=== PATIENT | male | born 1935 | race Caucasian/White ===

== ENCOUNTER 2016-05-21 16:19 | Emergency (ER) | payer OTHER ==
[~2016-05-21] VITALS: Ht 177.8 cm; Wt 95.1 kg
[~2016-05-21 16:19] MED LIST: ASCA500 PO; ASPEC81 PO; CRD200 PO; EZET10TA41 PO; LEVO-217 PO; LISI5TAB3 PO; OMEG10007 PO
[2016-05-21 16:21] VITALS: TEMP 36.7; Ht 177.8 cm; Wt 95.1 kg
[2016-05-21] MEDS ORDERED: SODIUM CHLORIDE 0.9% 1000ML 1,000 ML IV STA (16:39)
[2016-05-21] MEDS ORDERED: ONDANSETRON INJ 2 MG/ML 2 ML VIAL IV STA (16:39)
[2016-05-21] MEDS ORDERED: MoRPHine SULFATE 10 MG/ML CARP/VIAL IV PRN (16:45)
[2016-05-21 16:52] LABS: BASO % 0.3 %; BASO ABS # 0.02 K/uL (0-0.2); COMPLETE YES; EOS % 1.1 %; HEMATOCRIT 40.4 % (42-52); IG% 0.1 %; LYMPH % 13.8 %; LYMPH ABS # 0.99 K/uL (1.2-3.4); MEAN CELL VOLUME 94.4 fL (80-100); MEAN CORPUSCULAR HEMOGLOBIN 31.8 pg (25-34); MEAN CORPUSCULAR HGB CONC 33.7 g/dl (32-36); MEAN PLATELET VOLUME 11.5 fL (7.4-10.4); MONO % 6.3 %; NEUT % 78.4 %; PLATELET COUNT 188 K/uL (130-400); RED BLOOD COUNT 4.28 M/uL (4.7-6.1)
[2016-05-21] MEDS ORDERED: MULT-506 PO (16:54)
[2016-05-21] MEDS ORDERED: LEVO100T PO (16:54)
[2016-05-21] MEDS ORDERED: CHOL1000 PO (16:54)
[2016-05-21] MEDS ORDERED: ATOR-26 PO (17:02)
[2016-05-21 17:12] LABS: BUN/CREATININE RATIO 16.9 (10-20); CALCIUM 9.9 mg/dl (8.5-10.1); CREATININE 1.6 mg/dl (0.60-1.40); POTASSIUM 3.9 mmol/L (3.5-5.1)
--- NOTE | 2016-05-21 17:19 | DIAGNOSTIC IMAGING REPORT ---
ABDOMEN AND PELVIS CT WITHOUT CONTRAST CT DOSE: 1404.88 mGy.cm HISTORY: Flank pain EVALUATE FLANK PAIN/HEMATURIA TECHNIQUE: Multiaxial CT images of the abdomen and pelvis were performed without the use of intravenous and oral contrast according to the standard department stone protocol. COMPARISON STUDY: None. FINDINGS: Minimal bibasilar atelectasis. Liver is unremarkable. Gallbladder is negative for distention. Fatty infiltration of the pancreas. Spleen is uniform. Left kidney demonstrate several parapelvic cysts with a 2 mm nonobstructing renal cortical calcification. Right kidney demonstrates several renal peripelvic cysts with mild superimposed hydronephrosis and hydroureter. There is a 4 mm obstructing calculus mid right ureter. Mild periureteral infiltrative change. Bladder is midline. There are no bladder calcifications. Findings of chronic colonic diverticulosis. 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 Bladder is midline. Maximum dimension IMPRESSION: 1. 4 mm obstructing calculus mid right ureter. 2. Mild right hydroureteronephrosis with mild perinephric and periureteral fat stranding. 3. 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 4. Nonobstructive bowel pattern. 6. Chronic colonic diverticulosis. Electronically signed by: Pepe Haque M.D. 05/21/2016 5:17 PM Dictated Date/Time: 05/21/2016 5:14 PM
--- NOTE | 2016-05-21 17:28 | EMERGENCY ROOM VISIT NOTE ---
ED Visit Note First contact with patient: 16:24 Patient was seen by our PA/ENGRAVING OPERATOR. I was involved in the patient's care and did evaluate the patient myself. I was involved in the care throughout the ER stay. The patient presents with right flank pain. He has an obstructing right ureteral calculus by CT. He is stable for discharge with outpatient follow-up.
[2016-05-21] MEDS ORDERED: TAMS0.4C38 PO (17:35)
[2016-05-21] MEDS ORDERED: HYDR-5688 PO (17:37)
[2016-05-21 18:11] VITALS: BP 150/81; PULSE 59; O2SAT 98
--- NOTE | 2016-05-21 23:02 | EMERGENCY ROOM VISIT NOTE ---
ED Visit Note First contact with patient: 16:24 Chief Complaint: Abdominal pain. History of Present Illness: Mr. Pickett is a 80 year-old white male who is brought into the ED via ambulance complaining of right mid quadrant abdominal pain. Historically patient reports he has a history of kidney stones Patient reports a acute mid right onset of quadrant abdominal pain that started approximately 2 hours ago while he was driving home from [place]. At that time he reports his pain was sharp. He rated his discomfort 4/10. He does report her lab the pain started he noticed that the discomfort was radiating towards the right flank area. He reports he was having difficulty driving due to pain and stopped at a local fire station. EMS was activated and he was brought into the ED. While waiting for the ambulance arrived he reports he became nauseated and had one episode of vomiting. He had no additional symptoms. Additionally he does report that he has been feeling well over the last few days and his previous passage of kidney stone was over 20 years ago and he remember the pain being more severe. Since vomiting he reports he is pain-free. Patient denies fevers, chills, sweats, skin eruptions, skin color changes, upper respiratory tract symptoms, shortness of breath, chest pain, diarrhea, constipation, rectal bleeding, black/tarry stools, urinary symptoms, hematuria. Review of Systems: As noted above in history of present illness. All body systems were reviewed and found to be negative as noted above. Past Medical History: As previously noted myocardial infarction, hypertension, hypothyroidism, atrial fibrillation, dyslipidemia, S/P right upper lobectomy. Current Medications: Medications Dose Route/Sig Max Daily Dose Days Date Category Dose Instructions Lipitor (Atorvastatin Calcium) 80 Mg Tab 80 Mg PO HS 05/21/16 Reported Multivitamin (Multivitamins) Tab 1 Tab PO DAILY 05/21/16 Reported Vitamin D3 (Cholecalciferol) 1,000 Unit Tab 1 Tab PO DAILY 05/21/16 Reported Synthroid (Levothyroxine Sodium) 100 Mcg Tab 100 Mcg PO DAILY 05/21/16 Reported [place]-3 (Fish Oil) 1 Ea Cap 3 Cap PO DAILY 03/31/08 Reported Ecotrin Or Generic * (Aspirin) 81 Mg Ectab 81 Mg PO DAILY 03/31/08 Reported Zestril (Lisinopril) 5 Mg Tab 5 Mg PO DAILY 03/31/08 Reported Cordarone * (Amiodarone HCl) 200 Mg Tab 200 Mg PO DAILY 03/31/08 Reported Allergies to Medications: Patient denies. Social History: Patient is currently retired; he feels safe in his home environment; he denies tobacco use. Physical Examination: Vital Signs: Date Time Temp Pulse Resp B/P Pulse Ox O2 Delivery O2 Flow Rate FiO2 05/21/16 17:12 59 05/21/16 16:21 36.7 59 18 161/79 99 Room Air GENERAL: 80-year-old male in no acute distress, nontoxic-appearing, afebrile and hemodynamically stable. NEUROLOGICAL: Awake, alert and oriented to person, place and time. Answering questions appropriately and following commands. Normal gait. Good hand eye coordination. SKIN: Warm, dry and pink. No soft tissue eruptions or trauma noted. HEENT: Atraumatic and normocephalic. PERRL. Sclera white and conjunctiva pink. Oral cavity moist and pink. Pharynx is nonerythematous or edematous. Speech normal. No lymphadenopathy. Trachea midline. No jugular venous distention. BACK: No tenderness over the bony spine. No CVA tenderness. THORAX: Lungs sounds are clear to auscultation and equal bilaterally with symmetrical chest wall. No wheezing, rales or rhonchi. No crepitus, tenderness , subcutaneous air or deformities noted. HEART: Regular rate and rhythm. No gallops, rubs or murmurs are appreciated. ABDOMEN: Flat, soft and nontender. Positive bowel sounds in all quadrants. No guarding, rigidity or organomegaly. EXTREMITIES: Moves all extremities well on command and with purpose. All distal neurovascular statuses are intact and equal bilaterally. ED Course: Patient is assessed as noted above. Laboratory Testing: Test 05/21/16 16:35 Range/Units White Blood Count 7.20 4.8-10.8 K/uL Red Blood Count 4.28 4.7-6.1 M/uL Hemoglobin 13.6 14.0-18.0 g/dL Hematocrit 40.4 42-52 % Mean Corpuscular Volume 94.4 80-100 fL Mean Corpuscular Hemoglobin 31.8 25-34 pg Mean Corpuscular Hemoglobin Concent 33.7 32-36 g/dl Platelet Count 188 130-400 K/uL Mean Platelet Volume 11.5 7.4-10.4 fL Neutrophils (%) (Auto) 78.4 % Lymphocytes (%) (Auto) 13.8 % Monocytes (%) (Auto) 6.3 % Eosinophils (%) (Auto) 1.1 % Basophils (%) (Auto) 0.3 % Neutrophils # (Auto) 5.65 1.4-6.5 K/uL Lymphocytes # (Auto) 0.99 1.2-3.4 K/uL Monocytes # (Auto) 0.45 0.11-0.59 K/uL Eosinophils # (Auto) 0.08 0-0.5 K/uL Basophils # (Auto) 0.02 0-0.2 K/uL RDW Standard Deviation 52.3 36.4-46.3 fL RDW Coefficient of Variation 15.2 11.5-14.5 % Immature Granulocyte % (Auto) 0.1 % Immature Granulocyte # (Auto) 0.01 0.00-0.02 K/uL Sodium Level 146 136-145 mmol/L Potassium Level 3.9 3.5-5.1 mmol/L Chloride Level 111 98-107 mmol/L Carbon Dioxide Level 33 21-32 mmol/L Anion Gap 2.0 3-11 mmol/L Blood Urea Nitrogen 27 7-18 mg/dl Creatinine 1.60 0.60-1.40 mg/dl Est Creatinine Clear Calc Drug Dose 43.3 ml/min Estimated GFR () 46.8 Estimated GFR (Non- 40.4 BUN/Creatinine Ratio 16.9 10-20 Random Glucose 178 70-99 mg/dl Calcium Level 9.9 8.5-10.1 mg/dl Total Bilirubin 0.4 0.2-1 mg/dl Direct Bilirubin 0.2 0-0.2 mg/dl Aspartate Amino Transf (AST/SGOT) 38 15-37 U/L Alanine Aminotransferase (ALT/SGPT) 36 12-78 U/L Alkaline Phosphatase 75 45-117 U/L Total Protein 7.0 6.4-8.2 gm/dl Albumin 3.5 3.4-5.0 gm/dl Lipase 110 73-393 U/L Noncontrast Abdominal/Pelvic CT: Was reviewed by myself and read by the radiologist and shows 4 mm obstructing calculus in the right mid ureter, mild right hydroureterophrosis with mild perinephric and per ureteric fat stranding, calcified aneurysms in the mid abdominal aorta as well as the right iliac artery , nonobstructive bowel gas pattern, chronic colonic diverticulosis without signs of diverticulitis. Patient was hydrated with normal saline and received 4 mg of Zofran IV. Patient was reassessed multiple times during his stay in the emergency department. Patient's case was reviewed with Dr. Cardenas; he apparently assessed the patient we agreed on diagnostic approach, treatment, disposition and plan. Patient was educated about tonight's findings and instructed on his treatment plan; he verbalizes understanding and agreement with this plan. Clinical Impression: Right ureter calculus. Decision-Making: Initially my differential diagnosis I considered kidney stone, pyelonephritis, pancreatitis, hepatitis, bowel obstruction, constipation, musculoskeletal disorder, appendicitis and other causes. Disposition: Patient discharged home in stable condition; prior to departure he was reassessed and remained pain-free and reported resolution of nausea. Plan: Patient was prescribed 0.4 mg of Flomax once a day for 5 days. Patient was placed on a sliding pain scale of ibuprofen, acetaminophen and [place] as needed; he was instructed on the proper precautions of narcotics. Patient was encouraged to stay well-hydrated increase clear fluids. Patient was encouraged to strain all urine for stones. Patient was encouraged to follow-up with personal physician for recheck and referral to urology. Patient was encouraged return the ED for worsening symptoms, fevers, or any new/ concerning symptoms.
== END 2016-05-21 18:13 | disposition home or self-care (01) ==
LOC: EDBD 16:19 → C.EDC 16:20
DX: N20.1 Calculus of ureter (principal); I25.2 Old myocardial infarction; I10 Essential (primary) hypertension; E03.9 Hypothyroidism, unspecified; I48.91 Unspecified atrial fibrillation; E78.5 Hyperlipidemia, unspecified; Z79.82 Long term (current) use of aspirin

== ENCOUNTER 2016-05-30 16:34 | Emergency (ER) | payer OTHER ==
[~2016-05-30 16:34] MED LIST changes: -ASCA500 PO; +ATOR-26 PO; +CHOL1000 PO; -EZET10TA41 PO; +HYDR-5688 PO; -LEVO-217 PO; +LEVO100T PO; +MULT-506 PO
[2016-05-30 16:46] VITALS: TEMP 36.3
[2016-05-30] MEDS ORDERED: SODIUM CHLORIDE 0.9% 500ML 500 ML IV STA (17:14)
[2016-05-30] MEDS ORDERED: KETOROLAC TROMETHAMINE 30 MG/ML VIAL IV STA (17:14)
[2016-05-30] MEDS ORDERED: PROMETHAZINE HCL INJ 12.5 MG in SODIUM CHLORIDE 0.9% 50ML 50 ML IV STA (17:56)
[2016-05-30 18:00] LABS: BASO % 0.2 %; BASO ABS # 0.02 K/uL (0-0.2); COMPLETE YES; EOS % 1.2 %; HEMATOCRIT 41.2 % (42-52); IG% 0.3 %; LYMPH % 12.2 %; LYMPH ABS # 1.27 K/uL (1.2-3.4); MEAN CELL VOLUME 93.4 fL (80-100); MEAN CORPUSCULAR HEMOGLOBIN 31.5 pg (25-34); MEAN CORPUSCULAR HGB CONC 33.7 g/dl (32-36); MEAN PLATELET VOLUME 11.6 fL (7.4-10.4); MONO % 7.9 %; NEUT % 78.2 %; PLATELET COUNT 205 K/uL (130-400); RED BLOOD COUNT 4.41 M/uL (4.7-6.1); WHITE BLOOD COUNT 10.42 K/uL (4.8-10.8)
[2016-05-30] MEDS ORDERED: CRD200 PO (18:11)
[2016-05-30] MEDS ORDERED: ASPI81CH2 PO (18:11)
[2016-05-30] MEDS ORDERED: LSN5 PO (18:11)
[2016-05-30 18:16] LABS: BLOOD UREA NITROGEN 27 mg/dl (7-18); BUN/CREATININE RATIO 16.7 (10-20); CALCIUM 9.8 mg/dl (8.5-10.1); CARBON DIOXIDE 30 mmol/L (21-32); CHLORIDE 108 mmol/L (98-107); GLUCOSE 164 mg/dl (70-99); SODIUM 142 mmol/L (136-145)
--- NOTE | 2016-05-30 19:14 | DIAGNOSTIC IMAGING REPORT ---
KUB CLINICAL HISTORY: Nephrolithiasis. Flank pain. Known obstructing right ureteral calculus. FINDINGS: 2 AP supine abdominal radiographs are correlated with abdominal CT dated 05/21/2016. There is a nonobstructed abdominal bowel gas pattern. A 5 mm calcification projects over the right vesicoureteral junction. This likely represents distal passage of the patient's known obstructing right ureteral stone. No additional calcifications are seen projecting over either kidney. Additional vascular calcifications and phleboliths are identified in the pelvis. There is advanced atherosclerotic calcification of the abdominal aorta. The skeletal structures are osteopenic. There is moderate lumbosacral spondylosis. The bony pelvis appears intact. IMPRESSION: A 5 mm calcification projects over the right vesicoureteral junction. This likely represents distal passage of the patient's known right ureteral stone. Electronically signed by: Jacobo Parham M.D. 05/30/2016 7:12 PM Dictated Date/Time: 05/30/2016 7:09 PM
[2016-05-30 19:54] VITALS: BP 159/84; PULSE 56; O2SAT 97
--- NOTE | 2016-05-30 20:02 | EMERGENCY ROOM VISIT NOTE ---
History Report prepared by Latia: Lopez Butler Under the Supervision of: Dr. Noel Grover M.D. First contact with patient: 17:08 Chief Complaint: KIDNEY STONE Stated Complaint: KIDNEY STONE History of Present Illness The patient is a 80 year old male who presents to the Emergency Room with complaints of worsening right flank pain that started around 1300 this afternoon. The patient says the pain radiates into the right groin and the pain is sharp. He says the pain is currently terrible. He was here May 21 and was diagnosed with a right kidney stone. The patient's kidney stone pain started flaring up again today. He got his prescription of pain medication, but he has not taken it yet because he says he has not had much pain over the past week. The patient denies vomiting or urinary symptoms. He is on Flomax. Source of History: patient Onset: Around 1300 today Position: other (right flank) Symptom Intensity: severe Quality: other (kidney stone pain) Timing: worsening Associated Symptoms: + back pain, No urinary symptoms, No vomiting Review of Systems See HPI for pertinent positives & negatives. A total of 10 systems reviewed and were otherwise negative. Past Medical & Surgical Medical Problems: (1) Atrial fibrillation (2) Heart disease (3) No chronic diseases present Family History Cancer Kidney disease Social History Smoking Status: Former Smoker Smokeless Tobacco Use: No Alcohol Use: none Marital Status: Occupation Status: retired Current/Historical Medications Scheduled Amiodarone HCl (Amiodarone HCl), 200 MG PO DAILY Aspirin (Aspirin), 1 TAB PO DAILY Atorvastatin (Lipitor), 80 MG PO HS Cholecalciferol (Vitamin D3), 1 TAB PO DAILY Fish Oil ([place]-3), 3 CAP PO DAILY Levothyroxine Sodium (Synthroid), 100 MCG PO DAILY Lisinopril (Lisinopril), 5 MG PO DAILY Multivitamin (Multivitamin), 1 TAB PO DAILY Allergies Coded Allergies: No Known Allergies (Verified , 05/30/16) Uncoded Allergies: TAPE - USE PAPER TAPE (Allergy, Unknown, 03/31/02) Physical Exam Vital Signs Date Time Temp Pulse Resp B/P Pulse Ox O2 Delivery O2 Flow Rate FiO2 05/30/16 19:54 56 18 159/84 97 Room Air 05/30/16 16:46 36.3 48 20 147/69 98 Room Air Physical Exam Constitutional: Vital signs reviewed. Eyes: Pupils are equal round reactive to light. Conjunctiva are noninjected. ENT: Pharynx is clear without erythema or exudate. Mucous membranes are moist. Neck supple without meningeal signs. Respiratory: Clear to auscultation bilaterally. Breath sounds are equal bilaterally. Cardiovascular: Regular rate and rhythm. No rubs or gallops. GI: Soft, nondistended and nontender. Bowel sounds are present. Musculoskeletal: No peripheral edema. No lower extremity tenderness. Integumentary: No cyanosis. Neurological: The patient is awake and alert. No focal deficits. Psychiatric: Normal affect. Medical Decision & Procedures ER Provider Diagnostic Interpretation: X-ray results as stated below per interpretation by me and the radiologist: KUB CLINICAL HISTORY: Nephrolithiasis. Flank pain. Known obstructing right ureteral calculus. FINDINGS: 2 AP supine abdominal radiographs are correlated with abdominal CT dated 05/21/2016. There is a nonobstructed abdominal bowel gas pattern. A 5 mm calcification projects over the right vesicoureteral junction. This likely represents distal passage of the patient's known obstructing right ureteral stone. No additional calcifications are seen projecting over either kidney. Additional vascular calcifications and phleboliths are identified in the pelvis. There is advanced atherosclerotic calcification of the abdominal aorta. The skeletal structures are osteopenic. There is moderate lumbosacral spondylosis. The bony pelvis appears intact. IMPRESSION: A 5 mm calcification projects over the right vesicoureteral junction. This likely represents distal passage of the patient's known right ureteral stone. Electronically signed by: Jacobo Parham M.D. 05/30/2016 7:12 PM Dictated Date/Time: 05/30/2016 7:09 PM Laboratory Results 05/30/16 17:50 Red Blood Count 4.41, Mean Corpuscular Volume 93.4, Mean Corpuscular Hemoglobin 31.5, Mean Corpuscular Hemoglobin Concent 33.7, Mean Platelet Volume 11.6, Neutrophils (%) (Auto) 78.2, Lymphocytes (%) (Auto) 12.2, Monocytes (%) (Auto) 7.9, Eosinophils (%) (Auto) 1.2, Basophils (%) (Auto) 0.2, Neutrophils # (Auto) 8.16, Lymphocytes # (Auto) 1.27, Monocytes # (Auto) 0.82, Eosinophils # (Auto) 0.12, Basophils # (Auto) 0.02 05/30/16 17:50 Test 05/30/16 17:50 White Blood Count 10.42 K/uL (4.8-10.8) Red Blood Count 4.41 M/uL (4.7-6.1) Hemoglobin 13.9 g/dL (14.0-18.0) Hematocrit 41.2 % (42-52) Mean Corpuscular Volume 93.4 fL (80-100) Mean Corpuscular Hemoglobin 31.5 pg (25-34) Mean Corpuscular Hemoglobin Concent 33.7 g/dl (32-36) Platelet Count 205 K/uL (130-400) Mean Platelet Volume 11.6 fL (7.4-10.4) Neutrophils (%) (Auto) 78.2 % Lymphocytes (%) (Auto) 12.2 % Monocytes (%) (Auto) 7.9 % Eosinophils (%) (Auto) 1.2 % Basophils (%) (Auto) 0.2 % Neutrophils # (Auto) 8.16 K/uL (1.4-6.5) Lymphocytes # (Auto) 1.27 K/uL (1.2-3.4) Monocytes # (Auto) 0.82 K/uL (0.11-0.59) Eosinophils # (Auto) 0.12 K/uL (0-0.5) Basophils # (Auto) 0.02 K/uL (0-0.2) RDW Standard Deviation 50.7 fL (36.4-46.3) RDW Coefficient of Variation 14.9 % (11.5-14.5) Immature Granulocyte % (Auto) 0.3 % Immature Granulocyte # (Auto) 0.03 K/uL (0.00-0.02) Anion Gap 4.0 mmol/L (3-11) Estimated GFR () 46.8 Estimated GFR (Non- 40.4 BUN/Creatinine Ratio 16.7 (10-20) Calcium Level 9.8 mg/dl (8.5-10.1) Laboratory results as reviewed by me. Medications Administered Medications (Trade) Dose Ordered Sig/Taylor Route Start Time Stop Time Status Last Admin Dose Admin Sodium Chloride (Nss 500ml) 500 ml @ 999 mls/hr Q31M STAT IV 05/30/16 17:14 05/30/16 17:44 DC 05/30/16 18:03 999 MLS/HR Ketorolac Tromethamine 10 mg 10 mg NOW STAT IV 05/30/16 17:14 05/30/16 17:16 DC 05/30/16 18:04 10 MG Promethazine HCl/ Sodium Chloride (Phenergan Inj/ Nss 50ml) 50.5 ml @ 204 mls/hr NOW STAT IV 05/30/16 17:56 05/30/16 18:10 DC 05/30/16 18:13 204 MLS/HR ED Course 1710: The patient was evaluated in room B7. A complete history and physical exam was performed. 1713: Ordered Toradol Inj 10 mg IV, NSS 500 ml @ 999 mls/hr IV. 1755: Ordered Promethazine HCl 12.5mg/Sodium Chloride 50.5 ml @ 204 mls/hr IV. 1756: I reevaluated the patient and he says that he does not feel any different , but he has not received any medications yet. 1841: I reevaluated the patient and he feels much better. 1928: I reevaluated the patient and he feels fine with no pain. He has Flomax and Sutton at home. The nurse will dip his urine. The patient verbally expressed understanding and agreement of the treatment plan. The patient will be discharged. 1948: The urine dip showed blood and protein. Medical Decision This is a 80-year-old male who presents with renal colic.I did perform a limited focused review of portions of the patient's old chart on the electronic medical record. The patient was here May [address] scan which showed a 4 mm mid-right ureteral stone with mild hydronephrosis, a 3.5 cm aneurysm of the aorta as well as a small aneurysm of the right iliac. I did evaluate the patient as noted above. IV access was established. Urine dip did not show any evidence of infection. I did order and review the patient' s blood work as noted in the electronic medical record. Creatinine is 1.6 which is unchanged. I did treat patient with Toradol 10 mg IV, Phenergan IV and normal saline IV. I did order a KUB x-ray. I did review the images myself as well as the radiology report as described above. His stone appears to be down in the UVJ on the right side. I did reassess the patient. He is feeling much better at this time and has no significant pain. He was informed of his test results. He will continue taking Flomax until he passes the stone. He will use Sutton for pain control as prescribed by the previous condition. He was discharged in good condition. Impression Primary Impression: Renal colic Scribe Attestation The scribe's documentation has been prepared under my direct and personally reviewed by me in its entirety. I confirm that the note above accurately reflects all work, treatment, procedures, and medical decision making performed by me. Departure Information Dispostion Home / Self-Care Referrals Grace Silverman M.D. (PCP) Forms HOME CARE DOCUMENTATION FORM, IMPORTANT VISIT INFORMATION Patient Instructions Kidney Stones Expectant Therapy, My [facility] Additional Instructions You have been examined and treated today on an emergency basis only. This is not a substitute for, or an effort to provide, complete comprehensive medical care. It is impossible to recognize and treat all injuries or illnesses in a single emergency department visit. It is therefore important that you follow up closely with your physician. Call as soon as possible for an appointment. Return for worsening symptoms or if you develop fever, vomiting, or any other concerning symptoms.
[2016-05-30 20:20] LABS: URINE APPEARANCE CLEAR (CLEAR); URINE BILIRUBIN NEG (NEG); URINE COLOR DK YELLOW; URINE EPITHELIAL CELL AUTO 0-5 /lpf (0-5); URINE NITRITE NEG (NEG); URINE PH 5.5 (4.5-7.5); UROBILINOGEN NEG (NEG)
[2016-05-30 20:21] LABS: MANUAL MICROSCOPIC REQUIRED? NO; REVIEW REQ? YES
== END 2016-05-30 19:58 | disposition home or self-care (01) ==
LOC: C.EDB 16:35
DX: N20.1 Calculus of ureter (principal); I71.9 Aortic aneurysm of unspecified site, without rupture; I48.91 Unspecified atrial fibrillation; I51.9 Heart disease, unspecified; Z87.891 Personal history of nicotine dependence; Z79.82 Long term (current) use of aspirin; Z79.899 Other long term (current) drug therapy; Z80.9 Family history of malignant neoplasm, unspecified; Z84.1 Family history of disorders of kidney and ureter

== ENCOUNTER 2024-04-03 21:47 | Inpatient (IN) ==
--- OUTSIDE RECORDS SUMMARY | 2024-04-03 21:54 | External Medical Summary | Summary of Care ---
Author Name Unknown Organization [facility] Address [address] [place] [address] Phone [phone] Care Team Providers Care Well Logging Captain Mud Analysis Name Role Phone Edgardo Sánchez Primary Care Provider Reason for Visit * Reason Comments Medication Refill Encounter Details Date Type Department Care Team (Late st Contact Info) Description 03/07/2024 Refill isinger at Home, [facility] [address] [place] [address] Delgado Velázquez MD [address] [place] [address] COPD, group A, by GOLD 2017 classification (HCC) Allergies Active Allergy Reactions Criticality Noted Date Comments Jason Inhibitors Edema face/lips/tongue High 4 angioedema Latex 07/21/2016 Pt states he breaks out from this documented as of this encounter (statuses as of 03/07/2024) Medications ASPIRIN 81 MG PO TABSIndications:Cor onary atherosclerosis 1 daily 0 0 05/17/19 08 Active VITAMIN D 1000 UNIT PO CAPS 1 capsule daily 0 0 12/09/19 09 Active Multi-Vitamins Oral Tablet Take 1 Tablet by mouth in the morning. Active Diclofenac Sodium 1 % External Gel (Voltaren)Indicatio ns:Osteoarthritis of left knee, unspecified osteoarthritis type Apply 4 g topically to affected area 3 times a day as needed for Pain, Moderate. Apply to the affected knee as needed. 1100 g 5 3 5:05 PM EST 01/10/20 23 Active Additional Information Patient not taking.Reported on 03/02/2024 Levothyroxine Sodium 100 MCG Oral Tablet (Levoxyl)Indication s:Hypothyroidism due to acquired atrophy of thyroid TAKE ONE TABLET BY MOUTH DAILY AT LEAST 30 MINUTES PRIOR TO FIRST MEAL OF THE DAY OR OTHER MEDS 100 Tablet 3 4 7:55 AM EST 03/12/19 24 025 Active Atorvastatin Calcium 80 MG Oral Tablet (Lipitor)Indication s:Dyslipidemia, goal LDL below 100 TAKE ONE TABLET BY MOUTH EVERY MORNING 100 Tablet 3 4 9:23 AM EST 03/16/19 24 Active Amiodarone HCl 200 MG Oral Tablet (Cordarone)Indicati ons:Paroxysmal atrial fibrillation (HCC) TAKE ONE TABLET BY MOUTH EVERY MORNING 100 Tablet 3 4 7:19 AM EST 07/21/19 24 025 Active Albuterol Sulfate HFA 108 (90 Base) MCG/ACT Inhalation Aerosol SolutionIndications :COPD, group A, by GOLD 2017 classification ([facility]),COPD exacerbation (HCC) Inhale 2 Puffs by mouth every 6 hours as needed for Shortness of Breath. 6.7 g 3 4 10:57 AM EST 12/29/19 24 Active Fluticasone-Salmete rol 250-50 MCG/ACT Inhalation Aerosol Powder Breath Activated (Advair Diskus)Indications: COPD, group A, by GOLD 2017 classification ([facility]),COPD exacerbation (HCC) Inhale 1 Puff by mouth in the morning and 1 Puff before bedtime. 60 Each 12 4 4:19 PM EST 01/13/20 24 Active Additional Information Patient taking differently: (No dose reported), Inhalation BID (.AM/PM),Pt taking 500/50 currently and plans to switch to 250/50 when he runs out of 500/50, Reported on 03/02/2024 Furosemide 20 MG Oral Tablet (Lasix) Take 1 Tablet by mouth as needed for Shortness of Breath, swelling 30 Tablet 11 5 6:30 PM EST 03/02/19 25 Active Incruse Ellipta 62.5 MCG/ACT Inhalation Aerosol Powder Breath Activated (umeclidinium [place])Indications :COPD, group A, by GOLD 2017 classification ([facility]) Inhale 1 Puff by mouth in the morning. 90 Each 03/07/19 25 Active Incruse Ellipta 62.5 MCG/ACT Inhalation Aerosol Powder Breath Activated (umeclidinium [place])Indications :COPD, group A, by GOLD 2017 classification ([facility]) Inhale 1 Puff by mouth in the morning. 90 Each 4 11:05 AM EST 01/08/20 24 025 Discontin ued(Refil l) documented as of this encounter (statuses as of 03/07/2024) Active Problems Problem Noted Date Diagnosed Date HFrEF (heart failure with reduced ejection fract ion) 02/21/2024 Assessment & Plan (02/21/2024 10:02 PM EST): Euvolemic today Not on diuretic No longer on jason/arb due to angioedema Disorder of parathyroid gland 02/21/2024 Assessment & Plan (02/21/2024 10:02 PM EST): S/p parathyroidectomy Hypothyroidism 02/21/2024 Assessment & Plan (02/21/2024 10:02 PM EST): Continue synthroid H/O endovascular stent graft for abdominal aorti c aneurysm 12/09/2023 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 05/25/2023 Overview: Per CKD protocol Assessment & Plan (02/21/2024 10:02 PM EST): BP slightly elevated today, will continue to monitor for now Assessment & Plan (12/16/2023 11:49 AM EDT): Current CKD Stage: Stage III "RED FLAG" symptoms: NO IDENTIFIED SYMPTOMS CKD Complications: CAD HTN Additional Comments Recently d/c lisinopril due to angioedema BP stable today Chronic kidney disease, stage 3b 05/25/2023 Overview: Per CKD protocol Type 2 diabetes mellitus wit h stage 3b chronic kidney disease 05/25/2023 Overview: Per CKD protocol Assessment & Plan (02/21/2024 10:02 PM EST): A1c improved past 2 years Infrarenal abdominal aortic aneurysm (AAA) witho ut rupture 12/18/2021 Overview (12/16/2023): 11/27/23- S/P repair of asymptomatic 6.0 cm AAA with EVAR, RCIA extension graft, coil embolization of RIIA and viabahn stent into REIA by Dr. Crenshaw Iliac artery aneurysm, bilateral 12/18/2021 Type 2 diabetes mellitus wit h hemoglobin A1c goal of less than 8.0% 05/22/2021 Asymptomatic bilateral carotid artery stenosis 0 05/09/2020 Age-related osteoporosis wit hout current pathological fracture 05/09/2020 Assessment & Plan (02/21/2024 10:02 PM EST): Vitamin D Coronary artery disease invo lving shinnecock coronary artery of shinnecock heart without angina pectoris 05/09/2020 Overview (12/16/2023): Nuclear stress 09/04/2023: Interpretation Summary The LV ejection fraction is calculated at 59%. This pharmacologic nuclear stress trest reveals an infarct of the inferior and inferior lateral myocardium and no active ischemia. These findings are most consistent with the Right Coronary or Left Circumflex arteries. No prior studies for comparison. Assessment & Plan (02/21/2024 10:02 PM EST): Follows with cardiology S/p inferior wall NH Assessment & Plan (12/16/2023 11:48 AM EDT): Continue statin COPD, group A, by GOLD 2017 classification 11/27 Overview: Per COPD GOLD Classification Assessment & Plan (02/21/2024 10:02 PM EST): "RED FLAG" COPD symptoms: Increased dyspnea on exertion Cough Wheezing Medication Regimen All Classes - JASBIR Class B, C, D - LAMA Class D, Asthma/COPD Overlap - Inhaled Glucocorticoid-LABA Combination Inhaler Remote Patient Monitoring Vendor: No Connected RPM Device(s): No current devices Self-Management plan Other/Additional Comments: albuterol q4hrs prn Exacerbation plan Solumedrol 40mg IM/IV Chest Xray Additional Comments: Breathing at baseline today Encouraged use of albuterol if needed for sob/wheezing(reports he did not know what this was for) History of NH (myocardial infarction) 07/11/2016 Abdominal aortic aneurysm (AAA) without rupture 05/09/2016 Paroxysmal atrial fibrillation 05/09/2016 Assessment & Plan (02/21/2024 10:02 PM EST): Rate controlled, continue amiodarone Not on anticoag Beta-blockers contraindicated 11/13/2011 HTN, goal below 140/90 09/15/2011 Dyslipidemia, goal LDL below 100 01/25/2009 Overview (01/25/2009): Per Lipid Taxonomy. Assessment & Plan (02/21/2024 10:02 PM EST): Continue statin CHR ISCHEMIC HRT DIS NOS 03/31/2002 Overview (03/17/2012): Vivek documented as of this encounter (statuses as of 03/07/2024) Resolved Problems Problem Noted Date Diagnosed Date Resolved Date Type 2 diabetes mellitus wit h stage 3b chronic kidney disease, without long-term current use of insulin 02/21/2024 03/03/2024 Disorder of parathyroid gland 01/06/2023 11/11/2023 Type 2 diabetes mellitus wit h stage 3a chronic kidney disease, without long-term current use of insulin 11/11/2021 05/28/2023 Overview: Per CKD protocol Stage 3a chronic kidney disease 06/26/2020 05/28/2023 Overview: Per CKD protocol Hypertensive kidney disease with stage 3a chronic kidney disease 12/26/2019 05/28/2023 Overview: Per CKD protocol Prediabetes 10/25/2019 05/22/2021 Overview: Per Prediabetes protocol History of kidney stones 12/31/2018 Overview (07/05/2019): Historical. H/O adenomatous polyp of colon 06/21/2018 07/05/2019 Overview (07/05/2019): Historical. Hypertensive kidney disease with chronic kidney disease stage III 06/21/2018 12/29/2019 Overview: Per CKD protocol Hyperparathyroidism, primary 05/12/2016 11/25/2016 COPD, moderate 03/28/2014 12/01/2019 Overview: Per COPD GOLD Classification Kidney disease, chronic, sta ge III (GFR 30-59 ml/min) 04/11/2013 06/30/2018 Overview: Per CKD protocol #[address] Patel 03/31/2011 Hypothyroidism due to medication 05/29/2010 02/21/2024 Carotid stenosis, non-symptomatic 08/03/2008 11/11/2021 Overview (08/03/2008): Modified per Carotid Stenosis protocol #10 Benign neoplasm of colon 04/19/200707/2018 Overview (04/22/2007): adenomatous repeat colonoscopy in 3 yrs Carotid Stenosis, non-symptomatic 04/29/2005 08/03/2008 Overview (08/03/2008): Modified per Carotid Stenosis protocol #10 ADVANCE DIRECTIVE INFORMATION 07/29/2004 12/21/2023 Overview (02/22/2009): Yes, Patient instructed to provide copy of advance directive for provider to review and to be scanned into Electronic Medical Record 08/10/2008 Patient needs to bring an updated copy of Living will since has . Silva Sanabria RN 02/22/2009 Patient has updated it and now needs to bring it in. Silva Sanabria RN hx of pneumonectomy 03/14/2000 07/05/19 20 Overview (07/05/2019): Historical. Calculus of kidney 9 ACUTE MYOCARDIAL INFARCTION; OTHER ANTERIOR WALL,EPISODE CARE UNSPECIFIED 07/11/2016 Dermatophytosis of nail 11/17 Mixed dyslipidemia 9 Overview (01/25/2009): Per Lipid Taxonomy. documented as of this encounter (statuses as of 03/07/2024) Immunizations Name Administration Dates Next Due H1N1 2009 Influenza, IM 01/16/2009 Pneumococcal Conjugate Vacc, 13 Valent (Prevnar) 03/28/2014 Season Influenza, Quad, PF, Adjuvanted, 65+ Yrs, IM (FLUAD) 12/18/2023 Seasonal Influenza Vac., MDV , IM, 0.5 mL (Fluzone) 11/13/2014,11/16/2012,11/17/2011,2010,11/07/2009,11/02/2008,11/26/2007,1 ,12/02/2005 Seasonal Influenza Virus Vac cine, Unspecified Formulation 11/21/2019,12/17/2016 Seasonal Influenza, High Dos e, Trivalent, PF, IM (Fluzone HD) 11/09/2021 Seasonal Influenza, PF, 6 M & above, IM , (FluLaval or Fluzone) 11/16/2022 Seasonal Influenza, Quadriva lent, No Preserve, IM 11/19/2020,11/22/2018,12/17/2017,2016,01/07/2016 TDAP (age 10 and older)(Boostrix) 06/09/2022, Varicella Zoster Vaccine (Adult) 10/10/2014 documented as of this encounter Social History Tobacco Use Types Packs/Day Years Used Date Smoking Tobacco: Former Cigarettes 1 28 0 02/16/1957 - 02/16/1985 Smokeless Tobacco: Never Alcohol Use Standard Drinks/Week Comments Yes 0 (1 standard drink = 0.6 oz pur e alcohol) rare PHQ-2 Answer Date Recorded PHQ Adult Total Score 0 12/01/2023 Hunger Vital Sign Answer Date Recorded Within the past 12 months, y ou worried that your food would run out before you got the money to buy more. Never true 12/01/19 24 Within the past 12 months, t he food you bought just didn't last and you didn't have money to get more. Never true 12/01/2023 Childcare Answer Date Recorded Do you feel overwhelmed with taking care of a child, family member or friend? No 12/01/2023 Does your family need help f inding childcare? (Household - for ages 0-17 years) Not on file 12/01/2023 Clothing Answer Date Recorded Have you been unable to get clothing when it was really needed? No 12/01/2023 Is your family able to get c lothes or diapers when needed? (Household - for ages 0-17 years) Not on file 12/01/2023 Personal Safety Answer Date Recorded Do you feel unsafe or have concerns for your saf ety? No 12/01/2023 Do you have concerns for you r family's safety? (Household - for ages 0-17 years) Not on file 12/01/2023 Utilities Answer Date Recorded Do you have trouble paying y our heating, water, or electric bill? No 12/01/2023 Is your family able to pay t he heat, water, or electric bill? (Household - for ages 0-17 years) Not on file 12/01/2023 Does your family have access to good internet? (Household - for ages 0-17 years) Not on file 12/01/2023 Employment Status Answer Date Recorded Are you unemployed or without regular income? No 12/01/2023 Does the household have a re gular source of income? (Household - for ages 0-17 years) Not on file 12/01/2023 Social Connections Answer Date Recorded How often do you feel lonely or isolated from th ose around you? Never 12/01/2023 Financial Resource Strain Answer Date R ecorded Do you have any trouble payi ng for your medications, or do you think you might in the future? No 12/01/2023 Does your family have troubl e paying for medicine? (Household - for ages 0-17 years) Not on file 12/01/2023 Transportation Needs Answer Date Record ed Do you have trouble getting a ride to medical visits or work? (Adult - for ages 18 years and over) Not on file 12/01/2023 Does your family have a hard time getting a ride to doctors visits? (Household - for ages 0-17 years) Not on file 12/01/2023 Has lack of transportation k ept you from medical appointments, meetings, work, or from getting things needed for daily living? Check all that apply. No 12/01/2023 Do you (or your family) have trouble finding or paying for a ride (transportation)? (Household - for ages 0-17 years) Not on file 12/01/2023 Housing Stability Answer Date Recorded Do you currently live in a s helter or have no steady place to sleep at night? No 12/01/2023 Do you think you are at risk of becoming homeless? (Adult - for ages 18 years and over) Not on file 12/01/2023 Does your family worry about paying for your home or becoming homeless? (Household - for ages 0-17 years) Not on file 1 Are you homeless or worried that you might be in the future? No 12/01/2023 Are you (or your family) john eless or worried that you might be in the future? (Household - for ages 0-17 years) Not on file Food Insecurity Answer Date Recorded Do you need food for this week? No 12/01/2023 Are you able to get enough f ood for your family? (Household - for ages 0-17 years) Not on file 12/01/2023 Does your family need food t his week? (Household - for ages 0-17 years) Not on file 12/01/2023 Do you always have enough fo od for your family? (Household - for ages 0-17 years) Not on file 12/01/2023 Sex and Gender Information Value Date Recorded Sex Assigned at Male 10/12/2019 8:18 AM EDT Legal Sex Male 5:58 AM EST Gender Identity Male 10/12/2019 8:18 AM EDT Sexual Orientation Straight 10/12/2019 8: 18 AM EDT documented as of this encounter Miscellaneous Notes * Telephone Encounter - Shana Nava PA-C - 03/07/2024 2:49 PM ESTSigned Prescriptions: Disp Refills Incruse Ellipta 62.5 MCG/ACT Inhalation Ae*90 Each0 Sig: Inhale 1 Puff by mouth in the morning. Authorizing Provider: SHANA NAVA * Telephone Encounter - Alexus Escamilla LPN - 03/07/2024 1:22 PM ESTPending Prescriptions: Disp Refills Incruse Ellipta 62.5 MCG/ACT Inhalation Ae*90 Each0 Sig: Inhale 1 Puff by mouth in the morning. * Telephone Encounter - Alexus Escamilla LPN - 03/07/2024 1:21 PM EST Did you pend patient's preferred pharmacy and medication before forwarding?no Pharmacy: [facility] Pending Prescriptions: Disp Refills Incruse Ellipta 62.5 MCG/ACT Inhalation A*90 Each0 Sig: Inhale 1 Puff by mouth in the morning. Last Visit: Visit date not found (in office), Visit date not found (telemedicine) Next Visit: 04/13/2024 If no future appointments scheduled, and last appointment is greater than a year ago, please schedule patient for a follow-up appointment Last date the medication was ordered: 01/08/24 Is this request for a controlled substance?No Urine Drug Screen:No results found. However, due to the size of the patient record, not all encounters were searched. Please check Results Review for a complete set of results. Patient Phone Numbers Labs: Lab Results Component Value Date/Time CREAT 1.9 (H) 11/28/2023 05:57 AM CREAT 1.4 (H) 10/12/2019 09:08 AM POTASSIUM 4.7 11/28/2023 05:57 AM POTASSIUM 5.0 10/12/2019 09:08 AM POTASSIUM 4.8 02/11/1996 07:33 PM TSH 0.78 11/11/2023 11:20 AM TSH 2.09 10/12/2019 09:08 AM LDL 52 11/11/2023 11:20 AM LDL 50 10/12/2019 09:08 AM LDL NOT APPLICABLE 10/12/2019 09:08 AM ALT 27 11/11/2023 11:20 AM ALT 26 12/15/2018 09:47 AM HGBA1C 5.8 (H) 11/11/2023 11:20 AM HGBA1C 6.2 (H) 10/12/2019 09:08 AM Alexus Escamilla LPN [facility] 03/07/2024,1:21 PM * Telephone Encounter - Lopez Jernigan [facility] - 03/07/2024 11:07 AM EST Pending Prescriptions: Disp Refills Incruse Ellipta 62.5 MCG/ACT Inhalation Ae*90 Each0 Sig: Inhale1 Puff by mouth in the morning. documented in this encounter Plan of Treatment Upcoming Encounters Date Type Department Care Team (Late st Contact Info) Description 04/12/2024 10:30 AM EST Office Visit Cardiology, [facility] [address] [address] Shaquille Le, [address] [place] [address] 04/13/2024 10:00 AM EST [facility] [address] [place] [phone] Christ Early, RN [address] [place] [address] 06/22/2024 10:00 AM EDT Imaging Radiology [address], [place] [address] [place] [phone] 06/22/2024 11:00 AM EDT Imaging Radiology [address], [place] [address] [place] [phone] 06/29/2024 10:30 AM EDT Office Visit Vascular Surgery, [facility] [address] [place] [phone] Saul Crenshaw MD [address] [place] [address] 08/11/2024 10:20 AM EDT Office Visit Family Practice [facility] [address] [place] [address] Gabi Vinson CRNP [address] [place] [phone] 11/15/2024 10:20 AM EDT Office Visit Family Practice [facility] [address] [place] [address] Edgardo Sánchez DO [address] [place] [address] Health Maintenance Due Date Last Done Comments Adult Wellness Visit 2002 *BISPHONATE OR OTHER ACCEPTABLE MEDICATION NEEDED FOR OSTEOPOROSIS (REFER TO SMARTSET #1146) 05/11/2020 Diabetic Foot Exam 06/04/2023 06/03/2022 COVID-19 Vaccine (1 - 2024-25 season) 2023 CKD PHOS USE SMARTSET 41490 01/15/202412/18, 06/03/2021, 04/24/2021, Additional history exists HbA1c 05/10/2024 11/11/2023, 12/18, 01/20/2022, Additional history exists TSH 11/10/2024 11/11/2023, /02/2023, 01/14/2023, Additional history exists Albumin/Creatinine Ratio 11/15/2024 024, 01/16/2023, 06/03/2021, Additional history exists O2 ASSESSMENT COMPLETED IN PAST YEAR FOR COPD 11/26/2024 11/27/2023 CKD HGB USE SMARTSET 44313 11/27/202411/27, 11/27/2023, 11/16/2023, Additional history exists Depression Screening 11/30/2024 12/01/2023, 11/11/19 Diabetic Eye Exam 12/28/2024 12/29/2023, , 01/29/2000 DTap/Tdap Vaccines (3 - Td or Tdap) 06/09/2032 06/09/2022, 09/15/2011, 01/16/1994 VITAMIN D LEVEL ONCE IN A LIFETIME-USE SMARTSET# 29441 Completed 03/29/2012, 10/24/2008 Pneumococcal Vaccine: 50+ Years Completed 03/28/2014, 02/03/2005, 01/25/1997, Additional history exists Zoster Vaccines Discontinued 10/10/2014 DXA Scan Discontinued 05/28/2016 Alpha-1 Antitrypsin Completed 11/09/2019 Influenza Vaccine (FLU shot) Completed 12/18/2023, 11/16/2022, 11/09/2021, Additional history exists HPV (Gardasil) Vaccine Aged Out No lo nger eligible based on patient's age to complete this topic Hepatitis B Vaccine Aged Out No longe r eligible based on patient's age to complete this topic MENINGOCOCCAL (MENACTRA/MENVEO) Aged Out No longer eligible based on patient's age to complete this topic documented as of this encounter Medical Devices Implanted Type Area Thermodynamics Engineer Device Identifier Shelf Expiration Date Model / Serial / Lot Lens Intraoc 19.0 - [id number] - [id number] Implanted:Qty: 1 on 06/18/2021 by Gilmer Davalos MD at OR [facility] Right: Eye [employer] 02/15/2026 [id number] / [id number] Plug Vasc Ampl 12mm 9-Plug-012 - [id number] Implanted:Qty: 1 on 11/27/2023 by Saul Crenshaw MD at OR [facility] Right: Iliac [employer] [id number] 2027 9-PLUG-01 [id number] 11mm X 10cm X 120cm Viabahn Endoprosthesis Stent Graft, With Heparin Bioactive Surface Implanted:Qty: 1 on 11/27/2023 by Saul Crenshaw MD at OR [facility] Right: Iliac [employer] [id number] 07/19/2026 [id number] / [id number] / [id number] Graft Abdominal 32x14.5kkr96ot Stent Control Trunk Ipsilateral System Leg Aortic Aneurysm Conformable Endoprosthesis With Active Excluder Aaa - [id number] Implanted:Qty: 1 on 11/27/2023 by Saul Crenshaw MD at OR [facility] N/A: Aorta [employer] [id number] 07/14/2026 [id number] / [id number] Grft Excldr 79iyo16.5cm - [id number] Implanted:Qty: 1 on 11/27/2023 by Saul Crenshaw MD at OR [facility] Left: Iliac [employer] 12/03/2025 [id number] / [id number] / [id number] Graft Excludr [id number] - [id number] Implanted:Qty: 1 on 11/27/2023 by Saul Crenshaw MD at OR [facility] Right: Iliac [employer] [id number] 07/29/2026 [id number] / [id number] / [id number] documented as of this encounter Visit Diagnoses Diagnosis Infrarenal abdominal aortic aneurysm (AAA) without rupture ([facility])- Primary H/O endovascular stent graft for abdominal aortic aneurysm Blood vessel replaced by other means Coronary artery disease involving shinnecock coronary artery of shinnecock heart without angina pectoris 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 ([facility]) Advanced care planning/counseling discussion Other specified counseling COPD, group A, by GOLD 2017 classification ([facility])- Primary Paroxysmal atrial fibrillation ([facility]) Atrial fibrillation Type 2 diabetes mellitus with stage 3b chronic kidney disease, without long-term current use of insulin ([facility]) 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 ([facility]) Coronary artery disease involving shinnecock coronary artery of shinnecock heart without angina pectoris Age-related osteoporosis without current pathological fracture Senile osteoporosis Dyslipidemia, goal LDL below 100 Other and unspecified hyperlipidemia HFrEF (heart failure with reduced ejection fraction) ([facility]) Disorder of parathyroid gland ([facility]) Unspecified disorder of parathyroid gland Hypothyroidism, unspecified type COPD, group A, by GOLD 2017 classification ([facility]) documented in this encounter Advance Directives * Full Code (Latest Code Status on File) Date Activated Date Inactivated Comments 11/27/2023 11:28 AM 11/28/2023 7:06 PM This orde r reflects the patients wishes and were consensually agreed upon. Question Answer Comments Discussion of Advance Direct matt occurred with: Not Discussed due to patient's condition Care Teams Well Logging Captain Mud Analysis Relationship Specialty Start Date End Date Edgardo Sánchez DO [address] [place] [id number] PCP - General Family Medicine 03/09/19 documented as of this encounter
--- OUTSIDE RECORDS SUMMARY | 2024-04-03 21:54 | External Medical Summary | Summary of Care ---
Author Name Unknown Organization [facility] Address [address] [place] [address] Phone [phone] Care Team Providers Care Cardiovascular Radiologic Technologist Name Role Phone Edgardo Sánchezmariel Primary Care Provider Reason for Referral * Evaluate & Treat - Unlimited Visits (Within 10 days (routine)) - Authorized Specialty Diagnoses / Procedures Referred By Albert moura Referred To Contact HOME CARE / Home Care Diagnoses Age-related osteoporosis without current pathological fracture Yon Bell PA-C [address] [place] [address] Phone: tel: fax: Referral ID Status Reason Start Date Expiration Date Visits Requested Visits Authorized [id number] Authorized Specialty Services Required 03/02/2024 [id number] Question Answer Referral Priority Within 10 days (routine) Where should this appointment be scheduled? [facility] Comments Documentation of [id number]-[id number] Encounter Addendum Patient Name: Nitin Pickett I certify that this patient is under my care and that I, or a nurse practitioner or physician's bacteriology research assistant working with me, had a ofuj-sv-gjch encounter that meets the physician tida-pg-[id number] encounter requirements with this patient on: The encounter with the patient was in whole, or in part, for the following medical condition, which is the primary reason for home health care (List medical condition): Gait dysfunction, ADL dysfunction I certify that, based on my findings, the following services are medically necessary home health services: Physical Therapy and Occupational Therapy To provide the following care/treatments: (All hospitalists not following the patient after discharge should complete this section): Primary Care Physician to follow home care plan of care after discharge: My clinical findings support the need for the above services because: Further, I certify that my clinical findings support that this patient is homebound (i.e. Absences from home require considerable and taxing effort and are for medical reasons or [facility] or infrequently or of short duration when for other reason) because: Physician Signature: Date of Signature: Physician Printed Name: Yon Bell PA-C Encounter Details Date Type Department Care Team (Late st Contact Info) Description 03/02/2024 12:30 PM EST [facility] [address] [address] Christ Early, DIANNA [address] [address] Age-related osteoporosis without current pathological fracture* Allergies Active Allergy Reactions Criticality Noted Date Comments Jason Inhibitors Edema face/lips/tongue High 4 angioedema Latex 07/21/2016 Pt states he breaks out from this documented as of this encounter (statuses as of 03/02/2024) Medications ASPIRIN 81 MG PO TABSIndications:Cor onary [...] :COPD, group A, by GOLD 2017 classification ([facility]),COPD exacerbation (HCC) Inhale 2 Puffs by mouth every 6 hours as needed for Shortness of Breath. 6.7 g 3 4 10:57 AM EST 12/29/19 24 Active Incruse Ellipta 62.5 MCG/ACT Inhalation Aerosol Powder Breath Activated (umeclidinium [place])Indications :COPD, group A, by GOLD 2017 classification ([facility]) Inhale 1 Puff by mouth in the morning. 90 Each 4 11:05 AM EST 01/08/20 24 Active Fluticasone-Salmete rol 250-50 MCG/ACT Inhalation Aerosol Powder Breath Activated (Advair Diskus)Indications: COPD, group A, by GOLD 2017 classification ([facility]),COPD exacerbation (HCC) Inhale 1 Puff by mouth in the morning and 1 Puff before bedtime. 60 Each 12 4 4:19 PM EST 01/13/20 24 Active Additional Information Patient taking differently: (No dose reported), Inhalation BID (.AM/PM),Pt taking 500/50 currently and plans to switch to 250/50 when he runs out of 500/50, Reported on 03/02/2024 documented as of this encounter (statuses as of 03/02/2024) Active Problems Problem Noted Date Diagnosed Date Type 2 diabetes mellitus wit h stage 3b chronic kidney disease, without long-term current use of insulin 02/21/2024 HFrEF (heart failure with reduced ejection fract [...] Vitamin D Coronary artery disease invo lving [facility] coronary artery of [facility] [place] heart without angina pectoris 05/09/2020 Overview (12/16/2023): [...] EST): Follows with cardiology S/p inferior wall AL Assessment & Plan (12/16/2023 11:48 AM EDT): [...] know what this was for) History of AL (myocardial infarction) 07/11/2016 Abdominal aortic aneurysm (AAA) [...] as of this encounter (statuses as of 03/02/2024) Resolved Problems Problem Noted Date Diagnosed Date Resolved Date Disorder of parathyroid gland 01/06/2023 11/11/2023 Type [...] as of this encounter (statuses as of 03/02/2024) Immunizations Name Administration Dates Next Due H1N1 [...] No 12/01/2023 Does the household have a [facility] source of income? (Household - for ages [...] AM EDT documented as of this encounter Last Filed Vital Signs Vital Sign Reading Time Taken Comments Blood Pressure 144/74 03/02/2024 12:31 PM EST Pulse 66 03/02/2024 12:31 PM EST Temperature 37 C (98.6 F) 03/02/2024 12:31 PM EST Respiratory Rate 18 03/02/2024 12:31 PM EST Oxygen Saturation 97% 03/02/2024 12:31 PM EST Inhaled Oxygen Concentration - - Weight - - Height - - Body Mass Index - - documented in this encounter Progress Notes * Christ Early RN - 03/02/2024 12:17 PM EST Current Concerns: Situation: Pt seen today by [facility] for routine follow-up visit. Background: PMH includes: COPD, CKD3, HTN, HLD, DM2, osteoporosis, CAD, AAA s/p repair Assessment: Pt states last evening went out for dinner and upon returning home, could not get up two small outdoor steps due to no railing, so pt crawled on outdoor cement walkway into home Pt does have very minimal scattered bruising to knees at time of visit Pt also reports on 02/28 he got down on knees to clean out pellet stove and was unable to get up Per pt, crawled all over house on hands and knees for 6-7 hours until he was able to find somethingto pull himself up from Since this incident pt reports 3/10 pain to BLE, specifically in thigh and hamstring region Pt states "It just feels like there is no strength in them" Pt has not taken anything for the pain Encouraged pt to take APAP PRN Pt daughter, Iman, reports another instance where pt had gotten down on knees and fell onto R side when trying to get up from knees Pt daughter reports that pt had significant bruising along ribs Per daughter, pt had some pain but resolved within a few days did not feel he needed imaging Discussed HH PT, OT with pt and Iman- both are agreeable Ordered pended to At time of visit pt reports 'It's been all right" in regards to breathing Pt denies SOB, VELEZ above baseline Pt currently using Advair 500/50 and Incruse daily Per pt when he completes the Advair 500/50 he will then start Advair 250/50 +3 pitting to bilateral ankles R>L at time of visit Pt typically wears boots, laced up tightly over ankles which pt feels help to reduce swelling Today pt wearing knee length tube socks and slippers Pt did have an order for Lasix 20 mg PRN, however pt did not take as he did not have swelling, SOB and script 06/2023 Sent to Yon Bell PA-C for one time refill as 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 Pulmonary: Effort: Pulmonary effort is normal. Breath sounds: Normal breath sounds. Abdominal: General: Bowel sounds are normal. Palpations: Abdomen is soft. Skin: General: Skin is warm and dry. Capillary Refill: Capillary refill takes 2 to 3 seconds. Neurological: General: No focal deficit present. Mental Status: He is alert. Mental status is at baseline. Psychiatric: Mood and Affect: Mood normal. Behavior: Behavior normal. Review of Systems: Review of Systems Constitutional: Negative. HENT: Negative. Respiratory: Negative. Cardiovascular: Positive for leg swelling (+3 pitting to BLE). Gastrointestinal: Negative. Genitourinary: Negative. Musculoskeletal: Positive for back pain and gait problem. Skin: Negative. Neurological: Negative for dizziness, speech difficulty, weakness, light- headedness and headaches. Psychiatric/Behavioral: Negative. Care Plan Goal Progress: GS - Patient/caregiver will verbalize an understanding of diagnosis, treatment and self management of chronic obstructive pulmonary disease (COPD) (Progressing) Start: 01/05/24 GS - Patient/caregiver will verbalize signs/symptoms of a COPD exacerbation. (Progressing) Start: 01/05/24 GS - Patient/caregiver will verbalize importance of chronic obstructive pulmonary disease (COPD) action plan. (Progressing) Start: 01/05/24 GS - Patient/caregiver will verbalize strategies to cope with COPD and its symptoms. (Progressing) Start: 01/05/24 GS - Patient/caregiver will verbalize benefit of exercise in the treatment of COPD. (Progressing) Start: 01/05/24 GS - Patient/caregiver will verbalize importance of nutrition in COPD. (Progressing) Start: 01/05/24 GS - Patient/caregiver will verbalize importance of influenza vaccination in COPD patients. (Progressing) Start: 01/05/24 GS - Patient/caregiver will verbalize importance of pneumonia vaccination in COPD patients. (Progressing) Start: 01/05/24 GS - Patient/caregiver will verbalize the impact of tobacco use/exposure on COPD. (Progressing) Start: 01/05/24 GS - Patient/caregiver will verbalize strategies for traveling with COPD. (Progressing) Start: 01/05/24 GS - Patient/caregiver will verbalize strategies to prevent COPD exacerbation. (Progressing) Start: 01/05/24 GS - Patient/caregiver will have chronic obstructive pulmonary disease exacerbation plan in place (Progressing) Start: 01/05/24 GS - Patient/caregiver will verbalize chronic obstructive pulmonary disease (COPD) action plan and activation triggers. (Progressing) Start: 01/05/24 GS - Patient/caregiver will verbalize how support groups can help patient and family cope with COPD. (Progressing) Start: 01/05/24 GS - Patient/caregiver will verbalize understanding of benefits of pulmonary rehabilitation in patients with COPD.. (Progressing) Start: 01/05/24 GS - Patient will have all recommended diagnostic testing for chronic obstructive pulmonary disease. (Progressing) Start: 01/05/24 Orders Placed: No orders of the defined types were placed in this encounter. Care Gaps: Care Gaps Care gaps closed this contact: Education;Plan of Care (POC);Medications (03/02/24 [facility]) Type of education: Clinical/disease (03/02/24 [facility]) Type of medication care gap: Medication adherence (03/02/24 [facility]) Type of plan of care (POC) care gap: Education and review of exacerbation plan (03/02/24 [facility]) documented in this encounter Plan of Treatment Upcoming Encounters Date Type Department Care Team (Late st Contact Info) Description 04/12/2024 10:30 AM EST Office Visit Cardiology, [facility] [address] [address] Shaquille Le DO [address] [address] 04/13/2024 10:00 AM EST Home Visit [facility] [address] [address] Christ Early, RN [address] [address] 06/22/2024 10:00 AM EDT Imaging Radiology [address] [id number] 06/22/2024 11:00 AM EDT Imaging Radiology [facility] [place] [facility] [address] [phone] 06/29/2024 10:30 AM EDT Office Visit Vascular Surgery, [facility] [address] [facility] [address] [address] Saul Crenshaw MD [address] [place] [address] 08/11/2024 10:20 AM EDT Office Visit [facility] [address] [facility] [address] [address] Gabi Vinson CRNP [address] [address] 11/15/2024 10:20 AM EDT Office Visit [facility] [address] [facility] [address] [address] Edgardo Sánchez DO [address] [facility] [address] [address] Scheduled Referrals Name Type Priority Associated Diagnoses Orde r Schedule HOME HEALTH REFERRAL OP Referral Within 10 days (routine) Age-related osteoporosis without current pathological fracture Ordered: 03/02/2024 Health Maintenance Due Date Last Done Comments Adult Wellness Visit 2002 *BISPHONATE OR OTHER ACCEPTABLE MEDICATION NEEDED FOR OSTEOPOROSIS (REFER TO SMARTSET #1146) 05/11/2020 Diabetic Foot Exam 06/04/2023 06/03/2022 COVID-19 Vaccine ( season) 2023 CKD PHOS USE SMARTSET 27152 01/15/202412/18, 06/03/2021, 04/24/2021, Additional history exists HbA1c 05/10/2024 11/11/2023, 12/18, 01/20/2022, Additional history exists TSH 11/10/2024 11/11/2023, 08/18, 01/14/2023, Additional history exists Albumin/Creatinine Ratio 11/15/2024 024, 01/16/2023, 06/03/2021, Additional history exists O2 ASSESSMENT COMPLETED IN PAST YEAR FOR COPD 11/26/2024 11/27/2023 CKD HGB USE SMARTSET 52912 11/27/202411/27, 11/27/2023, 11/16/2023, Additional history exists Depression Screening 11/30/2024 12/01/2023, 11/11/19 24 Diabetic Eye Exam 12/28/2024 12/29/2023, , 01/29/2000 DTap/Tdap Vaccines (3 - Td or Tdap) 06/09/2032 06/09/2022, 09/15/2011, 01/16/1994 VITAMIN D LEVEL ONCE IN A LIFETIME-USE SMARTSET# 52522 Completed 03/29/2012, 10/24/2008 Pneumococcal Vaccine: 50+ Years [...] this encounter Medical Devices Implanted Type Area Scarf And Anneal Operator Device Identifier Shelf Expiration Date Model / Serial / Lot Lens Intraoc 19.0 - [id number] - [id number] Implanted:Qty: 1 on 06/18/2021 by Gilmer Davalos MD at OR [facility] Right: Eye [employer] 02/15/2026 [id number] / [id number] Plug Vasc Ampl 12mm 9-Plug-012 - [id number] Implanted:Qty: 1 on 11/27/2023 by Saul Crenshaw MD at [place] [facility] Right: Iliac [employer] [id number] 2027 9-PLUG-01 [id number] 11mm X 10cm X 120cm Viabahn Endoprosthesis Stent Graft, With Heparin Bioactive Surface Implanted:Qty: 1 on 11/27/2023 by Saul Crenshaw MD at [place] [facility] Right: Iliac [employer] [id number] 07/19/2026 [id number] / [id number] / [id number] Graft Abdominal 32x14.3cib56hd Stent Control Trunk Ipsilateral System Leg Aortic Aneurysm Conformable Endoprosthesis With Active Excluder Aaa - [id number] Implanted:Qty: 1 on 11/27/2023 by Saul Crenshaw MD at [place] [facility] N/A: Aorta [employer] [id number] 07/14/2026 [id number] / / [id number] Grft Excldr 50iam92.5cm - [id number] Implanted:Qty: 1 on 11/27/2023 by Saul Crenshaw MD at [place] [facility] Left: Iliac [employer] 12/03/2025 [id number] / [id number] / [id number] Graft Excludr [id number] - [id number] Implanted:Qty: 1 on 11/27/2023 by Saul Crenshaw MD at [place] [facility] Right: Iliac [employer] [id number] 07/29/2026 [id number] / [id number] / [id number] documented as of this encounter Visit Diagnoses Diagnosis Infrarenal abdominal aortic aneurysm (AAA) without rupture (HCC)- Primary H/O endovascular stent graft for abdominal aortic aneurysm Blood vessel replaced by other means Coronary artery disease involving [facility] [place] coronary artery of [facility] heart without angina pectoris 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) Advanced care planning/counseling discussion Other specified counseling COPD, group A, by GOLD 2017 classification (HCC)- Primary Paroxysmal atrial fibrillation (HCC) Atrial fibrillation Type 2 diabetes mellitus with stage 3b chronic kidney disease, without long-term current use of insulin (HCC) 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) Coronary artery disease involving [facility] coronary artery of [facility] [place] heart without angina pectoris Age-related osteoporosis without current pathological fracture Senile osteoporosis Dyslipidemia, goal LDL below 100 Other and unspecified hyperlipidemia HFrEF (heart failure with reduced ejection fraction) (HCC) Disorder of parathyroid gland (HCC) Unspecified disorder of parathyroid gland Hypothyroidism, unspecified type Age-related osteoporosis without current pathological fracture- Primary Senile osteoporosis documented in this encounter Advance Directives * Full Code (Latest Code Status on File) Date Activated Date Inactivated Comments 11/27/2023 11:28 AM 11/28/2023 7:06 PM This orde r reflects the patients wishes and were consensually agreed upon. Question Answer Comments Discussion of Advance Direct matt occurred with: Not Discussed due to patient's condition Care Teams Cardiovascular Radiologic Technologist Relationship Specialty Start Date End Date Edgardo Sánchez DO [address] [place] [address] PCP - General Family Medicine 03/09/19 documented as of this encounter
--- OUTSIDE RECORDS SUMMARY | 2024-04-03 21:54 | External Medical Summary | Summary of Care ---
Author Name Unknown Organization [facility] Address [address] [facility] [place] [address] Phone [phone] Care Team Providers Care Animal Husbandry Teacher Name Role Phone Gonzalo Edgardo Ayana Primary Care Provider Encounter Details Date Type Department Care Team (Late st Contact Info) Description 03/02/2024 Refill [facility] [address] [place] [address] Christ Early, RN [address] [place] [address] Allergies Active Allergy Reactions Criticality Noted Date [...] :COPD, group A, by GOLD 2017 classification ([facility]),COPD exacerbation (HCC) Inhale 2 Puffs by mouth every 6 hours as needed for Shortness of Breath. 6.7 g 3 4 10:57 AM EST 12/29/19 24 Active Incruse Ellipta 62.5 MCG/ACT Inhalation Aerosol Powder Breath Activated (umeclidinium [place])Indications :COPD, group A, by GOLD 2017 classification ([facility]) Inhale 1 Puff by mouth in the morning. 90 Each 4 11:05 AM EST 01/08/20 24 Active Fluticasone-Salmete rol 250-50 MCG/ACT Inhalation Aerosol Powder Breath Activated (Advair Diskus)Indications: COPD, group A, by GOLD 2017 classification ([facility]),COPD exacerbation (HCC) Inhale 1 Puff by [...] by mouth as needed for Shortness of Breath (Take one tab as needed for SOB, swelling). 30 Tablet 11 03/02/19 25 Active documented as of this encounter (statuses as [...] Vitamin D Coronary artery disease invo lving [place] coronary artery of sw[place] heart without angina pectoris 05/09/2020 Overview (12/16/2023): [...] EST): Follows with cardiology S/p inferior wall [place] Assessment & Plan (12/16/2023 11:48 AM EDT): [...] know what this was for) History of HI (myocardial infarction) 07/11/2016 Abdominal aortic aneurysm (AAA) [...] No 12/01/2023 Does the household have a [employer] cent[employer] source of income? 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 Pt sees Cards 04/12 to establish with new provider- daughter is going to accompany to appt and discuss putting pt on a daily med instead as pt will not prompt himself to take the PRN lasix For time being daughter (who is RN) is going to monitor pt swelling and instruct when to take documented in this encounter Plan of Treatment Upcoming Encounters Date Type Department Care Team (Late st Contact Info) Description 04/12/2024 10:30 AM EST Office Visit Cardiology, [facility] [address] [place] [address] Shaquille Le DO [address] [place] [address] 04/13/2024 10:00 AM EST Home Visit [facility] [address] [place] [address] Christ Early RN [address] [place] [address] 06/22/2024 10:00 AM EDT Imaging Radiology [address] [place] [address] 06/22/2024 11:00 AM EDT Imaging Radiology [address] [place] [address] 06/29/2024 10:30 AM EDT Office Visit Vascular Surgery, [facility] [address] [place] [address] Saul Crenshaw MD [address] [place] [address] 08/11/2024 10:20 AM EDT Office Visit [facility] [address] [place] [address] Gabi Vinson CRNP [address] [place] [address] 11/15/2024 10:20 AM EDT Office Visit [facility] [address] [place] [address] Edgardo Sánchez DO [address] [place] [address] Health Maintenance Due Date Last Done Comments Adult Wellness Visit 2002 *BISPHONATE OR OTHER ACCEPTABLE MEDICATION NEEDED FOR OSTEOPOROSIS (REFER TO SMARTSET #1146) 05/11/2020 Diabetic Foot Exam 06/04/2023 06/03/2022 COVID-19 Vaccine ( season) 2023 CKD PHOS USE SMARTSET 06851 01/15/202412/18, 06/03/2021, 04/24/2021, Additional history exists HbA1c 05/10/2024 11/11/2023, 12/18, 01/20/2022, Additional history exists TSH 11/10/2024 11/11/2023, 07/3 02/2023, 01/14/2023, Additional history exists Albumin/Creatinine Ratio 11/15/2024 024, 01/16/2023, 06/03/2021, Additional history exists O2 ASSESSMENT COMPLETED IN PAST YEAR FOR COPD 11/26/2024 11/27/2023 CKD HGB USE SMARTSET 81848 11/27/202411/27, 11/27/2023, 11/16/2023, Additional history exists Depression Screening 11/30/2024 12/01/2023, 11/11/19 Diabetic Eye Exam 12/28/2024 12/29/2023, , 01/29/2000 DTap/Tdap Vaccines (3 - Td or Tdap) 06/09/2032 06/09/2022, 09/15/2011, 01/16/1994 VITAMIN D LEVEL ONCE IN A LIFETIME-USE SMARTSET# 98261 Completed 03/29/2012, 10/24/2008 Pneumococcal Vaccine: 50+ Years [...] this encounter Medical Devices Implanted Type Area Reheat Furnace Operator Device Identifier Shelf Expiration Date Model / Serial / Lot Lens Intraoc 19.0 - [id number] - [id number] Implanted:Qty: 1 on 06/18/2021 by Gilmer Davalos MD at OR [facility] Right: Eye [employer] 02/15/2026 [id number] / [id number] Plug Vasc Ampl 12mm 9-Plug-012 - [id number] Implanted:Qty: 1 on 11/27/2023 by Saul Crenshaw MD at OR [facility] Right: Iliac [employer] [id number] 2027 9-PLUG-01 [id number] 11mm X 10cm X 120cm Viabahn Endoprosthesis Stent Graft, With Heparin Bioactive Surface Implanted:Qty: 1 on 11/27/2023 by Saul Crenshaw MD at OR [facility] Right: Iliac [employer] [id number] 07/19/2026 [id number] / [id number] / [id number] Graft Abdominal 32x14.0olk57lh Stent Control Trunk Ipsilateral System Leg Aortic Aneurysm Conformable Endoprosthesis With Active Excluder Aaa - [id number] Implanted:Qty: 1 on 11/27/2023 by Saul Crenshaw MD at OR [facility] N/A: Aorta [employer] [id number] 07/14/2026 [id number] / / [id number] Grft Excldr 29exv74.5cm - [id number] Implanted:Qty: 1 on 11/27/2023 by Saul Crenshaw MD at OR [facility] Left: Iliac [employer] 12/03/2025 [id number] / [id number] / [id number] Graft Excludr 89mbu23n89ro - [id number] Implanted:Qty: 1 on 11/27/2023 by Saul Crenshaw MD at OR [facility] Right: Iliac [employer] [id number] 07/29/2026 [id number] / [id number] / [id number] documented as of this encounter Advance Directives * Full Code (Latest Code Status on File) Date Activated Date Inactivated Comments 11/27/2023 11:28 AM 11/28/2023 7:06 PM This orde r reflects the patients wishes and were consensually agreed upon. Question Answer Comments Discussion of Advance Direct matt occurred with: Not Discussed due to patient's condition Care Teams Animal Husbandry Teacher Relationship Specialty Start Date End Date Edgardo Sánchez DO [address] [place] [address] PCP - General Family Medicine 03/09/19 documented as of this encounter
--- OUTSIDE RECORDS SUMMARY | 2024-04-03 21:54 | External Medical Summary | Summary of Care ---
Author Name Unknown Organization [facility] Address [address] [place] [address] Phone [phone] Care Team Providers Care Blower Insulator Name Role Phone Edgardo Sánchez Primary Care Provider Encounter Details Date Type Department Care Team (Late st Contact Info) Description 03/07/2024 Population Health External Data Unspecified Department Allergies Active Allergy Reactions Criticality Noted Date [...] DAY OR OTHER MEDS 100 Tablet 3 12/30/202 4 7:55 AM EST 03/12/19 24 025 [...] :COPD, group A, by GOLD 2017 classification ([facility]),COPD exacerbation ([facility]) Inhale 2 Puffs by mouth every 6 hours as needed for Shortness of Breath. 6.7 g 3 4 10:57 AM EST 12/29/19 24 Active Incruse Ellipta 62.5 MCG/ACT Inhalation Aerosol Powder Breath Activated (umeclidinium [place])Indications :COPD, group A, by GOLD 2017 classification ([facility]) Inhale 1 Puff by mouth in the morning. 90 Each 4 11:05 AM EST 01/08/20 24 Active Fluticasone-Salmete rol 250-50 MCG/ACT Inhalation Aerosol Powder Breath Activated (Advair Diskus)Indications: COPD, group A, by GOLD 2017 classification ([facility]),COPD exacerbation ([facility]) Inhale 1 Puff by mouth in the [...] 5 6:30 PM EST 03/02/19 25 Active documented as of this [...] carotid artery stenosis 0 05/09/2020 Age-related osteoporosis rosa whyte current pathological fracture 05/09/2020 Assessment & Plan (02/21/2024 10:02 PM EST): Vitamin D Coronary artery disease invo lving [place] coronary artery of [place] heart without angina pectoris 05/09/2020 Overview (12/16/2023): [...] EST): Follows with cardiology S/p inferior wall CT Assessment & Plan (12/16/2023 11:48 AM EDT): [...] know what this was for) History of CT (myocardial infarction) 07/11/2016 Abdominal aortic aneurysm (AAA) [...] Immunizations Name Administration Dates Next Due H1N1 2008 Influenza, IM 01/16/2009 Pneumococcal Conjugate Vacc, 13 [...] 12/01/2023 Does the household have a re lar source of income? (Household - for ages [...] AM EDT documented as of this encounter Plan of Treatment Upcoming Encounters Date Type Department Care Team (Late st Contact Info) Description 04/12/2024 10:30 AM EST Office Visit Cardiology, [facility] [address] [place] [address] Shaquille Le, [address] [place] [address] 04/13/2024 10:00 AM EST [facility] [address] [place] [address] Christ Early, RN [address] [place] [address] 06/22/2024 10:00 AM EDT Imaging Radiology [address] [place] [address] 06/22/2024 11:00 AM EDT Imaging Radiology [facility] [place] [address] [place] [phone] 06/29/2024 10:30 AM EDT Office Visit Vascular Surgery, [facility] [address] [place] [address] Saul Crenshaw MD [address] [place] [address] 08/11/2024 10:20 AM EDT Office Visit Family Practice [facility] [address] [place] [address] Gabi Vinson CRNP [address] [place] [address] 11/15/2024 10:20 AM EDT Office Visit Family Practice [facility] [address] [place] [address] Edgardo Sánchez DO [address] [place] [address] Health Maintenance Due Date Last Done Comments Adult Wellness Visit 2002 *BISPHONATE OR OTHER ACCEPTABLE MEDICATION NEEDED FOR OSTEOPOROSIS (REFER TO SMARTSET #1146) 05/11/2020 Diabetic Foot Exam 06/04/2023 06/03/2022 COVID-19 Vaccine ( season) 2023 CKD PHOS USE SMARTSET 92376 01/15/202412/18, 06/03/2021, 04/24/2021, Additional history exists HbA1c 05/10/2024 11/11/2023, 12/18, 01/20/2022, Additional history exists TSH 11/10/2024 11/11/2023, 08/18, 01/14/2023, Additional history exists Albumin/Creatinine Ratio 11/15/2024 024, 01/16/2023, 06/03/2021, Additional history exists O2 ASSESSMENT COMPLETED IN PAST YEAR FOR COPD 11/26/2024 11/27/2023 CKD HGB USE SMARTSET 47727 11/27/202411/27, 11/27/2023, 11/16/2023, Additional history exists Depression Screening 11/30/2024 12/01/2023, 11/11/19 24 Diabetic Eye Exam 12/28/2024 12/29/2023, , 01/29/2000 DTap/Tdap Vaccines (3 - Td or Tdap) 06/09/2032 06/09/2022, 09/15/2011, 01/16/1994 VITAMIN D LEVEL ONCE IN A LIFETIME-USE SMARTSET# 95267 Completed 03/29/2012, 10/24/2008 Pneumococcal Vaccine: 50+ Years [...] this encounter Medical Devices Implanted Type Area Private Sector Executive Device Identifier Shelf Expiration Date Model / Serial / Lot Lens Intraoc 19.0 - [id number] - [id number] Implanted:Qty: 1 on 06/18/2021 by Gilmer Davalos MD at OR [facility] Right: Eye [employer] 02/15/2026 [id number] / [id number] Plug Vasc Ampl 12mm 9-Plug-012 - [id number] Implanted:Qty: 1 on 11/27/2023 by Saul Crenshaw [place] [facility] [place] Right: Iliac [employer] [id number] 2027 9-PLUG-01 / [id number] 11mm X 10cm X 120cm Viabahn Endoprosthesis Stent Graft, With Heparin Bioactive Surface Implanted:Qty: 1 on 11/27/2023 by Saul Crenshaw MD [place] [facility] Right: Iliac [employer] [id number] 07/19/2026 [id number] / [id number] / [id number] Graft Abdominal 32x14.7wzg62pr Stent Control Trunk Ipsilateral System Leg Aortic Aneurysm Conformable Endoprosthesis With Active Excluder Aaa - [id number] Implanted:Qty: 1 on 11/27/2023 by Saul Crenshaw MD [place] [facility] [place]/A: Aorta [employer] [id number] 07/14/2026 [id number] / / [id number] Grft Excldr 06rum40.5cm - [id number] Implanted:Qty: 1 on 11/27/2023 by Saul Crenshaw MD [place] [facility] Left: Iliac [employer] 12/03/2025 [id number] / [id number] / [id number] Graft Excludr 30dtg68s05hp - [id number] Implanted:Qty: 1 on 11/27/2023 by Saul Crenshaw MD [place] [facility] [place] Right: Iliac [employer] [id number] 07/29/2026 [id number] / [id number] / [id number] documented as of this encounter Advance Directives * Full Code (Latest Code Status on File) Date Activated Date Inactivated Comments 11/27/2023 11:28 AM 11/28/2023 7:06 PM This orde r reflects the patients wishes and were consensually agreed upon. Question Answer Comments Discussion of Advance Direct matt occurred with: Not Discussed due to patient's condition Care Teams Blower Insulator Relationship Specialty Start Date End Date Edgardo Sánchez DO [address] [place] [address] [place] [address] PCP - General Family Medicine 03/09/19 documented as of this encounter
--- OUTSIDE RECORDS SUMMARY | 2024-04-03 21:54 | External Medical Summary | Summary of Care ---
Author Name Unknown Organization [facility] Address [address] [place] [address] Phone [phone] Care Team Providers Care Fullerette Name Role Phone Edgardo Sánchez Primary Care Provider Encounter Details Date Type Department Care Team (Late st Contact Info) Description 03/29/2024 Population Health External Data Unspecified Department Allergies Active Allergy Reactions Criticality Noted Date Comments Jason Inhibitors Edema face/lips/tongue High 4 angioedema Latex 07/21/2016 Pt states he breaks out from this documented as of this encounter (statuses as of 03/30/2024) Medications ASPIRIN 81 MG PO TABSIndications:Cor onary [...] A, by GOLD 2017 classification ([facility]),COPD exacerbation (HCC) Inhale 2 Puffs by mouth every 6 hours as needed for Shortness of Breath. 6.7 g 3 4 10:57 AM EST 12/29/19 24 Active Fluticasone-Salmete rol 250-50 MCG/ACT Inhalation Aerosol Powder Breath Activated (Advair Diskus)Indications: COPD, group A, by GOLD 2017 classification ([facility]),COPD exacerbation (HCC) Inhale 1 Puff by [...] MCG/ACT Inhalation Aerosol Powder Breath Activated (umeclidinium [place])Indications :COPD, group A, by GOLD 2017 classification ([facility]) Inhale 1 Puff by mouth in the morning. 90 Each 5 8:03 AM EST 03/07/19 25 Active documented as of this encounter (statuses as of 03/30/2024) Active Problems Problem Noted Date Diagnosed Date [...] Vitamin D Coronary artery disease invo lving [place] coronary artery of [place] heart without angina pectoris 05/09/2020 Overview (12/16/2023): [...] EST): Follows with cardiology S/p inferior wall [place] Assessment & Plan (12/16/2023 11:48 AM EDT): [...] know what this was for) History of NV (myocardial infarction) 07/11/2016 Abdominal aortic aneurysm (AAA) [...] as of this encounter (statuses as of 03/30/2024) Resolved Problems Problem Noted Date Diagnosed Date [...] as of this encounter (statuses as of 03/30/2024) Immunizations Name Administration Dates Next Due H1N1 [...] ages 0-17 years) Not on file 12/01/2023 Food Insecurity Answer Date Recorded Within the past 12 months, y ou worried that your food would run out before you got the money to buy more. Never true 12/01/19 24 Within the past 12 months, t he food you bought just didn't last and you didn't have money to get more. Never true 12/01/2023 Do you need food for this week? No 12/01/2023 Sex and Gender Information Value Date [...] 04/12/2024 10:30 AM EST Office Visit Cardiology, [facility] [address] [address] Shaquille Le, DO [address] [place] [address] 04/13/2024 10:00 AM EST [facility] Visit [facility] [address] [place] [address] Christ Early, RN [address] [place] [address] 06/22/2024 10:00 AM EDT Imaging Radiology [address] [place] [phone] 06/22/2024 11:00 AM EDT Imaging Radiology [address], [place] [address] [place] [phone] 06/29/2024 10:30 AM EDT Office Visit Vascular Surgery, [facility] [address] [place] [address] Saul Crenshaw MD [address] [place] [address] 08/11/2024 10:20 AM EDT Office Visit Family Practice [facility] [address] [facility] [facility] [place] [address] Gabi Vinson CRNP [address] [place] [address] 11/15/2024 10:20 AM EDT Office Visit [facility] [address] [place] [address] Edgardo Sánchez DO [address] [place] [address] Health Maintenance Due Date Last Done Comments Adult Wellness Visit 2002 *BISPHONATE OR OTHER ACCEPTABLE MEDICATION NEEDED FOR OSTEOPOROSIS (REFER TO SMARTSET #1146) 05/11/2020 Diabetic Foot Exam 06/04/2023 06/03/2022 COVID-19 Vaccine ( season) 2023 CKD PHOS USE SMARTSET 42201 01/15/202412/18, 06/03/2021, 04/24/2021, Additional history exists HbA1c 05/10/2024 11/11/2023, 12/18, 01/20/2022, Additional history exists TSH 11/10/2024 11/11/2023, /02/2023, 01/14/2023, Additional history exists Albumin/Creatinine Ratio 11/15/2024 024, 01/16/2023, 06/03/2021, Additional history exists O2 ASSESSMENT COMPLETED IN PAST YEAR FOR COPD 11/26/2024 11/27/2023 CKD HGB USE SMARTSET 13133 11/27/202411/27, 11/27/2023, 11/16/2023, Additional history exists Depression Screening 11/30/2024 12/01/2023, 11/11/19 Diabetic Eye Exam 12/28/2024 12/29/2023, , 01/29/2000 DTap/Tdap Vaccines (3 - Td or Tdap) 06/09/2032 06/09/2022, 09/15/2011, 01/16/1994 VITAMIN D LEVEL ONCE IN A LIFETIME-USE SMARTSET# 47367 Completed 03/29/2012, 10/24/2008 Pneumococcal Vaccine: 50+ Years [...] this encounter Medical Devices Implanted Type Area Feed Mill Operator Device Identifier Shelf Expiration Date Model / Serial / Lot Lens Intraoc 19.0 - [id number] - [id number] Implanted:Qty: 1 on 06/18/2021 by Gilmer Davalos MD at OR [facility] Right: Eye [employer] 02/15/2026 [id number] / [id number] / [id number] Plug Vasc Ampl 12mm 9-Plug-012 - [id number] Implanted:Qty: 1 on 11/27/2023 by Saul Crenshaw MD at OR [facility] Right: Iliac [employer] [id number] 2027 9-PLUG-01 [id number] 11mm X 10cm X 120cm Viabahn Endoprosthesis Stent Graft, With Heparin Bioactive Surface Implanted:Qty: 1 on 11/27/2023 by Saul Crenshaw MD at OR [facility] Right: Iliac [employer] [id number] 07/19/2026 [id number] / [id number] / [id number] Graft Abdominal 32x14.7sqg78eq Stent Control Trunk Ipsilateral System Leg Aortic Aneurysm Conformable Endoprosthesis With Active Excluder Aaa - [id number] Implanted:Qty: 1 on 11/27/2023 by Saul Crenshaw MD at OR [facility] N/A: Aorta [employer] [id number] 07/14/2026 [id number] / / [id number] Grft Excldr 32yyw83.5cm - [id number] Implanted:Qty: 1 on 11/27/2023 by Saul Crenshaw MD at OR [facility] Left: Iliac [employer] 12/03/2025 [id number] / [id number] / [id number] Graft Excludr 06tzt21y18vz - [id number] Implanted:Qty: 1 on 11/27/2023 by Saul Crenshaw MD at OR [facility] Right: Iliac [employer] [id number] 07/29/2026 [id number] / [id number] / [id number] documented as of this encounter Advance Directives * Full Code (Latest Code Status on File) Date Activated Date Inactivated Comments 11/27/2023 11:28 AM 11/28/2023 7:06 PM This orde r reflects the patients wishes and were consensually agreed upon. Question Answer Comments Discussion of Advance Direct matt occurred with: Not Discussed due to patient's condition Care Teams Fullerette Relationship Specialty Start Date End Date Edgardo Sánchez DO [address] [place] [address] PCP - General Family Medicine 03/09/19 documented as of this encounter
--- OUTSIDE RECORDS SUMMARY | 2024-04-03 21:55 | External Medical Summary | Summary of Care ---
Author Name Unknown Organization [facility] Address [address] [place] [address] Phone [phone] Care Team Providers Care Chaser Helper Name Role Phone Edgardo Sánchez Primary Care Provider Encounter Details Date Type Department Care Team (Late st Contact Info) Description 02/18/2024 Population Health External Data Unspecified Department Allergies Active Allergy Reactions Criticality Noted Date Comments Jason Inhibitors Edema face/lips/tongue High 4 angioedema Latex 07/21/2016 Pt states he breaks out from this documented as of this encounter (statuses as of 02/23/2024) Medications ASPIRIN 81 MG PO TABSIndications:Cor onary [...] g 5 3 5:05 PM EST 01/10/20 Active Additional Information Patient not taking.Reported on 01/05/2024 Levothyroxine Sodium 100 MCG Oral Tablet (Levoxyl)Indication [...] A, by GOLD 2017 classification ([facility]),COPD exacerbation (HCC) Inhale 2 Puffs by mouth every 6 hours as needed for Shortness of Breath. 6.7 g 3 4 10:57 AM EST 12/29/19 24 Active Incruse Ellipta 62.5 MCG/ACT Inhalation Aerosol Powder Breath Activated (umeclidinium [place])Indications :COPD, group A, by GOLD 2017 classification ([facility]) Inhale 1 Puff by mouth in the morning. 90 Each 4 11:05 AM EST 01/08/20 24 Active Fluticasone-[place] rol 250-50 MCG/ACT Inhalation Aerosol Powder Breath Activated (Advair Diskus)Indications: COPD, group A, by GOLD 2017 classification ([facility]),COPD exacerbation ([facility]) Inhale 1 Puff by mouth in the morning and 1 Puff before bedtime. 60 Each 12 4 4:19 PM EST 01/13/20 24 Active documented as of this encounter (statuses as of 02/23/2024) Active Problems Problem Noted Date Diagnosed Date [...] Vitamin D Coronary artery disease invo lving [place] coronary artery of [place] heart without angina pectoris 05/09/2020 Overview (12/16/2023): [...] EST): Follows with cardiology S/p inferior wall [place] Assessment & Plan (12/16/2023 11:48 AM EDT): [...] know what this was for) History of [place] (myocardial infarction) 07/11/2016 Abdominal aortic aneurysm (AAA) [...] as of this encounter (statuses as of 02/23/2024) Resolved Problems Problem Noted Date Diagnosed Date [...] as of this encounter (statuses as of 02/23/2024) Immunizations Name Administration Dates Next Due H1N1 [...] Description 03/02/2024 12:30 PM EST Home Visit [facility] [address] [address] Christ Early, RN [address] [address] 04/12/2024 10:30 AM EST Office Visit Cardiology, [facility] [address] [address] Shaquille Le, [address] [address] 06/22/2024 10:00 AM EDT Imaging Radiology [facility] [address] [address] 06/22/2024 11:00 AM EDT Imaging Radiology [address], [place] [address] [address] 06/29/2024 10:30 AM EDT Office Visit Vascular Surgery, [facility] [address] [address] Saul Crenshaw MD [address] [place], [place] [address] 08/11/2024 10:20 AM EDT Office Visit [facility] [address] [place] [address] Gabi Vinson CRNP [address] [place] [address] 11/15/2024 10:20 AM EDT Office Visit [facility] [address] [place] [address] Edgardo Sánchez DO [address] [place] [address] Health Maintenance Due Date Last Done Comments Adult Wellness Visit 2002 *BISPHONATE OR OTHER ACCEPTABLE MEDICATION NEEDED FOR OSTEOPOROSIS (REFER TO SMARTSET #1146) 05/11/2020 Diabetic Foot Exam 06/04/2023 06/03/2022 COVID-19 Vaccine ( season) 2023 CKD PHOS USE SMARTSET 72110 01/15/202412/18, 06/03/2021, 04/24/2021, Additional history exists HbA1c 05/10/2024 11/11/2023, 12/18, 01/20/2022, Additional history exists TSH 11/10/2024 11/11/2023, 08/18, 01/14/2023, Additional history exists Albumin/Creatinine Ratio 11/15/2024 024, 01/16/2023, 06/03/2021, Additional history exists O2 ASSESSMENT COMPLETED IN PAST YEAR FOR COPD 11/26/2024 11/27/2023 CKD HGB USE SMARTSET 52260 11/27/202411/27, 11/27/2023, 11/16/2023, Additional history exists Depression Screening 11/30/2024 12/01/2023, 11/11/19 Diabetic Eye Exam 12/28/2024 12/29/2023, , 01/29/2000 DTap/Tdap Vaccines (3 - Td or Tdap) 06/09/2032 06/09/2022, 09/15/2011, 01/16/1994 VITAMIN D LEVEL ONCE IN A LIFETIME-USE SMARTSET# 48776 Completed 03/29/2012, 10/24/2008 Pneumococcal Vaccine: 50+ Years [...] this encounter Medical Devices Implanted Type Area State Tested Nursing Assistant Device Identifier Shelf Expiration Date Model / Serial / Lot Lens Intraoc 19.0 - [id number] - [id number] Implanted:Qty: 1 on 06/18/2021 by Gilmer Davalos MD at OR [facility] Right: Eye [employer] 02/15/2026 [id number] / [id number] Plug Vasc Ampl 12mm 9-Plug-012 - [id number] Implanted:Qty: 1 on 11/27/2023 by Saul Crenshaw MD [place] [facility] Right: Iliac [employer] [id number] 2027 9-PLUG-01 [id number] 11mm X 10cm X 120cm Viabahn Endoprosthesis Stent Graft, With Heparin Bioactive Surface Implanted:Qty: 1 on 11/27/2023 by Saul Crenshaw MD at [place] [facility] Right: Iliac [employer] [id number] 07/19/2026 [id number] / [id number] / [id number] Graft Abdominal 32x14.5udy64ae Stent Control Trunk Ipsilateral System Leg Aortic Aneurysm Conformable Endoprosthesis With Active Excluder Aaa - [id number] Implanted:Qty: 1 on 11/27/2023 by Saul Crenshaw MD at OR [facility] N/A: Aorta [employer] [id number] 07/14/2026 [id number] / / [id number] Grft Excldr 83arp77.5cm - [id number] Implanted:Qty: 1 on 11/27/2023 by Saul Crenshaw MD at [place] [facility] Left: Iliac [employer] 12/03/2025 [id number] / [id number] / [id number] Graft Excludr [id number] - [id number] Implanted:Qty: 1 on 11/27/2023 by Saul Crenshaw MD at [place] [facility] Right: Iliac [employer] [id number] 07/29/2026 [id number] / [id number] / [id number] documented as of this encounter Advance Directives * Full Code (Latest Code Status on File) Date Activated Date Inactivated Comments 11/27/2023 11:28 AM 11/28/2023 7:06 PM This orde r reflects the patients wishes and were consensually agreed upon. Question Answer Comments Discussion of Advance Direct matt occurred with: Not Discussed due to patient's condition Care Teams Chaser Helper Relationship Specialty Start Date End Date Edgardo Sánchez DO [address] [facility] [place] [address] PCP - General Family Medicine 03/09/19 documented as of this encounter
--- OUTSIDE RECORDS SUMMARY | 2024-04-03 21:55 | External Medical Summary | Summary of Care ---
Author Name Unknown Organization [facility] Address [address] [place] [address] Phone [phone] Care Team Providers Care Graphic Coordinator Name Role Phone Edgardo Sánchez Primary Care Provider Reason for Visit * Reason Onset Date Comments Appointment 01/01/2024 Encounter Details Date Type Department Care Team (Late st Contact Info) Description 01/01/2024 Telephone [facility] [place] [address] [place] [id number] Valdes, William, JEANNETTE [address], [place] [id number] Appointment Allergies Active Allergy Reactions Criticality Noted Date Comments Jason Inhibitors Edema face/lips/tongue High 4 angioedema Latex 07/21/2016 Pt states he breaks out from this documented as of this encounter (statuses as of 01/01/2024) Medications ASPIRIN 81 MG PO TABSIndications:Cor onary [...] Active Additional Information Patient not taking.Reported on 12/30/2023 Levothyroxine Sodium 100 MCG Oral Tablet (Levoxyl)Indication s:Hypothyroidism due to acquired atrophy of thyroid TAKE ONE TABLET BY MOUTH DAILY AT LEAST 30 MINUTES PRIOR TO FIRST MEAL OF THE DAY OR OTHER MEDS 100 Tablet 3 4 10:56 AM EDT 03/12/19 24 025 Active Atorvastatin Calcium 80 MG Oral Tablet (Lipitor)Indication s:Dyslipidemia, goal LDL below 100 TAKE ONE TABLET BY MOUTH EVERY MORNING 100 Tablet 3 4 1:07 PM EDT 03/16/19 24 Active Amiodarone HCl 200 MG Oral Tablet (Cordarone)Indicati ons:Paroxysmal atrial fibrillation (HCC) TAKE ONE TABLET BY MOUTH EVERY MORNING 100 Tablet 3 4 3:01 PM EDT 07/21/19 24 025 Active oxyCODONE HCl 5 MG Oral Tablet (Oxy IR) Take 1 Tablet by mouth every 4 hours as needed for severe pain for up to 10 doses. 10 Tablet 4 2:18 PM EDT 11/28/19 24 Active Additional Information Patient not taking.Reported on 12/30/2023 Clopidogrel Bisulfate 75 MG Oral Tablet (pLAVix) Take 1 Tablet by mouth in the morning. 90 Tablet 1 4 2:18 PM EDT 11/29/19 24 Active Tamsulosin HCl 0.4 MG Oral Capsule (Flomax) Take 1 Capsule by mouth in the morning. 30 Capsule 4 2:18 PM EDT 11/29/19 24 Active Albuterol Sulfate HFA 108 (90 Base) MCG/ACT Inhalation Aerosol SolutionIndications :COPD, group A, by GOLD 2017 classification ([facility]),COPD exacerbation (HCC) Inhale 2 Puffs by mouth every 6 hours as needed for Shortness of Breath. 6.7 g 3 4 10:57 AM EST 12/29/19 24 Active Fluticasone-Umeclid in-Vilant 100-62.5-25 MCG/ACT Aerosol Powder Breath Activated (Trelegy Ellipta)Indications :COPD, group A, by GOLD 2017 classification ([facility]),COPD exacerbation (HCC) Inhale 1 Puff by mouth in the morning. 180 Blister Dosing Unit 3 12/29/19 Active documented as of this encounter (statuses as of 01/01/2024) Active Problems Problem Noted Date Diagnosed Date H/O endovascular stent graft for abdominal aorti c aneurysm 12/09/2023 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 05/25/2023 Overview: Per CKD protocol Assessment & Plan (12/16/2023 11:49 AM EDT): Current CKD Stage: Stage III "RED FLAG" symptoms: NO IDENTIFIED SYMPTOMS CKD Complications: CAD HTN Additional Comments Recently d/c lisinopril due to angioedema BP stable today Chronic kidney disease, stage 3b 05/25/2023 Overview: Per CKD protocol Type 2 diabetes mellitus wit h stage 3b chronic kidney disease 05/25/2023 Overview: Per CKD protocol Infrarenal abdominal aortic aneurysm (AAA) witho ut [...] osteoporosis wit hout current pathological fracture 05/09/2020 Coronary artery disease invo lving [place] coronary artery of [place] heart without angina pectoris 05/09/2020 Overview (12/16/2023): Nuclear stress 09/04/2023: Interpretation Summary The LV ejection fraction is calculated at 59%. This pharmacologic nuclear stress trest reveals an infarct of the inferior and inferior lateral myocardium and no active ischemia. These findings are most consistent with the Right Coronary or Left Circumflex arteries. No prior studies for comparison. Assessment & Plan (12/16/2023 11:48 AM EDT): Continue statin COPD, group A, by GOLD 2017 classification 11/27 Overview: Per COPD GOLD Classification History of [place] (myocardial infarction) 07/11/2016 Abdominal aortic aneurysm (AAA) without rupture 05/09/2016 Paroxysmal atrial fibrillation 05/09/2016 Beta-blockers contraindicated 11/13/2011 HTN, goal below 140/90 09/15/2011 Hypothyroidism due to medication 05/29/2010 DYSLIPIDEMIA, GOAL LDL BELOW 100 01/25/2009 Overview (01/25/2009): Per Lipid Taxonomy. CHR ISCHEMIC HRT DIS NOS 03/31/2002 Overview (03/17/2012): Vivek documented as of this encounter (statuses as of 01/01/2024) Resolved Problems Problem Noted Date Diagnosed Date [...] #[address] Patel 03/31/2011 Carotid stenosis, non-symptomatic 08/03/2008 11/11/2021 Overview (08/03/2008): [...] as of this encounter (statuses as of 01/01/2024) Immunizations Name Administration Dates Next Due H1N1 [...] encounter Miscellaneous Notes * Telephone Encounter - William Valdes OSA - 01/01/2024 1:42 PM EST TT received from management () regarding a template change. [facility] was directed to move appt's on [facility] schedule from Thursday to Thursday. Pt agreeable. documented in this encounter Plan of Treatment Upcoming Encounters Date Type Department Care Team (Late st Contact Info) Description 01/05/2024 2:30 PM EST [facility] [address] [address] Christ Early, DIANNA [address] [address] [address] 02/04/2024 9:00 AM EST [facility] Visit [facility], [facility] [address] [place] [address] Yon Bell PA-C [address] [place] [address] 04/12/2024 10:30 AM EST Office Visit Cardiology, [facility] [address] [place] [address] Shaquille Le, DO [address] [place] [address] 06/22/2024 10:00 AM EDT Imaging Radiology [address] 132 [facility] [place] [address] 06/22/2024 11:00 AM EDT Imaging Radiology [address] [facility] [place] [address] 06/29/2024 10:30 AM EDT Office Visit Vascular Surgery, [facility] 132 [facility] [place] [address] Saul Crenshaw MD [address] [place] [address] 08/11/2024 10:20 AM EDT [facility] Visit [facility] [place] [address] Gabi Vinson CRNP [address] [place] [address] 11/15/2024 10:20 AM EDT Office Visit [facility] [address] [place] [address] Edgardo Sánchez, [address] [place] [address] Health Maintenance Due Date Last Done Comments Adult Wellness Visit 2002 *BISPHONATE OR OTHER ACCEPTABLE MEDICATION NEEDED FOR OSTEOPOROSIS (REFER TO SMARTSET #1146) 05/11/2020 Diabetic Foot Exam 06/04/2023 06/03/2022 COVID-19 Vaccine ( season) 2023 CKD PHOS USE SMARTSET 48445 01/15/202412/18, 06/03/2021, 04/24/2021, Additional history exists HbA1c 05/10/2024 11/11/2023, 12/18, 01/20/2022, Additional history exists TSH 11/10/2024 11/11/2023, 08/18, 01/14/2023, Additional history exists Albumin/Creatinine Ratio 11/15/2024 024, 01/16/2023, 06/03/2021, Additional history exists O2 ASSESSMENT COMPLETED IN PAST YEAR FOR COPD 11/26/2024 11/27/2023 CKD HGB USE SMARTSET 03280 11/27/202411/27, 11/27/2023, 11/16/2023, Additional history exists Depression Screening 11/30/2024 12/01/2023, 11/11/19 24 Diabetic Eye Exam 12/28/2024 12/29/2023, , 01/29/2000 DTap/Tdap Vaccines (3 - Td or Tdap) 06/09/2032 06/09/2022, 09/15/2011, 01/16/1994 VITAMIN D LEVEL ONCE IN A LIFETIME-USE SMARTSET# 37031 Completed 03/29/2012, 10/24/2008 Pneumococcal Vaccine: 65+ Years Completed 03/28/2014, 02/03/2005, 01/25/1997, Additional history [...] this encounter Medical Devices Implanted Type Area Manager Of It Device Identifier Shelf Expiration Date Model / Serial / Lot Lens Intraoc 19.0 - [id number] - [id number] Implanted:Qty: 1 on 06/18/2021 by Gilmer Davalos MD at OR [facility] Right: Eye [employer] 02/15/2026 [id number] / [id number] Plug Vasc Ampl 12mm 9-Plug-012 - [id number] Implanted:Qty: 1 on 11/27/2023 by Saul Crenshaw MD at OR [facility] Right: Iliac [employer] [id number] 2027 9-PLUG-01 [id number] 11mm X 10cm X 120cm Viabahn Endoprosthesis Stent Graft, With Heparin Bioactive Surface Implanted:Qty: 1 on 11/27/2023 by Saul Crenshaw MD at OR [facility] Right: Iliac [employer] [id number] 07/19/2026 [id number] / [id number] / [id number] Graft Abdominal 32x14.3pcm26mm Stent Control Trunk Ipsilateral System Leg Aortic Aneurysm Conformable Endoprosthesis With Active Excluder Aaa - [id number] Implanted:Qty: 1 on 11/27/2023 by Saul Crenshaw MD at OR [facility] N/A: Aorta [employer] [id number] 07/14/2026 [id number] / / [id number] Grft Excldr 97kvw18.5cm - [id number] Implanted:Qty: 1 on 11/27/2023 by Saul Crenshaw MD at OR [facility] Left: Iliac [employer] 12/03/2025 [id number] / [id number] / [id number] Graft Excludr [id number] - [id number] Implanted:Qty: 1 on 11/27/2023 by Saul Crenshaw MD at OR [facility] Right: Iliac [employer] [id number] 07/29/2026 [id number] / [id number] / [id number] documented as of this encounter Advance Directives * Full Code (Latest Code Status on File) Date Activated Date Inactivated Comments 11/27/2023 11:28 AM 11/28/2023 7:06 PM This orde r reflects the patients wishes and were consensually agreed upon. Question Answer Comments Discussion of Advance Direct amtt occurred with: Not Discussed due to patient's condition Care Teams Graphic Coordinator Relationship Specialty Start Date End Date Edgardo Sánchez DO [address] [place] [address] PCP - General Family Medicine 03/09/19 documented as of this encounter
--- OUTSIDE RECORDS SUMMARY | 2024-04-03 21:55 | External Medical Summary | Summary of Care ---
Author Name Unknown Organization [facility] Address [address] [place] [address] Phone [phone] Care Team Providers Care Touch Up Carver Name Role Phone Edgardo Sánchez DO Primary Care Provider Reason for Visit * Reason Comments Medication Refill Encounter Details Date Type Department Care Team (Late st Contact Info) Description 01/08/2024 [facility] [address] [place] [address] Edgardo Sánchez DO [address] [place] [address] COPD, group A, by GOLD 2017 classification (HCC) Allergies Active Allergy Reactions Criticality Noted Date Comments Jason Inhibitors Edema face/lips/tongue High 4 angioedema Latex 07/21/2016 Pt states he breaks out from this documented as of this encounter (statuses as of 01/08/2024) Medications ASPIRIN 81 MG PO TABSIndications:Cor onary [...] Additional Information Patient not taking.Reported on 01/05/2024 Clopidogrel Bisulfate 75 MG Oral Tablet (pLAVix) Take 1 Tablet by mouth in the morning. 90 Tablet 1 4 2:18 PM EDT 11/29/19 24 Active Additional Information Patient not taking.Reported on 01/05/2024 Tamsulosin HCl 0.4 MG Oral Capsule (Flomax) Take 1 Capsule by mouth in the morning. 30 Capsule 4 2:18 PM EDT 11/29/19 24 Active Additional Information Patient not taking.Reported on 01/05/2024 Albuterol Sulfate HFA 108 (90 Base) MCG/ACT Inhalation Aerosol SolutionIndications :COPD, group A, by GOLD 2017 classification ([facility]),COPD exacerbation ([facility]) Inhale 2 Puffs by mouth every 6 hours as needed for Shortness of Breath. 6.7 g 3 4 10:57 AM EST 12/29/19 24 Active Fluticasone-Umeclid in-Vilant 100-62.5-25 MCG/ACT Aerosol Powder Breath Activated (Trelegy Ellipta)Indications :COPD, group A, by GOLD 2017 classification ([facility]),COPD exacerbation ([facility]) Inhale 1 Puff by mouth in the morning. 180 Blister Dosing Unit 3 12/29/19 24 Active Incruse Ellipta 62.5 MCG/ACT Inhalation Aerosol Powder Breath Activated (umeclidinium Holiday)Indications :COPD, group A, by GOLD 2017 classification ([facility]) Inhale 1 Puff by mouth in the morning. 90 Each 01/08/20 24 Active documented as of this encounter (statuses as of 01/08/2024) Active Problems Problem Noted Date Diagnosed Date [...] fracture 05/09/2020 Coronary artery disease invo lving ekuk coronary artery of ekuk heart without angina pectoris 05/09/2020 Overview (12/16/2023): [...] Overview: Per COPD GOLD Classification History of KS (myocardial infarction) 07/11/2016 Abdominal aortic aneurysm (AAA) without rupture 05/09/2016 Paroxysmal atrial fibrillation 05/09/2016 Beta-blockers contraindicated 11/13/2011 HTN, goal below 140/90 09/15/2011 Hypothyroidism due to medication 05/29/2010 DYSLIPIDEMIA, GOAL LDL BELOW 100 01/25/2009 Overview (01/25/2009): Per Lipid Taxonomy. CHR ISCHEMIC HRT DIS NOS 03/31/2002 Overview (03/17/2012): Vivek documented as of this encounter (statuses as of 01/08/2024) Resolved Problems Problem Noted Date Diagnosed Date [...] as of this encounter (statuses as of 01/08/2024) Immunizations Name Administration Dates Next Due H1N1 [...] No 12/01/2023 Does the household have a rustlar source of income? (Household - for ages [...] encounter Miscellaneous Notes * Telephone Encounter - Lizzy Barboza MD - 01/08/2024 3:28 PM ESTSigned Prescriptions: Disp Refills Incruse Ellipta 62.5 MCG/ACT Inhalation Ae*90 Each0 Sig: Inhale 1 Puff by mouth in the morning.Authorizing Provider: LIZZY BARBOZA documented in this encounter Plan of Treatment Upcoming Encounters Date Type Department Care Team (Late st Contact Info) Description 02/03/2024 2:30 PM EST [facility] [address] [place] [address] Christ Early, DIANNA [address] [place] [address] 02/18/2024 11:00 AM EST [facility] Visit [facility] [place] [address] [place] [address] Yon Bell PA-C [address] [place] [address] 04/12/2024 10:30 AM EST Office Visit Cardiology, [facility] [address] [place] [address] Shaquille Le, [address] [place] [address] 06/22/2024 10:00 AM EDT Imaging Radiology [address] [place] [address] 06/22/2024 11:00 AM EDT Imaging Radiology [address] [place] [address] 06/29/2024 10:30 AM EDT Office Visit Vascular Surgery, [facility] [address] [place] [address] Saul Crenshaw MD [address] [place] [address] 08/11/2024 10:20 AM EDT Office Visit [facility] [address] [place] [address] Gabi Vinson CRNP [address] [place] [address] 11/15/2024 10:20 AM EDT Office Visit [facility] [address] [place] [address] Edgardo Sánchez DO [address] [place] [address] Health Maintenance Due Date Last Done Comments Adult Wellness Visit 2002 *BISPHONATE OR OTHER ACCEPTABLE MEDICATION NEEDED FOR OSTEOPOROSIS (REFER TO SMARTSET #1146) 05/11/2020 Diabetic Foot Exam 06/04/2023 06/03/2022 COVID-19 Vaccine ( season) 2023 CKD PHOS USE SMARTSET 34421 01/15/202412/18, 06/03/2021, 04/24/2021, Additional history exists HbA1c 05/10/2024 11/11/2023, 12/18, 01/20/2022, Additional history exists TSH 11/10/2024 11/11/2023, 07/02/2023, 01/14/2023, Additional history exists Albumin/Creatinine Ratio 11/15/2024 024, 01/16/2023, 06/03/2021, Additional history exists O2 ASSESSMENT COMPLETED IN PAST YEAR FOR COPD 11/26/2024 11/27/2023 CKD HGB USE SMARTSET 71343 11/27/202411/27, 11/27/2023, 11/16/2023, Additional history exists Depression Screening 11/30/2024 12/01/2023, 11/11/19 24 Diabetic Eye Exam 12/28/2024 12/29/2023, , 01/29/2000 DTap/Tdap Vaccines (3 - Td or Tdap) 06/09/2032 06/09/2022, 09/15/2011, 01/16/1994 VITAMIN D LEVEL ONCE IN A LIFETIME-USE SMARTSET# 49805 Completed 03/29/2012, 10/24/2008 Pneumococcal Vaccine: 65+ Years [...] this encounter Medical Devices Implanted Type Area Farm Machine Tender Device Identifier Shelf Expiration Date Model / Serial / Lot Lens Intraoc 19.0 - [id number] - [id number] Implanted:Qty: 1 on 06/18/2021 by Gilmer Davalos MD at OR [facility] Right: Eye [employer] 02/15/2026 [id number] / [id number] Plug Vasc Ampl 12mm 9-Plug-012 - [id number] Implanted:Qty: 1 on 11/27/2023 by Saul Crenshaw MD [place] [facility] Right: Iliac [employer] [id number] 2027 9-PLUG-01 [id number] 11mm X 10cm X 120cm Viabahn Endoprosthesis Stent Graft, With Heparin Bioactive Surface Implanted:Qty: 1 on 11/27/2023 by Saul Crenshaw MD at [place] [facility] Right: Iliac [employer] [id number] 07/19/2026 [id number] / [id number] / [id number] Graft Abdominal 32x14.9juu66ic Stent Control Trunk Ipsilateral System Leg Aortic Aneurysm Conformable Endoprosthesis With Active Excluder Aaa - [id number] Implanted:Qty: 1 on 11/27/2023 by Saul Crenshaw MD at [place] [facility] N/A: Aorta [employer] [id number] 07/14/2026 [id number] / [id number] Grft Excldr 74ifb70.5cm - [id number] Implanted:Qty: 1 on 11/27/2023 by Saul Crenshaw MD at [place] [facility] Left: Iliac [employer] 12/03/2025 [id number] / [id number] / [id number] Graft Excludr [id number] - [id number] Implanted:Qty: 1 on 11/27/2023 by Saul Crenshaw MD at [place] [facility] Right: Iliac [employer] [id number] 07/29/2026 [id number] / [id number] / [id number] documented as of this encounter Visit Diagnoses Diagnosis Infrarenal abdominal aortic aneurysm (AAA) without rupture (HCC)- Primary H/O endovascular stent graft for abdominal aortic aneurysm Blood vessel replaced by other means Coronary artery disease involving ekuk coronary artery of ekuk heart without angina pectoris 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) Advanced care planning/counseling discussion Other specified counseling COPD, group A, by GOLD 2017 classification ([facility]) documented in this encounter Advance Directives * Full Code (Latest Code Status on File) Date Activated Date Inactivated Comments 11/27/2023 11:28 AM 11/28/2023 7:06 PM This orde r reflects the patients wishes and were consensually agreed upon. Question Answer Comments Discussion of Advance Direct matt occurred with: Not Discussed due to patient's condition Care Teams Touch Up Carver Relationship Specialty Start Date End Date Edgardo Sánchez DO [address] [place] [address] PCP - General Family Medicine 03/09/19 documented as of this encounter
--- OUTSIDE RECORDS SUMMARY | 2024-04-03 21:55 | External Medical Summary | Summary of Care ---
Author Name Unknown Organization [facility] Address [address] [place] [address] Phone [phone] Care Team Providers Care Wine Cellar Worker Name Role Phone Edgardo Sánchez DO Primary Care Provider Reason for Referral * Evaluate & Treat - Unlimited Visits (Within 30 days (routine)) - Authorized Specialty Diagnoses / Procedures Referred By Albert moura Referred To Contact Ophthalmology Diagnoses Screening for diabetic retinopathy Edgardo Sánchez DO [address] [place] [address] Phone: tel: fax: Referral ID Status Reason Start Date Expiration Date Visits Requested Visits Authorized [id number] Authorized Specialty Services Required 01/25/[phone] Question Answer Referral Priority Within 30 days (routine) Where should this appointment be scheduled? External Referring for: Ophthalmology Conditions Ophthalmology Conditions Other Ophthalmology (comment) Reason for Visit * Reason Onset Date Comments Information 01/25/2024 DM eye Encounter Details Date Type Department Care Team (Late st Contact Info) Description 01/25/2024 Telephone Family Practice [facility] [address] [place] [address] Edgardo Sánchez DO [address] [place] [address] Information (DM eye) Allergies Active Allergy Reactions Criticality Noted Date Comments Jason Inhibitors Edema face/lips/tongue High 4 angioedema Latex 07/21/2016 Pt states he breaks out from this documented as of this encounter (statuses as of 01/25/2024) Medications ASPIRIN 81 MG PO TABSIndications:Cor onary [...] 10 Tablet 4 2:18 PM EDT 11/28/19 Active Additional Information Patient not taking.Reported on 01/05/2024 Clopidogrel Bisulfate 75 MG Oral Tablet (pLAVix) Take 1 Tablet by mouth in the morning. 90 Tablet 1 4 2:18 PM EDT 11/29/19 Active Additional Information Patient not taking.Reported on 01/05/2024 Tamsulosin HCl 0.4 MG Oral Capsule (Flomax) Take 1 Capsule by mouth in the morning. 30 Capsule 4 2:18 PM EDT 11/29/19 Active Additional Information Patient not taking.Reported on 01/05/2024 Albuterol Sulfate HFA 108 (90 Base) MCG/ACT Inhalation Aerosol SolutionIndications :COPD, group A, by GOLD 2017 classification ([facility]),COPD exacerbation ([facility]) Inhale 2 Puffs by mouth every 6 hours as needed for Shortness of Breath. 6.7 g 3 4 10:57 AM EST 12/29/19 24 Active Incruse Ellipta 62.5 MCG/ACT Inhalation Aerosol Powder Breath Activated (umeclidinium [place])Indications :COPD, group A, by GOLD 2017 classification ([facility]) Inhale 1 Puff by mouth in the morning. 90 Each 4 3:23 PM EST 01/08/20 24 Active Fluticasone-Salmete rol 250-50 MCG/ACT Inhalation Aerosol Powder Breath Activated (Advair Diskus)Indications: COPD, group A, by GOLD 2017 classification ([facility]),COPD exacerbation ([facility]) Inhale 1 Puff by mouth in the morning and 1 Puff before bedtime. 60 Each 12 4 4:19 PM EST 01/13/20 24 Active documented as of this encounter (statuses as of 01/25/2024) Active Problems Problem Noted Date Diagnosed Date [...] fracture 05/09/2020 Coronary artery disease invo lving tribal coronary artery of tribal heart without angina pectoris 05/09/2020 Overview (12/16/2023): [...] Overview: Per COPD GOLD Classification History of [place] (myocardial infarction) 07/11/2016 Abdominal aortic aneurysm (AAA) without rupture 05/09/2016 Paroxysmal atrial fibrillation 05/09/2016 Beta-blockers contraindicated 11/13/2011 HTN, goal below 140/90 09/15/2011 Hypothyroidism due to medication 05/29/2010 DYSLIPIDEMIA, GOAL LDL BELOW 100 01/25/2009 Overview (01/25/2009): Per Lipid Taxonomy. CHR ISCHEMIC HRT DIS NOS 03/31/2002 Overview (03/17/2012): [place] documented as of this encounter (statuses as of 01/25/2024) Resolved Problems Problem Noted Date Diagnosed Date [...] now needs to bring it in. Silva Sanabrai RN hx of pneumonectomy 03/14/2000 07/05/19 20 Overview (07/05/2019): Historical. Calculus of kidney 9 ACUTE MYOCARDIAL INFARCTION; OTHER ANTERIOR WALL,EPISODE CARE UNSPECIFIED 07/11/2016 Dermatophytosis of nail 11/17 Mixed dyslipidemia 9 Overview (01/25/2009): Per Lipid Taxonomy. documented as of this encounter (statuses as of 01/25/2024) Immunizations Name Administration Dates Next Due H1N1 [...] money to buy more. Never true 12/01/19 Within the past 12 months, t he [...] encounter Miscellaneous Notes * Telephone Encounter - Betsy Gonzalez LPN - 01/25/2024 8:28 AM EST Patient with a positive Diabetic Retinopathy scan OR uninterpretable Diabetic Retinopathy exam. Theimages are not able to be interpreted. Outreach action taken: Patient will Schedule with Outside Provider (See TE 12/28)] Referral generated. Betsy Gonzalez LPN Care Gaps Department documented in this encounter Plan of Treatment Upcoming Encounters Date Type Department Care Team (Late st Contact Info) Description 02/03/2024 2:30 PM EST [facility] [address] [place] [address] Christ Early, RN [address] [place] [address] 02/18/2024 11:00 AM EST [facility] [address] [place] [address] Yon Bell PA-C [address] [place] [address] 04/12/2024 10:30 AM EST Office Visit Cardiology, [facility] [address] [place] [address] Shaquille Le DO [address] [place] [address] 06/22/2024 10:00 AM EDT Imaging Radiology [address] [place] [address] 06/22/2024 11:00 AM EDT Imaging Radiology [address] [facility] [place] [address] 06/29/2024 10:30 AM EDT Office Visit Vascular Surgery, [facility] [address] [facility] [place] [address] Saul Crenshaw MD [address] [place] [address] 08/11/2024 10:20 AM EDT [facility] [place] [address] Gabi Vinson CRNP [address] [facility] [place] [address] 11/15/2024 10:20 AM EDT Office Visit [facility] [address] [facility] [place] [address] Edgardo Sánchez DO [address] [facility] [place] [address] Scheduled Referrals Name Type Priority Associated Diagnoses Orde r Schedule ADULT/PEDS OPHTHALMOLOGY/OPTOM ETRY REFERRAL OP Referral Within 30 days (routine) Screening for diabetic retinopathy Ordered: 01/25/2024 Health Maintenance Due Date Last Done Comments Adult Wellness Visit 2002 *BISPHONATE OR OTHER ACCEPTABLE MEDICATION NEEDED FOR OSTEOPOROSIS (REFER TO SMARTSET #1146) 05/11/2020 Diabetic Foot Exam 06/04/2023 06/03/2022 COVID-19 Vaccine ( season) 2023 CKD PHOS USE SMARTSET 46838 01/15/202412/18, 06/03/2021, 04/24/2021, Additional history exists HbA1c 05/10/2024 11/11/2023, 12/18, 01/20/2022, Additional history exists TSH 11/10/2024 11/11/2023, 08/18, 01/14/2023, Additional history exists Albumin/Creatinine Ratio 11/15/2024 024, 01/16/2023, 06/03/2021, Additional history exists O2 ASSESSMENT COMPLETED IN PAST YEAR FOR COPD 11/26/2024 11/27/2023 CKD HGB USE SMARTSET 96195 11/27/202411/27, 11/27/2023, 11/16/2023, Additional history exists Depression Screening 11/30/2024 12/01/2023, 11/11/19 Diabetic Eye Exam 12/28/2024 12/29/2023, , 01/29/2000 DTap/Tdap Vaccines (3 - Td or Tdap) 06/09/2032 06/09/2022, 09/15/2011, 01/16/1994 VITAMIN D LEVEL ONCE IN A LIFETIME-USE SMARTSET# 39072 Completed 03/29/2012, 10/24/2008 Pneumococcal Vaccine: 65+ Years [...] this encounter Medical Devices Implanted Type Area Lumber Cutter Device Identifier Shelf Expiration Date Model / Serial / Lot Lens Intraoc 19.0 - [id number] - [id number] Implanted:Qty: 1 on 06/18/2021 by Gilmer Davalos MD at OR [facility] Right: Eye [employer] 02/15/2026 [id number] / [id number] Plug Vasc Ampl 12mm 9-Plug-012 - [id number] Implanted:Qty: 1 on 11/27/2023 by Saul Crenshaw MD [place] [facility] Right: Iliac [employer] [id number] 2027 9-PLUG-01 [id number] 11mm X 10cm X 120cm Viabahn Endoprosthesis Stent Graft, With Heparin Bioactive Surface Implanted:Qty: 1 on 11/27/2023 by Saul Crenshaw MD [place] [facility] [place] Right: Iliac [employer] [id number] 07/19/2026 [id number] / [id number] / [id number] Graft Abdominal 32x14.6xrp91pc Stent Control Trunk Ipsilateral System Leg Aortic Aneurysm Conformable Endoprosthesis With Active Excluder Aaa - [id number] Implanted:Qty: 1 on 11/27/2023 by Saul Crenshaw MD at [place] [facility] [place] N/A: Aorta [employer] [id number] 07/14/2026 [id number] / [id number] Grft Excldr 77qmb90.5cm - [id number] Implanted:Qty: 1 on 11/27/2023 by Saul Crenshaw MD at [place] [facility] Left: Iliac [employer] 12/03/2025 [id number] / [id number] / [id number] Graft Excludr [id number] - [id number] Implanted:Qty: 1 on 11/27/2023 by Saul Crenshaw MD at [place] [facility] Right: Iliac [employer] [id number] 07/29/2026 [id number] / [id number] / [id number] documented as of this encounter Visit Diagnoses Diagnosis Infrarenal abdominal aortic aneurysm (AAA) without rupture (HCC)- Primary H/O endovascular stent graft for abdominal aortic aneurysm Blood vessel replaced by other means Coronary artery disease involving tribal coronary artery of tribal heart without angina pectoris 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) Advanced care planning/counseling discussion Other specified counseling Screening for diabetic retinopathy- Primary Screening for other eye conditions documented in this encounter Advance Directives * Full Code (Latest Code Status on File) Date Activated Date Inactivated Comments 11/27/2023 11:28 AM 11/28/2023 7:06 PM This orde r reflects the patients wishes and were consensually agreed upon. Question Answer Comments Discussion of Advance Direct matt occurred with: Not Discussed due to patient's condition Care Teams Wine Cellar Worker Relationship Specialty Start Date End Date Edgardo Sánchez DO [address] [place] [address] PCP - General Family Medicine 03/09/19 documented as of this encounter
--- OUTSIDE RECORDS SUMMARY | 2024-04-03 21:55 | External Medical Summary | Summary of Care ---
Author Name Unknown Organization [facility] [address] [facility] [address] Phone [phone] Care Team Providers Care Spray Dyer Name Role Phone Edgardo Sánchezmariel Primary Care Provider Encounter Details Date Type Department Care Team (Late st Contact Info) Description 01/05/2024 2:30 PM EST [facility] Visit [facility] [address] [place] [address] Christ Early, RN [address] [place] [address] Allergies Active Allergy Reactions Criticality Noted Date Comments Jason Inhibitors Edema face/lips/tongue High 4 angioedema Latex 07/21/2016 Pt states he breaks out from this documented as of this encounter (statuses as of 01/05/2024) Medications ASPIRIN 81 MG PO TABSIndications:Cor onary [...] A, by GOLD 2017 classification ([facility]),COPD exacerbation ([facility]) Inhale 2 Puffs by mouth every 6 hours as needed for Shortness of Breath. 6.7 g 3 4 10:57 AM EST 12/29/19 Active Fluticasone-Umeclid in-Vilant 100-62.5-25 MCG/ACT Aerosol Powder Breath Activated (Trelegy Ellipta)Indications :COPD, group A, by GOLD 2017 classification (HCC),COPD exacerbation (HCC) Inhale 1 Puff by mouth in the morning. 180 Blister Dosing Unit 3 12/29/19 Active documented as of this encounter (statuses as of 01/05/2024) Active Problems Problem Noted Date Diagnosed Date [...] fracture 05/09/2020 Coronary artery disease invo lving [place] coronary artery of [place] heart without angina pectoris 05/09/2020 Overview (12/16/2023): [...] Overview: Per COPD GOLD Classification History of [place] (myocardial infarction) 07/11/2016 Abdominal aortic aneurysm (AAA) without rupture 05/09/2016 Paroxysmal atrial fibrillation 05/09/2016 Beta-blockers contraindicated 11/13/2011 HTN, goal below 140/90 09/15/2011 Hypothyroidism due to medication 05/29/2010 DYSLIPIDEMIA, GOAL LDL BELOW 100 01/25/2009 Overview (01/25/2009): Per Lipid Taxonomy. CHR ISCHEMIC HRT DIS NOS 03/31/2002 Overview (03/17/2012): Vivek documented as of this encounter (statuses as of 01/05/2024) Resolved Problems Problem Noted Date Diagnosed Date [...] as of this encounter (statuses as of 01/05/2024) Immunizations Name Administration Dates Next Due H1N1 [...] Sign Reading Time Taken Comments Blood Pressure 136/78 01/05/2024 2:47 PM EST Pulse 60 01/05/2024 2:47 PM EST Temperature 36.3 C (97.3 F) 01/05/2024 2:47 PM ES T Respiratory Rate 18 01/05/2024 2:47 PM EST Oxygen Saturation 98% 01/05/2024 2:47 PM EST Inhaled Oxygen Concentration - - Weight - - Height - - Body Mass Index - - documented in this encounter Progress Notes * Christ Early, DIANNA - 01/05/2024 2:32 PM EST Current Concerns: Situation: Pt seen today by [facility] planner chief for routine follow-up visit. Background: PMH includes: COPD, CKD3, HTN, HLD, DM2, osteoporosis, CAD, AAA s/p repair Assessment: Pt reports that he is feeling good today Denies issues, concerns at time of visit Pt had episode of Angioedema end of November after taking Lisinopril Pt grandson is controller mechanic and had pt stop Lisinopril until pt was seen by PCP Lisinopril d/nhung BP today 136/78 Pt reports was outside raking leaves and working on tractor prior to this RN arrival Pt follows with Cards, next appt 04/12 Pt s/p repair of AAA Wound vac removed Pt reports wound is healed, closed Following with Vascular Surgery Last appt 12/29- stable per note Next appt 06/29 COPD appears stable at time of visit Pt taking Trelegy daily Using Albuterol inhaler PRN, pt reports typically uses once per day Lungs CTA Pt denies SOB, VELEZ above baseline Pt reports "If I get to doing too much, then I'm huffing and puffing but otherwise I'm okay' VS WNL Heart R&R regular Lungs clear bilaterally Free of edema Per pt report: Voiding without difficulty Continues to have nocturia- getting up approx 2 times per night- no longer taking Flomax Bowels WNL Appetite good Taking fluids well Pt does report occasional lower back pain States typically occurs when walking/doing activity and belt falls down, hits on lower back region causing pain Pt does take APAP PRN pain Pt reports daughter did not call [employer] regarding hearing aides and potential assistance This RN did provide with phone number at last visit Pt reports is not urgent and hearing remains "Ok" so does not need immediate action Physical Exam: Physical Exam Constitutional: Appearance: Normal appearance. HENT: Nose: No congestion. Mouth/Throat: Pharynx: No oropharyngeal exudate. Cardiovascular: Rate and Rhythm: Normal rate and regular rhythm. Pulmonary: Effort: Pulmonary effort is normal. Breath sounds: Normal breath sounds. Abdominal: General: Bowel sounds are normal. Palpations: Abdomen is soft. Musculoskeletal: General: Normal range of motion. Skin: General: Skin is warm and dry. Capillary Refill: Capillary refill takes 2 to 3 seconds. Neurological: General: No focal deficit present. Mental Status: He is alert and oriented to person, place, and time. Psychiatric: Mood and Affect: Mood normal. Behavior: Behavior normal. Review of Systems: Review of Systems Constitutional: Negative for activity change, chills, fatigue and fever. HENT: Negative. Negative for congestion, facial swelling and sore throat. Respiratory: Negative. Negative for cough and shortness of breath. Cardiovascular: Negative. Negative for leg swelling. Gastrointestinal: Negative. Genitourinary: Negative. Musculoskeletal: Positive for back pain. Neurological: Negative. Negative for syncope, weakness, light-headedness and headaches. Psychiatric/Behavioral: Negative. Care Plan Goal [...] closed this contact: Education;Plan of Care (POC);Medications (01/05/24 1501) Type of education: Clinical/disease (01/05/24 1501) Type of medication care gap: Medication adherence (01/05/24 1501) Type of plan of care (POC) care gap: Adjustment of plan of care (POC) and/or Integrated Care Plan (ICP) (01/05/24 1501) documented in this encounter Plan of Treatment Upcoming Encounters Date Type Department Care Team (Late st Contact Info) Description 02/03/2024 2:30 PM EST [facility] Visit [facility] [place], [facility] [address] [address] Christ Early, RN [address] [place] [address] 02/18/2024 11:00 AM EST Home Visit [facility] [place], [facility] [address] [address] Yon Bell PA-C [address] [place] [address] 04/12/2024 10:30 AM EST Office Visit Cardiology, [facility] [address] [address] Shaquille Le DO [address] [place] [address] 06/22/2024 10:00 AM EDT Imaging Radiology [address] [place] [address] 06/22/2024 11:00 AM EDT Imaging Radiology [facility] [place] [address] [place] [address] 06/29/2024 10:30 AM EDT Office Visit Vascular Surgery, [facility] [address] [place] [address] Saul Crenshaw MD [address] [place] [address] 08/11/2024 10:20 AM EDT Office Visit Family Practice [facility] [address] [place] [address] Gabi Vinson CRNP [address] [place] [address] 11/15/2024 10:20 AM EDT Office Visit Family Practice [facility] [address] [place] [address] Edgardo Sánchez DO [address] [place] [address] Health Maintenance Due Date Last Done Comments Adult Wellness Visit 2002 *BISPHONATE OR OTHER ACCEPTABLE MEDICATION NEEDED FOR OSTEOPOROSIS (REFER TO SMARTSET #1146) 05/11/2020 Diabetic Foot Exam 06/04/2023 06/03/2022 COVID-19 Vaccine ( season) 2023 CKD PHOS USE SMARTSET 60330 01/15/202412/18, 06/03/2021, 04/24/2021, Additional history exists HbA1c 05/10/2024 11/11/2023, 12/18, 01/20/2022, Additional history exists TSH 11/10/2024 11/11/2023, 08/18, 01/14/2023, Additional history exists Albumin/Creatinine Ratio 11/15/2024 024, 01/16/2023, 06/03/2021, Additional history exists O2 ASSESSMENT COMPLETED IN PAST YEAR FOR COPD 11/26/2024 11/27/2023 CKD HGB USE SMARTSET 85175 11/27/202411/27, 11/27/2023, 11/16/2023, Additional history exists Depression Screening 11/30/2024 12/01/2023, 11/11/19 Diabetic Eye Exam 12/28/2024 12/29/2023, , 01/29/2000 DTap/Tdap Vaccines (3 - Td or Tdap) 06/09/2032 06/09/2022, 09/15/2011, 01/16/1994 VITAMIN D LEVEL ONCE IN A LIFETIME-USE SMARTSET# 52920 Completed 03/29/2012, 10/24/2008 Pneumococcal Vaccine: 65+ Years [...] this encounter Medical Devices Implanted Type Area Attending Urologist Device Identifier Shelf Expiration Date Model / Serial / Lot Lens Intraoc 19.0 - [id number] - [id number] Implanted:Qty: 1 on 06/18/2021 by Gilmer Davalos MD at OR [facility] Right: Eye [employer] 02/15/2026 [id number] / [id number] Plug Vasc Ampl 12mm 9-Plug-012 - [id number] Implanted:Qty: 1 on 11/27/2023 by Saul Crenshaw MD at OR [facility] Right: Iliac [employer] [id number] 2027 / [id number] 11mm X 10cm X 120cm Viabahn Endoprosthesis Stent Graft, With Heparin Bioactive Surface Implanted:Qty: 1 on 11/27/2023 by Saul Crenshaw MD at OR [facility] Right: Iliac [employer] [id number] 07/19/2026 [id number] / [id number] / [id number] Graft Abdominal 32x14.3jnm47jb Stent Control Trunk Ipsilateral System Leg Aortic Aneurysm Conformable Endoprosthesis With Active Excluder Aaa - [id number] Implanted:Qty: 1 on 11/27/2023 by Saul Crenshaw MD at OR [facility] N/A: Aorta [employer] [id number] 07/14/2026 [id number] / / [id number] Grft Excldr 31ybc43.5cm - [id number] Implanted:Qty: 1 on 11/27/2023 by Saul Crenshaw MD at OR [facility] Left: Iliac [employer] 12/03/2025 [id number] / [id number] / [id number] Graft Excludr [id number] - [id number] Implanted:Qty: 1 on 11/27/2023 by Saul Crenshaw MD at OR [facility] Right: Iliac [employer] [id number] 07/29/2026 [id number] / [id number] / [id number] documented as of this encounter Advance Directives * Full Code (Latest Code Status on File) Date Activated Date Inactivated Comments 11/27/2023 11:28 AM 11/28/2023 7:06 PM This orde r reflects the patients wishes and were consensually agreed upon. Question Answer Comments Discussion of Advance Direct matt occurred with: Not Discussed due to patient's condition Care Teams Spray Dyer Relationship Specialty Start Date End Date Edgardo Sánchez DO [address] [place] [address] PCP - General Family Medicine 03/09/19 documented as of this encounter
--- OUTSIDE RECORDS SUMMARY | 2024-04-03 21:55 | External Medical Summary | Summary of Care ---
Author Name Unknown Organization [facility] Address [address] [place] [address] Phone [phone] Care Team Providers Care Exerciser Horse Name Role Phone Edgardo Sánchez Primary Care Provider Encounter Details Date Type Department Care Team (Late st Contact Info) Description 03/01/2024 Population Health External Data Unspecified Department Allergies [...] :COPD, group A, by GOLD 2017 classification ([facility]),COPD exacerbation (HCC) Inhale 2 Puffs by mouth every 6 hours as needed for Shortness of Breath. 6.7 g 3 4 10:57 AM EST 12/29/19 24 Active Incruse Ellipta 62.5 MCG/ACT Inhalation Aerosol Powder Breath Activated (umeclidinium Severance)Indications :COPD, group A, by GOLD 2017 classification ([facility]) Inhale 1 Puff by mouth in the morning. 90 Each 4 11:05 AM EST 01/08/20 24 Active Fluticasone-Salmete rol 250-50 MCG/ACT Inhalation Aerosol Powder Breath Activated (Advair Diskus)Indications: COPD, group A, by GOLD 2017 classification ([facility]),COPD exacerbation ([facility]) Inhale 1 Puff by mouth [...] EST): Follows with cardiology S/p inferior wall MA Assessment & Plan (12/16/2023 11:48 AM EDT): [...] know what this was for) History of [place] (myocardial infarction) 07/11/2016 Abdominal aortic aneurysm (AAA) [...] Description 03/02/2024 12:30 PM EST Home Visit [facility] [address] [address] Christ Early, RN [address] [place] [address] 04/12/2024 10:30 AM EST Office Visit Cardiology, [facility] [address] [address] Shaquille Le, [address] [place] [address] 06/22/2024 10:00 AM EDT Imaging Radiology [facility]st [facility] [place] [address] [phone] 06/22/2024 11:00 AM EDT Imaging Radiology [address], [place] [address] [place] [phone] 06/29/2024 10:30 AM EDT Office Visit Vascular Surgery, [facility] [address] [place] [address] Saul Crenshaw MD [address] [facility] [place], [place] [address] 08/11/2024 10:20 AM EDT Office Visit [facility] [address] [place] [address] Gabi Vinson CRNP [address] [place] [address] 11/15/2024 10:20 AM EDT Office Visit [facility] [address] [place] [address] Edgardo Sánchez DO [address] [place] [address] Health Maintenance Due Date Last Done Comments Adult Wellness Visit 2002 *BISPHONATE OR OTHER ACCEPTABLE MEDICATION NEEDED FOR OSTEOPOROSIS (REFER TO SMARTSET #1146) 05/11/2020 Diabetic Foot Exam 06/04/2023 06/03/2022 COVID-19 Vaccine ( season) 2023 CKD PHOS USE SMARTSET 69264 01/15/202412/18, 06/03/2021, 04/24/2021, Additional history exists HbA1c 05/10/2024 11/11/2023, 12/18, 01/20/2022, Additional history exists TSH 11/10/2024 11/11/2023, 08/18, 01/14/2023, Additional history exists Albumin/Creatinine Ratio 11/15/2024 024, 01/16/2023, 06/03/2021, Additional history exists O2 ASSESSMENT COMPLETED IN PAST YEAR FOR COPD 11/26/2024 11/27/2023 CKD HGB USE SMARTSET 47102 11/27/202411/27, 11/27/2023, 11/16/2023, Additional history exists Depression Screening 11/30/2024 12/01/2023, 11/11/19 Diabetic Eye Exam 12/28/2024 12/29/2023, , 01/29/2000 DTap/Tdap Vaccines (3 - Td or Tdap) 06/09/2032 06/09/2022, 09/15/2011, 01/16/1994 VITAMIN D LEVEL ONCE IN A LIFETIME-USE SMARTSET# 24397 Completed 03/29/2012, 10/24/2008 Pneumococcal Vaccine: 50+ Years [...] this encounter Medical Devices Implanted Type Area Frame Assembler Device Identifier Shelf Expiration Date Model / Serial / Lot Lens Intraoc 19.0 - [id number] - [id number] Implanted:Qty: 1 on 06/18/2021 by Gilmer Davalos MD at OR [facility] Right: Eye [employer] 02/15/2026 [id number] / [id number] Plug Vasc Ampl 12mm 9-Plug-012 - [id number] Implanted:Qty: 1 on 11/27/2023 by Saul Crenshaw MD at OR [facility] Right: Iliac [employer] [id number] 2027 9-PLUG-[id number] 11mm X 10cm X 120cm Viabahn Endoprosthesis Stent Graft, With Heparin Bioactive Surface Implanted:Qty: 1 on 11/27/2023 by Saul Crenshaw MD at OR [facility] Right: Iliac [employer] [id number] 07/19/2026 [id number] / [id number] / [id number] Graft Abdominal 32x14.2qyl92ek Stent Control Trunk Ipsilateral System Leg Aortic Aneurysm Conformable Endoprosthesis With Active Excluder Aaa - [id number] Implanted:Qty: 1 on 11/27/2023 by Saul Crenshaw MD at OR [facility] N/A: Aorta [employer] [id number] 07/14/2026 [id number] / / [id number] Grft Excldr 59ffg05.5cm - [id number] Implanted:Qty: 1 on 11/27/2023 by Saul Crenshaw MD at OR [facility] Left: Iliac [employer] 12/03/2025 [id number] / [id number] / [id number] Graft Excludr [id number] - [id number] Implanted:Qty: 1 on 11/27/2023 by Saul Crenshaw MD at OR [facility] Right: Iliac [employer] [id number] 07/29/2026 [id number] / [id number] / [id number] documented as of this encounter Advance Directives * Full Code (Latest Code Status on File) Date Activated Date Inactivated Comments 11/27/2023 11:28 AM 11/28/2023 7:06 PM This orde r reflects the patients wishes and were consensually agreed upon. Question Answer Comments Discussion of Advance Direct matt occurred with: Not Discussed due to patient's condition Care Teams Exerciser Horse Relationship Specialty Start Date End Date Edgardo Sánchez DO [address] [address] PCP - General Family Medicine 03/09/19 documented as of this encounter
--- OUTSIDE RECORDS SUMMARY | 2024-04-03 21:55 | External Medical Summary | Summary of Care ---
Author Name Unknown Organization [facility] Address [address] [place] [address] Phone [phone] Care Team Providers Care Medical Assistant Ob Gyn Name Role Phone Edgardo Sánchezmariel Primary Care Provider Encounter Details Date Type Department Care Team (Late st Contact Info) Description 02/18/2024 11:00 AM EST [facility] [address] [place] [address] Yon Bell PA-C [address] [place] [address] COPD, group A, by GOLD 2017 classification ([facility])*; Paroxysmal atrial fibrillation ([facility]); Type 2 diabetes mellitus with stage 3b chronic kidney disease, without long-term current use of insulin ([facility]); 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 ([facility]); Coronary artery disease involving crow coronary artery of crow heart without angina pectoris; Age-related osteoporosis without current pathological fracture; Dyslipidemia, goal LDL below 100; HFrEF (heart failure with reduced ejection fraction) ([facility]); Disorder of parathyroid gland ([facility]); Hypothyroidism, unspecified type Allergies Active Allergy Reactions Criticality Noted Date Comments Jason Inhibitors Edema face/lips/tongue High 4 angioedema Latex 07/21/2016 Pt states he breaks out from this documented as of this encounter (statuses as of 02/21/2024) Medications ASPIRIN 81 MG PO TABSIndications:Co ronary atherosclerosis 1 daily 0 0 008 Active VITAMIN D 1000 UNIT PO CAPS 1 capsule daily 0 0 009 Active Multi-Vitamins Oral Tablet Take 1 Tablet by mouth in the morning. Active Diclofenac Sodium 1 % External Gel (Voltaren)Indicati ons:Osteoarthritis of left knee, unspecified osteoarthritis type Apply 4 g topically to affected area 3 times a day as needed for Pain, Moderate. Apply to the affected knee as needed. 1100 g 5 01/21/20 23 5:05 PM EST 023 Active Additional Information Patient not taking.Reported on 01/05/2024 Levothyroxine Sodium 100 MCG Oral Tablet (Levoxyl)Indicatio ns:Hypothyroidism due to acquired atrophy of thyroid TAKE ONE TABLET BY MOUTH DAILY AT LEAST 30 MINUTES PRIOR TO FIRST MEAL OF THE DAY OR OTHER MEDS 100 Tablet 3 02/15/20 24 7:55 AM EST 024 2024 Active Atorvastatin Calcium 80 MG Oral Tablet (Lipitor)Indicatio ns:Dyslipidemia, goal LDL below 100 TAKE ONE TABLET BY MOUTH EVERY MORNING 100 Tablet 3 01/06/20 24 9:23 AM EST 024 Active Amiodarone HCl 200 MG Oral Tablet (Cordarone)Indicat ions:Paroxysmal atrial fibrillation (HCC) TAKE ONE TABLET BY MOUTH EVERY MORNING 100 Tablet 3 02/04/20 24 7:19 AM EST 024 2024 Active Albuterol Sulfate HFA 108 (90 Base) MCG/ACT Inhalation Aerosol SolutionIndication s:COPD, group A, by GOLD 2017 classification ([facility]),COPD exacerbation (HCC) Inhale 2 Puffs by mouth every 6 hours as needed for Shortness of Breath. 6.7 g 3 12/30/19 24 10:57 AM EST 024 Active Incruse Ellipta 62.5 MCG/ACT Inhalation Aerosol Powder Breath Activated (umeclidinium Harrison)Indication s:COPD, group A, by GOLD 2017 classification ([facility]) Inhale 1 Puff by mouth in the morning. 90 Each 02/05/20 24 11:05 AM EST 024 Active Fluticasone-Salmet lourdes 250-50 MCG/ACT Inhalation Aerosol Powder Breath Activated (Advair Diskus)Indications :COPD, group A, by GOLD 2017 classification (HCC),COPD exacerbation (HCC) Inhale 1 Puff by mouth in the morning and 1 Puff before bedtime. 60 Each 12 01/13/20 24 4:19 PM EST Active oxyCODONE HCl 5 MG Oral Tablet (Oxy IR) Take 1 Tablet by mouth every 4 hours as needed for severe pain for up to 10 doses. 10 Tablet 11/28/19 24 2:18 PM EDT 2024 Discontinued Clopidogrel Bisulfate 75 MG Oral Tablet (pLAVix) Take 1 Tablet by mouth in the morning. 90 Tablet 1 11/28/19 24 2:18 PM EDT 2024 Discontinued Tamsulosin HCl 0.4 MG Oral Capsule (Flomax) Take 1 Capsule by mouth in the morning. 30 Capsule 11/28/19 2:18 PM EDT 2024 Discontinued documented as of this encounter (statuses as of 02/21/2024) Active Problems Problem Noted Date Diagnosed Date [...] Vitamin D Coronary artery disease invo lving crow coronary artery of crow heart without angina pectoris 05/09/2020 Overview (12/16/2023): [...] EST): Follows with cardiology S/p inferior wall DE Assessment & Plan (12/16/2023 11:48 AM EDT): [...] know what this was for) History of DE (myocardial infarction) 07/11/2016 Abdominal aortic aneurysm (AAA) [...] as of this encounter (statuses as of 02/21/2024) Resolved Problems Problem Noted Date Diagnosed Date [...] as of this encounter (statuses as of 02/21/2024) Immunizations Name Administration Dates Next Due H1N1 [...] Sign Reading Time Taken Comments Blood Pressure 162/86 02/18/2024 11:21 AM EST Pulse 60 02/18/2024 11:21 AM EST Temperature - - Respiratory Rate - - Oxygen Saturation 97% 02/18/2024 11:21 AM EST Inhaled Oxygen Concentration - - Weight - - Height - - Body Mass Index - - documented in this encounter Progress Notes * Yon Bell PA-C - 02/18/2024 10:35 AM EST Images from the original note were not included. [facility] Provider Visit Assessment and Plan Assessment & Plan COPD, group A, by GOLD 2017 classification ([facility]) "RED FLAG" COPD symptoms: Increased dyspnea on [...] did not know what this was for) Paroxysmal atrial fibrillation ([facility]) Rate controlled, continue amiodarone Not on anticoag Type 2 diabetes mellitus with stage 3b chronic kidney disease, without long-term current use of insulin ([facility]) A1c improved past 2 years 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 ([facility]) BP slightly elevated today, will continue to monitor for now Coronary artery disease involving crow coronary artery of crow heart without angina pectoris Follows with cardiology S/p inferior wall DE Age-related osteoporosis without current pathological fracture Vitamin D Dyslipidemia, goal LDL below 100 Continue statin HFrEF (heart failure with reduced ejection fraction) ([facility]) Euvolemic today Not on diuretic No longer on jason/arb due to angioedema Disorder of parathyroid gland ([facility]) S/p parathyroidectomy Hypothyroidism, unspecified type Continue synthroid Additional Medical Decision Making: Patient lives alone, 2 story home Stair lift to upstairs Reports independent with all ADLs/IADLs Manages own medications Continues to drive Family is supportive Continues to follow with PCP, vascular surg, cardiology Gait slow and slightly unsteady, offered PT due to recent fall, but patient declines BP slightly elevated today, but did not take meds yet. Will monitor for now Scheduled appointments in the next 60 days: Future Appointments-next 60 days Date/Time Provider Specialty Dept Phone 02/18/2024 11:00 AM Yon Bell PA-C [facility] [phone] 03/02/2024 12:30 PM Christ Early RN [facility] [phone] 04/12/2024 10:30 AM (Arrive by 10:15 AM) Shaquille Le DO Cardiology [phone] 06/22/2024 10:00 AM [facility] CT 3D [facility] RECON Radiology [phone] 06/22/2024 11:[address] [facility] Radiology [phone] 06/29/2024 10:30 AM Saul Crenshaw MD Vascular Surgery [phone] 08/11/2024 10:20 AM (Arrive by 10:05 AM) Gabi Vinson CRNP Family Medicine [phone] 11/15/2024 10:20 AM (Arrive by 10:05 AM) Edgardo Sánchez DO Family Medicine [phone] A total of 45 minutes was spent face to face (via video-based telemedicine if designated as a telemedicine visit) Subjective Subjective Is this a Telemedicine Visit? No, this is an Home Visit. Reason For [facility] Visit: Follow-Up Current Concerns: Nitin Pickett is a 88 year old male seen today for a [facility] provider visit. PMH includes COPD, CKD3, HTN, HLD, DM2, osteoporosis, CAD, AAA s/p repair 11/25-11/28/23 [place] [facility] [place] AAA [place] Today's concerns are: Legs weak, difficulty walking Fell 02/08, bruising and skin tear to left elbow Slightly tender, but improving Good ROM Does not use assistive device Denies any SOB Denies VELEZ, but appears to have some today, states that's his baseline Denies cough Appetite ok Weight stable Bowels regular Additional Current Outpatient Medications Medication Sig Dispense Refill ASPIRIN 81 MG PO TABS 1 daily 0 0 VITAMIN D 1000 UNIT PO CAPS 1 capsule daily 0 0 Multi-Vitamins Oral Tablet Take 1 Tablet by mouth in the morning. Diclofenac Sodium 1 % External Gel (Voltaren) Apply 4 g topically to affected area 3 times a day asneeded for Pain, Moderate. Apply to the affected knee as needed. (Patient not taking: Reported on 01/05/2024) 1100 g 5 Levothyroxine Sodium 100 MCG Oral Tablet (Levoxyl) TAKE ONE TABLET BY MOUTH DAILY AT LEAST 30 MINUTES PRIOR TO FIRST MEAL OF THE DAY OR OTHER MEDS 100 Tablet 3 Atorvastatin Calcium 80 MG Oral Tablet (Lipitor) TAKE ONE TABLET BY MOUTH EVERY MORNING 100 Tablet 3 Amiodarone HCl 200 MG Oral Tablet (Cordarone) TAKE ONE TABLET BY MOUTH EVERY MORNING 100 Tablet 3 oxyCODONE HCl 5 MG Oral Tablet (Oxy IR) Take 1 Tablet by mouth every 4 hours as needed for severe pain for up to 10 doses. (Patient not taking: Reported on 01/05/2024) 10 Tablet 0 Clopidogrel Bisulfate 75 MG Oral Tablet (pLAVix) Take 1 Tablet by mouth in the morning. (Patient not taking: Reported on 01/05/2024) 90 Tablet 1 Tamsulosin HCl 0.4 MG Oral Capsule (Flomax) Take 1 Capsule by mouth in the morning. (Patient not taking: Reported on 01/05/2024) 30 Capsule 0 Albuterol Sulfate HFA 108 (90 Base) MCG/ACT Inhalation Aerosol Solution Inhale 2 Puffs by mouth every 6 hours as needed for Shortness of Breath. 6.7 g 3 Incruse Ellipta 62.5 MCG/ACT Inhalation Aerosol Powder Breath Activated (umeclidinium Harrison) Inhale 1 Puff by mouth in the morning. 90 Each 0 Fluticasone-Salmeterol 250-50 MCG/ACT Inhalation Aerosol Powder Breath Activated (Advair Diskus) Inhale 1 Puff by mouth in the morning and 1 Puff before bedtime. 60 Each 12 No current facility-administered medications for this visit. I have reviewed the following results: CBC and BMP Lab Results Component Value Date/Time LEFT VENTRICULAR EJECTION FRACTION 50 09/09/2023 01:43 PM Objective Objective There were no vitals filed for this visit. Last Weights: Wt Readings from Last 3 Encounters: 12/30/23 84.2 kg (185 lb 9.6 oz) 12/29/23 83.2 kg (183 lb 7 oz) 12/09/23 83.7 kg (184 lb 9.6 oz) Last BPs: BP Readings from Last 4 Encounters: 01/05/24 136/78 12/30/23 152/82 12/29/23 136/72 12/16/23 118/60 General: alert and no distress Neuro: alert & oriented x 3 with fluent speech Heart: regular rate & rhythm and no murmur Lungs: lungs clear to auscultation Abdomen: abdomen soft, non-tender, and normal bowel sounds Ext: left elbow ecchymosis and old scab noted documented in this encounter Miscellaneous Notes * Assessment & Plan Note - Yon Bell PA-C - 02/21/2024 10:02 PM EST Associated Problem(s): COPD, group A, by GOLD 2017 classification (HCC) "RED FLAG" COPD symptoms: Increased dyspnea on [...] did not know what this was for) * Assessment & Plan Note - Yon Bell PA-C - 02/21/2024 10:02 PM EST Associated Problem(s): Paroxysmal atrial fibrillation (HCC) Rate controlled, continue amiodarone Not on anticoag * Assessment & Plan Note - Yon Bell PA-C - 02/21/2024 10:02 PM EST Associated Problem(s): 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) A1c improved past 2 years * Assessment & Plan Note - Yon Bell PA-C - 02/21/2024 10:02 PM EST Associated Problem(s): 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 ([facility]) BP slightly elevated today, will continue to monitor for now * Assessment & Plan Note - Yon Bell PA-C - 02/21/2024 10:02 PM EST Associated Problem(s): Coronary artery disease involving crow coronary artery of crow heart without angina pectoris Follows with cardiology S/p inferior wall DE * Assessment & Plan Note - Yon Bell PA-C - 02/21/2024 10:02 PM EST Associated Problem(s): Age-related osteoporosis without current pathological fracture Vitamin D * Assessment & Plan Note - Yon Bell PA-C - 02/21/2024 10:02 PM EST Associated Problem(s): Dyslipidemia, goal LDL below 100 Continue statin * Assessment & Plan Note - Yon Bell PA-C - 02/21/2024 10:02 PM EST Associated Problem(s): HFrEF (heart failure with reduced ejection fraction) ([facility]) Euvolemic today Not on diuretic No longer on jason/arb due to angioedema * Assessment & Plan Note - Yon Bell PA-C - 02/21/2024 10:02 PM EST Associated Problem(s): Disorder of parathyroid gland (HCC) S/p parathyroidectomy * Assessment & Plan Note - Yon Bell PA-C - 02/21/2024 10:02 PM EST Associated Problem(s): Hypothyroidism Continue synthroid documented in this encounter Plan of Treatment Upcoming Encounters Date Type Department Care Team (Late st Contact Info) Description 03/02/2024 12:30 PM EST Home Visit [facility] [address] [place] [address] Christ Early, DIANNA [address] [facility] [place] [address] 04/12/2024 10:30 AM EST Office Visit Cardiology, [facility] [address] [place] [address] Shaquille Le DO [address] [place] [phone] 06/22/2024 10:00 AM EDT Imaging Radiology [address] [place] [address] 06/22/2024 11:00 AM EDT Imaging Radiology [address] [place] [address] 06/29/2024 10:30 AM EDT Office Visit Vascular Surgery, [facility] [address] [place] [address] Saul Crenshaw MD [address] [facility] [place] [address] 08/11/2024 10:20 AM EDT Office Visit [facility] [address] [place] [address] Gabi Vinson CRNP [address] [place] [address] 11/15/2024 10:20 AM EDT Office Visit [facility] [address] [place] [address] Edgardo Sánchez DO [address] [place] [address] Health Maintenance Due Date Last Done Comments Adult Wellness Visit 2002 *BISPHONATE OR OTHER ACCEPTABLE MEDICATION NEEDED FOR OSTEOPOROSIS (REFER TO SMARTSET #1146) 05/11/2020 Diabetic Foot Exam 06/04/2023 06/03/2022 COVID-19 Vaccine ( season) 2023 CKD PHOS USE SMARTSET 37580 01/15/202412/18, 06/03/2021, 04/24/2021, Additional history exists HbA1c 05/10/2024 11/11/2023, 12/18, 01/20/2022, Additional history exists TSH 11/10/2024 11/11/2023, 08/18, 01/14/2023, Additional history exists Albumin/Creatinine Ratio 11/15/2024 024, 01/16/2023, 06/03/2021, Additional history exists O2 ASSESSMENT COMPLETED IN PAST YEAR FOR COPD 11/26/2024 11/27/2023 CKD HGB USE SMARTSET 75540 11/27/202411/27, 11/27/2023, 11/16/2023, Additional history exists Depression Screening 11/30/2024 12/01/2023, 11/11/19 24 Diabetic Eye Exam 12/28/2024 12/29/2023, , 01/29/2000 DTap/Tdap Vaccines (3 - Td or Tdap) 06/09/2032 06/09/2022, 09/15/2011, 01/16/1994 VITAMIN D LEVEL ONCE IN A LIFETIME-USE SMARTSET# 09056 Completed 03/29/2012, 10/24/2008 Pneumococcal Vaccine: 50+ Years [...] this encounter Medical Devices Implanted Type Area Irrigation Flume Layer Device Identifier Shelf Expiration Date Model / Serial / Lot Lens Intraoc 19.0 - [id number] - [id number] Implanted:Qty: 1 on 06/18/2021 by Gilmer Davalos MD at OR [facility] Right: Eye [employer] 02/15/2026 [id number] / [id number] Plug Vasc Ampl 12mm 9-Plug-012 - [id number] Implanted:Qty: 1 on 11/27/2023 by Saul Crenshaw MD at [place] [facility] Right: Iliac [employer] [id number] 2027 9-PLUG-01 [id number] 11mm X 10cm X 120cm Viabahn Endoprosthesis Stent Graft, With Heparin Bioactive Surface Implanted:Qty: 1 on 11/27/2023 by Saul Crenshaw MD at [facility] Right: Iliac [employer] [id number] 07/19/2026 [id number] / [id number] / [id number] Graft Abdominal 32x14.4tuf92qu Stent Control Trunk Ipsilateral System Leg Aortic Aneurysm Conformable Endoprosthesis With Active Excluder Aaa - [id number] Implanted:Qty: 1 on 11/27/2023 by Saul Crenshaw MD at OR [facility] N/A: Aorta [employer] [id number] 07/14/2026 [id number] / [id number] Grft Excldr 98jxe07.5cm - [id number] Implanted:Qty: 1 on 11/27/2023 by Saul Crenshaw MD at OR [facility] Left: Iliac [employer] 12/03/2025 [id number] / [id number] / [id number] Graft Excludr [id number] - [id number] Implanted:Qty: 1 on 11/27/2023 by Saul Crenshaw MD at OR [facility] Right: Iliac [employer] [id number] 07/29/2026 [id number] / [id number] / [id number] documented as of this encounter Visit Diagnoses Diagnosis Infrarenal abdominal aortic aneurysm (AAA) without rupture ([facility])- Primary H/O endovascular stent graft for abdominal aortic aneurysm Blood vessel replaced by other means Coronary artery disease involving crow coronary artery of crow heart without angina pectoris 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 ([facility]) Advanced care planning/counseling discussion Other specified counseling COPD, group A, by GOLD 2017 classification ([facility])- Primary Paroxysmal atrial fibrillation (HCC) Atrial fibrillation Type 2 diabetes mellitus with stage 3b chronic kidney disease, without long-term current use of insulin ([facility]) 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) Coronary artery disease involving crow coronary artery of crow heart without angina pectoris Age-related osteoporosis without current pathological fracture Senile osteoporosis Dyslipidemia, goal LDL below 100 Other and unspecified hyperlipidemia HFrEF (heart failure with reduced ejection fraction) ([facility]) Disorder of parathyroid gland (HCC) Unspecified disorder of parathyroid gland Hypothyroidism, unspecified type documented in this encounter Advance Directives * Full Code (Latest Code Status on File) Date Activated Date Inactivated Comments 11/27/2023 11:28 AM 11/28/2023 7:06 PM This orde r reflects the patients wishes and were consensually agreed upon. Question Answer Comments Discussion of Advance Direct matt occurred with: Not Discussed due to patient's condition Care Teams Medical Assistant Ob Gyn Relationship Specialty Start Date End Date Edgardo Sánchez DO [address] [place] [address] PCP - General Family Medicine 03/09/19 documented as of this encounter
--- OUTSIDE RECORDS SUMMARY | 2024-04-03 21:55 | External Medical Summary | Summary of Care ---
Author Name Unknown Organization [facility] Address [address] [place] [address] Phone [phone] Care Team Providers Care Plate Glass Polisher Name Role Phone Edgardo Sánchez Primary Care Provider Reason for Visit * Reason Onset Date Comments Appointment 01/05/2024 Encounter Details Date Type Department Care Team (Late st Contact Info) Description 01/05/2024 Telephone [facility], [place] [address] [place] [id number] Mendoza Berry, JEANNETTE [address], [place] [id number] Appointment Allergies Active Allergy Reactions Criticality Noted [...] group A, by GOLD 2017 classification (FORMERLY [facility]),COPD exacerbation (HCC) Inhale 2 Puffs by mouth every 6 hours as needed for Shortness of Breath. 6.7 g 3 4 10:57 AM EST 12/29/19 24 Active Fluticasone-Umeclid in-Vilant 100-62.5-25 MCG/ACT Aerosol Powder Breath Activated (Trelegy Ellipta)Indications :COPD, group A, by GOLD 2017 classification ([facility]),COPD exacerbation (HCC) Inhale 1 Puff by mouth [...] fracture 05/09/2020 Coronary artery disease invo lving [place] coronary artery of [place] heart without angina pectoris 05/09/2020 Overview (12/16/2023): [...] Overview: Per COPD GOLD Classification History of [place] (myocardial infarction) 07/11/2016 Abdominal aortic aneurysm (AAA) [...] encounter Miscellaneous Notes * Telephone Encounter - Mendoza Berry OSA - 01/05/2024 10:04 AM EST Request from Call Offs - rescheduled February 03 home visit with Yon Bell to February 17 at 11 am. Spoke with patient and confirmed. documented in this encounter Plan of Treatment Upcoming Encounters Date Type Department Care Team (Late st Contact Info) Description 01/05/2024 2:30 PM EST Home Visit [facility] at [facility] [address] [address] Christ Early, RN [address] [address] 02/18/2024 11:00 AM EST Home Visit [facility], [facility] [address] [place] [address] Yon Bell PA-C [address] [place] [address] 04/12/2024 10:30 AM EST Office Visit Cardiology, [facility] [address] [place] [address] Shaquille Le, DO [address] [place] [address] 06/22/2024 10:00 AM EDT Imaging Radiology [address] [place] [address] 06/22/2024 11:00 AM EDT Imaging Radiology [address], [place] [address] [place] [address] 06/29/2024 10:30 AM EDT Office Visit Vascular Surgery, [facility] [address] [place] [address] Saul Crenshaw MD [address] [place] [address] 08/11/2024 10:20 AM EDT Office Visit Family Practice [facility] [address] [place] [address] Gabi Vinson CRNP [address] [place] [address] 11/15/2024 10:20 AM EDT Office Visit Family Practice [facility] [address] [place] [address] Edgardo Sánchez, [address] [place] [address] Health Maintenance Due Date Last Done Comments Adult Wellness Visit 2002 *BISPHONATE OR OTHER ACCEPTABLE MEDICATION NEEDED FOR OSTEOPOROSIS (REFER TO SMARTSET #1146) 05/11/2020 Diabetic Foot Exam 06/04/2023 06/03/2022 COVID-19 Vaccine ( season) 2023 CKD PHOS USE SMARTSET 70127 01/15/202412/18, 06/03/2021, 04/24/2021, Additional history exists HbA1c 05/10/2024 11/11/2023, 12/18, 01/20/2022, Additional history exists TSH 11/10/2024 11/11/2023, 08/18, 01/14/2023, Additional history exists Albumin/Creatinine Ratio 11/15/2024 024, 01/16/2023, 06/03/2021, Additional history exists O2 ASSESSMENT COMPLETED IN PAST YEAR FOR COPD 11/26/2024 11/27/2023 CKD HGB USE SMARTSET 61730 11/27/202411/27, 11/27/2023, 11/16/2023, Additional history exists Depression Screening 11/30/2024 12/01/2023, 11/11/19 Diabetic Eye Exam 12/28/2024 12/29/2023, , 01/29/2000 DTap/Tdap Vaccines (3 - Td or Tdap) 06/09/2032 06/09/2022, 09/15/2011, 01/16/1994 VITAMIN D LEVEL ONCE IN A LIFETIME-USE SMARTSET# 96512 Completed 03/29/2012, 10/24/2008 Pneumococcal Vaccine: 65+ Years [...] this encounter Medical Devices Implanted Type Area Delivery Helper Device Identifier Shelf Expiration Date Model / Serial / Lot Lens Intraoc 19.0 - [id number] - [id number] Implanted:Qty: 1 on 06/18/2021 by Gilmer Davalos MD at OR [facility] [address] Right: Eye [employer] 02/15/2026 [id number] / [id number] Plug Vasc Ampl 12mm 9-Plug-012 - [id number] Implanted:Qty: 1 on 11/27/2023 by Saul Crenshaw MD at OR [facility] Right: Iliac [employer] [id number] 2027 9-PLUG-01 [id number] 11mm X 10cm X 120cm Viabahn Endoprosthesis Stent Graft, With Heparin Bioactive Surface Implanted:Qty: 1 on 11/27/2023 by Saul Crenshaw MD at OR [facility] Right: Iliac [employer] [id number] 07/19/2026 [id number] / [id number] / [id number] Graft Abdominal 32x14.3bcp84mx Stent Control Trunk Ipsilateral System Leg Aortic Aneurysm Conformable Endoprosthesis With Active Excluder Aaa - [id number] Implanted:Qty: 1 on 11/27/2023 by Saul Crenshaw MD at OR [facility] N/A: Aorta [employer] [id number] 07/14/2026 [id number] / / [id number] Grft Excldr 01xlk85.5cm - [id number] Implanted:Qty: 1 on 11/27/2023 by Saul Crenshaw MD at OR [facility] Left: Iliac [employer] 12/03/2025 [id number] / [id number] / [id number] Graft Excludr [id number] - [id number] Implanted:Qty: 1 on 11/27/2023 by Saul Crenshaw MD at OR [facility] Right: [facility] [employer] [facility] [id number] 07/29/2026 [id number] / [id number] / [id number] documented as of this encounter Advance Directives * Full Code (Latest Code Status on File) Date Activated Date Inactivated Comments 11/27/2023 11:28 AM 11/28/2023 7:06 PM This orde r reflects the patients wishes and were consensually agreed upon. Question Answer Comments Discussion of Advance Direct matt occurred with: Not Discussed due to patient's condition Care Teams Plate Glass Polisher Relationship Specialty Start Date End Date Edgardo Sánchez DO [address] [id number] PCP - General Family Medicine 03/09/19 documented as of this encounter
--- OUTSIDE RECORDS SUMMARY | 2024-04-03 21:55 | External Medical Summary | Summary of Care ---
Author Name Unknown Organization [facility] Address [address] [place] [address] Phone [phone] Care Team Providers Care Cutter Machine Tender Name Role Phone Edgardo Sánchez DO Primary Care Provider Reason for Visit * Reason Comments Medication Refill Encounter Details Date Type Department Care Team (Late st Contact Info) Description 01/08/2024 Refill Family Practice [facility] [address] [place] [address] Edgardo Sánchez DO [address] [place] [address] COPD, group A, by GOLD 2017 classification [...] ([facility]),COPD exacerbation ([facility]) Inhale 2 Puffs by mouth every 6 hours as needed for Shortness of Breath. 6.7 g 3 4 10:57 AM EST 12/29/19 24 Active Fluticasone-Umeclid in-Vilant 100-62.5-25 MCG/ACT Aerosol Powder Breath Activated (Trelegy Ellipta)Indications :COPD, group A, by GOLD 2017 classification ([facility]),COPD exacerbation ([facility]) Inhale 1 Puff by mouth in the morning. [address] 3 12/29/19 24 Active Incruse Ellipta 62.5 MCG/ACT Inhalation Aerosol Powder Breath Activated (umeclidinium Delevan)Indications :COPD, group A, by GOLD 2017 classification [...] fracture 05/09/2020 Coronary artery disease invo lving [place] coronary artery of [place] heart without angina pectoris 05/09/2020 Overview (12/16/2023): [...] Overview: Per COPD GOLD Classification History of [place] (myocardial infarction) 07/11/2016 Abdominal aortic aneurysm (AAA) [...] No 12/01/2023 Does the household have a [facility] source of income? (Household - for ages [...] encounter Miscellaneous Notes * Telephone Encounter - Silvia Mcclain CPhT - 01/08/2024 3:32 PM ESTNo prescriptions requested or ordered in this encounter documented in this encounter Plan of Treatment Upcoming Encounters Date Type Department Care Team (Late st Contact Info) Description 02/03/2024 2:30 PM EST Home Visit [facility] [place] [address] [place] [address] Christ Early, DIANNA [address] [place] [address] 02/18/2024 11:00 AM EST [facility] Visit [facility], [facility] [address] [address] Yon Bell PA-C [address] [place] [address] 04/12/2024 10:30 AM EST Office Visit Cardiology, [facility] [address] [place] [address] Shaquille Le DO [address] [place] [address] 06/22/2024 10:00 AM EDT Imaging Radiology [address] [place] [address] 06/22/2024 11:00 AM EDT Imaging Radiology [address] [facility] [place] [address] 06/29/2024 10:30 AM EDT Office Visit Vascular Surgery, [facility] [address] [place] [address] Saul Crenshaw MD [address] [facility] [place] [address] 08/11/2024 10:20 AM EDT Office Visit Family Practice [facility] [address] [place] [address] Gabi Vinson CRNP [address] [place] [address] 11/15/2024 10:20 AM EDT Office Visit Family Practice [facility] [address] [place] [address] Edgardo Sánchez DO [address] [place] [address] Health Maintenance Due Date Last Done Comments Adult Wellness Visit 2002 *BISPHONATE OR OTHER ACCEPTABLE MEDICATION NEEDED FOR OSTEOPOROSIS (REFER TO SMARTSET #1146) 05/11/2020 Diabetic Foot Exam 06/04/2023 06/03/2022 COVID-19 Vaccine ( season) 2023 CKD PHOS USE SMARTSET 73376 01/15/202412/18, 06/03/2021, 04/24/2021, Additional history exists HbA1c 05/10/2024 11/11/2023, 12/18, 01/20/2022, Additional history exists TSH 11/10/2024 11/11/2023, 08/18, 01/14/2023, Additional history exists Albumin/Creatinine Ratio 11/15/2024 024, 01/16/2023, 06/03/2021, Additional history exists O2 ASSESSMENT COMPLETED IN PAST YEAR FOR COPD 11/26/2024 11/27/2023 CKD HGB USE SMARTSET 89665 11/27/202411/27, 11/27/2023, 11/16/2023, Additional history exists Depression Screening 11/30/2024 12/01/2023, 11/11/19 24 Diabetic Eye Exam 12/28/2024 12/29/2023, , 01/29/2000 DTap/Tdap Vaccines (3 - Td or Tdap) 06/09/2032 06/09/2022, 09/15/2011, 01/16/1994 VITAMIN D LEVEL ONCE IN A LIFETIME-USE SMARTSET# 07498 Completed 03/29/2012, 10/24/2008 Pneumococcal Vaccine: 65+ Years [...] this encounter Medical Devices Implanted Type Area Under Ground Miner Device Identifier Shelf Expiration Date Model / Serial / Lot Lens Intraoc 19.0 - [id number] - [id number] Implanted:Qty: 1 on 06/18/2021 by Gilmer Davalos MD at OR [facility] Right: Eye [employer] 02/15/2026 [id number] / [id number] Plug Vasc Ampl 12mm 9-Plug-012 - [id number] Implanted:Qty: 1 on 11/27/2023 by Saul Crenshaw MD [place] [facility] Right: Iliac [employer] [id number] 2027 9-PLUG-01 [id number] 11mm X 10cm X 120cm Viabahn Endoprosthesis Stent Graft, With Heparin Bioactive Surface Implanted:Qty: 1 on 11/27/2023 by Saul Crenshaw MD [place] [facility] Right: Iliac [employer] [id number] 07/19/2026 [id number] / [id number] / [id number] Graft Abdominal 32x14.3iqh85si Stent Control Trunk Ipsilateral System Leg Aortic Aneurysm Conformable Endoprosthesis With Active Excluder Aaa - [id number] Implanted:Qty: 1 on 11/27/2023 by Saul Crenshaw MD [place] [facility] N/A: Aorta [employer] [id number] 07/14/2026 [id number] / / [id number] Grft Excldr 66upr68.5cm - [id number] Implanted:Qty: 1 on 11/27/2023 by Saul Crenshaw MD at [place] [facility] Left: Iliac [employer] 12/03/2025 [id number] / [id number] / [id number] Graft Excludr [id number] - [id number] Implanted:Qty: 1 on 11/27/2023 by Saul Crenshaw MD at [place] [facility] Right: Iliac [employer] [id number] 07/29/2026 [id number] / [id number] / [id number] documented as of this encounter Visit Diagnoses Diagnosis Infrarenal abdominal aortic aneurysm (AAA) without rupture (HCC)- Primary H/O endovascular stent graft for abdominal aortic aneurysm Blood vessel replaced by other means Coronary artery disease involving [place] coronary artery of [place] heart without angina pectoris 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) Advanced care planning/counseling discussion Other specified counseling COPD, group A, by GOLD 2017 classification ([facility]) documented in this encounter Advance Directives * Full Code (Latest Code Status on File) Date Activated Date Inactivated Comments 11/27/2023 11:28 AM 11/28/2023 7:06 PM This orde r reflects the patients wishes and were consensually agreed upon. Question Answer Comments Discussion of Advance Direct matt occurred with: Not Discussed due to patient's condition Care Teams Cutter Machine Tender Relationship Specialty Start Date End Date Edgardo Sánchez DO [address] [place] [address] PCP - General Family Medicine 03/09/19 documented as of this encounter
--- OUTSIDE RECORDS SUMMARY | 2024-04-03 21:55 | External Medical Summary | Summary of Care ---
Author Name Unknown Organization [facility] Address [address] [place] [address] Phone [phone] Care Team Providers Care Country Manager Name Role Phone Edgardo Sánchez Primary Care Provider Reason for Visit * Reason Onset Date Comments STAIR AAA 12/31/2023 Encounter Details Date Type Department Care Team (Late st Contact Info) Description 12/31/2023 Telephone STAIR AAA [address] [place] [address] Program, Stair [address] [place] [address] STAIR AAA Allergies Active Allergy Reactions Criticality Noted Date Comments Jason Inhibitors Edema face/lips/tongue High 4 angioedema Latex 07/21/2016 Pt states he breaks out from this documented as of this encounter (statuses as of 12/31/2023) Medications ASPIRIN 81 MG PO TABSIndications:Cor onary [...] A, by GOLD 2017 classification ([facility]),COPD exacerbation (HCC) Inhale 2 Puffs by mouth every 6 hours as needed for Shortness of Breath. 6.7 g 3 4 10:57 AM EST 12/29/19 24 Active Fluticasone-Umeclid in-Vilant 100-62.5-25 MCG/ACT Aerosol Powder Breath Activated (Trelegy Ellipta)Indications :COPD, group A, by GOLD 2017 classification ([facility]),COPD exacerbation (HCC) Inhale 1 Puff by mouth in the morning. 180 Blister Dosing Unit 3 12/29/19 24 Active documented as of this encounter (statuses as of 12/31/2023) Active Problems Problem Noted Date Diagnosed Date [...] fracture 05/09/2020 Coronary artery disease invo lving [place] coronary artery of [place] heart without angina pectoris 05/09/2020 Overview (12/16/2023): [...] Overview: Per COPD GOLD Classification History of HI (myocardial infarction) 07/11/2016 Abdominal aortic aneurysm (AAA) without rupture 05/09/2016 Paroxysmal atrial fibrillation 05/09/2016 Beta-blockers contraindicated 11/13/2011 HTN, goal below 140/90 09/15/2011 Hypothyroidism due to medication 05/29/2010 DYSLIPIDEMIA, GOAL LDL BELOW 100 01/25/2009 Overview (01/25/2009): Per Lipid Taxonomy. CHR ISCHEMIC HRT DIS NOS 03/31/2002 Overview (03/17/2012): Vivek documented as of this encounter (statuses as of 12/31/2023) Resolved Problems Problem Noted Date Diagnosed Date [...] as of this encounter (statuses as of 12/31/2023) Immunizations Name Administration Dates Next Due H1N1 [...] No 12/01/2023 Does the household have a [facility] income? (Household - for ages [...] encounter Miscellaneous Notes * Telephone Encounter - Trudi Medina LPN - 12/31/2023 10:17 AM EST AAA - Clinical Summary Name: Nitin Pickett Age: [age] year old AAA Review: Follow-up Follow-up Encounter Provider: Saul Crenshaw MD Patient Identified by: Problem List Report Imaging Interpretation: CTA Type of Result: SP EVAR AAA Care Plan Imaging Recommendation: CTA - details below Details: Abdomen/Pelvis in 6 months AAA Care Plan Visit Recommendation: Return visit in Vascular Surgery Details: in 6 months Next steps: No action needed at this time. Patient was seen by vascular surgery yesterday. Next clinic visit with testing prior is already scheduled. Will continue to track. Time spent: 10 minutes Trudi Medina LPN Coordinator STAIR (System to Track Abnormalities of Importance Reliably) CTA ABD/PELVIS 12/23/2023 Narrative EXAM EXAM: CTA ABD/PELVIS DATE and TIME: 12/23/2023 9:49 am HISTORY CLINICAL INFORMATION: S/P repair AAA TECHNIQUE High resolution helical ct of the abdomen, and pelvis was performed after the intravenous administration of 80 mL Isovue 370. Images were obtained in the arterial and delayed phases. Advanced 3d reconstructions of the aorta and its branch vessels were performed for optimal vascularevaluation on a separate work station. COMPARISON CT chest abdomen pelvis 09/24/2023 FINDINGS ANGIOGRAPHIC FINDINGS: ABDOMINAL AORTA: Interval EVAR repair of a infrarenal abdominal aortic aneurysm, with graft limbs extending into the distal right external iliac artery and distal left common iliac artery. The aneurysm sac measures 5.0 x 5.6 cm in greatest dimension (series 4, image 182) At the 6 o'clock position of the left iliac limb within the distal abdominal aorta (series 4, ) there is a streak of arterial contrast extending into the posterior aspect of the aneurysm sacwith a subtle graft discontinuity noted on series 6, image 385. Additional area extra-stent arterial contrast layering posterior to the left common iliac limb (series 4, image 250), in close proximity to the distal end of the stent. RENAL ARTERIES: Duplicated right renal artery. The superior right renal artery is patent. There isfocal occlusion of the proximal portion of the inferior right renal artery whose origin is at the level of the EVAR. Single patent left renal artery. CELIAC ARTERY: Patent SUPERIOR MESENTERIC ARTERY: Patent INFERIOR MESENTERIC ARTERY: Proximally occluded RIGHT COMMON ILIAC ARTERY: Patent, stented. RIGHT EXTERNAL ILIAC ARTERY: Patent, stented. RIGHT INTERNAL ILIAC ARTERY: Proximally occluded with a plug. RIGHT COMMON FEMORAL ARTERY: Patent LEFT COMMON ILIAC ARTERY: Patent, stented LEFT EXTERNAL ILIAC ARTERY: Patent LEFT INTERNAL ILIAC ARTERY: Short segment proximal occlusion. LEFT COMMON FEMORAL ARTERY: Patent NON ANGIOGRAPHIC FINDINGS: LOWER CHEST: ABDOMEN/PELVIS: LIVER: Unremarkable BILE DUCTS: Unremarkable GALLBLADDER: Cholelithiasis PANCREAS: Diffuse pancreatic atrophy of the head and body SPLEEN: Unremarkable ADRENALS: Unremarkable KIDNEYS/URETERS: Bilateral renal atrophy with parapelvic cysts. BLADDER: Unremarkable BOWEL: Unremarkable LYMPH NODES: Unremarkable VESSELS: Unremarkable REPRODUCTIVE ORGANS: Unremarkable PERITONEUM/RETROPERITONEUM: Left larger than right fat containing inguinal hernias. ABDOMINAL WALL/SOFT TISSUES: Unremarkable BONES: Unremarkable Impression IMPRESSION 1. Interval EVAR repair of a infrarenal abdominal aortic aneurysm. 2. Small area of extra-stent arterial contrast layering posterior to the left common iliac limb, inclose proximity to the distal end of the stent. 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 3. 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 4. 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 Impression was communicated with Noel Vargas MD via [employer] on 12/25/2023 at 7:44 PM. documented in this encounter Plan of Treatment Upcoming Encounters Date Type Department Care Team (Late st Contact Info) Description 01/04/2024 2:30 PM EST [facility] Visit [facility] [address] [address] Christ Early, DIANNA [address] [place] [address] 02/04/2024 9:00 AM EST Home Visit [facility] [address] [address] Yon Bell PA-C [address] [place] [address] 04/12/2024 10:30 AM EST Office Visit Cardiology, [facility] [address] [address] Shaquille Le DO [address] [place] [address] 06/22/2024 10:00 AM EDT Imaging Radiology [address] [place] [address] 06/22/2024 11:00 AM EDT Imaging Radiology [facility] [place] [address] [facility] [place] [address] 06/29/2024 10:30 AM EDT Office Visit Vascular Surgery, [facility] [address] [place] [address] Saul Crenshaw MD [address] [place] [address] 08/11/2024 10:20 AM EDT Office Visit [facility] [address] [place] [address] Gabi Vinson CRNP [address] [place] [address] 11/15/2024 10:20 AM EDT Office Visit [facility] [address] [place] [address] Edgardo Sánchez DO [address] [facility] [place] [address] Health Maintenance Due Date Last Done Comments Adult Wellness Visit 2002 *BISPHONATE OR OTHER ACCEPTABLE MEDICATION NEEDED FOR OSTEOPOROSIS (REFER TO SMARTSET #1146) 05/11/2020 Diabetic Foot Exam 06/04/2023 06/03/2022 COVID-19 Vaccine ( season) 2023 CKD PHOS USE SMARTSET 20437 01/15/202412/18, 06/03/2021, 04/24/2021, Additional history exists HbA1c 05/10/2024 11/11/2023, 12/18, 01/20/2022, Additional history exists TSH 11/10/2024 11/11/2023, 08/18, 01/14/2023, Additional history exists Albumin/Creatinine Ratio 11/15/2024 024, 01/16/2023, 06/03/2021, Additional history exists O2 ASSESSMENT COMPLETED IN PAST YEAR FOR COPD 11/26/2024 11/27/2023 CKD HGB USE SMARTSET 60554 11/27/202411/27, 11/27/2023, 11/16/2023, Additional history exists Depression Screening 11/30/2024 12/01/2023, 11/11/19 Diabetic Eye Exam 12/28/2024 12/29/2023, , 01/29/2000 DTap/Tdap Vaccines (3 - Td or Tdap) 06/09/2032 06/09/2022, 09/15/2011, 01/16/1994 VITAMIN D LEVEL ONCE IN A LIFETIME-USE SMARTSET# 73499 Completed 03/29/2012, 10/24/2008 Pneumococcal Vaccine: 65+ Years [...] this encounter Medical Devices Implanted Type Area Electric Cell Tender Device Identifier Shelf Expiration Date Model / Serial / Lot Lens Intraoc 19.0 - [id number] - [id number] Implanted:Qty: 1 on 06/18/2021 by Gilmer Davalos MD at OR [facility] Right: Eye [employer] 02/15/2026 [id number] / [id number] Plug Vasc Ampl 12mm 9-Plug-012 - [id number] Implanted:Qty: 1 on 11/27/2023 by Saul Crenshaw MD at OR [facility] Right: Iliac [employer] [id number] 2027 9-PLUG-01 [id number] 11mm X 10cm X 120cm Viabahn Endoprosthesis Stent Graft, With Heparin Bioactive Surface Implanted:Qty: 1 on 11/27/2023 by Saul Crenshaw MD at OR [facility] Right: Iliac [employer] [id number] 07/19/2026 [id number] / [id number] / [id number] Graft Abdominal 32x14.6wdd56mn Stent Control Trunk Ipsilateral System Leg Aortic Aneurysm Conformable Endoprosthesis With Active Excluder Aaa - [id number] Implanted:Qty: 1 on 11/27/2023 by Saul Crenshaw MD at OR [facility] N/A: Aorta [employer] [id number] 07/14/2026 [id number] / / [id number] Grft Excldr 42qaw91.5cm - [id number] Implanted:Qty: 1 on 11/27/2023 by Saul Crenshaw MD at OR [facility] Left: Iliac [employer] 12/03/2025 [id number] / [id number] / [id number] Graft Excludr [id number] - [id number] Implanted:Qty: 1 on 11/27/2023 by Saul Crenshaw MD at OR [facility] Right: Iliac [employer] [id number] 07/29/2026 [id number] / [id number] / [id number] documented as of this encounter Advance Directives * Full Code (Latest Code Status on File) Date Activated Date Inactivated Comments 11/27/2023 11:28 AM 11/28/2023 7:06 PM This orde r reflects the patients wishes and were consensually agreed upon. Question Answer Comments Discussion of Advance Direct matt occurred with: Not Discussed due to patient's condition Care Teams Country Manager Relationship Specialty Start Date End Date Edgardo Sánchez DO [address] [place] [address] PCP - General Family Medicine 03/09/19 documented as of this encounter
--- OUTSIDE RECORDS SUMMARY | 2024-04-03 21:56 | External Medical Summary | Summary of Care ---
Author Name Unknown Organization [facility] Address [address] [place] [address] Phone [phone] Care Team Providers Care Eyelet Punch Operator Name Role Phone Sánchez Edgardo Marshallmariel Primary Care Provider Encounter Details Date Type Department Care Team (Late st Contact Info) Description 12/16/2023 9:40 AM EDT Home Visit [facility], [facility] [address] [facility] [place] [address] Shana Nava PA-C [address] [facility] [place] [address] Lashanda Putnam, Community Health Biology Lecturer [address] [place], [place] [id number] Infrarenal abdominal aortic aneurysm (AAA) without rupture (HCC)*; H/O endovascular stent graft for abdominal aortic aneurysm; Coronary artery disease involving [place] coronary artery of [place] heart without angina pectoris; 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); Advanced care planning/counseling discussion Allergies Active Allergy Reactions Criticality Noted Date Comments Jason Inhibitors Edema face/lips/tongue High 4 angioedema Latex 07/21/2016 Pt states he breaks out from this documented as of this encounter (statuses as of 12/16/2023) Medications Medication Sig Dispensed Refills Start Date End Date Status ASPIRIN 81 MG PO TABSIndications:Coron syed atherosclerosis 1 daily 0 0 05/17/2007 Active VITAMIN D 1000 UNIT PO CAPS 1 capsule daily 0 0 12/08/2008 Active Multi-Vitamins Oral Tablet Take 1 Tablet by mouth in the morning. Active Albuterol Sulfate HFA 108 (90 Base) MCG/ACT Inhalation Aerosol SolutionIndications:C OPD exacerbation ([facility]) Inhale 2 Puffs by mouth every 6 hours as needed for Shortness of Breath. 18 g 3 11/21/2020 Active Additional Information Patient not taking.Reported on 12/01/2023 Diclofenac Sodium 1 % External Gel (Voltaren)Indications :Osteoarthritis of left knee, unspecified osteoarthritis type Apply 4 g topically to affected area 3 times a day as needed for Pain, Moderate. Apply to the affected knee as needed. 1100 g 5 01/09/2023 Active Additional Information Patient not taking.Reported on 11/27/2023 Levothyroxine Sodium 100 MCG Oral Tablet (Levoxyl)Indications: Hypothyroidism due to acquired atrophy of thyroid TAKE ONE TABLET BY MOUTH DAILY AT LEAST 30 MINUTES PRIOR TO FIRST MEAL OF THE DAY OR OTHER MEDS 100 Tablet 3 03/12/2023 5 Active Atorvastatin Calcium 80 MG Oral Tablet (Lipitor)Indications: Dyslipidemia, goal LDL below 100 TAKE ONE TABLET BY MOUTH EVERY MORNING 100 Tablet 3 03/16/2023 Active Amiodarone HCl 200 MG Oral Tablet (Cordarone)Indication s:Paroxysmal atrial fibrillation (HCC) TAKE ONE TABLET BY MOUTH EVERY MORNING 100 Tablet 3 07/21/2023 5 Active Fluticasone-Salmetero l 500-50 MCG/ACT Inhalation Aerosol Powder Breath Activated (Advair Diskus)Indications:CO PD, group A, by GOLD 2017 classification ([facility]) INHALE ONE PUFF BY MOUTH TWICE A DAY IN THE MORNING AND BEFORE BEDTIME 180 Each 11/16/2023 Active oxyCODONE HCl 5 MG Oral Tablet (Oxy IR) Take 1 Tablet by mouth every 4 hours as needed for severe pain for up to 10 doses. 10 Tablet 11/28/2023 Active Additional Information Patient not taking.Reported on 12/01/2023 Clopidogrel Bisulfate 75 MG Oral Tablet (pLAVix) Take 1 Tablet by mouth in the morning. 90 Tablet 1 11/29/2023 Active Tamsulosin HCl 0.4 MG Oral Capsule (Flomax) Take 1 Capsule by mouth in the morning. 30 Capsule 11/29/2023 Active Incruse Ellipta 62.5 MCG/ACT Inhalation Aerosol Powder Breath Activated (umeclidinium [place])Indications:C OPD, group A, by GOLD 2017 classification (HCC) Inhale 1 Puff by mouth in the morning. 90 Each 12/02/2023 Active documented as of this encounter (statuses as of 12/16/2023) Active Problems Problem Noted Date Diagnosed Date H/O endovascular stent graft for abdominal aorti c aneurysm 12/09/2023 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 05/25/2023 Overview: Per CKD protocol Last Assessment & Plan: Current CKD Stage: Stage III "RED FLAG" symptoms: NO IDENTIFIED SYMPTOMS CKD Complications: CAD HTN Additional Comments Recently d/c lisinopril due to angioedema BP stable today Chronic kidney disease, stage 3b 05/25/2023 Overview: Per CKD protocol Type 2 diabetes mellitus wit h stage 3b chronic kidney disease 05/25/2023 Overview: Per CKD protocol Infrarenal abdominal aortic aneurysm (AAA) witho ut rupture 12/18/2021 Overview: 11/27/23- S/P repair of asymptomatic 6.0 cm [...] fracture 05/09/2020 Coronary artery disease invo lving [place] coronary artery of [place] heart without angina pectoris 05/09/2020 Overview: Nuclear stress 09/04/2023: Interpretation Summary The LV ejection fraction is calculated at 59%. This pharmacologic nuclear stress trest reveals an infarct of the inferior and inferior lateral myocardium and no active ischemia. These findings are most consistent with the Right Coronary or Left Circumflex arteries. No prior studies for comparison. Last Assessment & Plan: Continue statin COPD, group A, by GOLD 2017 classification 11/27 Overview: Per COPD GOLD Classification History of UT (myocardial infarction) 07/11/2016 Abdominal aortic aneurysm (AAA) without rupture 05/09/2016 Paroxysmal atrial fibrillation 05/09/2016 Beta-blockers contraindicated 11/13/2011 HTN, goal below 140/90 09/15/2011 Hypothyroidism due to medication 05/29/2010 DYSLIPIDEMIA, GOAL LDL BELOW 100 01/25/2009 Overview: Per Lipid Taxonomy. ADVANCE DIRECTIVE INFORMATION 07/29/2004 Overview: Yes, Patient instructed to provide copy of advance directive for provider to review and to be scanned into Electronic Medical Record 08/10/2008 Patient needs to bring an updated copy of Living will since has . Silva Sanabria RN 02/22/2009 Patient has updated it and now needs to bring it in. Silva Sanabria RN CHR ISCHEMIC HRT DIS NOS 03/31/2002 Overview: Vivek documented as of this encounter (statuses as of 12/16/2023) Resolved Problems Problem Noted Date Diagnosed Date [...] Prediabetes protocol History of kidney stones 12/31/2018 Overview: Historical. H/O adenomatous polyp of colon 06/21/2018 07/05/2019 Overview: Historical. Hypertensive kidney disease with chronic kidney disease stage III 06/21/2018 12/29/2019 Overview: Per CKD protocol Hyperparathyroidism, primary 05/12/2016 11/25/2016 COPD, moderate 03/28/2014 12/01/2019 Overview: Per COPD GOLD Classification Kidney disease, chronic, sta ge III (GFR 30-59 ml/min) 04/11/2013 06/30/2018 Overview: Per CKD protocol #[address] Patel 03/31/2011 Carotid stenosis, non-symptomatic 08/03/2008 11/11/2021 Overview: Modified per Carotid Stenosis protocol #10 Benign neoplasm of colon 04/19/200707/2018 Overview: adenomatous repeat colonoscopy in 3 yrs Carotid Stenosis, non-symptomatic 04/29/2005 08/03/2008 Overview: Modified per Carotid Stenosis protocol #10 hx of pneumonectomy 03/14/2000 07/05/19 20 Overview: Historical. Calculus of kidney 9 ACUTE MYOCARDIAL INFARCTION; OTHER ANTERIOR WALL,EPISODE CARE UNSPECIFIED 07/11/2016 Dermatophytosis of nail 11/17 Mixed dyslipidemia 9 Overview: Per Lipid Taxonomy. documented as of this encounter (statuses as of 12/16/2023) Immunizations Name Administration Dates Next Due Diptheria/Tetanus (Adult) 01/16/1994 H1N1 2009 Influenza, IM 01/16/2009 Pneumococcal Conjugate Vacc, 13 Valent (Prevnar) 03/28/2014 Pneumococcal Polysaccharide PPV23 (Pneumovax) 02/03/2005,01/25/1997,02/17/1989 Seasonal Influenza Vac., MDV , IM, 0.5 mL (Fluzone) 11/13/2014,11/16/2012,11/17/2011,11/07,11/07/2009,11/02/2008,11/26/2007 ,11/23/2006,12/02/2005,11/20/2004,11/16,12/07/2002,12/01/2001, 1,12/30/1999,12/07/1998 Seasonal Influenza Virus Vac cine, Unspecified Formulation 11/21/2019,12/17/2016,12/08/1996 Seasonal Influenza, High Dos e, Trivalent, PF, IM (Fluzone HD) 11/09/2021 Seasonal Influenza, PF, 6 M & above, IM , (FluLaval or Fluzone) 11/16/2022 Seasonal Influenza, Quadriva lent, No Preserve, IM 11/19/2020,11/22/2018,12/17/2017,12/18,01/07/2016 TDAP (age 10 and older)(Boostrix) 06/09/2022, Varicella [...] Assigned at Male 10/12/2019 8:18 AM EDT Gender Identity Male 10/12/2019 8:18 AM EDT Sexual Orientation Straight 10/12/2019 8: 18 AM EDT Job Start Date Occupation Industry Not on file Not on file Not on file documented as of this encounter Last Filed Vital Signs Vital Sign Reading Time Taken Comments Blood Pressure 118/60 12/16/2023 9:54 AM EDT Pulse 67 12/16/2023 9:54 AM EDT Temperature 36.6 C (97.8 F) 12/16/2023 9:54 AM ED T Respiratory Rate - - Oxygen Saturation 97% 12/16/2023 9:54 AM EDT Inhaled Oxygen Concentration - - Weight - - Height - - Body Mass Index - - documented in this encounter Progress Notes * Shana Nava PA-C - 12/16/2023 10:05 AM EDT Images from the original note were not included. [facility] Problem Oriented Charting Provider Visit Date: 12/16/2023 Time: 10:05 AM Assessment and Plan #1 Infrarenal abdominal aortic aneurysm (AAA) without rupture (HCC) (Primary) Overview: 11/27/23- S/P repair of asymptomatic 6.0 cm AAA with EVAR, RCIA extension graft, coil embolization of RIIA and viabahn stent into REIA by Dr. Crenshaw #2 H/O endovascular stent graft for abdominal aortic aneurysm #3 Coronary artery disease involving [place] coronary artery of [place] heart without angina pectoris Overview: Nuclear stress 09/04/2023: Interpretation Summary The LV ejection fraction is calculated at 59%. This pharmacologic nuclear stress trest reveals an infarct of the inferior and inferior lateral myocardium and no active ischemia. These findings are most consistent with the Right Coronary or Left Circumflex arteries. No prior studies for comparison. Assessment & Plan: Continue statin #4 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) Overview: Per CKD protocol Assessment & Plan: Current CKD Stage: Stage III "RED FLAG" symptoms: NO IDENTIFIED SYMPTOMS CKD Complications: CAD HTN Additional Comments Recently d/c lisinopril due to angioedema BP stable today #5 Advanced care planning/counseling discussion Additional Medical Decision Making: Patient lives alone, 2 story home Reports independent with all ADLs/IADLs Manages own medications Continues to drive Family is supportive, reports daughter is RN Continues to follow with PCP, vascular surg, cardiology LW/POA reviewed, health care agent is Alexus (step daughter) Scheduled appointments in the next 60 days: Future Appointments-next 60 days Date/Time Provider Specialty Dept Phone 12/23/2023 10:00 AM CT1 [facility] Radiology [phone] 12/24/2023 10:00 AM Christ Early, [place] [facility] [phone] 12/30/2023 10:10 AM Saul Crenshaw MD Vascular Surgery [phone] 04/12/2024 10:30 AM (Arrive by 10:15 AM) Shaquille Le DO Cardiology [phone] 08/11/2024 10:20 AM (Arrive by 10:05 AM) Gabi Vinson CRNP Family Medicine [phone] 11/15/2024 10:20 AM (Arrive by 10:05 AM) Edgardo Sánchez DO Family Medicine [phone] A total of 25 minutes was spent face to face (via video-based telemedicine if designated as a telemedicine visit) Subjective Subjective Is this a Telemedicine Visit? Yes, Patient location: HOME. I was not in a hospital or clinic location. After connecting through [facility], patient was verified with two unique identifiers. Patient (or authorized legal quality assurance representative) was then informed that this was a Telemedicine visit and being conducted confidentially over secure lines. Methods to assure confidentiality were taken. Patient acknowledged consent and understanding of privacy and security of the Telemedicine visit. The patient agreed to participate. Reason For [facility] Visit: Enrollment Current Concerns: Nitin Pickett is a 88 year old male seen today for a [facility] provider visit. PMH includes COPD, CKD3, HTN, HLD, DM2, osteoporosis, CAD, AAA s/p repair 11/25-11/28/23 - [facility] - AAA repair Today's concerns are: Denies concerns today and reports feeling well overall Had scheduled AAA repair as above Wound vac temporarily to groin incision and was removed last week Continues to follow with vascular surg, stable per recent appt Denies any SOB, does have ongoing VELEZ Denies chest pain, palpitations Denies fever/chills Reports wound is healed, no redness, swelling, or drainage Denies pain at incision site Does have some chronic back pain, only using apap prn Additional I have reviewed the following results: CBC and BMP Current Outpatient Medications Medication Sig Dispense Refill Albuterol Sulfate HFA 108 (90 Base) MCG/ACT Inhalation Aerosol Solution Inhale 2 Puffs by mouth every 6 hours as needed for Shortness of Breath. (Patient not taking: Reported on 12/01/2023) 18 g 3 Amiodarone HCl 200 MG Oral Tablet (Cordarone) TAKE ONE TABLET BY MOUTH EVERY MORNING 100 Tablet 3 ASPIRIN 81 MG PO TABS 1 daily 0 0 Atorvastatin Calcium 80 MG Oral Tablet (Lipitor) TAKE ONE TABLET BY MOUTH EVERY MORNING 100 Tablet 3 Clopidogrel Bisulfate 75 MG Oral Tablet (pLAVix) Take 1 Tablet by mouth in the morning. 90 Tablet 1 Diclofenac Sodium 1 % External Gel (Voltaren) Apply 4 g topically to affected area 3 times a day asneeded for Pain, Moderate. Apply to the affected knee as needed. (Patient not taking: Reported on 11/27/2023) 1100 g 5 Fluticasone-Salmeterol 500-50 MCG/ACT Inhalation Aerosol Powder Breath Activated (Advair Diskus) INHALE ONE PUFF BY MOUTH TWICE A DAY IN THE MORNING AND BEFORE BEDTIME 180 Each 0 Incruse Ellipta 62.5 MCG/ACT Inhalation Aerosol Powder Breath Activated (umeclidinium [place]) Inhale 1 Puff by mouth in the morning. 90 Each 0 Levothyroxine Sodium 100 MCG Oral Tablet (Levoxyl) TAKE ONE TABLET BY MOUTH DAILY AT LEAST 30 MINUTES PRIOR TO FIRST MEAL OF THE DAY OR OTHER MEDS 100 Tablet 3 Multi-Vitamins Oral Tablet Take 1 Tablet by mouth in the morning. oxyCODONE HCl 5 MG Oral Tablet (Oxy IR) Take 1 Tablet by mouth every 4 hours as needed for severe pain for up to 10 doses. (Patient not taking: Reported on 12/01/2023) 10 Tablet 0 Tamsulosin HCl 0.4 MG Oral Capsule (Flomax) Take 1 Capsule by mouth in the morning. 30 Capsule 0 VITAMIN D 1000 UNIT PO CAPS 1 capsule daily 0 0 No current facility-administered medications for this visit. Objective Objective Vitals: 12/16/23 0954 Temp: 36.6 C (97.8 F) Pulse: 67 SpO2: 97% BP: 118/60 Last Weights: Wt Readings from Last 3 Encounters: 12/09/23 83.7 kg (184 lb 9.6 oz) 11/27/23 84.4 kg (186 lb) 11/11/23 86.2 kg (190 lb) Last BPs: BP Readings from Last 4 Encounters: 12/16/23 118/60 12/09/23 122/64 12/01/23 142/82 11/28/23 115/64 General: alert and no distress Neuro: alert & oriented x 3 with fluent speech Heart: regular rate & rhythm and no murmur Lungs: lungs clear to auscultation, no wheeze, no rales, no rhonchi Ext: Normal extremities without edema Shana Nava PA-C 10:05 AM * Lashanda Putnam, Community Health Biology Lecturer - 12/16/2023 10:03 AM EDT Telemedicine visit: Yes Patient location: HOME. I was not in a hospital or clinic location. After connecting through televideo, patient was verified with two unique identifiers. Patient (or authorized legal quality assurance representative) was then informed that this was a Telemedicine visit and being conducted confidentially over secure lines. Methods to assure confidentiality were taken. Patient acknowledged consent and understanding of privacy and security of the Telemedicine visit. The patient agreed to participate. Community Health Biology Lecturer (STEFANO) documentation: CHW facilitated telehealth visit with provider Shana Putnam- Community Health Worker 1 Support Services/[facility] Plan [email or web address] documented in this encounter Miscellaneous Notes * Addendum Note - Shana Nava PA-C - 12/16/2023 12:11 PM EDTAddended by: SHANA NAVA on: 12/16/2023 12:11 PM Modules accepted: Level of Service * ACP (Advance Care Planning) - Shana Nava PA-C - 12/16/2023 12:04 PM EDT Images from the original note were not included. Patient-centered Communication 12/16/2023 The patient/surrogate voluntarily agreed to participate in advance care planning discussion. They were advised that this is a separate service which may incur out of pocket cost in the form of copayment and/or deductibles. Location: Home Individual(s) present for conversation: Patient Decisions Synopsis [employer] Most Recent Value Past ~10 years 12/16/2023 12:03 Decisions CPR decision: Patient chooses CPR 12/16/2023 Patient chooses CPR Intubation/Mechanical Ventilation decision: Patient chooses Intubation/mechanical ventilation 12/16/2023 Patient chooses Intubation/mechanical ventilation Non-invasive ventilation or BIPAP decision: Patient chooses non-invasive ventilation. Select interventions below 12/01/2023 Non-Invasive Ventilation Interventions: Oxygen only;CPAP;BIPAP;NIV 12/01/2023 Antibiotic therapy decision: Patient chooses Antibiotic therapy 12/01/2023 Artificial nutrition decision: Undecided about Artificial nutrition 12/01/2023 IV hydration decision: Patient chooses IV hydration 12/01/2023 Chemotherapy decision: Declines Chemotherapy 12/01/2023 Radiation therapy decision: Declines Radiation therapy 12/01/2023 Surgical procedure(s) decision: Patient chooses Surgical procedure 12/01/2023 Blood transfusion decision: Patient chooses Blood transfusion 12/01/2023 Lab draw decision: Patient chooses Lab draws 12/01/2023 Hospice decision: Undecided about Hospice 12/01/2023 Additional Comments Synopsis [employer] Most Recent Value Past ~10 years 12/16/2023 12:03 Additional Comments Additional Comments: health care agent - Alexus (step daughter) 12/16/2023 health care agent - Alexus (step daughter) Discerning What Matters Most to the Patient: Synopsis [employer] Most Recent Value Past ~10 years 12/16/2023 12:01 Discerning What Matters Most to the Patient In their own words, patient's UNDERSTANDING of their illness is: " i had an aneurysm and it had to be stented" 12/16/2023 " i had an aneurysm and it had to be stented" They say their illness has CHANGED THEIR LIFE by: -- None of the above 12/01/2023 The patient thinks COMPLICATIONS in the future may be: ;More hospitalizations;More fatigue;More pain 12/01/2023 The patient's HOPES are: Maintain current functional abilities;Avoid further hospitalization 12/01/2023 The patient defines LIVING WELL as: "I'd get up in the morning and eat breakfast and do whatever has to be done." 12/01/2023 The patient's FEARS/WORRIES about illness are: Going to a care home 12/01/2023 The patient considers these as 'UNACCEPTABLE OUTCOMES': "Being a vegetable" (define below);Unable to talk/interact with loved ones;Unable to feed themselves;Prolonged mechanical ventilation (define below) 12/01/2023 "Being a vegetable", patient defines as: "May as well shoot me, I don't want that to not be able totalk or anything' 12/01/2023 The patient's cultural or spiritual BELIEFS that may affect health care decisions: N/A 12/01/2023 Source: Content from [facility] Aligning Care With What Matters Most: [employer] Most Recent Value Past ~10 years 12/16/2023 12:03 Aligning Care With What Matters Most In their own words, the patient's understanding of their prognosis: "Not too bad overall" 12/01/2023 Interventions/Choices: CPR;Intubation/mechanical ventilation 12/16/2023 CPR;Intubation/mechanical ventilation Source: Content from [employer] [employer] [facility] 5 minutes spent in direct [id number] discussion today, Shana Nava PA-C * Assessment & Plan Note - Shana Nava PA-C - 12/16/2023 11:49 AM EDT Associated Problem(s): 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) Current CKD Stage: Stage III "RED FLAG" symptoms: NO IDENTIFIED SYMPTOMS CKD Complications: CAD HTN Additional Comments Recently d/c lisinopril due to angioedema BP stable today * Assessment & Plan Note - Shana Nava PA-C - 12/16/2023 11:48 AM EDT Associated Problem(s): Coronary artery disease involving [place] coronary artery of [place] heart without angina pectoris Continue statin documented in this encounter Plan of Treatment Upcoming Encounters Date Type Department Care Team (Late st Contact Info) Description 12/23/2023 10:00 AM EST Imaging Radiology [address] [place] [address] 12/24/2023 10:00 AM EST Home Visit [facility] [place], [facility] [address] [place] [address] Christ Early, [place] [address] [place] [address] 12/30/2023 10:10 AM EST Office Visit Vascular Surgery, [facility] [address] [place] [id number] Saul Crenshaw MD [address] [place] [address] 02/04/2024 9:00 AM EST Home Visit [facility], [facility] [address] [place] [address] Shana Nava PA-C [address] [place] [address] 04/12/2024 10:30 AM EST Office Visit Cardiology, [facility] [place] [address] Shaquille Le DO [address] [place] [address] 08/11/2024 10:20 AM EDT Office Visit Family [facility] [address] [place] [address] Gabi Vinson CRNP [address] [place] [address] 11/15/2024 10:20 AM EDT Office Visit [facility] [place] [address] Edgardo Sánchez DO [address] [place] [address] Health Maintenance Due Date Last Done Comments Adult Wellness Visit 2002 *BISPHONATE OR OTHER ACCEPTABLE MEDICATION NEEDED FOR OSTEOPOROSIS (REFER TO SMARTSET #1146) 05/11/2020 Diabetic Eye Exam 01/20/2023 01/20/2022, 01/29/2000 Diabetic Foot Exam 06/04/2023 06/03/2022 COVID-19 Vaccine ( season) 2023 Influenza Vaccine (FLU shot) (#1) 2023 11/16/2022, 11/09/2021, 11/19/2020, Additional history exists CKD PHOS USE SMARTSET 14544 01/15/202412/18, 06/03/2021, 04/24/2021, Additional history exists HbA1c 05/10/2024 11/11/2023, 12/18, 01/20/2022, Additional history exists TSH 11/10/2024 11/11/2023, 08/18, 01/14/2023, Additional history exists Albumin/Creatinine Ratio 11/15/2024 024, 01/16/2023, 06/03/2021, Additional history exists O2 ASSESSMENT COMPLETED IN PAST YEAR FOR COPD 11/26/2024 11/27/2023 CKD HGB USE SMARTSET 57347 11/27/202411/27, 11/27/2023, 11/16/2023, Additional history exists Depression Screening 11/30/2024 12/01/2023, 11/11/19 24 DTap/Tdap Vaccines (3 - Td or Tdap) 06/09/2032 06/09/2022, 09/15/2011, 01/16/1994 VITAMIN D LEVEL ONCE IN A LIFETIME-USE SMARTSET# [id number] Completed 03/29/2012, 10/24/2008 Pneumococcal Vaccine: 65+ Years Completed 03/28/2014, 02/03/2005, 01/25/1997, Additional history exists Zoster Vaccines Discontinued 10/10/2014 DXA Scan Discontinued 05/28/2016 Alpha-1 Antitrypsin Completed 11/09/2019 HPV (Gardasil) Vaccine Aged Out No lo nger eligible based on patient's age to complete this topic Hepatitis B Vaccine Aged Out No longe r eligible based on patient's age to complete this topic MENINGOCOCCAL (MENACTRA/MENVEO) Aged Out No longer eligible based on patient's age to complete this topic documented as of this encounter Medical Devices Implanted Type Area Display Carver Device Identifier Shelf Expiration Date Model / Serial / Lot Lens Intraoc 19.0 - [id number] - [id number] Implanted:Qty: 1 on 06/18/2021 by Gilmer Davalos MD at OR [facility] Right: Eye [employer] 02/15/2026 [id number] / [id number] / [id number] Plug Vasc Ampl 12mm 9-Plug-012 - [id number] Implanted:Qty: 1 on 11/27/2023 by Saul Crenshaw MD at OR [facility] Right: Iliac [employer] [id number] 2027 9-PLUG-01 / [id number] 11mm X 10cm X 120cm Viabahn Endoprosthesis Stent Graft, With Heparin Bioactive Surface Implanted:Qty: 1 on 11/27/2023 by Saul Crenshaw MD at OR [facility] Right: Iliac [employer] [id number] 07/19/2026 [id number] / [id number] / [id number] Graft Abdominal [id number] Stent Control Trunk Ipsilateral System Leg Aortic Aneurysm Conformable Endoprosthesis With Active Excluder Aaa - [id number] Implanted:Qty: 1 on 11/27/2023 by Saul Crenshaw MD at OR [facility] N/A: Aorta [employer] [id number] 07/14/2026 [id number] / / [id number] Grft Excldr 39rjm52.5cm - [id number] Implanted:Qty: 1 on 11/27/2023 by Saul Crenshaw MD at OR [facility] Left: Iliac [employer] 12/03/2025 [id number] / [id number] / [id number] Graft Excludr [id number] - [id number] Implanted:Qty: 1 on 11/27/2023 by Saul Crenshaw MD at OR [facility] Right: Iliac [employer] [id number] 07/29/2026 [id number] / [id number] / [id number] documented as of this encounter Visit Diagnoses Diagnosis Infrarenal abdominal aortic aneurysm (AAA) without rupture (HCC)- Primary H/O endovascular stent graft for abdominal aortic aneurysm Blood vessel replaced by other means Coronary artery disease involving [place] coronary artery of [place] heart without angina pectoris 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) Advanced care planning/counseling discussion Other specified counseling documented in this encounter Advance Directives * Full Code (Latest Code Status on File) Date Activated Date Inactivated Comments 11/27/2023 11:28 AM 11/28/2023 7:06 PM This orde r reflects the patients wishes and were consensually agreed upon. Question Answer Comments Discussion of Advance Direct matt occurred with: Not Discussed due to patient's condition Care Teams Eyelet Punch Operator Relationship Specialty Start Date End Date Edgardo Sánchez DO [address] [place] [address] PCP - General Family Medicine 03/09/19 documented as of this encounter
--- OUTSIDE RECORDS SUMMARY | 2024-04-03 21:56 | External Medical Summary | Summary of Care ---
Author Name Unknown Organization [facility] Address [address] [place] [address] Phone [phone] Care Team Providers Care Senior Energy Analyst Name Role Phone Efra Sánchezvor Ayana DO Primary Care Provider Encounter Details Date Type Department Care Team (Late st Contact Info) Description 12/31/2023 Orders Only PATIENT PORTAL DO NOT DELETE THIS DEPT USED BY [place] Y[place] [id number] Allergies Active Allergy Reactions Criticality Noted Date [...] 2017 classification ([facility]),COPD exacerbation ([facility]) Inhale 2 Puffs by mouth every [...] fracture 05/09/2020 Coronary artery disease invo lving [place] coronary artery of [place] heart without angina pectoris 05/09/2020 Overview (12/16/2023): [...] Overview: Per COPD GOLD Classification History of RI (myocardial infarction) 07/11/2016 Abdominal aortic aneurysm (AAA) without rupture 05/09/2016 Paroxysmal atrial fibrillation 05/09/2016 Beta-blockers contraindicated 11/13/2011 HTN, goal below 140/90 09/15/2011 Hypothyroidism due to medication 05/29/2010 DYSLIPIDEMIA, GOAL LDL BELOW 100 01/25/2009 Overview (01/25/2009): Per Lipid Taxonomy. CHR ISCHEMIC HRT DIS NOS 03/31/2002 Overview (03/17/2012): [place] documented as of this encounter (statuses as [...] Description 01/04/2024 2:30 PM EST Home Visit [facility] [address] [place] [address] Christ Early, RN [address] [place] [address] 02/04/2024 9:00 AM EST Home Visit [facility] [address] [place] [address] Yon Bell PA-C [address] [place] [address] 04/12/2024 10:30 AM EST Office Visit Cardiology, [facility] [address] [place] [address] Shaquille Le, [address] [place] [address] 06/22/2024 10:00 AM EDT Imaging Radiology [address], [place] [address] [facility] [place] [address] 06/22/2024 11:00 AM EDT Imaging Radiology [address], [place] [address] [facility] [place] [address] 06/29/2024 10:30 AM EDT Office Visit Vascular Surgery, [facility] [address] [place] [address] Saul Crenshaw MD [address] [place] [address] 08/11/2024 10:20 AM EDT Office Visit [facility] [place] [address] Gabi Vinson CRNP [address] [place] [address] 11/15/2024 10:20 AM EDT Office Visit [facility] [address] [facility] [place] [address] Edgardo Sánchez DO [address] [facility] [place] [address] Health Maintenance Due Date Last Done Comments Adult Wellness Visit 2002 *BISPHONATE OR OTHER ACCEPTABLE MEDICATION NEEDED FOR OSTEOPOROSIS (REFER TO SMARTSET #1146) 05/11/2020 Diabetic Foot Exam 06/04/2023 06/03/2022 COVID-19 Vaccine ( season) 2023 CKD PHOS USE SMARTSET 32226 01/15/202412/18, 06/03/2021, 04/24/2021, Additional history exists HbA1c 05/10/2024 11/11/2023, 12/18, 01/20/2022, Additional history exists TSH 11/10/2024 11/11/2023, 07/3 02/2023, 01/14/2023, Additional history exists Albumin/Creatinine Ratio 11/15/2024 024, 01/16/2023, 06/03/2021, Additional history exists O2 ASSESSMENT COMPLETED IN PAST YEAR FOR COPD 11/26/2024 11/27/2023 CKD HGB USE SMARTSET 84203 11/27/202411/27, 11/27/2023, 11/16/2023, Additional history exists Depression Screening 11/30/2024 12/01/2023, 11/11/19 24 Diabetic Eye Exam 12/28/2024 12/29/2023, , 01/29/2000 DTap/Tdap Vaccines (3 - Td or Tdap) 06/09/2032 06/09/2022, 09/15/2011, 01/16/1994 VITAMIN D LEVEL ONCE IN A LIFETIME-USE SMARTSET# 23042 Completed 03/29/2012, 10/24/2008 Pneumococcal Vaccine: 65+ Years [...] this encounter Medical Devices Implanted Type Area Museum Guide Device Identifier Shelf Expiration Date Model / Serial / Lot Lens Intraoc 19.0 - [id number] - [id number] Implanted:Qty: 1 on 06/18/2021 by Gilmer Davalos MD at OR [facility] Right: Eye [employer] 02/15/2026 [id number] / [id number] Plug Vasc Ampl 12mm 9-Plug-012 - [id number] Implanted:Qty: 1 on 11/27/2023 by Saul Crenshaw MD at [place] [facility] Right: Iliac [employer] [id number] 2027 9-PLUG-01 [id number] 11mm X 10cm X 120cm Viabahn Endoprosthesis Stent Graft, With Heparin Bioactive Surface Implanted:Qty: 1 on 11/27/2023 by Saul Crenshaw MD at [place] [facility] Right: Iliac [employer] [id number] 07/19/2026 [id number] / [id number] / [id number] Graft Abdominal 32x14.8uom91zn Stent Control Trunk Ipsilateral System Leg Aortic Aneurysm Conformable Endoprosthesis With Active Excluder Aaa - [id number] Implanted:Qty: 1 on 11/27/2023 by Saul Crenshaw MD at [place] [facility] N/A: Aorta [employer] [id number] 07/14/2026 [id number] / / [id number] Grft Excldr 06tfc39.5cm - [id number] Implanted:Qty: 1 on 11/27/2023 by Saul Crenshaw MD at [place] [facility] Left: Iliac [employer] 12/03/2025 [id number] / [id number] / [id number] Graft Excludr [id number] - [id number] Implanted:Qty: 1 on 11/27/2023 by Saul Crenshaw MD at [place] [facility] Right: Iliac [employer] [id number] 07/29/2026 [id number] / [id number] / [id number] documented as of this encounter Advance Directives * Full Code (Latest Code Status on File) Date Activated Date Inactivated Comments 11/27/2023 11:28 AM 11/28/2023 7:06 PM This orde r reflects the patients wishes and were consensually agreed upon. Question Answer Comments Discussion of Advance Direct matt occurred with: Not Discussed due to patient's condition Care Teams Senior Energy Analyst Relationship Specialty Start Date End Date Edgardo Sánchez DO [address] [place] [address] PCP - General Family Medicine 03/09/19 documented as of this encounter
--- OUTSIDE RECORDS SUMMARY | 2024-04-03 21:56 | External Medical Summary | Summary of Care ---
Author Name Unknown Organization [facility] Address [address] [place] [address] Phone [phone] Care Team Providers Care Medication Tech Name Role Phone Edgardo Sánchez Primary Care Provider Reason for Visit * Reason Onset Date Comments Scan To Read 12/29/2023 Encounter Details Date Type Department Care Team (Late st Contact Info) Description 12/29/2023 Telephone Family Practice [facility] [address] [place] [address] Felecia Antoine LPN Scan To Read Allergies Active Allergy Reactions Criticality Noted Date [...] group A, by GOLD 2017 classification ([facility]),COPD exacerbation (HCC) Inhale 2 Puffs by mouth every 6 hours as needed for Shortness of Breath. 6.7 g 3 4 10:57 AM EST 12/29/19 24 Active Fluticasone-Umeclid in-Vilant 100-62.5-25 MCG/ACT Aerosol Powder Breath Activated (Trelegy Ellipta)Indications :COPD, group A, by GOLD 2017 classification ([facility]),COPD exacerbation (HCC) Inhale 1 Puff by mouth in the morning. [address] Bl[address] Dosing Unit 3 11/12/20 24 Active documented as of this encounter [...] fracture 05/09/2020 Coronary artery disease invo lving [place] coronary artery of [place] heart without angina pectoris 05/09/2020 Overview (12/16/2023): [...] 12/31/2023) Immunizations Name Administration Dates Next Due Diptheria/Tetanus (Adult) 01/16/1994 H1N1 2009 Influenza, IM 01/16/2009 Pneumococcal Conjugate Vacc, 13 Valent (Prevnar) 03/28/2014 Pneumococcal Polysaccharide PPV23 (Pneumovax) 02/03/2005,01/25/1997,02/17/1989 Season Influenza, Quad, PF, Adjuvanted, 65+ Yrs, [...] encounter Miscellaneous Notes * Telephone Encounter - Tonya Rincon OSA - 12/31/2023 9:09 AM EST Pt states he will find an eye dr closer to home to get a DM eye exam * Telephone Encounter - Deshawn Roe MD - 12/30/2023 7:18 AM EST Retinal Scan Imaging Nitin Pickett [id number] Retinal Scan Interpretation: The images are not able to be interpreted. Diabetes Retinal Imaging Care Plan: The retinal scan results are uninterpretable - I will forward this encounter to the Ophthalmology DM Letter Pool [[id number]], they will send an unreadable retinal scan letter to the patient. I will forward this encounter to the ordering provider. Patient prefers to be seen at [facility] for follow-up evaluation. This encounter will be sent to Ophthalmology scheduling services, please schedule the patient within 3 months. Deshawn Roe MD 12/30/2023 7:18 AM * Telephone Encounter - Felecia Antoine LPN - 12/29/2023 4:26 PM EST A Diabetic Telemed Eye image was taken and requires your interpretation for Dr Sánchez. Please check your inbasket for image. Patient prefers to be seen at [facility] if a follow-up appointment is needed. documented in this encounter Plan of Treatment Upcoming Encounters Date Type Department Care Team (Late st Contact Info) Description 01/04/2024 2:30 PM EST [facility] Visit [facility] [address] [place] [address] Christ Early, RN [address] [place] [address] 02/04/2024 9:00 AM EST [facility] Visit [facility] [address] [place] [address] Yon Bell PA-C [address] [place] [address] 04/12/2024 10:30 AM EST Office Visit Cardiology, [facility] [address] [place] [address] Shaquille Le DO [address] [place] [address] 06/22/2024 10:00 AM EDT Imaging Radiology [address] [place] [address] 06/22/2024 11:00 AM EDT Imaging Radiology [address], [place] [address] [place] [address] 06/29/2024 10:30 AM EDT Office Visit Vascular Surgery, [facility] [address] [facility] [place] [address] Saul Crenshaw MD [address] [place] [address] 08/11/2024 10:20 AM EDT Office Visit [facility] [address] [place] [address] Gabi Vinson CRNP [address] [place] [address] 11/15/2024 10:20 AM EDT Office Visit [facility] [address] [place] [address] Edgardo Sánchez DO [address] [place] [address] Health Maintenance Due Date Last Done Comments Adult Wellness Visit 2002 *BISPHONATE OR OTHER ACCEPTABLE MEDICATION NEEDED FOR OSTEOPOROSIS (REFER TO SMARTSET #1146) 05/11/2020 Diabetic Foot Exam 06/04/2023 06/03/2022 COVID-19 Vaccine ( season) 2023 CKD PHOS USE SMARTSET 08085 01/15/202412/18, 06/03/2021, 04/24/2021, Additional history exists HbA1c 05/10/2024 11/11/2023, 12/18, 01/20/2022, Additional history exists TSH 11/10/2024 11/11/2023, 07/3 02/2023, 01/14/2023, Additional history exists Albumin/Creatinine Ratio 11/15/2024 024, 01/16/2023, 06/03/2021, Additional history exists O2 ASSESSMENT COMPLETED IN PAST YEAR FOR COPD 11/26/2024 11/27/2023 CKD HGB USE SMARTSET 89051 11/27/202411/27, 11/27/2023, 11/16/2023, Additional history exists Depression Screening 11/30/2024 12/01/2023, 11/11/19 Diabetic Eye Exam 12/28/2024 12/29/2023, , 01/29/2000 DTap/Tdap Vaccines (3 - Td or Tdap) 06/09/2032 06/09/2022, 09/15/2011, 01/16/1994 VITAMIN D LEVEL ONCE IN A LIFETIME-USE SMARTSET# 34591 Completed 03/29/2012, 10/24/2008 Pneumococcal Vaccine: 65+ Years [...] this encounter Medical Devices Implanted Type Area Health Professional Device Identifier Shelf Expiration Date Model / Serial / Lot Lens Intraoc 19.0 - [id number] - [id number] Implanted:Qty: 1 on 06/18/2021 by Gilmer Davalos MD at OR [facility] Right: Eye [employer] 02/15/2026 [id number] / [id number] Plug Vasc Ampl 12mm 9-Plug-012 - [id number] Implanted:Qty: 1 on 11/27/2023 by Saul Crenshaw MD [place] [facility] Right: Iliac [employer] [id number] 2027 9-PLUG-01 / [id number] 11mm X 10cm X 120cm Vi[employer]ahn Endoprosthesis Stent Graft, With Heparin Bioactive Surface Implanted:Qty: 1 on 11/27/2023 by Saul Crenshaw MD at [place] [facility] Right: Iliac [employer] [id number] 07/19/2026 [id number] / [id number] / [id number] Graft Abdominal 32x14.5ynr31rw Stent Control Trunk Ipsilateral System Leg Aortic Aneurysm Conformable Endoprosthesis With Active Excluder Aaa - [id number] Implanted:Qty: 1 on 11/27/2023 by Saul Crenshaw MD at [place] [facility] N/A: Aorta [employer] [id number] 07/14/2026 [id number] / [id number] Grft Excldr 21dua70.5cm - [id number] Implanted:Qty: 1 on 11/27/2023 by Saul Crenshaw MD at [place] [facility] Left: Iliac [employer] 12/03/2025 [id number] / [id number] / [id number] Graft Excludr [id number] - [id number] Implanted:Qty: 1 on 11/27/2023 by Saul Crenshaw MD at [place] [facility] Right: Iliac [employer] [id number] 07/29/2026 [id number] / [id number] / [id number] documented as of this encounter Advance Directives * Full Code (Latest Code Status on File) Date Activated Date Inactivated Comments 11/27/2023 11:28 AM 11/28/2023 7:06 PM This orde r reflects the patients wishes and were consensually agreed upon. Question Answer Comments Discussion of Advance Direct matt occurred with: Not Discussed due to patient's condition Care Teams Medication Tech Relationship Specialty Start Date End Date Edgardo Sánchez DO [address] [place] [address] PCP - General Family Medicine 03/09/19 documented as of this encounter
--- OUTSIDE RECORDS SUMMARY | 2024-04-03 21:56 | External Medical Summary | Summary of Care ---
Author Name Unknown Organization [facility] Address [address] [place] [address] Phone [phone] Care Team Providers Care Whale Trainer Name Role Phone Sánchez Edgardo Marshallmariel Primary Care Provider Encounter Details Date Type Department Care Team (Late st Contact Info) Description 12/16/2023 9:40 AM EDT Home Visit [facility] at [facility], [facility] [address] [facility] [place] [address] Shana Nava PA-C [address] [facility] [place] [address] Lashanda Putnam, Community Health Chef German [address], [place] [id number] Infrarenal abdominal aortic aneurysm (AAA) without rupture (HCC)*; H/O endovascular stent graft for abdominal aortic aneurysm; Coronary artery disease involving [place] coronary artery of [place] heart without angina pectoris; Hypertensive kidney disease [...] Base) MCG/ACT Inhalation Aerosol SolutionIndications:C OPD exacerbation ([facility]) Inhale 2 Puffs by mouth every 6 [...] PD, group A, by GOLD 2017 classification ([facility]) INHALE ONE PUFF BY MOUTH TWICE A [...] MCG/ACT Inhalation Aerosol Powder Breath Activated (umeclidinium [place])Indications:C OPD, group A, by GOLD 2017 classification [...] fracture 05/09/2020 Coronary artery disease invo lving [place] coronary artery of [place] heart without angina pectoris 05/09/2020 Overview: Nuclear [...] Overview: Per COPD GOLD Classification History of [place] (myocardial infarction) 07/11/2016 Abdominal aortic aneurysm (AAA) [...] aortic aneurysm #3 Coronary artery disease involving [place] coronary artery of [place] heart without angina pectoris Overview: Nuclear stress [...] Specialty Dept Phone 12/23/2023 10:00 AM CT1 [facility] Radiology [phone] 12/24/2023 10:00 AM Christ Early, DIANNA [facility] [phone] 12/30/2023 10:10 AM Saul Crenshaw MD Vascular Surgery [phone] 04/12/2024 10:30 AM (Arrive by 10:15 AM) Shaquille Le DO Cardiology [phone] 08/11/2024 10:20 AM (Arrive by 10:05 AM) Gabi Vinson CRNP Family Medicine [phone] 11/15/2024 10:20 AM (Arrive by 10:05 AM) Edgardo Sánchez DO Family Medicine [phone] A total of 25 minutes was spent face to face (via video-based telemedicine if designated as a telemedicine visit) Subjective Subjective Is this a Telemedicine Visit? Yes, Patient location: HOME. I was not in a hospital or clinic location. After connecting through [employer], patient was verified with two unique identifiers. Patient (or authorized legal applications sales representative) was then informed that this was a Telemedicine visit and being conducted confidentially over secure lines. Methods to assure confidentiality were taken. Patient acknowledged consent and understanding of privacy and security of the Telemedicine visit. The patient agreed to participate. Reason For [facility] Visit: Enrollment Current Concerns: Nitin Pickett is a 88 year old male seen today for a [facility] provider visit. PMH includes COPD, CKD3, HTN, HLD, DM2, osteoporosis, CAD, AAA s/p repair 11/25-11/28/23 - [facility] - AAA repair Today's concerns are: Denies [...] MCG/ACT Inhalation Aerosol Powder Breath Activated (umeclidinium [place]) Inhale 1 Puff by mouth in the [...] 10:05 AM * Lashanda Putnam, Community Health Chef German - 12/16/2023 10:03 AM EDT Telemedicine visit: Yes Patient location: HOME. I was not in a hospital or clinic location. After connecting through televideo, patient was verified with two unique identifiers. Patient (or authorized legal applications sales representative) was then informed that this was a Telemedicine visit and being conducted confidentially over secure lines. Methods to assure confidentiality were taken. Patient acknowledged consent and understanding of privacy and security of the Telemedicine visit. The patient agreed to participate. Community Health Chef German (STEFANO) documentation: CHW facilitated telehealth visit with provider Shana Putnam- Community Health Worker 1 Support Services/[facility] [employer] Plan [email or web address] documented in this encounter Miscellaneous Notes * [...] Undecided about Hospice 12/01/2023 Additional Comments Synopsis [facility] Most Recent Value Past ~10 years 12/16/2023 12:03 Additional Comments Additional Comments: health care agent - Alexus (step daughter) 12/16/2023 health care agent - Alexus (step daughter) Discerning What Matters Most to the Patient: Synopsis [employer] Most Recent Value Past ~10 years 12/16/2023 [...] FEARS/WORRIES about illness are: Going to a long term 12/01/2023 The patient considers these as 'UNACCEPTABLE [...] care decisions: N/A 12/01/2023 Source: Content from [employer] Program Aligning Care With What Matters Most: [employer] Most Recent Value Past ~10 years 12/16/2023 12:03 Aligning Care With What Matters Most In their own words, the patient's understanding of their prognosis: "Not too bad overall" 12/01/2023 Interventions/Choices: CPR;Intubation/mechanical ventilation 12/16/2023 CPR;Intubation/mechanical ventilation Source: Content from [employer] Program 5 minutes spent in direct okpz-ey-xsyz discussion today, Shana Nava PA-C * Assessment [...] EDT Associated Problem(s): Coronary artery disease involving [place] coronary artery of [place] heart without angina pectoris Continue statin documented in this encounter Plan of Treatment Upcoming Encounters Date Type Department Care Team (Late st Contact Info) Description 12/23/2023 10:00 AM EST Imaging Radiology [address] [place] [address] 12/24/2023 10:00 AM EST Home Visit [facility], [facility] [address] [place] [address] Christ Eraly, DIANNA [address] [place] [address] 12/30/2023 10:10 AM EST Office Visit Vascular Surgery, [facility] [address] [place] [address] Saul Crenshaw MD [address] [facility] [address] 02/04/2024 9:00 AM EST Home Visit [facility] at Home, [facility] [address] [place] [address] Shana Nava PA-C [address] [place] [address] 04/12/2024 10:30 AM EST Office Visit Cardiology, [facility] [address] [facility] [place] [address] Shaquille Le DO [address] [place] [address] 08/11/2024 10:20 AM EDT Office Visit Family [facility] [address] [place] [address] Gabi Vinson CRNP [address] [place] [address] 11/15/2024 10:20 AM EDT Office Visit [facility] [address] [facility] [place] [address] Edgardo Sánchez DO [address] [place] [address] Health Maintenance Due Date Last Done Comments Adult Wellness Visit 2002 *BISPHONATE OR OTHER ACCEPTABLE MEDICATION NEEDED FOR OSTEOPOROSIS (REFER TO SMARTSET #1146) 05/11/2020 Diabetic Eye Exam 01/20/2023 01/20/2022, 01/29/2000 Diabetic Foot Exam 06/04/2023 06/03/2022 COVID-19 Vaccine ( season) 2023 Influenza Vaccine (FLU shot) (#1) 2023 11/16/2022, 11/09/2021, 11/19/2020, Additional history exists CKD PHOS USE SMARTSET 00293 01/15/202412/18, 06/03/2021, 04/24/2021, Additional history exists HbA1c 05/10/2024 11/11/2023, 12/18, 01/20/2022, Additional history exists TSH 11/10/2024 11/11/2023, 08/18, 01/14/2023, Additional history exists Albumin/Creatinine Ratio 11/15/2024 024, 01/16/2023, 06/03/2021, Additional history exists O2 ASSESSMENT COMPLETED IN PAST YEAR FOR COPD 11/26/2024 11/27/2023 CKD HGB USE SMARTSET 73101 11/27/202411/27, 11/27/2023, 11/16/2023, Additional history exists Depression Screening 11/30/2024 12/01/2023, 11/11/19 24 DTap/Tdap Vaccines (3 - Td or Tdap) 06/09/2032 06/09/2022, 09/15/2011, 01/16/1994 VITAMIN D LEVEL ONCE IN A LIFETIME-USE SMARTSET# 21540 Completed 03/29/2012, 10/24/2008 Pneumococcal Vaccine: 65+ Years [...] this encounter Medical Devices Implanted Type Area County Engineer Device Identifier Shelf Expiration Date Model / Serial / Lot Lens Intraoc 19.0 - [id number] - [id number] Implanted:Qty: 1 on 06/18/2021 by Gilmer Davalos MD at OR [facility] Right: Eye [employer] 02/15/2026 [id number] / [id number] / [id number] Plug Vasc Ampl 12mm 9-Plug-012 - [id number] Implanted:Qty: 1 on 11/27/2023 by Saul Crenshaw MD at OR [facility] Right: Iliac [employer] [id number] 2027 9-PLUG-01 / [id number] 11mm X 10cm X 120cm Viabahn Endoprosthesis Stent Graft, With Heparin Bioactive Surface Implanted:Qty: 1 on 11/27/2023 by Saul Crenshaw MD at OR [facility] Right: Iliac [employer] [id number] 07/19/2026 [id number] / [id number] / [id number] Graft Abdominal 32x14.2asf62dx Stent Control Trunk Ipsilateral System Leg Aortic Aneurysm Conformable Endoprosthesis With Active Excluder Aaa - [id number] Implanted:Qty: 1 on 11/27/2023 by Saul Crenshaw MD at OR [facility] N/A: Aorta [employer] [id number] 07/14/2026 [id number] / [id number] Grft Excldr 16yce54.5cm - [id number] Implanted:Qty: 1 on 11/27/2023 by Saul Crenshaw MD at OR [facility] Left: Iliac [employer] 12/03/2025 [id number] / [id number] / [id number] Graft Excludr [id number] - [id number] Implanted:Qty: 1 on 11/27/2023 by Saul Crenshaw MD at OR [facility] Right: Iliac [employer] [id number] 07/29/2026 [id number] / [id number] / [id number] documented as of this encounter Visit Diagnoses Diagnosis Infrarenal abdominal aortic aneurysm (AAA) without rupture (HCC)- Primary H/O endovascular stent graft for abdominal aortic aneurysm Blood vessel replaced by other means Coronary artery disease involving [place] coronary artery of [place] heart without angina pectoris Hypertensive kidney disease [...] Discussed due to patient's condition Care Teams Whale Trainer Relationship Specialty Start Date End Date Edgardo Sánchez DO [address] [place] [address] PCP - General Family Medicine 03/09/19 documented as of this encounter
--- OUTSIDE RECORDS SUMMARY | 2024-04-03 21:56 | External Medical Summary | Summary of Care ---
Author Name Unknown Organization [facility] Address [address] [place] [address] Phone [phone] Care Team Providers Care Judicial Law Clerk Name Role Phone Edgardo Sánchez DO Primary Care Provider Encounter Details Date Type Department Care Team (Late st Contact Info) Description 12/24/2023 Population Health External Data Unspecified Department Allergies Active Allergy Reactions Criticality Noted Date Comments Jason Inhibitors Edema face/lips/tongue High 4 angioedema Latex 07/21/2016 Pt states he breaks out from this documented as of this encounter (statuses as of 12/25/2023) Medications ASPIRIN 81 MG PO TABSIndications:Cor onary atherosclerosis 1 daily 0 0 05/17/19 08 Active VITAMIN D 1000 UNIT PO CAPS 1 capsule daily 0 0 12/09/19 09 Active Multi-Vitamins Oral Tablet Take 1 Tablet by mouth in the morning. Active Albuterol Sulfate HFA 108 (90 Base) MCG/ACT Inhalation Aerosol SolutionIndications :COPD exacerbation (HCC) Inhale 2 Puffs by mouth every 6 hours as needed for Shortness of Breath. 18 g 3 11/22/19 21 Active Additional Information Patient not taking.Reported on 12/01/2023 Diclofenac Sodium 1 % External Gel (Voltaren)Indicatio ns:Osteoarthritis of left knee, unspecified osteoarthritis type Apply 4 g topically to affected area 3 times a day as needed for Pain, Moderate. Apply to the affected knee as needed. 1100 g 5 3 5:05 PM EST 01/10/20 Active Additional Information Patient not taking.Reported on 11/27/2023 Levothyroxine Sodium 100 MCG Oral Tablet (Levoxyl)Indication [...] 3:01 PM EDT 07/21/19 24 025 Active Fluticasone-[place]mete rol 500-50 MCG/ACT Inhalation Aerosol Powder Breath Activated (Advair Diskus)Indications: COPD, group A, by GOLD 2017 classification ([facility]) INHALE ONE PUFF BY MOUTH TWICE A DAY IN THE MORNING AND BEFORE BEDTIME 180 Each 4 3:50 PM EDT 11/16/19 Active oxyCODONE HCl 5 MG Oral Tablet [...] 4 2:18 PM EDT 11/29/19 24 Active Incruse Ellipta 62.5 MCG/ACT Inhalation Aerosol Powder Breath Activated (umeclidinium [place])Indications :COPD, group A, by GOLD 2017 classification ([facility]) Inhale 1 Puff by mouth in the morning. 90 Each 4 12:18 PM EDT 10/16/20 24 Active documented as of this encounter (statuses as of 12/25/2023) Active Problems Problem Noted Date Diagnosed Date [...] fracture 05/09/2020 Coronary artery disease invo lving [place] coronary artery of [place] heart without angina pectoris 05/09/2020 Overview (12/16/2023): [...] Overview: Per COPD GOLD Classification History of [place] (myocardial infarction) 07/11/2016 Abdominal aortic aneurysm (AAA) without rupture 05/09/2016 Paroxysmal atrial fibrillation 05/09/2016 Beta-blockers contraindicated 11/13/2011 HTN, goal below 140/90 09/15/2011 Hypothyroidism due to medication 05/29/2010 DYSLIPIDEMIA, GOAL LDL BELOW 100 01/25/2009 Overview (01/25/2009): Per Lipid Taxonomy. CHR ISCHEMIC HRT DIS NOS 03/31/2002 Overview (03/17/2012): Vivek documented as of this encounter (statuses as of 12/25/2023) Resolved Problems Problem Noted Date Diagnosed Date [...] as of this encounter (statuses as of 12/25/2023) Immunizations Name Administration Dates Next Due H1N1 2009 Influenza, IM 01/16/2009 Pneumococcal Conjugate Vacc, 13 Valent (Prevnar) 03/28/2014 Seasonal Influenza Vac., MDV , IM, 0.5 [...] Team (Late st Contact Info) Description 12/29/2023 1:40 PM EST Office Visit Family Practice [facility] [address] [place] [address] Edgardo Sánchez DO [address] [place] [address] 12/30/2023 10:10 AM EST Office Visit Vascular Surgery, [facility] [address] [place] [address] Saul [facility]renshaw MD [address] [facility] [place] [address] 01/04/2024 2:30 PM EST Home Visit [facility]ing at [facility] [address] [place] [address] Christ Early, DIANNA [address] [place] [address] 02/04/2024 9:00 AM EST [facility] Visit [facility], [facility] [address] [place] [address] Yon Bell PA-C [address] [place] [address] 04/12/2024 10:30 AM EST Office Visit Cardiology, [facility] [address] [place] [address] Shaquille Le, DO [address] [place] [address] 08/11/2024 10:20 AM EDT Office Visit Family [facility] [address] [place] [address] Gabi Vinson CRNP [address] [place] [address] 11/15/2024 10:20 AM EDT Office Visit [facility] [address] [place] [address] Edgardo Sánchez DO [address] [place] [address] Health Maintenance Due Date Last Done Comments Adult Wellness Visit 2002 *BISPHONATE OR OTHER ACCEPTABLE MEDICATION NEEDED FOR OSTEOPOROSIS (REFER TO SMARTSET #1146) 05/11/2020 Diabetic Eye Exam 01/20/2023 01/20/2022, 01/29/2000 Diabetic Foot Exam 06/04/2023 06/03/2022 COVID-19 Vaccine ( season) 2023 Influenza Vaccine (FLU shot) (#1) 2023 11/16/2022, 11/09/2021, 11/19/2020, Additional history exists CKD PHOS USE SMARTSET 68186 01/15/202412/18, 06/03/2021, 04/24/2021, Additional history exists HbA1c 05/10/2024 11/11/2023, 12/18, 01/20/2022, Additional history exists TSH 11/10/2024 11/11/2023, 08/18, 01/14/2023, Additional history exists Albumin/Creatinine Ratio 11/15/2024 024, 01/16/2023, 06/03/2021, Additional history exists O2 ASSESSMENT COMPLETED IN PAST YEAR FOR COPD 11/26/2024 11/27/2023 CKD HGB USE SMARTSET 96022 11/27/202411/27, 11/27/2023, 11/16/2023, Additional history exists Depression Screening 11/30/2024 12/01/2023, 11/11/19 DTap/Tdap Vaccines (3 - Td or Tdap) 06/09/2032 06/09/2022, 09/15/2011, 01/16/1994 VITAMIN D LEVEL ONCE IN A LIFETIME-USE SMARTSET# 20229 Completed 03/29/2012, 10/24/2008 Pneumococcal Vaccine: 65+ Years [...] this encounter Medical Devices Implanted Type Area Tuberculosis Specialist Device Identifier Shelf Expiration Date Model / Serial / Lot Lens Intraoc 19.0 - [id number] - [id number] Implanted:Qty: 1 on 06/18/2021 by Gilmer Davalos MD at OR [facility] Right: Eye [employer] 02/15/2026 [id number] / [id number] Plug Vasc Ampl 12mm 9-Plug-012 - [id number] Implanted:Qty: 1 on 11/27/2023 by Saul Crenshaw MD at OR [facility] Right: Iliac [employer] [id number] 2027 9-PLUG-01 2 / [id number] 11mm X 10cm X 120cm Viabahn Endoprosthesis Stent Graft, With Heparin Bioactive Surface Implanted:Qty: 1 on 11/27/2023 by Saul Crenshaw MD at OR [facility] Right: Iliac [employer] [id number] 07/19/2026 [id number] / [id number] / [id number] Graft Abdominal 32x14.0bcq62ow Stent Control Trunk Ipsilateral System Leg Aortic Aneurysm Conformable Endoprosthesis With Active Excluder Aaa - [id number] Implanted:Qty: 1 on 11/27/2023 by Saul Crenshaw MD at OR [facility] N/A: Aorta [employer] [id number] 07/14/2026 [id number] / / [id number] Grft Excldr 76nfi18.5cm - [id number] Implanted:Qty: 1 on 11/27/2023 by Saul Crenshaw MD at OR [facility] Left: Iliac [employer] 12/03/2025 [id number] / [id number] / [id number] Graft Excludr [id number] - [id number] Implanted:Qty: 1 on 11/27/2023 by Saul Crenshaw MD at OR [facility] Right: Iliac [employer] [id number] 07/29/2026 [id number] / [id number] / [id number] documented as of this encounter Advance Directives * Full Code (Latest Code Status on File) Date Activated Date Inactivated Comments 11/27/2023 11:28 AM 11/28/2023 7:06 PM This orde r reflects the patients wishes and were consensually agreed upon. Question Answer Comments Discussion of Advance Direct matt occurred with: Not Discussed due to patient's condition Care Teams Judicial Law Clerk Relationship Specialty Start Date End Date Sánchez, Edgardo Sherrick, DO [address] [place] [address] PCP - General Family Medicine 03/09/19 documented as of this encounter
--- OUTSIDE RECORDS SUMMARY | 2024-04-03 21:56 | External Medical Summary | Summary of Care ---
Author Name Unknown Organization [facility] Address [address] [place] [address] Phone [phone] Care Team Providers Care Folder And Notcher Name Role Phone Edgardo Sánchez DO Primary Care Provider Reason for Visit * Reason Comments Return Visit Pt here for 2 wk f/u . No voiced concerns noted per pt. Encounter Details Date Type Department Care Team (Latest Contact Info) Description 12/29/2023 1:40 PM EST Office Visit Family Practice [facility] [address] [place] [address] Edgardo Sánchez DO [address] [facility] [place] [address] Type 2 diabetes mellitus with stage 3b chronic kidney disease, without long-term current use of insulin ([facility])*; Type 2 diabetes mellitus with hemoglobin A1c goal of less than 8.0% ([facility]); Chronic kidney disease, stage 3b ([facility]); 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 ([facility]); Iliac artery aneurysm, bilateral ([facility]); H/O endovascular stent graft for abdominal aortic aneurysm; Coronary artery disease involving northwestern shoshone coronary artery of northwestern shoshone heart without angina pectoris; COPD, group A, by GOLD 2017 classification ([facility]); COPD exacerbation ([facility]) Allergies Active Allergy Reactions Criticality Noted Date Comments Jason Inhibitors Edema face/lips/tongue High 4 angioedema Latex 07/21/2016 Pt states he breaks out from this documented as of this encounter (statuses as of 12/29/2023) Medications ASPIRIN 81 MG PO TABSIndications:Co ronary [...] Active Additional Information Patient not taking.Reported on 12/29/2023 Levothyroxine Sodium 100 MCG Oral Tablet (Levoxyl)Indicatio ns:Hypothyroidism due to acquired atrophy of thyroid TAKE ONE TABLET BY MOUTH DAILY AT LEAST 30 MINUTES PRIOR TO FIRST MEAL OF THE DAY OR OTHER MEDS 100 Tablet 3 11/10/19 24 10:56 AM EDT 024 2024 Active Atorvastatin Calcium 80 MG Oral Tablet (Lipitor)Indicatio ns:Dyslipidemia, goal LDL below 100 TAKE ONE TABLET BY MOUTH EVERY MORNING 100 Tablet 3 09/28/19 24 1:07 PM EDT 024 Active Amiodarone HCl 200 MG Oral Tablet (Cordarone)Indicat ions:Paroxysmal atrial fibrillation (HCC) TAKE ONE TABLET BY MOUTH EVERY MORNING 100 Tablet 3 10/27/19 24 3:01 PM EDT 024 2024 Active oxyCODONE HCl 5 MG Oral Tablet (Oxy IR) Take 1 Tablet by mouth every 4 hours as needed for severe pain for up to 10 doses. 10 Tablet 11/28/19 2:18 PM EDT 024 Active Additional Information Patient not taking.Reported on 12/29/2023 Clopidogrel Bisulfate 75 MG Oral Tablet (pLAVix) Take 1 Tablet by mouth in the morning. 90 Tablet 1 11/28/19 2:18 PM EDT 024 Active Tamsulosin HCl 0.4 MG Oral Capsule (Flomax) Take 1 Capsule by mouth in the morning. 30 Capsule 11/28/19 2:18 PM EDT 024 Active Albuterol Sulfate HFA 108 (90 Base) MCG/ACT Inhalation Aerosol SolutionIndication s:COPD, group A, by GOLD 2017 classification ([facility]),COPD exacerbation ([facility]) Inhale 2 Puffs by mouth every 6 hours as needed for Shortness of Breath. 6.7 g 3 024 Active Fluticasone-Umecli din-Vilant 100-62.5-25 MCG/ACT Aerosol Powder Breath Activated (Trelegy Ellipta)Indication s:COPD, group A, by GOLD 2017 classification ([facility]),COPD exacerbation ([facility]) Inhale 1 Puff by mouth in the morning. 180 Blister Dosing Unit 3 Active Albuterol Sulfate HFA 108 (90 Base) MCG/ACT Inhalation Aerosol SolutionIndication s:COPD exacerbation ([facility]) Inhale 2 Puffs by mouth every 6 hours as needed for Shortness of Breath. 18 g 3 021 2023 Discontinued(R efill) Fluticasone-Salmet lourdes 500-50 MCG/ACT Inhalation Aerosol Powder Breath Activated (Advair Diskus)Indications :COPD, group A, by GOLD 2017 classification ([facility]) INHALE ONE PUFF BY MOUTH TWICE A DAY IN THE MORNING AND BEFORE BEDTIME 180 Each 11/19/19 24 3:50 PM EDT 024 2023 Discontinued Incruse Ellipta 62.5 MCG/ACT Inhalation Aerosol Powder Breath Activated (umeclidinium Maupin)Indication s:COPD, group A, by GOLD 2017 classification ([facility]) Inhale 1 Puff by mouth in the morning. 90 Each 12/09/19 24 12:18 PM EDT 024 2023 Discontinued Fluticasone-Umecli din-Vilant 100-62.5-25 MCG/ACT Aerosol Powder Breath Activated (Trelegy Ellipta)Indication s:COPD, group A, by GOLD 2017 classification ([facility]),COPD exacerbation ([facility]) Inhale 1 Puff by mouth in the morning. 60 Blister Dosing Unit 11 024 2023 Discontinued(R efill) documented as of this encounter (statuses as of 12/29/2023) Active Problems Problem Noted Date Diagnosed Date [...] fracture 05/09/2020 Coronary artery disease invo lving northwestern shoshone coronary artery of northwestern shoshone heart without angina pectoris 05/09/2020 Overview (12/16/2023): [...] Overview: Per COPD GOLD Classification History of AR (myocardial infarction) 07/11/2016 Abdominal aortic aneurysm (AAA) without rupture 05/09/2016 Paroxysmal atrial fibrillation 05/09/2016 Beta-blockers contraindicated 11/13/2011 HTN, goal below 140/90 09/15/2011 Hypothyroidism due to medication 05/29/2010 DYSLIPIDEMIA, GOAL LDL BELOW 100 01/25/2009 Overview (01/25/2009): Per Lipid Taxonomy. CHR ISCHEMIC HRT DIS NOS 03/31/2002 Overview (03/17/2012): Vivek documented as of this encounter (statuses as of 12/29/2023) Resolved Problems Problem Noted Date Diagnosed Date [...] as of this encounter (statuses as of 12/29/2023) Immunizations Name Administration Dates Next Due H1N1 [...] 0 02/16/1956 - 02/16/1985 Smokeless Tobacco: Never Tobacco Cessation:Counseling Given: Not Answered Alcohol Use Standard Drinks/Week Comments Yes 0 [...] Sign Reading Time Taken Comments Blood Pressure 136/72 12/29/2023 1:23 PM EST Pulse 67 12/29/2023 1:23 PM EST Temperature 36.2 C (97.2 F) 12/29/2023 1:23 PM ES T Respiratory Rate 16 12/29/2023 1:23 PM EST Oxygen Saturation 98% 12/29/2023 1:23 PM EST Inhaled Oxygen Concentration - - Weight 83.2 kg (183 lb 7 oz) 12/29/2023 1:23 PM EST Height - - Body Mass Index 28.73 11/27/2023 6:20 AM EDT documented in this encounter Progress Notes * Edgardo Sánchez, - 12/29/2023 1:31 PM EST Images from the original note were not included. Assessment and Plan Assessment & Plan Angioedema secondary to Lisinopril No recurrence of lip swelling since discontinuation of Lisinopril. Blood pressure remains controlled. -Continue off Lisinopril. COPD Reports of shortness of breath and leg numbness. Discussed the benefits of newer combined ingredient inhalers (Trelegy) over current regimen (Advair and Incruse Ellipta). -Discontinue Advair and Incruse Ellipta. -Start Trelegy. -Continue Albuterol as rescue inhaler. Coronary Artery Disease Post-stent, no current chest pain. -Continue current management. Chronic Kidney Disease (Stage 3B) Stable. -Continue current management. Diabetes Mellitus Well controlled with last A1c at 5.8 in October. -Continue current management. Follow-up To assess response to new COPD medication and overall health status. History of Present Illness Nitin Pickett is a 88 year old male that presents for Return Visit (Pt here for 2 wk f/u. No voiced concerns noted per pt.) History of Present Illness The patient, with a history of coronary artery disease, COPD, and chronic kidney disease, presents for a follow-up visit. He reports that the lip swelling, previously attributed to lisinopril, has resolved since discontinuing the medication. The patient's blood pressure remains stable off lisinopril, and he has not experienced any chest pain since his stent placement, indicating well- controlled coronary artery disease. The patient also reports numbness in the legs and shortness of breath, particularly when exerting himself. He is currently on Advair for COPD, but expresses interest in trying a new combined ingredient inhaler, either Trelegy or another similar medication, to potentially improve his respiratory symptoms. The patient's blood sugar levels have been stable, with a recent A1c of 5.8, indicating well-controlled diabetes. His chronic kidney disease, stage 3B, has also remained stable. Physical Exam Vitals: 12/29/23 1323 Temp: 36.2 C (97.2 F) Pulse: 67 Resp: 16 SpO2: 98% BP: 136/72 Physical Exam Constitutional: Appearance: Normal appearance. HENT: Head: Normocephalic and atraumatic. Eyes: Extraocular Movements: Extraocular movements intact. Pupils: Pupils are equal, round, and reactive to light. Cardiovascular: Rate and Rhythm: Normal rate and regular rhythm. Pulmonary: Effort: Pulmonary effort is normal. Breath sounds: Wheezing present. No rhonchi or rales. Musculoskeletal: Cervical back: Normal range of motion. Neurological: General: No focal deficit present. Mental Status: He is alert and oriented to person, place, and time. Psychiatric: Mood and Affect: Mood normal. Behavior: Behavior normal. Wrap-Up Time: Total time today was 41 minutes excluding any time spent in the performance of separately billed services. Text in this note was generated using an ambient documentation service. I discussed the use of a device to record and summarize our discussion today. All persons present during the encounter consented to its use. * Felecia Antoine LPN - 12/29/2023 1:28 PM EST Images from the original note were not included. The importance of having a yearly diabetic eye exam has been discussed with patient. Order and/or Referral placed along with patient instructions. Provider made aware. Felecia Antoine LPN Diabetic Retinopathy: Evaluating Your Eyes Diabetic retinopathy is a condition that happens when diabetes damages blood vessels in the rear ofthe eye. It can lead to vision loss. To help catch it early, have a complete dilated eye exam at least once a year. During the exam, the eye healthcare provider will review your medical history, examine your eyes, and check your vision. Women who are and have pre-existing type 1 or type 2 diabetes have an increased risk of retinopathy. Women with diabetes should have an eye exam before or in the first trimester. They should continue to be monitored every trimester and for 1 year after delivery, depending on the severity of the retinopathy. The retina is the light-sensitive part of the eye that allows you to see. High blood sugar can damage blood vessels of the retina and cause them to leak or bleed. This damage can lead to abnormal blood vessel growth. This condition is called diabetic retinopathy. You may not have symptoms early in the disease. Later, there may be floaters, blurred vision, or poor night vision. There may also be partial or complete vision loss. Early cases of diabetic retinopathy can be treated by carefully controlling blood sugar, blood pressure, and cholesterol. Surgery or laser treatments may help restore lost vision. Laser surgery can shrink abnormal blood vessels or close ones that are leaking. Medicines injected in the eye can help decrease swelling of the retina. Home care Take all medicines, including insulin or oral diabetic medicine, exactly as prescribed. Follow the diet advised by your healthcare provider. If you have high cholesterol, follow a low-fat, low-cholesterol diet. Monitor blood sugars as advised. Try to achieve your ideal weight. If you smoke, quit smoking. Tobacco use worsens the effect of diabetes on your blood vessels. If you have high blood pressure, consider buying an automatic blood pressure machine. These are available at most pharmacies. Use this to monitor your blood pressure. Report your blood pressure readings to your healthcare provider. Exercise regularly. Follow-up care Follow up with your healthcare provider, or as advised. You must have a complete eye exam at least once a year, more often if needed. Untreated diabetic retinopathy can lead to complete loss of vision. Occupational therapists can help you adapt to any vision loss you have, including learning techniques to safely administer insulin. When to seek medical advice Call your healthcare provider right away if any of these occur. Increasing blurriness or any sudden changes in your vision Sudden flashes of light inside your eye New floaters (small dots or strings that seem to be moving across your field of vision) Eye pain, redness, or discharge from your eyelid New dark spots appearing in your field of vision Halos around lights Dimness of vision Partial or complete loss of vision Women with diabetes should have a complete eye exam before becoming , or as soon as possible when they find out they are . Retinopathy sometimes worsens during . Your eye exam Your eye healthcare provider uses an eye chart and other tools to check your vision. Then he or sheexamines your eyes for signs of disease. You are given eye drops to widen (dilate) your pupils. Youmay have one or more of the following tests: Tonometry to measure fluid pressure inside the eye. Slit lamp exam to allow the healthcare provider to view the structures of your eye. Ultrasound to create an image of the eye using sound waves. Ultrasound may be used if blood is found in the clear gel that fills the eye (vitreous). Ocular coherence tomography (OCT) to create an image of the retina using light waves. This shows ifthere is fluid leaking into certain parts of the eye. It can also measure the thickness of the retina. Fluorescein angiography This test may be done to check the health of the inside lining of the eye (retina). It also checks the tiny blood vessels (capillaries) that carry blood to the retina. During the test: Photographs are taken of the retina. A dye is then injected into the bloodstream through the arm or hand. The dye travels to the capillaries in the eye. More photographs are taken of the retina. The dye causes the capillaries to stand out on the photographs. You may feel brief nausea during the procedure. For a few hours after the test, your skin, eyes, and urine may appear yellow. Talk with your healthcare provider for more information about this test. Date Last Reviewed: 07/18/201519990519-0725 [employer]. [address] [place] [address], [place] [address]. All rights reserved. This information is not intended as a substitute for professional medical care. Always follow your healthcare professional's instructions. documented in this encounter Plan of Treatment Upcoming Encounters Date Type Department Care Team (Late st Contact Info) Description 12/30/2023 10:10 AM EST Office Visit Vascular Surgery, [facility] [address] [place] [address] Saul Crenshaw MD [address] [place] [address] 01/04/2024 2:30 PM EST Home Visit [facility] [address] [place] [address] Christ Early, DIANNA [address] [place] [address] 02/04/2024 9:00 AM EST Home Visit [facility] [address] [place] [address] Yon Bell PA-C [address] [place] [address] 04/12/2024 10:30 AM EST Office Visit Cardiology, [facility] [address] [place] [address] Shaquille Le DO [address] [place] [address] 08/11/2024 10:20 AM EDT Office Visit [facility] [address] [place], [place] [address] Gabi Vinson CRNP [address] [place] [address] 11/15/2024 10:20 AM EDT Office Visit [facility] [address] [place] [id number] Edgardo Sánchez DO [address] [place] [id number] Scheduled Orders Name Type Priority Associated Diagnoses Orde r Schedule PHOSPHORUS Lab Routine Chronic kidney disease, stage 3b (HCC) Ordered: 12/29/2023 COMPREHENSIVE METABOLIC PANEL Lab Routine Chronic kidney disease, stage 3b (HCC) Expected: 12/29/2023 (Approximate), Expires: 12/28/2024 HEMOGLOBIN A1C Lab Routine Type 2 diabetes mellitus with stage 3b chronic kidney disease, without long-term current use of insulin (HCC) Type 2 diabetes mellitus with hemoglobin A1c goal of less than 8.0% (HCC) Expected: 12/29/2023 (Approximate), Expires: 12/28/2024 ALBUMIN / CREATININE RATIO, URINE Lab Routine Type 2 diabetes mellitus with stage 3b chronic kidney disease, without long-term current use of insulin (HCC) Expected: 12/29/2023 (Approximate), Expires: 12/28/2024 LIPID PANEL WITH DIRECT LDL IF TG IS HIGH Lab Routine Iliac artery aneurysm, bilateral (HCC) Expected: 12/29/2023, Expires: 12/28/2024 Health Maintenance Due Date Last Done Comments Adult Wellness Visit 2002 *BISPHONATE OR OTHER ACCEPTABLE MEDICATION NEEDED FOR OSTEOPOROSIS (REFER TO SMARTSET #1146) 05/11/2020 Diabetic Eye Exam 01/20/2023 01/20/2022, 01/29/2000 Diabetic Foot Exam 06/04/2023 06/03/2022 COVID-19 Vaccine () 10/18/2023 CKD PHOS USE SMARTSET 65499 01/15/202412/18, 06/03/2021, 04/24/2021, Additional history exists HbA1c 05/10/2024 11/11/2023, 12/18, 01/20/2022, Additional history exists TSH 11/10/2024 11/11/2023, 08/18, 01/14/2023, Additional history exists Albumin/Creatinine Ratio 11/15/2024 024, 01/16/2023, 06/03/2021, Additional history exists O2 ASSESSMENT COMPLETED IN PAST YEAR FOR COPD 11/26/2024 11/27/2023 CKD HGB USE SMARTSET [id number] 11/27/202411/27, 11/27/2023, 11/16/2023, Additional history exists Depression Screening 11/30/2024 12/01/2023, 11/11/19 DTap/Tdap Vaccines (3 - Td or Tdap) 06/09/2032 06/09/2022, 09/15/2011, 01/16/1994 VITAMIN D LEVEL ONCE IN A LIFETIME-USE SMARTSET# [id number] Completed 03/29/2012, 10/24/2008 Pneumococcal Vaccine: 65+ Years [...] this encounter Medical Devices Implanted Type Area Weight Reducing Technician Device Identifier Shelf Expiration Date Model / Serial / Lot Lens Intraoc 19.0 - [id number] - [id number] Implanted:Qty: 1 on 06/18/2021 by Gilmer Davalos MD at OR [facility] Right: Eye [employer] 02/15/2026 [id number] / [id number] / [id number] Plug Vasc Ampl 12mm 9-Plug-012 - [id number] Implanted:Qty: 1 on 11/27/2023 [place] Crenshaw [place] [facility] [place] Right: Iliac [employer] [id number] 2027 9-PLUG-01 [id number] 11mm X 10cm X 120cm Viabahn Endoprosthesis Stent Graft, With Heparin Bioactive Surface Implanted:Qty: 1 on 11/27/2023 by Saul Crenshaw [place] [facility] [place]: Iliac [employer] [id number] 07/19/2026 [id number] / [id number] / [id number] Graft Abdominal 32x14.3ple58df Stent Control Trunk Ipsilateral System Leg Aortic Aneurysm Conformable Endoprosthesis With Active Excluder Aaa - [id number] Implanted:Qty: 1 on 11/27/2023 [place] Saul Crenshaw [place] [facility] [place]/A: Aorta [employer] [id number] 07/14/2026 [id number] / [id number] Grft Excldr 82ora34.5cm - [id number] Implanted:Qty: 1 on 11/27/2023 by Saul Crenshaw [place] [facility] [place]: Iliac [employer] 12/03/2025 [id number] / [id number] / [id number] Graft Excludr [id number] - [id number] Implanted:Qty: 1 on 11/27/2023 by Saul Crenshaw [place] [facility] [place]: Iliac [employer] [id number] 07/29/2026 [id number] / [id number] / [id number] documented as of this encounter Visit Diagnoses Diagnosis Infrarenal abdominal aortic aneurysm (AAA) without rupture (HCC)- Primary H/O endovascular stent graft for abdominal aortic aneurysm Blood vessel replaced by other means Coronary artery disease involving northwestern shoshone coronary artery of northwestern shoshone heart without angina pectoris 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) Advanced care planning/counseling discussion Other specified counseling Type 2 diabetes mellitus with stage 3b chronic kidney disease, without long-term current use of insulin ([facility])- Primary Type 2 diabetes mellitus with hemoglobin A1c goal of less than 8.0% (HCC) Chronic kidney disease, stage 3b (HCC) 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) Iliac artery aneurysm, bilateral (HCC) Aneurysm of iliac artery H/O endovascular stent graft for abdominal aortic aneurysm Blood vessel replaced by other means Coronary artery disease involving northwestern shoshone coronary artery of northwestern shoshone heart without angina pectoris COPD, group A, by GOLD 2017 classification ([facility]) COPD exacerbation ([facility]) Obstructive chronic bronchitis with exacerbation documented in this encounter Advance Directives * Full Code (Latest Code Status on File) Date Activated Date Inactivated Comments 11/27/2023 11:28 AM 11/28/2023 7:06 PM This orde r reflects the patients wishes and were consensually agreed upon. Question Answer Comments Discussion of Advance Direct matt occurred with: Not Discussed due to patient's condition Care Teams Folder And Notcher Relationship Specialty Start Date End Date Edgardo Sánchez DO [address] [place] [id number] PCP - General Family Medicine 03/09/19 documented as of this encounter
--- OUTSIDE RECORDS SUMMARY | 2024-04-03 21:56 | External Medical Summary | Summary of Care ---
Author Name Unknown Organization [facility] Address [address] [place] [address] Phone [phone] Care Team Providers Care Deboning Team Leader Name Role Phone Edgardo Sánchez DO Primary Care Provider Reason for Visit * Reason Onset Date Comments [facility]: Engagement 12/23/2023 Encounter Details Date Type Department Care Team (Late st Contact Info) Description 12/23/2023 Telephone [facility], [facility] [address] [place] [address] Shannan Ray OSA [address] [place] [address] [facility]: Engagement Allergies Active Allergy Reactions Criticality Noted Date Comments Jason Inhibitors Edema face/lips/tongue High 4 angioedema Latex 07/21/2016 Pt states he breaks out from this documented as of this encounter (statuses as of 12/23/2023) Medications Medication Sig Dispensed Refills Start Date End Date Status ASPIRIN 81 MG PO TABSIndications:Coron syed atherosclerosis 1 daily 0 0 05/17/2007 Active VITAMIN D 1000 UNIT PO CAPS 1 capsule daily 0 0 12/08/2008 Active Multi-Vitamins Oral Tablet Take 1 Tablet by mouth in the morning. Active Albuterol Sulfate HFA 108 (90 Base) MCG/ACT Inhalation Aerosol SolutionIndications:C OPD exacerbation (HCC) Inhale 2 Puffs by mouth [...] 2017 classification ([facility]) INHALE ONE PUFF BY MOUTH TWICE [...] MCG/ACT Inhalation Aerosol Powder Breath Activated (umeclidinium [place])Indications:C OPD, group A, by GOLD 2017 classification ([facility]) Inhale 1 Puff by mouth in the morning. 90 Each 12/02/2023 Active Hospital, Clinic, or Other Facility Administered Medication Ordered Dose Route Frequency Start Date End Date Status sodium chloride 0.9 % flush/inj 10 mL 10 mL IV PUSH ONCE 12/23/2023 12/23/2023 Active documented as of this encounter (statuses as of 12/23/2023) Active Problems Problem Noted Date Diagnosed Date [...] fracture 05/09/2020 Coronary artery disease invo lving [place] coronary artery of [place] heart without angina pectoris 05/09/2020 Overview: Nuclear [...] Overview: Per COPD GOLD Classification History of CT (myocardial infarction) 07/11/2016 Abdominal aortic aneurysm (AAA) without rupture 05/09/2016 Paroxysmal atrial fibrillation 05/09/2016 Beta-blockers contraindicated 11/13/2011 HTN, goal below 140/90 09/15/2011 Hypothyroidism due to medication 05/29/2010 DYSLIPIDEMIA, GOAL LDL BELOW 100 01/25/2009 Overview: Per Lipid Taxonomy. CHR ISCHEMIC HRT DIS NOS 03/31/2002 Overview: [place] documented as of this encounter (statuses as of 12/23/2023) Resolved Problems Problem Noted Date Diagnosed Date [...] Overview: Modified per Carotid Stenosis protocol #10 ADVANCE DIRECTIVE INFORMATION 07/29/2004 12/21/2023 Overview: Yes, Patient instructed to provide copy of advance directive for provider to review and to be scanned into Electronic Medical Record 08/10/2008 Patient needs to bring an updated copy of Living will since has . Silva Sanabria RN 02/22/2009 Patient has updated it and now needs to bring it in. Silva Sanabria RN hx of pneumonectomy 03/14/2000 07/05/19 20 Overview: Historical. Calculus of kidney 9 ACUTE MYOCARDIAL INFARCTION; OTHER ANTERIOR WALL,EPISODE CARE UNSPECIFIED 07/11/2016 Dermatophytosis of nail 11/17 Mixed dyslipidemia 9 Overview: Per Lipid Taxonomy. documented as of this encounter (statuses as of 12/23/2023) Immunizations Name Administration Dates Next Due H1N1 [...] on file documented as of this encounter Miscellaneous Notes * Telephone Encounter - Shannan Ray OSA - 12/23/2023 1:15 PM EST Per Request reschedule appt.. Called s/w pt he advised 01/03 at 2:30pm is a good date and time. documented in this encounter Plan of Treatment Upcoming Encounters Date Type Department Care Team (Late st Contact Info) Description 12/29/2023 1:40 PM EST Office Visit Family Practice [facility] [address] [id number] Edgardo Sánchez DO [address] [address] 12/30/2023 10:10 AM EST Office Visit Vascular Surgery, [facility] [address] [address] [facility] [address] [facility] [address] 01/04/2024 2:30 PM EST [facility] Visit [facility] [place], [facility] [address] [address] Christ Early RN [address] [place] [id number] 02/04/2024 9:00 AM EST [facility] Visit [facility] [address] [place] [address] Yon Bell PA-C [address] [place] [address] 04/12/2024 10:30 AM EST Office Visit Cardiology, [facility] [address] [place] [address] Shaquille Le, DO [address] [place] [address] 08/11/2024 10:20 AM EDT Office Visit Family [facility] [address] [place] [address] Gabi Vinson CRNP [address] [place] [address] 11/15/2024 10:20 AM EDT Office Visit [facility] [address] [place] [address] Edgardo Sánchez DO [address] [place] [address] Health Maintenance Due Date Last Done Comments Adult Wellness Visit 2002 *BISPHONATE OR OTHER ACCEPTABLE MEDICATION NEEDED FOR OSTEOPOROSIS (REFER TO SMARTSET #1146) 05/11/2020 Diabetic Eye Exam 01/20/2023 01/20/2022, 01/29/2000 Diabetic Foot Exam 06/04/2023 06/03/2022 COVID-19 Vaccine ( season) 2023 Influenza Vaccine (FLU shot) (#1) 2023 11/16/2022, 11/09/2021, 11/19/2020, Additional history exists CKD PHOS USE SMARTSET 09042 01/15/202412/18, 06/03/2021, 04/24/2021, Additional history exists HbA1c 05/10/2024 11/11/2023, 12/18, 01/20/2022, Additional history exists TSH 11/10/2024 11/11/2023, 08/18, 01/14/2023, Additional history exists Albumin/Creatinine Ratio 11/15/2024 024, 01/16/2023, 06/03/2021, Additional history exists O2 ASSESSMENT COMPLETED IN PAST YEAR FOR COPD 11/26/2024 11/27/2023 CKD HGB USE SMARTSET 71531 11/27/202411/27, 11/27/2023, 11/16/2023, Additional history exists Depression Screening 11/30/2024 12/01/2023, 11/11/19 DTap/Tdap Vaccines (3 - Td or Tdap) 06/09/2032 06/09/2022, 09/15/2011, 01/16/1994 VITAMIN D LEVEL ONCE IN A LIFETIME-USE SMARTSET# 25463 Completed 03/29/2012, 10/24/2008 Pneumococcal Vaccine: 65+ Years [...] this encounter Medical Devices Implanted Type Area Justowriter Operator Device Identifier Shelf Expiration Date Model / Serial / Lot Lens Intraoc 19.0 - [id number] - [id number] Implanted:Qty: 1 on 06/18/2021 by Gilmer Davalos MD at OR [facility] Right: Eye [employer] 02/15/2026 [id number] / [id number] Plug Vasc Ampl 12mm 9-Plug-012 - [id number] Implanted:Qty: 1 on 11/27/2023 by Saul Crenshaw MD at OR [facility] Right: Iliac [employer] [id number] 2027 9-PLUG-01 [id number] 11mm X 10cm X 120cm Viabahn Endoprosthesis Stent Graft, With Heparin Bioactive Surface Implanted:Qty: 1 on 11/27/2023 by Saul Crenshaw MD at OR [facility] Right: Iliac [employer] [id number] 07/19/2026 [id number] / [id number] / [id number] Graft Abdominal 32x14.3oti96xp Stent Control Trunk Ipsilateral System Leg Aortic Aneurysm Conformable Endoprosthesis With Active Excluder Aaa - [id number] Implanted:Qty: 1 on 11/27/2023 by Saul Crenshaw MD at OR [facility] N/A: Aorta [employer] [id number] 07/14/2026 [id number] / [id number] Grft Excldr 51gcw22.5cm - [id number] Implanted:Qty: 1 on 11/27/2023 by Saul Crenshaw MD at OR [facility] Left: Iliac [employer] 12/03/2025 [id number] / [id number] / [id number] Graft Excludr 90qhu20x18vw - [id number] Implanted:Qty: 1 on 11/27/2023 by Saul Crenshaw MD at OR [facility] Right: Iliac [employer] [id number] 07/29/2026 [id number] / [id number] / [id number] documented as of this encounter Advance Directives * Full Code (Latest Code Status on File) Date Activated Date Inactivated Comments 11/27/2023 11:28 AM 11/28/2023 7:06 PM This orde r reflects the patients wishes and were consensually agreed upon. Question Answer Comments Discussion of Advance Direct matt occurred with: Not Discussed due to patient's condition Care Teams Deboning Team Leader Relationship Specialty Start Date End Date Edgardo Sánchez DO [address] [address] PCP - General Family Medicine 03/09/19 documented as of this encounter
--- OUTSIDE RECORDS SUMMARY | 2024-04-03 21:56 | External Medical Summary | Summary of Care ---
Author Name Unknown Organization [facility] Address [address] [place] [address] Phone [phone] Care Team Providers Care Facility Manager Histology Name Role Phone Efra Sánchezvor Ayana Primary Care Provider Reason for Referral * Precert (Within 10 days (routine)) - Authorized Specialty Diagnoses / Procedures Referred By Contac t Referred To Contact Radiology Diagnoses 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, bilateral (HCC) H/O endovascular stent graft for abdominal aortic aneurysm Procedures CT RECON ENDOVASC ANEURYSM REPAIR SURGERY PLAN Thiago Briscoe PA-C [address] [place] [address] Phone: tel: fax: Referral ID Status Reason Start Date Expiration Date V isits Requested Visits Authorized [id number] Authorized 12/30/2023 999 999 * Precert (Within 10 days (routine)) - Authorized Specialty Diagnoses / Procedures Referred By Contac t Referred To Contact Radiology Diagnoses 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, bilateral (HCC) H/O endovascular stent graft for abdominal aortic aneurysm Procedures CTA ABD/PELVIS Thiago Briscoe PA-C [address] [place] [address] Phone: tel: fax: Referral ID Status Reason Start Date Expiration Date V isits Requested Visits Authorized [id number] Authorized 12/30/2023 999 999 Reason for Visit * Reason Comments Follow Up Encounter Details Date Type Department Care Team (Late st Contact Info) Description 12/30/2023 10:10 AM EST Office Visit Vascular Surgery, [facility] [address] [place] [address] Saul Crenshaw MD [address] [facility] [place] [address] Infrarenal abdominal aortic aneurysm (AAA) without rupture (HCC)*; Iliac artery aneurysm, bilateral (HCC); H/O endovascular stent graft for abdominal aortic aneurysm Allergies Active Allergy Reactions Criticality Noted Date Comments Jason Inhibitors Edema face/lips/tongue High 4 angioedema Latex 07/21/2016 Pt states he breaks out from this documented as of this encounter (statuses as of 12/30/2023) Medications ASPIRIN 81 MG PO TABSIndications:Cor onary [...] BY MOUTH EVERY MORNING 100 Tablet 3 08/12/202 4 1:07 PM EDT 03/16/19 24 Active [...] A, by GOLD 2017 classification ([facility]),COPD exacerbation (HCC) Inhale 2 Puffs by mouth every 6 hours as needed for Shortness of Breath. 6.7 g 3 4 10:57 AM EST 12/29/19 Active Fluticasone-Umeclid in-Vilant 100-62.5-25 MCG/ACT Aerosol Powder Breath Activated (Trelegy Ellipta)Indications :COPD, group A, by GOLD 2017 classification ([facility]),COPD exacerbation (HCC) Inhale 1 Puff by mouth in the morning. 180 Blister Dosing Unit 3 12/29/19 24 Active documented as of this encounter (statuses as of 12/30/2023) Active Problems Problem Noted Date Diagnosed Date [...] fracture 05/09/2020 Coronary artery disease invo lving [place] coronary artery of [place] heart without angina pectoris 05/09/2020 Overview (12/16/2023): [...] Overview: Per COPD GOLD Classification History of AK (myocardial infarction) 07/11/2016 Abdominal aortic aneurysm (AAA) without rupture 05/09/2016 Paroxysmal atrial fibrillation 05/09/2016 Beta-blockers contraindicated 11/13/2011 HTN, goal below 140/90 09/15/2011 Hypothyroidism due to medication 05/29/2010 DYSLIPIDEMIA, GOAL LDL BELOW 100 01/25/2009 Overview (01/25/2009): Per Lipid Taxonomy. CHR ISCHEMIC HRT DIS NOS 03/31/2002 Overview (03/17/2012): [employer] documented as of this encounter (statuses as of 12/30/2023) Resolved Problems Problem Noted Date Diagnosed Date [...] as of this encounter (statuses as of 12/30/2023) Immunizations Name Administration Dates Next Due H1N1 [...] 02/16/1985 Smokeless Tobacco: Never Tobacco Cessation:Counseling Given: No Alcohol Use Standard Drinks/Week Comments Yes 0 [...] Sign Reading Time Taken Comments Blood Pressure 152/82 12/30/2023 10:07 AM EST Pulse 68 12/30/2023 10:07 AM EST Temperature 35.9 C (96.7 F) 12/30/2023 10:[address] Respiratory Rate - - Oxygen Saturation - - Inhaled Oxygen Concentration - - Weight 84.2 kg (185 lb 9.6 oz) 12/30/2023 10:07 AM EST Height - - Body Mass Index 29.07 11/27/2023 6:20 AM EDT documented in this encounter Progress Notes * Thiago Briscoe PA-C - 12/30/2023 10:10 AM EST Images from the original note were not included. Date of Service: 12/30/2023 10:11 AM Nitin Pickett is a 88 year old male. Patient being seen in consultation at the request of Edgardo Sánchez DO Chief Complaint: Post op visit S/P repair of asymptomatic 6.0 cm AAA with EVAR, RCIA extension graft, coil embolization of RIIA and viabahn stent into REIA on 11/27/[address] Crenshaw Since surgery patient is feeling "great" Eating 3 times per day No urinary or BM issues Still having nocturia, as pre op. 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 HPI: Patient is a reformed smoker with PMH of COPD. DM, hypothyroidism, afib, CAD, and CKD ABDOMINAL AORTIC ANEURYSM: Patient denies any symptoms related to AAA. Patient denies new abdominal pain, flank pain and back pain. Size of aneurysm is 5.6 cm on sagittal view and 4.9 on axial/coronal view as detected by CT scan. FAMILY HISTORY: Family history is noncontributory. Patient reports chronic R hip pain Current Outpatient Medications Medication Sig Dispense Refill ASPIRIN 81 MG PO TABS 1 daily 0 0 VITAMIN D 1000 UNIT PO CAPS 1 capsule daily 0 0 Multi-Vitamins Oral Tablet Take 1 Tablet by mouth in the morning. Levothyroxine Sodium 100 MCG Oral Tablet (Levoxyl) [...] mouth in the morning. 90 Tablet 1 Tamsulosin HCl 0.4 MG Oral Capsule (Flomax) Take 1 Capsule by mouth in the morning. 30 Capsule 0 Albuterol Sulfate HFA 108 (90 Base) MCG/ACT Inhalation Aerosol Solution Inhale 2 Puffs by mouth every 6 hours as needed for Shortness of Breath. 6.7 g 3 Wpxdafqtdlt-Murcfrgnq-Apopgy 100-62.5-25 MCG/ACT Aerosol Powder Breath Activated (Trelegy Ellipta) Inhale 1 Puff by mouth in the morning. 180 Blister Dosing Unit 3 Diclofenac Sodium 1 % External Gel (Voltaren) Apply 4 g topically to affected area 3 times a day asneeded for Pain, Moderate. Apply to the affected knee as needed. (Patient not taking: Reported on 11/27/2023) 1100 g 5 oxyCODONE HCl 5 MG Oral Tablet (Oxy IR) Take 1 Tablet by mouth every 4 hours as needed for severe pain for up to 10 doses. (Patient not taking: Reported on 12/01/2023) 10 Tablet 0 No current facility-administered medications for this visit. Review of patient's allergies indicates: Allergen Reactions Jason Inhibitors Edema face/lips/tongue angioedema Latex Pt states he breaks out from this Patient Active Problem List Diagnosis CHR ISCHEMIC HRT DIS NOS DYSLIPIDEMIA, GOAL LDL BELOW 100 Hypothyroidism due to medication HTN, goal below 140/90 Beta-blockers contraindicated Abdominal aortic aneurysm (AAA) without rupture (HCC) Paroxysmal atrial fibrillation (HCC) History of AK (myocardial infarction) COPD, group A, by GOLD 2017 classification (HCC) Asymptomatic bilateral carotid artery stenosis Age-related osteoporosis without current pathological fracture Coronary artery disease involving [place] coronary artery of [place] heart without angina pectoris Type 2 diabetes mellitus with hemoglobin A1c goal of less than 8.0% (HCC) 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, bilateral (HCC) 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) Chronic kidney disease, stage 3b (HCC) 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) H/O endovascular stent graft for abdominal aortic aneurysm Past Medical History: Diagnosis Date Acute AK (HCC) Myocardial Infarction Atrial fibrillation (HCC) on amndr jane moser Benign neoplasm of colon colonoscopy, [place] Benign neoplasm of colon 04/19/07 adenomatous repeat colonoscopy in 3 yrs Calculus of kidney Cardiac catheterization as the cause of abnormal reaction of patient, or of later complication, without mention of misadventure at time of procedure at [place] Chest pain [facility] admission, AK rled out, on [place] service Coronary atherosclerosis [facility] History of AK (myocardial infarction) 07/11/2016 Past Surgical History: Procedure Laterality Date COLONOSCOPY W/ LESION REMOVAL, SNARE 04/23 repeat 3 yrs adenomatous COLONOSCOPY, GI REFERRAL OP may 2002 dr villarreal, miguel except for hemorrhoids. next in may 2007 COLORECTAL CANCER SCREEN; COLON 07/23/2010 diverticulosis ENDOVASCULAR REPAIR DEPLOYMENT [id number] ENDOGRAFT N/A 11/27/2023 ENDOVASCULAR INFRARENAL AORTA AND OR [id number] PROSTHESIS, INC. RADIOLOGY SUPERVISION & INTERPRETATION ONE ENDOPROSTHESIS performed by Saul Crenshaw MD at OR [facility] EXPLORE PARATHYROID GLANDS N/A 08/25/2016 PARATHYROIDECTOMY performed by Jose Alvarado DO at OR [facility] OPEN FEMORAL ARTERY EXPOSURE FOR ENDOVASCULAR PROSTHESIS, UNILAT Bilateral 11/27/2023 OPEN FEMORAL ARTERY EXPOSURE FOR ENDOVASCULAR PROSTHESIS performed by Saul Crenshaw MD at [facility] PERCUTANEOUS ACCESS AND CLOSURE OF FEMORAL ARTERY Bilateral 11/27/2023 PERCUTANEOUS ACCESS/CLOSURE FEMORAL ARTERY FOR ENDOGRAFT, INC ULTRASOUND GUIDANCE, UNILATERAL performed by Saul Crenshaw MD at [facility] REMOVE CATARACT, INSERT LENS PROSTH right REMOVE CATARACT, INSERT LENS PROSTH Right 06/18/2021 Right EXTRACAPSULAR CATARACT REMOVAL WITH INTRAOCULAR LENS performed by Gilmer Davalos MD at [facility] SINGLE LOBECTOMY, LUNG 1985 right- resected HAMARTOMA THROMBOENDARECTOMY W/PATCH,NECK INCISION 04/04/08 Right carotid endarterectomy with bovine patch angioplasty 04/04/[address] Arshad VASECTOMY 1970 Family History Problem Relation Name Age of Onset Cancer Father age 50-cancer liver Other (AAA) Other No known family hx of AAA Social History Socioeconomic History Marital status: Spouse name: Not on file Number of children: Not on file Years of education: Not on file Highest education level: Not on file Occupational History Not on file Tobacco Use Smoking status: Former Current packs/day: 0.00 Average packs/day: 1 pack/day for 28.0 years (28.0 ttl pk-yrs) Types: Cigarettes Start date: 02/16/1957 Quit date: 02/16/1985 Years since quittin.8 Smokeless tobacco: Never Vaping Use Vaping status: Never Used Substance and Sexual Activity Alcohol use: Yes Comment: rare Drug use: No Sexual activity: Not Currently Partners: Female Comment: problems with impotence Other Topics Concern Not on file Social History Narrative Not on file Social Needs Financial Resource Strain: Low Risk (12/01/2023) Financial Resource Strain Do you have any trouble paying for your medications, or do you think you might in the future? (Adult - for ages 18 years and over): No Does your family have trouble paying for medicine? (Household - for ages 0-17 years): Not on file Food Insecurity: No Food Insecurity (12/01/2023) Food Insecurity Do you need food for this week? (Adult - for ages 18 years and over): No Are you able to get enough food for your family? (Household - for ages 0-17 years): Not on file Does your family need food this week? (Household - for ages 0-17 years): Not on file Do you always have enough food for your family? (Household - for ages 0-17 years): Not on file Transportation Needs: No Transportation Needs (12/01/2023) Transportation Needs Do you have trouble getting a ride to medical visits or work? (Adult - for ages 18 years and over):Not on file Does your family have a hard time getting a ride to doctors visits? (Household - for ages 0-17 years): Not on file Has lack of transportation kept you from medical appointments, meetings, work, or from getting things needed for daily living? Check all that apply. (Adult - for ages 18 years and over): No Do you (or your family) have trouble finding or paying for a ride (transportation)? (Household - for ages 0-17 years): Not on file Social Connections: Socially Integrated (12/01/2023) Social Connections How often do you feel lonely or isolated from those around you? (Adult - for ages 18 years and over): Never Housing Stability: Low Risk (12/01/2023) Housing Stability Do you currently live in a correction or have no steady place to sleep at night? (Adult - for ages 18 years and over): No Do you think you are at risk of becoming homeless? (Adult - for ages 18 years and over): Not on file Does your family worry about paying for your home or becoming homeless? (Household - for ages 0-17 years): Not on file Are you homeless or worried that you might be in the future? (Adult - for ages 18 years and over): No Are you (or your family) homeless or worried that you might be in the future? (Household - for ages0-17 years): Not on file COMPLETE REVIEW OF SYSTEMS: Constitutional: No change in weight and No fevers, sweats, or chills Eyes: No amaurosis fugax and No recent significant change in vision Neck: No lumps or masses and No significant pain in neck Pulmonary: No cough, sputum, or hemoptysis, reports COPD with some SOB Cardiac: No chest pain, No syncope, No palpitations and No edema. Reports remote history of AK GI/Abd: No abdominal pain, No change in bowel habits, No significant change in appetite and No blood in stools or black tarry stools Skin: no rash Neurologic: No TIA symptoms, No CVA symptoms and No syncope Psychiatric: No depression, No anxiety and No psychosis VITAL SIGNS: BP 152/82 (BP Site: Left Arm, BP Position: Sitting, BP Cuff Size: Regular) | Pulse 68 | Temp 35.9 C (96.7 F) (Tympanic) | Wt 84.2 kg (185 lb 9.6 oz) | BMI 29.07 kg/m | BSA 2 m GENERAL MULTI-SYSTEM PHYSICAL EXAM: GENERAL: Normal grooming habits, no acute distress and appears stated age. NECK: No masses. RESPIRATORY: CTA, good effort CARDIOVASCULAR: RRR, no heart murmurs, no edema and no varicosities. GASTROINTESTINAL: no masses present, no tenderness and abdominal aorta not palpable. SKIN: no ulcers, no rash and no induration, apparent fungal infection of bilateral feet, discoloration of toes PSYCHIATRIC: orientation to time, place and person normal and recent and remote memory normal. EYES: conjunctivae normal, eye lids normal and pupils normal. NEUROLOGIC: Cranial nerves intact, Motor function intact and Sensory exam intact LEFT GROIN: healed incision PULSE SCALE: Carotid Right:----Bruit: No Left:----Bruit: No Radial Right: 2 Left: 2 Femoral Right: 2 Left: 2 Popliteal Right: 2 Left: 2 Dorsalis Pedis Right: 3 Left: 3 Posterior Tibial Right: 1 Left: 1 PULSE SCALE: 4=Aneurysmal; 3=Normal; 2=Diminished; 1=Barely Palpable; 0=Absent DIAGNOSTIC STUDIES: 12/23/23 CTA Abd/Pelvis: 5.1 x 5.6 cm AAA sac, 2.6 cm RCIA, 1.8 cm LCIA, Type II endoleak inferiorly, from lumbars. We do not suspect Type III endoleak (as relayed in Radiology report) The above diagnostic images were directly visualized and independently interpreted by me on 12/30/2023 with results as above 09/24/23 CTA C/A/P: Tri-lobed 6.0 cm AAA, RCIA 2.8 cm, LCIA 2.2 cm. Small accessory inferior right renal artery. Nice neck length BTW main renal arteries and start of AAA 05/21/23 CTA Abd/Pelvis: AAA 5.3 x 5.5 cm, RCIA 2.9, LCIA 2.2 cm. 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 Dr. Crenshaw measured @ 5.36 cm, 5.4 cm by radiology report 05/30/22 CTA Abd/Pelvis: 5.1 cm AAA, RCIA 2.6 cm, LCIA 2.5 cm 12/10/21 CTA Abd/Pelvis 4.9 x 5.2 cm AAA on axial view, 5 cm on coronal view, 5.2 cm on sagittal view, RCIA 2.6 cm, LCIA 2.5 cm 06/04/21: CTA: 5.6 cm AAA sagittal view. 4.9 cm on axial and coronal view, RCIA 2.6 cm, LCIA 2.2 cm CARDIAC STUDIES 07/29/21 LABS: Lab Results Component Value Date/Time CREATININE - [facility] 1.9 (H) 11/28/2023 05:57 AM CREATININE - [facility] 1.7 (H) 11/27/2023 11:48 AM CREATININE - [facility] 1.5 (H) 11/16/2023 09:44 AM CREATININE - [facility] 1.4 (H) 10/12/2019 09:08 AM CREATININE - [facility] 1.3 (H) 01/14/2019 08:42 AM CREATININE - [facility] 1.5 (H) 08/23/2018 01:51 PM CREATININE, 24 HOUR URINE - [facility] 1.107 06/30/2016 07:00 AM CREATININE, RANDOM URINE - [facility] 97 11/16/2023 03:26 PM CREATININE, RANDOM URINE - [facility] 133 01/16/2023 11:35 AM CREATININE, RANDOM URINE - [facility] 139 06/03/2021 08:23 AM CREATININE, RANDOM URINE - [facility] 146 09/13/2015 09:00 AM CREATININE, RANDOM URINE - [facility] 133 09/22/2014 09:14 AM Lab Results Component Value Date/Time LDL CHOLESTEROL (CALCULATED) - [facility] 52 11/11/2023 11:20 AM LDL CHOLESTEROL (CALCULATED) - [facility] 50 10/12/2019 09:08 AM LDL CHOLESTEROL (DIRECT MEASURE) - [facility] NOT APPLICABLE 10/12/2019 09:08 AM LDL CHOLESTEROL (DIRECT MEASURE) - [facility] 54 03/28/2014 09:12 AM The above clinical labs were reviewed by me on 12/30/23 IMPRESSIONS: S/P repair of asymptomatic 6.0 cm AAA with EVAR, RCIA extension graft, coil embolization of RIIA and viabahn stent into REIA on 11/27/[address] Crenshaw Left groin incision has healed Post op CTA revealed reduction in sac size, Type II endoleak inferior aspect of sac, from lumbar arteries Mildly impaired LV function, LVEF of 49%, no ischemia on DSE. Follows with [facility], most recent studies & F/U impressions: Chart reviewed. Lexiscan revealed evidence of an old AK (known) without active ischemia. Patient is high risk for a necessary procedure. Resting echocardiography may be helpful to evaluate systolic function and valvular status prior to surgery though not absolutely necessary. Besides the echo as mentioned above, further cardiac evaluation does not appear to be needed. Recommend continuation of aspirin and amiodarone without perioperative interruption. Hold lisinopril AM of procedure. TSH and LFT's ordered as routine monitoring of chronic amiodarone therapy. Happy to see and discuss with patient if needed/requested. 09/09/23 ECHO shows evidence of the old heart attack. Heart function is normal. EF 50 to 54%. Only mild valve issues noted along with a mildly enlarged aortic root. Overall, echo is ok. Pepe Adam PA-C Department of Cardiology COPD DM Hypothyroidism A fib CAD CKD III, baseline creat 1.5, GFRs in mid 40's S/P R CEA Scoliosis of lumber spine PLAN: Patient was counseled on the pathophysiology and natural history of AAA and KALIE aneurysms Continue ASA 81 mg daily for antiplatelet benefits Continue Lipitor 80 mg daily for Pleiotropic effects of statins RTC 6 months @ [facility] with CTA abd and pelvis 1 wk prior. The patient was seen and examined with Zach Crenshaw MD. BRITTNI Cook PA-C Section of Vascular and [place] [address] I performed a history and physical examination of the patient and discussed the management with thePhysician Cognos Tm1 Developer, Thiago Briscoe PA-C. I reviewed the Physician Cognos Tm1 Developer's note and agree with the documented findings and plan of care. Mr. Pickett returns for s/p EVAR for 5.6 cm AAA on 11/27/23. He underwent coil embolized the R IIAand covered this with extension limb given the saccular appearance of the distal R KALIE. A small right accessory renal artery was also sacrificed in order to gain adequate seal zone for the EVAR. His renal function has remained within range of preoperative GFR. 30-40 range. The CTA today shows a type 2 endoleak. In the mid aortic sac that correlates with a pair of lumbar arteries noted on the preoperative CTA. There is some contrast behind the left aortic stent graft iliac limb. I don't think this communicates with the AAA. I measure the AAA sac to measure 5.5 cm in widest diameter. He can stop plavix and continue baby aspirin. He will stop flomax as well. CTA abd and pelvis 1 wk prior. Our visit in 6 months. Saul Crenshaw MD Vascular Surgeon Department of Vascular Surgery [facility] Saul Crenshaw MD Vascular Surgeon Department of Vascular Surgery [facility] documented in this encounter Nursing Notes * Kelly Henley CMA - 12/30/2023 10:09 AM EST Patient stated no change in medications. Kelly Henley CMA documented in this encounter Plan of Treatment Upcoming Encounters Date Type Department Care Team (Late st Contact Info) Description 01/04/2024 2:30 PM EST Home Visit [facility] [place] [address] [place] [address] Christ Early, DIANNA [address] [place] [address] 02/04/2024 9:00 AM EST Home Visit [facility] [place] [address] [place] [address] Yon Bell PA-C [address] [place] [address] 04/12/2024 10:30 AM EST Office Visit Cardiology, [facility] [address] [place] [address] Shaquille Le DO [address] [place] [address] 06/22/2024 10:00 AM EDT Imaging Radiology [address] [place] [address] 06/22/2024 11:00 AM EDT Imaging Radiology [address] [place] [address] 06/29/2024 10:30 AM EDT Office Visit Vascular Surgery, [facility] [address] [facility] [place] [address] Saul Crenshaw MD [address] [facility] [place] [address] 08/11/2024 10:20 AM EDT Office Visit [facility] [address] [place] [address] Gabi Vinson CRNP [address] [place] [address] 11/15/2024 10:20 AM EDT Office Visit [facility] [address] [place] [address] Edgardo Sánchez DO [address] [facility] [place] [address] Scheduled Orders Name Type Priority Associated Diagnoses Orde r Schedule CTA ABD/PELVIS Medical Imaging Routine 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, bilateral (HCC) H/O endovascular stent graft for abdominal aortic aneurysm Ordered: 12/30/2023 CT RECON ENDOVASC ANEURYSM REPAIR SURGERY PLAN Medical Imaging Routine 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, bilateral (HCC) H/O endovascular stent graft for abdominal aortic aneurysm Ordered: 12/30/2023 Health Maintenance Due Date Last Done Comments Adult Wellness Visit 2002 *BISPHONATE OR OTHER ACCEPTABLE MEDICATION NEEDED FOR OSTEOPOROSIS (REFER TO SMARTSET #1146) 05/11/2020 Diabetic Foot Exam 06/04/2023 06/03/2022 COVID-19 Vaccine ( season) 2023 CKD PHOS USE SMARTSET 62098 01/15/202412/18, 06/03/2021, 04/24/2021, Additional history exists HbA1c 05/10/2024 11/11/2023, 12/18, 01/20/2022, Additional history exists TSH 11/10/2024 11/11/2023, 07/3 02/2023, 01/14/2023, Additional history exists Albumin/Creatinine Ratio 11/15/2024 024, 01/16/2023, 06/03/2021, Additional history exists O2 ASSESSMENT COMPLETED IN PAST YEAR FOR COPD 11/26/2024 11/27/2023 CKD HGB USE SMARTSET 93814 11/27/202411/27, 11/27/2023, 11/16/2023, Additional history exists Depression Screening 11/30/2024 12/01/2023, 11/11/19 Diabetic Eye Exam 12/28/2024 12/29/2023, , 01/29/2000 DTap/Tdap Vaccines (3 - Td or Tdap) 06/09/2032 06/09/2022, 09/15/2011, 01/16/1994 VITAMIN D LEVEL ONCE IN A LIFETIME-USE SMARTSET# [id number] Completed 03/29/2012, 10/24/2008 Pneumococcal Vaccine: 65+ Years [...] this encounter Medical Devices Implanted Type Area Tassel Making Machine Operator Device Identifier Shelf Expiration Date Model / Serial / Lot Lens Intraoc 19.0 - [id number] - [id number] Implanted:Qty: 1 on 06/18/2021 by Gilmer Davalos MD at OR [facility] Right: Eye [employer] 02/15/2026 [id number] / [id number] Plug Vasc Ampl 12mm 9-Plug-012 - [id number] Implanted:Qty: 1 on 11/27/2023 by Saul Crenshaw MD at OR [facility] Right: Iliac [employer] [id number] 2027 9-PLUG-[id number] 11mm X 10cm X 120cm Viabahn Endoprosthesis Stent Graft, With Heparin Bioactive Surface Implanted:Qty: 1 on 11/27/2023 by Saul Crenshaw MD at OR [facility] Right: Iliac [employer] [id number] 07/19/2026 [id number] / [id number] / [id number] Graft Abdominal 32x14.6zvf91oh Stent Control Trunk Ipsilateral System Leg Aortic Aneurysm Conformable Endoprosthesis With Active Excluder Aaa - [id number] Implanted:Qty: 1 on 11/27/2023 by Saul Crenshaw MD at [place] [facility] [place] N/A: Aorta [employer] [id number] 07/14/2026 [id number] / / [id number] Grft Excldr 89vst34.5cm - [id number] Implanted:Qty: 1 on 11/27/2023 by Saul Crenshaw MD at [place] [facility] [place] Left: Iliac [employer] 12/03/2025 [id number] / [id number] / [id number] Graft Excludr [id number] - [id number] Implanted:Qty: 1 on 11/27/2023 by Saul Crenshaw MD at [place] [facility] Right: Iliac [employer] [id number] 07/29/2026 [id number] / [id number] / [id number] documented as of this encounter Visit Diagnoses Diagnosis Infrarenal abdominal aortic aneurysm (AAA) without rupture (HCC)- Primary H/O endovascular stent graft for abdominal aortic aneurysm Blood vessel replaced by other means Coronary artery disease involving [place] coronary artery of [place] heart without angina pectoris 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) Advanced care planning/counseling discussion Other specified counseling Infrarenal abdominal aortic aneurysm (AAA) without rupture (HCC)- Primary Iliac artery aneurysm, bilateral (HCC) Aneurysm of iliac artery H/O endovascular stent graft for abdominal aortic aneurysm Blood vessel replaced by other means documented in this encounter Advance Directives * Full Code (Latest Code Status on File) Date Activated Date Inactivated Comments 11/27/2023 11:28 AM 11/28/2023 7:06 PM This orde r reflects the patients wishes and were consensually agreed upon. Question Answer Comments Discussion of Advance Direct matt occurred with: Not Discussed due to patient's condition Care Teams Facility Manager Histology Relationship Specialty Start Date End Date Edgardo Sánchez DO [address] [facility] [place] [address] PCP - General Family Medicine 03/09/19 documented as of this encounter
--- OUTSIDE RECORDS SUMMARY | 2024-04-03 21:56 | External Medical Summary | Summary of Care ---
Author Name Unknown Organization [facility] Address [address] [place] [address] Phone [phone] Care Team Providers Care Shoe Turner Name Role Phone Edgardo Sánchez Primary Care Provider Reason for Visit * Reason Onset Date Comments Scan To Read 12/29/2023 Encounter Details Date Type Department Care Team (Late st Contact Info) Description 12/29/2023 Telephone Family Practice [facility] [address] [place] [address] Felecia Antoine LPN Scan To [...] 12/29/2023 Levothyroxine Sodium 100 MCG Oral Tablet (Levoxyl)Indication [...] A, by GOLD 2017 classification ([facility]),COPD exacerbation (HCC) Inhale 2 Puffs by mouth every 6 hours as needed for Shortness of Breath. 6.7 g 3 12/29/19 24 Active Fluticasone-Umeclid in-Vilant 100-62.5-25 MCG/ACT Aerosol Powder Breath Activated (Trelegy Ellipta)Indications :COPD, group A, by GOLD 2017 classification ([facility]),COPD exacerbation (HCC) Inhale 1 Puff by mouth [...] fracture 05/09/2020 Coronary artery disease invo lving [place] coronary artery of [place] heart without angina pectoris 05/09/2020 Overview (12/16/2023): [...] Overview: Per COPD GOLD Classification History of MD (myocardial infarction) 07/11/2016 Abdominal aortic aneurysm (AAA) [...] 12/30/2023) Immunizations Name Administration Dates Next Due Diptheria/Tetanus [...] No 12/01/2023 Does the household have a [facility] source of income? (Household - for [...] encounter Miscellaneous Notes * Telephone Encounter - Deshawn Roe MD - 12/30/2023 7:18 AM EST Retinal Scan Imaging Nitin López Piyush [id number] Retinal Scan Interpretation: The images are not able to be interpreted. Diabetes Retinal Imaging Care Plan: The retinal scan results are uninterpretable - I will forward this encounter to the Ophthalmology DM Letter Pool [[id number]], they will send an unreadable retinal scan letter to the patient. I will forward this encounter to the ordering provider. Patient prefers to be seen at [facility] for follow-up evaluation. This encounter will be sent to Ophthalmology scheduling services, please schedule the patient within 3 months. Deshawn Roe MD 12/30/2023 7:18 AM * Telephone Encounter - Felecia Antoine LPN - 12/29/2023 4:26 PM EST A Diabetic Telemed Eye image was taken and requires your interpretation for Dr Sánchez. Please check your inbasket for image. Patient prefers to be seen at [facility] if a follow-up appointment is needed. documented in this encounter Plan of Treatment Upcoming Encounters Date Type Department Care Team (Late st Contact Info) Description 12/30/2023 10:10 AM EST Office Visit Vascular Surgery, [facility] [address] [place] [address] [facility] [address] [facility] [address] 01/04/2024 2:30 PM EST [facility] Visit [facility] [address] [place] [address] Christ Early, DIANNA [address] [place] [address] 02/04/2024 9:00 AM EST [facility] Visit [facility] [address] [place] [address] Yon Bell PA-C [address] [place] [address] 04/12/2024 10:30 AM EST Office Visit Cardiology, [facility] [address] [address] Shaquille Le, [address] [place] [address] 08/11/2024 10:20 AM EDT Office Visit [facility] [address] [place] [address] Gabi Vinson CRNP [address] [place] [address] 11/15/2024 10:20 AM EDT Office Visit [facility] [address] [place] [address] Edgardo Sánchez DO [address] [place] [address] Health Maintenance Due Date Last Done Comments Adult Wellness Visit 2002 *BISPHONATE OR OTHER ACCEPTABLE MEDICATION NEEDED FOR OSTEOPOROSIS (REFER TO SMARTSET #1146) 05/11/2020 Diabetic Foot Exam 06/04/2023 06/03/2022 COVID-19 Vaccine ( season) 2023 CKD PHOS USE SMARTSET 41101 01/15/202412/18, 06/03/2021, 04/24/2021, Additional history exists HbA1c 05/10/2024 11/11/2023, 12/18, 01/20/2022, Additional history exists TSH 11/10/2024 11/11/2023, 0702/2023, 01/14/2023, Additional history exists Albumin/Creatinine Ratio 11/15/2024 024, 01/16/2023, 06/03/2021, Additional history exists O2 ASSESSMENT COMPLETED IN PAST YEAR FOR COPD 11/26/2024 11/27/2023 CKD HGB USE SMARTSET 59869 11/27/202411/27, 11/27/2023, 11/16/2023, Additional history exists Depression Screening 11/30/2024 12/01/2023, 11/11/19 24 Diabetic Eye Exam 12/28/2024 12/29/2023, , 01/29/2000 DTap/Tdap Vaccines (3 - Td or Tdap) 06/09/2032 06/09/2022, 09/15/2011, 01/16/1994 VITAMIN D LEVEL ONCE IN A LIFETIME-USE SMARTSET# 23036 Completed 03/29/2012, 10/24/2008 Pneumococcal Vaccine: 65+ Years [...] this encounter Medical Devices Implanted Type Area Sales Project Coordinator Device Identifier Shelf Expiration Date Model / Serial / Lot Lens Intraoc 19.0 - [id number] - [id number] Implanted:Qty: 1 on 06/18/2021 by Gilmer Davalos MD at OR [facility] Right: Eye [employer] 02/15/2026 [id number] / [id number] Plug Vasc Ampl 12mm 9-Plug-012 - [id number] Implanted:Qty: 1 on 11/27/2023 by Saul Crenshaw MD [place] [facility] [place] Right: Iliac [employer] [id number] 2027 9-PLUG-01 [id number] 11mm X 10cm X 120cm Viabahn Endoprosthesis Stent Graft, With Heparin Bioactive Surface Implanted:Qty: 1 on 11/27/2023 by Saul Crenshaw MD [place] [facility] [place] Right: Iliac [employer] [id number] 07/19/2026 [id number] / [id number] / [id number] Graft Abdominal 32x14.4ipg59wj Stent Control Trunk Ipsilateral System Leg Aortic Aneurysm Conformable Endoprosthesis With Active Excluder Aaa - [id number] Implanted:Qty: 1 on 11/27/2023 by Saul Crenshaw MD at [place] [facility] [place] N/A: Aorta [employer] [id number] 07/14/2026 [id number] / / [id number] Grft Excldr 58vws17.5cm - [id number] Implanted:Qty: 1 on 11/27/2023 by Saul Crenshaw MD at [place] [facility] [place] Left: Iliac [employer] 12/03/2025 [id number] / [id number] / [id number] Graft Excludr 74qod28h51ab - [id number] Implanted:Qty: 1 on 11/27/2023 by Saul Crenshaw MD at [place] [facility] [place] Right: Iliac [employer] [id number] 07/29/2026 [id number] / [id number] / [id number] documented as of this encounter Advance Directives * Full Code (Latest Code Status on File) Date Activated Date Inactivated Comments 11/27/2023 11:28 AM 11/28/2023 7:06 PM This orde r reflects the patients wishes and were consensually agreed upon. Question Answer Comments Discussion of Advance Direct matt occurred with: Not Discussed due to patient's condition Care Teams Shoe Turner Relationship Specialty Start Date End Date Edgardo Sánchez DO [address] [place], [place] [address] [place] [address] PCP - General Family Medicine 03/09/19 documented as of this encounter
--- OUTSIDE RECORDS SUMMARY | 2024-04-03 21:56 | External Medical Summary | Summary of Care ---
Author Name Unknown Organization [facility] Address [address] [place] [address] Phone [phone] Care Team Providers Care Call Center Analyst Name Role Phone Edgardo Sánchez Primary Care Provider Reason for Visit * Reason Onset Date Comments Scan To Read 12/29/2023 Encounter Details Date Type Department Care Team (Late st Contact Info) Description 12/29/2023 Telephone Family Practice [facility] [address] [place] [address] Felecia Antoine LPN Scan To Read Allergies Active Allergy Reactions Criticality Noted Date Comments Jason Inhibitors Edema face/lips/tongue High 4 angioedema Latex 07/21/2016 Pt states he breaks out from this documented as of this encounter (statuses as of 12/29/2023) Medications ASPIRIN 81 MG PO TABSIndications:Cor onary [...] fracture 05/09/2020 Coronary artery disease invo lving [place] coronary artery of [place] heart without angina pectoris 05/09/2020 Overview (12/16/2023): [...] encounter Miscellaneous Notes * Telephone Encounter - Felecia Antoine LPN - 12/29/2023 4:26 PM EST A Diabetic Telemed Eye image was taken and requires your interpretation for Dr Sánchez. Please check your inbasket for image. Patient prefers to be seen at [facility] if a follow-up appointment is needed. documented in this encounter Plan of Treatment Upcoming Encounters Date Type Department Care Team (Late st Contact Info) Description 12/30/2023 10:10 AM EST Office Visit Vascular Surgery, [facility] [address] [facility] [place] [address] Saul Crenshaw MD [address] [facility] [place] [address] 01/04/2024 2:30 PM EST [facility] [address] [place] [address] Christ Early, RN [address] [place] [address] 02/04/2024 9:00 AM EST [facility] Visit [facility] [address] [place] [address] Yon Bell PA-C [address] [place] [address] 04/12/2024 10:30 AM EST Office Visit Cardiology, [facility] [address] [place] [address] Shaquille Le, DO [address] [place] [address] 08/11/2024 10:20 AM EDT Office Visit Family Practice [facility] [address] [place] [address] Gabi Vinson CRNP [address] [place] [address] 11/15/2024 10:20 AM EDT Office Visit Family [facility] [address] [place] [address] Edgardo Sánchez, DO [address] [place] [address] Health Maintenance Due Date Last Done Comments Adult Wellness Visit 2002 *BISPHONATE OR OTHER ACCEPTABLE MEDICATION NEEDED FOR OSTEOPOROSIS (REFER TO SMARTSET #1146) 05/11/2020 Diabetic Eye Exam 01/20/2023 12/29/2023, , 01/29/2000 Diabetic Foot Exam 06/04/2023 06/03/2022 COVID-19 Vaccine ( season) 2023 CKD PHOS USE SMARTSET 54474 01/15/202412/18, 06/03/2021, 04/24/2021, Additional history exists HbA1c 05/10/2024 11/11/2023, 12/18, 01/20/2022, Additional history exists TSH 11/10/2024 11/11/2023, 08/18, 01/14/2023, Additional history exists Albumin/Creatinine Ratio 11/15/2024 024, 01/16/2023, 06/03/2021, Additional history exists O2 ASSESSMENT COMPLETED IN PAST YEAR FOR COPD 11/26/2024 11/27/2023 CKD HGB USE SMARTSET 90506 11/27/202411/27, 11/27/2023, 11/16/2023, Additional history exists Depression Screening 11/30/2024 12/01/2023, 11/11/19 DTap/Tdap Vaccines (3 - Td or Tdap) 06/09/2032 06/09/2022, 09/15/2011, 01/16/1994 VITAMIN D LEVEL ONCE IN A LIFETIME-USE SMARTSET# 39267 Completed 03/29/2012, 10/24/2008 Pneumococcal Vaccine: 65+ Years [...] this encounter Medical Devices Implanted Type Area Farmworker Fryer Farm Device Identifier Shelf Expiration Date Model / Serial / Lot Lens Intraoc 19.0 - [id number] - [id number] Implanted:Qty: 1 on 06/18/2021 by Gilmer Davalos MD at [facility] Right: Eye [employer] 02/15/2026 [id number] / [id number] / [id number] Plug Vasc Ampl 12mm 9-Plug-012 - [id number] Implanted:Qty: 1 on 11/27/2023 by Saul Crenshaw MD at [place] [facility] Right: Iliac [employer] [id number] 2027 9-PLUG-01 [id number] 11mm X 10cm X 120cm Viabahn Endoprosthesis Stent Graft, With Heparin Bioactive Surface Implanted:Qty: 1 on 11/27/2023 by Saul Crenshaw MD at OR [facility] Right: Iliac [employer] [id number] 07/19/2026 [id number] / [id number] / [id number] Graft Abdominal 32x14.1hty39xm Stent Control Trunk Ipsilateral System Leg Aortic Aneurysm Conformable Endoprosthesis With Active Excluder Aaa - [id number] Implanted:Qty: 1 on 11/27/2023 by Saul Crenshaw MD at OR [facility] N/A: Aorta [employer] [id number] 07/14/2026 [id number] / / [id number] Grft Excldr 88kje28.5cm - [id number] Implanted:Qty: 1 on 11/27/2023 by Saul Crenshaw MD at OR [facility] Left: Iliac [employer] 12/03/2025 [id number] / [id number] / [id number] Graft Excludr [id number] - [id number] Implanted:Qty: 1 on 11/27/2023 by Saul Crenshaw MD at OR [facility] Right: Iliac [employer] [id number] 07/29/2026 [id number] / [id number] / [id number] documented as of this encounter Advance Directives * Full Code (Latest Code Status on File) Date Activated Date Inactivated Comments 11/27/2023 11:28 AM 11/28/2023 7:06 PM This orde r reflects the patients wishes and were consensually agreed upon. Question Answer Comments Discussion of Advance Direct matt occurred with: Not Discussed due to patient's condition Care Teams Call Center Analyst Relationship Specialty Start Date End Date Edgardo Sánchez DO [address] [place] [address] PCP - General Family Medicine 03/09/19 documented as of this encounter
--- OUTSIDE RECORDS SUMMARY | 2024-04-03 21:57 | External Medical Summary ---
Author Name Unknown Address Unknown Organization : Laboratory Report Ordering Provider Test Date Status RENETTA ESCALANTE 11/27/2023 11:41:25 Final Observation Date Value Abnormality Reference (Units ) Status Glucose Point of Care 11/27/2023 11:41:25 138 Above high normal 70-120 (mg/dL) Final Performing Location
--- OUTSIDE RECORDS SUMMARY | 2024-04-03 21:57 | External Medical Summary | Summary of Care ---
Author Name Unknown Organization [facility] Address [address] [place] [address] Phone [phone] Care Team Providers Care Bias Cutter Name Role Phone Edgardo Sánchez DO Primary Care Provider Reason for Visit * Reason Onset Date Comments [facility]: Screening 11/30/2023 Encounter Details Date Type Department Care Team (Late st Contact Info) Description 11/30/2023 Telephone [facility], [place] [address] [place] [phone] Marlene Macdonald, STRIPPING MACHINE OPERATOR [address] [place] [address] [facility]: Screening Allergies Active Allergy Reactions Criticality Noted Date Comments Latex 07/21/2016 Pt states he breaks out from this documented as of this encounter (statuses as of 11/30/2023) Medications Medication Sig Dispensed Refills Start Date [...] of Breath. 18 g 3 11/21/2020 Active Diclofenac Sodium 1 % External Gel (Voltaren)Indications [...] OR OTHER MEDS 100 Tablet 3 03/12/2023 Active Atorvastatin Calcium 80 MG Oral Tablet (Lipitor)Indications: Dyslipidemia, goal LDL below 100 TAKE ONE TABLET BY MOUTH EVERY MORNING 100 Tablet 3 03/16/2023 Active Lisinopril 10 MG Oral Tablet (Prinivil) TAKE ONE TABLET BY MOUTH IN THE MORNING 90 Tablet 2 04/20/2023 Active Amiodarone HCl 200 MG Oral Tablet (Cordarone)Indication s:Paroxysmal atrial fibrillation (HCC) TAKE ONE TABLET BY MOUTH EVERY MORNING 100 Tablet 3 07/21/2023 Active Incruse Ellipta 62.5 MCG/ACT Inhalation Aerosol Powder Breath Activated (umeclidinium [place])Indications:C OPD, group A, by GOLD 2017 classification ([facility]) Inhale 1 Puff by mouth in the morning. 90 Each 11/16/2023 Active Fluticasone-Salmetero l 500-50 MCG/ACT Inhalation Aerosol Powder Breath Activated (Advair Diskus)Indications:CO PD, group A, by GOLD 2017 classification ([facility]) INHALE ONE PUFF BY MOUTH TWICE A DAY IN THE MORNING AND BEFORE BEDTIME 180 Each 11/16/2023 Active oxyCODONE HCl 5 MG Oral Tablet (Oxy IR) Take 1 Tablet by mouth every 4 hours as needed for severe pain for up to 10 doses. 10 Tablet 11/28/2023 Active Clopidogrel Bisulfate 75 MG Oral Tablet (pLAVix) Take 1 Tablet by mouth in the morning. 90 Tablet 1 11/29/2023 Active Tamsulosin HCl 0.4 MG Oral Capsule (Flomax) Take 1 Capsule by mouth in the morning. 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 rupture 12/18/2021 Iliac artery aneurysm, bilateral 12/18/2021 Type 2 diabetes mellitus wit h hemoglobin A1c goal of less than 8.0% 05/22/2021 Asymptomatic bilateral carotid artery stenosis 0 05/09/2020 Age-related osteoporosis wit hout current pathological fracture 05/09/2020 Coronary artery disease invo lving [place] coronary artery of [place] heart without angina pectoris 05/09/2020 COPD, group A, by GOLD 2017 classification 11/27 Overview: Per COPD GOLD Classification History of NE (myocardial infarction) 07/11/2016 Abdominal aortic aneurysm (AAA) [...] as of this encounter (statuses as of 11/30/2023) Resolved Problems Problem Noted Date Diagnosed Date [...] as of this encounter (statuses as of 11/30/2023) Immunizations Name Administration Dates Next Due H1N1 [...] Date Recorded PHQ Adult Total Score 0 11/11/2023 Hunger Vital Sign Answer Date Recorded Worried About Running Out of Food in the Last Ye ar Never true 10/12/2019 Ran Out of Food in the Last Year Never true 10/12/2019 Personal Safety Answer Date Recorded Do you feel unsafe or have concerns for your saf ety? No 11/27/2023 Do you have concerns for you r family's safety? (Household - for ages 0-17 years) Not on file 11/27/2023 Utilities Answer Date Recorded Do you have trouble paying y our heating, water, or electric bill? No 11/27/2023 Is your family able to pay t he heat, water, or electric bill? (Household - for ages 0-17 years) Not on file 11/27/2023 Does your family have access to good internet? (Household - for ages 0-17 years) Not on file 11/27/2023 Social Connections Answer Date Recorded How often do you feel lonely or isolated from those around you? (Adult - for ages 18 years and over) Not on file 08/04/2023 Transportation Needs Answer Date Record ed Do you have trouble getting a ride to medical visits or work? (Adult - for ages 18 years and over) Not on file 11/27/2023 Does your family have a hard time getting a ride to doctors visits? (Household - for ages 0-17 years) Not on file 11/27/2023 Has lack of transportation k ept you from medical appointments, meetings, work, or from getting things needed for daily living? Check all that apply. No 11/27/2023 Do you (or your family) have trouble finding or paying for a ride (transportation)? (Household - for ages 0-17 years) Not on file 11/27/2023 Housing Stability Answer Date Recorded Do you currently live in a s helter or have no steady place to sleep at night? (Adult - for ages 18 years and over) Not on file 11/27/2023 Do you think you are at risk of becoming homeless? (Adult - for ages 18 years and over) Not on file 11/27/2023 Does your family worry about paying for your home or becoming homeless? (Household - for ages 0-17 years) Not on file 1 Are you homeless or worried that you might be in the future? No 11/27/2023 Are you (or your family) john eless or worried that you might be in the future? (Household - for ages 0-17 years) Not on file Food Insecurity Answer Date Recorded Do you need food for this week? No 11/27/2023 Are you able to get enough f ood for your family? (Household - for ages 0-17 years) Not on file 11/27/2023 Does your family need food t his week? (Household - for ages 0-17 years) Not on file 11/27/2023 Do you always have enough fo od for your family? (Household - for ages 0-17 years) Not on file 11/27/2023 Sex and Gender Information Value Date Recorded Sex Assigned at Male 10/12/2019 8:18 AM EDT Gender Identity Male 10/12/2019 8:18 AM EDT Sexual Orientation Straight 10/12/2019 8: 18 AM EDT Job Start Date Occupation Industry Not on file Not on file Not on file documented as of this encounter Miscellaneous Notes * Telephone Encounter - Marlene Macdonald LPN - 11/30/2023 11:08 AM EDT Nitin Pickett was referred as a potential candidate for enrollment for [facility]. A review of this chart was completed and: Nitin meets criteria for [facility]. Jump to Initiation Referring care team was notified via : Epic communication documented in this encounter Plan of Treatment Upcoming Encounters Date Type Department Care Team (Late st Contact Info) Description 12/01/2023 12:30 PM EDT Home Visit [facility], [facility] [address] [id number] Christ Early, RN [address] [id number] 12/16/2023 9:40 AM EDT Home Visit [facility], [facility] [address] [address] Yon Bell PA-C [address] [address] Lashanda Putnam, Community Health Attending Anesthesiologist [address] [place] [address] 12/23/2023 10:00 AM EST Imaging Radiology [facility] 1st Floor, [place] [address] [place] [address] 12/30/2023 10:10 AM EST Office Visit Vascular Surgery, [facility] [address] [facility] [address], [address] [address] Saul Crenshaw MD [address] [place] [address] 04/12/2024 10:30 AM EST Office Visit Cardiology, [facility] [address] [facility] [place] [address] Shaquille Le, DO [address] [place] [address] 08/11/2024 10:20 AM EDT Office Visit Family Practice [facility] [address] [facility] [address] [address] Gabi Vinson CRNP [address] [place] [address] 11/15/2024 10:20 AM EDT Office Visit Family Practice [facility] [address] [facility] [address] [address] Edgardo Sánchez DO [address] [facility] [place] [address] Health Maintenance Due Date Last Done Comments Adult Wellness Visit 2002 *BISPHONATE OR OTHER ACCEPTABLE MEDICATION NEEDED FOR OSTEOPOROSIS (REFER TO SMARTSET #1146) 05/11/2020 Diabetic Eye Exam 01/20/2023 01/20/2022, 01/29/2000 Diabetic Foot Exam 06/04/2023 06/03/2022 COVID-19 Vaccine ( season) 2023 Influenza Vaccine (FLU shot) (#1) 2023 11/16/2022, 11/09/2021, 11/19/2020, Additional history exists CKD PHOS USE SMARTSET 11030 01/15/202412/18, 06/03/2021, 04/24/2021, Additional history exists HbA1c 05/10/2024 11/11/2023, 12/18, 01/20/2022, Additional history exists Depression Screening 11/10/2024 11/11/2023 TSH 11/10/2024 11/11/2023, 08/18, 01/14/2023, Additional history exists Albumin/Creatinine Ratio 11/15/2024 024, 01/16/2023, 06/03/2021, Additional history exists O2 ASSESSMENT COMPLETED IN PAST YEAR FOR COPD 11/26/2024 11/27/2023 CKD HGB USE SMARTSET 97265 11/27/202411/27, 11/27/2023, 11/16/2023, Additional history exists DTap/Tdap Vaccines (3 - Td or Tdap) 06/09/2032 06/09/2022, 09/15/2011, 01/16/1994 VITAMIN D LEVEL ONCE IN A LIFETIME-USE SMARTSET# 32804 Completed 03/29/2012, 10/24/2008 Pneumococcal Vaccine: 65+ Years [...] this encounter Medical Devices Implanted Type Area Audio/Visual Operator Device Identifier Shelf Expiration Date Model / Serial / Lot Lens Intraoc 19.0 - [id number] - [id number] Implanted:Qty: 1 on 06/18/2021 by Gilmer Davalos MD at OR [facility] Right: Eye [employer] 02/15/2026 [id number] / [id number] Plug Vasc Ampl 12mm 9-Plug-012 - [id number] Implanted:Qty: 1 on 11/27/2023 by Saul Crenshaw MD [place] [facility] [place]: Iliac [employer] [id number] 2027 9-PLUG-01 / [id number] 11mm X 10cm X 120cm Viabahn Endoprosthesis Stent Graft, With Heparin Bioactive Surface Implanted:Qty: 1 on 11/27/2023 by Saul Crenshaw MD [place] [facility] [place]: Iliac [employer] [id number] 07/19/2026 [id number] / [id number] / [id number] Graft Abdominal 32x14.8afv55tv Stent Control Trunk Ipsilateral System Leg Aortic Aneurysm Conformable Endoprosthesis With Active Excluder Aaa - [id number] Implanted:Qty: 1 on 11/27/2023 by Saul Crenshaw MD [place] [facility] N/A: Aorta [employer] [id number] 07/14/2026 [id number] / / [id number] Grft Excldr 86bca26.5cm - [id number] Implanted:Qty: 1 on 11/27/2023 by Saul Crenshaw MD [place] [facility] Left: Iliac [employer] 12/03/2025 [id number] / [id number] / [id number] Graft Excludr [id number] - [id number] Implanted:Qty: 1 on 11/27/2023 by Saul Crenshaw MD [place] [facility] [place]: Iliac [employer] [id number] 07/29/2026 [id number] / [id number] / [id number] documented as of this encounter Advance Directives * Full Code (Latest Code Status on File) Date Activated Date Inactivated Comments 11/27/2023 11:28 AM 11/28/2023 7:06 PM This orde r reflects the patients wishes and were consensually agreed upon. Question Answer Comments Discussion of Advance Direct matt occurred with: Not Discussed due to patient's condition Care Teams Bias Cutter Relationship Specialty Start Date End Date Edgardo Sánchez DO [address] [id number] PCP - General Family Medicine 03/09/19 documented as of this encounter
--- OUTSIDE RECORDS SUMMARY | 2024-04-03 21:57 | External Medical Summary | Summary of Care ---
Author Name Unknown Organization [facility] Address [address] [place] [address] Phone [phone] Care Team Providers Care Technical Publications Manager Name Role Phone Edgardo Sánchez Primary Care Provider Reason for Visit * Reason Comments Post-Op Encounter Details Date Type Department Care Team (Late st Contact Info) Description 12/09/2023 9:50 AM EDT Office Visit Vascular Surgery, [facility] [address] [place] [address] Saul Crenshaw MD [address] [place] [address] Infrarenal abdominal aortic aneurysm (AAA) without rupture (HCC)*; Iliac artery aneurysm, bilateral (HCC); H/O endovascular stent graft for abdominal aortic aneurysm Allergies Active Allergy Reactions Criticality Noted Date Comments Latex 07/21/2016 Pt states he breaks out from this documented as of this encounter (statuses as of 12/09/2023) Medications Medication Sig Dispensed Refills Start Date [...] EVERY MORNING 100 Tablet 3 07/21/2023 Active Fluticasone-Salmetero l 500-50 MCG/ACT Inhalation Aerosol Powder Breath Activated (Advair Diskus)Indications:CO PD, group A, by GOLD 2017 classification ([facility]) INHALE ONE PUFF BY MOUTH TWICE [...] MCG/ACT Inhalation Aerosol Powder Breath Activated (umeclidinium Brandon)Indications:C OPD, group A, by GOLD 2017 classification (HCC) Inhale 1 Puff by mouth in the morning. 90 Each 12/02/2023 Active documented as of this encounter (statuses as of 12/09/2023) Active Problems Problem Noted Date Diagnosed Date [...] fracture 05/09/2020 Coronary artery disease invo lving ekwok coronary artery of ekwok heart without angina pectoris 05/09/2020 COPD, group A, by GOLD 2017 classification 11/27 Overview: Per COPD GOLD Classification History of [place] (myocardial infarction) 07/11/2016 Abdominal aortic aneurysm (AAA) [...] as of this encounter (statuses as of 12/09/2023) Resolved Problems Problem Noted Date Diagnosed Date [...] as of this encounter (statuses as of 12/09/2023) Immunizations Name Administration Dates Next Due H1N1 [...] Sign Reading Time Taken Comments Blood Pressure 122/64 12/09/2023 9:46 AM EDT Pulse 77 12/09/2023 9:46 AM EDT Temperature 35.7 C (96.3 F) 12/09/2023 9:46 AM ED T Respiratory Rate - - Oxygen Saturation - - Inhaled Oxygen Concentration - - Weight 83.7 kg (184 lb 9.6 oz) 12/09/2023 9:46 A M EDT Height - - Body Mass Index 28.91 11/27/2023 6:20 AM EDT documented in this encounter Progress Notes * Thiago Briscoe PA-C - 12/09/2023 9:50 AM EDT Images from the original note were not included. Date of Service: 12/09/2023 9:58 AM Nitin Pickett is a 88 year old male. Patient being seen in consultation at the request of Edgardo Sánchez DO Chief Complaint: Post op visit S/P repair of asymptomatic 6.0 cm AAA with EVAR, RCIA extension graft, coil embolization of RIIA and viabahn stent into REIA on 11/27/[address] Crenshaw Since surgery doing well. No issues. Walking well. 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 HPI: Patient is a reformed smoker with [...] BY MOUTH EVERY MORNING 100 Tablet 3 Lisinopril 10 MG Oral Tablet (Prinivil) TAKE ONE TABLET BY MOUTH IN THE MORNING 90 Tablet 2 Amiodarone HCl 200 MG Oral Tablet (Cordarone) TAKE ONE TABLET BY MOUTH EVERY MORNING 100 Tablet 3 Fluticasone-Salmeterol 500-50 MCG/ACT Inhalation Aerosol Powder Breath Activated (Advair Diskus) INHALE ONE PUFF BY MOUTH TWICE A DAY IN THE MORNING AND BEFORE BEDTIME 180 Each 0 Clopidogrel Bisulfate 75 MG Oral Tablet (pLAVix) Take 1 Tablet by mouth in the morning. 90 Tablet 1 Tamsulosin HCl 0.4 MG Oral Capsule (Flomax) Take 1 Capsule by mouth in the morning. 30 Capsule 0 Incruse Ellipta 62.5 MCG/ACT Inhalation Aerosol Powder Breath Activated (umeclidinium Brandon) Inhale 1 Puff by mouth in the morning. 90 Each 0 Albuterol Sulfate HFA 108 (90 Base) MCG/ACT Inhalation Aerosol Solution Inhale 2 Puffs by mouth every 6 hours as needed for Shortness of Breath. 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 DYSLIPIDEMIA, GOAL LDL BELOW 100 Hypothyroidism due to medication HTN, goal below 140/90 Beta-blockers contraindicated Abdominal aortic aneurysm (AAA) without rupture (HCC) Paroxysmal atrial fibrillation (HCC) History of [place] (myocardial infarction) COPD, group A, by GOLD 2017 classification ([facility]) Asymptomatic bilateral carotid artery stenosis Age-related osteoporosis without current pathological fracture Coronary artery disease involving ekwok coronary artery of ekwok heart without angina pectoris Type 2 diabetes mellitus with hemoglobin A1c goal of less than 8.0% ([facility]) 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, bilateral (HCC) 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) Chronic kidney disease, stage 3b (HCC) 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 History of [place] (myocardial infarction) 07/11/2016 Past Surgical History: Procedure Laterality Date COLONOSCOPY W/ LESION REMOVAL, SNARE 04/23 repeat 3 yrs adenomatous COLONOSCOPY, GI REFERRAL OP may 2002 dr villarreal, miguel except for hemorrhoids. next in may 2007 COLORECTAL CANCER SCREEN; COLON 07/23/2010 diverticulosis ENDOVASCULAR REPAIR DEPLOYMENT [id number] ENDOGRAFT N/A 11/27/2023 ENDOVASCULAR INFRARENAL AORTA AND OR [id number] PROSTHESIS, INC. RADIOLOGY SUPERVISION & INTERPRETATION ONE ENDOPROSTHESIS performed by Saul Crenshaw MD [place] [facility] [place] PARATHYROID GLANDS N/A 08/25/2016 PARATHYROIDECTOMY performed by Jose Alvarado DO at [facility] OPEN FEMORAL ARTERY EXPOSURE FOR ENDOVASCULAR PROSTHESIS, UNILAT Bilateral 11/27/2023 OPEN FEMORAL ARTERY EXPOSURE FOR ENDOVASCULAR PROSTHESIS performed by Saul rCenshaw MD at [facility] PERCUTANEOUS ACCESS AND CLOSURE OF FEMORAL ARTERY Bilateral 11/27/2023 PERCUTANEOUS ACCESS/CLOSURE FEMORAL ARTERY FOR ENDOGRAFT, INC ULTRASOUND GUIDANCE, UNILATERAL performed by Saul Crenshaw MD at [facility] REMOVE CATARACT, INSERT LENS PROSTH right REMOVE CATARACT, INSERT LENS PROSTH Right 06/18/2021 Right EXTRACAPSULAR CATARACT REMOVAL WITH INTRAOCULAR LENS performed by Gilmer Davalos MD at OR [facility] SINGLE LOBECTOMY, LUNG 1985 right- resected HAMARTOMA [...] Social History Narrative Not on file Social Determinants of Health Financial Resource Strain: Low Risk (12/01/2023) Financial [...] Stability Do you currently live in a jail or have no steady place to sleep [...] and No edema. Reports remote history of NJ GI/Abd: No abdominal pain, No change in bowel habits, No significant change in appetite and No blood in stools or black tarry stools Skin: no rash Neurologic: No TIA symptoms, No CVA symptoms and No syncope Psychiatric: No depression, No anxiety and No psychosis VITAL SIGNS: BP 122/64 (BP Site: Left Arm, BP Position: Sitting, BP Cuff Size: Regular) | Pulse 77 | Temp 35.7 C (96.3 F) (Tympanic) | Wt 83.7 kg (184 lb 9.6 oz) | BMI 28.91 kg/m | BSA 1.99 m GENERAL MULTI-SYSTEM PHYSICAL EXAM: GENERAL: Normal [...] intact and Sensory exam intact LEFT GROIN: healing incision, see PHOTO PULSE SCALE: Carotid Right:----Bruit: No Left:----Bruit: No Radial Right: 2 Left: 2 Femoral Right: 2 Left: 2 Popliteal Right: 2 Left: 2 Dorsalis Pedis Right: 3 Left: 3 Posterior Tibial Right: 1 Left: 1 PULSE SCALE: 4=Aneurysmal; 3=Normal; 2=Diminished; 1=Barely Palpable; 0=Absent DIAGNOSTIC STUDIES: 09/24/23 CTA C/A/P: Tri-lobed 6.0 cm AAA, [...] cm, LCIA 2.7 cm, 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 Dr. Crenshaw measured @ 5.36 cm, 5.4 cm by radiology report 05/30/2022 CTA Abd/Pelvis: 5.1 cm AAA, RCIA 2.6 cm, LCIA 2.5 cm 12/10/2021 CTA Abd/Pelvis 4.9 x 5.2 cm AAA on axial view, 5 cm on coronal view, 5.2 cm on sagittal view, RCIA 2.6 cm, LCIA 2.5 cm 06/04/21: CTA: 5.6 cm AAA sagittal view. 4.9 cm on axial and coronal view, RCIA 2.6 cm, LCIA 2.2 cm CARDIAC STUDIES 07/29/2021 LABS: Lab Results Component Value Date/Time CREATININE [...] clinical labs were reviewed by me on 12/09/2023 IMPRESSIONS: S/P repair of asymptomatic 6.0 cm AAA with EVAR, RCIA extension graft, coil embolization of RIIA and viabahn stent into REIA on 11/27/[address] Crenshaw Left groin incision healing well Mildly impaired LV function, LVEF of 49%, no ischemia on DSE. Follows with [facility], most recent studies & F/U impressions: Chart reviewed. 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 Patient is high [...] mg daily for Pleiotropic effects of statins Follow-up 12/30/23 at [facility] with CTA abd and pelvis 1 wk prior. Scheduled for 12/22 The patient was seen and examined with Zach Crenshaw MD. BRITTNI Cook, JALENC Section of Vascular and Endovascular Surgery [address] [address] I performed a history and physical examination of the patient and discussed the management with thePhysician Head Of Sales And Marketing, Thiago Briscoe PA-C. I reviewed the Physician Head Of Sales And Marketing's note and agree with the documented findings and plan of care. Mr. Pickett returns for s/p EVAR for 5.6 cm AAA on 11/27/23. I coil embolized the R IIA and covered this with extension limb given the saccular appearance of the distal R KALIE. A small right accessory renal artery was also sacrificed in order to gain adequate seal zone for the EVAR. Overall doing well. The left groin incision has healed nicely. I plan to see him in Follow-up 12/30/23 at [facility] with CTA abd and pelvis 1 wk prior. Scheduled for 12/22 Saul Crenshaw MD Vascular Surgeon Department of Vascular Surgery [facility] Saul Crenshaw MD Vascular Surgeon Department of Vascular Surgery [facility] documented in this encounter Nursing Notes * Kelly Henley CMA - 12/09/2023 9:48 AM EDT Reviewed the option of transferring scripts to [facility] pharmacy with patient and / or family. Patient stated no changes in medications. Kelly Henley CMA documented in this encounter Plan of Treatment Upcoming Encounters Date Type Department Care Team (Late st Contact Info) Description 12/16/2023 9:40 AM EDT Home Visit [facility] [address] [place] [address] Yon Bell PA-C [address] [place] [address] Lashanda Putnam, [facility] Head Of Sales And Marketing [address] [facility] [address] 12/23/2023 10:00 AM EST Imaging Radiology [address] [facility] [place] [address] 12/24/2023 10:00 AM EST Home Visit [facility] [address] [place] [address] Christ Early, RN [address] [place] [address] 12/30/2023 10:10 AM EST Office Visit Vascular Surgery, [facility] [address] [place] [address] Saul Crenshaw MD [address] [place] [address] 04/12/2024 10:30 AM EST Office Visit Cardiology, [facility] [address] [place] [address] Shaquille Le, DO [address] [place] [address] 08/11/2024 10:20 AM EDT Office Visit Family Practice [facility] [address] [place] [address] Gabi Vinson CRNP [address] [place] [address] 11/15/2024 10:20 AM EDT Office Visit Family Practice [facility] [address] [place] [address] Edgardo Sánchez, [address] [place] [address] Health Maintenance Due Date Last Done Comments Adult Wellness Visit 2002 *BISPHONATE OR OTHER ACCEPTABLE MEDICATION NEEDED FOR OSTEOPOROSIS (REFER TO SMARTSET #1146) 05/11/2020 Diabetic Eye Exam 01/20/2023 01/20/2022, 01/29/2000 Diabetic Foot Exam 06/04/2023 06/03/2022 COVID-19 Vaccine ( season) 2023 Influenza Vaccine (FLU shot) (#1) 2023 11/16/2022, 11/09/2021, 11/19/2020, Additional history exists CKD PHOS USE SMARTSET 32534 01/15/202412/18, 06/03/2021, 04/24/2021, Additional history exists HbA1c 05/10/2024 11/11/2023, 12/18, 01/20/2022, Additional history exists TSH 11/10/2024 11/11/2023, 08/18, 01/14/2023, Additional history exists Albumin/Creatinine Ratio 11/15/2024 024, 01/16/2023, 06/03/2021, Additional history exists O2 ASSESSMENT COMPLETED IN PAST YEAR FOR COPD 11/26/2024 11/27/2023 CKD HGB USE SMARTSET 08165 11/27/202411/27, 11/27/2023, 11/16/2023, Additional history exists Depression Screening 11/30/2024 12/01/2023, 11/11/19 24 DTap/Tdap Vaccines (3 - Td or Tdap) 06/09/2032 06/09/2022, 09/15/2011, 01/16/1994 VITAMIN D LEVEL ONCE IN A LIFETIME-USE SMARTSET# 26429 Completed 03/29/2012, 10/24/2008 Pneumococcal Vaccine: 65+ Years [...] this encounter Medical Devices Implanted Type Area Batter Mixer Helper Device Identifier Shelf Expiration Date Model / Serial / Lot Lens Intraoc 19.0 - [id number] - [id number] Implanted:Qty: 1 on 06/18/2021 by Gilmer Davalos MD at OR [facility] Right: Eye [employer] 02/15/2026 [id number] / [id number] / [id number] Plug Vasc Ampl 12mm 9-Plug-012 - [id number] Implanted:Qty: 1 on 11/27/2023 by Saul Crenshaw [place] [facility] Right: Iliac [employer] [id number] 2027 9-PLUG-01 [id number] 11mm X 10cm X 120cm Viabahn Endoprosthesis Stent Graft, With Heparin Bioactive Surface Implanted:Qty: 1 on 11/27/2023 by Saul Crenshaw MD [place] [facility] Right: Iliac [employer] [id number] 07/19/2026 [id number] / [id number] / [id number] Graft Abdominal 32x14.0uil59uv Stent Control Trunk Ipsilateral System Leg Aortic Aneurysm Conformable Endoprosthesis With Active Excluder Aaa - [id number] Implanted:Qty: 1 on 11/27/2023 by Saul Crenshaw MD [place] [facility] N/A: Aorta [employer] [id number] 07/14/2026 [id number] / [id number] Grft Excldr 22nqk50.5cm - [id number] Implanted:Qty: 1 on 11/27/2023 by Saul Crenshaw MD [place] [facility] Left: Iliac [employer] 12/03/2025 [id number] / [id number] / [id number] Graft Excludr [id number] - [id number] Implanted:Qty: 1 on 11/27/2023 by Saul Crenshaw MD [place] [facility] Right: Iliac [employer] [id number] 07/29/2026 [id number] / [id number] / [id number] documented as of this encounter Visit Diagnoses [...] Discussed due to patient's condition Care Teams Technical Publications Manager Relationship Specialty Start Date End Date Edgardo Sánchez DO [address] [place] [address] PCP - General Family Medicine 03/09/19 documented as of this encounter"
--- OUTSIDE RECORDS SUMMARY | 2024-04-03 21:57 | External Medical Summary ---
Author Name Unknown Address Unknown Organization K01:[facility] - [address] [facility] [id number] Laboratory Report Ordering Provider Test Date Status AMARA CRAMER 11/27/2023 11:48:43 Final Labs in PACU Observation Date Value Abnormality Reference (Units ) Status WBC, Total 11/27/2023 11:48:43 8.74 4.00-10.80 (K/uL) Final RBC 11/27/2023 11:48:43 3.41 4.50-5.25 (M/uL) Final Hemoglobin 11/27/2023 11:48:43 10.5 Below low normal 14.0-16.8 (g/dL) Final HCT 11/27/2023 11:48:43 32.4 Below low normal 40.0-48.4 (%) Final MCV 11/27/2023 11:48:43 95.0 82.0-99.5 (fL) Final MCH 11/27/2023 11:48:43 30.8 27.0-34.0 (pg) Final MCHC 11/27/2023 11:48:43 32.4 32.0-36.0 (g/dL) Final RDW 11/27/2023 11:48:43 15.6 11.5-15.5 (%) Final Platelets 11/27/2023 11:48:43 181 140-400 (K/uL) Final MPV 11/27/2023 11:48:43 10.9 6.6-11.1 (fL) Final Nucleated erythrocytes/100 leukocytes [Ratio] in Blood by Automated count 11/27/2023 11:48:43 0 <=0 (/100 WBCs) Final Performing Location [facility] - [address] [place] [address]
--- OUTSIDE RECORDS SUMMARY | 2024-04-03 21:57 | External Medical Summary | Summary of Care ---
Author Name Unknown Organization [facility] Address [address] [place] [address] Phone [phone] Care Team Providers Care Biomechanical Engineer Name Role Phone SánchezEdgardomariel Primary Care Provider Encounter Details Date Type Department Care Team (Late st Contact Info) Description 12/01/2023 12:30 PM EDT [facility] [address] [place] [address] Christ Early, RN [address] [place] [address] Allergies Active Allergy Reactions Criticality Noted Date Comments Latex 07/21/2016 Pt states he breaks out from this documented as of this encounter (statuses as of 12/01/2023) Medications Medication Sig Dispensed Refills Start Date [...] MCG/ACT Inhalation Aerosol Powder Breath Activated (umeclidinium Chesaning)Indications:C OPD, group A, by GOLD 2017 classification (FORMERLY [facility]) Inhale 1 Puff by mouth in the morning. 90 Each 11/16/2023 Active Fluticasone-Salmetero l 500-50 MCG/ACT Inhalation Aerosol Powder Breath Activated (Advair Diskus)Indications:CO PD, group A, by GOLD 2017 classification (FORMER[facility]) INHALE ONE PUFF BY MOUTH TWICE A [...] as of this encounter (statuses as of 12/01/2023) Active Problems Problem Noted Date Diagnosed Date [...] fracture 05/09/2020 Coronary artery disease invo lving nenana coronary artery of nenana heart without angina pectoris 05/09/2020 COPD, group A, by GOLD 2017 classification 11/27 Overview: Per COPD GOLD Classification History of [place] (myocardial infarction) 07/11/2016 Abdominal aortic aneurysm (AAA) [...] as of this encounter (statuses as of 12/01/2023) Resolved Problems Problem Noted Date Diagnosed Date [...] 07/05/19 20 Overview: Historical. Calculus of kidney 11/15/201 9 ACUTE MYOCARDIAL INFARCTION; OTHER ANTERIOR WALL,EPISODE CARE UNSPECIFIED 07/11/2016 Dermatophytosis of nail 11/17 Mixed dyslipidemia 9 Overview: Per Lipid Taxonomy. documented as of this encounter (statuses as of 12/01/2023) Immunizations Name Administration Dates Next Due H1N1 [...] Sign Reading Time Taken Comments Blood Pressure 142/82 12/01/2023 1:51 PM EDT Pulse 72 12/01/2023 1:51 PM EDT Temperature 36.9 C (98.4 F) 12/01/2023 1:51 PM ED T Respiratory Rate 18 12/01/2023 1:51 PM EDT Oxygen Saturation 97% 12/01/2023 1:51 PM EDT Inhaled Oxygen Concentration - - Weight - - Height - - Body Mass Index - - documented in this encounter Progress Notes * Christ Early RN - 12/01/2023 12:40 PM EDT Current Concerns: Situation: Pt seen today by [facility] baton twirler for initial visit. Background: Pertinent PMH: HTN, COPD, T2DM, CKD stage 3b, osteoporosis, a fib, AAA s/p repair Assessment: Pt and daughter Iman, who is a nurse, present for visit Pt lives alone in a two story home Is independent with all ADLS/IADLS Pt gets medicine through mail order pharmacy, has own system of taking medications Pt does drive and perform all grocery shopping and transportation independently Pt had scheduled AAA repair procedure performed at [facility] on 11/26 Admitted from 11/25-11/27 Pt denies pain or issues since procedure Pt has not taken PRN Oxy- will not take narcotics Pt reports minimal to no pain, has not needed tylenol Pt has surgical incsion to R groin that is well approximated, closed with monocryl No irritation, redness, warmth, drainage at side L groin region with wound vac intact No redness, irriation visible, site free of warmth Pt has appt 12/08 for incision check, possible wound vac removal Pt states other than AAA repair has not had any ED visits, hospitalizations in last 6 months Per pt and daughter last ED visit was in November 2022 due to a fall resulting in fx ribs Pt is a Does not have VA benefits at this time Pt would like to get hearing aides but has been avoiding due to cost Provided daughter with VA benefits phone number Pt does not have any issues or concerns at this time [phone] with any red flags, changes in condition, or concerns Physical Exam: Physical Exam Constitutional: Appearance: Normal appearance. HENT: Right Ear: Decreased hearing noted. Left Ear: Decreased hearing noted. Cardiovascular: Rate and Rhythm: Normal rate and regular rhythm. Pulmonary: Effort: Pulmonary effort is normal. Breath sounds: Normal breath sounds. Abdominal: General: Bowel sounds are normal. Palpations: Abdomen is soft. Musculoskeletal: General: Normal range of motion. Skin: General: Skin is warm and dry. Capillary Refill: Capillary refill takes 2 to 3 seconds. Neurological: Mental Status: He is alert and oriented to person, place, and time. Psychiatric: Mood and Affect: Mood normal. Behavior: Behavior normal. Review of Systems: Review of Systems Constitutional: Negative. Negative for chills and fever. HENT: Positive for hearing loss. Respiratory: Negative. Negative for shortness of breath. Cardiovascular: Positive for leg swelling (Trace to BLE). Gastrointestinal: Negative for abdominal distention. Genitourinary: Negative. Musculoskeletal: Negative. Negative for gait problem. Skin: Positive for wound (Surgical incisions to bilateral groins). Neurological: Negative. Psychiatric/Behavioral: Negative. Care Plan Goal Progress: Aseptic care of all invasive lines & tubes will be maintained. (Progressing) Start: 12/01/23 Expected End: 01/15/24 Patient will remain free from infection. (Progressing) Start: 12/01/23 Expected End: 01/15/24 Orders Placed: No orders of the defined types were placed in this encounter. Care Gaps: Care Gaps Care gaps closed this contact:: Education;Plan of Care (POC) (12/01/231807) Type of education: Clinical/disease (12/01/231807) Type of plan of care (POC) care gap: Creation of plan of care (POC) and/or Integrated Care Plan (ICP) (12/01/231807) documented in this encounter Miscellaneous Notes * ACP (Advance Care Planning) - Christ Early RN - 12/01/2023 1:29 PM EDT Images from the original note were not included. Advance Care Planning Patient-centered Communication 12/01/2023 The patient/surrogate voluntarily agreed to participate in advance care planning discussion. They were advised that this is a separate service which may incur out of pocket cost in the form of copayment and/or deductibles. Location: Home Individual(s) present for conversation: Patient and Daughter(s) Decisions Synopsis SmartLink Most Recent Value Past ~10 years 12/01/2023 13:24 Decisions CPR decision: Patient chooses CPR 12/01/2023 Patient chooses CPR Intubation/Mechanical Ventilation decision: Patient chooses Intubation/mechanical ventilation 12/01/2023 Patient chooses Intubation/mechanical ventilation Non-invasive ventilation or BIPAP decision: Patient chooses non-invasive ventilation. Select interventions below 12/01/2023 Patient chooses non-invasive ventilation. Select interventions below Non-Invasive Ventilation Interventions: Oxygen only;CPAP;BIPAP;NIV 12/01/2023 Oxygen only;CPAP;BIPAP;NIV Antibiotic therapy decision: Patient chooses Antibiotic therapy 12/01/2023 Patient chooses Antibiotic therapy Artificial nutrition decision: Undecided about Artificial nutrition 12/01/2023 Undecided about Artificial nutrition IV hydration decision: Patient chooses IV hydration 12/01/2023 Patient chooses IV hydration Chemotherapy decision: Declines Chemotherapy 12/01/2023 Declines Chemotherapy Radiation therapy decision: Declines Radiation therapy 12/01/2023 Declines Radiation therapy Surgical procedure(s) decision: Patient chooses Surgical procedure 12/01/2023 Patient chooses Surgical procedure Blood transfusion decision: Patient chooses Blood transfusion 12/01/2023 Patient chooses Blood transfusion Lab draw decision: Patient chooses Lab draws 12/01/2023 Patient chooses Lab draws Hospice decision: Undecided about Hospice 12/01/2023 Undecided about Hospice Additional Comments Synopsis SmartLink Most Recent Value Past ~10 years 12/01/2023 13:24 Additional Comments Additional Comments: Pt does not have any strong desire to at home vs in hospital 12/01/2023 Pt does not have any strong desire to at home vs in hospital Discerning What Matters Most to the Patient: Synopsis SmartLink Most Recent Value Past ~10 years 12/01/2023 13:19 Discerning What Matters Most to the Patient In their own words, patient's UNDERSTANDING of their illness is: "Right this minute I could be better, until I get this thing out of my side" 12/01/2023 "Right this minute I could be better, until I get this thing out of my side" They say their illness has CHANGED THEIR LIFE by: -- None of the above 12/01/2023 -- None of the above The patient thinks COMPLICATIONS in the future may be: ;More hospitalizations;More fatigue;More pain 12/01/2023 ;More hospitalizations;More fatigue;More pain The patient's HOPES are: Maintain current functional abilities;Avoid further hospitalization 12/01/2023 Maintain current functional abilities;Avoid further hospitalization The patient defines LIVING WELL as: "I'd get up in the morning and eat breakfast and do whatever has to be done." 12/01/2023 "I'd get up in the morning and eat breakfast and do whatever has to be done." The patient's FEARS/WORRIES about illness are: Going to a detention 12/01/2023 Going to a detention The patient considers these as 'UNACCEPTABLE OUTCOMES': "Being a vegetable" (define below);Unable to talk/interact with loved ones;Unable to feed themselves;Prolonged mechanical ventilation (define below) 12/01/2023 "Being a vegetable" (define below);Unable to talk/interact with loved ones;Unable to feed themselves;Prolonged mechanical ventilation (define below) "Being a vegetable", patient defines as: "May as well shoot me, I don't want that to not be able totalk or anything' 12/01/2023 "May as well shoot me, I don't want that to not be able to talk or anything' The patient's cultural or spiritual BELIEFS that may affect health care decisions: N/A 12/01/2023 N/A Source: Content from Respecting Choices Program Aligning Care With What Matters Most: Synopsis SmartLink Most Recent Value Past ~10 years 12/01/2023 13:24 Aligning Care With What Matters Most In their own words, the patient's understanding of their prognosis: "Not too bad overall" 12/01/2023 "Not too bad overall" Interventions/Choices: CPR;Intubation/mechanical ventilation;Non-invasive ventilation or BIPAP;Antibiotic therapy;Artificial nutrition;IV hydration;Chemotherapy;Radiation therapy;Surgical procedure;Blood transfusion;Lab draws;Hospice 12/01/2023 CPR;Intubation/mechanical ventilation;Non-invasive ventilation or BIPAP;Antibiotic therapy;Artificial nutrition;IV hydration;Chemotherapy;Radiation therapy;Surgical procedure;Blood transfus ion;Lab draws;Hospice 20 minutes spent in direct [id number]-[id number] discussion today, Christ Early RN documented in this encounter Plan of Treatment Upcoming Encounters Date Type Department Care Team (Late st Contact Info) Description 12/09/2023 9:50 AM EDT Office Visit Vascular Surgery, [facility] [address] [place] [address] Saul Crenshaw MD [address] [place] [address] 12/16/2023 9:40 AM EDT [facility] [address] [place] [address] Yon Bell PA-C [address] [place] [address] Lashanda Putnam, Community Health Computer Support Analyst [address] [place] [address] 12/23/2023 10:00 AM EST Imaging Radiology [facility] 1st Floor, [place] [address] [place] [address] 12/24/2023 10:00 AM EST [facility] [address] [place] [address] Christ Early, RN [address] [place] [address] 12/30/2023 10:10 AM EST Office Visit Vascular Surgery, [facility] [address] [facility] [place] [address] Saul Crenshaw MD [address] [place] [address] 04/12/2024 10:30 AM EST Office Visit Cardiology, [facility] [address] [place] [address] Shaquille Le DO [address] [place] [address] 08/11/2024 10:20 AM EDT Office Visit Family Practice [facility] [address] [place] [address] Gabi Vinson CRNP [address] [place] [address] 11/15/2024 10:20 AM EDT Office Visit Family Practice [facility] [address] [place] [address] Edgardo Sánchez, [address] [place] [address] Health Maintenance Due Date Last Done Comments Adult Wellness Visit 2002 *BISPHONATE OR OTHER ACCEPTABLE MEDICATION NEEDED FOR OSTEOPOROSIS (REFER TO SMARTSET #1146) 05/11/2020 Diabetic Eye Exam 01/20/2023 01/20/2022, 01/29/2000 Diabetic Foot Exam 06/04/2023 06/03/2022 COVID-19 Vaccine ( season) 2023 Influenza Vaccine (FLU shot) (#1) 2023 11/16/2022, 11/09/2021, 11/19/2020, Additional history exists CKD PHOS USE SMARTSET 20883 01/15/202412/18, 06/03/2021, 04/24/2021, Additional history exists HbA1c 05/10/2024 11/11/2023, 12/18, 01/20/2022, Additional history exists TSH 11/10/2024 11/11/2023, 07/3 02/2023, 01/14/2023, Additional history exists Albumin/Creatinine Ratio 11/15/2024 024, 01/16/2023, 06/03/2021, Additional history exists O2 ASSESSMENT COMPLETED IN PAST YEAR FOR COPD 11/26/2024 11/27/2023 CKD HGB USE SMARTSET 37829 11/27/202411/27, 11/27/2023, 11/16/2023, Additional history exists Depression Screening 11/30/2024 12/01/2023, 09/25/20 24 DTap/Tdap Vaccines (3 - Td or Tdap) 06/09/2032 06/09/2022, 09/15/2011, 01/16/1994 VITAMIN D LEVEL ONCE IN A LIFETIME-USE SMARTSET# 08685 Completed 03/29/2012, 10/24/2008 Pneumococcal Vaccine: 65+ Years [...] this encounter Medical Devices Implanted Type Area Softwood Faller Device Identifier Shelf Expiration Date Model / Serial / Lot Lens Intraoc 19.0 - [id number] - [id number] Implanted:Qty: 1 on 06/18/2021 by Gilmer Davalos MD at OR [facility] Right: Eye [employer] 02/15/2026 [id number] / [id number] Plug Vasc Ampl 12mm 9-Plug-012 - [id number] Implanted:Qty: 1 on 11/27/2023 by Saul Crenshaw MD at OR [facility] Right: Iliac [employer] [id number] 2027 9-PLUG-01 [id number] 11mm X 10cm X 120cm Viabahn Endoprosthesis Stent Graft, With Heparin Bioactive Surface Implanted:Qty: 1 on 11/27/2023 by Saul Crenshaw MD at OR [facility] Right: Iliac [employer] [id number] 07/19/2026 [id number] / [id number] / [id number] Graft Abdominal 32x14.4asr38zs Stent Control Trunk Ipsilateral System Leg Aortic Aneurysm Conformable Endoprosthesis With Active Excluder Aaa - [id number] Implanted:Qty: 1 on 11/27/2023 by Saul Crenshaw MD at OR [facility] N/A: Aorta [employer] [id number] 07/14/2026 [id number] / [id number] Grft Excldr 55upi78.5cm - [id number] Implanted:Qty: 1 on 11/27/2023 by Saul Crenshaw MD at OR [facility] Left: Iliac [employer] 12/03/2025 [id number] / [id number] / [id number] Graft Excludr [id number] - [id number] Implanted:Qty: 1 on 11/27/2023 by Saul Crenshaw MD at OR [facility] Right: Iliac [employer] [id number] 07/29/2026 [id number] / [id number] / [id number] documented as of this encounter Advance Directives * Full Code (Latest Code Status on File) Date Activated Date Inactivated Comments 11/27/2023 11:28 AM 11/28/2023 7:06 PM This orde r reflects the patients wishes and were consensually agreed upon. Question Answer Comments Discussion of Advance Direct matt occurred with: Not Discussed due to patient's condition Care Teams Biomechanical Engineer Relationship Specialty Start Date End Date Edgardo Sánchez DO [address] [place] [id number] PCP - General Family Medicine 03/09/19 documented as of this encounter
--- OUTSIDE RECORDS SUMMARY | 2024-04-03 21:57 | External Medical Summary ---
Author Name Unknown Address Unknown Organization : Laboratory Report Ordering Provider Test Date Status RENETTA ESCALANTE 11/27/2023 09:25:56 Final Observation Date Value Abnormality Reference (Units ) Status Glucose Point of Care 11/27/2023 09:25:56 114 70-120 (mg/dL) Final Performing Location
--- OUTSIDE RECORDS SUMMARY | 2024-04-03 21:57 | External Medical Summary ---
Author Name Unknown Address Unknown Organization K01:[facility] [place] [address] [place] [address] Laboratory Report Ordering Provider Test Date Status AMARA CRAMER 11/27/2023 11:48:43 Final Labs in PACU Observation Date Value Abnormality Reference (Units ) Status BUN 11/27/2023 11:48:43 32 Above high normal 6-20 (mg/dL) Final Creatinine 11/27/2023 11:48:43 1.7 Above high normal 0.6-1.2 (mg/dL) Final Glomerular filtration rate/1.73 sq M.predicted [Volume Rate/Area] in Serum, Plasma or Blood by Creatinine-based formula (CKD-EPI) 11/27/2023 11:48:43 38 Below low normal >=60 (mL/min) Final eGFR is calculated based on the CKD-EPI 2020 equation. Sodium 11/27/2023 11:48:43 137 135-146 (m mol/L) Final Potassium 11/27/2023 11:48:43 4.9 3.5-5.1 (m mol/L) Final Cl 11/27/2023 11:48:43 105 98-107 (mm ol/L) Final CO2 11/27/2023 11:48:43 22 22-32 (mmo l/L) Final Anion gap 11/27/2023 11:48:43 10 7-15 (mmol /L) Final Glucose 11/27/2023 11:48:43 160 Above high normal 70 -120 (mg/dL) Final Calcium 11/27/2023 11:48:43 8.2 Below low normal 8.4 -10.2 (mg/dL) Final Performing Location [facility] [place] [address] [place] [address]
--- OUTSIDE RECORDS SUMMARY | 2024-04-03 21:57 | External Medical Summary | Summary of Care ---
Author Name Unknown Organization [facility] Address [address] [place] [address] Phone [phone] Care Team Providers Care Rest Room Maid Name Role Phone Edgardo Sánchez Primary Care Provider Reason for Visit * Reason Onset Date Comments Hospital Follow-Up 11/30/2023 Encounter Details Date Type Department Care Team (Late st Contact Info) Description 11/30/2023 Telephone Vascular Surg [facility] [address] [place], [place] [phone] Saul Crenshaw MD [address] [place], [place] [phone] Hospital Follow-Up Allergies Active Allergy Reactions Criticality Noted Date [...] MCG/ACT Inhalation Aerosol Powder Breath Activated (umeclidinium [place])Indications:C OPD, group A, by GOLD 2017 classification ([facility]) Inhale 1 Puff by mouth in the morning. 90 Each 11/16/2023 Active Fluticasone-Salmetero l 500-50 MCG/ACT Inhalation Aerosol Powder Breath Activated (Advair Diskus)Indications:CO PD, group A, by GOLD 2017 classification ([facility]) INHALE ONE PUFF BY MOUTH TWICE A [...] fracture 05/09/2020 Coronary artery disease invo lving [place] coronary artery of [place] heart without angina pectoris 05/09/2020 COPD, group A, by GOLD 2017 classification 11/27 Overview: Per COPD GOLD Classification History of [place] (myocardial infarction) 07/11/2016 Abdominal [...] encounter Miscellaneous Notes * Telephone Encounter - Jc Kilgore OSA - 11/30/2023 11:47 AM EDT Called patient and relayed appointment details He is able to come at that time. * Telephone Encounter - Jc Kilgore OSA - 11/30/2023 11:47 AM EDT ----- Message from Tati Pringle sent at 11/30/2023 11:43 AM EDT ----- Regarding: RE: Follow up Pt is scheduled on 12/17/23, please make sure patient is aware of apptUli Duffy ----- Message ----- From: Jc Kilgore OSA Sent: 11/30/2023 10:34 AM EDT To: Tati Vergara LPN Subject: FW: Follow up ----- Message ----- From: Thiago Briscoe PA-C Sent: 11/30/2023 10:28 AM EDT To: HEATHER Pizano; # Subject: RE: Follow up Yes, please overbook, for Prevena Removal and incision check ----- Message ----- From: Jc Kilgore OSA Sent: 11/30/2023 10:01 AM EDT To: Thiago Briscoe PA-C; # Subject: FW: Follow up This is a [facility] patient, Dr. Crenshaw will be in [place] on 12/08 but there are no openings. Possible to overbook? ----- Message ----- From: Andrew Aguilar MD Sent: 11/28/2023 10:58 AM EDT To: Vascular Surgery [facility] Secretarial Pool/Class Subject: Follow up Hi can Mr. Pickett get a [address] follow up with Dr Crenshaw for Prevena Removal? Andrew Chavez documented in this encounter Plan of Treatment Upcoming Encounters Date Type Department Care Team (Late st Contact Info) Description 12/01/2023 12:30 PM EDT [facility] [address] [place] [address] Christ Early RN [address] [place] [address] 12/09/2023 9:50 AM EDT Office Visit Vascular Surgery, [facility] [address] [facility] [place] [address] Saul Crenshaw MD [address] [place] [address] 12/16/2023 9:40 AM EDT Home Visit [facility] at [facility] [place] [address] Yon Bell PA-C [address] [place] [address] Lashanda Putnam, Community Health Biological Science Technician [place] [address] [place] [address] 12/23/2023 10:00 AM EST Imaging Radiology [facility] [address] [facility] [place] [address] 12/30/2023 10:10 AM EST Office Visit Vascular Surgery, [facility] [address] [facility] [place] [address] Saul Crenshaw MD [address] [place] [address] 04/12/2024 10:30 AM EST Office Visit Cardiology, [facility] [address] [address] Shaquille Le, DO [address] [place] [address] 08/11/2024 10:20 AM EDT Office Visit Family [facility] [place] [address] Gabi Vinson CRNP [address] [place] [address] 11/15/2024 10:20 AM EDT Office Visit Family Practice [facility] [address] [facility] [place] [address] Edgardo Sánchez, [address] [place] [address] Health Maintenance Due Date Last Done Comments Adult Wellness Visit 2002 *BISPHONATE OR OTHER ACCEPTABLE MEDICATION NEEDED FOR OSTEOPOROSIS (REFER TO SMARTSET #1146) 05/11/2020 Diabetic Eye Exam 01/20/2023 01/20/2022, 01/29/2000 Diabetic Foot Exam 06/04/2023 06/03/2022 COVID-19 Vaccine ( season) 2023 Influenza Vaccine (FLU shot) (#1) 2023 11/16/2022, 11/09/2021, 11/19/2020, Additional history exists CKD PHOS USE SMARTSET 06131 01/15/202412/18, 06/03/2021, 04/24/2021, Additional history exists HbA1c 05/10/2024 11/11/2023, 12/18, 01/20/2022, Additional history exists Depression Screening 11/10/2024 11/11/2023 TSH 11/10/2024 11/11/2023, 08/18, 01/14/2023, Additional history exists Albumin/Creatinine Ratio 11/15/2024 024, 01/16/2023, 06/03/2021, Additional history exists O2 ASSESSMENT COMPLETED IN PAST YEAR FOR COPD 11/26/2024 11/27/2023 CKD HGB USE SMARTSET 99002 11/27/202411/27, 11/27/2023, 11/16/2023, Additional history exists DTap/Tdap Vaccines (3 - Td or Tdap) 06/09/2032 06/09/2022, 09/15/2011, 01/16/1994 VITAMIN D LEVEL ONCE IN A LIFETIME-USE SMARTSET# 88374 Completed 03/29/2012, 10/24/2008 Pneumococcal Vaccine: 65+ Years [...] this encounter Medical Devices Implanted Type Area Vehicle Cost Engineer Device Identifier Shelf Expiration Date Model / Serial / Lot Lens Intraoc 19.0 - [id number] - [id number] Implanted:Qty: 1 on 06/18/2021 by Gilmer Davalos MD at OR [facility] Right: Eye [employer] 02/15/2026 [id number] / [id number] Plug Vasc Ampl 12mm 9-Plug-012 - [id number] Implanted:Qty: 1 on 11/27/2023 by Saul Crenshaw MD at OR [facility] Right: Iliac [employer] [id number] 2027 9-PLUG-01 [id number] 11mm X 10cm X 120cm Viabahn Endoprosthesis Stent Graft, With Heparin Bioactive Surface Implanted:Qty: 1 on 11/27/2023 by Saul Crenshaw MD at OR [facility] Right: Iliac [employer] [id number] 07/19/2026 [id number] / [id number] / [id number] Graft Abdominal 32x14.1dgs50zn Stent Control Trunk Ipsilateral System Leg Aortic Aneurysm Conformable Endoprosthesis With Active Excluder Aaa - [id number] Implanted:Qty: 1 on 11/27/2023 by Saul Crenshaw MD at OR [facility] N/A: Aorta [employer] [id number] 07/14/2026 [id number] / / [id number] Grft Excldr 19xiu38.5cm - [id number] Implanted:Qty: 1 on 11/27/2023 by Saul Crenshaw MD at OR [facility] Left: Iliac [employer] 12/03/2025 [id number] / [id number] / [id number] Graft Excludr 92eql02h77xk - [id number] Implanted:Qty: 1 on 11/27/2023 by Saul Crenshaw MD at OR [facility] Right: Iliac [employer] [id number] 07/29/2026 [id number] / [id number] / [id number] documented as of this encounter Advance Directives * Full Code (Latest Code Status on File) Date Activated Date Inactivated Comments 11/27/2023 11:28 AM 11/28/2023 7:06 PM This orde r reflects the patients wishes and were consensually agreed upon. Question Answer Comments Discussion of Advance Direct matt occurred with: Not Discussed due to patient's condition Care Teams Rest Room Maid Relationship Specialty Start Date End Date Edgardo Sánchez DO [address] [address] PCP - General Family Medicine 03/09/19 documented as of this encounter
--- OUTSIDE RECORDS SUMMARY | 2024-04-03 21:57 | External Medical Summary ---
Author Name Unknown Address Unknown Organization K01:[facility] [address] Laboratory Report Ordering Provider Test Date Status AMARA CRAMER 11/28/2023 05:57:00 Final Observation Date Value Abnormality Reference (Units ) Status WBC, Total 11/28/2023 05:57:00 11.52 Above high normal 4.00-10.80 (K/uL) Final RBC 11/28/2023 05:57:00 3.34 4.50-5.25 (M/uL) Final Hemoglobin 11/28/2023 05:57:00 10.3 Below low normal 14.0-16.8 (g/dL) Final HCT 11/28/2023 05:57:00 32.6 Below low normal 40.0-48.4 (%) Final MCV 11/28/2023 05:57:00 97.6 82.0-99.5 (fL) Final MCH 11/28/2023 05:57:00 30.8 27.0-34.0 (pg) Final MCHC 11/28/2023 05:57:00 31.6 32.0-36.0 (g/dL) Final RDW 11/28/2023 05:57:00 15.9 11.5-15.5 (%) Final Platelets 11/28/2023 05:57:00 187 140-400 (K/uL) Final MPV 11/28/2023 05:57:00 11.1 6.6-11.1 (fL) Final Nucleated erythrocytes/100 leukocytes [Ratio] in Blood by Automated count 11/28/2023 05:57:00 0 <=0 (/100 WBCs) Final Performing Location [facility] [place] [address] [place] [address]
--- OUTSIDE RECORDS SUMMARY | 2024-04-03 21:57 | External Medical Summary | Summary of Care ---
Author Name Unknown Organization [facility] Address [address] [place] [address] Phone [phone] Care Team Providers Care Hot Sealing Machine Operator Name Role Phone Edgardo Sánchez Primary Care Provider Encounter Details Date Type Department Care Team (Late st Contact Info) Description 11/30/2023 Population Health External Data Unspecified Department Allergies [...] MORNING 100 Tablet 3 07/21/2023 5 Active Incruse Ellipta 62.5 MCG/ACT Inhalation Aerosol Powder Breath Activated (umeclidinium [place])Indications:C OPD, group A, by GOLD 2017 classification ([facility]) Inhale 1 Puff by mouth in the morning. 90 Each 11/16/2023 Active Fluticasone-Salmetero l 500-50 MCG/ACT Inhalation Aerosol Powder Breath Activated (Advair Diskus)Indications:CO PD, group A, by GOLD 2017 classification ([facility]) INHALE ONE PUFF BY MOUTH [...] fracture 05/09/2020 Coronary artery disease invo lving [place] coronary artery of [place] heart without angina pectoris 05/09/2020 COPD, group A, by GOLD 2017 classification 11/27 Overview: Per COPD GOLD Classification History of [place] (myocardial infarction) 07/11/2016 Abdominal aortic aneurysm (AAA) [...] on file documented as of this encounter Plan of Treatment Upcoming Encounters Date Type Department Care Team (Late st Contact Info) Description 12/23/2023 10:00 AM EST Imaging Radiology [facility] [address] [facility] [place] [address] 12/30/2023 10:10 AM EST Office Visit Vascular Surgery, [facility] [address] [facility] [place] [address] Saul Crenshaw MD [address] [place] [address] 04/12/2024 10:30 AM EST Office Visit Cardiology, [facility] [address] [facility] [place] [address] Shaquille Le, DO [address] [place] [address] 08/11/2024 10:20 AM EDT Office Visit Family Practice [facility] [address] [place] [address] Gabi Vinson CRNP [address] [place] [address] 11/15/2024 10:20 AM EDT Office Visit Family Practice [facility] [address] [place] [address] Edgardo Sánchez, [address] [place] [address] Health Maintenance Due Date Last Done Comments Adult Wellness Visit 2002 *BISPHONATE OR OTHER ACCEPTABLE MEDICATION NEEDED FOR OSTEOPOROSIS (REFER TO SMARTSET #1146) 05/11/2020 Diabetic Eye Exam 01/20/2023 01/20/2022, 01/29/2000 Diabetic Foot Exam 06/04/2023 06/03/2022 COVID-19 Vaccine ( season) 2023 Influenza Vaccine (FLU shot) (#1) 2023 11/16/2022, 11/09/2021, 11/19/2020, Additional history exists CKD PHOS USE SMARTSET 14462 01/15/202412/18, 06/03/2021, 04/24/2021, Additional history exists HbA1c 05/10/2024 11/11/2023, 12/18, 01/20/2022, Additional history exists Depression Screening 11/10/2024 11/11/2023 TSH 11/10/2024 11/11/2023, 08/18, 01/14/2023, Additional history exists Albumin/Creatinine Ratio 11/15/2024 024, 01/16/2023, 06/03/2021, Additional history exists O2 ASSESSMENT COMPLETED IN PAST YEAR FOR COPD 11/26/2024 11/27/2023 CKD HGB USE SMARTSET 82811 11/27/202411/27, 11/27/2023, 11/16/2023, Additional history exists DTap/Tdap Vaccines (3 - Td or Tdap) 06/09/2032 06/09/2022, 09/15/2011, 01/16/1994 VITAMIN D LEVEL ONCE IN A LIFETIME-USE SMARTSET# 88513 Completed 03/29/2012, 10/24/2008 Pneumococcal Vaccine: 65+ Years [...] this encounter Medical Devices Implanted Type Area Web Services Manager Device Identifier Shelf Expiration Date Model / Serial / Lot Lens Intraoc 19.0 - [id number] - [id number] Implanted:Qty: 1 on 06/18/2021 by Gilmer Davalos MD at OR [facility] Right: Eye [employer] 02/15/2026 [id number] / [id number] Plug Vasc Ampl 12mm 9-Plug-012 - [id number] Implanted:Qty: 1 on 11/27/2023 by Saul Crenshaw MD at OR [facility] Right: Iliac [employer] [id number] 2027 9-PLUG-01 [id number] 11mm X 10cm X 120cm Viabahn Endoprosthesis Stent Graft, With Heparin Bioactive Surface Implanted:Qty: 1 on 11/27/2023 by Saul Crenshaw MD at OR [facility] Right: Iliac [employer] [id number] 07/19/2026 [id number] / [id number] / [id number] Graft Abdominal 32x14.0zmn07ed Stent Control Trunk Ipsilateral System Leg Aortic Aneurysm Conformable Endoprosthesis With Active Excluder Aaa - [id number] Implanted:Qty: 1 on 11/27/2023 by Saul Crenshaw MD at OR [facility] N/A: Aorta [employer] [id number] 07/14/2026 [id number] / / [id number] Grft Excldr 58pnw32.5cm - [id number] Implanted:Qty: 1 on 11/27/2023 by Saul Crenshaw MD at OR [facility] Left: Iliac [employer] 12/03/2025 [id number] / [id number] / [id number] Graft Excludr 19tbe70z32ce - [id number] Implanted:Qty: 1 on 11/27/2023 by Saul Crenshaw MD at OR [facility] Right: Iliac [employer] [id number] 07/29/2026 [id number] / [id number] / [id number] documented as of this encounter Advance Directives * Full Code (Latest Code Status on File) Date Activated Date Inactivated Comments 11/27/2023 11:28 AM 11/28/2023 7:06 PM This orde r reflects the patients wishes and were consensually agreed upon. Question Answer Comments Discussion of Advance Direct matt occurred with: Not Discussed due to patient's condition Care Teams Hot Sealing Machine Operator Relationship Specialty Start Date End Date Edgardo Sánchez DO [address] [place] [address] PCP - General Family Medicine 03/09/19 documented as of this encounter
--- OUTSIDE RECORDS SUMMARY | 2024-04-03 21:57 | External Medical Summary | Summary of Care ---
Author Name Unknown Organization [facility] Address [address] [place] [address] Phone [phone] Care Team Providers Care Offset Lithographic Press Operator Name Role Phone Edgardo Sánchez DO Primary Care Provider Reason for Visit * Reason Onset Date Comments [facility]: Engagement 11/30/2023 Encounter Details Date Type Department Care Team (Late st Contact Info) Description 11/30/2023 Telephone [facility], [place] [address] [place] [phone] [facility], JEANNETTE [address] [place] [address] [facility]: Engagement Allergies [...] MCG/ACT Inhalation Aerosol Powder Breath Activated (umeclidinium [place])Indications:C OPD, group A, by GOLD 2017 classification ([facility]) Inhale 1 Puff by mouth in the morning. 90 Each 11/16/2023 Active Fluticasone-Salmetero l 500-50 MCG/ACT Inhalation Aerosol Powder Breath Activated (Advair Diskus)Indications:CO PD, group A, by GOLD 2017 classification ([facility]) INHALE ONE PUFF BY MOUTH TWICE [...] fracture 05/09/2020 Coronary artery disease invo lving [place] coronary artery of [place] heart without angina pectoris 05/09/2020 COPD, group A, by GOLD 2017 classification 11/27 Overview: Per COPD GOLD Classification History of [place] (myocardial infarction) 07/11/2016 Abdominal aortic aneurysm (AAA) [...] encounter Miscellaneous Notes * Telephone Encounter - Mercy Lubin OSA - 11/30/2023 11:18 AM EDT Outreach to patient for [facility] scheduling. Patient Accepted Date Scheduled: 11/30 Time: 1230 In Person RNCM Special Instructions: na documented in this encounter Plan of Treatment Upcoming Encounters Date Type Department Care Team (Late st Contact Info) Description 12/01/2023 12:30 PM EDT Home Visit Josiah at [place], [facility] [address] [place] [address] Christ Early, DIAN[place] [address] [place] [address] 12/16/2023 9:40 AM EDT Home Visit Josiah at [facility] [address] [place] [address] Yon Bell PA-C [address] [place] [address] Lashanda Putnam, Community Health Chainsaw Mechanic [address] [facility] [place] [address] 12/23/2023 10:00 AM EST Imaging Radiology [address] [place] [address] 12/30/2023 10:10 AM EST Office Visit Vascular Surgery, [facility] [address] [place] [address] Saul Crenshaw MD [address] [facility] [address] 04/12/2024 10:30 AM EST Office Visit Cardiology, [facility] [address] [place] [address] Shaquille Le, DO [address] [place] [address] 08/11/2024 10:20 AM EDT Office Visit Family Practice [facility] [address] [place] [address] Gabi Vinson CRNP [address] [place] [address] 11/15/2024 10:20 AM EDT Office Visit Family Practice [facility] [address] [place] [address] Edgardo Sánchez, DO [address] [place] [address] Health Maintenance Due Date Last Done Comments Adult Wellness Visit 2002 *BISPHONATE OR OTHER ACCEPTABLE MEDICATION NEEDED FOR OSTEOPOROSIS (REFER TO SMARTSET #1146) 05/11/2020 Diabetic Eye Exam 01/20/2023 01/20/2022, 01/29/2000 Diabetic Foot Exam 06/04/2023 06/03/2022 COVID-19 Vaccine ( season) 2023 Influenza Vaccine (FLU shot) (#1) 2023 11/16/2022, 11/09/2021, 11/19/2020, Additional history exists CKD PHOS USE SMARTSET 71991 01/15/2024 11/2 10/2022, 06/03/2021, 04/24/2021, Additional history exists HbA1c 05/10/2024 11/11/2023, 12/18, 01/20/2022, Additional history exists Depression Screening 11/10/2024 11/11/2023 TSH 11/10/2024 11/11/2023, 08/18, 01/14/2023, Additional history exists Albumin/Creatinine Ratio 11/15/2024 024, 01/16/2023, 06/03/2021, Additional history exists O2 ASSESSMENT COMPLETED IN PAST YEAR FOR COPD 11/26/2024 11/27/2023 CKD HGB USE SMARTSET 97741 11/27/202411/27, 11/27/2023, 11/16/2023, Additional history exists DTap/Tdap Vaccines (3 - Td or Tdap) 06/09/2032 06/09/2022, 09/15/2011, 01/16/1994 VITAMIN D LEVEL ONCE IN A LIFETIME-USE SMARTSET# 05514 Completed 03/29/2012, 10/24/2008 Pneumococcal Vaccine: 65+ Years [...] this encounter Medical Devices Implanted Type Area Supervisor Cereal Device Identifier Shelf Expiration Date Model / Serial / Lot Lens Intraoc 19.0 - [id number] - [id number] Implanted:Qty: 1 on 06/18/2021 by Gilmer Davalos MD at OR [facility] Right: Eye [employer] 02/15/2026 [id number] / [id number] Plug Vasc Ampl 12mm 9-Plug-012 - [id number] Implanted:Qty: 1 on 11/27/2023 by Saul Crenshaw MD at [place] [facility] Right: Iliac [employer] [id number] 2027 9-PLUG- [id number] 11mm X 10cm X 120cm Viabahn Endoprosthesis Stent Graft, With Heparin Bioactive Surface Implanted:Qty: 1 on 11/27/2023 by Saul Crenshaw MD at [place] [facility] Right: Iliac [employer] [id number] 07/19/2026 [id number] / [id number] / [id number] Graft Abdominal 32x14.8hjx32bc Stent Control Trunk Ipsilateral System Leg Aortic Aneurysm Conformable Endoprosthesis With Active Excluder Aaa - [id number] Implanted:Qty: 1 on 11/27/2023 by Saul Crenshaw MD at [place] [facility] N/A: Aorta [employer] [id number] 07/14/2026 [id number] / / [id number] Grft Excldr 58tuz93.5cm - [id number] Implanted:Qty: 1 on 11/27/2023 by Saul Crenshaw MD at [place] [facility] Left: Iliac [employer] 12/03/2025 [id number] / [id number] / [id number] Graft Excludr [id number] - [id number] Implanted:Qty: 1 on 11/27/2023 by Saul Crenshaw MD at [place] [facility] Right: Iliac [employer] [id number] 07/29/2026 [id number] / [id number] / [id number] documented as of this encounter Advance Directives * Full Code (Latest Code Status on File) Date Activated Date Inactivated Comments 11/27/2023 11:28 AM 11/28/2023 7:06 PM This orde r reflects the patients wishes and were consensually agreed upon. Question Answer Comments Discussion of Advance Direct matt occurred with: Not Discussed due to patient's condition Care Teams Offset Lithographic Press Operator Relationship Specialty Start Date End Date Edgardo Sánchez DO [address] [place] [address] PCP - General Family Medicine 03/09/19 documented as of this encounter
--- OUTSIDE RECORDS SUMMARY | 2024-04-03 21:57 | External Medical Summary ---
Author Name Unknown Address Unknown Organization K01:[facility] [place] [address] [place] [address] Laboratory Report Ordering Provider Test Date Status AMARA CRAMER 11/28/2023 05:57:00 Final Observation Date Value Abnormality Reference (Units ) Status BUN 11/28/2023 05:57:00 35 Above high normal 6-20 (mg/dL) Final Creatinine 11/28/2023 05:57:00 1.9 Above high normal 0.6-1.2 (mg/dL) Final Glomerular filtration rate/1.73 sq M.predicted [Volume Rate/Area] in Serum, Plasma or Blood by Creatinine-based formula (CKD-EPI) 11/28/2023 05:57:00 33 Below low normal >=60 (mL/min) Final eGFR is calculated based on the CKD-EPI 2020 equation. Sodium 11/28/2023 05:57:00 138 135-146 (m mol/L) Final Potassium 11/28/2023 05:57:00 4.7 3.5-5.1 (m mol/L) Final Cl 11/28/2023 05:57:00 104 98-107 (mm ol/L) Final CO2 11/28/2023 05:57:00 24 22-32 (mmo l/L) Final Anion gap 11/28/2023 05:57:00 10 7-15 (mmol /L) Final Glucose 11/28/2023 05:57:00 124 Above high normal 70 -120 (mg/dL) Final Calcium 11/28/2023 05:57:00 8.2 Below low normal 8.4 -10.2 (mg/dL) Final Performing Location [facility]ORY [facility] - [address] [place] [address]
--- OUTSIDE RECORDS SUMMARY | 2024-04-03 21:57 | External Medical Summary | Summary of Care ---
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 RADIOLOGY SUPERVISION & INTERPRETATION ONE ENDOPROSTHESIS OPEN FEMORAL ARTERY EXPOSURE FOR ENDOVASCULAR PROSTHESIS PERCUTANEOUS ACCESS/CLOSURE FEMORAL ARTERY FOR ENDOGRAFT, INC ULTRASOUND GUIDANCE, UNILATERAL Saul Crenshaw MD [address] [place] [address] Or [facility] [address] [place] [address] Referral ID Status Reason Start Date Expiration Date Visits Re quested Visits Authorized [id number] Encounter Details Date Type Department Care Team (Latest Contact Info) Description 11/27/2023 5:56 AM EDT - 11/28/2023 3:06 PM EDT Hospital Encounter [facility] 8, [employer] [facility] 8th Floor [address] [place] [address] Saul Crenshaw MD [address] [place] [address] Various: KRAVS,EKG Discharge Disposition: Home - Self Care Allergies Active Allergy Reactions Criticality Noted Date Comments Latex 07/21/2016 Pt states he breaks out from this documented as of this encounter (statuses as of 11/29/2023) Medications Medication Sig Dispensed Refills Start Date End Date Status ASPIRIN 81 MG PO TABSIndications:Coron syed atherosclerosis 1 daily 0 0 05/17/2007 Active VITAMIN D 1000 UNIT PO CAPS 1 capsule daily 0 0 12/08/2008 Active Multi-Vitamins Oral Tablet Take 1 Tablet by mouth in the morning. Active Albuterol Sulfate HFA 108 (90 Base) MCG/ACT Inhalation Aerosol SolutionIndications:C OPD exacerbation ([facility]) Inhale 2 Puffs by mouth [...] MCG/ACT Inhalation Aerosol Powder Breath Activated (umeclidinium Suffern)Indications:C OPD, group A, by GOLD 2017 classification ([facility]) Inhale 1 Puff by mouth in the morning. 90 Each 11/16/2023 Active Fluticasone-Salmetero l 500-50 MCG/ACT Inhalation Aerosol Powder Breath Activated (Advair Diskus)Indications:CO PD, group A, by GOLD 2017 classification ([facility]) INHALE ONE PUFF BY MOUTH [...] as of this encounter (statuses as of 11/29/2023) Active Problems Problem Noted Date Diagnosed Date [...] fracture 05/09/2020 Coronary artery disease invo lving [place] coronary artery of [place] heart without angina pectoris 05/09/2020 COPD, group [...] CHR ISCHEMIC HRT DIS NOS 03/31/2002 Overview: [place] documented as of this encounter (statuses as of 11/29/2023) Resolved Problems Problem Noted Date Diagnosed Date [...] as of this encounter (statuses as of 11/29/2023) Immunizations Name Administration Dates Next Due H1N1 [...] Sign Reading Time Taken Comments Blood Pressure 115/64 11/28/2023 11:04 AM EDT Pulse 51 11/28/2023 11:04 AM EDT Temperature 36.4 C (97.5 F) 11/28/2023 11:04 AM E DT Respiratory Rate 16 11/28/2023 11:04 AM EDT Oxygen Saturation 99% 11/28/2023 11:04 AM EDT Inhaled Oxygen Concentration - - Weight 84.4 kg (186 lb) 11/27/2023 6:20 AM EDT Height 170.2 cm (5' 7") 11/27/2023 6:20 AM EDT Body Mass Index 29.13 11/27/2023 6:20 AM EDT documented in this encounter Discharge Instructions * Discharge Instr - AVS* Andrew Aguilar MD - 11/28/2023 10:48 AM EDT You had an endograft (stent graft) repair of your abdominal aortic aneurysm. Should you experience any increased pain, drainage/redness, incision separation, fever greater than 101 degrees, or increased swelling of your groin incisions, please call your vascular surgery office to discuss with an advanced practitioner or physician dairy nutrition consultant. If you leave with any bandages, remove those 48 hours following your surgery. You may take a shower and wash over the incision with soap and water. Do not soak the incision (i.e. take a bath) until the incision is completely healed. It is common to experience constipation following aneurysm surgery. We recommend taking MiraLAX (Polyethylene Glycol 3350) or a generic equivalent as needed to keep stools soft and regular to avoid straining and pressure on incision (especially while taking Percocet or other narcotic analgesics). Do not drive a car until you are walking normally and pain free (usually 7 to 14 days) and have stopped taking narcotic pain medicine. Any invasive procedure, such as dental work, endoscopy, colonoscopy, cystoscopy, etc. should be avoided in the first 3 months following surgery. Routine dental work should be avoided in the first 3 months after your aneurysm surgery. For the rest of your life, any invasive dental work (more than just a routine cleaning), such as root canal procedures, dental extractions or periodontal scaling will require oral antibiotic prophylaxis (taking an antibiotic pill prior to your dental procedure), which can be ordered by your primary care provider or dentist. documented in this encounter Progress Notes * Andrew Aguilar MD - 11/28/2023 7:24 AM EDT PROGRESS NOTE - Vascular Surgery [facility] [address] Name: Nitin Pickett Location: [facility] H857/[id number] Date: 11/28/2023 Time: 7:24 AM DIAGNOSIS: 6 cm Abdominal Aortic Aneurysm PROCEDURE: Endovascular Abdominal Aortic Aneurysm Repair DATE OF SURGERY: 11/27/2023 POST OP DAY: 1 SUBJECTIVE: Patient seen and examined at bedside. Recovering well. No complaints. Tolerating diet without issue. Feeling well. No acute events overnight. No fevers, chills, chest pain, shortness of breath. OBJECTIVE: Most Recent Vital Signs: BP: 106 mmHg/59 mmHg (11/28/23241) Pulse: 60 (11/28/23241) Resp: 18 (11/28/23241) Temp: 36.5 C (11/28/23241) Temp Summary: Temp Min: 35.7 C (96.3 F) Max: 36.5 C (97.7 F) SpO2: 95 % (11/28/23241) O2 flow rate: 2 L/MIN (11/27/23 151) Supplemental O2 Delivery: Room Air, None (11/28/23241) Vital Signs Last 24 Hours: Systolic BP: Most Recent Systolic BP Av.9 mmHg Min: 105 mmHg Max: 157 mmHg Temperature: Most Recent Temperature Av.1 C Min: 35.72 C Max: 36.5 C Pulse: Pulse Av.3 Min: 57 Max: 79 Respirations: Resp Av.3 Min: 11 Max: 19 SpO2: SpO2 Av.3 % Min: 94 % Max: 100 % In / Out Past 24 Hrs: Intake/Output Summary (Last 24 hours) at 11/28/2023 0724 Last data filed at 11/28/2023 0627 Gross per 24 hour Intake 1168 ml Output 850 ml Net 318 ml Physical Exam: Consitutional: No acute distress Cards: warm and well perfused Pulm: no increased work of breathing Surgical site: Right groin without bruising, no tenderness; Left groin with prevena in place with adequate suction Genitourinary: ellington in place Neuro: alert, conversant, motor and sensation grossly intact LABS: Labs reviewed as indicated below: Blood Gas: No results in the last 7 days - inpatent use only Chemistry Panel: Lab results within last 7 days (see chart for full results) Units 11/28/23 0557 11/27/23 1148 SODIUM mmol/L 138 137 POTASSIUM mmol/L 4.7 4.9 CHLORIDE mmol/L 104 105 CO2 mmol/L 24 22 EGFR mL/min 33* 38* BUN mg/dL 35* 32* CREATININE mg/dL 1.9* 1.7* GLUCOSE mg/dL 124* 160* CALCIUM mg/dL 8.2* 8.2* ANION GAP mmol/L 10 10 Complete Blood Count: Lab results within last 7 days (see chart for full results) Units 11/28/23 0557 11/27/23 1148 WBC K/uL 11.52* 8.74 HGB g/dL 10.3* 10.5* HCT % 32.6* 32.4* PLT K/uL 187 181 MCV fL 97.6 95.0 IMAGING: N/A IMPRESSION and PLAN: Principal Problem: Abdominal aortic aneurysm (AAA) without rupture (HCC) Resolved Problems: * No resolved hospital problems. * Mr. Pickett is an 88-year-old male POD 1 s/p EVAR. Recovering appropriately. No complaints. -Remove ellington catheter -Maintain Prevena on left groin -Encourage ambulation -Multimodal pain control as needed -Pending void check and ambulation, patient stable for discharge Silvia Wilson MS-IV I agree with all components of the medical student note. Andrew Aguilar MD Vascular Surgery PGY1 [facility] Associated attestation - Delgado Pat MD - 11/28/2023 9:16 AM EDT I saw and evaluated the patient today. I have reviewed the resident/fellow physician note and agree. documented in this encounter H&P Notes * Andrew Aguilar MD - 11/27/2023 5:48 AM EDT Images from the original note were not included. HISTORY AND PHYSICAL EXAMINATION - Vascular Surgery [facility] [address] Name: Nitin Pickett Location: [place] [facility]/OR Date: 11/27/2023 Time: 6:45 AM PRESENTING PROBLEM: Abdominal aortic aneurysm HISTORY OF PRESENT ILLNESS: Nitin Pickett is a 88 year old, male that presents to pre-op today for EVAR with Dr. Crenshaw. Since the last clinic visit, No ED visits or hospitalizations. He does not report any new issues or complaints since the last clinic visit. Also denies fevers, chills, night sweats, nausea, vomiting, diarrhea, chest pain, and shortness of breath. Does the patient take Coumadin (warfarin)? no Does the patient take any other anticoagulants? no Last Clinic Visit (09/30/23) Date of Service: 09/30/2023 9:30 AM Nitin Pickett is a 88 year old male. Patient being seen in consultation at the request of Edgardo Sánchez DO Chief Complaint: Surveillance of AAA and bilateral KALIE aneurysms Remains asymptomatic from his AAA No changes in health since last visit, in May Remains a reformed smoker Lives in own home, no issues with ADLs, taking care of himself, etc. 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 HPI: Patient is a reformed smoker [...] Patient reports chronic R hip pain Current Medications Current Outpatient Medications Medication Sig Dispense Refill ASPIRIN 81 MG PO TABS 1 daily 0 0 VITAMIN D 1000 UNIT PO CAPS 1 capsule daily 0 0 Multi-Vitamins Oral Tablet Take 1 Tablet by mouth in the morning. Albuterol Sulfate HFA 108 (90 Base) MCG/ACT Inhalation Aerosol Solution Inhale 2 Puffs by mouth every 6 hours as needed for Shortness of Breath. (Patient not taking: Reported on 05/27/2023) 18 g 3 Boostrix 5-2.5-18.5 LF-MCG/0.5 Suspension Prefilled Syringe (Kljoylv-Vzwvgu-Eutha Pertussis) administer 0.5 ml intramuscularly as directed (Patient not taking: Reported on 09/17/2023) 0.5 mL 0 Diclofenac Sodium 1 % External Gel (Voltaren) Apply 4 g topically to affected area 3 times a day asneeded for Pain, Moderate. Apply to the affected knee as needed. 1100 g 5 Levothyroxine Sodium 100 MCG [...] MOUTH IN THE MORNING 90 Tablet 2 Fluticasone-Salmeterol 500-50 MCG/ACT Inhalation Aerosol Powder Breath Activated (Advair Diskus) INHALE ONE PUFF BY MOUTH TWICE A DAY IN THE MORNING AND BEFORE BEDTIME 180 Each 2 Amiodarone HCl 200 MG Oral Tablet (Cordarone) TAKE ONE TABLET BY MOUTH EVERY MORNING 100 Tablet 3 Tiotropium Suffern Monohydrate 18 MCG Inhalation Capsule (Spiriva HandiHaler) INHALE ONE CAPSULE BYMOUTH IN THE MORNING FOR INHALER ONLY DO NOT SWALLOW 90 Capsule 3 No current facility-administered medications for this visit. Allergies Review of patient's allergies indicates: Allergen Reactions Latex Pt states he breaks out from this Problem List Patient Active Problem List Diagnosis CHR ISCHEMIC HRT DIS NOS ADVANCE DIRECTIVE INFORMATION DYSLIPIDEMIA, GOAL LDL BELOW 100 Hypothyroidism due to medication HTN, goal below 140/90 Beta-blockers contraindicated Abdominal aortic aneurysm (AAA) without rupture (HCC) Paroxysmal atrial fibrillation (HCC) History of CT (myocardial infarction) COPD, group A, by GOLD 2017 classification (HCC) Asymptomatic bilateral carotid artery stenosis Age-related osteoporosis without current pathological fracture Coronary artery disease involving [place] coronary artery of [place] heart without angina pectoris Type 2 diabetes mellitus with hemoglobin A1c goal of less than 8.0% (HCC) 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, bilateral (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) Chronic kidney disease, stage 3b (HCC) 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) Past Medical History Past Medical History: Diagnosis Date Acute CT (HCC) Myocardial Infarction Atrial fibrillation (HCC) on amniodaronedr lara Benign neoplasm of colon colonoscopy, [place] Benign neoplasm of colon 04/19/07 adenomatous repeat colonoscopy in 3 yrs Calculus of kidney Cardiac catheterization as the cause of abnormal reaction of patient, or of later complication, without mention of misadventure at time of procedure at [place] Chest pain [facility] admission, CT rled out, on [facility] service Coronary atherosclerosis [facility] [address] History of CT (myocardial infarction) 07/11/2016 Past Surgical History Past Surgical History: Procedure Laterality Date COLONOSCOPY W/ LESION REMOVAL, SNARE 04/23 repeat 3 yrs adenomatous COLONOSCOPY, GI REFERRAL OP may 2002 dr villarreal, [place] except for hemorrhoids. next in may 2007 COLORECTAL CANCER SCREEN; COLON 07/23/2010 diverticulosis EXPLORE PARATHYROID GLANDS N/A 08/25/2016 PARATHYROIDECTOMY performed by Jose Alvarado DO at OR [facility] REMOVE CATARACT, INSERT LENS PROSTH right REMOVE CATARACT, INSERT LENS PROSTH Right 06/18/2021 Right EXTRACAPSULAR CATARACT REMOVAL WITH INTRAOCULAR LENS performed by Gilmer Davalos MD at OR [facility] SINGLE LOBECTOMY, LUNG 1985 right- resected HAMARTOMA THROMBOENDARECTOMY W/PATCH,NECK INCISION 04/04/08 Right carotid endarterectomy with bovine patch angioplasty 04/04/[address] Arshad VASECTOMY 1970 Family History Family History Problem Relation Name Age of [...] date: 02/16/1956 Quit date: 02/16/1985 Years since quittin.6 Smokeless tobacco: Never Vaping Use Vaping status: Never Used Substance and Sexual Activity Alcohol use: Yes Comment: 1 beer per week Drug use: No Sexual activity: Not Currently Partners: Female Comment: problems with impotence Other Topics Concern Not on file Social History Narrative Not on file Social Determinants of Health Financial Resource Strain: Not on file Food Insecurity: No Food Insecurity (10/12/2019) Hunger Vital Sign Worried About Running Out of Food in the Last Year: Never true Ran Out of Food in the Last Year: Never true Transportation Needs: Not on file Social Connections: Unknown (08/04/2023) Social Connections How often do you feel lonely or isolated from those around you? (Adult - for ages 18 years and over): Not on file Housing Stability: Not on file COMPLETE REVIEW OF SYSTEMS: [...] and No edema. Reports remote history of CT GI/Abd: No abdominal pain, No change in bowel habits, No significant change in appetite and No blood in stools or black tarry stools Skin: no rash Neurologic: No TIA symptoms, No CVA symptoms and No syncope Psychiatric: No depression, No anxiety and No psychosis VITAL SIGNS: BP 128/72 (BP Site: Left Arm, BP Position: Sitting, BP Cuff Size: Regular) | Pulse 65 | Temp 36.1 C (96.9 F) (Tympanic) | Wt 86.3 kg (190 lb 4.8 oz) | BMI 27.31 kg/m | BSA 2.06 m GENERAL MULTI-SYSTEM PHYSICAL EXAM: GENERAL: Normal grooming habits, no acute distress and appears stated age. NECK: No masses. RESPIRATORY: respiratory effort normal and breath sounds normal. CARDIOVASCULAR: RRR, no heart murmurs, no edema [...] Motor function intact and Sensory exam intact PULSE SCALE: Carotid Right:----Bruit: No Left:----Bruit: No Radial Right: 2 Left: 2 Femoral Right: 2 Left: 2 Popliteal Right: 2 Left: 2 Dorsalis Pedis Right: 2 Left: 2 Posterior Tibial Right: 1 Left: 1 PULSE SCALE: 4=Aneurysmal; 3=Normal; 2=Diminished; 1=Barely Palpable; 0=Absent DIAGNOSTIC STUDIES: 09/24/23 CTA C/A/P: Tri-lobed 6.0 cm AAA, RCIA 2.8 cm, LCIA 2.2 cm. Small accessory inferior right renal artery. Nice neck length BTW main renal arteries and start of AAA The above diagnostic images were directly visualized and independently interpreted by me on 09/30/2023 with results as above 05/21/23 CTA Abd/Pelvis: AAA 5.3 x 5.5 cm, RCIA 2.9, LCIA 2.2 cm. Significant lumbar scoliosis 12/03/22 CTA Abd/Pelvis: 5.1 x 5.0 cm infrarenal AAA, RCIA 2.8 cm, LCIA 2.7 cm, nonobstructive plaque in [employer]. Dr. Crenshaw measured @ 5.36 cm, 5.4 [...] Results Component Value Date/Time CREATININE - [facility] 1.7 (H) 09/16/2023 08:59 AM CREATININE - [facility] 1.7 (H) 05/27/2023 11:35 AM CREATININE - [facility] 1.8 (H) 05/20/2023 07:53 AM CREATININE - [facility] 1.4 (H) 10/12/2019 09:08 AM CREATININE - [facility] 1.3 (H) 01/14/2019 08:42 AM CREATININE - [facility] 1.5 (H) 08/23/2018 01:51 PM CREATININE, 24 HOUR URINE - [facility] 1.107 06/30/2016 07:00 AM CREATININE, RANDOM URINE - [facility] 133 01/16/2023 11:35 AM CREATININE, RANDOM URINE - [facility] 139 06/03/2021 08:23 AM CREATININE, RANDOM URINE - [facility] 146 09/13/2015 09:00 AM CREATININE, RANDOM URINE - [facility] 133 09/22/2014 09:14 AM CREATININE-OUTSIDE LAB 1.60 (A) 05/30/2016 12:00 AM Lab Results Component Value Date/Time LDL CHOLESTEROL (CALCULATED) - [facility] 44 01/14/2023 09:23 AM LDL CHOLESTEROL (CALCULATED) - [facility] 50 10/12/2019 09:08 AM LDL CHOLESTEROL (DIRECT MEASURE) - [facility] NOT APPLICABLE 10/12/2019 09:08 AM LDL CHOLESTEROL (DIRECT MEASURE) - [facility] 54 03/28/2014 09:12 AM The above clinical labs were reviewed by me on 09/30/23 IMPRESSIONS: Asymptomatic, 5.5 cm juxtarenal AAA, RCIA 2.8 cm, LCIA 2.2 cm AAA anatomy not suitable for EVAR Mildly impaired LV function, LVEF of 49%, no ischemia on DSE. Follows with [facility], most recent studies & F/U impressions: Chart reviewed. Lexiscan revealed evidence of an old CT (known) without active ischemia. Patient is high [...] natural history of AAA and KALIE aneurysms AAA size beyond threshold for surgery; 5.5 cm for males Continue ASA 81 mg daily for antiplatelet benefits Continue Lipitor 80 mg daily for Pleiotropic effects of statins Re-book for standard EVAR, MARTINEZ, on 11/27/23 Follow-up ~ 1 month, 12/30/23, post op at [facility] with CTA abd and pelvis 1 wk prior The patient was seen and examined with Zach Crenshaw MD. BRITTNI Cook PA-C Section of Vascular and Endovascular Surgery [address] [address] I performed a history and physical examination of the patient and discussed the management with thePhysician Hadoop Admin, Thiago Briscoe PA-C. I reviewed the Physician Hadoop Admin's note and agree with the documented findings and plan of care. Mr. Pickett returns for close follow up of his AAA. On my evaluation, the AAA has measurs 5.6 cm. I reviewed the imaging with the complex aortic aneurysm team with [facility] and we came to the conclusion that standard endograft repair will be appropriate given that we sacrifice the small accessory right renal artery and use a 36 mm endograft. I discussed the plan of repair with Mr. Pickett and his daughter. We discussed the signs and symptoms of symptomatic aneurysm and to return to the emergency room if he experiences any of these. Plan for EVAR on 11/27/23 The patient was counseled at length regarding the nature of aortic disease and the risks, benefits and alternatives of this surgery. I have discussed with the patient that they are at very high risk for the following anticipated complications due to the patient's co-morbidities including , heart attack, respiratory complications, pneumonia, bleeding, infection or urinary tract infection, stroke and the development of buttock claudication or necrosis, intestinal infarction requiring colostomy, kidney failure requiring dialysis, transfusion reaction, graft failure, wound complications such as infection or hematoma requiring surgery, paralysis, and embolus to the legs which would require additional surgery or even amputation. Less common complications discussed were deep vein thrombosis or pulmonary embolism requiring anticoagulation, nerve injury causing such things as weakness, discomfort or burning pain, dye allergy, endoleak, graft migration. The patient understands that there may be a need for immediate or late open conversion to standard aneurysm surgery. The patient understands the graft will have to be monitored life-long with periodic imaging tests such as CT scans with IV contrast. The patient understands that there may be a need for additional interventions such as angiograms, stents, and other interventional radiological or surgical procedures in the future. The patient understands the seriousness of the situation and would like to proceed with surgery. All questions were answered, and informed consent was obtained. [facility] Abdominal Aortic Aneurysm Stent Graft Booklet was given to the patient. Saul Crenshaw MD Vascular Surgeon Department of Vascular Surgery [facility] Saul Crenshaw MD Vascular Surgeon Department of Vascular Surgery [facility] HOSPITAL PROBLEM LIST: Patient Active Problem List Diagnosis CHR ISCHEMIC HRT DIS NOS ADVANCE DIRECTIVE INFORMATION DYSLIPIDEMIA, GOAL LDL BELOW 100 Hypothyroidism due to medication HTN, goal below 140/90 Beta-blockers contraindicated Abdominal aortic aneurysm (AAA) without rupture ([facility]) Paroxysmal atrial fibrillation ([facility]) History of CT (myocardial infarction) COPD, group A, by GOLD 2017 classification ([facility]) Asymptomatic bilateral carotid artery stenosis Age-related osteoporosis without current pathological fracture Coronary artery disease involving [place] coronary artery of [place] heart without angina pectoris Type 2 diabetes mellitus with hemoglobin A1c goal of less than 8.0% (HCC) 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, bilateral (HCC) 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) Chronic kidney disease, stage 3b (HCC) 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) PAST MEDICAL HISTORY: Past Medical History: Diagnosis Date Acute CT (HCC) Myocardial Infarction Atrial fibrillation (HCC) on amndr jane moser Benign neoplasm of colon colonoscopy, [place] Benign neoplasm of colon 04/19/07 adenomatous repeat colonoscopy in 3 yrs Calculus of kidney Cardiac catheterization as the cause of abnormal reaction of patient, or of later complication, without mention of misadventure at time of procedure at [place] Chest pain [facility] admission, CT rled out, on [facility] service [facility] (myocardial infarction) 07/11/2016 PAST SURGICAL HISTORY: Past Surgical History: Procedure Laterality Date COLONOSCOPY W/ LESION REMOVAL, SNARE 04/23 repeat 3 yrs adenomatous COLONOSCOPY, GI REFERRAL OP may 2002 dr villarreal, [place] except for hemorrhoids. next in may 2007 COLORECTAL CANCER SCREEN; COLON 07/23/2010 diverticulosis EXPLORE PARATHYROID GLANDS N/A 08/25/2016 PARATHYROIDECTOMY performed by Jose Alvarado DO at OR [facility] REMOVE CATARACT, INSERT LENS PROSTH right REMOVE CATARACT, INSERT LENS PROSTH Right 06/18/2021 Right EXTRACAPSULAR CATARACT REMOVAL WITH INTRAOCULAR LENS performed by Gilmer Davalos MD at OR [facility] SINGLE LOBECTOMY, LUNG 1985 right- resected HAMARTOMA THROMBOENDARECTOMY W/PATCH,NECK INCISION 04/04/08 Right carotid endarterectomy with bovine patch angioplasty 04/04/[address] Arshad VASECTOMY 1970 FAMILY HISTORY: Family History Problem Relation Name Age of Onset Cancer Father age 50-cancer liver Other (AAA) Other No known family hx of AAA SOCIAL HISTORY: Social History Tobacco Use Smoking status: Former Current packs/day: 0.00 Average packs/day: 1 pack/day for 28.0 years (28.0 ttl pk-yrs) Types: Cigarettes Start date: 02/16/1957 Quit date: 02/16/1985 Years since quittin.8 Smokeless tobacco: Never Vaping Use Vaping status: Never Used Substance Use Topics Alcohol use: Yes Comment: rare Drug use: No CURRENT HOSPITAL MEDICATIONS: Note that completed medications (per the MAR) continue to display for 24 hours. Ordered medicationsto be given in the future also display. Current Facility-Administered Medications Medication Dose Route Frequency Provider ceFAZolin in dextrose (Ancef) ivpb 2 g 2 g IV Piggyback Pre-Op Thiago Briscoe PA-C isolyte-S pH 7.4 infusion Intravenous Continuous Thiago Briscoe PA-C ALLERGIES: Latex ROS: All other systems negative except for those in the history of present illness (HPI). PHYSICAL EXAMINATION: BP: 122 mmHg/68 mmHg (11/27/23633) Pulse: 68 (11/27/23633) Resp: 18 (11/27/23633) Temp: 36.11 C (11/27/23633) Temp Summary: Temp Min: 36.1 C (97 F) Max: 36.1 C (97 F) SpO2: 99 % (11/27/23633) O2 flow rate: Supplemental O2 Delivery: Room Air, None (11/27/23633) Gen: A&Ox3 HENT: Supple, No LAD Pulm: Comfortable on RA Cardio: RRR on monitor Abd: soft, nontender MSK: Spont moves extremities Neuro: No obvious deficits LABS: Labs reviewed as indicated below: No results found for this or any previous visit (from the past 12 hour(s)). IMAGING: No imaging results in the last 72 hours IMPRESSION and PLAN: - Plan for EVAR with Dr. Crenshaw This patient was seen and examined at bedside and will be discussed with Dr Crenshaw. Andrew Aguilar MD Vascular Surgery PGY1 [facility] 11/27/2023 6:45 AM documented in this encounter Procedure Notes * Luiz Mendoza MD - 11/27/2023 10:41 AM EDTAssociated Order(s): EKG REASON FOR STUDY: In PACU;Chest pain CONCLUSIONS: Sinus bradycardia with 1st degree AV block Nonspecific intraventricular conduction block Possible Inferior infarct , age undetermined Abnormal ECG When compared with ECG of 17-Sep-2023 10:35, Minimal criteria for Anterior infarct are no longer Present Borderline criteria for Inferior infarct are now Present Nonspecific T wave abnormality has replaced inverted T waves in Inferior leads Ventricular Rate: 58 Atrial Rate: 58 MT Interval: 236 QRS Duration: 126 QT/QTc: 514/504 ms P-R-T [place]: 81 : 45 : 22 degrees documented in this encounter Consult Notes * Garland Sanders, [facility] - 11/28/2023 3:02 PM EDT PHARMACY MEDICATION TEACHING CONSULT ANTIPLATELET THERAPY [address] [address] Name: Nitin Pickett Location: [facility] H857/[id number] Date: 11/28/2023 Time: 3:00 PM Requesting Service: Vascular Surgery Patient Active Problem List Diagnosis CHR ISCHEMIC HRT DIS NOS ADVANCE DIRECTIVE INFORMATION DYSLIPIDEMIA, GOAL LDL BELOW 100 Hypothyroidism due to medication HTN, goal below 140/90 Beta-blockers contraindicated Abdominal aortic aneurysm (AAA) without rupture (HCC) Paroxysmal atrial fibrillation (HCC) History of CT (myocardial infarction) COPD, group A, by GOLD 2017 classification ([facility]) Asymptomatic bilateral carotid artery stenosis Age-related osteoporosis without current pathological fracture Coronary artery disease involving [place] coronary artery of [place] heart without angina pectoris Type 2 diabetes mellitus with hemoglobin A1c goal of less than 8.0% (HCC) 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, bilateral (HCC) 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) Chronic kidney disease, stage 3b (HCC) 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) Medication covered during teaching session: Clopidogrel Indication for Antiplatelet Therapy: EVAR Duration of Antiplatelet Therapy: per Vascular Surgery Teaching points covered with patient and/or family: Route, Dosage Form and Schedule, Medication Intended Use/Action, Precautions to be Observed while using this Medication, Commonly Encountered Adverse Effects, Methods for Self- monitoring, Laboratory Monitoring, Potential Food and Drug Interactions, Therapeutic Contraindications, Prescription Refill Information, Action for a Missed Dose, and Patient Specific Information Written documentation regarding all of the teaching points was provided to the patient and/or family members present. accepted patient education handout.in AVS Outpatient antiplatelet medication supply: Patient requires a prescription for this antiplatelet medication: Patient is agreeable to using [facility] to obtain the supply. The [facility] program and the primary team has been notified. Family member(s) present: Daughter(s) Patient agreed to allow visitors to attend teaching, if present. Assessment of teaching effectiveness: Good. Pt is starting clopidogrel for new EVAR. I emphasized the importance of taking clopidogrel every day for prevention of in-stent thrombosis. We discussed signs of internal bleeding (black/red blood in stool/emesis, red urine) and to seek medical attention immediately if they occur. Patient aware to avoid NSAIDs and use only APAP as the OTC medication of choice. Family reports no herbal medication usage by patient Family reports no alcohol usage by patient. Patient with no further medication related questions. Has the patient expressed potential cost concerns? No Length of teaching: Brief (less than 15 minutes) Teaching completed according to pharmacy teaching standard 508. Garland Sanders, PharmD, BCCP, CACP, AACC * Loreto Hurt RN - 11/28/2023 2:36 PM EDTAssociated Order(s): CARE MANAGEMENT CONSULT IP See note in Ancillary section. CM to follow during hospital course. Thanks documented in this encounter Nursing Notes * Albino Hylton RN - 11/27/2023 1:56 PM EDT Dual Licensed Skin Assessment completed by Albino Gibson RN and Aurora Gibson RN. The patient is/has a N/A Skin Breakdown (includes non blanchable erythema): Yes - Surgical/Procedural changes only. * Tati Solano NA - 11/27/2023 1:35 PM EDT Post Anesthesia Care Unit Transport Note [address] [address] Dept. Nitin Pickett Transported from PeriOp to : 857 Time: 1325 Care of patient transferred to: [facility] Transported via: Bed Belongings with Patient: YES Pulse : 58 Temp : 36.3 BP : 140 81 Respirations : 14 Pulse Ox : 99 O2 : 2L NC SCDS: On but not activated/no machine * Naty Church RN - 11/27/2023 12:45 PM EDT PERIOP TO IP HANDOFF COMMUNICATION NOTE [address] [address] Name: Nitin Pickett AGE: [age] year old Location: [place] [facility]/OR Date: 11/27/2023 Attention to: Albino Hylton Report from: Naty Church RN Patient arriving via: Bed Time of call: 12:46 PM Phone Ext: tiger text Reason for SBAR (Situation, Background, Assessment, Recommendation) handoff: Admission Sending to: [facility] Emotional/Personal Events & Special Needs: Prescriptions in chart: No Code Status: Full Code Safety Concerns: no safety concerns identified Allergies: Latex PMH: Past Medical History: Diagnosis Date Acute CT (HCC) Myocardial Infarction Atrial fibrillation (HCC) on amndr jane moser Benign neoplasm of colon colonoscopy, iLttle Benign neoplasm of colon 04/19/07 adenomatous repeat colonoscopy in 3 yrs Calculus of kidney Cardiac catheterization as the cause of abnormal reaction of patient, or of later complication, without mention of misadventure at time of procedure at [place] Chest pain [facility] admission, CT rled out, on [place]pp[place] service Coronary atherosclerosis [place] History of CT (myocardial infarction) 07/11/2016 PSH: Past Surgical History: Procedure Laterality Date COLONOSCOPY W/ LESION REMOVAL, SNARE 04/23 repeat 3 yrs adenomatous COLONOSCOPY, GI REFERRAL OP may 2002 dr villarreal, miguel except for hemorrhoids. next in may 2007 COLORECTAL CANCER SCREEN; COLON 07/23/2010 diverticulosis EXPLORE PARATHYROID GLANDS N/A 08/25/2016 PARATHYROIDECTOMY performed by Jose Alvarado DO at OR [facility] REMOVE CATARACT, INSERT LENS PROSTH right REMOVE CATARACT, INSERT LENS PROSTH Right 06/18/2021 Right EXTRACAPSULAR CATARACT REMOVAL WITH INTRAOCULAR LENS performed by Gilmer Davalos MD at OR [facility] SINGLE LOBECTOMY, LUNG 1985 right- resected HAMARTOMA THROMBOENDARECTOMY W/PATCH,NECK INCISION 04/04/08 Right carotid endarterectomy with bovine patch angioplasty 04/04/[address] Arshad VASECTOMY 1970 Isolation: Isolation: N/A Procedure: ENDOVASCULAR INFRARENAL AORTA AND OR [id number] PROSTHESIS, INC. RADIOLOGY SUPERVISION & INTERPRETATION ONE ENDOPROSTHESIS OPEN FEMORAL ARTERY EXPOSURE FOR ENDOVASCULAR PROSTHESIS (Bilateral) PERCUTANEOUS ACCESS/CLOSURE FEMORAL ARTERY FOR ENDOGRAFT, INC ULTRASOUND GUIDANCE, UNILATERAL (Bilateral) Type of Anesthesia: General endotracheal anesthesia Block: N/A IV intake: 1100 mL EBL: OR: 50 mL PACU: mL Urine output: OR 300 mL PACU 150 mL IUBC (Ellington): in place Incision location: bilateral groin Dressing location: bandaid R groin, prevena L groin Time of last skin assessment: 1200 Pressure injuries or areas of concern: Lines: Urethral Catheter Coude (Active) Site Assessment Clean;Skin intact 11/27/23 1200 Securement Method Securing device (Describe) 11/27/23 1200 Catheter secured to leg? Yes 11/27/23 1200 Catheter bag below bladder? Yes 11/27/23 1200 IUBC Tubing Disconnected This Shift? No 11/27/23 1200 Collection Container Standard drainage 11/27/23 1200 Number of days: 0 Peripheral Line Lower;Right Wrist 18 Gauge (Active) Status Flushes easily 11/27/23 07 Tubing Changed N/A 11/27/23 0700 Phlebitis Scale 0 11/27/23 07 Infiltration Scale 0 11/27/23 07 Site Description (Other) Without redness, swelling or drainage 11/27/23 07 Site Intervention Flushed 11/27/23 07 Dressing Assessment Dressing clean, dry, and intact;Transparent dressing 11/27/23699 Dressing Intervention Applied 11/27/23699 Number of days: 0 Peripheral Line Left;Posterior Foot 18 Gauge (Active) Number of days: 0 Arterial Line Right Radial (Active) Number of days: 0 Vital Signs: BP: 139/66 (11/27/231214) Temp: 36.3 C (97.3 F) (11/27/231199) Pulse: 59 (11/27/231214) Resp: 15 (11/27/231214) SpO2: 94 % (11/27/231214) etCO2: 24 mmHg (11/27/231199) O2 flow rate: 0 L/MIN (11/27/231214) Glucose (Bedside): 105 (11/27/23699) Time of last pain medication: 1013 Med: dilaudid Time of last antibiotic: 0737 Med: ancef Time of last antiemetic: 1014 Med: zofran PRODUCTION ROUSTABOUT: no Drips: no Neurological: Speech: Clear (11/27/231199) Level of Consciousness: Responds to voice (11/27/231199) RUE Motor Strength: 4-Active movement with some resistance (11/27/231199) RLE Motor Strength: 3-Active movement against gravity (11/27/231199) LUE Motor Strength: 4-Active movement with some resistance (11/27/231199) LLE Motor Strength: 3-Active movement against gravity (11/27/231199) Right Pupil Size (mm): 2 (11/27/231199) Right Pupil Reaction: Reactive (11/27/231199) Left Pupil Size (mm): 2 (11/27/231199) Left Pupil Reaction: Reactive (11/27/231199) Coma Score: 14 (11/27/231199) Respiratory: Respiratory WNL: WNL- within normal limits (11/27/231199) Oxygen therapy/ Mechanical vent Supplemental O2 Delivery: Room Air, None (11/27/231214) O2 flow rate: 0 L/MIN (11/27/231214) Cardiac: Cardiovascular WNL: WNL - within normal limits (11/27/231199) Rhythm: NSR (11/27/23699) Extremities: +Sensation;Warm (11/27/231199) GI: GI WNL: WNL - within normal limits (11/27/231199) : WNL: X - Exceptions to WNL as documented below (11/27/231199) Urine Description: Yellow (11/27/231199) Urethral Catheter Coude (Active) Site Assessment Clean;Skin intact 11/27/231199 Securement Method Securing device (Describe) 11/27/231199 Catheter secured to leg? Yes 11/27/231199 Catheter bag below bladder? Yes 11/27/231199 IUBC Tubing Disconnected This Shift? No 11/27/231199 Collection Container Standard drainage 11/27/231199 Number of days: 0 Due to Void: N/A, ellington in place Integumentary:Integumentary WNL: X - Exceptions to WNL as documented below (11/27/231199) Skin Description: Dry;Warm (11/27/231199) Skin Color: Ecchymosis (scattered) (11/27/231199) Family updated on transfer: no Additional Assessment Information: flat 4 hrs post op until 1500, bedrest today per vascular * Naty Church RN - 11/27/2023 11:05 AM EDT Dual Licensed Skin Assessment completed by Naty Montoya RN and Ginette Neumann RN. The patient is/has a N/A Skin Breakdown (includes non blanchable erythema): No, scattered ecchymosis * Keyona Noguera RN - 11/27/2023 9:07 AM EDT Dual Licensed Skin Assessment completed by Keyona Lopez RN and Kaity BUSTAMANTE. The patient is/has a N/A Skin Breakdown (includes non blanchable erythema): No, scattered ecchymosis * Mariana Amezcua RN - 11/26/2023 7:03 AM EDT Presurgery instructions sent to patient via Fetch MD message. Case is tomorrow, did not call. Pre-operative chart review completed. NO ANESTHESIA EVAL REQUESTED PER CASE DOCUMENTATION. PREOP PATIENT INFORMATION AND EDUCATION: MEDICATION INSTRUCTIONS: The day of surgery/procedure, you may TAKE the following medications with a sip of water up to 2 hours prior to your arrival time: Please follow the pre-operative instructions provided by your vascular surgeon. If you have any questions regarding these instructions please contact your surgeon's office at [phone]. Nothing to eat or drink by mouth after midnight the night before surgery including no food, no gum/hard candy, coffee, tea, other drink, or tobacco product. Continue all of your normal morning medications with a few sips of water on day of surgery unless otherwise instructed. DO NOT TAKE THESE MEDICATIONS ON THE AM OF SURGERY: Lisinopril CONTINUE your ASPIRIN, including morning of surgery. STOP taking the following medications the noted number of days prior to surgery/procedure unless otherwise specified by your surgeon: Please follow surgeon's instructions regarding use of Aspirin, Coumadin, Plavix, Eliquis, and any other blood thinner including NSAIDs (non-steroidal anti- inflammatory drugs, eg, Advil, Ibuprofen, Motrin, Aleve, Naproxen); if you have any questions regarding your anticoagulation therapy please contact your surgeon's clinic. Please verify any proposed stoppage of your anticoagulation therapy with the agent's prescribing provider. 10 days prior to surgery/procedure Stop all Herbal supplements, Green Tea, Turmeric, Melatonin, CBD, THC, etc. Stop all Vitamins (including Vitamin E) 24 hours prior to surgery/procedure DO NOT consume any alcohol. DO NOT use medical marijuana. DO NOT smoke or use tobacco products of any kind after midnight prior to surgery. *Using any of these products may increase your risks of procedural complications. IF IT IS LESS THAN RECOMMENDED STOPPAGE TIME PLEASE STOP AT TIME OF NOTIFICATION. THE DAY BEFORE YOUR SURGERY: -Drink plenty of fluid the day before your surgery. Contact your surgeon's office if you develop any of the following within 2 weeks of surgery: A cold Infection Fever Shingles Chicken pox or exposure to chicken pox Open areas such as scrapes, cuts, damon or other skin conditions Rashes GENERAL INSTRUCTIONS FOR PREPARING FOR SURGERY: BATHING INSTRUCTIONS: Bathe the evening prior to and the morning of surgery/procedure. Cleanse your body using ONLY anti-bacterial soap (eg, Dial, Safeguard) or any specific soap/cleansers and instructions provided by your surgeon (eg, Chlorhexidine). -You should brush your teeth the morning of surgery. Do NOT apply any lotions, powders, sprays, creams, oils, make-up, or deodorants after bathing. No hairspray, or nail liberian on fingers or toes. Day of surgery/procedure do not use tampons. If you wear contacts wear your eyeglasses if available otherwise bring your contact supplies with you to remove them prior to your surgery/procedure. If you wear glasses or dentures, please bring cases in which you can store them during your surgery. Please remove all piercings and jewelry and leave them at home. Wear comfortable and loose clothing. -Please leave all valuables at home. -If you use a CPAP and are staying overnight, please bring your mask and tubing with you to the hospital. -If you use an assistive mobility device (walker, cane, etc), please label it with your name and bring to hospital. -An escort distribution driver is required if you are being discharged the same day of the surgery. You should have a responsible adult over the age of 18 [address] you home. This person should be present with youin the hospital at the time of discharge and for the first 24 hours after the surgery to support your needs. If you are taking a taxi home, you must have your responsible republican accompany you in the taxi ride home at the time of discharge. OR times subject to change. Please check voicemail messages the day/evening before your surgery forany updates. PRE-OP: You will be taken to the pre-op area where your vital signs (blood pressure, pulse and temperature)will be taken. Any preparations that need to be done will be done there. When it is time for your surgery, you will be taken to the operating room. PARENTS OF PEDIATRIC PATIENTS WILL BE ALLOWED TO STAY WITH THEIR CHILDREN UNTIL THEY ARE ESCORTED TO THE OPERATING ROOM OUTPATIENT SURGERY PATIENTS: After your surgery you will be taken to the Same Day Surgery Unit when you are awake and will go home from there. You will get instructions about your home care before you leave. Arrange to have someone drive you home from the hospital. You may not drive for 24 hours after anesthesia. You must havean adult stay with you at home for 24 hours after your operation. This is very important. If you are not able to comply with these guidelines, your Short Stay surgery cannot be done. ADMISSION PATIENTS: After your stay in the recovery area, you will be taken to your room. Your family may visit you in your room based on current visitation policy. If a next day discharge is expected, it is important to make arrangements for a distribution driver to take you home. Please be aware our visitation policies are subject to change Professionals, attendants, caregivers or family members are allowable visitors for patients with intellectual, developmental or cognitive disabilities, communication barriers or behavioral concerns. Because patients' and families' needs vary, they will be taken into account when applying visitation restrictions. [facility]: Contact # [phone] Directions to Surgical Suite in from the Taya Entrance The Surgical Waiting Room can be found in the Lobby of [facility]. Enter through Main Lobby Entrance and the Waiting Room is directly in front of you. Proceed to check in and give them your name. Directions to Surgical Suite from the East Entrance Enter the East entrance and follow the hallway to the J elevator. Take the J elevator up to Level 1. Continue down the long hallway to the main [facility] Lobby. The Surgical Waiting Room will be on your Right. Proceed to check in and give them your Name. Directions to Surgical Suite from the Parking Garage Enter the [facility] lobby and proceed down the galvan to the left. At the end of the galvan, turn right. Continue down the long hallway to the main [facility]. The Surgical Waiting Room will be on your Right. Proceed to check in and give them your Name. Mariana Amezcua, MSN, RN [facility] 11/26/2023 documented in this encounter OR Notes * OR Surgeon - Saul Crenshaw MD - 11/27/2023 10:07 AM EDT [facility] [address] [facility] [id number] OPERATIVE REPORT Name: Nitin Pickett Date: 11/27/2023 Time: 10:07 AM Location: [facility] Service: Vascular Surgery Date of Operation: 11/27/2023 Pre-op Diagnosis: 6 cm abdominal aortic aneurysm. Post-op Diagnosis: Same. Surgeon: Zach Crenshaw MD Assistants: Noel Vargas MD Anesthesia: General endotracheal anesthesia Operation: Repair of abdominal aortic aneurysm with Unity Excluder stent graft. Bilateral aortic catheters. Right common iliac extension cuff Coil embolization of the right internal iliac artery with placement of viabahn stent into the rightexternal iliac artery Ultrasound guided access of the right common femoral artery with percutaneous closure for a 12 Fr or greater device. Findings: Abdominal aortic aneurysm. Slight endoleak at the proximal portion of the graft which could represent 1A or Type 2 endoleak given there are accessory renal arteries in the region. Specimen and Disposition: None Estimated Blood Loss: less than 50 ml Fluids: 900 ml crystalloid Urine output: 300 mL. Drains/Implants: Aortic Stent Graft Complications: None Postoperative Condition: Satisfactory Indications and History: Nitin Pickett presents with an abdominal aortic aneurysm for stent graft repair. Description of Operation: The patient was seen in the Holding Room and the site of surgery properly noted. The patient was identified as Nitin Pickett, and the procedure verified. In the operating room a Time Out was held and the above information confirmed. The patient had a Ellington catheter placed. The abdomen and bothlegs were prepped and draped in the usual sterile fashion. The right common femoral artery was cannulated via the Seldinger technique. Guidewires were inserted into the abdominal aorta using fluoroscopy. On the right side using the Melendez Perclose ProGlide closure device we pre-deployed two devicesplacing sutures into the artery. Specifically, a 18 Algerian sheath was utilized on the right and a 12 Algerian sheath on the left. The patient was fully anticoagulated with heparin. On the left side, a vertical incision was made, the artery was dissected free and controlled with vessel loops. Bilateral aortic catheters were passed. We chose to embolize the right internal iliac artery. The artery was cannulated with a jose catheterwas used to access the right internal iliac artery, this was confirmed with angiography, and a 6 Frhigh flex sheath was placed over a lewis wire. A 12 mm amplatzer plug was deployed and was in perfect position. Next an 11 mm x 10 cm viabahn stent was deployed into the external iliac artery was was post dilated with a 9 mm mustang balloon. Then a 18 Algerian sheath was inserted into the right common femoral artery and advanced into the aorta under fluoroscopic guidance. The main body endoprosthesis, measuring 32mm in aortic diameter x 14.5 mm in limb diameter x 14 cm in length was inserted into the sheath and positioned in the abdominal aorta over a stiff wire. A catheter was positioned in the suprarenal position from the contralateral femoral approach. An aortogram was obtained which revealed position of the renal arteries. The graft was deployed just distal to the renal arteries. The aortic catheter was then retracted and used to access the contralateral limb docking port. Oncethis was achieved, a stiff wire was passed through the docking port. A 12 Algerian sheath was inserted into the contralateral femoral artery and the contralateral limb measuring 16 mm in limb diameter x 16 cm in length was positioned into the docking port. The graft markers were aligned and then the limb was deployed to land above the internal iliac artery. An ipsilateral extension limb (16 mm diameter by 12 cm length) was deployed to land above the internal iliac artery. All junction points and attachment site were fixated with the Coda balloon. A completion arteriogram was obtained which revealed successful exclusion of the aneurysm without evidence of an endoleak. Renal and hypogastric arteries were patent bilaterally. There was good position of the stent graft. Next, the sheath was removed from the right groin and then the pre-deployed sutures of the Perclose device were tied. This showed excellent hemostasis. The wire was removed. A 4-0 Monocryl was used to close the puncture sites. At the conclusion of the procedure there was gooddoppler flow to each foot. The left side sheath was then removed. The left femoral artery were closed after appropriate flushing. There was good flow in the femoral artery. The wound was irrigated with antibiotic solution. Thegroin was closed in three layers of interrupted 3-0 Vicryl and the skin closed with 4-0 Monocryl. Sterile dressings applied. The patient tolerated the procedure well. Attestation: I was present and scrubbed for the entire procedure Vascular quality Initiative - Procedure Documentation MAXIMUM AAA DIAMETER: See pre-op diagnosis above for measurement AORTIC NECK LENGTH: (From lowest renal to where diameter expands greater than 10%): 10 mm AORTIC NECK DIAMETER (largest portion of the seal zone): 23.5 mm AORTA-NECK ANGLE (Between axis of suprarenal aorta and aneurysm neck): Less than 45 degrees NECK-AAA ANGLE (Between axis of aneurysm neck and proximal portion of the aneurysm sac): Less than 45 degrees documented in this encounter Miscellaneous Notes * Ancillary Progress Note - Loreto Hurt RN - 11/28/2023 3:03 PM EDT CARE MANAGEMENT - ADULT INITIAL SCREENING [address] [id number] Name: Nitin Pickett Location: [facility] H857/[id number] Date: 11/28/2023 Time: 3:03 PM Discussed patient with the interdisciplinary care team. This Destination Coordinator performed a chart reviewto complete admission screen and assessed needs for transition planning. The care analyst role and services were explained and emotional support was provided. Chief Complaint: No chief complaint on file. Prior Living Arrangements What was your living situation prior to admission/observation?: Independently (11/28/23 1502) History of falling: Yes (11/28/23 0730) Prior Level of Functioning Describe the patient's ability prior to admission/observation to perform ADLs: Performs independently (11/27/23 1334) Describe the patient's mobility status prior to admission: Patient ambulates independently (11/27/23 1334) Patient uses assistive device: No (11/27/23 133) Caregiver Information Patient Contacts Name Relation Home Work Mobile IMAN JOHNSON Adult Child [phone] ALEXUS HUSSEIN Adult Child [phone] Risk Stratification/Psychosocial/Care Gaps Readmission Risk Score: 14.26 (11/28/23 1201) AM-PAC Score With Stairs : 18 (11/28/23 0800) Prior to Admission Services Outpatient Destination Coordinator: No care 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 * Pt Handout (on AVS) - Grace Schroeder L, RN - 11/28/2023 2:14 PM EDT [id number] Oxycodone Brand Name(s): Oxaydo, Oxycontin, Roxicodone, Roxybond, Xtampza ER, Combunox (as a combination product containing Ibuprofen, Oxycodone), Narvox (as a combination product containing Acetaminophen, Oxycodone), Oxycet (as a combination product containing Acetaminophen, Oxycodone), Percocet (as a combination product containing Acetaminophen, Oxycodone), Percodan (as a combination product containing Aspirin, Oxycodone), Roxicet (as a combination product containing Acetaminophen, Oxycodone), Roxilox (as a combination product containing Acetaminophen, Oxycodone), Roxiprin (as a combination product containing Aspirin, Oxycodone), Targiniq ER (as a combination product containing naloxone, oxycodone), Troxyca ER (as a combination product containing Naltrexone, Oxycodone), Tylox (as a combination product containing Acetaminophen, Oxycodone), Xartemis XR (as a combination product containing Acetaminophen, Oxycodone); also available generically IMPORTANT WARNING: Oxycodone may be habit-forming. Take oxycodone exactly as directed. Do not take more of it, take itmore often, or take it in a different way than directed by your doctor. While taking oxycodone, discuss with your healthcare provider your pain treatment goals, length of treatment, and other ways tomanage your pain. Tell your doctor if you or anyone in your family drinks or has ever drunk large amounts of alcohol, uses or has ever used street drugs, or has overused prescription medications, or has had an overdose, or if you have or have ever had depression or another mental illness. There is a greater risk that you will overuse oxycodone if you have or have ever had any of these conditions.Talk to your healthcare provider immediately and ask for guidance if you think that you have an opioid addiction or call the U.[place]. Substance Abuse and Mental Health Services Administration (SAMHSA) National Helpline at 3-432-410-EAGX. Oxycodone may cause serious or life-threatening breathing problems, especially during the first 24 to 72 hours of your treatment and any time your dose is increased. Your doctor will monitor you carefully during your treatment. Tell your doctor if you have or have ever had slowed breathing or asthma. Your doctor will probably tell you not to take oxycodone. Also tell your doctor if you have or have ever had lung disease such as chronic obstructive pulmonary disease (COPD; a group of diseases that affect the lungs and airways), a head injury a brain tumor, or any condition that increases the amount of pressure in your brain. The risk that you will develop breathing problems may be higher if you are an older adult or are weak or malnourished due to disease. If you experience any of the following symptoms, call your doctor immediately or get emergency medical treatment: slowed breathing, long pauses between breaths, or shortness of breath. Do not allow anyone else to take your medication. Oxycodone may harm or cause to other peoplewho take your medication, especially children. Keep oxycodone in a safe place so that no one else can take it accidentally or on purpose. Be especially careful to keep oxycodone out of the reach of children. Keep track of how many capsules, tablets, or oral solution is left so you will know if any medication is missing. Taking certain other medications with oxycodone may increase the risk of serious or life-threatening breathing problems, sedation, or coma. Tell your doctor and pharmacist what other prescription andnonprescription medications, vitamins, nutritional supplements, and herbal products you are taking or plan to take. Your doctor may need to change the doses of your medication and will monitor you carefully. If you take oxycodone with other medications and you develop any of the following symptoms,call your doctor immediately or seek emergency medical care: unusual dizziness, lightheadedness, extreme sleepiness, slowed or difficult breathing, or unresponsiveness. Be sure that your caregiver orfamily members know which symptoms may be serious so they can call the doctor or emergency medical care if you are unable to seek treatment on your own. Drinking alcohol, taking prescription or nonprescription medications that contain alcohol, or usingstreet drugs during your treatment with oxycodone increases the risk that you will experience serious, life-threatening side effects. Do not drink alcohol, take prescription or nonprescription medications that contain alcohol, or use street drugs during your treatment. If you are taking the oxycodone extended-release tablets, swallow them whole; do not chew, break, divide, crush, or dissolve them. Do not presoak, lick or otherwise wet the tablet prior to placing inthe mouth. Swallow each tablet right after you put it in your mouth. If you swallow broken, chewed,crushed, or dissolved extended-release tablets, you may receive too much oxycodone at once instead of slowly over 12 hours. This may cause serious problems, including overdose and . Oxycodone comes as a regular solution (liquid) and as a concentrated solution that contains more oxycodone in each milliliter of solution. Be sure that you know whether your doctor has prescribed theregular or concentrated solution and the dose in milliliters that your doctor has prescribed. Use the dosing cup, oral syringe, or dropper provided with your medication to carefully measure the number of milliliters of solution that your doctor prescribed. Read the directions that come with your medication carefully and ask your doctor or pharmacist if you have any questions about how to measure your dose or how much medication you should take. You may experience serious or life threatening side effects if you take an oxycodone solution with a different concentration or if you take a different amount of medication than prescribed by your doctor. Store oxycodone in a safe place so that no one else can take it accidentally or on purpose. Be especially careful to keep oxycodone out of the reach of children. Keep track of how many tablets or capsules, or how much liquid is left so you will know if any medication is missing. Dispose of unwantedcapsules, tablets, extended-release tablets, extended-release capsules, and liquid properly according to instructions. (See STORAGE and DISPOSAL). Tell your doctor if you are or plan to become . If you take oxycodone regularly during your , your baby may experience life- threatening withdrawal symptoms after . Tellyour baby's doctor right away if your baby experiences any of the following symptoms: irritability, hyperactivity, abnormal sleep, high-pitched cry, uncontrollable shaking of a part of the body, vomiting, diarrhea, or failure to gain weight. Talk to your doctor about the risks of taking oxycodone. Your doctor or pharmacist will give you the [employer]'s patient information sheet (Medication Guide) when you begin your treatment with oxycodone and each time you fill your prescription. Read theinformation carefully and ask your doctor or pharmacist if you have any questions. You can also visit the Food and Drug Administration (FDA) website (https://www.fda.gov/Drugs/DrugSafety/saq717056.htm) or the [employer]'s website to obtain the Medication Guide. WHY is this medicine prescribed? Oxycodone immediate-release tablets, capsules, and oral solution are used to relieve severe, acute pain (pain that begins suddenly, has a specific cause, and is expected to go away when the cause of the pain is healed) in people who are expected to need an opioid pain medication and who cannot be treated with other pain medications. Oxycodone extended-release tablets and extended-release capsulesare used to relieve severe pain in people who are expected to need pain medication around the clockfor a long time and who cannot be treated with other medications. Oxycodone extended-release tablets and extended-release capsules should not be used to treat pain that can be controlled by medication that is taken as needed. Oxycodone concentrated solution should only be used to treat people who are tolerant (used to the effects of the medication) to opioid medications because they have taken this type of medication for at least one week. Oxycodone is in a class of medications called opiate (narcotic) analgesics. It works by changing the way the brain and nervous system respond to pain. Oxycodone is also available in combination with acetaminophen (Oxycet, Percocet, others) and aspirin (Percodan). This monograph only includes information about the use of oxycodone alone. If you are taking an oxycodone combination product, be sure to read information about all the ingredients in the product you are taking and ask your doctor or pharmacist for more information. HOW should this medicine be used? Oxycodone comes as a solution (liquid), a concentrated solution, a tablet, a capsule, an extended-release (long-acting) tablet (Oxycontin), and an extended- release capsule (Xtampza ER) to take by mouth. The solution, concentrated solution, tablet, and capsule are taken usually with or without food every 4 to 6 hours, either as needed for pain or as regularly scheduled medications. The extended-release tablets (Oxycontin) are taken every 12 hours with or without food. The extended-release capsules (Xtampza ER) are taken every 12 hours with food; eat the same amount of food with each dose. Follow the directions on your prescription label carefully, and ask your doctor or pharmacist to explainany part you do not understand. Take oxycodone exactly as directed. If you are taking the extended-release tablets (Oxycontin), swallow the tablets one at a time with plenty of water. Swallow the tablet or right after putting it in your mouth. Do not presoak, wet, orlick the tablets before you put them in your mouth. Do not chew or crush extended-release tablets. If you have trouble swallowing extended-release capsules (Xtampza ER), you can carefully open the capsule and sprinkle the contents on soft foods such as applesauce, pudding, yogurt, ice cream, or jam, then consume the mixture immediately. Dispose of the empty capsule shells right away by flushing them down a toilet. Do not store the mixture for future use. If you have a feeding tube, the extended-release capsule contents can be poured into the tube. Ask your doctor how you should take the medication and follow these directions carefully. Your doctor may adjust your dose of oxycodone during your treatment, depending on how well your pain is controlled and on the side effects that you experience. Talk to your doctor about how you are feeling during your treatment with oxycodone. Tell your doctor if you feel that your pain is not controlled or if your pain increases, becomes worse, or if you have new pain or an increased sensitivityto pain during your treatment with oxycodone. Do not take more of it or take it more often than prescribed by your doctor. Do not stop taking oxycodone without talking to your doctor. If you stop taking oxycodone suddenly,you may experience withdrawal symptoms such as restlessness, watery eyes, runny nose, sneezing, yawning, sweating, chills, muscle or joint aches or pains, weakness, irritability, anxiety, depression,difficulty falling asleep or staying asleep, cramps, nausea, vomiting, diarrhea, loss of appetite, fast heartbeat, and fast breathing. Your doctor will probably decrease your dose gradually. Are there OTHER USES for this medicine? This medication may be prescribed for other uses; ask your doctor or pharmacist for more information. What SPECIAL PRECAUTIONS should I follow? Before taking oxycodone, tell your doctor and pharmacist if you are allergic to oxycodone, any other medications, or any of the ingredients in the oxycodone product you plan to take. Ask your pharmacist or check the Medication Guide for a list of the ingredients. tell your doctor or pharmacist if you are taking the following medications or have stopped taking them within the past two weeks: isocarboxazid (Marplan), linezolid (Zyvox), methylene blue, phenelzine (Nardil), selegiline (Emsam, Zelapar), or tranylcypromine (Parnate). The following nonprescription or herbal products may interact with oxycodone: Nanci's wort and tryptophan. Be sure to let your doctor and pharmacist know that you are taking these medications before you start taking oxycodone. Do not start these medications while taking oxycodone without discussing it with your healthcare provider. tell your doctor if you have or have ever had any of the conditions mentioned in the IMPORTANT WARNING section, a blockage or narrowing of your stomach or intestines, or paralytic ileus (conditionin which digested food does not move through the intestines). Your doctor may tell you not to take oxycodone. Also tell your doctor if you have or have ever had low blood pressure; seizures; adrenal insufficiency (condition in which the adrenal glands do not produce enough of certain hormones needed for important body functions); seizures; urethral stricture (blockage of the tube that allows urine to leave the body), problems urinating; or heart, kidney, liver, pancreas, thyroid, or gall bladder disease. If you will be taking the extended-release tablets or extended-release capsules, also tell your doctor if you have or have ever had difficulty swallowing, diverticulitis (condition in which small pouches form in the intestines and become swollen and infected), colon cancer (cancer that begins inthe large intestine), or esophageal cancer (cancer that begins in the tube that connects the mouth and stomach). tell your doctor if you are . You should not breastfeed while you are taking oxycodone. Oxycodone can cause shallow breathing, difficulty or noisy breathing, confusion, more than usual sleepiness, trouble , or limpness in breastfed infants. you should know that this medication may decrease fertility in men and women. Talk to your doctor about the risks of taking oxycodone. if you are having surgery, including dental surgery, tell the doctor or dentist that you are taking oxycodone. you should know that this medication may make you drowsy. Do not drive a car, operate heavy machinery, or participate in any other possibly dangerous activities until you know how this medication affects you. you should know that oxycodone may cause dizziness, lightheadedness, and fainting when you get up too quickly from a lying position. To help avoid this problem, get out of bed slowly, resting yourfeet on the floor for a few minutes before standing up. you should know that oxycodone may cause constipation. Talk to your doctor about changing your diet or using other medications to prevent or treat constipation while you are taking oxycodone. What SPECIAL DIETARY instructions should I follow? Unless your doctor tells you otherwise, continue your normal diet. What should I do IF I FORGET to take a dose? If you are taking oxycodone on a regular schedule, take the missed dose as soon as you remember it.However, if it is almost time for the next dose, skip the missed dose and continue your regular dosing schedule. Do not take a double dose to make up for a missed one. Do not take more than one dose of the extended- release tablets or capsules in 12 hours. What SIDE EFFECTS can this medicine cause? Oxycodone may cause side effects. Tell your doctor if any of these symptoms, are severe or do not go away: dry mouth stomach pain drowsiness flushing headache mood changes Some side effects can be serious. If you experience any of these symptoms or those mentioned in the IMPORTANT WARNING section, call your doctor immediately or get emergency medical help: changes in heartbeat agitation, hallucinations (seeing things or hearing voices that do not exist), fever, sweating, confusion, fast heartbeat, shivering, severe muscle stiffness or twitching, loss of coordination, ordiarrhea nausea, vomiting, loss of appetite, weakness, or dizziness inability to get or keep an erection irregular menstruation decreased sexual desire chest pain rash; itching; hives; hoarseness; difficulty breathing or swallowing; or swelling of the face, mouth, tongue, lips, or throat swelling of the hands, feet, ankles, or lower legs seizures extreme drowsiness If you experience a serious side effect, you or your doctor may send a report to the Food and Drug Administration's (FDA) MedWatch Adverse Event Reporting program online (https://www.fda.gov/Safety/MedWatch) or by phone ( ). Oxycodone may cause other side effects. Call your doctor if you have any unusual problems while youare taking this medication. What should I know about STORAGE and DISPOSAL of this medication? Keep this medication in the container it came in, tightly closed, and out of reach of children, andin a location that is not easily accessible by others, including visitors to the home. Store it at room temperature and away from light and excess heat and moisture (not in the bathroom). You must immediately dispose of any medication that is outdated or no longer needed through a medicine take-back program. If you do not have a take-back program nearby or one that you can access promptly, flush any medication that is outdated or no longer needed down the toilet so that others will not take it.Talk to your pharmacist about the proper disposal of your medication. It is important to keep all medication out of sight and reach of children as many containers (such as weekly pill minders and those for eye drops, creams, patches, and inhalers) are not child-resistant and young children can open them easily. To protect young children from poisoning, always lock safety caps and immediately place the medication in a safe location - one that is up and away and out of their sight and reach. https://www.upandaway.org What should I do in case of OVERDOSE? In case of overdose, call the poison control helpline at . Information is also available online at https://www.poisonhelp.org/help. If the victim has collapsed, had a seizure, has trouble breathing, or can't be awakened, immediately call emergency services at 039. While taking oxycodone, you should talk to your doctor about having a rescue medication called naloxone readily available (e.g., home, office). Naloxone is used to reverse the life-threatening effects of an overdose. It works by blocking the effects of opiates to relieve dangerous symptoms caused by high levels of opiates in the blood. Your doctor may also prescribe you naloxone if you are livingin a household where there are small children or someone who has abused street or prescription drugs. You should make sure that you and your family members, caregivers, or the people who spend time with you know how to recognize an overdose, how to use naloxone, and what to do until emergency medical help arrives. Your doctor or pharmacist will show you and your family members how to use the medication. Ask your pharmacist for the instructions or visit the [employer]'s website to get the instructions. If symptoms of an overdose occur, a caregiver or family member should give the first dose of naloxone, call 911 immediately, and stay with you and watch you closely until emergency medical help arrives.Your symptoms may return within a few minutes after you receive naloxone. If your symptoms return, the person should give you another dose of naloxone. Additional doses may be given every 2 to 3 minutes, if symptoms return before medical help arrives. Symptoms of overdose may include the following: difficulty breathing slowed or shallow breathing excessive sleepiness limp or weak muscles narrowing or widening of the pupils (dark [place] in the eye) cold, clammy skin unable to respond or wake up slowed heartbeat unusual snoring What OTHER INFORMATION should I know? Keep all appointments with your doctor. Your doctor may order certain lab tests to check your body's response to oxycodone. Before having any laboratory test (especially those that involve methylene blue), tell your doctor and the laboratory personnel that you are taking oxycodone. This prescription is not refillable. If you continue to have pain after you finish the oxycodone, call your doctor. It is important for you to keep a written list of all of the prescription and nonprescription ([id number]-tioxzft) medicines you are taking, as well as any products such as vitamins, minerals, or otherdietary supplements. You should bring this list with you each time you visit a doctor or if you areadmitted to a hospital. It is also important information to carry with you in case of emergencies. This report on medications is for your information only, and is not considered individual patient advice. Because of the changing nature of drug information, please consult your physician or pharmacist about specific clinical use. The [employer] represents that the information provided hereunder was formulated with a reasonable standard of care, and in conformity with professional standards in the field. [employer] makes no representations or warranties, express or implied, including, but not limited to, any implied warranty of merchantability and/or fitness for a particular purpose, with respect to such information and specifically disclaims all such warranties. Users are advised that decisions regarding drug therapy are complex medical decisions requiring the independent, informed decision of an appropriate health director career services, and the information is provided for informational purposes only. The entire monograph for a drug should be reviewed for a thorough understanding of the drug's actions, uses and side effects. The [employer] does not endorse or recommend the use of any drug.The information is not a substitute for medical care. [facility] Patient Medication Information?. Copyright, 2023. [employer], [address] [place] [address], [facility] [address], [place], [place]. All Rights Reserved. Duplication for commercial use must be authorized by [facility]. Selected Revisions: May 01, 2023. [facility] Patient Medication Information?. Copyright, 2023 * Pt Handout (on AVS) - Grace Schroeder RN - 11/28/2023 2:14 PM EDT [id number] Tamsulosin Brand Name(s): Flomax, Phyllis (as a combination product containing Dutasteride, Tamsulosin); also available generically WHY is this medicine prescribed? Tamsulosin is used in men to treat the symptoms of an enlarged prostate (benign prostatic hyperplasia or BPH) which include difficulty urinating (hesitation, dribbling, weak stream, and incomplete bladder emptying), painful urination, and urinary frequency and urgency. Tamsulosin is in a class of medications called alpha blockers. It works by relaxing the muscles in the prostate and bladder so that urine can flow easily. HOW should this medicine be used? Tamsulosin comes as a capsule to take by mouth. It is usually taken once a day. Take tamsulosin 30 minutes after the same meal each day. Follow the directions on your prescription label carefully, and ask your doctor or pharmacist to explain any part you do not understand. Take tamsulosin exactly as directed. Do not take more or less of it or take it more often than prescribed by your doctor. Swallow tamsulosin capsules whole; do not split, chew, crush, or open them. Your doctor will probably start you on a low dose of tamsulosin and may increase your dose after 2 to 4 weeks. Tamsulosin may help control your condition, but it will not cure it. Continue to take tamsulosin even if you feel well. Do not stop taking tamsulosin without talking to your doctor. Are there OTHER USES for this medicine? This medication may be prescribed for other uses; ask your doctor or pharmacist for more information. What SPECIAL PRECAUTIONS should I follow? Before taking tamsulosin, tell your doctor and pharmacist if you are allergic to tamsulosin, sulfa medications, or any other medications. tell your doctor and pharmacist what prescription and nonprescription medications, vitamins, nutritional supplements and herbal products you are taking or plan to take. Be sure to mention any of the following: other alpha alexsandra medications such as alfuzosin (Uroxatral), doxazosin (Cardura), prazosin (Minipress), and terazosin (Hytrin); anticoagulants ('blood thinners') such as warfarin (Coumadin); cimetidine (Tagamet); and medications for erectile dysfunction (ED) such as sildenafil (Viagra), tadalafil (Cialis), or vardenafil (Levitra); Your doctor may need to change the doses of your medications or monitor you more carefully for side effects. tell your doctor if you have or have ever had prostate cancer or liver or kidney disease. you should know that tamsulosin is only for use in men. Women should not take tamsulosin, especially if they are or could become or are breast-feeding. If a woman takestamsulosin, she should call her doctor. if you are having surgery, including dental surgery, tell the doctor or dentist that you are taking tamsulosin. If you need to have eye surgery at any time during or after your treatment, be sure to tell your doctor that you are taking or have taken tamsulosin. you should know that this medication may make you drowsy or dizzy. Do not drive a car, operate machinery, or perform dangerous tasks until you know how this medication affects you. you should know that tamsulosin may cause dizziness, lightheadedness, a spinning sensation, and fainting, especially when you get up too quickly from a lying position. This is more common when youfirst start taking tamsulosin or after your dose is increased. To help avoid this problem, get out of bed slowly, resting your feet on the floor for a few minutes before standing up. Call your doctorif these symptoms are severe or do not go away. What should I do IF I FORGET to take a dose? Take the missed dose as soon as you remember it. However, if it is almost time for the next dose, skip the missed dose and continue your regular dosing schedule. Do not take a double dose to make up for a missed one. If you interrupt your treatment for several days or longer, call your doctor before restarting the medication, especially if you take more than one capsule of tamsulosin a day. What SIDE EFFECTS can this medicine cause? Tamsulosin may cause side effects. Tell your doctor if any of these symptoms or those in the SPECIAL PRECAUTIONS section are severe or do not go away: sleepiness difficulty falling asleep or staying asleep weakness back pain diarrhea runny or stuffy nose pain or pressure in the face sore throat, cough, fever, chills, or other signs of infection blurred vision difficulty ejaculating Some side effects can be serious. If you experience any of the following symptoms, call your doctorimmediately: painful erection of the penis that lasts for hours rash itching hives swelling of the eyes, face, tongue, lips, throat, arms, hands, feet, ankles, or lower legs What should I know about STORAGE and DISPOSAL of this medication? Keep this medication in the container it came in, tightly closed, and out of reach of children. Store it at room temperature and away from excess heat and moisture (not in the bathroom). It is important to keep all medication out of sight and reach of children as many containers (such as weekly pill minders and those for eye drops, creams, patches, and inhalers) are not child-resistant and young children can open them easily. To protect young children from poisoning, always lock safety caps and immediately place the medication in a safe location - one that is up and away and out of their sight and reach. https://www.[employer]org Unneeded medications should be disposed of in special ways to ensure that pets, children, and otherpeople cannot consume them. However, you should not flush this medication down the toilet. Instead,the best way to dispose of your medication is through a medicine take-back program. Talk to your pharmacist or contact your local garbage/recycling department to learn about take-back programs in your community. See the FDA's Safe Disposal of Medicines website (https://goo.gl/c4Rm4p) for more information if you do not have access to a take-back program. What should I do in case of OVERDOSE? In case of overdose, call the poison control helpline at . Information is also available online at https://www.poisonhelp.org/help. If the victim has collapsed, had a seizure, has trouble breathing, or can't be awakened, immediately call emergency services at 911. Symptoms of overdose may include: dizziness fainting blurred vision upset stomach headache What OTHER INFORMATION should I know? Keep all appointments with your doctor. Do not let anyone else take your medication. Ask your pharmacist any questions you have about refilling your prescription. It is important for you to keep a written list of all of the prescription and nonprescription (fjmn-ars-idehyaj) medicines you are taking, as well as any products such as vitamins, minerals, or otherdietary supplements. You should bring this list with you each time you visit a doctor or if you areadmitted to a hospital. It is also important information to carry with you in case of emergencies. This report on medications is for your information only, and is not considered individual patient advice. Because of the changing nature of drug information, please consult your physician or pharmacist about specific clinical use. The [employer] represents that the information provided hereunder was formulated with a reasonable standard of care, and in conformity with professional standards in the field. The [employer] makes no representations or warranties, express or implied, including, but not limited to, any implied warranty of merchantability and/or fitness for a particular purpose, with respect to such information and specifically disclaims all such warranties. Users are advised that decisions regarding drug therapy are complex medical decisions requiring the independent, informed decision of an appropriate health director career services, and the information is provided for informational purposes only. The entire monograph for a drug should be reviewed for a thorough understanding of the drug's actions, uses and side effects. The [employer] does not endorse or recommend the use of any drug.The information is not a substitute for medical care. [facility] Patient Medication Information?. Copyright, 2023. [employer], [address], [address], [place], [place]. All Rights Reserved. Duplication for commercial use must be authorized by [facility]. Selected Revisions: March 02, 2017. [facility] Patient Medication Information?. Copyright, 2023 * Pt Handout (on AVS) - Marilyn Garlandzohra Hyman, [facility] - 11/28/2023 11:01 AM EDT [id number] Clopidogrel Brand Name(s): Plavix; also available generically IMPORTANT WARNING: Clopidogrel must be changed to an active form in your body so that it can treat your condition. Some people do not change clopidogrel to its active form in the body as well as other people. Because the medication does not work as well in these people, they may be at a higher risk of having a heart attack or stroke. There are tests available to identify people who have trouble changing clopidogrelto an active form. Talk to your doctor about whether you should be tested. If you are found to havedifficulty converting clopidogrel to its active form, your doctor may change your dose of clopidogrel or tell you not to take clopidogrel. Your doctor or pharmacist will give you the [employer]'s patient information sheet (Medication Guide) when you begin treatment with clopidogrel and each time you refill your prescription. Read the information carefully and ask your doctor or pharmacist if you have any questions. You can also visit the Food and Drug Administration (FDA) website (https://www.fda.gov/Drugs/DrugSafety/taf263236.htm) or the [employer]'s website to obtain the Medication Guide. Talk to your doctor about the risks of taking clopidogrel. WHY is this medicine prescribed? Clopidogrel is used alone or with aspirin to prevent serious or life-threatening problems with the heart and blood vessels in people who have had a stroke, heart attack, or severe chest pain. This includes people who have percutaneous coronary intervention (PCI; angioplasty; a type of heart surgery) that may involve inserting coronary stents (metal tubes surgically placed in clogged blood vesselsto improve blood flow) or who have coronary artery bypass grafting (CABG; a type of heart surgery).Clopidogrel is also used to prevent serious or life-threatening problems with the heart and blood vessels in people who have peripheral arterial disease (poor circulation in the blood vessels that supply blood to the legs). Clopidogrel is in a class of medications called antiplatelet medications. It works by preventing platelets (a type of blood cell) from collecting and forming clots that may cause a heart attack or stroke. HOW should this medicine be used? Clopidogrel comes as a tablet to take by mouth. It is usually taken once a day with or without food. Take clopidogrel at around the same time every day. Follow the directions on your prescription label carefully, and ask your doctor or pharmacist to explain any part you do not understand. Take clopidogrel exactly as directed. Do not take more or less of it or take it more often than prescribed byyour doctor. Clopidogrel will help prevent serious problems with your heart and blood vessels only as long as you take the medication. Continue to take clopidogrel even if you feel well. Do not stop taking clopidogrel without talking to your doctor. If you stop taking clopidogrel, there is a higher risk that you may have a heart attack or stroke. If you have a stent, there is also a higher risk that you coulddevelop a blood clot in the stent if you stop taking clopidogrel too soon. Are there OTHER USES for this medicine? Clopidogrel is also sometimes used to prevent blood clots in people with atrial fibrillation (a condition in which the heart beats irregularly). Talk to your doctor about the possible risks of using this medication for your condition. This medication may be prescribed for other uses; ask your doctor or pharmacist for more information. What SPECIAL PRECAUTIONS should I follow? Before taking clopidogrel, tell your doctor and pharmacist if you are allergic to clopidogrel, prasugrel (Effient), ticlopidine, any other medications, or any ingredient in clopidogrel tablets. Ask your pharmacist or checkthe Medication Guide for a list of the ingredients. tell your doctor and pharmacist what other prescription and nonprescription medications, vitamins, nutritional supplements, and herbal products you are taking or plan to take while taking clopidogrel. Your doctor may need to change the doses of your medications or monitor you carefully for side effects. . The following nonprescription products may interact with clopidogrel: omeprazole (Prilosec, Prilosec OTC, Zegerid); esomeprazole (Nexium); aspirin and other nonsteroidal anti-inflammatory drugs (NSAIDs) such as ibuprofen (Advil, Motrin) and naproxen (Aleve, Naprosyn). Be sure to let your doctor and pharmacist know that you are taking these medications before you start taking clopidogrel. Do not start any of these medications while taking clopidogrel without discussing with your healthcare provider. tell your doctor if you have bleeding ulcers (sores in the lining of the stomach or small intestine that are bleeding), bleeding in the brain, or any other condition that causes severe bleeding. Your doctor may tell you that you should not take clopidogrel. tell your doctor if you have recently been injured and if you have or have ever had liver or kidney disease or any condition that may cause bleeding, including stomach problems such as ulcers. tell your doctor if you are , plan to become , or are breast- feeding. If you become while taking clopidogrel, call your doctor. if you are having surgery, including dental surgery, tell the doctor or dentist that you are taking clopidogrel. Your doctor may tell you to stop taking clopidogrel at least 5 days prior to your surgery to avoid excessive bleeding during surgery. Your doctor will tell you when to start taking clopidogrel again after your surgery. you should know that you may bleed more easily or for a longer time than usual while you are taking clopidogrel. Be careful not to cut or hurt yourself while you are taking clopidogrel. What SPECIAL DIETARY instructions should I follow? Unless your doctor tells you otherwise, continue your normal diet. What should I do IF I FORGET to take a dose? Take the missed dose as soon as you remember it. However, if it is almost time for the next dose, skip the missed dose and continue your regular dosing schedule. Do not take a double dose to make up for a missed one. What SIDE EFFECTS can this medicine cause? Clopidogrel may cause side effects. Tell your doctor if any of these symptoms are severe or do not go away: excessive tiredness headache dizziness nausea vomiting stomach pain diarrhea nosebleed Some side effects can be serious. If you experience any of the following symptoms, call your doctor immediately: hives rash itching difficulty breathing or swallowing swelling of the face, throat, tongue, lips, eyes, hands, feet, ankles, or lower legs hoarseness black and tarry stools red blood in stools bloody vomit vomit that looks like coffee grounds unusual bleeding or bruising pink or brown urine slow or difficult speech weakness or numbness of an arm or a leg changes in vision fever shortness of breath fast heartbeat pale skin purple patches or bleeding under the skin confusion yellowing of the skin or eyes seizures Clopidogrel may cause other side effects. Call your doctor if you have any unusual problems while taking this medication. If you experience a serious side effect, you or your doctor may send a report to the Food and Drug Administration's (FDA) MedWatch Adverse Event Reporting program online (https://www.fda.gov/Safety/MedWatch) or by phone ( ). What should I know about STORAGE and DISPOSAL of this medication? Keep this medication in the container it came in, tightly closed, and out of reach of children. Store it at room temperature and away from excess heat and moisture (not in the bathroom). Unneeded medications should be disposed of in special ways to ensure that pets, children, and otherpeople cannot consume them. However, you should not flush this medication down the toilet. Instead,the best way to dispose of your medication is through a medicine take-back program. Talk to your pharmacist or contact your local garbage/recycling department to learn about take-back programs in your community. See the FDA's Safe Disposal of Medicines website (https://goo.gl/c4Rm4p) for more information if you do not have access to a take-back program. It is important to keep all medication out of sight and reach of children as many containers (such as weekly pill minders and those for eye drops, creams, patches, and inhalers) are not child-resistant and young children can open them easily. To protect young children from poisoning, always lock safety caps and immediately place the medication in a safe location - one that is up and away and out of their sight and reach. https://www.upandaway.org What should I do in case of OVERDOSE? In case of overdose, call the poison control helpline at . Information is also available online at https://www.poisonhelp.org/help. If the victim has collapsed, had a seizure, has trouble breathing, or can't be awakened, immediately call emergency services at 911. Symptoms of overdose may include the following: unusual bruising or bleeding What OTHER INFORMATION should I know? Keep all appointments with your doctor. Do not let anyone else take your medication. Ask your pharmacist any questions you have about refilling your prescription. It is important for you to keep a written list of all of the prescription and nonprescription (jdtb-aoj-oleeldh) medicines you are taking, as well as any products such as vitamins, minerals, or otherdietary supplements. You should bring this list with you each time you visit a doctor or if you areadmitted to a hospital. It is also important information to carry with you in case of emergencies. This report on medications is for your information only, and is not considered individual patient advice. Because of the changing nature of drug information, please consult your physician or pharmacist about specific clinical use. The [employer] represents that the information provided hereunder was formulated with a reasonable standard of care, and in conformity with professional standards in the field. [employer] makes no representations or warranties, express or implied, including, but not limited to, any implied warranty of merchantability and/or fitness for a particular purpose, with respect to such information and specifically disclaims all such warranties. Users are advised that decisions regarding drug therapy are complex medical decisions requiring the independent, informed decision of an appropriate health director career services, and the information is provided for informational purposes only. The entire monograph for a drug should be reviewed for a thorough understanding of the drug's actions, uses and side effects. [employer] does not endorse or recommend the use of any drug.The information is not a substitute for medical care. [facility] Patient Medication Information?. Copyright, 2023. [employer], [address], [address], [place], [place]. All Rights Reserved. Duplication for commercial use must be authorized by [facility]. Selected Revisions: August 06, 2023. [facility] Patient Medication Information?. Copyright, 2023 * Pt Handout (on AVS) - Ramos Best RN - 11/28/2023 2:39 AM EDT Images from the original note were not included. [id number] Understanding Abdominal Aortic Aneurysm You may have been told that you have an aneurysm. This is when a weakened part of a blood vessel expands like a balloon. An aneurysm in the main blood vessel in your stomach area is called an abdominal aortic aneurysm (AAA). What is AAA? An aneurysm happens when a weakened part of the aorta wall stretches and expands. The aorta is the large artery that carries oxygenated blood from the heart to the rest of the body.With AAA, part of the aorta weakens and stretches. If an aneurysm gets large enough, it may burst. This is very serious, and usually fatal. How is an aneurysm found? AAA usually develops slowly over time and causes no symptoms. It's often found when tests (such as an X-ray, MRI, or CT scan) are done for an unrelated problem. To confirm the presence of an AAA tests such as abdominal ultrasound, abdominal and pelvic CT scan or angiography are done. Who develops AAA? These things increase your chances of having AAA: AAA runs in your family Your age. AAA is more likely as you get older. Men are more likely than women to have AAA Smoking High blood pressure High cholesterol level. This is a buildup of fat and other materials in the blood. Injury, such as a car accident Men ages 65 to 75 who have ever smoked should have a 1-time ultrasound screening for AAA. If you are a male age 65 to 75 and have never smoked, your healthcare provider may advise screening based on other risk factors such as your health history or family history. What can be done? Surgery can be done to remove an aneurysm. Or you may have a less invasive procedure called endovascular stent grafting. This uses a catheter to place a metal mesh tube called a stent into the weakened part of the aorta. The stent acts as scaffolding to reinforce the artery stewart. Your healthcare provider will weigh the chances that the aneurysm will burst against the risks of treatment. A small and slow growing aneurysm is monitored with ultrasound and CT scans every 6 to 12 months. If it reaches a certain size, begins leaking or grows quickly, you may need surgery to replace that section of your aorta. Last Reviewed Date: 2023 00:00:00 [id number] [employer]. All rights reserved. This information is not intended as a substitute for professional medical care. Always follow your healthcare professional's instructions. * Care Plan - Poornima Anglin RN - 11/28/2023 1:14 AM EDT Clinical Goal(s): Pt will remain free from falls (11/27/23 2300) Possible barriers to meeting goal(s)/advancing plan of care: clinical condition. Stability of the patient: Moderately stable - low risk of patient condition declining or worsening Summary regarding today's goal(s): Met: Pt has remained free from falls this shift. Recommendations: Hourly rounding, nonskid socks, call daily within reach, bed at lowest level, floorfree from clutter. * Respiratory Progress Note - Abby Balderas CRT - 11/27/2023 5:01 PM EDT PATIENT DRIVEN PROTOCOL - [facility] [address] [id number] Name: Nitin Pickett Location: [facility] H857/[id number] Date: 11/27/2023 Time: 5:01 PM Patient Driven Protocol Summary: Initial evaluation performed. This Treatment Plan and medications will be reviewed by the Primary Care Team for any contraindications. Respiratory Care Treatment Plan Aerosol Therapy Treatment:: Inhaler(s) PRN with Albuterol Sulfate: 2 puffs. to reduce work of breathing and improve pulmonary gas exchange. Additional Aerosolized Treatments: Inhaler(s) QDAY with Trelegy Ellipta (fluticasone furoate 100 mcg, umeclidinium 62.5 mcg and Vilanterol 25 mcg inhalation powder) / 1 inhalation. to suppress bronchial inflammation and edema by the use of systemic steroid sparing therapy. Additional Aerosolized Treatments: Inhaler(s) QDAY with Incruse Ellipta (Umeclidinium 62.5 mcg inhalation powder) / 1 inhalation. to suppress bronchial inflammation and edema by the use of systemic steroid sparing therapy. . Pulmonary Volume Expansion Therapy: Incentive Spirometry PRN to prevent or treat alveolar consolidation and atelectasis. . The patient will be re-evaluated: No re-evaluation needed. Indications for treatment met. The Triage Level is: (Assessment Score = 0 - 5) Level 5. Triage Level Definitions: Level 1 Severe Respiratory/Airway Compromise Level 2 Moderate Respiratory/Airway Compromise or high risk for pulmonary complications Level 3 Mild Respiratory/Airway Compromise or moderate risk for pulmonary complications Level 4 Episodic Respiratory/Airway Compromise or low risk for pulmonary complications Level 5 No Respiratory/Airway Compromise Triage 1 Triage 2 Triage 3 Triage 4 Triage 5 greater than 20 16 - 20 11 - 15 6 - 10 0 - 5 Medical Record Assessment Clinical Findings Pulmonary Status: 0 - No Smoking or quit greater than 10 years ago Surgical Status: 1 - General Surgery Chest X-Ray: 0 - Not Performed or performed greater than 3 days ago Assessment Score: 1 Patient Assessment Clinical Findings Respiratory Pattern: 0 - RR 12 - 20; Patient only gets breathless with strenuous exercise. Breath Sounds: 2 - Diminished bilaterally Cough Effectiveness: 0 - Strong non-productive Sputum Production: 0 - No sputum production Level of Activity: 1 - Ambulatory with assist O2 needed to keep SpO2 greater than or equal to 92%: 1 - Oxygen 1-3 LPM or FiO2 less than 35% Assessment Score: 4 Total Assessment Score: 5 Breath Sounds: Inspiratory and expiratory clear and diminished bilaterally.. Cough and Sputum: No cough was present.. CXR: None. Vital Signs: Resp: 16 (11/27/231517) Pulse: 57 (11/27/231517) Temp: 35.7 C (96.3 F) (11/27/231517) BP: 145/71 (11/27/23 1526) SpO2: 100 % (11/27/231517) PFT: Minimal Predicted IC: 1.0 L. Inspiratory capacity: 3.5L. Primary Service: Vascular Surgery. 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 Prescriptions/Home Medications/Durable Medical Equipment: QD Advair, QD Incruse, Alb PRN. * Progress Notes - Non-Billable - Andrew Aguilar MD - 11/27/2023 11:44 AM EDT PROGRESS NOTE - Vascular Surgery [facility] [id number] Name: Nitin Pickett Location: [place] [facility]/OR Date: 11/27/2023 Time: 11:44 AM DIAGNOSIS: : 6 cm abdominal aortic aneurysm PROCEDURE: EVAR DATE OF SURGERY: 11/27/23 POST OP DAY: 0 - POC SUBJECTIVE: Nitin Pickett is doing well post-op. Patient sleeping comfortably in PACU OBJECTIVE: Physical Exam: BP: 147 mmHg/66 mmHg (11/27/23 1130) Pulse: 58 (11/27/23 1130) Resp: 15 (11/27/23 1130) Temp: 35.89 C (11/27/23 1052) Temp Summary: Temp Min: 35.9 C (96.6 F) Max: 36.1 C (97 F) SpO2: 99 % (11/27/23 1130) O2 flow rate: 3 L/MIN (11/27/23 1130) Supplemental O2 Delivery: Nasal Cannula (11/27/23 1130) Constitutional: no acute distress, appropriate mood HEENT: normocephalic, atraumatic, sclera and conjunctiva normal trachea midline CV: warm and well perfused Chest: symmetric and normal respiratory effort Abdomen: soft, non distended, no guarding or rebound. Surgical site: Right groin bandage in place with no strikethroug. Right groin soft with no hematoma. Left groin prevena in place. Extremities: no edema, no cyanosis Skin: warm, dry Neuro: alert, conversant, motor function is grossly intact LABS: Labs pending IMAGING: No imaging results in the last 24 hours IMPRESSION: Principal Problem: Abdominal aortic aneurysm (AAA) without rupture (HCC) Resolved Problems: * No resolved hospital problems. * Nitin Pickett is a 88 year old male with AAA s/p EVAR by Dr. Crenshaw on 11/27/2023. Doing well post-op. PLAN: Diet: Advance as tolerated Analgesia: tylenol, oxy IVF: 75 @ 100mL/hr Nausea: Zofran PRN Respiratory: Encourage IS. RPDP Activity: encourage OOB Home Medications: restarted as appropriate DVT/PE ppx: SCDs, TEDs , & lovenox [place]: reviewed and needed Dispo: Overnight admission. documented in this encounter Plan of Treatment Upcoming Encounters Date Type Department Care Team (Late st Contact Info) Description 12/23/2023 10:00 AM EST [facility] [address] [place] [address] 12/30/2023 10:10 AM EST Office Visit Vascular Surgery, [facility] [address] [place] [id number] Saul Crenshaw MD [address] [place] [address] 04/12/2024 10:30 AM EST Office Visit Cardiology, [facility] [address] [place] [address] Shaquille Le, DO [address] [place] [address] 08/11/2024 10:20 AM EDT Office Visit [facility] [address] [place] [address] Gabi Vinson CRNP [address] [place] [address] 11/15/2024 10:20 AM EDT Office Visit [facility] [address] [place] [address] Edgardo Sánchez, [address] [place] [address] Health Maintenance Due Date Last Done Comments Adult Wellness Visit 2002 *BISPHONATE OR OTHER ACCEPTABLE MEDICATION NEEDED FOR OSTEOPOROSIS (REFER TO SMARTSET #1146) 05/11/2020 Diabetic Eye Exam 01/20/2023 01/20/2022, 01/29/2000 Diabetic Foot Exam 06/04/2023 06/03/2022 COVID-19 Vaccine ( season) 2023 Influenza Vaccine (FLU shot) (#1) 2023 11/16/2022, 11/09/2021, 11/19/2020, Additional history exists CKD PHOS USE SMARTSET 33799 01/15/202412/18, 06/03/2021, 04/24/2021, Additional history exists HbA1c 05/10/2024 11/11/2023, 12/18, 01/20/2022, Additional history exists Depression Screening 11/10/2024 11/11/2023 TSH 11/10/2024 11/11/2023, 07/3 02/2023, 01/14/2023, Additional history exists Albumin/Creatinine Ratio 11/15/2024 024, 01/16/2023, 06/03/2021, Additional history exists O2 ASSESSMENT COMPLETED IN PAST YEAR FOR COPD 11/26/2024 11/27/2023 CKD HGB USE SMARTSET 27032 11/27/202411/27, 11/27/2023, 11/16/2023, Additional history exists DTap/Tdap Vaccines (3 - Td or Tdap) 06/09/2032 06/09/2022, 09/15/2011, 01/16/1994 VITAMIN D LEVEL ONCE IN A LIFETIME-USE SMARTSET# 19456 Completed 03/29/2012, 10/24/2008 Pneumococcal Vaccine: 65+ Years [...] encounter Medical Devices Implanted Type Area Manager Pricing Device Identifier Shelf Expiration Date Model / Serial / Lot Lens Intraoc 19.0 - [id number] - [id number] Implanted:Qty: 1 on 06/18/2021 by Gilmer Davalos MD at OR [facility] Right: Eye [employer] 02/15/2026 [id number] / [id number] Plug Vasc Ampl 12mm 9-Plug-012 - [id number] Implanted:Qty: 1 on 11/27/2023 by Saul Crenshaw MD at OR [facility] Right: Iliac [employer] [id number] 2027 9-PLUG-01 [id number] 11mm X 10cm X 120cm Viabahn Endoprosthesis Stent Graft, With Heparin Bioactive Surface Implanted:Qty: 1 on 11/27/2023 by Saul Crenshaw MD at OR [facility] Right: Iliac [employer] [id number] 07/19/2026 [id number] / [id number] / [id number] Graft Abdominal 32x14.1feu63vm Stent Control Trunk Ipsilateral System Leg Aortic Aneurysm Conformable Endoprosthesis With Active Excluder Aaa - [id number] Implanted:Qty: 1 on 11/27/2023 by Saul Crenshaw MD at OR [facility] N/A: Aorta [employer] [id number] 07/14/2026 [id number] / [id number] Grft Excldr 82hdf54.5cm - [id number] Implanted:Qty: 1 on 11/27/2023 by Saul Cernshaw MD at OR [facility] Left: Iliac [employer] 12/03/2025 [id number] / [id number] / [id number] Graft Excludr [id number] - [id number] Implanted:Qty: 1 on 11/27/2023 by Saul Crenshaw MD at OR [facility] Right: Iliac [employer] [id number] 07/29/2026 [id number] / [id number] / [id number] documented as of this encounter Procedures Procedure Name Priority Date/Time Associated Diagnosis Comments BASIC METABOLIC PANEL Routine 11/28/2023 5:57 AM EDT CBC Routine 11/28/2023 5:57 AM EDT VASC PROCEDURE IN VASCULAR ANGIO SUITE Routine 11/27/2023 1:18 PM EDT BASIC METABOLIC PANEL STAT 11/27/2023 11:48 AM EDT CBC STAT 11/27/2023 11:48 AM EDT GLUCOSE METER, POINT OF CARE VIANCA 11/27/2023 11:41 AM EDT HC ECG TRACING ONLY Routine 11/27/2023 1 0:41 AM EDT Chest pain GLUCOSE METER, POINT OF CARE VIANCA 11/27/2023 9:25 AM EDT PREPARE PACKED RED BLOOD CELLS Routine 11/27/2023 7:05 AM EDT ABO/RH STAT 11/27/2023 6:57 AM EDT TYPE AND SCREEN Routine 11/27/2023 6:57 AM EDT GLUCOSE METER, POINT OF CARE VIANCA 11/27/2023 6:53 AM EDT documented in this encounter Results * (ABNORMAL) BASIC METABOLIC PANEL (11/28/2023 5:57 AM EDT) BUN 35(H) 6 - 20 mg/dL 11/28/2023 6:47 AM EDT [facility] CREATININE 1.9(H) 0.6 - 1.2 mg/dL 11/28/2023 6:47 AM EDT [facility] EGFR 33(L) >=60 mL/min 11/28/2023 6:47 AM EDT [facility] Comment:eGFR is calculated b ased on the CKD-EPI 2020 equation. SODIUM 138 135 - 146 mmol/L 11/28/2023 6:47 AM EDT [facility] POTASSIUM 4.7 3.5 - 5.1 mmol/L 11/28/2023 6:47 AM EDT [facility] CHLORIDE 104 98 - 107 mmol/L 11/28/2023 6:47 AM EDT [facility] CO2 24 22 - 32 mmol/L 11/28/2023 6:47 AM EDT [facility] ANION GAP 10 7 - 15 mmol/L 11/28/2023 6:47 AM EDT [facility] GLUCOSE 124(H) 70 - 120 mg/dL 11/28/2023 6:47 AM EDT [facility] CALCIUM 8.2(L) 8.4 - 10.2 mg/dL 11/28/2023 6:47 AM EDT [facility] Blood Venous blood specimen / Unknown Venipuncture / Unknown 11/28/2023 5:57 AM EDT 11/28/2023 6:13 AM EDT Noel Vargas MD LAB BLOOD ORDERAB LES LABORATORY [facility] [address] [place] [address] * (ABNORMAL) CBC (11/28/2023 5:57 AM EDT) WBC 11.52(H) 4.00 - 10.80 K/uL 11/28/2023 6:27 AM EDT [facility] RBC 3.34 4.50 - 5.25 M/uL 11/28/2023 6:27 AM EDT [facility] HGB 10.3(L) 14.0 - 16.8 g/dL 11/28/2023 6:27 AM EDT [facility] HCT 32.6(L) 40.0 - 48.4 % 11/28/2023 6:27 AM EDT [facility] MCV 97.6 82.0 - 99.5 fL 11/28/2023 6:27 AM EDT [facility] MCH 30.8 27.0 - 34.0 pg 11/28/2023 6:27 AM EDT LABORATORY [facility] MCHC 31.6 32.0 - 36.0 g/dL 11/28/2023 6:27 AM EDT LABORATORY C RDW 15.9 11.5 - 15.5 % 11/28/2023 6:27 AM EDT [facility] PLT 187 140 - 400 K/uL 11/28/2023 6:27 AM EDT LABORATORY C MPV 11.1 6.6 - 11.1 fL 11/28/2023 6:27 AM EDT LABORATORY C nRBCs 0 <=0 /100 WBCs 11/28/2023 6:27 AM EDT LABORATORY [facility] Blood Venous blood specimen / Unknown Venipuncture / Unknown 11/28/2023 5:57 AM EDT 11/28/2023 6:13 AM EDT Noel Vargas MD LAB BLOOD ORDERAB LES LAB[facility] [address] [place] [address] * VASC PROCEDURE IN VASCULAR ANGIO SUITE (11/27/2023 1:18 PM EDT) Narrative Scheduling, Silent - 11/27/2023 1:18 PM EDT This procedure will not be read by a Radiologist. Please see operative note. Saul Crenshaw MD RAD SPECIAL PROCEDU RES * (ABNORMAL) BASIC METABOLIC PANEL (11/27/2023 11:48 AM EDT) BUN 32(H) 6 - 20 mg/dL 11/27/2023 12:25 PM EDT LABORATORY [facility] CREATININE 1.7(H) 0.6 - 1.2 mg/dL 11/27/2023 12:25 PM EDT LABORATORY [facility] EGFR 38(L) >=60 mL/min 11/27/2023 12:25 PM EDT [facility] Comment:eGFR is calculated b ased on the CKD-EPI 2020 equation. SODIUM 137 135 - 146 mmol/L 11/27/2023 12:25 PM EDT [facility] POTASSIUM 4.9 3.5 - 5.1 mmol/L 11/27/2023 12:25 PM EDT [facility] CHLORIDE 105 98 - 107 mmol/L 11/27/2023 12:25 PM EDT [facility] CO2 22 22 - 32 mmol/L 11/27/2023 12:25 PM EDT [facility] ANION GAP 10 7 - 15 mmol/L 11/27/2023 12:25 PM EDT [facility] GLUCOSE 160(H) 70 - 120 mg/dL 11/27/2023 12:25 PM EDT [facility] CALCIUM 8.2(L) 8.4 - 10.2 mg/dL 11/27/2023 12:25 PM EDT [facility] Blood Arterial blood specimen / Unknown Arterial Puncture / Unknown 11/27/2023 11:48 AM EDT 11/27/2023 11:54 AM EDT Noel Vargas MD LAB BLOOD ORDERAB LES LAB[facility] [address] [place] [address] * (ABNORMAL) CBC (11/27/2023 11:48 AM EDT) WBC 8.74 4.00 - 10.80 K/uL 11/27/2023 12:12 PM EDT [facility] RBC 3.41 4.50 - 5.25 M/uL 11/27/2023 12:12 PM EDT [facility] HGB 10.5(L) 14.0 - 16.8 g/dL 11/27/2023 12:12 PM EDT [facility] HCT 32.4(L) 40.0 - 48.4 % 11/27/2023 12:12 PM EDT [facility] MCV 95.0 82.0 - 99.5 fL 11/27/2023 12:12 PM EDT [facility] MCH 30.8 27.0 - 34.0 pg 11/27/2023 12:12 PM EDT LABORATORY [facility] MCHC 32.4 32.0 - 36.0 g/dL 11/27/2023 12:12 PM EDT LABORATORY [facility] RDW 15.6 11.5 - 15.5 % 11/27/2023 12:12 PM EDT LABORATORY [facility] PLT 181 140 - 400 K/uL 11/27/2023 12:12 PM EDT LABORATORY [facility] MPV 10.9 6.6 - 11.1 fL 11/27/2023 12:12 PM EDT LABORATORY [facility] nRBCs 0 <=0 /100 WBCs 11/27/2023 12:12 PM EDT LAB[facility]ATORY [facility] Blood Arterial blood specimen / Unknown Arterial Puncture / Unknown 11/27/2023 11:48 AM EDT 11/27/2023 11:54 AM EDT Noel Vargas MD LAB BLOOD ORDERAB LES LABORAT[facility] [address] [place] [address] * (ABNORMAL) GLUCOSE METER, POINT OF CARE (11/27/2023 11:41 AM EDT) [facility] GLUCOSE - POCT 138(H) 70 - 120 mg/dL 11/27/2023 11:43 AM EDT [facility] Blood Whole blood specimen / Unknown 11/27/2023 11:41 AM EDT 11/27/2023 11:43 AM EDT Saul Crenshaw MD LAB POINT OF CARE T EST DOCKED DEVICE UNSOLICITED RESULTS [facility] [address] [place] [address] * EKG (11/27/2023 10:41 AM EDT) 11/27/2023 10:4 1 AM EDT Narrative Procedure Note Luiz Mendoza MD - 11/27/2023 10:41 AM EDT REASON FOR STUDY: In PACU;Chest pain CONCLUSIONS: Sinus bradycardia with 1st degree AV block Nonspecific intraventricular conduction block Possible Inferior infarct , age undetermined Abnormal ECG When compared with ECG of 17-Sep-2023 10:35, Minimal criteria for Anterior infarct are no longer Present Borderline criteria for Inferior infarct are now Present Nonspecific T wave abnormality has replaced inverted T waves in Inferiorleads Ventricular Rate: 58 Atrial Rate: 58 MT Interval: 236 QRS Duration: 126 QT/QTc: 514/504 ms P-R-T [place]: 81 : 45 : 22 degrees Noel Vargas MD EKG [facility] * GLUCOSE METER, POINT OF CARE (11/27/2023 9:25 AM EDT) [facility] GLUCOSE - POCT 114 70 - 120 mg/dL 11/27/2023 9:29 AM EDT [facility] [employer] [facility] Blood Whole blood specimen / Unknown 11/27/2023 9:25 AM EDT 11/27/2023 9:29 AM EDT Saul Crenshaw MD LAB POINT OF CARE T EST DOCKED DEVICE UNSOLICITED RESULTS Performing Organization Address City/[facility]/ZIP Co de Phone Number [facility] [address] [place] [address] * PREPARE PACKED RED BLOOD CELLS (11/27/2023 7:05 AM EDT) [facility] Unit Product Code [id number] 11/27/2023 11:17 AM EDT LABORATORY [facility] B[facility]OD [facility] Unit Number [id number] 11/27/2023 11:17 AM EDT LABORATORY [facility] BLOOD [facility] Unit ABO O 11/27/2023 11:17 AM EDT [facility] BLOOD BANK Unit Rh POS 11/27/2023 11:17 AM EDT LABORATORY [facility] BLOOD BANK Unit Crossmatch Compatible 11/27/2023 8:29 AM EDT LAB[facility]ATORY [facility] BLOOD [facility] Unit Status RE 11/27/2023 11:17 AM EDT LAB[facility]ORY [facility]OD [facility] Unit Blood Type OPOS 11/27/2023 11:17 AM EDT [facility] BLOOD B[facility] Unit Expiration [id number] 11/27/2023 11:17 AM EDT LAB[facility]ORY [facility] BLOOD B[facility] Unit Barcode 5100 11/27/2023 11:17 AM EDT LABORATORY [facility] B[facility]OD [facility] Unit Product Code [id number] 11/27/2023 11:17 AM EDT LAB[facility]ORY [facility]OD [facility] Unit Number [id number] 11/27/2023 11:17 AM EDT [facility] BLOOD B[facility] Unit ABO O 11/27/2023 11:17 AM EDT [facility] BLOOD B[facility] Unit Rh POS 11/27/2023 11:17 AM EDT LABORATORY GM BLOOD BANK Unit Crossmatch Compatible 11/27/2023 8:29 AM EDT LAB[facility]ORY [facility] BLOOD [facility] Unit Status RE 11/27/2023 11:17 AM EDT LABORATORY GM BLOOD BANK Unit Blood Type OPOS 11/27/2023 11:17 AM EDT LABORATORY C BLOOD BANK Unit Expiration [id number] 11/27/2023 11:17 AM EDT LABORATORY [facility] BLOOD BANK Unit Barcode 5100 11/27/2023 11:17 AM EDT LAB[facility]ORY [facility] BLOOD BANK 11/27/2023 7:05 AM EDT Darian Alcocer [employer]RNA BLD BANK PRODUCT OR DERABLES LABORATORY [facility] BLOOD BANK [address] [place] [address] * ABO/RH (11/27/2023 6:57 AM EDT) ABO O 11/27/2023 8:28 AM EDT LABORATORY [facility] BLOOD BANK Rh Positive 11/27/2023 8:28 AM EDT LAB[facility]ATORY [facility] BLOOD [facility] Blood Venous blood specimen / Unknown Venipuncture / Unknown 11/27/2023 6:57 AM EDT 11/27/2023 7:01 AM EDT Thiago Briscoe PA-C LAB BLOOD BANK T EST ORDERABLES Performing Organization Address City/[facility]/ZIP Co de Phone Number LABORATORY [facility] BLOOD BANK [address] [place] [address] * TYPE AND SCREEN (11/27/2023 6:57 AM EDT) ABO O 11/27/2023 8:07 AM EDT LAB[facility]ORY [facility] BLOOD [facility] Rh Positive 11/27/2023 8:07 AM EDT LAB[facility]ORY [facility] BLOOD [facility]ANK Red Blood Cell Antibody Screen Negative 11/27/2023 8:07 AM EDT LAB[facility]ORY [facility] BLOOD [facility] Specimen Expiration Date 11/30/2023 23:59 11/27/2023 8:07 AM EDT LAB[facility]ORY [facility] BLOOD [facility] Blood Venous blood specimen / Unknown Venipuncture / Unknown 11/27/2023 6:57 AM EDT 11/27/2023 7:01 AM EDT Thiago Briscoe PA-C LAB BLOOD BANK T EST ORDERABLES LAB[facility] BLOOD BANK [address] [place] [address] * GLUCOSE METER, POINT OF CARE (11/27/2023 6:53 AM EDT) GLUCOSE - POCT 105 70 - 120 mg/dL 11/27/2023 6:58 AM EDT [employer] [facility] Blood Whole blood specimen / Unknown 11/27/2023 6:53 AM EDT 11/27/2023 6:58 AM EDT Saul Crenshaw MD LAB POINT OF CARE T EST DOCKED DEVICE UNSOLICITED RESULTS [facility] [address] [place] [address] documented in this encounter Visit Diagnoses Diagnosis Abdominal aortic aneurysm (AAA) without rupture (HCC)- Primary Infrarenal abdominal aortic aneurysm (AAA) without rupture (HCC) Abdominal aortic aneurysm (AAA) without rupture (HCC) Chest pain Chest pain, unspecified documented in this encounter Administered Medications Inactive Administered Medications - up to 3 most recent administrations Medication Order MAR Action Action Date Dose Rate Site Acetaminophen (Tylenol) tab 975 mg 975 mg, Oral, PREOP, First dose on Thu11/27/23 at 0645, Last dose on Thu11/27/23 at 0645, For 1 dose, Maximum 4 g acetaminophen/day. Avoid in patients with severe hepatic impairment or severe active liver disease. Administer 60 minutes prior to OR., Pre-Op Given 11/27/2023 6:38 AM EDT 975 mg Acetaminophen (Tylenol) tab 975 mg 975 mg, Oral, Q8H, First dose on Thu11/27/23 at 1400, Last dose on Thu12/02/23 at 0600, For 5 days, Avoid in patients with severe hepatic impairment or severe active liver disease. Use for 5 days, Post-op Given 11/28/2023 6:05 AM EDT 975 mg Given 11/27/2023 8:32 PM EDT 975 mg Given 11/27/2023 3:26 PM EDT 975 mg amiodarone (Cordarone) tab 200 mg 200 mg, Oral, BREAKFAST, First dose on Thu11/27/23 at 1200, Until Discontinued Given 11/28/2023 8:17 AM EDT 200 mg Given 11/27/2023 3:26 PM EDT 200 mg aspirin enteric coated tab 81 mg 81 mg, Oral, Daily(AM), First dose on Thu11/27/23 at 1200, Until Discontinued Given 11/28/2023 8:17 AM EDT 81 mg Given 11/27/2023 3:26 PM EDT 81 mg atorvaSTATin (Lipitor) tab 80 mg 80 mg, Oral, Q1700, First dose on Thu11/27/23 at 1700, Until Discontinued Given 11/27/2023 5:30 PM EDT 80 mg ceFAZolin in dextrose (Ancef) ivpb 2 g 2 g, IV Piggyback, Q12H, 2 doses, First dose on Thu11/27/23 at 2000, Last dose on Thu11/28/23 at 0800, Post-op New Bag 11/28/2023 8:26 AM EDT 2 g 100 mL/hr New Bag 11/27/2023 8:19 PM EDT 2 g 100 mL/hr chlorhexidine gluconate cloth 2 % pad 1 Pad 1 Pad, External, PREOP, First dose on Thu11/27/23 at 0645, Last dose on Thu11/27/23 at 0645, For 1 dose, Cleanse surgical site area immediately before transferring intra-op, Pre-Op Given 11/27/2023 6:39 AM EDT 1 Pad clopidogrel (pLAVix) tab 150 mg 150 mg, Oral, ONCE, On Thu11/27/23 at 1200, For 1 dose Given 11/27/2023 3:26 PM EDT 150 mg clopidogrel (pLAVix) tab 75 mg 75 mg, Oral, Daily(AM), First dose on Thu11/28/23 at 0900, Until Discontinued Given 11/28/2023 8:17 AM EDT 75 mg fluticasone furoate-vilanterol (BREO ellipta) 200-25 MCG/ACT inhaler 1 Puff 1 Puff, Inhalation, Daily(AM), First dose on Thu11/27/23 at 1200, Until Discontinued Given 11/28/2023 8:18 AM EDT 1 Puff hEParin inj 5,000 Units 5,000 Units, Subcutaneous, Q8H, First dose on Thu11/28/23 at 0600, Until Discontinued, Post-op Given 11/28/2023 6:05 AM EDT 5,000 Units Abdomen Right Lower isolyte-S pH 7.4 infusion Intravenous, at 25 mL/hr, Plasma-LYTE 148, isolyte-S, and isolyte-S pH 7.4 are considered equivalent - including for MAR barcode scanning., CONTINUOUS, Starting on Thu11/27/23 at 0645, Until Thu11/27/23 at 1137, Pre-Op Continue from Pre-Op 11/27/2023 7:10 AM EDT 25 mL/hr New Bag 11/27/2023 6:40 AM EDT 25 mL/hr isolyte-S pH 7.4 infusion Intravenous, at 75 mL/hr, Plasma-LYTE 148, isolyte-S, and isolyte-S pH 7.4 are considered equivalent - including for MAR barcode scanning., CONTINUOUS, Starting on Thu11/27/23 at 1200, Until Thu11/28/23 at 0803, Post-op New Bag 11/28/2023 3:06 AM EDT 75 mL /hr New Bag 11/27/2023 1:44 PM EDT 75 mL/hr isolyte-S pH 7.4 infusion Intravenous, at 75 mL/hr, Plasma-LYTE 148, isolyte-S, and isolyte-S pH 7.4 are considered equivalent - including for MAR barcode scanning., CONTINUOUS, Starting on Thu11/28/23 at 0845, Until Thu11/28/23 at 1906 New Bag 11/28/2023 8:27 AM EDT 75 m L/hr levothyroxine (Levoxyl) tab 100 mcg 100 mcg, Oral, [id number], First dose on Thu11/28/23 at 0630, Until Discontinued Given 11/28/2023 6:05 AM EDT 100 mcg Lisinopril (Prinivil) tab 10 mg 10 mg, Oral, Daily(AM), First dose on Thu11/27/23 at 1200, Until Discontinued Given 11/28/2023 8:17 AM EDT 10 mg Given 11/27/2023 3:26 PM EDT 10 mg naloxone (Narcan) 0.4 MG/ML inj 0.08 mg 0.08 mg, IV Push, PRN Other, If patient is oversedated or Respiratory Rate less than 8, Starting on Thu11/27/23 at 1124, Until 11/28/23 at 1906, Call provider if patient is oversedated or Respiratory Rate is less than 8, Post-op NSS 0.9% 500 mL bolus infusion Intravenous, at 500 mL/hr Administer over 60 Minutes, Administer entire volume within 60 minutes or less., PRN, 2 doses, Starting on Thu11/27/23 at 1124, Until 11/28/23 at 1906, Hypotension, PRN systolic less than 100, Post-op oxyCODONE (Oxy IR) tab 5 mg 5 mg, Oral, Q4H PRN Pain, Severe, Starting on Thu11/27/23 at 1124, Until 11/28/23 at 1906, Post-op oxygen GAS Inhalation, OXYGEN, First dose on Thu11/27/23 at 1600, Until Discontinued, Device/Managed by: Low Flow Device, Goal SPO2 (%): 91-95, Starting Device: Nasal Cannula, Initial Flow Rate (LPM): 2, Lowest Support: Nasal Cannula: Flow 0-6 LPM. Titrate up/down by 1 LPM., Titration Interval: Q2 minutes and as needed., Notify Provider: For sudden DECREASE in resting SPO2 to less than 85% and when escalating delivery device., Wean patient off Oxygen when the oxygen saturation is greater than or equal to 93% Povidone-Iodine nasal swab 4 Swab 4 Swab, Nasal, PREOP, First dose on Thu11/27/23 at 0645, Last dose on Thu11/27/23 at 0645, For 1 dose, Tilt the bottle slightly, dip one swab into solution and stir vigorously for 10 seconds. Withdraw the swab slowly to avoid wiping solution off during removal. Insert swab comfortably into one nostril and rotate for 15 seconds, covering all surfaces. Then focus on the inside tip of nostril and rotate for an additional 15 seconds. Using a new swab, Repeat above steps in the other nostril (Swab 2). Repeat the application in both nostrils using a fresh swab each times (Swab 3 and 4)., Pre-Op Given 11/27/2023 6:38 AM EDT 4 Swabs tamsulosin (Flomax) cap 0.4 mg 0.4 mg, Oral, Daily(AM), First dose on Thu11/28/23 at 1200, Until Discontinued, Administer 30 min after meal. This med should NOT be Crushed or Chewed or opened! ORAL administration only!! Given 11/28/2023 11:31 AM EDT 0.4 mg umeclidinium [place] (INCRUSE ellipta) 62.5 MCG/ACT inhaler 1 Puff 1 Puff, Inhalation, Daily(AM), First dose on Thu11/27/23 at 1200, Until Discontinued Given 11/28/2023 8:18 AM E DT 1 Puff documented in this encounter Active and Recently Administered Medications Times are shown in EDT. Scheduled Medication Order 11/26/2023 11/27/2023 11/28/2023 Acetaminophen (Tylenol) tab 975 mg (COMPLETED) 975 mg, Oral, PREOP, First dose on Thu11/27/23 at 0645, Last dose on Thu11/27/23 at 0645, For 1 dose, Maximum 4 g acetaminophen/day. Avoid in patients with severe hepatic impairment or severe active liver disease. Administer 60 minutes prior to OR., Pre-Op 0638 (Given - Provider: Keyona Noguera RN) Acetaminophen (Tylenol) tab 975 mg 975 mg, Oral, Q8H, First dose on Thu11/27/23 at 1400, Last dose on Thu12/02/23 at 0600, For 5 days, Avoid in patients with severe hepatic impairment or severe active liver disease. Use for 5 days, Post-op 1526 (Given - Provider: Albino Hylton, RN)203 (Given - Provider: Felecia Deleon, DIANNA) 0605 (Given - Provider: Poornima Anglin, DIANNA)1400 (Due) amiodarone (Cordarone) tab 200 mg 200 mg, Oral, BREAKFAST, First dose on Thu11/27/23 at 1200, Until Discontinued 1526 (Given - Provider: Albino Hylton RN) 0817 (Given - Provider: Albino Hylton, RN) aspirin enteric coated tab 81 mg 81 mg, Oral, Daily(AM), First dose on Thu11/27/23 at 1200, Until Discontinued 152 (Given - Provider: Albino Hylton RN) 0817 (Given - Provider: Albino Hylton RN) atorvaSTATin (Lipitor) tab 80 mg 80 mg, Oral, Q1700, First dose on Thu11/27/23 at 1700, Until Discontinued 1730 (Given - Provider: Albino Hylton RN) ceFAZolin in dextrose (Ancef) ivpb 2 g (COMPLETED) 2 g, IV Piggyback, PREOP, 1 dose, First dose on Thu11/27/23 at 0645, Administer 60 minutes prior to skin incision, Pre-Op 0737 (Given - Provider: Darian Alccoer CRNA)1056 (Anes Intra-Op Fluid - Provider: Darian Alcocer CRNA) ceFAZolin in dextrose (Ancef) ivpb 2 g (COMPLETED) 2 g, IV Piggyback, Q12H, 2 doses, First dose on Thu11/27/23 at 2000, Last dose on Thu11/28/23 at 0800, Post-op 2019 (New Bag - Provider: Felecia Deleon, DIANNA) 08 (New Bag - Provider: Albino Hylton RN) chlorhexidine gluconate cloth 2 % pad 1 Pad (COMPLETED) 1 Pad, External, PREOP, First dose on Thu11/27/23 at 0645, Last dose on Thu11/27/23 at 0645, For 1 dose, Cleanse surgical site area immediately before transferring intra-op, Pre-Op 0639 (Given - Provider: Keyona Noguera, DIANNA) clopidogrel (pLAVix) tab 150 mg (COMPLETED) 150 mg, Oral, ONCE, On Thu11/27/23 at 1200, For 1 dose 1526 (Given - Provider: Albino Hylton RN) clopidogrel (pLAVix) tab 75 mg 75 mg, Oral, Daily(AM), First dose on Thu11/28/23 at 0900, Until Discontinued 0817 (Given - Provid er: Albino Hylton RN) fluticasone furoate-vilanterol (BREO ellipta) 200-25 MCG/ACT inhaler 1 Puff 1 Puff, Inhalation, Daily(AM), First dose on Thu11/27/23 at 1200, Until Discontinued 1200 (OR/Procedure - Provider: Teri Cordova, AIR POLLUTION CONTROL ENGINEER) 0818 (Given - Provider: Albino Hylton RN) hEParin inj 5,000 Units 5,000 Units, Subcutaneous, Q8H, First dose on Thu11/28/23 at 0600, Until Discontinued, Post-op 0605 (Given - Provid er: Poornima Anglin RN)1400 (Due) levothyroxine (Levoxyl) tab 100 mcg 100 mcg, Oral, [id number], First dose on Thu11/28/23 at 0630, Until Discontinued 0605 (Given - Provid er: Poornima Anglin RN) Lisinopril (Prinivil) tab 10 mg 10 mg, Oral, Daily(AM), First dose on Thu11/27/23 at 1200, Until Discontinued 1526 (Given - Provider: Albino Hylton RN) 0817 (Given - Provider: Albino Hylton RN) oxygen GAS Inhalation, OXYGEN, First dose on Thu11/27/23 at 1600, Until Discontinued, Device/Managed by: Low Flow Device, Goal SPO2 (%): 91-95, Starting Device: Nasal Cannula, Initial Flow Rate (LPM): 2, Lowest Support: Nasal Cannula: Flow 0-6 LPM. Titrate up/down by 1 LPM., Titration Interval: Q2 minutes and as needed., Notify Provider: For sudden DECREASE in resting SPO2 to less than 85% and when escalating delivery device., Wean patient off Oxygen when the oxygen saturation is greater than or equal to 93% 1600 (Oxygen Off - Provider: Albino Hylton RN) 0000 (Oxygen Off - Provider: Felecia Deleon RN)0800 (Oxygen Off - Provider: Albino Hylton RN) Povidone-Iodine nasal swab 4 Swab (COMPLETED) 4 Swab, Nasal, PREOP, First dose on Thu11/27/23 at 0645, Last dose on Thu11/27/23 at 0645, For 1 dose, Tilt the bottle slightly, dip one swab into solution and stir vigorously for 10 seconds. Withdraw the swab slowly to avoid wiping solution off during removal. Insert swab comfortably into one nostril and rotate for 15 seconds, covering all surfaces. Then focus on the inside tip of nostril and rotate for an additional 15 seconds. Using a new swab, Repeat above steps in the other nostril (Swab 2). Repeat the application in both nostrils using a fresh swab each times (Swab 3 and 4)., Pre-Op 0638 (Given - Provider: Keyona Noguera, DIANNA) tamsulosin (Flomax) cap 0.4 mg 0.4 mg, Oral, Daily(AM), First dose on Thu11/28/23 at 1200, Until Discontinued, Administer 30 min after meal. This med should NOT be Crushed or Chewed or opened! ORAL administration only!! 1131 (Given - Provid er: Albino Hylton RN) umeclidinium [place] (INCRUSE ellipta) 62.5 MCG/ACT inhaler 1 Puff 1 Puff, Inhalation, Daily(AM), First dose on Thu11/27/23 at 1200, Until Discontinued 1200 (OR/Procedure - Provider: Teri Cordova, AIR POLLUTION CONTROL ENGINEER) 0818 (Given - Provider: Albino Hylton, DIANNA) Continuous Medication Order 11/26/2023 11/27/2023 11/28/2023 isolyte-S pH 7.4 infusion (CANCELED) Intravenous, at 25 mL/hr, Plasma-LYTE 148, isolyte-S, and isolyte-S pH 7.4 are considered equivalent - including for MAR barcode scanning., CONTINUOUS, Starting on Thu11/27/23 at 0645, Until Thu11/27/23 at 1137, Pre-Op 0640 (New Bag - Provider: Keyona Noguera RN)0710 (Continue from Pre-Op - Provider: Darian Alcocer CRNA)1011 (Anes Intra-Op Fluid - Provider: Darian Alcocer CRNA)1056 (Anes Intra-Op Fluid - Provider: Darian Alcocer CRNA) isolyte-S pH 7.4 infusion (CANCELED) Intravenous, at 75 mL/hr, Plasma-LYTE 148, isolyte-S, and isolyte-S pH 7.4 are considered equivalent - including for MAR barcode scanning., CONTINUOUS, Starting on Thu11/27/23 at 1200, Until 11/28/23 at 0803, Post-op 1344 (New Bag - Provider: Albino Hylton RN) 0306 (New Bag - Provider: Poornima Anglin RN)0803 (Stopped - Provider: Albino Hylton RN) isolyte-S pH 7.4 infusion Intravenous, at 75 mL/hr, Plasma-LYTE 148, isolyte-S, and isolyte-S pH 7.4 are considered equivalent - including for MAR barcode scanning., CONTINUOUS, Starting on 11/28/23 at 0845, Until 11/28/23 at 1906 0827 (New Bag - Provider: Albino Hylton RN)1906 (Due: Stopped) PRN Medication Order 11/26/2023 11/27/2023 11/28/2023 albuterol (VENTOLIN HFA/PROVENTIL HFA) inhaler 2 Puff, Inhalation, Q6H PRN Dyspnea, Starting on Thu11/27/23 at 1119, Until 11/28/23 at 1906, Shake can for 10 seconds before each puff SEND INHALER WITH PATIENT! WASTE INFO ( IF NOT SENT HOME WITH PATIENT) : Return unused medication to pharmacy in zip lock bag for disposal into black container labeled SP. bupivacaine (Sensorcaine) 0.25 % inj (CANCELED) ONCE PRN INTRA PROCEDURE, Starting on Thu11/27/23 at 1025, Until Thu11/27/23 at 1049, Intra-Op 1025 (Given - Provider: Joe Vargas MD - Comment: Local injection surgical site) ceFAZolin 1,000 mg in sodium chloride IR 0.9 % 500 mL irrigation (CANCELED) ONCE PRN INTRA PROCEDURE, Starting on Thu11/27/23 at 0757, Until Thu11/27/23 at 1049, Intra-Op 0757 (Given - Provider: Saul Crenshaw MD) hEParin 5,000 Units in NSS 500 mL infusion (CANCELED) ONCE PRN INTRA PROCEDURE, Starting on Thu11/27/23 at 0758, Until Thu11/27/23 at 1049, Intra-Op 0754 (Given - Provider: Saul Crenshaw MD)0758 (Given - Provider: Saul Crenshaw MD) Iopamidol (Isovue M 300) inj (CANCELED) ONCE PRN INTRA PROCEDURE, Starting on Thu11/27/23 at 1005, Until Thu11/27/23 at 1049, Intra-Op 1005 (Given - Provider: Saul Crenshaw MD - Comment: Intra arterial) naloxone (Narcan) 0.4 MG/ML inj 0.08 mg 0.08 mg, IV Push, PRN Other, If patient is oversedated or Respiratory Rate less than 8, Starting on Thu11/27/23 at 1124, Until 11/28/23 at 1906, Call provider if patient is oversedated or Respiratory Rate is less than 8, Post-op NSS 0.9% 500 mL bolus infusion Intravenous, at 500 mL/hr Administer over 60 Minutes, Administer entire volume within 60 minutes or less., PRN, 2 doses, Starting on Thu11/27/23 at 1124, Until 11/28/23 at 1906, Hypotension, PRN systolic less than 100, Post-op oxyCODONE (Oxy IR) tab 5 mg 5 mg, Oral, Q4H PRN Pain, Severe, Starting on Thu11/27/23 at 1124, Until 11/28/23 at 1906, Post-op Thrombin (Thrombin-JMI) topical soln (CANCELED) ONCE PRN INTRA PROCEDURE, Starting on Thu11/27/23 at 0936, Until Thu11/27/23 at 1049, Intra-Op 0936 (Given - Provider: Saul Crenshaw MD) documented in this encounter Advance Directives * Full Code (Latest Code Status on File) Date Activated Date Inactivated Comments 11/27/2023 11:28 AM 11/28/2023 7:06 PM This orde r reflects the patients wishes and were consensually agreed upon. Question Answer Comments Discussion of Advance Direct matt occurred with: Not Discussed due to patient's condition Care Teams Salon Supervisor Relationship Specialty Start Date End Date Edgardo Sánchez DO [address] [id number] PCP - General Family Medicine 03/09/19 documented as of this encounter
--- OUTSIDE RECORDS SUMMARY | 2024-04-03 21:57 | External Medical Summary | Summary of Care ---
Author Name Unknown Organization [facility] Address [address] [place] [address] Phone [phone] Care Team Providers Care Wastewater Treatment Plant Instructor Name Role Phone Edgardo Sánchez Primary Care Provider Reason for Visit * Reason Onset Date Comments [facility]: Maintenance 12/01/2023 Encounter Details Date Type Department Care Team (Late st Contact Info) Description 12/01/2023 Telephone [facility], [facility] [address] [place] [id number] Christ Early, RN [address] [address] [facility]: Maintenance Allergies Active Allergy Reactions Criticality Noted Date Comments Latex 07/21/2016 Pt states he breaks out from this documented as of this encounter (statuses as of 12/04/2023) Medications Medication Sig Dispensed Refills Start Date End Date Status ASPIRIN 81 MG PO TABSIndications:Gaby nary atherosclerosis 1 daily 0 0 05/17/2007 Active VITAMIN D 1000 UNIT PO CAPS 1 capsule daily 0 0 12/08/2008 Active Multi-Vitamins Oral Tablet Take 1 Tablet by mouth in the morning. Active Albuterol Sulfate HFA 108 (90 Base) MCG/ACT Inhalation Aerosol SolutionIndications: COPD exacerbation (HCC) Inhale 2 Puffs by mouth every 6 hours as needed for Shortness of Breath. 18 g 3 11/21/2020 Active Additional Information Patient not taking.Reported on 12/01/2023 Diclofenac Sodium 1 % External Gel (Voltaren)Indication s:Osteoarthritis of left knee, unspecified osteoarthritis type Apply 4 g topically to affected area 3 times a day as needed for Pain, Moderate. Apply to the affected knee as needed. 1100 g 5 01/09/2023 Active Additional Information Patient not taking.Reported on 11/27/2023 Levothyroxine Sodium 100 MCG Oral Tablet (Levoxyl)Indications :Hypothyroidism due to acquired atrophy of thyroid TAKE ONE TABLET BY MOUTH DAILY AT LEAST 30 MINUTES PRIOR TO FIRST MEAL OF THE DAY OR OTHER MEDS 100 Tablet 3 03/12/2023 03/11/19 25 Active Atorvastatin Calcium 80 MG Oral Tablet (Lipitor)Indications :Dyslipidemia, goal LDL below 100 TAKE ONE TABLET BY MOUTH EVERY MORNING 100 Tablet 3 03/16/2023 Active Lisinopril 10 MG Oral Tablet (Prinivil) TAKE ONE TABLET BY MOUTH IN THE MORNING 90 Tablet 2 04/20/2023 Active Amiodarone HCl 200 MG Oral Tablet (Cordarone)Indicatio ns:Paroxysmal atrial fibrillation (HCC) TAKE ONE TABLET BY MOUTH EVERY MORNING 100 Tablet 3 07/21/2023 07/21/19 25 Active Fluticasone-Salmeter ol 500-50 MCG/ACT Inhalation Aerosol Powder Breath Activated (Advair Diskus)Indications:C OPD, group A, by GOLD 2017 classification ([facility]) INHALE ONE PUFF BY MOUTH [...] MCG/ACT Inhalation Aerosol Powder Breath Activated (umeclidinium Caspar)Indications: COPD, group A, by GOLD 2017 classification ([facility]) Inhale 1 Puff by mouth in the morning. 90 Each 12/02/2023 Active Incruse Ellipta 62.5 MCG/ACT Inhalation Aerosol Powder Breath Activated (umeclidinium Caspar)Indications: COPD, group A, by GOLD 2017 classification (HCC) Inhale 1 Puff by mouth in the morning. 90 Each 11/16/2023 12/02/19 24 Discontinu ed(Refill) documented as of this encounter (statuses as of 12/04/2023) Active Problems Problem Noted Date Diagnosed Date [...] fracture 05/09/2020 Coronary artery disease invo lving [place] coronary artery of [place] heart without angina pectoris 05/09/2020 COPD, group [...] as of this encounter (statuses as of 12/04/2023) Resolved Problems Problem Noted Date Diagnosed Date [...] as of this encounter (statuses as of 12/04/2023) Immunizations Name Administration Dates Next Due H1N1 [...] No 12/01/2023 Does the household have a [facility] source of income? (Household - for [...] encounter Miscellaneous Notes * Telephone Encounter - Edgardo Sánchez DO - 12/02/2023 1:20 PM EDT Sent to [facility] pharmacy Thank you * Telephone Encounter - Edgardo Sánchez DO - 12/01/2023 3:16 PM EDT I'm not sure I understand why this was forwarded to me - is something needed? * Telephone Encounter - Christ Early RN - 12/01/2023 1:46 PM EDT Pt has some questions regarding inhalers- appears pt Spiriva was discontinued and switched to Incruse due to cost as recommended by insurance- however pt has not received Incruse via mail order pharmacy and there is a note in pt chart stating "pt called and aware of PA- not going to fill incruse due to cost erwalls". Could you please verify and make pt aware of which medication pt should continueto take? documented in this encounter Plan of Treatment Upcoming Encounters Date Type Department Care Team (Late st Contact Info) Description 12/09/2023 9:50 AM EDT Office Visit Vascular Surgery, [facility] [address] [id number] Saul Crenshaw MD [address] [place] [address] 12/16/2023 9:40 AM EDT [facility] [place] [address] [address] Yon Bell PA-C [address] [phone] Lashanda Putnam, Community Health Tubing Supervisor [address] [place] [address] 12/23/2023 10:00 AM EST Imaging Radiology [facility] [address] [address] 12/24/2023 10:00 AM EST Home Visit [facility], [facility] [address] [address] Christ Early, DIANNA [address] [phone] 12/30/2023 10:10 AM EST Office Visit Vascular Surgery, [facility] [address] [phone] Saul Crenshaw MD [address] [place] [address] 04/12/2024 10:30 AM EST Office Visit Cardiology, [facility] [address] [address] Shaquille Le, [address] [address] 08/11/2024 10:20 AM EDT Office Visit Family Practice [facility] [address] [address] Gabi Vinson CRNP [address] [address] 11/15/2024 10:20 AM EDT Office Visit Family Practice [facility] [address] [address] Edgardo Sánchez, [address] [address] Health Maintenance Due Date Last Done Comments Adult Wellness Visit 2002 *BISPHONATE OR OTHER ACCEPTABLE MEDICATION NEEDED FOR OSTEOPOROSIS (REFER TO SMARTSET #1146) 05/11/2020 Diabetic Eye Exam 01/20/2023 01/20/2022, 01/29/2000 Diabetic Foot Exam 06/04/2023 06/03/2022 COVID-19 Vaccine ( season) 2023 Influenza Vaccine (FLU shot) (#1) 2023 11/16/2022, 11/09/2021, 11/19/2020, Additional history exists CKD PHOS USE SMARTSET 09111 01/15/202412/18, 06/03/2021, 04/24/2021, Additional history exists HbA1c 05/10/2024 11/11/2023, 12/18, 01/20/2022, Additional history exists TSH 11/10/2024 11/11/2023, 08/18, 01/14/2023, Additional history exists Albumin/Creatinine Ratio 11/15/2024 024, 01/16/2023, 06/03/2021, Additional history exists O2 ASSESSMENT COMPLETED IN PAST YEAR FOR COPD 11/26/2024 11/27/2023 CKD HGB USE SMARTSET 49895 11/27/202411/27, 11/27/2023, 11/16/2023, Additional history exists Depression Screening 11/30/2024 12/01/2023, 11/11/19 24 DTap/Tdap Vaccines (3 - Td or Tdap) 06/09/2032 06/09/2022, 09/15/2011, 01/16/1994 VITAMIN D LEVEL ONCE IN A LIFETIME-USE SMARTSET# 77492 Completed 03/29/2012, 10/24/2008 Pneumococcal Vaccine: 65+ Years [...] this encounter Medical Devices Implanted Type Area Cuff Maker Device Identifier Shelf Expiration Date Model / Serial / Lot Lens Intraoc 19.0 - [id number] - [id number] Implanted:Qty: 1 on 06/18/2021 by Gilmer Davalos MD at OR [facility] Right: Eye [employer] 02/15/2026 [id number] / [id number] Plug Vasc Ampl 12mm 9-Plug-012 - [id number] Implanted:Qty: 1 on 11/27/2023 by Saul Crenshaw MD at OR [facility] Right: Iliac [employer] [id number] 2027 9-PLUG-01 [id number] 11mm X 10cm X 120cm Viabahn Endoprosthesis Stent Graft, With Heparin Bioactive Surface Implanted:Qty: 1 on 11/27/2023 by Saul Crenshaw MD at OR [facility] Right: Iliac [employer] [id number] 07/19/2026 [id number] / [id number] / [id number] Graft Abdominal 32x14.0aef54eh Stent Control Trunk Ipsilateral System Leg Aortic Aneurysm Conformable Endoprosthesis With Active Excluder Aaa - [id number] Implanted:Qty: 1 on 11/27/2023 by Saul Crenshaw MD at OR [facility] N/A: Aorta [employer] [id number] 07/14/2026 [id number] / [id number] Grft Excldr 98bpx31.5cm - [id number] Implanted:Qty: 1 on 11/27/2023 by Saul Crenshaw MD at OR [facility] Left: Iliac [employer] 12/03/2025 [id number] / [id number] / [id number] Graft Excludr [id number] - [id number] Implanted:Qty: 1 on 11/27/2023 by Saul Crenshaw MD at [facility] Right: Iliac [employer] [id number] 07/29/2026 [id number] / [id number] / [id number] documented as of this encounter Visit Diagnoses Diagnosis COPD, group A, by GOLD 2017 classification (HCC) documented in this encounter Advance Directives * Full Code (Latest Code Status on File) Date Activated Date Inactivated Comments 11/27/2023 11:28 AM 11/28/2023 7:06 PM This orde r reflects the patients wishes and were consensually agreed upon. Question Answer Comments Discussion of Advance Direct matt occurred with: Not Discussed due to patient's condition Care Teams Wastewater Treatment Plant Instructor Relationship Specialty Start Date End Date Edgardo Sánchez DO [address] [phone] PCP - General Family Medicine 03/09/19 documented as of this encounter
--- OUTSIDE RECORDS SUMMARY | 2024-04-03 21:57 | External Medical Summary ---
Author Name Unknown Address Unknown Organization K01:[facility] - [address] [address] Laboratory Report Ordering Provider Test Date Status ALLY BEAVERS 11/27/2023 06:57:02 Final Observation Date Value Abnormality Reference (Units ) Status ABO 11/27/2023 06:57:02 O Final RH 11/27/2023 06:57:02 Positive Final RED BLOOD CELL ANTIBODY SCREEN 11/27/2023 06:57:02 Negative Final SPECIMEN EXPIRATION DATE 11/27/2023 06:57:02 11/30/2023 23:59 Final Performing Location [facility] - [address] [place] [address]
--- OUTSIDE RECORDS SUMMARY | 2024-04-03 21:57 | External Medical Summary | Summary of Care ---
Author Name Unknown Organization [facility] Address [address] [place] [address] Phone [phone] Care Team Providers Care Clinical Dietitian Name Role Phone Edgardo Sánchez Primary Care Provider Reason for Visit * Reason Onset Date Comments [facility]: Maintenance 12/01/2023 Encounter Details Date Type Department Care Team (Late st Contact Info) Description 12/01/2023 Telephone [facility], [facility] [address] [place] [id number] Christ Early, RN [address] [id number] [facility]: Maintenance Allergies Active Allergy Reactions Criticality Noted Date Comments Latex 07/21/2016 Pt states he breaks out from this documented as of this encounter (statuses as of 12/02/2023) Medications Medication Sig Dispensed Refills Start Date [...] OPD, group A, by GOLD 2017 classification ([facility]) INHALE ONE PUFF BY MOUTH [...] MCG/ACT Inhalation Aerosol Powder Breath Activated (umeclidinium [place])Indications: COPD, group A, by GOLD 2017 classification ([facility]) Inhale 1 Puff by mouth in the morning. 90 Each 12/02/2023 Active Incruse Ellipta 62.5 MCG/ACT Inhalation Aerosol Powder Breath Activated (umeclidinium [place])Indications: COPD, group A, by GOLD 2017 classification (HCC) Inhale 1 Puff by mouth in the morning. 90 Each 11/16/2023 12/02/19 24 Discontinu ed(Refill) documented as of this encounter (statuses as of 12/02/2023) Active Problems Problem Noted Date Diagnosed Date [...] fracture 05/09/2020 Coronary artery disease invo lving three affiliated coronary artery of three affiliated heart without angina pectoris 05/09/2020 COPD, group A, by GOLD 2017 classification 11/27 Overview: Per COPD GOLD Classification History of [place] (myocardial infarction) 07/11/2016 Abdominal aortic aneurysm (AAA) [...] as of this encounter (statuses as of 12/02/2023) Resolved Problems Problem Noted Date Diagnosed Date [...] as of this encounter (statuses as of 12/02/2023) Immunizations Name Administration Dates Next Due H1N1 [...] No 12/01/2023 Does the household have a [facility]? (Household - [...] - 12/02/2023 1:20 PM EDT Sent to [facility] Thank you * Telephone Encounter [...] 9:50 AM EDT Office Visit Vascular Surgery, [facility] [address] [address] aSul Crenshaw MD [address] [place] [address] 12/16/2023 9:40 AM EDT Home Visit [facility] [place], [facility] [address] [address] Yon Bell PA-C [address] [address] Lashanda Putnam, Community Health Community Support Associate [address] [place] [address] 12/23/2023 10:00 AM EST Imaging Radiology [facility] [address] [place] [address] 12/24/2023 10:00 AM EST Home Visit [facility], [facility] [address] [address] Christ Early, DIANNA [address] [address] 12/30/2023 10:10 AM EST Office Visit Vascular Surgery, [facility] [address] [id number] Saul Crenshaw MD [address] [place] [address] 04/12/2024 10:30 AM EST Office Visit Cardiology, [facility] [address] [address] Shaquille Le, [address] [address] 08/11/2024 10:20 AM EDT Office Visit Family Practice [facility] [address] [address] Gabi Vinson CRNP [address] [address] 11/15/2024 10:20 AM EDT Office Visit Family Practice [facility] [address] [address] Edgardo Sánchez, [address] [phone] Health Maintenance Due Date Last Done Comments Adult Wellness Visit 2002 *BISPHONATE OR OTHER ACCEPTABLE MEDICATION NEEDED FOR OSTEOPOROSIS (REFER TO SMARTSET #1146) 05/11/2020 Diabetic Eye Exam 01/20/2023 01/20/2022, 01/29/2000 Diabetic Foot Exam 06/04/2023 06/03/2022 COVID-19 Vaccine ( season) 2023 Influenza Vaccine (FLU shot) (#1) 2023 11/16/2022, 11/09/2021, 11/19/2020, Additional history exists CKD PHOS USE SMARTSET 92333 01/15/202412/18, 06/03/2021, 04/24/2021, Additional history exists HbA1c 05/10/2024 11/11/2023, 12/18, 01/20/2022, Additional history exists TSH 11/10/2024 11/11/2023, 08/18, 01/14/2023, Additional history exists Albumin/Creatinine Ratio 11/15/2024 024, 01/16/2023, 06/03/2021, Additional history exists O2 ASSESSMENT COMPLETED IN PAST YEAR FOR COPD 11/26/2024 11/27/2023 CKD HGB USE SMARTSET 40893 11/27/202411/27, 11/27/2023, 11/16/2023, Additional history exists Depression Screening 11/30/2024 12/01/2023, 11/11/19 24 DTap/Tdap Vaccines (3 - Td or Tdap) 06/09/2032 06/09/2022, 09/15/2011, 01/16/1994 VITAMIN D LEVEL ONCE IN A LIFETIME-USE SMARTSET# 95811 Completed 03/29/2012, 10/24/2008 Pneumococcal Vaccine: 65+ Years [...] this encounter Medical Devices Implanted Type Area Adhesion Tester Device Identifier Shelf Expiration Date Model / Serial / Lot Lens Intraoc 19.0 - [id number] - [id number] Implanted:Qty: 1 on 06/18/2021 by Gilmer Davalos MD at OR [facility] Right: Eye [employer] 02/15/2026 [id number] / [id number] Plug Vasc Ampl 12mm 9-Plug-012 - [id number] Implanted:Qty: 1 on 11/27/2023 by Saul Crenshaw MD [place] [facility] [place] Right: Iliac [employer] [id number] 2027 9-PLUG-01 [id number] 11mm X 10cm X 120cm Viabahn Endoprosthesis Stent Graft, With Heparin Bioactive Surface Implanted:Qty: 1 on 11/27/2023 by Saul Crenshaw MD [place] [facility] [place]: Iliac [employer] [id number] 07/19/2026 [id number] / [id number] / [id number] Graft Abdominal 32x14.6mvl77bb Stent Control Trunk Ipsilateral System Leg Aortic Aneurysm Conformable Endoprosthesis With Active Excluder Aaa - [id number] Implanted:Qty: 1 on 11/27/2023 by Saul Crenshaw MD at [place] [facility] [place] N/A: Aorta [employer] [id number] 07/14/2026 [id number] / [id number] Grft Excldr 98mcv20.5cm - [id number] Implanted:Qty: 1 on 11/27/2023 by Saul Crenshaw MD at [place] [facility] [place] Left: Iliac [employer] 12/03/2025 [id number] / [id number] / [id number] Graft Excludr [id number] - [id number] Implanted:Qty: 1 on 11/27/2023 by Saul Crenshaw MD at [facility] Right: Iliac [employer] [id number] 07/29/2026 [id number] / [id number] / [id number] documented as of this encounter Visit Diagnoses [...] Discussed due to patient's condition Care Teams Clinical Dietitian Relationship Specialty Start Date End Date Edgardo Sánchez DO [address] [address] PCP - General Family Medicine 03/09/19 documented as of this encounter
--- OUTSIDE RECORDS SUMMARY | 2024-04-03 21:58 | External Medical Summary ---
Author Name Unknown Address Unknown Organization K01:[facility] [place] - [address] [facility] [address] Laboratory Report Ordering Provider Test Date Status VANCE ESPANA 11/11/2023 11:20:46 Final Observation Date Value Abnormality Reference (Units ) Status HbA1C 11/11/2023 11:20:46 5.8 Above high normal 4. 0-5.6 (%) Final The use of HbA1c to monitor glycemic status is based on normal hemoglobin and HbA composition. This test should not be used in patients with abnormal hemoglobin that affects the half life of the red blood cell or the in vivo glycation rates. Glucose, estimated average 11/11/2023 11:20:46 120 <126 (mg/dL) Final Performing Location [facility] [place] - [address] [place] [address]
--- OUTSIDE RECORDS SUMMARY | 2024-04-03 21:58 | External Medical Summary | Summary of Care ---
Author Name Unknown Organization [facility] Address [address] [place] [address] Phone [phone] Care Team Providers Care Clark Driver Name Role Phone Edgardo Sánchez DO Primary Care Provider Reason for Visit * Reason Comments Re-Check 6 mo check Encounter Details Date Type Department Care Team (Latest Contact Info) Description 11/11/2023 10:40 AM EDT Office Visit Family Practice [facility] [address] [place] [address] Edgardo Sánchez DO [address] [facility] [address] Type 2 diabetes mellitus with stage 3b chronic kidney disease, without long-term current use of insulin ([facility])*; Risk and functional assessment; Type 2 diabetes mellitus with hemoglobin A1c goal of less than 8.0% ([facility]); DYSLIPIDEMIA, GOAL LDL BELOW 100; Hypothyroidism due to medication; COPD, group A, by GOLD 2017 classification ([facility]); Paroxysmal atrial fibrillation ([facility]); Coronary artery disease involving [place] coronary artery of [place] heart without angina pectoris; Infrarenal abdominal aortic aneurysm (AAA) without rupture ([facility]); Age-related osteoporosis without current pathological fracture Allergies Active Allergy Reactions Criticality Noted Date Comments Latex 07/21/2016 Pt states he breaks out from this documented as of this encounter (statuses as of 11/11/2023) Medications Medication Sig Dispensed Refills Start Date End Date Status ASPIRIN 81 MG PO TABSIndications:Giselle lynch atherosclerosis 1 daily 0 0 05/17/2007 Active [...] as needed. 1100 g 5 01/09/2023 Active Levothyroxine Sodium 100 MCG Oral Tablet (Levoxyl)Indications: Hypothyroidism due to acquired atrophy of thyroid TAKE ONE TABLET BY MOUTH DAILY AT LEAST 30 MINUTES PRIOR TO FIRST MEAL OF THE DAY OR OTHER MEDS 100 Tablet 3 03/12/2023 03/11/2024 Active Atorvastatin Calcium 80 MG Oral Tablet (Lipitor)Indications: Dyslipidemia, goal LDL below 100 TAKE ONE TABLET BY MOUTH EVERY MORNING 100 Tablet 3 03/16/2023 Active Lisinopril 10 MG Oral Tablet (Prinivil) TAKE ONE TABLET BY MOUTH IN THE MORNING 90 Tablet 2 04/20/2023 Active Fluticasone-Salmetero l 500-50 MCG/ACT Inhalation Aerosol Powder Breath Activated (Advair Diskus)Indications:CO PD, group A, by GOLD 2017 classification ([facility]) INHALE ONE PUFF BY MOUTH TWICE A DAY IN THE MORNING AND BEFORE BEDTIME 180 Each 2 05/20/2023 Active Amiodarone HCl 200 MG Oral Tablet (Cordarone)Indication s:Paroxysmal atrial fibrillation (HCC) TAKE ONE TABLET BY MOUTH EVERY MORNING 100 Tablet 3 07/21/2023 07/20/2024 Active Tiotropium [place] Monohydrate 18 MCG Inhalation Capsule (Spiriva HandiHaler)Indication s:COPD, group A, by GOLD 2017 classification ([facility]) INHALE ONE CAPSULE BY MOUTH IN THE MORNING FOR INHALER ONLY DO NOT SWALLOW 90 Capsule 3 08/18/2023 08/17/2024 Active documented as of this encounter (statuses as of 11/11/2023) Active Problems Problem Noted Date Diagnosed Date [...] fracture 05/09/2020 Coronary artery disease invo lving [place] coronary artery of [place] heart without angina pectoris 05/09/2020 COPD, group [...] as of this encounter (statuses as of 11/11/2023) Resolved Problems Problem Noted Date Diagnosed Date [...] as of this encounter (statuses as of 11/11/2023) Immunizations Name Administration Dates Next Due H1N1 2009 Influenza, IM 01/16/2009 Pneumococcal Conjugate Vacc, 13 Valent (Prevnar) 03/28/2014 Seasonal Influenza Virus Vac cine, Unspecified Formulation 11/21/2019,12/17/2016 Seasonal Influenza, High Dos e, Trivalent, PF, IM (Fluzone HD) 11/09/2021 Seasonal Influenza, PF, 6 M & above, IM , (FluLaval or Fluzone) 11/16/2022 Seasonal Influenza, Quadriva lent, No Preserve, IM 11/19/2020,11/22/2018,12/17/2017,2016,01/07/2016 Seasonal Influenza, Trivalen t, (IIV3), with Preserv, (Fluzone) 11/13/2014,11/16/2012,11/17/2011,2010,11/07/2009,11/02/2008,11/26/2007,1 ,12/02/2005 TDAP (age 10 and older)(Boostrix) 06/09/2022, Varicella [...] Date Recorded PHQ Adult Total Score 0 06/03/2022 Hunger Vital Sign Answer Date Recorded Worried About Running Out of Food in the Last Ye ar Never true 10/12/2019 Ran Out of Food in the Last Year Never true 10/12/2019 Utilities Answer Date Recorded Do you have trouble paying y our heating, water, or electric bill? (Adult - for ages 18 years and over) Not on file 08/04/2023 Is your family able to pay t he heat, water, or electric bill? (Household - for ages 0-17 years) Not on file 08/04/2023 Does your family have access to good internet? (Household - for ages 0-17 years) Not on file 08/04/2023 Social Connections Answer Date Recorded How often do you feel lonely or isolated from those around you? (Adult - for ages 18 years and over) Not on file 08/04/2023 Sex and Gender Information Value Date Recorded Sex Assigned at Male 10/12/2019 8:18 AM EDT Gender Identity Male 10/12/2019 8:18 AM EDT Sexual Orientation Straight 10/12/2019 8: 18 AM EDT Job Start Date Occupation Industry Not on file Not on file Not on file documented as of this encounter Last Filed Vital Signs Vital Sign Reading Time Taken Comments Blood Pressure 128/78 11/11/2023 10:32 AM EDT Pulse 68 11/11/2023 10:32 AM EDT Temperature 36.6 C (97.9 F) 11/11/2023 10:32 AM E DT Respiratory Rate 20 11/11/2023 10:32 AM EDT Oxygen Saturation - - Inhaled Oxygen Concentration - - Weight 86.2 kg (190 lb) 11/11/2023 10:32 AM EDT Height - - Body Mass Index 27.26 01/06/2023 7:46 AM EST documented in this encounter Patient Instructions * Patient Instructions* Sarah Gonzalez RN - 11/11/2023 10:32 AM EDT Patient Instructions - Fall Prevention (This education is for all patients over 65 regardless of symptoms) Remember to take your current medications as prescribed. In order to prevent falls, you are encouraged to: Exercise Utilize assistive/adaptive devices Avoid multifocal lenses when walking Avoid hazards in home Maintain a regular toileting schedule Any questions please contact our office. Preventing Falls in the Home (This education is for all patients over 65 regardless of symptoms) As you get older, falls are more likely. Thats because your reaction time slows. Your muscles and joints may also get stiffer, making them less flexible. Illness, medications, and vision changes can also affect your balance. A fall could leave you unable to live on your own. To make your home safer, follow these tips: Floors Put nonskid pads under area rugs Remove throw rugs Replace worn floor coverings Tack carpets firmly to each step on carpeted stairs. Put nonskid strips on the edges of uncarpeted stairs Keep floors and stairs free of clutter and cords Arrange furniture so there are clear pathways Clean up any spills right away Bathrooms Install grab bars in the tub or shower Apply nonskid strips or put a nonskid rubber mat in the tub or shower Sit on a bath chair to bathe Use bathmats with nonskid backing Lighting Keep a flashlight in each room Put a nightlight along the pathway between the bedroom and the bathroom [facility] Patient Education Copyright 2008 - 2010 Kryst[employer] except where otherwise noted Preventing Falls: Exercises to Improve Balance, Flexibility, Strength, and Staying Power (This education is for all patients over 65 regardless of symptoms) Certain types of exercises may help make you less likely to fall. Try the ones below. Or do other exercises that your healthcare provider suggests. Depending on your health, you may need to start slowly. Dont let that stop you. Even small amounts of exercise can help you. Be sure to talk to yourhealthcare provider before starting any exercise program. Improve Balance Many types of exercise can help improve balance. Bandar chi and yoga are good examples. Heres another one to try. You can do it anytime and almost anywhere. Stand next to a counter or solid support. Push yourself up onto your tiptoes. Hold for 5 seconds. If you start to lose your balance, hold on to the counter. Rest and repeat 5 times. Work up to holding for 20 to 30 seconds, if you can. Increase Flexibility Being more flexible makes it easier for you to move around safely. Try exercises like the seated hamstring stretch. Sit in a chair and put one foot on a stool. Straighten your leg and reach with both hands down either side of your leg. Reach as far down your leg as you can. Hold for about 20 seconds. Go back to the starting position. Then repeat 5 times. Switch legs. Build Strength Resistance exercises help build strength. You can do them without equipment. Or you can use weights, elastic bands, or special machines. One such exercise is called the biceps curl. You can hold a 1 pound weight or even a can of soup. Do this exercise at least 3 times a week. Strive for everyday. Sit up straight in a chair. Keep your elbow close to your body and your wrist straight. Bend your arm, moving your hand up to your shoulder. Then slowly lower your arm. Repeat 5 times. Switch to the other arm. Build Your Staying Power Aerobic exercises make your heart and lungs stronger so you can keep moving longer. Walking and swimming are two of the best types of exercises you can do. Using a stationary bike is great, too. Find an aerobic exercise that you enjoy. Start slowly and build up. Even 5 minutes is helpful. Aimfor a goal of 30 minutes, at least 3 times a week. You dont have to do 30 minutes in one session. Break it up and walk a little throughout the day. More Helpful Tips Start easy. Slowly work up to doing more. Talk with your healthcare provider about the best exercises for you. Call senior centers or health clubs about exercise programs. If needed, have a family member watch you walk every so often to check your stability. Exercise with a friend. Choose an activity you both enjoy. Try exercises that you can do anytime, anywhere. Here are two examples. Have someone with you when you first try these: Practice walking by placing one foot right in front of the other. Stand up and sit down 10 times. Repeat this throughout the day. [email or web address] Patient Education Copyright 2008 - 2010 [email or web address] except where otherwise noted. Preventing Falls: Moving Safely Using a Cane or Walker (This education is for all patients over 65 regardless of symptoms) Keep the cane away from your feet so you dont trip. A walking aid, such as a cane or walker, can help you stay more independent and avoid falls. Remember to keep your walking aid within easy reach when youre in a chair or in bed. And learn how to use it safely so you dont injure yourself. Using a Cane If you have a stronger side, hold the cane on that side. Get your balance. Move the cane and your weaker leg forward. Support your weight on both the cane and your weaker side. Step with your stronger leg. Start again from step 1. If youre using a folding walker, be sure you know how to lock it open. Check that its locked open before each use. Using a Walker Roll the walker (or lift it, if youre using one without wheels) forward about 12 inches. Step forward with your weaker leg first. Use the walker to help keep your balance. Bring your other foot forward to the center of the walker. Start again from step 1. Helpful Tips Check with your healthcare provider about the right walking aid to use. Ask about a walker with a seat attached. Check the tips of your cane or walker to make sure they have nonskid covers. Move slowly from room to room. Dont sanchez. Sit down to get dressed. Use a tania pack or backpack to keep your hands free. Get help for jobs that mean climbing, even on a stepstool. [employer] Patient Education Copyright 2008 - 2010 Krystian except where otherwise noted. Treating Urinary Incontinence in Men (This education is for all patients over 65 regardless of symptoms) You can't always control the release of urine. You may leak urine. Or you may not be able to hold your urine until you can get to a bathroom. This is called urinary incontinence. The problem can be managed. Talk to your doctor about your treatment options. Taking Medications Prescription medications may help you. They may: Help the sphincter to work better. (This is the muscle that closes to keep urine from leaking out of the bladder.) Help stop the bladder from boby too often to push urine out. Help the bladder muscles contract with more force. Help relax the sphincter muscle and allow urine to flow more freely. Making Changes to Your Routine Certain changes in your daily routine may help. These include: Avoiding caffeine and alcohol. Using timed voiding. This is following a schedule for drinking fluids and urinating. Doing Kegel exercises daily. These exercises involve tightening the muscles in your sphincter and around your bladder to help strengthen them. Your doctor can explain how to do them. Using a Catheter A catheter is a narrow tube that is inserted through the urethra into the bladder. It drains urine.A condom catheter covers the penis. It channels urine into a collection bag. It is worn most of thetime. Intermittent catheterization means inserting a catheter to drain the bladder, then removing it. This is done on a regular schedule. Having Surgery If other options don't work, surgery may be recommended. If surgery is an option, your healthcare provider can discuss it with you and explain its risks and benefits. Healing After Prostate Surgery Surgery on the prostate gland can cause incontinence. Most often, the incontinence is only for a short time. It clears up when healing is complete. Very rarely, prostate surgery can result in permanent incontinence. documented in this encounter Progress Notes * Gonzalo Edgardostacy Piña, - 11/11/2023 10:59 AM EDT Images from the original note were not included. Assessment and Plan Type 2 diabetes mellitus with stage 3b chronic kidney disease, without long-term current use of insulin (HCC) - HEMOGLOBIN A1C; Future - ALBUMIN / CREATININE RATIO, URINE; Future Risk and functional assessment Type 2 diabetes mellitus with hemoglobin A1c goal of less than 8.0% ([facility]) Continue to monitor Labs will be drawn today DYSLIPIDEMIA, GOAL LDL BELOW 100 - COMPREHENSIVE METABOLIC PANEL; Future - LIPID PANEL WITH DIRECT LDL IF TG IS HIGH; Future Hypothyroidism due to medication - TSH WITH FREE T4 IF INDICATED; Future COPD, group A, by GOLD 2017 classification ([facility]) Stable respiratory status Continue to monitor Paroxysmal atrial fibrillation ([facility]) Stable rate Coronary artery disease involving [place] coronary artery of [place] heart without angina pectoris No chest pain, continue to monitor Infrarenal abdominal aortic aneurysm (AAA) without rupture ([facility]) Will be undergoing procedure/surgery with Dr Crenshaw upcoming Age-related osteoporosis without current pathological fracture stable History of Present Illness Nitin Pickett is a 88 year old male that presents for Re-Check (6 mo check) Presents today in f/u Doing very well overall And is compliant with medications Feels good, though complains of morning Stiffness with knees/back Improves throughout the day No chest pain, no new VELEZ Physical Exam Vitals: 11/11/23 1032 Temp: 36.6 C (97.9 F) Pulse: 68 Resp: 20 BP: 128/78 Physical Exam Vitals and nursing note reviewed. Constitutional: Appearance: Normal appearance. HENT: Head: Normocephalic and atraumatic. Right Ear: Tympanic membrane, ear canal and external ear normal. There is no impacted cerumen. Left Ear: Tympanic membrane, ear canal and external ear normal. There is no impacted cerumen. Nose: Nose normal. Mouth/Throat: Mouth: Mucous membranes are moist. Pharynx: Oropharynx is clear. Eyes: Extraocular Movements: Extraocular movements intact. Conjunctiva/sclera: Conjunctivae normal. Pupils: Pupils are equal, round, and reactive to light. Cardiovascular: Rate and Rhythm: Normal rate and regular rhythm. Heart sounds: Normal heart sounds. Pulmonary: Effort: Pulmonary effort is normal. Breath sounds: Normal breath sounds. Abdominal: General: Abdomen is flat. Palpations: Abdomen is soft. Musculoskeletal: General: Normal range of motion. Cervical back: Normal range of motion and neck supple. Lymphadenopathy: Cervical: No cervical adenopathy. Skin: General: Skin is warm and dry. Neurological: General: No focal deficit present. Mental Status: He is alert and oriented to person, place, and time. Wrap-Up Follow-up: Return in about 10 months (around 09/09/2024). | Check-out note: Labs today Time: Total time today was 44 minutes excluding any time spent in the performance of separately billed services. * Sarah Gonzalez RN - 11/11/2023 10:32 AM EDT Fall Risk Plan of Care Documentation: - Current medications reconciled Patient encouraged to: - Exercise - Provide education materials for Core strengthening - Utilize assistive/adaptive devices - Provide education materials - Avoid multifocal lenses when walking - Avoid hazards in home - Provide education materials - Maintain a regular toileting schedule Sarah Gonzalez RN 11/11/2023 Hemoglobin a1c ordered today. Provider aware. Sarah Gonzalez RN Urine albumin/creatinine ratio ordered today. Provider aware. documented in this encounter Plan of Treatment Upcoming Encounters Date Type Department Care Team (Latest Contact Info) Description 11/16/2023 10:00 AM EDT [facility] [address] [facility] [place] [phone] Walt Brown [address] [facility] [place] [address] 11/27/2023 7:15 AM EDT Hospital Encounter [facility], OPERATING ROOM [facility], [facility] [address] [place] [phone] Saul Crenshaw MD [address] [facility] [place] [address] 11/27/2023 7:15 AM EDT - 11/27/2023 10:53 AM EDT Surgery OR [facility], OPERATING ROOM [facility], [facility] [address] [place] [phone] Saul Crenshaw MD [address] [place] [address] ENDOVASCULAR INFRARENAL AORTA AND OR [id number] PROSTH[facility] RADIOLOGY SUPERVISION & INTERPRETATION ONE ENDOPROSTHESIS 12/23/2023 10:00 AM EST Imaging Radiology [address] [place] [address] 12/30/2023 10:10 AM EST Office Visit Vascular Surgery, [facility] [address] [place] [address] Saul Crenshaw MD [address], [place] [id number] 04/12/2024 10:30 AM EST Office Visit Cardiology, [facility] [address] [place] [address] Shaquille Le, [address] [place] [address] 08/11/2024 10:20 AM EDT Office Visit Family Practice [facility] [address] [place] [address] Gabi Vinson CRNP [address] [place] [address] 11/15/2024 10:20 AM EDT Office Visit Family Practice [facility] [address] [place] [address] Edgardo Sánchez, DO [address] [place] [address] Pending Results Name Type Priority Associated Diagnoses Date /Time COMPREHENSIVE METABOLIC PANEL Lab Routine DYSLIPIDEMIA, GOAL LDL BELOW 100 11/11/2023 11:20 AM EDT HEMOGLOBIN A1C Lab Routine Type 2 diabetes mellitus with stage 3b chronic kidney disease, without long-term current use of insulin (HCC) 11/11/2023 11:20 AM EDT LIPID PANEL WITH DIRECT LDL IF TG IS HIGH Lab Routine DYSLIPIDEMIA, GOAL LDL BELOW 100 11/11/2023 11:20 AM EDT TSH WITH FREE T4 IF INDICATED Lab Routine Hypothyroidism due to medication 11/11/2023 11:20 AM EDT Scheduled Orders Name Type Priority Associated Diagnoses Orde r Schedule COMPREHENSIVE METABOLIC PANEL Lab Routine DYSLIPIDEMIA, GOAL LDL BELOW 100 Expected: 11/11/2023 (Approximate), Expires: 11/10/2024 HEMOGLOBIN A1C Lab Routine Type 2 diabetes mellitus with stage 3b chronic kidney disease, without long-term current use of insulin (HCC) Expected: 11/11/2023 (Approximate), Expires: 11/10/2024 ALBUMIN / CREATININE RATIO, URINE Lab Routine Type 2 diabetes mellitus with stage 3b chronic kidney disease, without long-term current use of insulin (HCC) Expected: 11/11/2023 (Approximate), Expires: 11/10/2024 LIPID PANEL WITH DIRECT LDL IF TG IS HIGH Lab Routine DYSLIPIDEMIA, GOAL LDL BELOW 100 Expected: 11/11/2023, Expires: 11/10/2024 TSH WITH FREE T4 IF INDICATED Lab Routine Hypothyroidism due to medication Expected: 11/11/2023 (Approximate), Expires: 11/10/2024 Scheduled Procedures Name Priority Associated Diagnoses Date/Ti la ENDOVASCULAR INFRARENAL AORT A AND OR [id number] PROSTHESIS[facility]. RADIOLOGY SUPERVISION & INTERPRETATION ONE ENDOPROSTHESIS 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) 11/27/2023 7:15 AM EDT OPEN FEMORAL ARTERY EXPOSURE FOR ENDOVASCULAR PROSTHESIS 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) 11/27/2023 7:15 AM EDT PERCUTANEOUS ACCESS/CLOSURE FEMORAL ARTERY FOR ENDOGRAFT, INC ULTRASOUND GUIDANCE, UNILATERAL 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) 11/27/2023 7:15 AM EDT Health Maintenance Due Date Last Done Comments Adult Wellness Visit 2002 *BISPHONATE OR OTHER ACCEPTABLE MEDICATION NEEDED FOR OSTEOPOROSIS (REFER TO SMARTSET #1146) 05/11/2020 Diabetic Eye Exam 01/20/2023 01/20/2022, 01/29/2000 Diabetic Foot Exam 06/04/2023 06/03/2022 HbA1c 07/15/2023 01/14/2023, 06/2021, 06/03/2021, Additional history exists COVID-19 Vaccine ( season) 2023 Influenza Vaccine (FLU shot) (#1) 2023 11/16/2022, 11/09/2021, 11/19/2020, Additional history exists CKD PHOS USE SMARTSET 11337 01/15/202412/18, 06/03/2021, 04/24/2021, Additional history exists Albumin/Creatinine Ratio 01/17/2024 023, 06/03/2021, 09/13/2015, Additional history exists CKD HGB USE SMARTSET 58182 05/26/202405/26, 05/27/2023, 01/14/2023, Additional history exists TSH 09/15/2024 09/16/2023, 12/18, 12/09/2021, Additional history exists O2 ASSESSMENT COMPLETED IN PAST YEAR FOR COPD 09/16/2024 09/17/2023 Depression Screening 11/10/2024 11/11/2023 DTap/Tdap Vaccines (3 - Td or Tdap) 06/09/2032 06/09/2022, 09/15/2011, 01/16/1994 VITAMIN D LEVEL ONCE IN A LIFETIME-USE SMARTSET# [id number] Completed 03/29/2012, 10/24/2008 Pneumococcal Vaccine: 65+ Years [...] this encounter Medical Devices Implanted Type Area Shift Supervisor Film Processing Device Identifier Shelf Expiration Date Model / Serial / Lot Lens Intraoc 19.0 - [id number] - [id number] Implanted:Qty: 1 on 06/18/2021 by Gilmer Davalos MD at OR [facility] Right: Eye [employer] 02/15/2026 [id number] / [id number] / [id number] documented as of this encounter Visit Diagnoses Diagnosis Abdominal aortic aneurysm (AAA) without rupture (HCC)- Primary Infrarenal abdominal aortic aneurysm (AAA) without rupture (HCC) Abdominal aortic aneurysm (AAA) without rupture (HCC) Type 2 diabetes mellitus with stage 3b chronic kidney disease, without long-term current use of insulin (HCC)- Primary Risk and functional assessment Screening for unspecified condition Type 2 diabetes mellitus with hemoglobin A1c goal of less than 8.0% (HCC) DYSLIPIDEMIA, GOAL LDL BELOW 100 Other and unspecified hyperlipidemia 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, group A, by GOLD 2017 classification (HCC) Paroxysmal atrial fibrillation (HCC) Atrial fibrillation Coronary artery disease involving [place] coronary artery of [place] heart without angina pectoris Infrarenal abdominal aortic aneurysm (AAA) without rupture (HCC) Age-related osteoporosis without current pathological fracture Senile osteoporosis 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) documented in this encounter Care Teams Clark Driver Relationship Specialty Start Date End Date Edgardo Sánchez DO [address] [place] [address] PCP - General Family Medicine 03/09/19 documented as of this encounter"
--- OUTSIDE RECORDS SUMMARY | 2024-04-03 21:58 | External Medical Summary ---
Author Name Unknown Address Unknown Organization : Laboratory Report Ordering Provider Test Date Status RENETTA ESCALANTE 11/27/2023 06:53:47 Final Observation Date Value Abnormality Reference (Units ) Status Glucose Point of Care 11/27/2023 06:53:47 105 70-120 (mg/dL) Final Performing Location
--- OUTSIDE RECORDS SUMMARY | 2024-04-03 21:58 | External Medical Summary ---
Author Name Unknown Address Unknown Organization [id number]:LABORATORY [facility] [address] [place] [address] Laboratory Report Ordering Provider Test Date Status ALLY BEAVERS 11/16/2023 09:44:15 Final Observation Date Value Abnormality Reference (Units ) Status WBC, Total 11/16/2023 09:44:15 7.59 4.00-10.8 0 (K/uL) Final RBC 11/16/2023 09:44:15 3.95 4.50-5.25 (M/uL) Final Hemoglobin 11/16/2023 09:44:15 12.1 Below low normal 14 .0-16.8 (g/dL) Final HCT 11/16/2023 09:44:15 37.9 Below low normal 40. 0-48.4 (%) Final MCV 11/16/2023 09:44:15 95.9 82.0-99.5 (fL) Final MCH 11/16/2023 09:44:15 30.6 27.0-34.0 (pg) Final MCHC 11/16/2023 09:44:15 31.9 32.0-36.0 (g/dL) Final RDW 11/16/2023 09:44:15 16.1 11.5-15.5 (%) Final Platelets 11/16/2023 09:44:15 226 140-400 (K /uL) Final MPV 11/16/2023 09:44:15 11.6 6.6-11.1 ( fL) Final Performing Location LABORATORY [facility] [place] [address] [place] [address]
--- OUTSIDE RECORDS SUMMARY | 2024-04-03 21:58 | External Medical Summary ---
Author Name Unknown Address Unknown Organization K01:LAB[facility]ORY [facility] [place] [address] [facility] [address] Laboratory Report Ordering Provider Test Date Status VANCE ESPANA 11/11/2023 11:20:46 Final Observation Date Value Abnormality Reference (Units ) Status Triglyceride 11/11/2023 11:20:46 64 <=174 ( mg/dL) Final Triglyceride Reference Range s (mg/dL):
<150 Acceptable
150-174 Borderline high
175-499 High
>=500 Very high Cholesterol 11/11/2023 11:20:46 94 <200 (mg /dL) Final Total Cholesterol Reference Ranges (mg/dL):
<200 Desirable
200-239 Borderline high
>=240 High HDL 11/11/2023 11:20:46 29 Below low normal >39 (mg/dL) Final HDL Cholesterol Reference Ra nges (mg/dL):
>=60 High (Desirable)
<50 Low (Undesirable) For Females
<40 Low (Undesirable) For Males NON-HDL CHOLESTEROL 11/11/2023 11:20:46 65 <=159 (mg/dL) Final Non-HDL Cholesterol Referenc e Range (mg/dL):
<100 Target level for high risk ASCVD patient
<130 Optimal for general population
130-159 Near optimal for general population
160-189 Borderline High
190-219 High
>=220 Very High LDL, (calculated) 11/11/2023 11:20:46 52 <= 129 (mg/dL) Final LDL Cholesterol Reference Ra nges (mg/dL):
<70 Target level for high risk ASCVD patient
<100 Optimal for general population
100-129 Near optimal for general population
130-159 Borderline high
160-189 High
>=190 Very high Performing Location [facility] [place] [address] [facility] [address]
--- OUTSIDE RECORDS SUMMARY | 2024-04-03 21:58 | External Medical Summary ---
Author Name Unknown Address Unknown Organization K01:LAB[facility]ORY [facility] [place] - [address] [place] [address] Laboratory Report Ordering Provider Test Date Status VANCE ESPANA 11/16/2023 15:26:24 Final Normal: <30 mg/g creatinine< br/>High: 30-300 mg/g creatinine
Very High: >300 mg/g creatinine
Nephrotic: >2200 mg/g creatinine Observation Date Value Abnormality Reference (Units ) Status Albumin, Urine 11/16/2023 15:26:24 <1.20 (mg/dL) Final Creatinine, Urine 11/16/2023 15:26:24 97 (mg/dL) Final Albumin/Creatinine [Mass Ratio] in Urine 11/16/2023 15:26:24 <12 <30 (mg/g Creat) Final Performing Location LABORATORY [facility] [place] - [address] [place] [address]
--- OUTSIDE RECORDS SUMMARY | 2024-04-03 21:58 | External Medical Summary ---
Author Name Unknown Address Unknown Organization K0G:LABORATORY [facility] [place] [address] [place] [address] Laboratory Report Ordering Provider Test Date Status ALLY BEAVERS 11/16/2023 09:44:15 Final Observation Date Value Abnormality Reference (Units ) Status BUN 11/16/2023 09:44:15 26 Above high normal 6-20 (mg/dL) Final Creatinine 11/16/2023 09:44:15 1.5 Above high normal 0.6-1.2 (mg/dL) Final Glomerular filtration rate/1.73 sq M.predicted [Volume Rate/Area] in Serum, Plasma or Blood by Creatinine-based formula (CKD-EPI) 11/16/2023 09:44:15 44 Below low normal >=60 (mL/min) Final eGFR is calculated based on the CKD-EPI 2020 equation. Sodium 11/16/2023 09:44:15 141 135-146 (m mol/L) Final Potassium 11/16/2023 09:44:15 4.2 3.5-5.1 (m mol/L) Final Cl 11/16/2023 09:44:15 105 98-107 (mm ol/L) Final CO2 11/16/2023 09:44:15 26 22-32 (mmo l/L) Final Anion gap 11/16/2023 09:44:15 10 7-15 (mmol /L) Final Glucose 11/16/2023 09:44:15 91 70-120 (mg /dL) Final Calcium 11/16/2023 09:44:15 9.2 8.4-10.2 ( mg/dL) Final Performing Location LABORATORY [facility] [place] [address] [place] [address]
--- OUTSIDE RECORDS SUMMARY | 2024-04-03 21:58 | External Medical Summary ---
Author Name Unknown Address Unknown Organization [facility] [address] [place] [address] Laboratory Report Ordering Provider Test Date Status ALLY BEAVERS 11/16/2023 09:44:15 Final Observation Date Value Abnormality Reference (Units ) Status SYNC LEUKOCYTES IN BLOOD BY AUTOMATED COUNT 11/16/2023 09:44:15 7.59 4.00-10.80 (K/uL) Final Segs 11/16/2023 09:44:15 60.6 40.0-75.0 (%) Final Lymphs % 11/16/2023 09:44:15 26.0 18.0-42.0 (%) Final Monos 11/16/2023 09:44:15 11.2 Above high normal 1.0-11.0 (%) Final Eosinophils 11/16/2023 09:44:15 1.4 0.0-6.0 (%) Final Basos 11/16/2023 09:44:15 0.8 0.0-2.0 (%) Final Absolute Segs 11/16/2023 09:44:15 4.60 1.80-7.70 (K/uL) Final Lymphs, absolute 11/16/2023 09:44:15 1.97 1.00-4.80 (K/ul) Final Monos, Abs 11/16/2023 09:44:15 0.85 0.00-1.10 (K/uL) Final Eos, Abs 11/16/2023 09:44:15 0.11 0.00-0.70 (K/uL) Final Basos, Abs 11/16/2023 09:44:15 0.06 0.00-0.20 (K/uL) Final Performing Location LABORATORY [facility] [place] [address] [place] [address]
--- OUTSIDE RECORDS SUMMARY | 2024-04-03 21:58 | External Medical Summary | Summary of Care ---
Author Name Unknown Organization [facility] Address [address] [place] [address] Phone [phone] Care Team Providers Care Machine Oiler Name Role Phone Edgardo Sánchez DO Primary Care Provider Reason for Visit * Reason Onset Date Comments medication change 11/11/2023 Encounter Details Date Type Department Care Team (Late st Contact Info) Description 11/11/2023 Telephone [facility] [address] [facility] [address] [facility]gardo [facility] [address] [facility] [address] medication change Allergies Active Allergy Reactions Criticality Noted Date Comments Latex 07/21/2016 Pt states he breaks out from this documented as of this encounter (statuses as of 11/16/2023) Medications Medication Sig Dispensed Refills Start Date End Date Status ASPIRIN 81 MG PO TABSIndications:Cor onary atherosclerosis 1 daily 0 0 8 Active VITAMIN D 1000 UNIT PO CAPS 1 capsule daily 0 0 9 Active Multi-Vitamins Oral Tablet Take 1 Tablet by mouth in the morning. Active Albuterol Sulfate HFA 108 (90 Base) MCG/ACT Inhalation Aerosol SolutionIndications :COPD exacerbation (HCC) Inhale 2 Puffs by mouth every 6 hours as needed for Shortness of Breath. 18 g 3 1 Active Diclofenac Sodium 1 % External Gel (Voltaren)Indicatio ns:Osteoarthritis of left knee, unspecified osteoarthritis type Apply 4 g topically to affected area 3 times a day as needed for Pain, Moderate. Apply to the affected knee as needed. 1100 g 5 3 Active Levothyroxine Sodium 100 MCG Oral Tablet (Levoxyl)Indication s:Hypothyroidism due to acquired atrophy of thyroid TAKE ONE TABLET BY MOUTH DAILY AT LEAST 30 MINUTES PRIOR TO FIRST MEAL OF THE DAY OR OTHER MEDS 100 Tablet 3 4 03/11/19 25 Active Atorvastatin Calcium 80 MG Oral Tablet (Lipitor)Indication s:Dyslipidemia, goal LDL below 100 TAKE ONE TABLET BY MOUTH EVERY MORNING 100 Tablet 3 4 Active Lisinopril 10 MG Oral Tablet (Prinivil) TAKE ONE TABLET BY MOUTH IN THE MORNING 90 Tablet 2 4 Active Amiodarone HCl 200 MG Oral Tablet (Cordarone)Indicati ons:Paroxysmal atrial fibrillation (HCC) TAKE ONE TABLET BY MOUTH EVERY MORNING 100 Tablet 3 4 07/21/19 25 Active Incruse Ellipta 62.5 MCG/ACT Inhalation Aerosol Powder Breath Activated (umeclidinium [place])Indications :COPD, group A, by GOLD 2017 classification ([facility]) Inhale 1 Puff by mouth in the morning. 90 Each 4 Active Fluticasone-Salmete rol 500-50 MCG/ACT Inhalation Aerosol Powder Breath ActivatedIndication s:COPD, group A, by GOLD 2017 classification ([facility]) INHALE ONE PUFF BY MOUTH TWICE A DAY IN THE MORNING AND BEFORE BEDTIME 180 Each 4 Active Fluticasone-Salmete rol 500-50 MCG/ACT Inhalation Aerosol Powder Breath Activated (Advair Diskus)Indications: COPD, group A, by GOLD 2017 classification ([facility]) INHALE ONE PUFF BY MOUTH TWICE A DAY IN THE MORNING AND BEFORE BEDTIME 180 Each 2 4 11/11/19 24 Discontinued Tiotropium [place] Monohydrate 18 MCG Inhalation Capsule (Spiriva HandiHaler)Indicati ons:COPD, group A, by GOLD 2017 classification ([facility]) INHALE ONE CAPSULE BY MOUTH IN THE MORNING FOR INHALER ONLY DO NOT SWALLOW 90 Capsule 3 4 11/11/19 24 Discontinued Trelegy Ellipta 100-62.5-25 MCG/ACT Aerosol Powder Breath Activated (Fluticasone-Umecli dinium-Vilanterol)I ndications:COPD, group A, by GOLD 2017 classification (HCC) Inhale 1 Puff by mouth in the morning. 180 Each 4 11/11/19 24 Discontinued(Fo rmulary/Cost) documented as of this encounter (statuses as of 11/16/2023) Active Problems Problem Noted Date Diagnosed Date [...] fracture 05/09/2020 Coronary artery disease invo lving [place] coronary artery of [place] heart without angina pectoris 05/09/2020 COPD, group [...] as of this encounter (statuses as of 11/16/2023) Resolved Problems Problem Noted Date Diagnosed Date [...] as of this encounter (statuses as of 11/16/2023) Immunizations Name Administration Dates Next Due H1N1 [...] encounter Miscellaneous Notes * Telephone Encounter - Bertha Ibarra RPh - 11/11/2023 3:00 PM EDT Trelegy co-pay is very high. Called [facility] to see what is going on and obtain cost estimate of available options. [facility] All [facility] inhalers are Tier 3 however Incruse would be the cheaper option as suggested by [facility]. Discussed with plan and most cost- effective option for patient would be generic Advair (Tier 2) + Incruse. Pended Rx's for Advair generic and Incruse, please issue if appropriate. Thank you, Bertha Ibarra, PharmD Clinical Pharmacist [facility] 11/11/23 3:01 PM [phone] * Telephone Encounter - Edgardo Sánchez DO - 11/11/2023 1:56 PM EDT Sounds like a great plan * Telephone Encounter - Bertha Ibarra RPh - 11/11/2023 11:25 AM EDT Spiriva cost is high. Incruse appears to be covered as a replacement with a lower copay. However, pt is also taking Advair. May consider sending in Trelegy to replace both inhalers and promote adherence/decrease cost. Please advise if agreeable. Please route back so I can follow-up with pt and pharmacy. Thank you, Bertha Ibarra PharmD Clinical Pharmacist [facility] 11/11/23 11:26 AM [phone] * Telephone Encounter - Trini Ya PHARM Tech - 11/11/2023 11:16 AM EDT This is not a prior auth request. This is a request for an alternative prescription. Please advise. Thanks, Trini Ya Log Turner III [facility] 11/11/2023,11:16 AM * Telephone Encounter - Gilma Adams PHARM Tech - 11/11/2023 11:02 AM EDT Jelena from [employer] [employer] calling to inform doctor that the patient's medication has a high copay and is requesting an alternative. Did confirm this information with the pharmacy. Pt's current insurance information is as follows: Patient name: Nitin Pickett ID number: [id number] BIN number: [id number] PCN number: [id number] Group number: [id number] Subscriber name: Nitin Pickett Primary or Secondary Insurance:Primary Medication: Tiotropium [place] Monohydrate 18 MCG Inhalation Capsule (Spiriva HandiHaler) Reason for Request: Looking for a cheaper alternative- copay for 30 day supply on Spiriva is $118.28 for brand as generic not covered Pharmacy and phone number: [facility] [phone] Rx plan and phone number: [facility] Asif [phone] Is this a new medication for the patient? No. How did the patient obtain the medication on the lastfill? It was covered last time on this same insurance. What alternative medications does the pharmacy have in stock?: [facility] solution states the Incruse Ellipta 62.5 would be the cheaper alternative for the pt and that pt requests a 90 day supply sent to mail order for the alternative Thank You, Gilma Adams CPhT Log Turner II [facility] 11/11/2023, 11:05 AM documented in this encounter Plan of Treatment Upcoming Encounters Date Type Department Care Team (Latest Contact Info) Description 11/27/2023 7:15 AM EDT Hospital Encounter [facility], OPERATING ROOM [facility] [address] [place] [phone] Saul Crenshaw MD [address], [place] [id number] 11/27/2023 7:15 AM EDT - 11/27/2023 10:53 AM EDT Surgery OR [facility], OPERATING ROOM [facility] [address] [place] [address] Saul Crenshaw MD [address], [place] [id number] ENDOVASCULAR INFRARENAL AORTA AND OR [facility]X-TV-CPOSD [facility] RADIOLOGY SUPERVISION & INTERPRETATION ONE ENDOPROSTHESIS 12/23/2023 10:00 AM EST Imaging Radiology [facility] [address] [facility] [place] [address] 12/30/2023 10:10 AM EST Office Visit Vascular Surgery, [facility] [address] [facility] [place] [address] Saul Crenshaw MD [address] [facility] [place] [address] 04/12/2024 10:30 AM EST Office Visit Cardiology, [facility] [address] [place] [address] Shaquille Le, DO [address] [place] [address] 08/11/2024 10:20 AM EDT Office Visit [facility] [address] [place] [address] Gabi Vinson CRNP [address] [place] [address] 11/15/2024 10:20 AM EDT Office Visit [facility] [address] [place] [address] Edgardo Sánchez, [address] [place] [address] Scheduled Procedures Name Priority Associated Diagnoses Date/Ti me ENDOVASCULAR INFRARENAL AORT A AND OR [id number] PROSTHESIS, INC. RADIOLOGY SUPERVISION & INTERPRETATION ONE [...] Additional history exists CKD PHOS USE SMARTSET 33301 01/15/202412/18, 06/03/2021, 04/24/2021, Additional history exists Albumin/Creatinine Ratio 01/17/2024 023, 06/03/2021, 09/13/2015, Additional history exists HbA1c 05/10/2024 11/11/2023, 12/18, 01/20/2022, Additional history exists O2 ASSESSMENT COMPLETED IN PAST YEAR FOR COPD 09/16/2024 09/17/2023 Depression Screening 11/10/2024 11/11/2023 TSH 11/10/2024 11/11/2023, 08/18, 01/14/2023, Additional history exists CKD HGB USE SMARTSET 78891 11/15/202411/15, 11/16/2023, 05/27/2023, Additional history exists DTap/Tdap Vaccines (3 - Td or Tdap) 06/09/2032 06/09/2022, 09/15/2011, 01/16/1994 VITAMIN D LEVEL ONCE IN A LIFETIME-USE SMARTSET# 28523 Completed 03/29/2012, 10/24/2008 Pneumococcal Vaccine: 65+ Years [...] this encounter Medical Devices Implanted Type Area Subscription Agent Device Identifier Shelf Expiration Date Model / Serial / Lot Lens Intraoc 19.0 - [id number] - [id number] Implanted:Qty: 1 on 06/18/2021 by Gilmer Davalos MD at OR [facility] Right: Eye [employer]OM[employer] 02/15/2026 [id number] / [id number] / [id number] documented as of this encounter Visit Diagnoses Diagnosis Abdominal aortic aneurysm (AAA) without rupture (HCC)- Primary Infrarenal abdominal aortic aneurysm (AAA) without rupture (HCC) Abdominal aortic aneurysm (AAA) without rupture (HCC) COPD, group A, by GOLD 2017 classification (HCC)- Primary 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) documented in this encounter Care Teams Machine Oiler Relationship Specialty Start Date End Date Edgardo Sánchez DO [address] [place] [id number] PCP - General Family Medicine 03/09/19 documented as of this encounter
--- OUTSIDE RECORDS SUMMARY | 2024-04-03 21:58 | External Medical Summary | Summary of Care ---
Author Name Unknown Organization [facility] Address [address] [place] [address] Phone [phone] Care Team Providers Care Manager Diversity Name Role Phone Edgardo Sánchez DO Primary Care Provider Reason for Visit * Reason Onset Date Comments medication change 11/11/2023 Encounter Details Date Type Department Care Team (Late st Contact Info) Description 11/11/2023 Telephone Family Practice [facility] [address] [facility] [phone] Edgardo S[facility] [address] [facility] [address] medication change Allergies Active Allergy Reactions Criticality Noted Date Comments Latex 07/21/2016 Pt states he breaks out from this documented as of this encounter (statuses as of 11/17/2023) Medications Medication Sig Dispensed Refills Start Date [...] MCG/ACT Inhalation Aerosol Powder Breath Activated (umeclidinium [place])Indications :COPD, group A, by GOLD 2017 classification ([facility]) Inhale 1 Puff by mouth in the morning. 90 Each 4 Active Fluticasone-Salmete rol 500-50 MCG/ACT Inhalation Aerosol Powder Breath ActivatedIndication s:COPD, group A, by GOLD 2017 classification ([facility]) INHALE ONE PUFF BY MOUTH TWICE A DAY IN THE MORNING AND BEFORE BEDTIME 180 Each 4 Active Fluticasone-Salmete rol 500-50 MCG/ACT Inhalation Aerosol Powder Breath Activated (Advair Diskus)Indications: COPD, group A, by GOLD 2017 classification ([facility]) INHALE ONE PUFF BY MOUTH TWICE A DAY IN THE MORNING AND BEFORE BEDTIME 180 Each 2 4 11/11/19 24 Discontinued Tiotropium [place] Monohydrate 18 MCG Inhalation Capsule (Spiriva HandiHaler)Indicati ons:COPD, group A, by GOLD 2017 classification ([facility]) INHALE ONE CAPSULE BY MOUTH IN THE MORNING FOR INHALER ONLY DO NOT SWALLOW 90 Capsule 3 4 11/11/19 24 Discontinued Trelegy Ellipta 100-62.5-25 MCG/ACT Aerosol Powder Breath Activated (Fluticasone-Umecli dinium-Vilanterol)I ndications:COPD, group A, by GOLD 2017 classification (HCC) Inhale 1 Puff by mouth in the morning. 180 Each 4 11/11/19 24 Discontinued(Fo rmulary/Cost) documented as of this encounter (statuses as of 11/17/2023) Active Problems Problem Noted Date Diagnosed Date [...] fracture 05/09/2020 Coronary artery disease invo lving [place] coronary artery of [place] heart without angina pectoris 05/09/2020 COPD, group A, by GOLD 2017 classification 11/27 Overview: Per COPD GOLD Classification History of [place] (myocardial infarction) 07/11/2016 Abdominal aortic aneurysm (AAA) [...] as of this encounter (statuses as of 11/17/2023) Resolved Problems Problem Noted Date Diagnosed Date [...] as of this encounter (statuses as of 11/17/2023) Immunizations Name Administration Dates Next Due Diptheria/Tetanus (Adult) 01/16/1994 H1N1 2009 Influenza, IM 01/16/2009 Pneumococcal Conjugate Vacc, 13 Valent (Prevnar) 03/28/2014 Pneumococcal Polysaccharide PPV23 (Pneumovax) 02/03/2005,01/25/1997,02/17/1989 Seasonal Influenza Virus Vac cine, Unspecified Formulation 11/21/2019,12/17/2016,12/08/1996 Seasonal Influenza, High Dos e, Trivalent, PF, IM (Fluzone HD) 11/09/2021 Seasonal Influenza, PF, 6 M & above, IM , (FluLaval or Fluzone) 11/16/2022 Seasonal Influenza, Quadriva lent, No Preserve, IM 11/19/2020,11/22/2018,12/17/2017,12/18,01/07/2016 Seasonal Influenza, Trivalen t, (IIV3), with Preserv, (Fluzone) 11/13/2014,11/16/2012,11/17/2011,11/07,11/07/2009,11/02/2008,11/26/2007 ,11/23/2006,12/02/2005,11/20/2004,11/16,12/07/2002,12/01/2001, 1,12/30/1999,12/07/1998 TDAP (age 10 and older)(Boostrix) 06/09/2022, Varicella [...] Telephone Encounter - Bertha Ibarra RPh - 11/17/2023 8:49 AM EDT LMOVM to inform pt Incruse sent to replace Spiriva d/t cost per insurance suggestion. When pt returns call, please transfer to me. If I am not available, please transfer to the next [facility]. Thank you, Bertha Ibarra, PharmD Clinical Pharmacist [facility] ([facility]) 11/17/23 8:52 AM [phone] * Telephone Encounter - Bertha Ibarra RPh - 11/11/2023 3:00 PM EDT Trelegy co-pay is very high. Called [facility] to see what is going on and obtain cost estimate of available options. Pt is in donut hole. All [facility] inhalers are Tier 3 however Incruse would be the cheaper option as suggested by [employer]. Discussed with plan and most cost- effective option for patient would be generic Advair (Tier 2) + Incruse. Pended Rx's for Advair generic and Incruse, please issue if appropriate. Thank you, Bertha Ibarra PharmD Clinical Pharmacist [facility] ([facility]) 11/11/23 3:01 PM [phone] * Telephone Encounter - Edgardo Sánchez DO [...] Clinical Pharmacy Services ([facility]) 11/11/23 11:26 AM [phone] * Telephone Encounter - Trini Ya PHARM Tech - 11/11/2023 11:16 AM EDT This is not a prior auth request. This is a request for an alternative prescription. Please advise. Thanks, Trini Ya Legislative Analyst III [facility] ([facility]) 11/11/2023,11:16 AM * Telephone Encounter - Gilma Adams PHARM Tech - 11/11/2023 11:02 AM EDT Jelena from [employer] calling to inform doctor that the patient's medication has a high copay and is requesting an alternative. Did confirm this information with the pharmacy. Pt's current insurance information is as follows: Patient name: Nitin Pickett ID number: [id number] BIN number: [id number] PCN number: [id number] Group number: [id number] Subscriber name: Nitin Pickett Primary or Secondary Insurance:Primary Medication: Tiotropium [place] Monohydrate 18 MCG Inhalation Capsule (Spiriva HandiHaler) Reason for Request: Looking for a cheaper alternative- copay for 30 day supply on Spiriva is $118.28 for brand as generic not covered Pharmacy and phone number: [facility] [phone] Rx plan and phone number: [facility] [phone] Is this a new medication for the patient? No. How did the patient obtain the medication on the lastfill? It was covered last time on this same insurance. What alternative medications does the pharmacy have in stock?: Leikr states the Incruse Ellipta 62.5 would be the cheaper alternative for the pt and that pt requests a 90 day supply sent to mail order for the alternative Thank You, Gilma Adams CPhT Legislative Analyst II [facility] ([facility]) 11/11/2023, 11:05 AM documented in this encounter Plan of Treatment Upcoming Encounters Date Type Department Care Team (Latest Contact Info) Description 11/27/2023 7:15 AM EDT Hospital Encounter [facility], OPERATING ROOM [facility] [place] [address] [place] [address] Saul Crenshaw MD [address] [place] [facility] [address] 11/27/2023 7:15 AM EDT - 11/27/2023 10:53 AM EDT Surgery [place] [facility] [place] [address] [place] [facility] [address] Saul Crenshaw MD [address] [place] [facility] [address] ENDOVASCULAR INFRARENAL AORTA AND OR [id number] PROSTHESIS, INC. RADIOLOGY SUPERVISION & INTERPRETATION ONE ENDOPROSTHESIS 12/23/2023 10:00 AM EST Imaging Radiology [facility] 1st [facility] [address] [place] [address] 12/30/2023 10:10 AM EST Office Visit Vascular Surgery, [facility] [address] [place] [address] Saul Crenshaw MD [address] [place] [facility] [place] [address] 04/12/2024 10:30 AM EST Office Visit Cardiology, [facility] [address] [place] [address] Shaquille Le, [address] [place] [address] 08/11/2024 10:20 AM EDT Office Visit Family Practice [facility] [address] [place] [address] Gabi Vinson CRNP [address] [place] [address] 11/15/2024 10:20 AM EDT Office Visit Family [facility] [address] [place] [address] Edgardo Sánchez, [address] [place] [address] Scheduled Procedures Name Priority Associated Diagnoses Date/Ti me ENDOVASCULAR INFRARENAL AORT A AND OR [id number] PROSTHESIS, INC. RADIOLOGY SUPERVISION & INTERPRETATION ONE [...] Additional history exists CKD PHOS USE SMARTSET 41817 01/15/202412/18, 06/03/2021, 04/24/2021, Additional history exists HbA1c 05/10/2024 11/11/2023, 12/18, 01/20/2022, Additional history exists O2 ASSESSMENT COMPLETED IN PAST YEAR FOR COPD 09/16/2024 09/17/2023 Depression Screening 11/10/2024 11/11/2023 TSH 11/10/2024 11/11/2023, 07/3 02/2023, 01/14/2023, Additional history exists Albumin/Creatinine Ratio 11/15/2024 024, 01/16/2023, 06/03/2021, Additional history exists CKD HGB USE SMARTSET 32449 11/15/202411/15, 11/16/2023, 05/27/2023, Additional history exists DTap/Tdap Vaccines (3 - Td or Tdap) 06/09/2032 06/09/2022, 09/15/2011, 01/16/1994 VITAMIN D LEVEL ONCE IN A LIFETIME-USE SMARTSET# 70066 Completed 03/29/2012, 10/24/2008 Pneumococcal Vaccine: 65+ Years [...] this encounter Medical Devices Implanted Type Area Rfid Systems Architect Device Identifier Shelf Expiration Date Model / Serial / Lot Lens Intraoc 19.0 - [id number] - [id number] Implanted:Qty: 1 on 06/18/2021 by Gilmer Davalos MD at OR [facility] Right: Eye [employer] LOMB 02/15/2026 [id number] / [id number] / [id number] documented as of this encounter Visit Diagnoses Diagnosis Abdominal aortic aneurysm (AAA) without rupture (HCC)- Primary Infrarenal abdominal aortic aneurysm (AAA) without rupture (HCC) Abdominal aortic aneurysm (AAA) without rupture (HCC) COPD, group A, by GOLD 2017 classification (HCC)- Primary 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
--- OUTSIDE RECORDS SUMMARY | 2024-04-03 21:58 | External Medical Summary | Summary of Care ---
Author Name Unknown Organization [facility] Address [address] [place] [address] Phone [phone] Care Team Providers Care Cistern Room Operator Name Role Phone Edgardo Sánchez DO Primary Care Provider Reason for Visit * Reason Onset Date Comments Pre Cert/Prior Auth 11/18/2023 Fluticasone- salmeterol 500-50 inhaler (Advair) Encounter Details Date Type Department Care Team (Late st Contact Info) Description 11/18/2023 Telephone Family Practice [facility] [address] [facility] [address] Edgardo Sánchez DO [address] [place] [address] Pre Cert/Prior Auth (Fluticasone-salmetero. .. Allergies Active Allergy Reactions Criticality Noted Date Comments Latex 07/21/2016 Pt states he breaks out from this documented as of this encounter (statuses as of 11/18/2023) Medications Medication Sig Dispensed Refills Start Date [...] MORNING 100 Tablet 3 07/21/2023 07/20/2024 Active Incruse Ellipta 62.5 MCG/ACT Inhalation Aerosol Powder Breath Activated (umeclidinium [place])Indications:C OPD, group A, by GOLD 2017 classification ([facility]) Inhale 1 Puff by mouth in the morning. 90 Each 11/16/2023 Active Fluticasone-Salmetero l 500-50 MCG/ACT Inhalation Aerosol Powder Breath Activated (Advair Diskus)Indications:CO PD, group A, by GOLD 2017 classification ([facility]) INHALE ONE PUFF BY MOUTH TWICE A DAY IN THE MORNING AND BEFORE BEDTIME 180 Each 11/16/2023 Active documented as of this encounter (statuses as of 11/18/2023) Active Problems Problem Noted Date Diagnosed Date [...] fracture 05/09/2020 Coronary artery disease invo lving [place] coronary artery of [place] heart without angina pectoris 05/09/2020 COPD, group A, by GOLD 2017 classification 11/27 Overview: Per COPD GOLD Classification History of [place] (myocardial infarction) 07/11/2016 Abdominal aortic aneurysm (AAA) [...] as of this encounter (statuses as of 11/18/2023) Resolved Problems Problem Noted Date Diagnosed Date [...] as of this encounter (statuses as of 11/18/2023) Immunizations Name Administration Dates Next Due H1N1 [...] encounter Miscellaneous Notes * Telephone Encounter - Vianey Leiva CPhT - 11/18/2023 2:22 PM EDT This is a new [place] request. Upon review of this prior authorization request, I verified this should be covered on the plan per RX Estimate tool. I called the pharmacy and advised [facility]. I confirmed they received a paid claim. Thank you, Vianey Leiva [facility]orman [facility] 11/18/2023,2:22 PM * Telephone Encounter - Aimee Borden CPhT - 11/18/2023 8:05 AM EDT Pharmacy calling to inform doctor that the patient's insurance will not pay for this medication without a completed prior authorization. Did confirm this information with the pharmacy. Pt's current insurance information is as follows: Patient name: Nitin Pickett ID number: [id number] BIN number: [id number] PCN number: [id number] Group number: none Subscriber name: Nitin Pickett Primary or Secondary Insurance:Primary Medication: Fluticasone-salmeterol 500-50 inhaler (Advair) Reason for Request: product not formulary Pharmacy and phone number: [facility] [phone] Rx plan and phone number: count includes the [facility] [phone] Is this a new medication for the patient? No. How did the patient obtain the medication on the lastfill? It was covered last time on this same insurance. What alternative medications does the pharmacy have in stock?: none Thank you, Aimee Borden CphT Lay Out Helper III [facility]) 11/18/23 documented in this encounter Plan of Treatment Upcoming Encounters Date Type Department Care Team (Latest Contact Info) Description 11/27/2023 7:15 AM EDT Hospital Encounter OR [facility], OPERATING ROOM [facility] [address] [facility] [place] [phone] Saul Crenshaw MD [address] [facility] [place] [id number] 11/27/2023 7:15 AM EDT - 11/27/2023 10:53 AM EDT Surgery OR [facility], OPERATING ROOM [facility] [address] [facility] [place] [address] Saul Crenshaw MD [address] [facility], [place] [id number] ENDOVASCULAR INFRARENAL AORTA AND OR [id number] PROSTHESIS, INC. RADIOLOGY SUPERVISION & INTERPRETATION ONE ENDOPROSTHESIS 12/23/2023 10:00 AM EST Imaging Radiology [facility] 1st [facility] [address] [place] [address] 12/30/2023 10:10 AM EST Office Visit Vascular Surgery, [facility] [address] [place] [address] Saul Crenshaw MD [address] [facility], [place] [id number] 04/12/2024 10:30 AM EST Office Visit Cardiology, [facility] [address] [place] [address] Shaquille Le, [address] [place] [address] 08/11/2024 10:20 AM EDT Office Visit Family Practice [facility] [address] [place] [address] Gabi Vinson CRNP [address] [place] [address] 11/15/2024 10:20 AM EDT Office Visit Family [facility] [address] [place] [address] Edgardo Sánchez, [address] [place] [address] Scheduled Procedures Name Priority Associated Diagnoses Date/Ti me ENDOVASCULAR INFRARENAL AORT A AND OR [id number] PROSTHESIS, INC. RADIOLOGY SUPERVISION & INTERPRETATION ONE [...] Additional history exists CKD PHOS USE SMARTSET 03626 01/15/202412/18, 06/03/2021, 04/24/2021, Additional history exists HbA1c 05/10/2024 11/11/2023, 12/18, 01/20/2022, Additional history exists O2 ASSESSMENT COMPLETED IN PAST YEAR FOR COPD 09/16/2024 09/17/2023 Depression Screening 11/10/2024 11/11/2023 TSH 11/10/2024 11/11/2023, 08/18, 01/14/2023, Additional history exists Albumin/Creatinine Ratio 11/15/2024 024, 01/16/2023, 06/03/2021, Additional history exists CKD HGB USE SMARTSET 52207 11/15/202411/15, 11/16/2023, 05/27/2023, Additional history exists DTap/Tdap Vaccines (3 - Td or Tdap) 06/09/2032 06/09/2022, 09/15/2011, 01/16/1994 VITAMIN D LEVEL ONCE IN A LIFETIME-USE SMARTSET# 81757 Completed 03/29/2012, 10/24/2008 Pneumococcal Vaccine: 65+ Years [...] this encounter Medical Devices Implanted Type Area Operations Manager Device Identifier Shelf Expiration Date Model / Serial / Lot Lens Intraoc 19.0 - [id number] - [id number] Implanted:Qty: 1 on 06/18/2021 by Gilmer Davalos MD at OR [facility] Right: Eye [employer] LOM[employer] 02/15/2026 [id number] / [id number] / [id number] documented as of this encounter Visit Diagnoses Diagnosis Abdominal aortic aneurysm (AAA) without rupture (HCC)- Primary Infrarenal abdominal aortic aneurysm (AAA) without rupture (HCC) Abdominal aortic aneurysm (AAA) without rupture (HCC) COPD, group A, by GOLD 2017 classification (HCC) 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
--- OUTSIDE RECORDS SUMMARY | 2024-04-03 21:58 | External Medical Summary | Summary of Care ---
Author Name Unknown Organization [facility] Address [address] [place] [address] Phone [phone] Care Team Providers Care Senior Power Plant Operator Name Role Phone Edgardo Sánchez DO Primary Care Provider Reason for Visit * Reason Onset Date Comments medication change 11/11/2023 Encounter Details Date Type Department Care Team (Late st Contact Info) Description 11/11/[address] [facility] [address] [facility] [phone] Edgardo Sánchez DO [address] [facility] [address] medication change Allergies Active Allergy [...] MCG/ACT Inhalation Aerosol Powder Breath Activated (umeclidinium [place])Indications :COPD, group A, by GOLD 2017 classification ([facility]) Inhale 1 Puff by mouth in the morning. 90 Each 4 Active Fluticasone-Salmete rol 500-50 MCG/ACT Inhalation Aerosol Powder Breath ActivatedIndication s:COPD, group A, by GOLD 2017 classification ([facility]) INHALE ONE PUFF BY MOUTH TWICE A DAY IN THE MORNING AND BEFORE BEDTIME 180 Each 4 Active Fluticasone-[place] rol 500-50 MCG/ACT Inhalation Aerosol Powder Breath Activated (Advair Diskus)Indications: COPD, group A, by GOLD 2017 classification ([facility]) INHALE ONE PUFF BY MOUTH TWICE A DAY IN THE MORNING AND BEFORE BEDTIME 180 Each 2 4 11/11/19 24 Discontinued Tiotropium [place] Monohydrate 18 MCG Inhalation Capsule (Spiriva HandiHaler)Indicati ons:COPD, group A, by GOLD 2017 classification ([facility]) INHALE ONE CAPSULE BY MOUTH IN THE [...] fracture 05/09/2020 Coronary artery disease invo lving [place] coronary artery of [place] heart without angina pectoris 05/09/2020 COPD, group [...] not available, please transfer to the next [facility]. Thank you, Bertha Ibarra, PharmD Clinical Pharmacist [facility] Pharmacy Services ([facility]PS) 11/17/23 8:52 AM [phone] * Telephone Encounter - Bertha Ibarra RPh - 11/11/2023 3:00 PM EDT Trelegy co-pay is very high. Called [facility] to see what is going on [...] Clinical Pharmacy Services (CCPS) 11/11/23 3:01 PM [phone] * Telephone Encounter - Edgardo Sánchez DO [...] Clinical Pharmacy Services (CCPS) 11/11/23 11:26 AM [phone] * Telephone Encounter - Trini Ya PHARM Tech - 11/11/2023 11:16 AM EDT This is not a prior auth request. This is a request for an alternative prescription. Please advise. Thanks, Trini Ya Canal Equipment Maintenance Supervisor III [facility] ([facility]) 11/11/2023,11:16 AM * Telephone Encounter - Gilma Adams PHARM Tech - 11/11/2023 11:02 AM EDT Jelena from [employer] calling to inform doctor that the patient's medication has a high copay and is requesting an alternative. Did confirm this information with the pharmacy. Pt's current insurance information is as follows: Patient name: Nitin Pickett ID number: [id number] BIN number: [id number] PCN number: [id number] Group number: [id number] Subscriber name: Nitin Pickett Primary or Secondary Insurance:Primary Medication: Tiotropium [place] Monohydrate 18 MCG Inhalation Capsule (Spiriva HandiHaler) Reason for Request: Looking for a cheaper alternative- copay for 30 day supply on Spiriva is $118.28 for brand as generic not covered Pharmacy and phone number: [facility] [phone] Rx plan and phone number: [facility] [phone] Is this a new medication for the patient? No. How did the patient obtain the medication on the lastfill? It was covered last time on this same insurance. What alternative medications does the pharmacy have in stock?: [employer] states the Incruse Ellipta 62.5 would be the cheaper alternative for the pt and that pt requests a 90 day supply sent to mail order for the alternative Thank You, Gilma Adams CPhT Canal Equipment Maintenance Supervisor II [facility] ([facility]) 11/11/2023, 11:05 AM documented in this encounter Plan of Treatment Upcoming Encounters Date Type Department Care Team (Latest Contact Info) Description 11/27/2023 7:15 AM EDT Hospital Encounter [facility], OPERATING ROOM [facility], [facility] [address] [place] [address] Saul Crenshaw MD [address] [facility] [place] [address] 11/27/2023 7:15 AM EDT - 11/27/2023 10:53 AM EDT Surgery OR [facility], OPERATING ROOM [facility] [address] [facility] [place] [address] Saul Crenshaw MD [address] [facility] [place] [address] ENDOVASCULAR INFRARENAL AORTA AND OR [id number] PROSTHESIS, INC. RADIOLOGY SUPERVISION & INTERPRETATION ONE ENDOPROSTHESIS 12/23/2023 10:00 AM EST Imaging Radiology [facility] 1st [facility] [address] [place] [address] 12/30/2023 10:10 AM EST Office Visit Vascular Surgery, [facility] [address] [place] [address] Saul Crenshaw MD [address] [facility] [place] [address] 04/12/2024 10:30 AM EST Office Visit Cardiology, [facility] [address] [place] [address] Shaquille Le, [address] [place] [address] 08/11/2024 10:20 AM EDT Office Visit Family Practice [facility] [address] [place] [address] Gabi Vinson CRNP [address] [place] [address] 11/15/2024 10:20 AM EDT Office Visit Family [facility] [address] [place] [address] Edgardo Sánchez, [address] [place] [address] Scheduled Procedures Name Priority Associated Diagnoses Date/Ti me ENDOVASCULAR INFRARENAL AORT A AND OR [id number] PROSTHESIS, INC. RADIOLOGY SUPERVISION & INTERPRETATION ONE [...] Additional history exists CKD PHOS USE SMARTSET 38042 01/15/202412/18, 06/03/2021, 04/24/2021, Additional history exists HbA1c 05/10/2024 11/11/2023, 12/18, 01/20/2022, Additional history exists O2 ASSESSMENT COMPLETED IN PAST YEAR FOR COPD 09/16/2024 09/17/2023 Depression Screening 11/10/2024 11/11/2023 TSH 11/10/2024 11/11/2023, 07/3 02/2023, 01/14/2023, Additional history exists Albumin/Creatinine Ratio 11/15/2024 024, 01/16/2023, 06/03/2021, Additional history exists CKD HGB USE SMARTSET 40238 11/15/202411/15, 11/16/2023, 05/27/2023, Additional history exists DTap/Tdap Vaccines (3 - Td or Tdap) 06/09/2032 06/09/2022, 09/15/2011, 01/16/1994 VITAMIN D LEVEL ONCE IN A LIFETIME-USE SMARTSET# 07970 Completed 03/29/2012, 10/24/2008 Pneumococcal Vaccine: 65+ Years [...] this encounter Medical Devices Implanted Type Area Medical Lab Technician Device Identifier Shelf Expiration Date Model / Serial / Lot Lens Intraoc 19.0 - [id number] - [id number] Implanted:Qty: 1 on 06/18/2021 by Gilmer Davalos MD at OR [facility] Right: Eye [employer] LOMB 02/15/2026 [id number] / [id number] / [id number] documented as of this encounter Visit Diagnoses Diagnosis Abdominal aortic aneurysm (AAA) without rupture (HCC)- Primary Infrarenal abdominal aortic aneurysm (AAA) without rupture (HCC) Abdominal aortic aneurysm (AAA) without rupture (HCC) COPD, group A, by GOLD 2017 classification (HCC)- Primary 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
--- OUTSIDE RECORDS SUMMARY | 2024-04-03 21:58 | External Medical Summary | Summary of Care ---
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); Pre-op testing; Type 2 diabetes mellitus with stage 3b chronic kidney disease, without long-term current use of insulin (HCC) Allergies Active Allergy Reactions Criticality Noted [...] MORNING 100 Tablet 3 07/21/2023 07/20/2024 Active documented as of this encounter (statuses [...] fracture 05/09/2020 Coronary artery disease invo lving [place] coronary artery of [place] heart without angina pectoris 05/09/2020 COPD, group A, by GOLD 2017 classification 11/27 Overview: Per COPD GOLD Classification History of [place] (myocardial infarction) 07/11/2016 Abdominal [...] 11/16/2023) Immunizations Name Administration Dates Next Due Diptheria/Tetanus [...] 11/27/2023 7:15 AM EDT Hospital Encounter [place] [facility], OPERATING ROOM [facility] [address] [place] [facility] [place] [phone] Saul Crenshaw MD [address] [place], [place] [phone] 11/27/2023 7:15 AM EDT - 11/27/2023 10:53 AM EDT Surgery OR [facility], OPERATING ROOM [facility] [address] [facility] [place] [phone] Saul Crenshaw MD [address] [place], [place] [phone] ENDOVASCULAR INFRARENAL AORTA AND OR [id number] PROSTHESIS, INC. RADIOLOGY SUPERVISION & INTERPRETATION ONE ENDOPROSTHESIS 12/23/2023 10:00 AM EST Imaging Radiology [facility] [address] [facility] [place] [address] 12/30/2023 10:10 AM EST Office Visit Vascular Surgery, [facility] [address] [facility] [place] [address] Saul Crenshaw MD [address] [place] [address] 04/12/2024 10:30 AM EST Office Visit Cardiology, [facility] [address] [facility] [place] [address] Shaquille Le DO 132 [facility] [place] [address] 08/11/2024 10:20 AM EDT Office Visit Family Practice [facility] [address] [place] [address] Gabi Vinson CRNP [address] [place] [address] 11/15/2024 10:20 AM EDT Office Visit [facility] [address] [place] [address] Edgardo Sánchez, [address] [place] [address] Pending Results Name Type Priority Associated Diagnoses Date /Time ALBUMIN / CREATININE RATIO, URINE Lab Routine Type 2 diabetes mellitus with stage 3b chronic kidney disease, without long-term current use of insulin (HCC) 11/16/2023 3:26 PM EDT Scheduled Procedures Name Priority Associated Diagnoses Date/Ti ms ENDOVASCULAR INFRARENAL AORT A AND OR [id number] PROSTHESIS, INC. RADIOLOGY SUPERVISION & INTERPRETATION ONE [...] Additional history exists CKD PHOS USE SMARTSET 60208 01/15/2024 11/10/2022, 06/03/2021, 04/24/2021, Additional history exists Albumin/Creatinine Ratio 01/17/2024 023, 06/03/2021, 09/13/2015, Additional history exists HbA1c 05/10/2024 11/11/2023, 12/18, 01/20/2022, Additional history exists O2 ASSESSMENT COMPLETED IN PAST YEAR FOR COPD 09/16/2024 09/17/2023 Depression Screening 11/10/2024 11/11/2023 TSH 11/10/2024 11/11/2023, 08/18, 01/14/2023, Additional history exists CKD HGB USE SMARTSET 83910 11/15/202411/15, 11/16/2023, 05/27/2023, Additional history exists DTap/Tdap Vaccines (3 - Td or Tdap) 06/09/2032 06/09/2022, 09/15/2011, 01/16/1994 VITAMIN D LEVEL ONCE IN A LIFETIME-USE SMARTSET# 88154 Completed 03/29/2012, 10/24/2008 Pneumococcal Vaccine: 65+ Years [...] this encounter Medical Devices Implanted Type Area Refrigeration Plant Cork Insulator Device Identifier Shelf Expiration Date Model / Serial / Lot Lens Intraoc 19.0 - [id number] - [id number] Implanted:Qty: 1 on 06/18/2021 by Gilmer Davalos MD at OR [facility] Right: Eye [employer] LOMB 02/15/2026 [id number] / [id number] / [id number] documented as of this encounter Procedures Procedure Name Priority Date/Time Associated Diagnosis Comments DIFFERENTIAL, AUTOMATED Routine 11/16/2023 9:44 AM EDT 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) Pre-op testing BASIC METABOLIC PANEL Routine 11/16/2023 9:44 AM EDT 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) Pre-op testing CBC Routine 11/16/2023 9:44 AM EDT 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) Pre-op testing CBC Routine 11/16/2023 9:44 AM EDT 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) Pre-op testing documented in this encounter Results * (ABNORMAL) DIFFERENTIAL, AUTOMATED (11/16/2023 9:44 AM EDT) WBC 7.59 4.00 - 10.80 K/uL 11/16/2023 10:57 AM EDT LABORATORY [place] 57-10 Neutrophils % 60.6 40.0 - 75.0 % 11/16/2023 10:57 AM EDT LAB[facility]ATORY [place] 57-10 Lymphocytes % 26.0 18.0 - 42.0 % 11/16/2023 10:57 AM EDT LAB[facility]ATORY [place] 57-10 Monocytes % 11.2(H) 1.0 - 11.0 % 11/16/2023 10:57 AM EDT LAB[facility]ATORY [place] 57-10 Eosinophils % 1.4 0.0 - 6.0 % 11/16/2023 10:57 AM EDT LAB[facility]ATORY [place] 57-10 Basophils % 0.8 0.0 - 2.0 % 11/16/2023 10:57 AM EDT LAB[facility]ATORY [place] 57-10 Absolute Neutrophils 4.60 1.80 - 7.70 K/uL 11/16/2023 10:57 AM EDT LABORATORY [place] 57-10 Absolute Lymphocytes 1.97 1.00 - 4.80 K/ul 11/16/2023 10:57 AM EDT LABORATORY [place] 57-10 Absolute Monocytes 0.85 0.00 - 1.10 K/uL 11/16/2023 10:57 AM EDT LABORATORY [place] 57-10 Absolute Eosinophils 0.11 0.00 - 0.70 K/uL 11/16/2023 10:57 AM EDT LAB[facility]ATORY [place] 57-10 Absolute Basophils 0.06 0.00 - 0.20 K/uL 11/16/2023 10:57 AM EDT LABORATORY [place] 57-10 Blood Venous blood specimen / Unknown Venipuncture / Unknown 11/16/2023 9:44 AM EDT 11/16/2023 9:48 AM EDT Thiago Briscoe PA-C LAB BLOOD [facility]ES LAB[facility]ATORY [place] [address] [place] [address] * (ABNORMAL) CBC (11/16/2023 9:44 AM EDT) WBC 7.59 4.00 - 10.80 K/uL 11/16/2023 10:57 AM EDT LABORATORY [place] 57-10 RBC 3.95 4.50 - 5.25 M/uL 11/16/2023 10:57 AM EDT LABORATORY [place] 57-10 HGB 12.1(L) 14.0 - 16.8 g/dL 11/16/2023 10:57 AM EDT LABORATORY [place] 57-10 HCT 37.9(L) 40.0 - 48.4 % 11/16/2023 10:57 AM EDT LABORATORY [place] 57-10 MCV 95.9 82.0 - 99.5 fL 11/16/2023 10:57 AM EDT LABORATORY [place] 57-10 MCH 30.6 27.0 - 34.0 pg 11/16/2023 10:57 AM EDT LABORATORY [place] 57-10 MCHC 31.9 32.0 - 36.0 g/dL 11/16/2023 10:57 AM EDT LABORATORY [place] 57-10 RDW 16.1 11.5 - 15.5 % 11/16/2023 10:57 AM EDT LABORATORY [place] 57-10 PLT 226 140 - 400 K/uL 11/16/2023 10:57 AM EDT [facility] MPV 11.6 6.6 - 11.1 fL 11/16/2023 10:57 AM EDT LABORATORY [facility] [place] 57-10 Blood Venous blood specimen / Unknown Venipuncture / Unknown 11/16/2023 9:44 AM EDT 11/16/2023 9:48 AM EDT Thiago Briscoe PA-C LAB BLOOD ORDERA BLES LAB[facility]ATORY [facility] [place] 57-10 [address] [place] [address] * (ABNORMAL) BASIC METABOLIC PANEL (11/16/2023 9:44 AM EDT) BUN 26(H) 6 - 20 mg/dL 11/16/2023 11:30 AM EDT LABORATORY [facility] [place] 57-10 CREATININE 1.5(H) 0.6 - 1.2 mg/dL 11/16/2023 11:30 AM EDT LABORATORY [facility] [place] 57-10 EGFR 44(L) >=60 mL/min 11/16/2023 11:30 AM EDT LABORATORY [facility] [place] 57-10 Comment:eGFR is calculated b ased on the CKD-EPI 2020 equation. SODIUM 141 135 - 146 mmol/L 11/16/2023 11:30 AM EDT [facility] POTASSIUM 4.2 3.5 - 5.1 mmol/L 11/16/2023 11:30 AM EDT [facility] CHLORIDE 105 98 - 107 mmol/L 11/16/2023 11:30 AM EDT LABORATORY [place] 57-10 CO2 26 22 - 32 mmol/L 11/16/2023 11:30 AM EDT [facility] ANION GAP 10 7 - 15 mmol/L 11/16/2023 11:30 AM EDT LABORATORY [place] 57-10 GLUCOSE 91 70 - 120 mg/dL 11/16/2023 11:30 AM EDT [facility] 57-10 CALCIUM 9.2 8.4 - 10.2 mg/dL 11/16/2023 11:30 AM EDT LABORATORY [place] 57-10 Blood Venous blood specimen / Unknown Venipuncture / Unknown 11/16/2023 9:44 AM EDT 11/16/2023 9:48 AM EDT Thiago Briscoe PA-C LAB BLOOD ORDERA BLES [facility]ORY [place] 57-10 [address] [place] [address] documented in this encounter Visit Diagnoses Diagnosis Abdominal aortic aneurysm (AAA) without rupture (HCC)- Primary Infrarenal abdominal aortic aneurysm (AAA) without rupture (HCC) Abdominal aortic aneurysm (AAA) without rupture (HCC) 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
--- OUTSIDE RECORDS SUMMARY | 2024-04-03 21:58 | External Medical Summary | Summary of Care ---
Author Name Unknown Organization [facility] Address [address] [place] [address] Phone [phone] Care Team Providers Care Actuarial Director Name Role Phone Edgardo Sánchez DO Primary Care Provider Reason for Visit * Reason Onset Date Comments Medication Management 11/11/2023 Encounter Details Date Type Department Care Team (Late st Contact Info) Description 11/11/2023 Telephone Family Practice [facility] [address] [facility] [place] [phone] Edgardo Sánchez DO [facility] [address] Medication Management Allergies Active Allergy Reactions Criticality Noted Date [...] group A, by GOLD 2017 classification ([facility]) INHALE ONE PUFF BY MOUTH TWICE A DAY IN THE MORNING AND BEFORE BEDTIME 180 Each 2 05/20/2023 Active Amiodarone HCl 200 MG Oral Tablet (Cordarone)Indication s:Paroxysmal atrial fibrillation (HCC) TAKE ONE TABLET BY MOUTH EVERY MORNING 100 Tablet 3 07/21/2023 07/20/2024 Active Tiotropium [place] Monohydrate 18 MCG Inhalation Capsule (Spiriva HandiHaler)Indication s:COPD, group A, by GOLD 2017 classification ([facility]) INHALE ONE CAPSULE BY MOUTH [...] kidney disease 05/25/2023 Overview: Per CKD protocol Disorder of parathyroid gland 01/06/2023 Infrarenal abdominal aortic aneurysm (AAA) witho ut rupture 12/18/2021 Iliac artery aneurysm, bilateral 12/18/2021 Type 2 diabetes mellitus wit h hemoglobin A1c goal of less than 8.0% 05/22/2021 Asymptomatic bilateral carotid artery stenosis 0 05/09/2020 Age-related osteoporosis wit hout current pathological fracture 05/09/2020 Coronary artery disease invo lving [place] coronary artery of [place] heart without angina pectoris 05/09/2020 COPD, group A, by GOLD 2017 classification 11/27 Overview: Per COPD GOLD Classification History of [place] (myocardial infarction) 07/11/2016 Abdominal aortic aneurysm (AAA) [...] encounter Miscellaneous Notes * Telephone Encounter - Debi Holland CPhT - 11/11/2023 10:58 AM EDT Pharmacy calling in regarding a medication last prescribed by PCP office, transferring caller to Medication Refill Line for further assistance. Thank You, Debi Holland CPhT Drivers' Cash Clerk III Centralized Clinical Pharmacy Services (CCPS) documented in this encounter Plan of Treatment Upcoming Encounters Date Type Department Care Team (Latest Contact Info) Description 11/16/2023 10:00 AM EDT Laboratory Laboratory, [address] [address] [facility] [address] [place] [address] 11/27/2023 7:15 AM EDT Hospital Encounter OR [facility], OPERATING ROOM [facility] [address] [place] [phone] Saul Crenshaw MD [address] [place], [place] [phone] 11/27/2023 7:15 AM EDT - 11/27/2023 10:53 AM EDT Surgery OR [facility], OPERATING ROOM [facility] [address] [facility] [place] [phone] Saul Crenshaw MD [address] [place] [address] ENDOVASCULAR INFRARENAL AORTA AND OR [id number] PROSTHESIS, INC. RADIOLOGY SUPERVISION & INTERPRETATION ONE ENDOPROSTHESIS 12/23/2023 10:00 AM EST Imaging Radiology [address] [place] [address] 12/30/2023 10:10 AM EST Office Visit Vascular Surgery, [facility] [address] [address] Saul Crenshaw MD [address] [facility] [place] [address] 04/12/2024 10:30 AM EST Office Visit Cardiology, [facility] [address] [address] Shaquille Le, DO [address] [place] [address] 08/11/2024 10:20 AM EDT Office Visit Family [facility] [address] [address] Gabi Vinson CRNP [address] [place] [address] 11/15/2024 10:20 AM EDT Office Visit [facility] [address] [address] Edgardo Sánchez, DO [address] [place] [address] Scheduled Procedures Name Priority Associated Diagnoses Date/Ti id ENDOVASCULAR INFRARENAL AORT A AND OR [id number] PROSTHESIS, INC. RADIOLOGY SUPERVISION & INTERPRETATION ONE [...] Foot Exam 06/04/2023 06/03/2022 HbA1c 07/15/2023 01/14/2023, 12/06/2021, 06/03/2021, Additional history exists COVID-19 Vaccine ( season) 2023 Influenza Vaccine (FLU shot) (#1) 2023 11/16/2022, 11/09/2021, 11/19/2020, Additional history exists CKD PHOS USE SMARTSET 04808 01/15/202412/18, 06/03/2021, 04/24/2021, Additional history exists Albumin/Creatinine Ratio 01/17/2024 023, 06/03/2021, 09/13/2015, Additional history exists CKD HGB USE SMARTSET 58076 05/26/202405/26, 05/27/2023, 01/14/2023, Additional history exists TSH 09/15/2024 09/16/2023, 12/18, 12/09/2021, Additional history exists O2 ASSESSMENT COMPLETED IN PAST YEAR FOR COPD 09/16/2024 09/17/2023 Depression Screening 11/10/2024 11/11/2023, 06/04/19 23 DTap/Tdap Vaccines (3 - Td or Tdap) 06/09/2032 06/09/2022, 09/15/2011, 01/16/1994 VITAMIN D LEVEL ONCE IN A LIFETIME-USE SMARTSET# 03041 Completed 03/29/2012, 10/24/2008 Pneumococcal Vaccine: 65+ Years [...] this encounter Medical Devices Implanted Type Area Cyberathlete Device Identifier Shelf Expiration Date Model / Serial / Lot Lens Intraoc 19.0 - [id number] - [id number] Implanted:Qty: 1 on 06/18/2021 by Gilmer Davalos MD at [facility] Right: Eye [employer]OM[employer] 02/15/2026 [id number] / [id number] / [id number] documented as of this encounter Care Teams Actuarial Director Relationship Specialty Start Date End Date Edgardo Sánchez DO [address] [place] [address] PCP - General Family Medicine 03/09/19 documented as of this encounter
--- OUTSIDE RECORDS SUMMARY | 2024-04-03 21:58 | External Medical Summary ---
Author Name Unknown Address Unknown Organization K01:LAB[facility]ATORY [facility] - [address] [facility] [address] Laboratory Report Ordering Provider Test Date Status MALORIEVANCE 11/11/2023 11:20:46 Final Observation Date Value Abnormality Reference (Units ) Status TSH 11/11/2023 11:20:46 0.78 0.27-4.20 (uIU/mL) Final Performing Location [facility] - [address] [facility] [address]
--- OUTSIDE RECORDS SUMMARY | 2024-04-03 21:58 | External Medical Summary | Summary of Care ---
Author Name Unknown Organization [facility] Address [address] [place] [address] Phone [phone] Care Team Providers Care Band Saw Operator Name Role Phone Efra Sánchezkeiko Marshallmariel Primary Care Provider Reason for Visit * Reason Comments Outpatient Testing Encounter Details Date Type Department Care Team (Late st Contact Info) Description 11/11/2023 11:20 AM EDT Laboratory Laboratory, [facility] [address] [place] [address] [facility] [address] [place] [address] DYSLIPIDEMIA, GOAL LDL BELOW 100; Type 2 diabetes mellitus with stage 3b chronic kidney disease, without long-term current use of insulin ([facility]); Hypothyroidism due to medication Allergies Active Allergy Reactions Criticality Noted Date [...] group A, by GOLD 2017 classification ([facility]) INHALE ONE PUFF BY MOUTH TWICE A DAY IN THE MORNING AND BEFORE BEDTIME 180 Each 2 05/20/2023 Active Amiodarone HCl 200 MG Oral Tablet (Cordarone)Indication s:Paroxysmal atrial fibrillation (HCC) TAKE ONE TABLET BY MOUTH EVERY MORNING 100 Tablet 3 07/21/2023 07/20/2024 Active Tiotropium Gould Monohydrate 18 MCG Inhalation Capsule (Spiriva HandiHaler)Indication s:COPD, group A, by GOLD 2017 classification ([facility]) INHALE ONE CAPSULE BY MOUTH IN [...] of [place] heart without angina pectoris 05/09/2020 COPD, group A, by GOLD 2017 classification 11/27 Overview: Per COPD GOLD Classification History of [place] (myocardial infarction) 07/11/2016 Abdominal [...] Description 11/16/2023 10:00 AM EDT Laboratory Laboratory, [facility] [address] [facility] [place] [phone] [facility] [address] [facility] [place] [address] 11/27/2023 7:15 AM EDT Hospital Encounter [place] [facility] [facility] [place] [address] [place] [phone] Saul Crenshaw MD [address], [place] [id number] 11/27/2023 7:15 AM EDT - 11/27/2023 10:53 AM EDT Surgery OR [facility] [place] [address] [facility] [place] [phone] Saul Crenshaw MD [address], [place] [id number] ENDOVASCULAR INFRARENAL AORTA AND OR [id number] PROSTHES[facility] INC[facility] RADIOLOGY SUPERVISION & INTERPRETATION ONE ENDOPROSTHESIS 12/23/2023 10:00 AM EST Imaging Radiology [facility]st [facility] [address] [facility] [place] [address] 12/30/2023 10:10 AM EST Office Visit Vascular Surgery, [facility] [address] [facility] [place] [address] Saul Crenshaw MD [address] [facility] [place] [address] 04/12/2024 10:30 AM EST Office Visit Cardiology, [facility] [address] [place] [address] Shaquille Le, DO [address] [place] [address] 08/11/2024 10:20 AM EDT Office Visit [facility] [address] [place] [address] Gabi Vinson CRNP [address] [place] [address] 11/15/2024 10:20 AM EDT Office Visit [facility] [address] [place] [address] Edgardo Sánchez, DO [address] [place] [address] Pending Results Name Type Priority Associated Diagnoses [...] to medication 11/11/2023 11:20 AM EDT Scheduled Procedures Name Priority Associated Diagnoses Date/Ti me ENDOVASCULAR INFRARENAL AORT A AND OR [id number] PROSTHESIS[facility] RADIOLOGY SUPERVISION & INTERPRETATION ONE [...] Additional history exists CKD PHOS USE SMARTSET 69067 01/15/202412/18, 06/03/2021, 04/24/2021, Additional history exists Albumin/Creatinine Ratio 01/17/2024 023, 06/03/2021, 09/13/2015, Additional history exists CKD HGB USE SMARTSET 87489 05/26/202405/26, 05/27/2023, 01/14/2023, Additional history exists TSH 09/15/2024 09/16/2023, 12/18, 12/09/2021, Additional history exists O2 ASSESSMENT COMPLETED IN PAST YEAR FOR COPD 09/16/2024 09/17/2023 Depression Screening 11/10/2024 11/11/2023 DTap/Tdap Vaccines (3 - Td or Tdap) 06/09/2032 06/09/2022, 09/15/2011, 01/16/1994 VITAMIN D LEVEL ONCE IN A LIFETIME-USE SMARTSET# [id number] Completed 03/29/2012, 10/24/2008 Pneumococcal Vaccine: 65+ Years [...] this encounter Medical Devices Implanted Type Area Shot Examiner Device Identifier Shelf Expiration Date Model / Serial / Lot Lens Intraoc 19.0 - [id number] - [id number] Implanted:Qty: 1 on 06/18/2021 by Gilmer Davalos MD at [facility] Right: Eye [employer] 02/15/2026 [id number] / [id number] / [id number] documented as of this encounter Visit Diagnoses Diagnosis Abdominal aortic aneurysm (AAA) without rupture (HCC)- Primary Infrarenal abdominal aortic aneurysm (AAA) without rupture (HCC) Abdominal aortic aneurysm (AAA) without rupture (HCC) DYSLIPIDEMIA, GOAL LDL BELOW 100 Other and unspecified hyperlipidemia Type 2 diabetes mellitus with stage 3b chronic kidney disease, 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
--- OUTSIDE RECORDS SUMMARY | 2024-04-03 21:58 | External Medical Summary | Summary of Care ---
Author Name Unknown Organization [facility] Address [address] [place] [address] Phone [phone] Care Team Providers Care Population Geneticist Name Role Phone SánchezEdgardomariel Primary Care Provider Reason for Visit * Reason Comments Outpatient Testing Encounter Details Date Type Department Care Team (Late st Contact Info) Description 11/16/2023 10:00 AM EDT Laboratory Laboratory, [facility] [address] [place] [address] [facility] [address] [place] [address] Juxtarenal abdominal aortic aneurysm (AAA) [...] fracture 05/09/2020 Coronary artery disease invo lving [place] coronary artery of [place] heart without angina pectoris 05/09/2020 COPD, group [...] EDT Hospital Encounter OR [facility], OPERATING ROOM [facility] [address] [place] [phone] Saul Crenshaw MD [address] [place] [facility] [address] 11/27/2023 7:15 AM EDT - 11/27/2023 10:53 AM EDT Surgery OR [facility], OPERATING ROOM [facility] [address] [place] [phone] Saul Crenshaw MD [address] [place] [address] ENDOVASCULAR INFRARENAL AORTA AND OR [id number] PROSTHESIS, INC. RADIOLOGY SUPERVISION & INTERPRETATION ONE ENDOPROSTHESIS 12/23/2023 10:00 AM EST Imaging Radiology [address] [facility] [address] 12/30/2023 10:10 AM EST Office Visit Vascular Surgery, [facility] [address] [place] [address] Saul Crenshaw MD [address] [place] [address] 04/12/2024 10:30 AM EST Office Visit Cardiology, [facility] [address] [place] [address] Shaquille Le, [address] [place] [address] 08/11/2024 10:20 AM EDT Office Visit Family Practice [facility] [address] [place] [address] Gabi Vinson CRNP [address] [place] [address] 11/15/2024 10:20 AM EDT Office Visit Family Practice [facility] [address] [place] [address] Edgardo Sánchez, DO [address] [place] [address] Pending Results Name Type Priority Associated Diagnoses Date /Time BASIC METABOLIC PANEL Lab Routine 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) Pre-op testing 11/16/2023 9:44 AM EDT CBC WITH WBC DIFFERENTIAL Lab Routine 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) Pre-op testing 11/16/2023 9:44 AM EDT CBC Lab Routine 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) Pre-op testing 11/16/2023 9:44 AM EDT DIFFERENTIAL, AUTOMATED Lab Routine 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) Pre-op testing 11/16/2023 9:44 AM EDT Scheduled Procedures Name Priority Associated Diagnoses Date/Ti ks ENDOVASCULAR INFRARENAL AORT A AND OR [id number] PROSTHESIS, INC. RADIOLOGY SUPERVISION & INTERPRETATION ONE [...] Additional history exists CKD PHOS USE SMARTSET 79282 01/15/2024 11/2 10/2022, 06/03/2021, 04/24/2021, Additional history exists Albumin/Creatinine Ratio 01/17/2024 023, 06/03/2021, 09/13/2015, Additional history exists HbA1c 05/10/2024 11/11/2023, 12/18, 01/20/2022, Additional history exists CKD HGB USE SMARTSET 75432 05/26/202405/26, 05/27/2023, 01/14/2023, Additional history exists O2 ASSESSMENT COMPLETED IN PAST YEAR FOR COPD 09/16/2024 09/17/2023 Depression Screening 11/10/2024 11/11/2023 TSH 11/10/2024 11/11/2023, 08/18, 01/14/2023, Additional history exists DTap/Tdap Vaccines (3 - Td or Tdap) 06/09/2032 06/09/2022, 09/15/2011, 01/16/1994 VITAMIN D LEVEL ONCE IN A LIFETIME-USE SMARTSET# [id number] Completed 03/29/2012, 10/24/2008 Pneumococcal Vaccine: 65+ Years [...] this encounter Medical Devices Implanted Type Area Desktop Specialist Device Identifier Shelf Expiration Date Model / Serial / Lot Lens Intraoc 19.0 - [id number] - [id number] Implanted:Qty: 1 on 06/18/2021 by Gilmer Davalos MD at [facility] Right: Eye [employer] 02/15/2026 [id number] / [id number] / [id number] documented as of this encounter Visit Diagnoses [...] (HCC) documented in this encounter Care Teams Population Geneticist Relationship Specialty Start Date End Date Edgardo Sánchez DO [address] [place] [address] PCP - General Family Medicine 03/09/19 documented as of this encounter
[2024-04-03 22:05] LABS: Base Excess VBG 0.5 mEq/L; HCO3 VBG 25 mmol/L; Oxygen Saturation VBG 68.9 %; PCO2 VBG 41 mmHg (38-50); PO2 VBG 41 mmHg
[2024-04-03] MEDS: ALBUT/IPRATROP 3MG/0.5MG NEB 3 ML VIAL NEB STA (22:09)
[2024-04-03] MEDS: methylPREDNISolone 125 MG/2 ML VIAL IV STA (22:09)
[2024-04-03 22:19] LABS: Basophils # (auto) 0.03 K/uL (0.00-0.20); Basophils % (auto) 0.4 %; Eosinophils # (auto) 0.01 K/uL (0.00-0.50); Eosinophils % (auto) 0.1 %; Hematocrit (blood only) 36.1 % (42.0-52.0); Hemoglobin 11.8 g/dl (14.0-18.0); Immature Granulocytes # (auto) 0.02 K/uL (0.01-0.20); Immature Granulocytes % (auto) 0.3 %; Lymphocytes # (auto) 0.89 K/uL (1.20-3.40); Lymphocytes % (auto) 11.8 %; Mean Corpuscular Hemoglobin 29.4 pg (25.0-34.0); Mean Corpuscular Hgb Conc 32.7 g/dL (32.0-36.0); Mean Corpuscular Volume 89.8 fL (80.0-100.0); Mean Platelet Volume 11.3 fL (9.4-12.4); Monocytes # (auto) 0.92 K/uL (0.11-0.59); Monocytes % (auto) 12.2 %; Neutrophils # (auto) 5.68 K/uL (1.40-6.50); Neutrophils % (auto) 75.2 %; Platelet Count 187 K/uL (130-400); RDW Coefficient of Variation 16.2 % (11.5-14.5); RDW Standard Deviation 53.2 fL (36.4-46.3); Red Blood Count 4.02 M/uL (4.70-6.10); White Blood Count 7.55 K/ul (4.8-10.8)
[2024-04-03 22:28] LABS: Albumin Globulin Ratio 1.3 (0.9-2); Albumin Level 3.9 gm/dl (3.4-5.0); Bilirubin,Total 0.9 mg/dl (0.2-1.0); Calcium 9.3 mg/dl (8.6-10.3); Creatinine Clr Calc Pharmacy 28.4 ml/min; Potassium 4.1 mmol/L (3.5-5.1); Total Protein 6.9 gm/dl (6.0-8.3)
[2024-04-03 22:43] LABS: Thyroid Stimulating Hormone 0.319 uIu/ml (0.300-4.500)
[2024-04-03 22:47] LABS: Troponin I High Sensitivity 52.7 pg/ml (0-20)
[2024-04-03 23:02] LABS: Adenovirus PCR Not Detected (NotDetected); Bordetella parapertussis PCR Not Detected (NotDetected); Bordetella pertussis PCR Not Detected (NotDetected); Chlamydia pneumoniae PCR Not Detected (NotDetected); Coronavirus 229E PCR Not Detected (NotDetected); Coronavirus CoV-2 (COVID19)PCR Not Detected (NotDetected); Coronavirus HKU1 PCR Not Detected (NotDetected); Coronavirus NL63 PCR Not Detected (NotDetected); Coronavirus OC43PCR DETECTED (NotDetected); Human Metapneumovirus PCR Not Detected (NotDetected); Influenza A PCR Not Detected (NotDetected); Influenza B PCR Not Detected (NotDetected); Mycoplasma pneumoniae PCR Not Detected (NotDetected); Parainfluenza Virus 1 PCR Not Detected (NotDetected); Parainfluenza Virus 2 PCR Not Detected (NotDetected); Parainfluenza Virus 3 PCR Not Detected (NotDetected); Parainfluenza Virus 4 PCR Not Detected (NotDetected); Respiratory Syncytial VirusPCR Not Detected (NotDetected); Rhinovirus/Enterovirus PCR Not Detected (NotDetected)
--- NOTE | 2024-04-03 23:09 | XRay Report ---
Exam(s): XR CXR 1 VIEW EXAM: XR Chest, 1 View CLINICAL HISTORY: Reason for exam: weakness. TECHNIQUE: Frontal view of the chest. COMPARISON: January 17, 2007 FINDINGS: Lungs: Scarring in the right lung apex, similar to previous. There are surgical clips in the right hilar region with volume loss consistent with previous partial right pneumonectomy, similar to previous. No new infiltrate identified. Pleural space: Unremarkable. No pneumothorax. Heart: Mild cardiomegaly. Mediastinum: Unremarkable. Normal mediastinal contour. Bones/joints: Mild degenerative changes in the spine. No acute fracture. Vasculature: The aortic arch is calcified and tortuous, increased since previous. Upper abdomen: Unremarkable as visualized. No pneumoperitoneum is seen under the diaphragm. IMPRESSION: 1. Mild cardiomegaly. 2. The aortic arch is calcified and tortuous, increased since previous. 3. Scarring in the right lung apex, similar to previous. There are surgical clips in the right hilar region with volume loss consistent with previous partial right pneumonectomy, similar to previous. No new infiltrate identified. Electronically signed by: Tariq Bryan MD 04/03/24 23:08 PM
--- NOTE | 2024-04-03 23:25 | CT Scan Report ---
Exam(s): CT HEAD Without Contrast EXAM: CT Head Without Intravenous Contrast CLINICAL HISTORY: Reason for exam: fall. TECHNIQUE: Axial computed tomography images of the head/brain without intravenous contrast. CTDI is 37.61 mGy and DLP is 546.36 mGy-cm. Automated exposure control was utilized for the study. A dose lowering technique was utilized adhering to the principles of ALARA. COMPARISON: December 17, 2022 FINDINGS: Brain: Mild cerebral atrophy and periventricular white matter low density consistent with chronic small vessel disease and/or senescent changes, similar to previous. No acute large vessel infarct or intracranial hemorrhage is seen. Ventricles: Mildly prominent. No mass or hemorrhage. Bones/joints: Unremarkable. No acute fracture. Soft tissues: Unremarkable. Sinuses: Unremarkable as visualized. No acute sinusitis. Mastoid air cells: Unremarkable as visualized. No mastoid effusion. IMPRESSION: Mild cerebral atrophy and periventricular white matter low density consistent with chronic small vessel disease and/or senescent changes, similar to previous. No acute large vessel infarct or intracranial hemorrhage is seen. Electronically signed by: Tariq Bryan MD 04/03/24 23:24 PM
--- NOTE | 2024-04-03 23:26 | CT Scan Report ---
Exam(s): CT C SPINE EXAM: CT Cervical Spine Without Intravenous Contrast CLINICAL HISTORY: Reason for exam: fall. TECHNIQUE: Axial computed tomography images of the cervical spine without intravenous contrast. CTDI is 23.72 mGy and DLP is 507.36 mGy-cm. Automated exposure control was utilized for the study. A dose lowering technique was utilized adhering to the principles of ALARA. COMPARISON: No relevant prior studies available. FINDINGS: Vertebrae: Mild narrowing and osteophytosis of the atlantodental joint. The odontoid process is intact. No acute fracture. Soft tissues: Severe calcification of the left carotid bifurcation. Scarring in the right lung apex. . DISCS/SPINAL CANAL/NEURAL FORAMINA: C2-C3: Mild degenerative disc disease. No stenosis. C3-C4: Mild degenerative disc disease. No stenosis. C4-C5: Moderate degenerative disc disease. No stenosis. C5-C6: Moderate degenerative disc disease. No stenosis. C6-C7: Moderate degenerative disc disease. No stenosis. C7-T1: Mild degenerative disc disease. No stenosis. 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 No acute fracture or subluxation is seen. Electronically signed by: Tariq Bryan MD 04/03/24 23:25 PM
--- NOTE | 2024-04-03 23:39 | Emergency Department Note ---
History of Present Illness General Chief complaint: Fall Stated complaint: FALLS, DOESNT FEEL LIKE HIMSELF Time Seen by Provider: 04/03/24 21:48 History of Present Illness This 88-year-old male who recently had his abdominal aortic reason repaired presents ER for frequent falls and shortness of breath and coughing for the past few days. He does have COPD. Patient denies chest pain, abdominal pain, back pain, numbness, tingling, localized weakness. Home Medications Medication Instructions Recorded Confirmed Type amiodarone 200 mg tablet (Pacerone) 200 mg PO DAILY 12/15/19 12/17/22 History atorvastatin 80 mg tablet (Lipitor) 80 mg PO DAILY 12/15/19 12/17/22 History cholecalciferol (vitamin D3) 25 25 mcg PO DAILY 12/15/19 12/17/22 History mcg (1,000 unit) tablet (Vitamin D3) levothyroxine 100 mcg tablet 100 mcg PO DAILY 12/15/19 12/17/22 History fluticasone 500 mcg-salmeterol 50 1 inh inhalation BID 12/17/22 12/17/22 History mcg/dose blistr powdr for inhalation furosemide 20 mg tablet 20 mg PO DAILY 12/17/22 12/17/22 History lisinopril 10 mg tablet 10 mg PO DAILY 12/17/22 12/17/22 History oxycodone 5 mg tablet 2.5 mg (1/2 x 5 mg) PO Q6H PRN 12/17/22 Rx pain #12 tabs tiotropium bromide 18 mcg capsule 18 mcg inhalation DAILY 12/17/22 12/17/22 History with inhalation device (Spiriva with HandiHaler) Allergies Allergy/AdvReac Type Severity Reaction Status Date / Time No Known Allergies Allergy Verified 01/11/20 13:34 TAPE - USE PAPER TAPE Allergy Unknown Unknown Uncoded 01/11/20 13:34 Past Med/Surg History Problem List (Updated 04/03/24 @ 23:39 by Bri Torres PA-C) Frequent falls (Acute) Myocardial infarction type 2 (Acute) Coronavirus infection (Acute) Acute exacerbation of chronic obstructive pulmonary disease (Acute) Traumatic wound (Acute) Medical History CHF (congestive heart failure) COPD (chronic obstructive pulmonary disease) HTN (hypertension), benign Hypothyroidism Surgical History H/O parathyroidectomy History of lung surgery Social History Smoking Status: Never smoker Hx Alcohol Use: Yes Alcohol type: beer Alcohol type Comment: rarely Hx Substance Use: No Preferred Language: Barbadian Communication Ability: Effective Visual Impairment: Limited Hearing Ability: Normal Powerhouse Attendant Required: No Beliefs That Will Affect Care: None marital status: / Current Living Situation: Alone current occupational status: retired Feels Safe at Home: Yes Review of Systems A total of 10 systems reviewed and were otherwise negative Physical Exam Vital Signs Vital Signs - 24 hr 04/03/24 21:56 04/03/24 21:56 04/03/24 22:00 Temperature 36.8 C Temperature Source Oral Pulse Rate 73 74 75 Pulse Rate [Apical] Pulse Rhythm Regular Regular Pulse Strength Normal Respiratory Rate 17 Respiratory Effort / Characteristics Non-Labored Spontaneous Respiratory Depth Normal Respiratory Pattern Regular Blood Pressure 185/96 H Blood Pressure [Left Arm] Blood Pressure Mean 125 Blood Pressure Mean [Left Arm] Blood Pressure Position Sitting Pulse Oximetry 92 92 Oxygen Delivery Method Room Air Room Air Oxygen Flow Rate Sepsis Recent Fever Within 48 Hours No Sepsis New/Unexplained Change in Mental Status No Sepsis Action Taken by Nursing No Action Required 04/03/24 23:30 04/04/24 00:00 04/04/24 00:30 Temperature Temperature Source Pulse Rate Pulse Rate [Apical] 73 72 73 Pulse Rhythm Pulse Strength Respiratory Rate 20 18 20 Respiratory Effort / Characteristics Respiratory Depth Respiratory Pattern Blood Pressure Blood Pressure [Left Arm] 163/85 H 166/86 H 152/78 H Blood Pressure Mean Blood Pressure Mean [Left Arm] 111 112 102 Blood Pressure Position Pulse Oximetry 98 97 95 Oxygen Delivery Method Nasal Cannula Nasal Cannula Nasal Cannula Oxygen Flow Rate 2 2 2 Sepsis Recent Fever Within 48 Hours Sepsis New/Unexplained Change in Mental Status Sepsis Action Taken by Nursing 04/04/24 01:00 Temperature Temperature Source Pulse Rate Pulse Rate [Apical] 72 Pulse Rhythm Pulse Strength Respiratory Rate 18 Respiratory Effort / Characteristics Respiratory Depth Respiratory Pattern Blood Pressure Blood Pressure [Left Arm] 141/74 H Blood Pressure Mean Blood Pressure Mean [Left Arm] 96 Blood Pressure Position Pulse Oximetry 95 Oxygen Delivery Method Nasal Cannula Oxygen Flow Rate 2 Sepsis Recent Fever Within 48 Hours Sepsis New/Unexplained Change in Mental Status Sepsis Action Taken by Nursing VITALS: Vitals are noted on the nurse's note and reviewed by myself. Vital signs pulse ox 90% on room air GENERAL: Pleasant gentleman coughing who appears short of breath, in no acute distress, nondiaphoretic, well-developed well-nourished. SKIN: The skin was without rashes, erythema, edema, or bruising. There is no tenting of the skin. Capillary reflex less than 2 seconds. HEAD: Normocephalic atraumatic. EARS: External auditory canals clear EYES: Pupils equal round and reactive to light and accommodation. Conjunctivae without injection, sclerae without icterus. Extraocular movements intact. NOSE: Patent, no discharge. MOUTH: Mucous membranes moist. Pharynx without erythema or exudate. Uvula midline. Airway patent. Tongue does not deviate. NECK: Supple without nuchal rigidity. No lymphadenopathy. No thyromegaly. Cervical spine is nontender. No JVD. HEART: Regular rate and rhythm LUNGS: Diffuse inspiratory and end expiratory wheezes, No retractions or accessory muscle use. ABDOMEN: Positive bowel sounds x 4. Normal tympanic percussion. Soft, nontender, without masses or organomegaly. Du sign negative. No guarding or rebound tenderness. No CVA tenderness MUSCULOSKELETAL: No muscle atrophy, erythema, or edema noted. NEURO: Patient was alert and oriented to person place and time. Normal sensation to light and sharp touch. No focal neurological deficits. Course Administered Medications Discontinued Medications Albuterol (Albut/Ipratrop 3mg/0.5mg Neb 3 Ml Vial) 3 ml NEB NOW STA; Protocol Stop: 04/03/24 21:57 Last Admin: 04/03/24 22:09 Dose: 3 ml Documented By: MARTA Piperacillin Sod/Tazobactam Sod (Zosyn) 4.5 gm in 100 mls @ 200 mls/hr IV NOW ONE; Protocol Stop: 04/03/24 23:46 Last Infusion: 04/04/24 00:39 Dose: Infused Documented By: Admin: 04/04/24 00:01 Dose: 200 mls/hr Documented By: KAT Sodium Chloride (Nss) 500 mls @ 999 mls/hr IV .Q31M ONE Stop: 04/03/24 23:47 Last Infusion: 04/04/24 00:39 Dose: Infused Documented By: Admin: 04/04/24 00:01 Dose: 999 mls/hr Documented By: KAT Ioversol (Optiray 320 125ml) 125 ml IV ONCE ONE Stop: 04/04/24 00:01 Last Admin: 04/04/24 00:00 Dose: 118 ml Documented By: DAKOTA Methylprednisolone (Methylprednisolone 125 Mg/2 Ml Vial) 125 mg IV NOW STA Stop: 04/03/24 21:57 Last Admin: 04/03/24 22:09 Dose: 125 mg Documented By: MARTA Medical Decision Making Medical Records Attestation: I reviewed the patient's medical records. Home Medications Current Medication List: was personally reviewed by me Laboratory Data Attestation: I reviewed the patient's lab results. 04/03/24 21:54 04/03/24 21:54 Lab Results 04/03/24 04/03/24 Range/Units 21:54 23:35 WBC 7.55 (4.8-10.8) K/ul RBC 4.02 L (4.70-6.10) M/uL Hgb 11.8 L (14.0-18.0) g/dl Hct 36.1 L (42.0-52.0) % MCV 89.8 (80.0-100.0) fL MCH 29.4 (25.0-34.0) pg MCHC 32.7 (32.0-36.0) g/dL RDW Std Deviation 53.2 H (36.4-46.3) fL RDW Coeff of Rios 16.2 H (11.5-14.5) % Plt Count 187 (130-400) K/uL MPV 11.3 (9.4-12.4) fL Immature Gran % (Auto) 0.3 % Neut % (Auto) 75.2 % Lymph % (Auto) 11.8 % Collin % (Auto) 12.2 % Eos % (Auto) 0.1 % Baso % (Auto) 0.4 % Neut # (Auto) 5.68 (1.40-6.50) K/uL Lymph # (Auto) 0.89 L (1.20-3.40) K/uL Collin # (Auto) 0.92 H (0.11-0.59) K/uL Eos # (Auto) 0.01 (0.00-0.50) K/uL Baso # (Auto) 0.03 (0.00-0.20) K/uL Immature Gran # (Auto) 0.02 (0.01-0.20) K/uL VBG pH 7.40 (7.36-7.41) VBG pCO2 41 (38-50) mmHg VBG pO2 41 mmHg VBG HCO3 25 mmol/L VBG O2 Saturation 68.9 % VBG Base Excess 0.5 mEq/L Sodium 138 (136-145) mmol/L Potassium 4.1 (3.5-5.1) mmol/L Chloride 104 (98-107) mmol/L Carbon Dioxide 25 (21-32) mmol/L Anion Gap 9 (3-11) BUN 41 H (6-23) mg/dl Creatinine 1.95 H (0.6-1.4) mg/dl Est Cr Clr Drug Dosing 28.4 ml/min eGFR 32.69 BUN/Creatinine Ratio 21.0 H (10-20) Glucose 119 H (70-99(Fasting)) mg/dl Lactate 0.9 (0.4-2.0) mmol/L Calcium 9.3 (8.6-10.3) mg/dl Magnesium 2.0 (1.7-2.4) mg/dl Total Bilirubin 0.9 (0.2-1.0) mg/dl AST 36 (13-39) U/L ALT 21 (7-52) U/L Alkaline Phosphatase 58 (34-104) U/L Total Creatine Kinase 261 H (30-223) U/L Troponin I High Sens 52.7 H* 61.3 H* (0-20) pg/ml B-Natriuretic Peptide 238 H (0-100) pg/ml Total Protein 6.9 (6.0-8.3) gm/dl Albumin 3.9 (3.4-5.0) gm/dl Globulin 3.0 (2.5-4.0) gm/dl Albumin/Globulin Ratio 1.3 (0.9-2) TSH 0.319 (0.300-4.500) uIu/ml Adenovirus (PCR) Not Detected (NotDetected) B. pertussis DNA (PCR) Not Detected (NotDetected) B.parapertussis DNA PCR Not Detected (NotDetected) C. pneumoniae DNA (PCR) Not Detected (NotDetected) Coronavirus OC43 (PCR) DETECTED A (NotDetected) Coronavirus HKU1 (PCR) Not Detected (NotDetected) Coronavirus 229E (PCR) Not Detected (NotDetected) SARS-CoV-2 (PCR) Not Detected (NotDetected) Coronavirus NL63 (PCR) Not Detected (NotDetected) Human Metapneumovir PCR Not Detected (NotDetected) Influenza Type A (PCR) Not Detected (NotDetected) Influenza Type B (PCR) Not Detected (NotDetected) M. pneumoniae (PCR) Not Detected (NotDetected) Parainfluenza 1 (PCR) Not Detected (NotDetected) Parainfluenza 2 (PCR) Not Detected (NotDetected) Parainfluenza 3 (PCR) Not Detected (NotDetected) Parainfluenza 4 (PCR) Not Detected (NotDetected) RSV (PCR) Not Detected (NotDetected) Entero/Rhino (PCR) Not Detected (NotDetected) Imaging Data Attestation: I personally reviewed and interpreted this imaging study as follows: Radiologist's Impression: Cervical Spine CT 04/03/24 21:56 Exam(s): CT C SPINE EXAM: CT Cervical Spine Without Intravenous Contrast CLINICAL HISTORY: Reason for exam: fall. TECHNIQUE: Axial computed tomography images of the cervical spine without intravenous contrast. CTDI is 23.72 mGy and DLP is 507.36 mGy-cm. Automated exposure control was utilized for the study. A dose lowering technique was utilized adhering to the principles of ALARA. COMPARISON: No relevant prior studies available. FINDINGS: Vertebrae: Mild narrowing and osteophytosis of the atlantodental joint. The odontoid process is intact. No acute fracture. Soft tissues: Severe calcification of the left carotid bifurcation. Scarring in the right lung apex. . DISCS/SPINAL CANAL/NEURAL FORAMINA: C2-C3: Mild degenerative disc disease. No stenosis. C3-C4: Mild degenerative disc disease. No stenosis. C4-C5: Moderate degenerative disc disease. No stenosis. C5-C6: Moderate degenerative disc disease. No stenosis. C6-C7: Moderate degenerative disc disease. No stenosis. C7-T1: Mild degenerative disc disease. No stenosis. 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 No acute fracture or subluxation is seen. Electronically signed by: Tariq Bryan MD 04/03/24 23:25 PM Chest X-Ray 04/03/24 21:56 Exam(s): XR CXR 1 VIEW EXAM: XR Chest, 1 View CLINICAL HISTORY: Reason for exam: weakness. TECHNIQUE: Frontal view of the chest. COMPARISON: January 17, 2007 FINDINGS: Lungs: Scarring in the right lung apex, similar to previous. There are surgical clips in the right hilar region with volume loss consistent with previous partial right pneumonectomy, similar to previous. No new infiltrate identified. Pleural space: Unremarkable. No pneumothorax. Heart: Mild cardiomegaly. Mediastinum: Unremarkable. Normal mediastinal contour. Bones/joints: Mild degenerative changes in the spine. No acute fracture. Vasculature: The aortic arch is calcified and tortuous, increased since previous. Upper abdomen: Unremarkable as visualized. No pneumoperitoneum is seen under the diaphragm. IMPRESSION: 1. Mild cardiomegaly. 2. The aortic arch is calcified and tortuous, increased since previous. 3. Scarring in the right lung apex, similar to previous. There are surgical clips in the right hilar region with volume loss consistent with previous partial right pneumonectomy, similar to previous. No new infiltrate identified. Electronically signed by: Tariq Bryan MD 04/03/24 23:[address] 04/03/24 21:56 Exam(s): CT HEAD Without Contrast EXAM: CT Head Without Intravenous Contrast CLINICAL HISTORY: Reason for exam: fall. TECHNIQUE: Axial computed tomography images of the head/brain without intravenous contrast. CTDI is 37.61 mGy and DLP is 546.36 mGy-cm. Automated exposure control was utilized for the study. A dose lowering technique was utilized adhering to the principles of ALARA. COMPARISON: December 17, 2022 FINDINGS: Brain: Mild cerebral atrophy and periventricular white matter low density consistent with chronic small vessel disease and/or senescent changes, similar to previous. No acute large vessel infarct or intracranial hemorrhage is seen. Ventricles: Mildly prominent. No mass or hemorrhage. Bones/joints: Unremarkable. No acute fracture. Soft tissues: Unremarkable. Sinuses: Unremarkable as visualized. No acute sinusitis. Mastoid air cells: Unremarkable as visualized. No mastoid effusion. IMPRESSION: Mild cerebral atrophy and periventricular white matter low density consistent with chronic small vessel disease and/or senescent changes, similar to previous. No acute large vessel infarct or intracranial hemorrhage is seen. Electronically signed by: Tariq Bryan MD 04/03/24 23:24 PM Chest CTA 04/03/24 23:17 EXAM: CT angio chest dissec wo/w con CLINICAL HISTORY: Dissection TECHNIQUE: Contiguous 3.[address] angiographic images of the chest were acquired with the administration of intravenous contrast. Coronal and sagittal reconstructions were obtained. One of these 3D techniques was utilized: Maximum Intensity Pixel (MIP), 3D Reconstructed Images, Volume Rendered Images, Surface Shaded Rendering. One of the following dose reduction techniques were utilized for this exam: Automated exposure control, adjustment of the mA and/or kV according to patient size, and use of iterative reconstruction. COMPARISON: 12/17/2022 FINDINGS: Pulmonary Arteries: Pulmonary arteries are normal in size and opacification. No evidence of pulmonary embolism. No stenosis or filling defects. Aorta: The thoracic aorta shows atherosclerotic changes. No evidence of dissection. Ascending aorta measures 36 mm, normal in caliber. Mild aneurysmal dilatation of arch of aorta, measuring 33 mm and descending thoracic aorta, measuring 32 x 28 mm in maximum caliber . Tortuous descending thoracic aorta. Mediastinum: Few sub centimetric calcified mediastinal and right hilar nodes. Heart: Normal size and morphology of the heart. No pericardial effusion. Lungs: Centrilobular emphysematous changes in both lungs Right apical fibrosis noted with multifocal areas of subpleural fibrosis in both lungs with thin parenchymal fibrotic strands. Sequelae to prior infection likely. Minimal subpleural atelectatic changes in basal segments. No pleural effusion or thickening. Bones: Degenerative changes in thoracic spine. Age-indeterminate superior endplate fracture of T12 vertebral body with central depression and lucent line along the posterior superior aspect on right side, the possibility of acute fracture cannot be excluded. Recommended clinical correlation with point tenderness Anterior wedging of T6-T8 vertebral body with superior endplate collapse, likely old osteoporotic changes. Soft Tissues: Normal appearance of the visualized soft tissues. No abnormal masses or fluid collections. Upper Abdomen: Pancreatic fatty replacement with bilateral perinephric fat stranding. IMPRESSION: 1. No evidence of aortic dissection at present. 2. Age-indeterminate superior endplate fracture of T12 vertebral body with central depression and lucent line along the posterior superior aspect on right side, the possibility of acute fracture cannot be excluded. Recommended clinical correlation with point tenderness and MRI if warranted. New interval findings. 3. Mild aneurysmal dilatation of arch of aorta, measuring 33 mm and descending thoracic aorta, measuring 32 x 28 mm in maximum caliber. Interval stable. 4. Anterior wedging of T6-T8 vertebral body with superior endplate collapse, likely old osteoporotic changes. Interval progression. 5. COPD. Interval stable. 6. Sequelae to prior infection in both lungs as described. Near interval stable. Electronically signed by Riddhi Gifford 04-04-2024 01:02 AM MDM Narrative Prior records/ancillary studies reviewed. Triage Nursing notes reviewed. Additional history obtained from the family. The patient's history was concerning for respiratory difficulties. Differential diagnosis: Etiologies such as infections, reactive airway disease, pneumonia, pneumothorax, COPD, CHF, cardiac ischemia, pulmonary embolism, musculoskeletal, gastrointestinal, as well as others were entertained. Physical examination: As above. ER treatment provided: An order was placed for continuous cardiac monitoring. The monitor shows a rate of 60-100 with a sinus rhythm per my interpretation. Nebulizer, Solu-Medrol, Zosyn for possible pneumonia On reassessment the patient felt better. Diagnostic interpretation by me: #1 the electrocardiogram was ordered for SOB. ECG: Normal sinus, first-degree AV block, nonspecific intraventricular block, Q waves in inferior leads, rate of 74. Impression normal sinus rhythm with a nonspecific intraventricular block first-degree AV block independently interpreted by myself #2 EKG ordered for elevated troponin ECG: Normal sinus, first-degree AV block, nonspecific intraventricular block, Q waves in inferior leads, rate of 74. Impression normal sinus rhythm with a nonspecific intraventricular block first-degree AV block independently interpreted by myself The labs Independently Interpreted by myself revealed elevated troponin repeat was ordered and was similar. Elevated BNP Normal VBG, positive coronavirus No worrisome leukocytosis, mild anemia Imaging studies: Imaging was reviewed and read by radiology Consultation: A consultation was placed with the hospitalist. The case was discussed and diagnostics were reviewed. The patient was evaluated in the ER for further treatment. This appears to be consistent with COPD exacerbation with coronavirus with frequent falls. Elevated troponin most likely type II NV from the COPD exacerbation and coronavirus.. Pt was medicated as above. He was given antibiotics for possible pneumonia pending x-ray. He was reassessed multiple times. Vital signs did improve. Medicine was consulted case discussed. He will be admitted to the medical service. By the evaluation outlined above emergent etiologies such as pulmonary embolism, reactive airway disease, pneumothorax, musculoskeletal, serious bacterial infections, as well as others were deemed relatively unlikely. The pt informed about the findings as listed above. All questions were answered and pleased with the treatment. The chart was completed utilizing [employer] Speech voice recognition software. Grammatical errors, random word insertions, pronoun errors, and incomplete sentences are an occassional consequence of this system due to software limitations, ambient noise, and hardware issues. Any formal questions or concerns about the content, text, or information contained within the body of this dictation should be directly addressed to the physician recovery assistant for clarification. Impression & Plan Acute exacerbation of chronic obstructive pulmonary disease, Coronavirus infection, Myocardial infarction type 2, Frequent falls Discharge Plan Visit Data Chief Complaint: Fall Stated Complaint: FALLS, DOESNT FEEL LIKE HIMSELF ED Provider: Saul Kumar ED Midlevel Provider: Bri Torres Discharge Problem: Acute exacerbation of chronic obstructive pulmonary disease, Coronavirus infection, Myocardial infarction type 2, Frequent falls Patient Disposition: Admitted As Inpatient Condition: Fair Forms Stand Alone Forms: My [employer] Prescriptions Prescriptions: No Action atorvastatin [Lipitor] 80 mg tablet 80 mg PO DAILY amiodarone [Pacerone] 200 mg tablet 200 mg PO DAILY levothyroxine 100 mcg tablet 100 mcg PO DAILY cholecalciferol (vitamin D3) [Vitamin D3] 25 mcg (1,000 unit) Tablet 25 mcg PO DAILY lisinopril 10 mg tablet 10 mg PO DAILY fluticasone propion-salmeterol 500-50 mcg/dose blister with device 1 inh INHALATION BID furosemide 20 mg tablet 20 mg PO DAILY tiotropium bromide [Spiriva with HandiHaler] 18 mcg capsule, w/inhalation device 18 mcg INHALATION DAILY oxycodone 5 mg tablet 2.5 mg PO Q6H PRN (Reason: pain) Qty: 12 0RF Referrals Referrals: Edgardo Sánchez DO [Primary Care Provider] -
[2024-04-04] MEDS: OPTIRAY 320 125ml IV ONE
[2024-04-04] MEDS: PIPERACILLIN/TAZOBACTAM 4.5 GM/100 ML BAG IV ONE (00:01)
[2024-04-04] MEDS: SODIUM CHLORIDE 0.9% 500 ML IV ONE (00:01)
--- NOTE | 2024-04-04 00:30 | Emergency Department Note ---
ED Visit Note I was consulted by the Advanced Practice Provider, Caryn Torres PA-C. I personally made/approved the management plan and take responsibility for the patient management. I performed a substantive portion of the visit. This includes the aspects of: -MDM: Patient had coronavirus on [employer] testing. Troponin positive. Patient to be admitted by internal medicine. -I independently interpreted the following studies: CT angiogram of the chest is negative for dissection.. .
--- NOTE | 2024-04-04 01:02 | CT Scan Report ---
EXAM: CT angio chest dissec wo/w con CLINICAL HISTORY: Dissection TECHNIQUE: Contiguous 3.[address] angiographic images of the chest were acquired with the administration of intravenous contrast. Coronal and sagittal reconstructions were obtained. One of these 3D techniques was utilized: Maximum Intensity Pixel (MIP), 3D Reconstructed Images, Volume Rendered Images, Surface Shaded Rendering. One of the following dose reduction techniques were utilized for this exam: Automated exposure control, adjustment of the mA and/or kV according to patient size, and use of iterative reconstruction. COMPARISON: 12/17/2022 FINDINGS: Pulmonary Arteries: Pulmonary arteries are normal in size and opacification. No evidence of pulmonary embolism. No stenosis or filling defects. Aorta: The thoracic aorta shows atherosclerotic changes. No evidence of dissection. Ascending aorta measures 36 mm, normal in caliber. Mild aneurysmal dilatation of arch of aorta, measuring 33 mm and descending thoracic aorta, measuring 32 x 28 mm in maximum caliber . Tortuous descending thoracic aorta. Mediastinum: Few sub centimetric calcified mediastinal and right hilar nodes. Heart: Normal size and morphology of the heart. No pericardial effusion. Lungs: Centrilobular emphysematous changes in both lungs Right apical fibrosis noted with multifocal areas of subpleural fibrosis in both lungs with thin parenchymal fibrotic strands. Sequelae to prior infection likely. Minimal subpleural atelectatic changes in basal segments. No pleural effusion or thickening. Bones: Degenerative changes in thoracic spine. Age-indeterminate superior endplate fracture of T12 vertebral body with central depression and lucent line along the posterior superior aspect on right side, the possibility of acute fracture cannot be excluded. Recommended clinical correlation with point tenderness Anterior wedging of T6-T8 vertebral body with superior endplate collapse, likely old osteoporotic changes. Soft Tissues: Normal appearance of the visualized soft tissues. No abnormal masses or fluid collections. Upper Abdomen: Pancreatic fatty replacement with bilateral perinephric fat stranding. IMPRESSION: 1. No evidence of aortic dissection at present. 2. Age-indeterminate superior endplate fracture of T12 vertebral body with central depression and lucent line along the posterior superior aspect on right side, the possibility of acute fracture cannot be excluded. Recommended clinical correlation with point tenderness and MRI if warranted. New interval findings. 3. Mild aneurysmal dilatation of arch of aorta, measuring 33 mm and descending thoracic aorta, measuring 32 x 28 mm in maximum caliber. Interval stable. 4. Anterior wedging of T6-T8 vertebral body with superior endplate collapse, likely old osteoporotic changes. Interval progression. 5. COPD. Interval stable. 6. Sequelae to prior infection in both lungs as described. Near interval stable. Electronically signed by Riddhi Gifford 04-04-2024 01:02 AM
--- NOTE | 2024-04-04 02:58 | History & Physical Report ---
Date of Service April 04, 2024 Assessment & Plan (1) Acute exacerbation of chronic obstructive pulmonary disease: Plan: 88-year-old male with past medical history significant for type 2 diabetes, CKD stage III, dyslipidemia, hypothyroidism, COPD, paroxysmal atrial fibrillation, iliac artery aneurysm bilateral, hypertension, abdominal aortic aneurysm s/p repair, endovascular stent graft for abdominal aortic aneurysm, asymptomatic bilateral carotid artery stenosis, history of CAD, heart failure with reduced ejection fraction, osteoporosis, beta-blockers contraindicated, who lives at home alone and daughter lives close by was brought in because of frequent falls and found to have COPD exacerbation and coronavirus OC43 positive. Patient was sleeping and was woken up. Can tell his name. Can tell his date of . Knows that he is in the hospital. Knows the month. But could not tell the year. He says he was falling at home and that is the reason was brought to hospital. Says he did not his head. Says he did not lose consciousness. Denies any fevers. Denies chest pain. Denies shortness of breath. Has some cough. No sore throat. No runny nose. No abdominal pain. Somewhat difficult to get history from the patient. Called the daughter. As per daughter patient was falling frequently last couple of days. He seemed very weak. Has been coughing more than usual. And he could not explain properly how he was falling and seemed forgetful and daughter decided to bring him to the hospital. Acute COPD exacerbation Bilateral wheezing CTA chest okay Possibly from coronavirus OC 43 infection DuoNebs [id number] and as needed IV Solu-Medrol 40 mg 3 times daily Will follow procalcitonin levels Close monitor Falls Mostly from above CT head and CT cervical spine no acute findings PT OT on when stable Confusion Mostly from above Will monitor Paroxysmal atrial fibrillation On amiodarone and aspirin CKD stage III Presents with creatinine 1.9 Close to baseline Got contrast Gentle fluids Follow repeat labs Chronic heart failure with reduced ejection fraction EF 49% echo done on 08/07 EF 50% echo 09/09/2023 Has lower extremity edema We will continue home Lasix Monitor for volume overload Elevated troponin Initial troponin 52 and repeat is 61 Mostly demand ischemia We will follow serial enzymes and echo If any concern will consult cardiology Bilateral lower extremity edema We will check Dopplers Hypertension On Lasix We will monitor Type 2 diabetes Not on meds Close monitor getting steroids Sliding scale Hyperlipidemia On statin History of CAD On statin and aspirin Not on beta-alexsandra because of slow resting heart rate and pulmonary disease History of abdominal aortic aneurysm s/p repair DVT prophylaxis Heparin subcu Disposition Med/telemetry Full code per my discussion with the daughter History of Present Illness Chief Complaint: Fall and COPD exacerbation Primary Care Provider: Edgardo Sánchez DO 88-year-old male with past medical history significant for type 2 diabetes, CKD stage III, dyslipidemia, hypothyroidism, COPD, paroxysmal atrial fibrillation, iliac artery aneurysm bilateral, hypertension, abdominal aortic aneurysm s/p repair, endovascular stent graft for abdominal aortic aneurysm, asymptomatic bilateral carotid artery stenosis, history of CAD, heart failure with reduced ejection fraction, osteoporosis, beta-blockers contraindicated, who lives at home alone and daughter lives close by was brought in because of frequent falls and found to have COPD exacerbation and coronavirus OC43 positive. Patient was sleeping and was woken up. Can tell his name. Can tell his date of . Knows that he is in the hospital. Knows the month. But could not tell the year. He says he was falling at home and that is the reason was brought to hospital. Says he did not his head. Says he did not lose consciousness. Andrey es any fevers. Denies chest pain. Denies shortness of breath. Has some cough. No sore throat. No runny nose. No abdominal pain. Somewhat difficult to get history from the patient. Called the daughter. As per daughter patient was falling frequently last couple of days. He seemed very weak. Has been coughing more than usual. And he could not explain properly how he was falling and seemed forgetful and daughter decided to bring him to the hospital. Past medical history. As mentioned above. Past surgical history. Colonoscopy. Endovascular infrarenal abdominal aortic aneurysm repair. Parathyroidectomy. Right cataract. Right lung single lobectomy for hematoma. Right carotid endarterectomy. Vasectomy Social history. . Quit smoking 1985. Smoked 1 pack a for 28 years. Alcohol rarely. No drug use. Family history. Father had liver cancer. Allergies Allergy/AdvReac Type Severity Reaction Status Date / Time adhesive tape Allergy Unknown "USE PAPER Verified 04/04/24 04:03 TAPE" Home Medications Medication Instructions Recorded Confirmed Type amiodarone 200 mg tablet (Pacerone) 200 mg PO DAILY 12/15/19 04/04/24 History atorvastatin 80 mg tablet (Lipitor) 80 mg PO DAILY 12/15/19 04/04/24 History levothyroxine 100 mcg tablet 100 mcg PO DAILY 12/15/19 04/04/24 History furosemide 20 mg tablet 20 mg PO DAILY 12/17/22 04/04/24 History albuterol sulfate 90 mcg/actuation 90 mcg inhalation Q6H PRN sob 04/04/24 04/04/24 History aerosol inhaler fluticasone 250 mcg-salmeterol 50 1 inh inhalation BID 04/04/24 04/04/24 History mcg/dose blistr powdr for inhalation Past Med/Surg History Problem List (Updated 04/03/24 @ 23:39 by Bri Torres PA-C) Frequent falls (Acute) Myocardial infarction type 2 (Acute) Coronavirus infection (Acute) Acute exacerbation of chronic obstructive pulmonary disease (Acute) Traumatic wound (Acute) Medical History CHF (congestive heart failure) COPD (chronic obstructive pulmonary disease) HTN (hypertension), benign Hypothyroidism Surgical History H/O parathyroidectomy History of lung surgery Social History Smoking Status: Former smoker Hx Alcohol Use: Yes Alcohol type: beer Alcohol type Comment: rarely Hx Substance Use: No Preferred Language: Monegasque Communication Ability: Effective Visual Impairment: Limited Hearing Ability: Normal Unit Secretary Required: No Beliefs That Will Affect Care: None marital status: / Current Living Situation: Alone current occupational status: retired Feels Safe at Home: Yes Safety Concerns: Feels Safe At This Time Assistive Devices: Glasses Review of Systems Review of Systems: All systems reviewed & are unremarkable except as noted in HPI & below Physical Exam Physical Exam: General-Not in distress Head- atraumatic Eyes- PERRL. ENT- oropharynx clear Neck- supple, no JVD. Lungs- clear to auscultation b/l wheezing heard, no crackles Heart- regular rate and rhythm; no murmur, no gallop. Abdomen- normal bowel sounds, soft, nontender, no distension Extremities- b/l lower extremity seen. mild rash seen on feet Neuro- alert, oriented x 2; PERRL, no facial palsy; no dysarthria; moves extremities Results & Data Results & Data Vital Signs (Past 12 Hours) Vital Signs Temp Pulse Pulse Resp BP BP Pulse Ox 04/04/24 02:00 69 18 169/90 H 97 04/04/24 01:53 73 04/04/24 01:30 70 16 147/75 H 97 04/04/24 01:00 72 18 141/74 H 95 04/04/24 00:30 73 20 152/78 H 95 04/04/24 00:00 72 18 166/86 H 97 04/03/24 23:30 73 20 163/85 H 98 04/03/24 22:00 36.8 C 75 17 185/96 H 92 04/03/24 21:56 74 04/03/24 21:56 73 92 O2 Del Method O2 Flow Rate 04/04/24 02:00 Room Air 04/04/24 01:53 04/04/24 01:30 Nasal Cannula 2 04/04/24 01:00 Nasal Cannula 2 04/04/24 00:30 Nasal Cannula 2 04/04/24 00:00 Nasal Cannula 2 04/03/24 23:30 Nasal Cannula 2 04/03/24 22:00 Room Air 04/03/24 21:56 04/03/24 21:56 Room Air Diagnostic Findings Laboratory Results WBC 7.55 K/ul (4.8-10.8) 04/03/24 21:54 RBC 4.02 M/uL (4.70-6.10) L 04/03/24 21:54 Hgb 11.8 g/dl (14.0-18.0) L 04/03/24 21:54 Hct 36.1 % (42.0-52.0) L 04/03/24 21:54 MCV 89.8 fL (80.0-100.0) 04/03/24 21:54 MCH 29.4 pg (25.0-34.0) 04/03/24 21:54 MCHC 32.7 g/dL (32.0-36.0) 04/03/24 21:54 RDW Std Deviation 53.2 fL (36.4-46.3) H 04/03/24 21:54 RDW Coeff of Rios 16.2 % (11.5-14.5) H 04/03/24 21:54 Plt Count 187 K/uL (130-400) 04/03/24 21:54 MPV 11.3 fL (9.4-12.4) 04/03/24 21:54 Immature Gran % (Auto) 0.3 % 04/03/24 21:54 Neut % (Auto) 75.2 % 04/03/24 21:54 Lymph % (Auto) 11.8 % 04/03/24 21:54 Latimer % (Auto) 12.2 % 04/03/24 21:54 Eos % (Auto) 0.1 % 04/03/24:54 Baso % (Auto) 0.4 % 04/03/24:54 Neut # (Auto) 5.68 K/uL (1.40-6.50) 04/03/24:54 Lymph # (Auto) 0.89 K/uL (1.20-3.40) L 04/03/24:54 Latimer # (Auto) 0.92 K/uL (0.11-0.59) H 04/03/24 21:54 Eos # (Auto) 0.01 K/uL (0.00-0.50) 04/03/24:54 Baso # (Auto) 0.03 K/uL (0.00-0.20) 04/03/24:54 Immature Gran # (Auto) 0.02 K/uL (0.01-0.20) 04/03/24:54 VBG pH 7.40 (7.36-7.41) 04/03/24:54 VBG pCO2 41 mmHg (38-50) 04/03/24:54 VBG pO2 41 mmHg 04/03/24:54 VBG HCO3 25 mmol/L 04/03/24:54 VBG O2 Saturation 68.9 % 04/03/24:54 VBG Base Excess 0.5 mEq/L 04/03/24 21:54 Sodium 138 mmol/L (136-145) 04/03/24:54 Potassium 4.1 mmol/L (3.5-5.1) 04/03/24: Chloride 104 mmol/L (98-107) 02/16/25 21:54 Carbon Dioxide 25 mmol/L (21-32) 04/03/24 21:54 Anion Gap 9 (3-11) 04/03/24 21:54 BUN 41 mg/dl (6-23) H 04/03/24 21:54 Creatinine 1.95 mg/dl (0.6-1.4) H 04/03/24 21:54 Est Cr Clr Drug Dosing 28.4 ml/min 04/03/24 21:54 eGFR 32.69 04/03/24 21:54 BUN/Creatinine Ratio 21.0 (10-20) H 04/03/24 21:54 Glucose 119 mg/dl (70-99(Fasting)) H 04/03/24 21:54 Lactate 0.9 mmol/L (0.4-2.0) 04/03/24 23:35 Calcium 9.3 mg/dl (8.6-10.3) 04/03/24 21:54 Magnesium 2.0 mg/dl (1.7-2.4) 04/03/24 21:54 Total Bilirubin 0.9 mg/dl (0.2-1.0) 04/03/24 21:54 AST 36 U/L (13-39) 04/03/24 21:54 ALT 21 U/L (7-52) 04/03/24 21:54 Alkaline Phosphatase 58 U/L (34-104) 04/03/24 21:54 Total Creatine Kinase 261 U/L (30-223) H 04/03/24 21:54 Troponin I High Sens 61.3 pg/ml (0-20) H* 04/03/24 23:35 B-Natriuretic Peptide 238 pg/ml (0-100) H 04/03/24 21:54 Total Protein 6.9 gm/dl (6.0-8.3) 04/03/24 21:54 Albumin 3.9 gm/dl (3.4-5.0) 04/03/24 21:54 Globulin 3.0 gm/dl (2.5-4.0) 04/03/24 21:54 Albumin/Globulin Ratio 1.3 (0.9-2) 04/03/24 21:54 TSH 0.319 uIu/ml (0.300-4.500) 04/03/24 21:54 Adenovirus (PCR) Not Detected (NotDetected) 04/03/24 21:54 B. pertussis DNA (PCR) Not Detected (NotDetected) 04/03/24 21:54 B.parapertussis DNA PCR Not Detected (NotDetected) 04/03/24 21:54 C. pneumoniae DNA (PCR) Not Detected (NotDetected) 04/03/24 21:54 Coronavirus OC43 (PCR) DETECTED (NotDetected) A 04/03/24 21:54 Coronavirus HKU1 (PCR) Not Detected (NotDetected) 04/03/24 21:54 Coronavirus 229E (PCR) Not Detected (NotDetected) 04/03/24 21:54 SARS-CoV-2 (PCR) Not Detected (NotDetected) 04/03/24 21:54 Coronavirus NL63 (PCR) Not Detected (NotDetected) 04/03/24 21:54 Human Metapneumovir PCR Not Detected (NotDetected) 04/03/24 21:54 Influenza Type A (PCR) Not Detected (NotDetected) 04/03/24 21:54 Influenza Type B (PCR) Not Detected (NotDetected) 04/03/24 21:54 M. pneumoniae (PCR) Not Detected (NotDetected) 04/03/24 21:54 Parainfluenza 1 (PCR) Not Detected (NotDetected) 04/03/24 21:54 Parainfluenza 2 (PCR) Not Detected (NotDetected) 04/03/24 21:54 Parainfluenza 3 (PCR) Not Detected (NotDetected) 04/03/24 21:54 Parainfluenza 4 (PCR) Not Detected (NotDetected) 04/03/24 21:54 RSV (PCR) Not Detected (NotDetected) 04/03/24 21:54 Entero/Rhino (PCR) Not Detected (NotDetected) 04/03/24 21:[address] 04/03/24 21:56 Exam(s): CT C SPINE EXAM: CT Cervical Spine Without Intravenous Contrast CLINICAL HISTORY: Reason for exam: fall. TECHNIQUE: Axial computed tomography images of the cervical spine without intravenous contrast. CTDI is 23.72 mGy and DLP is 507.36 mGy-cm. Automated exposure control was utilized for the study. A dose lowering technique was utilized adhering to the principles of ALARA. COMPARISON: No relevant prior studies available. FINDINGS: Vertebrae: Mild narrowing and osteophytosis of the atlantodental joint. The odontoid process is intact. No acute fracture. Soft tissues: Severe calcification of the left carotid bifurcation. Scarring in the right lung apex. . DISCS/SPINAL CANAL/NEURAL FORAMINA: C2-C3: Mild degenerative disc disease. No stenosis. C3-C4: Mild degenerative disc disease. No stenosis. C4-C5: Moderate degenerative disc disease. No stenosis. C5-C6: Moderate degenerative disc disease. No stenosis. C6-C7: Moderate degenerative disc disease. No stenosis. C7-T1: Mild degenerative disc disease. No stenosis. 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 No acute fracture or subluxation is seen. Electronically signed by: Tariq Bryan MD 04/03/24 23:25 PM Chest X-Ray 04/03/24 21:56 Exam(s): XR CXR 1 VIEW EXAM: XR Chest, 1 View CLINICAL HISTORY: Reason for exam: weakness. TECHNIQUE: Frontal view of the chest. COMPARISON: January 17, 2007 FINDINGS: Lungs: Scarring in the right lung apex, similar to previous. There are surgical clips in the right hilar region with volume loss consistent with previous partial right pneumonectomy, similar to previous. No new infiltrate identified. Pleural space: Unremarkable. No pneumothorax. Heart: Mild cardiomegaly. Mediastinum: Unremarkable. Normal mediastinal contour. Bones/joints: Mild degenerative changes in the spine. No acute fracture. Vasculature: The aortic arch is calcified and tortuous, increased since previous. Upper abdomen: Unremarkable as visualized. No pneumoperitoneum is seen under the diaphragm. IMPRESSION: 1. Mild cardiomegaly. 2. The aortic arch is calcified and tortuous, increased since previous. 3. Scarring in the right lung apex, similar to previous. There are surgical clips in the right hilar region with volume loss consistent with previous partial right pneumonectomy, similar to previous. No new infiltrate identified. Electronically signed by: Tariq Bryan MD 04/03/24 23:[address] 04/03/24 21:56 Exam(s): CT HEAD Without Contrast EXAM: CT Head Without Intravenous Contrast CLINICAL HISTORY: Reason for exam: fall. TECHNIQUE: Axial computed tomography images of the head/brain without intravenous contrast. CTDI is 37.61 mGy and DLP is 546.36 mGy-cm. Automated exposure control was utilized for the study. A dose lowering technique was utilized adhering to the principles of ALARA. COMPARISON: December 17, 2022 FINDINGS: Brain: Mild cerebral atrophy and periventricular white matter low density consistent with chronic small vessel disease and/or senescent changes, similar to previous. No acute large vessel infarct or intracranial hemorrhage is seen. Ventricles: Mildly prominent. No mass or hemorrhage. Bones/joints: Unremarkable. No acute fracture. Soft tissues: Unremarkable. Sinuses: Unremarkable as visualized. No acute sinusitis. Mastoid air cells: Unremarkable as visualized. No mastoid effusion. IMPRESSION: Mild cerebral atrophy and periventricular white matter low density consistent with chronic small vessel disease and/or senescent changes, similar to previous. No acute large vessel infarct or intracranial hemorrhage is seen. Electronically signed by: Tariq Bryan MD 04/03/24 23:24 PM Chest CTA 04/03/24 23:17 EXAM: CT angio chest dissec wo/w con CLINICAL HISTORY: Dissection TECHNIQUE: Contiguous 3.[address] angiographic images of the chest were acquired with the administration of intravenous contrast. Coronal and sagittal reconstructions were obtained. One of these 3D techniques was utilized: Maximum Intensity Pixel (MIP), 3D Reconstructed Images, Volume Rendered Images, Surface Shaded Rendering. One of the following dose reduction techniques were utilized for this exam: Automated exposure control, adjustment of the mA and/or kV according to patient size, and use of iterative reconstruction. COMPARISON: 12/17/2022 FINDINGS: Pulmonary Arteries: Pulmonary arteries are normal in size and opacification. No evidence of pulmonary embolism. No stenosis or filling defects. Aorta: The thoracic aorta shows atherosclerotic changes. No evidence of dissection. Ascending aorta measures 36 mm, normal in caliber. Mild aneurysmal dilatation of arch of aorta, measuring 33 mm and descending thoracic aorta, measuring 32 x 28 mm in maximum caliber . Tortuous descending thoracic aorta. Mediastinum: Few sub centimetric calcified mediastinal and right hilar nodes. Heart: Normal size and morphology of the heart. No pericardial effusion. Lungs: Centrilobular emphysematous changes in both lungs Right apical fibrosis noted with multifocal areas of subpleural fibrosis in both lungs with thin parenchymal fibrotic strands. Sequelae to prior infection likely. Minimal subpleural atelectatic changes in basal segments. No pleural effusion or thickening. Bones: Degenerative changes in thoracic spine. Age-indeterminate superior endplate fracture of T12 vertebral body with central depression and lucent line along the posterior superior aspect on right side, the possibility of acute fracture cannot be excluded. Recommended clinical correlation with point tenderness Anterior wedging of T6-T8 vertebral body with superior endplate collapse, likely old osteoporotic changes. Soft Tissues: Normal appearance of the visualized soft tissues. No abnormal masses or fluid collections. Upper Abdomen: Pancreatic fatty replacement with bilateral perinephric fat stranding. IMPRESSION: 1. No evidence of aortic dissection at present. 2. Age-indeterminate superior endplate fracture of T12 vertebral body with central depression and lucent line along the posterior superior aspect on right side, the possibility of acute fracture cannot be excluded. Recommended clinical correlation with point tenderness and MRI if warranted. New interval findings. 3. Mild aneurysmal dilatation of arch of aorta, measuring 33 mm and descending thoracic aorta, measuring 32 x 28 mm in maximum caliber. Interval stable. 4. Anterior wedging of T6-T8 vertebral body with superior endplate collapse, likely old osteoporotic changes. Interval progression. 5. COPD. Interval stable. 6. Sequelae to prior infection in both lungs as described. Near interval stable. Electronically signed by Riddhi Gifford 04-04-2024 01:02 AM ECG Additional Comments: ECG. Sinus rhythm with first-degree AV block with rate of 74. Nonspecific intraventricular conduction block. No significant change from previous EKG. Code Status & VTE Plan VTE Prophylaxis Plan VTE Prophylaxis will be ordered: Yes
[2024-04-04] MEDS ORDERED: CARBOHYDRATES FOR HYPOGLYCEMIA PO PRN (03:28)
[2024-04-04] MEDS ORDERED: GLUCAGON FOR INJ 1 MG VIAL SQ PRN (03:28)
[2024-04-04] MEDS ORDERED: ALBUTEROL HFA 8 GM INHALER INH PRN (03:28)
[2024-04-04] MEDS ORDERED: POLYETHYLENE (MIRALAX) 17 GM PACK PO PRN (03:28)
[2024-04-04] MEDS ORDERED: GLUCOSE 40% GEL 15 GM TUBE PO PRN (03:28)
[2024-04-04] MEDS ORDERED: DEXTROSE 50% 50 ML SYRINGE IV PRN (03:28)
[2024-04-04] MEDS ORDERED: NITROGLYCERIN SL 0.4 MG/TAB TAB SL PRN (03:28)
[2024-04-04] MEDS ORDERED: GLUCOSE 10 TAB/TUBE PO PRN (03:28)
[2024-04-04 03:37] LABS: Appearance Urine Clear (Clear); Bacteria Urine Automated None Seen (None Seen); Bilirubin Urine Negative (Negative); Blood Urine 1+ (Negative); Color Urine Yellow; Epithelial Cell Urine Auto 0-2 /hpf (0-2); Glucose Urine UA Negative (Negative); Ketones Urine Trace (Negative); Leukocyte Esterase Urine Negative (Negative); Nitrite Urine Negative (Negative); Protein Urine 1+ (Negative); RBC Urine Automated 0-2 /hpf (0-2); Specific Gravity Urine 1.039 (1.000-1.030); Urobilinogen Urine Negative (Negative); WBC Urine Automated 0-5 /hpf (0-5); pH Urine 6.5 (4.5-7.5)
--- NOTE | 2024-04-04 05:04 | Ultrasound Report ---
EXAM: US venous doppler LE CLINICAL HISTORY: b/l lower ext edema. dvt TECHNIQUE: Ultrasound examination of bilateral lower extremity veins was performed in real time and duplex. One or more of the following were performed- spectral analysis, resistive index, waveform analysis, and pulsed Doppler. COMPARISON: None. FINDINGS: Normal phasic, non-pulsatile and spontaneous flow is noted in bilateral common femoral, superficial femoral, popliteal, anterior tibial, posterior tibial and peroneal veins. Visualized veins of both lower extremities demonstrate normal compressibility. No sonographic evidence of acute deep vein thrombosis (DVT) is detected in the visualized veins of both lower extremities. Compression and Augmentation: All evaluated veins compress fully with applied transducer pressure. Augmentation of venous flow is noted with distal compression. Additional Findings: No evidence of intraluminal thrombus. A plaque is noted within the right common femoral artery. A cystic area seen in the left groin measuring 3.2 x 3.1 x 3.2 cm. IMPRESSION: 1. No sonographic evidence of acute DVT detected in bilateral lower extremity veins, at the time of examination. 2. A plaque is noted within the right common femoral artery. 3. A cystic area seen in the left groin measuring 3.2 x 3.1 x 3.2 cm, in view of patient history could be postoperative seroma/collection. Disclaimer: DVT could be missed early in the disease when clot burden is minimal. For patients with moderate and high pretest probability of DVT and negative ultrasound, the [employer] clinical guidelines recommend testing with a D-dimer assay or repeat ultrasound in 5-7 days. If symptoms worsen, the Society of radiologists in ultrasound recommends repeating ultrasound even earlier. Electronically signed by Riddhi Gifford 04-04-2024 05:04 AM
[2024-04-04] MEDS: SODIUM CHLORIDE 0.9% 1,000 ML IV SCH (06:01)
[2024-04-04] MEDS: LEVOTHYROXINE SODIUM 100 MCG TABLET PO SCH (06:01)
[2024-04-04] MEDS: methylPREDNISolone 40 MG in SYRINGE 0 ML IV SCH (06:02)
[2024-04-04] MEDS: HEPARIN SOD 5,000 UNIT/0.5 ML VIAL SQ SCH (06:04)
[2024-04-04 07:28] LABS: Hematocrit (blood only) 34.1 % (42.0-52.0); Hemoglobin 11.3 g/dl (14.0-18.0); Mean Corpuscular Hemoglobin 29.7 pg (25.0-34.0); Mean Corpuscular Hgb Conc 33.1 g/dL (32.0-36.0); Mean Corpuscular Volume 89.7 fL (80.0-100.0); Mean Platelet Volume 11.5 fL (9.4-12.4); Platelet Count 163 K/uL (130-400); RDW Coefficient of Variation 16.2 % (11.5-14.5); RDW Standard Deviation 54.3 fL (36.4-46.3); White Blood Count 4.87 K/ul (4.8-10.8)
[2024-04-04 07:44] LABS: BUN Creatinine Ratio 22.7 (10-20); Calcium 8.8 mg/dl (8.6-10.3); Potassium 4.1 mmol/L (3.5-5.1)
[2024-04-04 07:51] LABS: Immature Granulocytes # (auto) 0.02 K/uL (0.01-0.20); Immature Granulocytes % (auto) 0.4 %; Lymphocytes # (auto) 0.37 K/uL (1.20-3.40); Lymphocytes % (auto) 7.6 %; Monocytes # (auto) 0.06 K/uL (0.11-0.59); Monocytes % (auto) 1.2 %; Neutrophils # (auto) 4.42 K/uL (1.40-6.50); Neutrophils % (auto) 90.8 %
[2024-04-04] MEDS: ALBUT/IPRATROP 3MG/0.5MG NEB 3 ML VIAL NEB SCH (07:59)
[2024-04-04 08:01] LABS: Troponin I High Sensitivity 58.2 pg/ml (0-20)
[2024-04-04] MEDS ORDERED: methylPREDNISolone 125 MG/2 ML VIAL IV SCH (09:00)
[2024-04-04] MEDS: ASPIRIN 81 MG ECTAB PO SCH (09:27)
[2024-04-04] MEDS: FLUTICASONE/VILANTEROL 200/25MCG 14 PUFFS/INHALER INH SCH (09:27)
[2024-04-04] MEDS: ATORVASTATIN 40 MG TAB PO SCH (09:27)
[2024-04-04] MEDS: AMIODARONE 200 MG TAB PO SCH (09:27)
[2024-04-04] MEDS: FUROSEMIDE 20 MG TAB PO SCH (09:27)
[2024-04-04] MEDS: NYSTATIN CR 15 GM TUBE EXT SCH (09:28)
[2024-04-04] MEDS: INSULIN ASPART PER UNIT CHARGE SC SCH (10:06)
--- NOTE | 2024-04-04 13:14 | Electrocardiogram Report ---
Test Reason : Blood Pressure : */* mmHG Vent. Rate : 73 BPM Atrial Rate : 73 BPM P-R Int : 214 ms QRS Dur : 130 ms QT Int : 454 ms P-R-T Axes : 74 35 26 degrees QTcB Int : 500 ms Sinus rhythm with 1st degree A-V block Non-specific intra-ventricular conduction block Possible Inferior infarct (cited on or before 02-Mar-1997) Cannot rule out Anterior infarct (cited on or before 09-Mar-1997) Abnormal ECG When compared with ECG of 03-Apr-2024 21:56, (unconfirmed) No significant change was found Confirmed by Michael Arnold ([id number] on 04/04/2024 1:13:48 PM Referred By: REFERRED SELF Confirmed By: Michael Arnold
--- NOTE | 2024-04-04 13:44 | Electrocardiogram Report ---
Test Reason : Blood Pressure : */* mmHG Vent. Rate : 74 BPM Atrial Rate : 74 BPM P-R Int : 210 ms QRS Dur : 128 ms QT Int : 444 ms P-R-T Axes : 57 47 22 degrees QTcB Int : 492 ms Sinus rhythm with 1st degree A-V block Non-specific intra-ventricular conduction block Possible Inferior infarct (cited on or before 02-Mar-1997) Cannot rule out Anterior infarct (cited on or before 09-Mar-1997) Abnormal ECG When compared with ECG of 17-Dec-2022 07:18, No significant change was found Confirmed by Michael Arnold ([id number]) on 04/04/2024 1:05:05 PM Referred By: REFERRED SELF Confirmed By: Michael Arnold
--- NOTE | 2024-04-04 13:56 | Communication Note ---
Patient seen and examined at bedside. Patient doing better this morning. States he has been feeling short of breath for the past few days, but now feeling better after treatment. Feels quite weak, would like to work with physical therapy. PT OT ordered, will follow-up on echo results when they come back, and anticipate placement. Date of Service: April 04, 2024
[2024-04-05] MEDS: MELATONIN 3 MG TAB PO PRN (00:31)
[2024-04-05] MEDS: ALBUT/IPRATROP 3MG/0.5MG NEB 3 ML VIAL NEB PRN (02:07)
[2024-04-05 07:38] LABS: Hematocrit (blood only) 32.5 % (42.0-52.0); Hemoglobin 10.7 g/dl (14.0-18.0); Mean Corpuscular Hemoglobin 29.5 pg (25.0-34.0); Mean Corpuscular Hgb Conc 32.9 g/dL (32.0-36.0); Mean Corpuscular Volume 89.5 fL (80.0-100.0); Mean Platelet Volume 11.5 fL (9.4-12.4); Platelet Count 191 K/uL (130-400); RDW Coefficient of Variation 16.5 % (11.5-14.5); RDW Standard Deviation 54.3 fL (36.4-46.3); Red Blood Count 3.63 M/uL (4.70-6.10); White Blood Count 15.99 K/ul (4.8-10.8)
[2024-04-05 07:51] LABS: BUN Creatinine Ratio 26.6 (10-20); Calcium 9.1 mg/dl (8.6-10.3); Creatinine Clr Calc Pharmacy 28.9 ml/min; Potassium 3.7 mmol/L (3.5-5.1)
[2024-04-05] MEDS ORDERED: MICONAZOLE NITRATE POWDER 85 GM EXT PRN (10:46)
--- NOTE | 2024-04-05 13:43 | Hospitalist Progress Note ---
Date of Service April 05, 2024 Assessment & Plan (1) Acute exacerbation of chronic obstructive pulmonary disease: Plan: 88-year-old male with past medical history significant for type 2 diabetes, CKD stage III, dyslipidemia, hypothyroidism, COPD, paroxysmal atrial fibrillation, iliac artery aneurysm bilateral, hypertension, abdominal aortic aneurysm s/p repair, endovascular stent graft for abdominal aortic aneurysm, asymptomatic bilateral carotid artery stenosis, history of CAD, heart failure with reduced ejection fraction, osteoporosis, beta-blockers contraindicated, who lives at home alone and daughter lives close by was brought in because of frequent falls and found to have COPD exacerbation and coronavirus OC43 positive. Patient was sleeping and was woken up. Can tell his name. Can tell his date of . Knows that he is in the hospital. Knows the month. But could not tell the year. He says he was falling at home and that is the reason was brought to hospital. Says he did not his head. Says he did not lose consciousness. Denies any fevers. Denies chest pain. Denies shortness of breath. Has some cough. No sore throat. No runny nose. No abdominal pain. Somewhat difficult to get history from the patient. Called the daughter. As per daughter patient was falling frequently last couple of days. He seemed very weak. Has been coughing more than usual. And he could not explain properly how he was falling and seemed forgetful and daughter decided to bring him to the hospital. Acute COPD exacerbation -CTA chest okay -Possibly from coronavirus OC 43 infection -DuoNebs [id number] and as needed -switch solumedrol to prednisone x5 days [place] -CT head and CT cervical spine no acute findings -PT OT recommending SNF, awaiting placement Confusion -resolved Paroxysmal atrial fibrillation -On amiodarone and aspirin CKD stage III -Presents with creatinine 1.9 -at baseline Chronic heart failure with reduced ejection fraction -EF 50% echo 09/09/2023 -Has lower extremity edema -We will continue home Lasix Elevated troponin -demand ischemia, resolved Bilateral lower extremity edema -We will check Dopplers Hypertension -On Lasix Type 2 diabetes -Not on meds -SSI Hyperlipidemia -On statin History of CAD -On statin and aspirin -Not on beta-alexsandra because of slow resting heart rate and pulmonary disease History of abdominal aortic aneurysm s/p repair Plan Feeding/fluids: regular,carb Analgesia: tylenol Sedation: na Thromboprophylaxis: heparin Head up position: na Ulcer prophylaxis: na Glycemic control: insulin Spontaneous breathing trial: na Bowel care: start miralax prn Indwelling catheter rem naoval: Deescalation of antibiotics: na I spent a total of 45 minutes in direct patient care, including [id number] time with the patient and/or family, reviewing medical records, ordering and reviewing diagnostic tests, and coordinating care with other healthcare providers. This time includes: history taking, physical examination, medical decision making, counseling, ECG interpretation, imaging interpretation, lab interpretation, orders, and education, excluding time spent in the performance of separately billed services. Admission and Anticipated Discharge Date Admission Date: April 04, 2024 Subjective Patient seen and examined at bedside. Mr. Pickett wants to go home today. FAmily at bedside. Discussed PT/OT recommendation for rehab, he is reluctantly agreeable. Review of Systems Review of Systems: CONSTITUTIONAL: Patient denies fevers, chills, sweats and weight changes. EYES: Patient denies any visual symptoms. EARS, NOSE, AND THROAT: No difficulties with hearing. No symptoms of rhinitis or sore throat. CARDIOVASCULAR: Patient denies chest pains, palpitations, orthopnea and paroxysmal nocturnal dyspnea. RESPIRATORY: No dyspnea on exertion, no wheezing or cough. GI: No nausea, vomiting, diarrhea, constipation, abdominal pain, hematochezia or melena. : No urinary hesitancy or dribbling. No nocturia or urinary frequency. No abnormal urethral discharge. MUSCULOSKELETAL: weakness NEUROLOGIC: No chronic headaches, no seizures. Patient denies numbness, tingling or weakness. PSYCHIATRIC: Patient denies problems with mood disturbance. No problems with anxiety. ENDOCRINE: No excessive urination or excessive thirst. DERMATOLOGIC: Patient denies any rashes or skin changes. Physical Exam Physical Exam: Gen: A&O 3 NAD HEENT: NCAT, EOMI, not icteric. External ears normal. No rhinorrhea. Moist mucous membranes. Neck: Supple, full range of motion, no observable masses, No meningeal sign. Lungs: slight expiratory wheezing, improved from prior CV: RRR, no edema. Abdomen: Soft, nondistended, No rebound tenderness. MSK: No joint swelling, no redness. Skin: No rashes, petechiae, lesions. Normal color per patient. Neuro: Normal Gait, Grossly intact. 4+/5 strength diffusely Psych: Appropriate for situation. Results & Data Results & Data Vital Signs (Past 12 Hours) Vital Signs Temp Pulse Pulse Resp BP BP Pulse Ox 04/05/24 12:00 36.3 C L 78 18 165/77 H 95 04/05/24 10:20 69 18 93 04/05/24 08:00 04/05/24 07:40 67 18 93 04/05/24 07:36 36.5 C 67 18 166/81 H 93 04/05/24 07:00 66 04/05/24 05:38 68 04/05/24 02:51 36.4 C L 65 14 155/76 H 91 04/05/24 02:07 63 16 91 O2 Del Method 04/05/24 12:00 Room Air 04/05/24 10:20 Room Air 04/05/24 08:00 Room Air 04/05/24 07:40 Room Air 04/05/24 07:36 Room Air 04/05/24 07:00 04/05/24 05:38 04/05/24 02:51 Room Air 04/05/24 02:07 Room Air Laboratory Results -personally reviewed, elevated leukoctyosis in setting of decadron Medications Administered Albuterol (Albut/Ipratrop 3mg/0.5mg Neb 3 Ml Vial) 3 ml NEB QIDR VINOD; Protocol Stop: 05/04/24 06:59 Last Admin: 04/05/24 10:20 Dose: 3 ml Documented By: Admin: 04/05/24 07:40 Dose: 3 ml Documented By: Admin: 04/04/24 20:40 Dose: 3 ml Documented By: Admin: 04/04/24 14:25 Dose: 3 ml Documented By: Admin: 04/04/24 11:11 Dose: 3 ml Documented By: Admin: 04/04/24 07:59 Dose: 3 ml Documented By: LIANNE Albuterol (Albut/Ipratrop 3mg/0.5mg Neb 3 Ml Vial) 3 ml NEB Q4H PRN; Protocol PRN Reason: Shortness Of Breath Or Wheezing Stop: 05/04/24 03:27 Last Admin: 04/05/24 02:07 Dose: 3 ml Documented By: PAMELA Amiodarone HCl (Amiodarone 200 Mg Tab) 200 mg PO DAILY VINOD Stop: 05/04/24 08:59 Last Admin: 04/05/24 08:18 Dose: 200 mg Documented By: Admin: 04/04/24 09:27 Dose: 200 mg Documented By: HORACE Aspirin (Aspirin 81 Mg Ectab) 81 mg PO DAILY VINOD Stop: 05/04/24 08:59 Last Admin: 04/05/24 08:18 Dose: 81 mg Documented By: Admin: 04/04/24 09:27 Dose: 81 mg Documented By: HORACE Atorvastatin Calcium (Atorvastatin 40 Mg Tab) 80 mg PO DAILY VINOD Stop: 05/04/24 08:59 Last Admin: 04/05/24 08:18 Dose: 80 mg Documented By: Admin: 04/04/24 09:27 Dose: 80 mg Documented By: HORACE Fluticasone/Vilanterol (Fluticasone/Vilanterol 200/25mcg 14 Puffs/Inhaler) 1 puffs INH DAILY VINOD Stop: 05/04/24 08:59 Last Admin: 04/05/24 08:18 Dose: 1 puffs Documented By: Admin: 04/04/24 09:27 Dose: 1 puffs Documented By: HORACE Furosemide (Furosemide 20 Mg Tab) 20 mg PO DAILY VINOD Stop: 05/04/24 08:59 Last Admin: 04/05/24 08:18 Dose: 20 mg Documented By: Admin: 04/04/24 09:27 Dose: 20 mg Documented By: HORACE Heparin Sodium (Porcine) (Heparin Sod 5,000 Unit/0.5 Ml Vial) 5,000 units SQ Q8 VINOD Stop: 05/04/24 05:59 Last Admin: 04/05/24 06:03 Dose: 5,000 units Documented By: Admin: 04/04/24 22:43 Dose: 5,000 units Documented By: Admin: 04/04/24 14:41 Dose: 5,000 units Documented By: Admin: 04/04/24 06:04 Dose: 5,000 units Documented By: KAT Methylprednisolone 40 mg/ (Syringe) 0.64 mls @ 1.5 mls/min IV Q8H VINOD Stop: 05/04/24 05:59 Last Admin: 04/05/24 06:03 Dose: 1.5 mls/min Documented By: Admin: 04/04/24 22:43 Dose: 1.5 mls/min Documented By: Admin: 04/04/24 14:41 Dose: 1.5 mls/min Documented By: Admin: 04/04/24 06:02 Dose: 1.5 mls/min Documented By: AN Insulin Aspart (Insulin Aspart Per Unit Charge) 0 units SC ACHS VINOD Stop: 05/04/24 07:29 Last Admin: 04/05/24 12:42 Dose: 3 units Documented By: RADHA Co-signed By: DELFIN Admin: 04/05/24 08:59 Dose: Not Given Documented By: Admin: 04/04/24 20:52 Dose: 2 units Documented By: EVANGELINA Co-signed By: CAMPOS Admin: 04/04/24 17:39 Dose: 2 units Documented By: DELFIN Co-signed By: UMESH Admin: 04/04/24 13:26 Dose: 2 units Documented By: HORACE Co-signed By: Admin: 04/04/24 10:06 Dose: 1,000 units Documented By: HORACE Co-signed By: BA Levothyroxine Sodium (Levothyroxine Sodium 100 Mcg Tablet) 100 mcg PO DAILYBB [facility] Stop: 05/04/24 06:29 Last Admin: 04/05/24 06:03 Dose: 100 mcg Documented By: Admin: 04/04/24 06:01 Dose: 100 mcg Documented By: KAT Melatonin (Melatonin 3 Mg Tab) 3 mg PO HS PRN PRN Reason: Sleep Stop: 05/05/24 00:24 Last Admin: 04/05/24 00:31 Dose: 3 mg Documented By: EVANGELINA Nystatin (Nystatin Cr 15 Gm Tube) 1 appln EXT BID VINOD Stop: 05/04/24 08:59 Last Admin: 04/05/24 08:19 Dose: 1 appln Documented By: Admin: 04/04/24 20:53 Dose: 1 appln Documented By: Admin: 04/04/24 09:28 Dose: 1 appln Documented By: HORACE
[2024-04-05] MEDS: D5W AND LACTATED RINGERS 1,000 ML IV SCH (14:59)
[2024-04-06] MEDS: hydrALAZINE HCL 20 MG/ML VIAL IV ONE ×2 (01:33→19:29)
[2024-04-06] MEDS: hydrALAZINE HCL 20 MG/ML VIAL IV STA (05:10)
[2024-04-06 06:38] LABS: Hemoglobin 11.2 g/dl (14.0-18.0); Mean Corpuscular Hemoglobin 29.2 pg (25.0-34.0); Mean Corpuscular Hgb Conc 32.9 g/dL (32.0-36.0); Mean Corpuscular Volume 88.8 fL (80.0-100.0); Mean Platelet Volume 11.7 fL (9.4-12.4); Platelet Count 212 K/uL (130-400); RDW Coefficient of Variation 16.2 % (11.5-14.5); RDW Standard Deviation 52.8 fL (36.4-46.3); Red Blood Count 3.83 M/uL (4.70-6.10); White Blood Count 15.33 K/ul (4.8-10.8)
[2024-04-06 06:47] LABS: BUN Creatinine Ratio 30.8 (10-20); Creatinine Clr Calc Pharmacy 32.2 ml/min; Potassium 3.8 mmol/L (3.5-5.1)
[2024-04-06] MEDS: predniSONE 20 MG TAB PO SCH (09:54)
--- NOTE | 2024-04-06 12:16 | Hospitalist Progress Note ---
Date of Service April 06, 2024 Assessment & Plan (1) Acute exacerbation of chronic obstructive pulmonary disease: Plan: per admitting service notes with addendum: 88-year-old male with past medical history significant for type 2 diabetes, CKD stage III, dyslipidemia, hypothyroidism, COPD, paroxysmal atrial fibrillation, iliac artery aneurysm bilateral, hypertension, abdominal aortic aneurysm s/p repair, endovascular stent graft for abdominal aortic aneurysm, asymptomatic bilateral carotid artery stenosis, history of CAD, heart failure with reduced ejection fraction, osteoporosis, beta-blockers contraindicated, who lives at home alone and daughter lives close by was brought in because of frequent falls and found to have COPD exacerbation and coronavirus OC43 positive. Patient was sleeping and was woken up. Can tell his name. Can tell his date of . Knows that he is in the hospital. Knows the month. But could not tell the year. He says he was falling at home and that is the reason was brought to hospital. Says he did not his head. Says he did not lose consciousness. Denies any fevers. Denies chest pain. Denies shortness of breath. Has some cough. No sore throat. No runny nose. No abdominal pain. Somewhat difficult to get history from the patient. Called the daughter. As per daughter patient was falling frequently last couple of days. He seemed very weak. Has been coughing more than usual. And he could not explain properly how he was falling and seemed forgetful and daughter decided to bring him to the hospital. Acute COPD exacerbation -CTA chest okay -Possibly from coronavirus OC 43 infection -DuoNebs [id number] and as needed -switch solumedrol to prednisone x5 days 04/06 on room air still has some BL wheeze continue Duonebs, Prednisone [place] -CT head and CT cervical spine no acute findings -PT OT recommending SNF, awaiting placement 04/06 awaiting placement Confusion - still has some confusion monitor closely Paroxysmal atrial fibrillation -On amiodarone and aspirin CKD stage III -Presents with creatinine 1.9 -at baseline Chronic heart failure with reduced ejection fraction -EF 50% echo 09/09/2023 -Has lower extremity edema -We will continue home Lasix Elevated troponin -demand ischemia, resolved Bilateral lower extremity edema -no DVT Hypertension -On Lasix Type 2 diabetes -Not on meds -SSI Hyperlipidemia -On statin History of CAD -On statin and aspirin -Not on beta-alexsandra because of slow resting heart rate and pulmonary disease History of abdominal aortic aneurysm s/p repair Admission and Anticipated Discharge Date Admission Date: April 04, 2024 Subjective ff up for COPD exacerbation, etc seen resting in bed, comfortable not in distress on room air states he feels fine overall denies shortness of breath, cough *heard with dry cough no chest palpitations, dizziness, chest pain no other symptoms Review of Systems Review of Systems: all noted and negative except for above Physical Exam Physical Exam: General- oriented x 1, not in distress, speaks in sentences with no effort or accessory muscle use Eyes- anicteric Neck- no JVD Lungs- (+) mild scattered wheeze BL Heart- normal rate, regular rhythm; no murmurs Abdomen- normal bowel sounds, nondistended, soft, nontender Extremities- no pretibial edema, no calf tenderness Neuro- alert, oriented x 3; no gross focal neurologic deficits Skin- warm & dry Results & Data Results & Data Vital Signs (Past 12 Hours) Vital Signs Temp Pulse Pulse Resp BP BP Pulse Ox 04/06/24 10:11 67 18 95 04/06/24 07:46 04/06/24 07:45 36.3 C L 74 18 174/83 H 93 04/06/24 07:18 69 04/06/24 06:14 72 18 99 04/06/24 04:06 36.2 C L 74 24 188/87 H 93 04/06/24 01:17 73 198/118 H 04/06/24 00:48 36.7 C 73 20 180/84 H 92 O2 Del Method 04/06/24 10:11 Room Air 04/06/24 07:46 Room Air 04/06/24 07:45 Room Air 04/06/24 07:18 04/06/24 06:14 Room Air 04/06/24 04:06 Room Air 04/06/24 01:17 04/06/24 00:48 Room Air all noted and reviewed including below
[2024-04-06] MEDS: amLODIPine BESYLATE 5 MG TAB PO ONE (17:37)
[2024-04-07] MEDS: predniSONE 20 MG TAB PO ONE (04:56)
[2024-04-07] MEDS ORDERED: OLANZapine 10 MG/2.1 ML SDV IM PRN (05:22)
--- NOTE | 2024-04-07 05:33 | Communication Note ---
Date of Service: April 07, 2024 Patient noted to have bleeding from upper extremity IV site and toe Hold aspirin and heparin subcu for now.
[2024-04-07] MEDS: OLANZapine 10 MG/2.1 ML SDV IM STA (05:40)
[2024-04-07] MEDS: ALBUT/IPRATROP 3MG/0.5MG NEB 3 ML VIAL NEB STA (05:50)
[2024-04-07] MEDS: METOPROLOL TARTRATE 1 MG/ML VIAL IV STA (05:56)
--- NOTE | 2024-04-07 06:21 | XRay Report ---
EXAM: XR chest 1V portable CLINICAL HISTORY: wheeze TECHNIQUE: An X-ray image of the chest is obtained in AP projection. COMPARISON: CT angio 04/03/2024. FINDINGS: Pulmonary Parenchyma: Lungs show prominent perihilar bronchovascular markings. No evidence of consolidation, collapse, or focal opacities. No pulmonary nodules are identified. No evidence of pleural effusion or pleural thickening. Heart and Mediastinum: Prominent aortic arch. Heart size and shape are normal. No mediastinal widening or masses. No hilar or mediastinal lymphadenopathy. Bony Thorax: Bony thorax appears intact without fractures or deformities. Soft Tissues: Soft tissues overlying the chest wall are unremarkable. IMPRESSION: 1. Lungs show prominent bronchovascular markings, and a specific finding clinical correlation and further assessment are advised.Prominent aortic arch, suggesting mild dilatation as noted with previous CT. Electronically signed by Riddhi Gifford 04-07-2024 06:20 AM
[2024-04-07 06:36] LABS: Hematocrit (blood only) 31.9 % (42.0-52.0); Hemoglobin 10.9 g/dl (14.0-18.0); Mean Corpuscular Hgb Conc 34.2 g/dL (32.0-36.0); Mean Corpuscular Volume 87.9 fL (80.0-100.0); Mean Platelet Volume 11.4 fL (9.4-12.4); Platelet Count 181 K/uL (130-400); RDW Coefficient of Variation 16.5 % (11.5-14.5); RDW Standard Deviation 53.5 fL (36.4-46.3); Red Blood Count 3.63 M/uL (4.70-6.10); White Blood Count 8.49 K/ul (4.8-10.8)
[2024-04-07 06:53] LABS: BUN Creatinine Ratio 30.7 (10-20); Calcium 8.8 mg/dl (8.6-10.3); Potassium 3.8 mmol/L (3.5-5.1)
[2024-04-07] MEDS: FUROSEMIDE 40 MG/4 ML VIAL IV ONE (07:02)
[2024-04-07 07:06] LABS: Prothrombin Time 11.1 Seconds (9.0-12.0)
[2024-04-07 08:01] LABS: Appearance Urine Clear (Clear); Bilirubin Urine Negative (Negative); Blood Urine Negative (Negative); Color Urine Yellow; Glucose Urine UA Negative (Negative); Ketones Urine Negative (Negative); Leukocyte Esterase Urine Negative (Negative); Nitrite Urine Negative (Negative); Protein Urine Negative (Negative); Specific Gravity Urine 1.013 (1.000-1.030); Urobilinogen Urine Negative (Negative)
[2024-04-07] MEDS: predniSONE 20 MG TAB PO SCH (09:10)
[2024-04-07] MEDS: FUROSEMIDE 20 MG TAB PO SCH (09:10)
[2024-04-07] MEDS: amLODIPine BESYLATE 5 MG TAB PO SCH (12:13)
--- NOTE | 2024-04-07 16:07 | Electrocardiogram Report ---
Test Reason : Blood Pressure : */* mmHG Vent. Rate : 78 BPM Atrial Rate : 78 BPM P-R Int : 202 ms QRS Dur : 134 ms QT Int : 452 ms P-R-T Axes : 62 38 0 degrees QTcB Int : 515 ms Normal sinus rhythm Non-specific intra-ventricular conduction block Inferior infarct (cited on or before 02-Mar-1997) Abnormal ECG When compared with ECG of 03-Apr-2024 22:56, No significant change was found Confirmed by Michael Arnold ([id number]) on 04/07/2024 4:07:08 PM Referred By: REFERRED SELF Confirmed By: Michael Arnold
[2024-04-07] MEDS: LORazepam 0.5 MG TAB PO PRN (17:01)
[2024-04-07] MEDS ORDERED: LORazepam 2 MG/1 ML VIAL IV PRN (17:43)
[2024-04-07] MEDS: LORazepam 2 MG/1 ML VIAL IV STA (17:53)
--- NOTE | 2024-04-07 19:03 | Hospitalist Progress Note ---
Date of Service April 07, 2024 delayed entry date of service noted above Assessment & Plan (1) Acute exacerbation of chronic obstructive pulmonary disease: Plan: per admitting service notes with addendum: 88-year-old male with past medical history significant for type 2 diabetes, CKD stage III, dyslipidemia, hypothyroidism, COPD, paroxysmal atrial fibrillation, iliac artery aneurysm bilateral, hypertension, abdominal aortic aneurysm s/p repair, endovascular stent graft for abdominal aortic aneurysm, asymptomatic bilateral carotid artery stenosis, history of CAD, heart failure with reduced ejection fraction, osteoporosis, beta-blockers contraindicated, who lives at home alone and daughter lives close by was brought in because of frequent falls and found to have COPD exacerbation and coronavirus OC43 positive. Patient was sleeping and was woken up. Can tell his name. Can tell his date of . Knows that he is in the hospital. Knows the month. But could not tell the year. He says he was falling at home and that is the reason was brought to hospital. Says he did not his head. Says he did not lose consciousness. Denies any fevers. Denies chest pain. Denies shortness of breath. Has some cough. No sore throat. No runny nose. No abdominal pain. Somewhat difficult to get history from the patient. Called the daughter. As per daughter patient was falling frequently last couple of days. He seemed very weak. Has been coughing more than usual. And he could not explain properly how he was falling and seemed forgetful and daughter decided to bring him to the hospital. Acute COPD exacerbation -CTA chest okay -Possibly from coronavirus OC 43 infection -DuoNebs [id number]-[id number] and as needed -switch solumedrol to prednisone x5 days 04/06 on room air still has some BL wheeze continue Duonebs, Prednisone 04/07 Continue nebs, prednisone 04/08 Still having some mild bilateral scattered wheezing Chest x-ray: No pneumonia Taper prednisone to 20 mg p.o. daily in light of delirium Add Perforomist Pulmicort Continue nebs 4 times daily [place] -CT head and CT cervical spine no acute findings -PT OT recommending SNF, awaiting placement 04/07 awaiting placement Confusion - still has some confusion monitor closely 04/07 ativan PRN in light of cardiac meds Paroxysmal atrial fibrillation -On amiodarone and aspirin CKD stage III Acute Kidney Failure -Presents with creatinine 1.9 -at baseline Chronic heart failure with reduced ejection fraction -EF 50% echo 09/09/2023 -Has lower extremity edema -We will continue home Lasix Elevated troponin -demand ischemia, resolved Bilateral lower extremity edema -no DVT Hypertension -On Lasix - Amlodipine 5mg BID started add Hydralazine 25 mg p.o. twice daily Type 2 diabetes -Not on meds -SSI Hyperlipidemia -On statin History of CAD -On statin and aspirin -Not on beta-alexsandra because of slow resting heart rate and pulmonary disease History of abdominal aortic aneurysm s/p repair DVT prophylaxis Heparin on hold in light of elevated blood pressure Monitor closely Plan Pt is an 88 yo M w/ type 2 diabetes, CKD stage III, dyslipidemia, hypothyroidism, COPD, paroxysmal atrial fibrillation, iliac artery aneurysm bilateral, hypertension, abdominal aortic aneurysm s/p repair, endovascular stent graft for abdominal aortic aneurysm, asymptomatic bilateral carotid artery stenosis, history of CAD, heart failure with reduced ejection fraction, osteoporosis, beta-blockers contraindicated who was brought in because of frequent falls and found to be coronavirus OC43 positive with a COPD exacerbation. Was awaiting placement. Rehab and SNF placement denied by insurance. Family agreeable to taking him home with HH. Currently making arrangements Was treated for the following: Acute COPD exacerbation Non-covid coronavirus Infection Frequent falls at home Respiratory panel on admission noting coronavirus infection, non covid CTA chest unremarkable for acute changes DuoNebs [id number]-[id number] and as needed Oxygen supplementation as needed Completed prednisone course Supportive care Resolved at this time [place] CT head and CT cervical spine no acute findings PT OT recommending SNF, awaiting placement had fall overnight here in the hospital, CT head negative Acute metabolic and Toxic Encpehalopathy Psychiatry service consulted for delirium Previous provider discussed with Dr. Mccall EKG obtained, QTc is less than 500 started on Seroquel 25 mg p.o. at bedtime , currently discontinued PRN zyprexa Delirium precautions. Frequent reorientation, avoid sedating medications as able Hypertension On Lasix Amlodipine 5mg BID started added Hydralazine 25 mg p.o. twice daily BP improved, cont. to monitor Paroxysmal atrial fibrillation On amiodarone and aspirin monitor QTC CKD stage III Acute Kidney Failure -Presented with creatinine 1.9 -at baseline Chronic heart failure with reduced ejection fraction Echo with EF 50% echo 09/09/2023 appears euvolemic now continue home Lasix Elevated troponin demand ischemia, resolved Bilateral lower extremity edema no DVT Type 2 diabetes -Not on meds -SSI Hyperlipidemia -On statin History of CAD -On statin and aspirin -Not on beta-alexsandra because of slow resting heart rate and pulmonary disease History of abdominal aortic aneurysm s/p repair Diet: DMII, regular DVT prophylaxis: heparin SQ Dispo: d/c to SNF when accepted Admission and Anticipated Discharge Date Admission Date: April 04, 2024 Subjective ff up for COPD exacerbation Seen resting in bed, confused States he feels okay overall Denies shortness of breath Positive cough No other new symptoms Review of Systems Review of Systems: all noted and negative except for above Physical Exam Physical Exam: General-Confused, not in distress, speaks in sentences with no effort or accessory muscle use Eyes- anicteric Neck- no JVD Lungs- Mild expiratory wheeze bilaterally, scattered Heart- normal rate, regular rhythm; no murmurs Abdomen- normal bowel sounds, nondistended, soft, nontender Extremities- no pretibial edema, no calf tenderness Neuro- alert, oriented x 1; no gross focal neurologic deficits Skin- warm & dry Results & Data Results & Data Vital Signs (Past 12 Hours) Vital Signs Temp Pulse Pulse Resp BP Pulse Ox O2 Del Method 04/07/24 15:03 71 14 91 Room Air 04/07/24 14:34 73 04/07/24 14:34 36.5 C 76 20 163/85 H 93 Room Air 04/07/24 11:27 36.5 C 74 22 174/82 H 93 Room Air 04/07/24 10:52 72 18 93 Room Air 04/07/24 07:30 36.4 C L 76 20 179/87 H 91 Room Air 04/07/24 07:22 Room Air 04/07/24 07:08 92 H FiO2 04/07/24 15:03 21 04/07/24 14:34 04/07/24 14:34 04/07/24 11:27 04/07/24 10:52 04/07/24 07:30 04/07/24 07:22 04/07/24 07:08
[2024-04-07] MEDS: MELATONIN 3 MG TAB PO PRN (21:37)
[2024-04-07] MEDS: hydrALAZINE HCL 20 MG/ML VIAL IV PRN (21:53)
[2024-04-08] MEDS: predniSONE 20 MG TAB PO SCH (08:43)
[2024-04-08] MEDS: BUDESONIDE 0.25 MG/2 ML VIAL (PULMICORT) NEB SCH (09:34)
[2024-04-08] MEDS: FORMOTEROL 20 MCG/2 ML VIAL NEB SCH (09:35)
--- NOTE | 2024-04-08 11:18 | XRay Report ---
XR chest 1V portable CLINICAL HISTORY: wheezing, copd exacerbation COMPARISON STUDY: 04/07/2024 FINDINGS: Single view portable chest demonstrates no significant interval change and no acute cardiop ulmonary process. There is no airspace opacity or pleural effusion. Chronic prominence of the basilar lung markings is unchanged. Old right rib deformity noted. Fibrotic thickening in the right pulmonar y apex is redemonstrated. Postsurgical changes are noted in the right hilum. The heart size is within normal limits with left ventricular prominence. The thoracic aorta is contai ns calcified plaque and is ectatic. IMPRESSION: No acute process identified. ACT 112: Negative or not required by law. Electronically signed by: Olena Núñez M.D. 04/08/2024 11:15 AM
--- NOTE | 2024-04-08 12:16 | Psychiatric Consultation ---
Date of Consultation April 08, 2024 Impression / Recommendations Impression Diagnostically consistent with encephalopathy/delirium likely superimposed on mild to moderate cognitive impairment/dementia. Head imaging consistent with microvascular changes and atrophy suggestive of cognitive decline observed by family since AAA surgery/repair this fall. 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 Unfortunately there are no known medications to cure or shorten the duration of delirium; rather antipsychotics are used at times to help with sleep/appetite/psychomotor agitation and hallucinations if these symptoms are causing significant distress and/or interfering with acute safety. Duration of delirium varies broadly with persistent delirium (defined as lasting for weeks or months) occurring frequently with [id number]% of patients exhibiting some symptoms of delirium at 6 months after symptom onset, see:Vy Rehman., Robert Yañez., Nel Thakkar.et al.Delirium.Sarah Beth Rev Dis Primers6, 90 (2020). [email or web address]://[email or web address]. Goal in dementia is to avoid medication management of behaviors if possible by maximizing non-pharmacologic strategies for behavioral management. However, given worsening agitation/aggression could consider starting antipsychotic as risk/benefit profile now favors treatment. Note all antipsychotic medications carry black box warning for increased risk of all-cause mortality in setting of dementia. Overall, I spent a total of 65 minutes with this case including review of chart records, review of labwork, review of EKG QTc, direct evaluation of the patient at bedside, counseling the patient, discussion of the patient with the hospitalist provider, discussion with the psychiatric liason during clinical rounds, review of collateral historian information from the family and documentation in the electronic health record. (1) Delirium due to another medical condition: (2) Cognitive and behavioral changes: Plan -1-on-1 prn if increased agitation -Recheck EKG and if QTc is <500ms then would start seroquel 12.5 mg qhs and can titrate up to 25mg HS and then to 50mg HS for behavioral management as needed; would check EKG QTc routinely to ensure QTc remains <500ms. -Continue medical workup to rule out and treat any underlying causes contributing to potential delirium, avoid or limit use of deliriogenic medications (benzodiazepines, opioids, anticholinergics -Continue with delirium prevention measures: raising blinds during the day, closing at night, frequent re-orientation, contact with family/friends, explaining procedures/nursing care measures prior to physical contact, correct any hearing and visual impairments -For behavioral emergency: * If QTc is <500ms then: olanzapine 2.5 mg IM x 1 (DO NOT exceed 10mg per 24 hours, check EKG if IM dose required, NEVER co-administer with IM or IV benzodiazepines). * If QTc is >500ms then: ativan 0.25 or 0.5 mg IM or IV with caution that this can worsen and/or prolong delirium Psych History Identifying Data Nitin "Fuentes" is an 88 yo man with a history of type 2 diabetes, CKD stage III, dyslipidemia, hypothyroidism, COPD, paroxysmal atrial fibrillation, iliac artery aneurysm bilateral, hypertension, abdominal aortic aneurysm s/p repair, endovascular stent graft for abdominal aortic aneurysm, asymptomatic bilateral carotid artery stenosis, history of CAD, heart failure with reduced ejection fraction, osteoporosis admitted medically for COPD exacerbation and increased falls. Psychiatry consulted for medication recommendations for dementia with behavioral disturbance. Chief Complaint "I don't know". History of Present Illness Fuentes was admitted for increased falls and breathing difficulty. He's been increasingly confused and at times pulling out lines/leads and required soft restraints and IV ativan. Apparently quite confused over last two days, slightly more coherent today per his step-daughter who is at bedside. Additional collateral from step-daughter notable for increased cognitive difficulty and falls over recent months following AAA surgery in the fall. He is fiercely independent, stubborn and tends to refuse help from family. Has still been living independently and tending to his wood pellet stove but seems to be falling more and often downplays this. Today he is pleasant but confused. Oriented to person and city but not to hospital, why he is here, month nor year. Additional history per psych liason note from 04/08/2024: "Met with patient ("Fuentes") along with Dr. Mccall, for psych consult service. Patient resting in bed with eyes closed but responded to name and answered questions. Step daughter, Iman, at bedside. He was oriented to person, town/state college, and continued to report days of the week when asked the Month, reported it was " '27 " for the year. Patient remains confused, doesn't follow commands such as, "take a look outside your window", patient responded, "oh yeah I see it", despite never turning his head or open his eyes. He was able to provide some information and became tearful when discussing his children, "they live in my heart". Most information gathered from Iman. Iman reports she and her sister are POA (Iman manages medical and other sister assists with finances). Prior to hospitalization patient was living at home alone, he lives on one floor (made dinning room into a bedroom and has a bathroom) and manages his pellet stove on his own. Family brings him groceries/meals. However, he tends to eat snacks/sweets. As of the last few months, patient has been less active, more lounging and watching t.v. 16 years ago, he raised his step daughters (3); bio daughter and bio son are both (son recently 2 months ago, talked at times but mostly estranged). Patient is stubborn with "no filter" at baseline. He has a difficult time excepting help and is adamant to remain living at his home. In the past 2 weeks, patient has been more unsteady on his feet, using furniture for stability (refuses to use walker or cane). He is having trouble with word finding, losing train of thought during conversation. Family suspects several falls but patient will deny this. He recently was lying on the floor to clean pellet stove and did not have the strength to get back up, he called Iman, after crawling around for a while, before asking for help. Dr. Mccall discussed delirium (risk factors, causes, treatment) and will provide recommendations to help with agitation and/or restlessness. Iman agreeable and appreciative of recommendations." Allergies Allergy/AdvReac Type Severity Reaction Status Date / Time adhesive tape Allergy Unknown "USE PAPER Verified 04/04/24 04:03 TAPE" Home Medications Medication Instructions Recorded Confirmed Type amiodarone 200 mg tablet (Pacerone) 200 mg PO DAILY 12/15/19 04/04/24 History atorvastatin 80 mg tablet (Lipitor) 80 mg PO DAILY 12/15/19 04/04/24 History levothyroxine 100 mcg tablet 100 mcg PO DAILY 12/15/19 04/04/24 History furosemide 20 mg tablet 20 mg PO DAILY 12/17/22 04/04/24 History albuterol sulfate 90 mcg/actuation 90 mcg inhalation Q6H PRN sob 04/04/24 04/04/24 History aerosol inhaler aspirin 81 mg tablet,delayed 81 mg PO DAILY 04/04/24 04/04/24 History release fluticasone 250 mcg-salmeterol 50 1 inh inhalation BID 04/04/24 04/04/24 History mcg/dose blistr powdr for inhalation Patient History Medical History HTN (hypertension), benign COPD (chronic obstructive pulmonary disease) CHF (congestive heart failure) Hypothyroidism Surgical History History of lung surgery H/O parathyroidectomy Social History Smoking Status: Former smoker Hx Alcohol Use: Yes Alcohol type: beer Alcohol type Comment: rarely Hx Substance Use: No Preferred Language: Malawian Communication Ability: Effective Visual Impairment: Limited Hearing Ability: Normal [employer] Required: No Beliefs That Will Affect Care: None marital status: / Current Living Situation: Alone current occupational status: retired Feels Safe at Home: Yes Assistive Devices: None Physical Exam Psychiatric: Orientation: alert, oriented to person and cooperative; + not oriented to place and + not oriented to time Eye Contact: + poor eye contact Vital Signs (Past 24 Hours): Last Vital Signs Temp 36.6 C 04/08/24 10:47 Pulse 72 04/08/24 11:09 Resp 16 04/08/24 11:09 BP 169/77 H 04/08/24 10:47 Pulse Ox 93 04/08/24 11:09 O2 Del Method Room Air 04/08/24 11:09 O2 Flow Rate 1 04/04/24 09:30 FiO2 21 04/07/24 15:03 Results & Data (PSY) Medications Administered Albuterol (Albut/Ipratrop 3mg/0.5mg Neb 3 Ml Vial) 3 ml NEB QIDR [facility]; Protocol Stop: 05/04/24 06:59 Last Admin: 04/08/24 11:09 Dose: 3 ml Documented By: Admin: 04/08/24 07:29 Dose: 3 ml Documented By: Admin: 04/07/24 19:54 Dose: 3 ml Documented By: Admin: 04/07/24 15:03 Dose: 3 ml Documented By: [id number] Admin: 04/07/24 10:52 Dose: 3 ml Documented By: Admin: 04/07/24 07:25 Dose: Not Given Documented By: [id number] Admin: 04/07/24 02:54 Dose: 3 ml Documented By: KYNel Admin: 04/06/24 19:32 Dose: 3 ml Documented By: Admin: 04/06/24 13:51 Dose: 3 ml Documented By: Admin: 04/06/24 10:09 Dose: 3 ml Documented By: Admin: 04/06/24 06:13 Dose: 3 ml Documented By: Admin: 04/05/24 19:56 Dose: 3 ml Documented By: Admin: 04/05/24 15:37 Dose: 3 ml Documented By: Admin: 04/05/24 10:20 Dose: 3 ml Documented By: Admin: 04/05/24 07:40 Dose: 3 ml Documented By: Admin: 04/04/24 20:40 Dose: 3 ml Documented By: Admin: 04/04/24 14:25 Dose: 3 ml Documented By: JOHN(2) Admin: 04/04/24 11:11 Dose: 3 ml Documented By: JOHN(2) Admin: 04/04/24 07:59 Dose: 3 ml Documented By: IRENE(2) Albuterol (Albut/Ipratrop 3mg/0.5mg Neb 3 Ml Vial) 3 ml NEB Q4H PRN; Protocol PRN Reason: Shortness Of Breath Or Wheezing Stop: 05/04/24 03:27 Last Admin: 04/05/24 02:07 Dose: 3 ml Documented By: PAMELA Amiodarone HCl (Amiodarone 200 Mg Tab) 200 mg PO DAILY VINOD Stop: 05/04/24 08:59 Last Admin: 04/08/24 08:41 Dose: 200 mg Documented By: Admin: 04/07/24 09:09 Dose: 200 mg Documented By: ESAnthony Admin: 04/06/24 09:10 Dose: 200 mg Documented By: Admin: 04/05/24 08:18 Dose: 200 mg Documented By: Admin: 04/04/24 09:27 Dose: 200 mg Documented By: HORACE Amlodipine Besylate (Amlodipine Besylate 5 Mg Tab) 5 mg PO BID VINOD Stop: 05/07/24 11:44 Last Admin: 04/08/24 08:41 Dose: 5 mg Documented By: Admin: 04/07/24 20:37 Dose: 5 mg Documented By: Admin: 04/07/24 12:13 Dose: 5 mg Documented By: ABELARDO Aspirin (Aspirin 81 Mg Ectab) 81 mg PO DAILY VINOD Stop: 05/04/24 08:59 Last Admin: 04/06/24 09:10 Dose: 81 mg Documented By: Admin: 04/05/24 08:18 Dose: 81 mg Documented By: Admin: 04/04/24 09:27 Dose: 81 mg Documented By: HORACE Atorvastatin Calcium (Atorvastatin 40 Mg Tab) 80 mg PO DAILY VINOD Stop: 05/04/24 08:59 Last Admin: 04/08/24 08:40 Dose: 80 mg Documented By: Admin: 04/07/24 09:09 Dose: 80 mg Documented By: Admin: 04/06/24 09:10 Dose: 80 mg Documented By: Admin: 04/05/24 08:18 Dose: 80 mg Documented By: Admin: 04/04/24 09:27 Dose: 80 mg Documented By: HORACE Budesonide (Budesonide 0.25 Mg/2 Ml Vial (Pulmicort)) 0.25 mg NEB BIDR VINOD Stop: 05/08/24 08:09 Last Admin: 04/08/24 09:34 Dose: Not Given Documented By: KRIS Fluticasone/Vilanterol (Fluticasone/Vilanterol 200/25mcg 14 Puffs/Inhaler) 1 puffs INH DAILY VINOD Stop: 05/04/24 08:59 Last Admin: 04/08/24 08:41 Dose: 1 puffs Documented By: Admin: 04/07/24 09:09 Dose: 1 puffs Documented By: Admin: 04/06/24 09:11 Dose: 1 puffs Documented By: Admin: 04/05/24 08:18 Dose: 1 puffs Documented By: Admin: 04/04/24 09:27 Dose: 1 puffs Documented By: HORACE Formoterol Fumarate (Formoterol 20 Mcg/2 Ml Vial) 20 mcg NEB BIDR [facility] Stop: 05/08/24 08:14 Last Admin: 04/08/24 09:35 Dose: Not Given Documented By: KRIS Furosemide (Furosemide 20 Mg Tab) 20 mg PO DAILY [facility] Stop: 05/08/24 08:59 Last Admin: 04/08/24 08:41 Dose: 20 mg Documented By: Admin: 04/07/24 09:10 Dose: 20 mg Documented By: ESL Heparin Sodium (Porcine) (Heparin Sod 5,000 Unit/0.5 Ml Vial) 5,000 units SQ Q8 [facility] Stop: 05/04/24 05:59 Last Admin: 04/06/24 21:28 Dose: 5,000 units Documented By: Admin: 04/06/24 15:12 Dose: 5,000 units Documented By: Admin: 04/06/24 05:47 Dose: 5,000 units Documented By: PEYTON(2) Admin: 04/05/24 20:55 Dose: 5,000 units Documented By: PEYTON(2) Admin: 04/05/24 15:06 Dose: 5,000 units Documented By: Admin: 04/05/24 06:03 Dose: 5,000 units Documented By: Admin: 04/04/24 22:43 Dose: 5,000 units Documented By: Admin: 04/04/24 14:41 Dose: 5,000 units Documented By: Admin: 04/04/24 06:04 Dose: 5,000 units Documented By: AN Hydralazine HCl (Hydralazine Hcl 20 Mg/Ml Vial) 5 mg IV Q6H PRN PRN Reason: systolic bp > 160 Stop: 05/06/24 19:16 Last Admin: 04/07/24 21:53 Dose: 5 mg Documented By: KRISTEL Insulin Aspart (Insulin Aspart Per Unit Charge) 0 units SC ACHS [facility] Stop: 05/04/24 07:29 Last Admin: 04/08/24 08:42 Dose: Not Given Documented By: Admin: 04/07/24 20:37 Dose: 1 units Documented By: KRISTEL Co-signed By: CLARENCE Admin: 04/07/24 17:07 Dose: Not Given Documented By: Admin: 04/07/24 13:36 Dose: Not Given Documented By: Admin: 04/07/24 09:07 Dose: Not Given Documented By: ABELARDO Co-signed By: CHRIS Admin: 04/06/24 21:28 Dose: 2 units Documented By: PEYTON Co-signed By: DAYAMI Admin: 04/06/24 17:28 Dose: 1 units Documented By: ABELARDO Co-signed By: CHRIS Admin: 04/06/24 12:38 Dose: 1 units Documented By: ABELARDO Co-signed By: CHRIS Admin: 04/06/24 09:15 Dose: 1 units Documented By: ABELARDO Co-signed By: CHRIS Admin: 04/05/24 21:04 Dose: 1 units Documented By: PEYTON(2) Co-signed By: PRIYA Admin: 04/05/24 17:46 Dose: 2 units Documented By: RADHA Co-signed By: BETO Admin: 04/05/24 12:42 Dose: 3 units Documented By: RADHA Co-signed By: DELFIN Admin: 04/05/24 08:59 Dose: Not Given Documented By: Admin: 04/04/24 20:52 Dose: 2 units Documented By: EVANGELINA Co-signed By: CAMPOS Admin: 04/04/24 17:39 Dose: 2 units Documented By: DELFIN Co-signed By: UMESH Admin: 04/04/24 13:26 Dose: 2 units Documented By: HORACE Co-signed By: Admin: 04/04/24 10:06 Dose: 1,000 units Documented By: HORACE Co-signed By: BA Levothyroxine Sodium (Levothyroxine Sodium 100 Mcg Tablet) 100 mcg PO DAILYBB VINOD Stop: 05/04/24 06:29 Last Admin: 04/08/24 05:39 Dose: 100 mcg Documented By: Admin: 04/07/24 06:26 Dose: Not Given Documented By: Admin: 04/06/24 05:49 Dose: 100 mcg Documented By: PEYTON(2) Admin: 04/05/24 06:03 Dose: 100 mcg Documented By: Admin: 04/04/24 06:01 Dose: 100 mcg Documented By: KAT Lorazepam (Lorazepam 0.5 Mg Tab) 0.25 mg PO DAILY PRN PRN Reason: agitation Stop: 05/06/24 19:04 Last Admin: 04/07/24 17:01 Dose: 0.25 mg Documented By: ABELARDO Melatonin (Melatonin 3 Mg Tab) 3 mg PO HS PRN PRN Reason: Sleep Stop: 05/07/24 20:50 Last Admin: 04/07/24 21:37 Dose: 3 mg Documented By: KRISTEL Nystatin (Nystatin Cr 15 Gm Tube) 1 appln EXT BID VINOD Stop: 05/04/24 08:59 Last Admin: 04/08/24 08:42 Dose: 1 appln Documented By: Admin: 04/07/24 20:37 Dose: 1 appln Documented By: Admin: 04/07/24 09:10 Dose: 1 appln Documented By: Admin: 04/06/24 19:43 Dose: 1 appln Documented By: Admin: 04/06/24 09:11 Dose: 1 appln Documented By: Admin: 04/05/24 20:57 Dose: 1 appln Documented By: PEYTON(2) Admin: 04/05/24 08:19 Dose: 1 appln Documented By: Admin: 04/04/24 20:53 Dose: 1 appln Documented By: Admin: 04/04/24 09:28 Dose: 1 appln Documented By: HORACE Prednisone (Prednisone 20 Mg Tab) 20 mg PO DAILY [facility] Stop: 05/08/24 08:59 Last Admin: 04/08/24 08:43 Dose: 20 mg Documented By: RADHA Coding Level of Care Code 27105 IN/OBS CONSULT LVL 4,60M Diagnoses Delirium due to another medical condition F05 Cognitive and behavioral changes R41.89; R46.89
--- NOTE | 2024-04-08 13:01 | Electrocardiogram Report ---
Test Reason : Blood Pressure : */* mmHG Vent. Rate : 74 BPM Atrial Rate : 74 BPM P-R Int : 196 ms QRS Dur : 132 ms QT Int : 440 ms P-R-T Axes : 64 40 24 degrees QTcB Int : 488 ms Normal sinus rhythm Non-specific intra-ventricular conduction block possible Inferior infarct (cited on or before 02-Mar-1997) Cannot rule out Anterior infarct (cited on or before 09-Mar-1997) Abnormal ECG When compared with ECG of 07-Apr-2024 03:53, No significant change was found Confirmed by Michael Arnold ([id number]) on 04/08/2024 1:00:51 PM Referred By: REFERRED SELF Confirmed By: Michael Arnold
--- NOTE | 2024-04-08 16:58 | Hospitalist Progress Note ---
Date of Service April 08, 2024 Assessment & Plan (1) Acute exacerbation of chronic obstructive pulmonary disease: Plan: per admitting service notes with addendum: 88-year-old male with past medical history significant for type 2 diabetes, CKD stage III, dyslipidemia, hypothyroidism, COPD, paroxysmal atrial fibrillation, iliac artery aneurysm bilateral, hypertension, abdominal aortic aneurysm s/p repair, endovascular stent graft for abdominal aortic aneurysm, asymptomatic bilateral carotid artery stenosis, history of CAD, heart failure with reduced ejection fraction, osteoporosis, beta-blockers contraindicated, who lives at home alone and daughter lives close by was brought in because of frequent falls and found to have COPD exacerbation and coronavirus OC43 positive. Patient was sleeping and was woken up. Can tell his name. Can tell his date of . Knows that he is in the hospital. Knows the month. But could not tell the year. He says he was falling at home and that is the reason was brought to hospital. Says he did not his head. Says he did not lose consciousness. Denies any fevers. Denies chest pain. Denies shortness of breath. Has some cough. No sore throat. No runny nose. No abdominal pain. Somewhat difficult to get history from the patient. Called the daughter. As per daughter patient was falling frequently last couple of days. He seemed very weak. Has been coughing more than usual. And he could not explain properly how he was falling and seemed forgetful and daughter decided to bring him to the hospital. Acute COPD exacerbation -CTA chest okay -Possibly from coronavirus OC 43 infection -DuoNebs [id number] and as needed -switch solumedrol to prednisone x5 days 04/06 on room air still has some BL wheeze continue Duonebs, Prednisone 04/08 Still having some mild bilateral scattered wheezing Chest x-ray: No pneumonia Taper prednisone to 20 mg p.o. daily in light of delirium Add Perforomist, Pulmicort Continue nebs 4 times daily Falls -CT head and CT cervical spine no acute findings -PT OT recommending SNF, awaiting placement 04/08 awaiting placement Confusion - still has some confusion monitor closely 04/08 Psychiatry service consulted for delirium Discussed with Dr. Mccall EKG obtained, QTc C is less than 500 Will start Seroquel 25 mg p.o. at bedtime Paroxysmal atrial fibrillation -On amiodarone and aspirin CKD stage III Acute Kidney Failure -Presents with creatinine 1.9 -at baseline Chronic heart failure with reduced ejection fraction -EF 50% echo 09/09/2023 -Has lower extremity edema -We will continue home Lasix Elevated troponin -demand ischemia, resolved Bilateral lower extremity edema -no DVT Hypertension -On Lasix - Amlodipine 5mg BID started add Hydralazine 25 mg p.o. twice daily Type 2 diabetes -Not on meds -SSI Hyperlipidemia -On statin History of CAD -On statin and aspirin -Not on beta-alexsandra because of slow resting heart rate and pulmonary disease History of abdominal aortic aneurysm s/p repair DVT prophylaxis Heparin on hold in light of elevated blood pressure Monitor closely Admission and Anticipated Discharge Date Admission Date: April 04, 2024 Subjective Follow-up for sleep exacerbation, delirium, etc. Seen around 8:30 AM, patient is awake and alert, comfortable, not in distress States breathing is okay Denies shortness of breath, cough No other new symptoms Pleasantly confused Per RN, patient was able to rest at night Review of Systems Review of Systems: all noted and negative except for above Physical Exam Physical Exam: General- Pleasantly confused, awake and alert, not in distress, speaks in sentences with no effort or accessory muscle use Eyes- anicteric Neck- no JVD Lungs- Mild scattered wheezing bilaterally, good air entry bilaterally Heart- normal rate, regular rhythm; no murmurs Abdomen- normal bowel sounds, nondistended, soft, nontender Extremities- no pretibial edema, no calf tenderness Neuro- Pleasantly confused,no gross focal neurologic deficits Skin- warm & dry Results & Data Results & Data Vital Signs (Past 12 Hours) Vital Signs Temp Pulse Pulse Resp BP Pulse Ox O2 Del Method 04/08/24 15:38 68 15 95 Room Air 04/08/24 14:57 36.7 C 72 18 177/93 H 95 Room Air 04/08/24 14:00 71 04/08/24 11:09 72 16 93 Room Air 04/08/24 10:47 36.6 C 74 16 169/77 H 95 Room Air 04/08/24 08:00 Room Air 04/08/24 07:29 93 H 18 92 Room Air 04/08/24 07:24 36.5 C 71 16 170/81 H 92 Room Air 04/08/24 07:00 71 FiO2 04/08/24 15:38 21 04/08/24 14:57 04/08/24 14:00 04/08/24 11:09 04/08/24 10:47 04/08/24 08:00 04/08/24 07:29 04/08/24 07:24 04/08/24 07:00 all noted and reviewed including below
[2024-04-08] MEDS: hydrALAZINE HCL 25 MG TAB PO SCH (17:29)
[2024-04-08] MEDS: QUEtiapine FUMARATE 25 MG TABLET PO SCH (21:14)
--- NOTE | 2024-04-09 16:22 | Hospitalist Progress Note ---
Date of Service April 09, 2024 Assessment & Plan (1) Acute exacerbation of chronic obstructive pulmonary disease: Plan: per admitting service notes with addendum: 88-year-old male with past medical history significant for type 2 diabetes, CKD stage III, dyslipidemia, hypothyroidism, COPD, paroxysmal atrial fibrillation, iliac artery aneurysm bilateral, hypertension, abdominal aortic aneurysm s/p repair, endovascular stent graft for abdominal aortic aneurysm, asymptomatic bilateral carotid artery stenosis, history of CAD, heart failure with reduced ejection fraction, osteoporosis, beta-blockers contraindicated, who lives at home alone and daughter lives close by was brought in because of frequent falls and found to have COPD exacerbation and coronavirus OC43 positive. Patient was sleeping and was woken up. Can tell his name. Can tell his date of . Knows that he is in the hospital. Knows the month. But could not tell the year. He says he was falling at home and that is the reason was brought to hospital. Says he did not his head. Says he did not lose consciousness. Denies any fevers. Denies chest pain. Denies shortness of breath. Has some cough. No sore throat. No runny nose. No abdominal pain. Somewhat difficult to get history from the patient. Called the daughter. As per daughter patient was falling frequently last couple of days. He seemed very weak. Has been coughing more than usual. And he could not explain properly how he was falling and seemed forgetful and daughter decided to bring him to the hospital. Acute COPD exacerbation -CTA chest okay -Possibly from coronavirus OC 43 infection -DuoNebs [id number] and as needed -switch solumedrol to prednisone x5 days 04/06 on room air still has some BL wheeze continue Duonebs, Prednisone 04/08 Still having some mild bilateral scattered wheezing Chest x-ray: No pneumonia Taper prednisone to 20 mg p.o. daily in light of delirium Add Perforomist, Pulmicort Continue nebs 4 times daily 04/09 Improving Continue prednisone 20 mg p.o. daily Continue nebs next Falls -CT head and CT cervical spine no acute findings -PT OT recommending SNF, awaiting placement 04/08 awaiting placement Confusion - still has some confusion monitor closely 04/08 Psychiatry service consulted for delirium Discussed with Dr. Mccall EKG obtained, QTc C is less than 500 Will start Seroquel 25 mg p.o. at bedtime 04/09 Much more calm, no agitation noted today EKG today revealing QT corrected 505 Hold off on Seroquel for now Repeat EKG tomorrow Hypertension -On Lasix - Amlodipine 5mg BID started add Hydralazine 25 mg p.o. twice daily 04/09 increase Hydralazine to 50 mg p.o. twice daily Paroxysmal atrial fibrillation -On amiodarone and aspirin CKD stage III Acute Kidney Failure -Presents with creatinine 1.9 -at baseline Chronic heart failure with reduced ejection fraction -EF 50% echo 09/09/2023 -Has lower extremity edema -We will continue home Lasix Elevated troponin -demand ischemia, resolved Bilateral lower extremity edema -no DVT Type 2 diabetes -Not on meds -SSI Hyperlipidemia -On statin History of CAD -On statin and aspirin -Not on beta-alexsandra because of slow resting heart rate and pulmonary disease History of abdominal aortic aneurysm s/p repair DVT prophylaxis Resume heparin Monitor closely Admission and Anticipated Discharge Date Admission Date: April 04, 2024 Subjective Follow-up for COPD exacerbation, etc. Seen resting in bed, sitting up, awake and alert, calm, cooperative Pleasantly confused States he feels better overall No shortness of breath, cough No other new symptoms Review of Systems Review of Systems: all noted and negative except for above Physical Exam Physical Exam: General- oriented x 1-2, not in distress, speaks in sentences with no effort or accessory muscle use Eyes- anicteric Neck- no JVD Lungs- Very faint intermittent wheeze bilaterally , Good air entry bilaterally Heart- normal rate, regular rhythm; no murmurs Abdomen- normal bowel sounds, nondistended, soft, nontender Extremities- no pretibial edema, no calf tenderness Neuro- alert, oriented x1-2; no gross focal neurologic deficits Skin- warm & dry Results & Data Results & Data Vital Signs (Past 12 Hours) Vital Signs Temp Pulse Pulse Resp BP BP Pulse Ox 04/09/24 15:45 36.4 C L 70 18 141/67 H 87 L 04/09/24 15:28 68 04/09/24 15:24 67 16 04/09/24 11:34 36.6 C 69 19 137/63 95 04/09/24 11:27 67 17 94 04/09/24 10:48 04/09/24 08:02 36.4 C L 65 20 158/75 H 92 04/09/24 07:19 61 16 90 04/09/24 07:18 76 04/09/24 04:26 36.4 C L 75 18 167/68 H 91 O2 Del Method 04/09/24 15:45 Room Air 04/09/24 15:28 04/09/24 15:24 Room Air 04/09/24 11:34 Room Air 04/09/24 11:27 Room Air 04/09/24 10:48 Room Air 04/09/24 08:02 Room Air 04/09/24 07:19 Room Air 04/09/24 07:18 04/09/24 04:26 Room Air all noted and reviewed including below
[2024-04-09] MEDS: hydrALAZINE TAB 50 MG TAB PO SCH (21:44)
[2024-04-10] MEDS: ACETAMINOPHEN 325 MG TAB PO PRN (08:24)
[2024-04-10 09:16] LABS: Basophils # (auto) 0.02 K/uL (0.00-0.20); Basophils % (auto) 0.2 %; Eosinophils # (auto) 0.01 K/uL (0.00-0.50); Eosinophils % (auto) 0.1 %; Hematocrit (blood only) 35.6 % (42.0-52.0); Hemoglobin 11.6 g/dl (14.0-18.0); Immature Granulocytes # (auto) 0.25 K/uL (0.01-0.20); Immature Granulocytes % (auto) 2.8 %; Lymphocytes # (auto) 0.77 K/uL (1.20-3.40); Lymphocytes % (auto) 8.7 %; Mean Corpuscular Hemoglobin 28.7 pg (25.0-34.0); Mean Corpuscular Hgb Conc 32.6 g/dL (32.0-36.0); Mean Corpuscular Volume 88.1 fL (80.0-100.0); Mean Platelet Volume 11.4 fL (9.4-12.4); Monocytes # (auto) 0.91 K/uL (0.11-0.59); Monocytes % (auto) 10.2 %; Neutrophils # (auto) 6.94 K/uL (1.40-6.50); Platelet Count 169 K/uL (130-400); RDW Coefficient of Variation 16.4 % (11.5-14.5); RDW Standard Deviation 53.3 fL (36.4-46.3); Red Blood Count 4.04 M/uL (4.70-6.10)
[2024-04-10 09:33] LABS: BUN Creatinine Ratio 37.1 (10-20); Calcium 8.6 mg/dl (8.6-10.3); Potassium 3.6 mmol/L (3.5-5.1)
--- NOTE | 2024-04-10 10:34 | Electrocardiogram Report ---
Test Reason : Blood Pressure : */* mmHG Vent. Rate : 65 BPM Atrial Rate : 65 BPM P-R Int : 202 ms QRS Dur : 124 ms QT Int : 486 ms P-R-T Axes : 65 61 49 degrees QTcB Int : 505 ms Normal sinus rhythm Possible Inferior infarct (cited on or before 02-Mar-1997) Anterior infarct (cited on or before 09-Mar-1997) Abnormal ECG When compared with ECG of 08-Apr-2024 12:42, T wave inversion less evident in Inferior leads Nonspecific T wave abnormality now evident in Anterior leads Confirmed by Guillaume Julian ([id number]) on 04/10/2024 10:33:28 AM Referred By: REFERRED SELF Confirmed By: Guillaume Julian
--- NOTE | 2024-04-10 12:33 | Hospitalist Progress Note ---
Date of Service April 10, 2024 Assessment & Plan (1) Acute exacerbation of chronic obstructive pulmonary disease: Plan: (1) Acute exacerbation of chronic obstructive pulmonary disease: Plan: per admitting service notes with addendum: 88-year-old male with past medical history significant for type 2 diabetes, CKD stage III, dyslipidemia, hypothyroidism, COPD, paroxysmal atrial fibrillation, iliac artery aneurysm bilateral, hypertension, abdominal aortic aneurysm s/p repair, endovascular stent graft for abdominal aortic aneurysm, asymptomatic bilateral carotid artery stenosis, history of CAD, heart failure with reduced e jection fraction, osteoporosis, beta-blockers contraindicated, who lives at home alone and daughter lives close by was brought in because of frequent falls and found to have COPD exacerbation and coronavirus OC43 positive. Patient was sleeping and was woken up. Can tell his name. Can tell his date of . Knows that he is in the hospital. Knows the month. But could not tell the year. He says he was falling at home and that is the reason was brought to hospital. Says he did not his head. Says he did not lose consciousness. Denies any fevers. Denies chest pain. Denies shortness of breath. Has some cough. No sore throat. No runny nose. No abdominal pain. Somewhat difficult to get history from the patient. Called the daughter. As per daughter patient was falling frequently last couple of days. He seemed very weak. Has been coughing more than usual. And he could not explain properly how he was falling and seemed forgetful and daughter decided to bring him to the hospital. Acute COPD exacerbation -CTA chest okay -Possibly from coronavirus OC 43 infection -DuoNebs [id number] and as needed -switch solumedrol to prednisone x5 days 04/06 on room air still has some BL wheeze continue Duonebs, Prednisone 04/08 Still having some mild bilateral scattered wheezing Chest x-ray: No pneumonia Taper prednisone to 20 mg p.o. daily in light of delirium Add Perforomist, Pulmicort Continue nebs 4 times daily 04/09 Improving Continue prednisone 20 mg p.o. daily Continue nebs next 04/10 Continues to improve DC prednisone Continue nebs [place] -CT head and CT cervical spine no acute findings -PT OT recommending SNF, awaiting placement 04/08 awaiting placement Confusion - still has some confusion monitor closely 04/08 Psychiatry service consulted for delirium Discussed with Dr. Mccall EKG obtained, QTc C is less than 500 Will start Seroquel 25 mg p.o. at bedtime 04/09 Much more calm, no agitation noted today EKG today revealing QT corrected 505 Hold off on Seroquel for now Repeat EKG tomorrow 04/10 QT is 525 Patient is more calm and cooperative today Hold off on Seroquel Hypertension -On Lasix - Amlodipine 5mg BID started add Hydralazine 25 mg p.o. twice daily 04/09 increase Hydralazine to 50 mg p.o. twice daily Monitor BP Paroxysmal atrial fibrillation -On amiodarone and aspirin ]-monitor QT corrected CKD stage III Acute Kidney Failure -Presents with creatinine 1.9 -at baseline Chronic heart failure with reduced ejection fraction -EF 50% echo 09/09/2023 -Has lower extremity edema -We will continue home Lasix Elevated troponin -demand ischemia, resolved Bilateral lower extremity edema -no DVT Type 2 diabetes -Not on meds -SSI Hyperlipidemia -On statin History of CAD -On statin and aspirin -Not on beta-alexsandra because of slow resting heart rate and pulmonary disease History of abdominal aortic aneurysm s/p repair DVT prophylaxis heparin Monitor closely Admission and Anticipated Discharge Date Admission Date: April 04, 2024 Subjective Follow-up for COPD exacerbation, etc. Seen resting in bed side chair, comfortable, not in distress . On 5 L of O2, titrated down to 3 L, patient 96% next States he feels better today Breathing continues to improve Less cough No chest pain, palpitations, dizziness Was able to sleep better overnight as per [employer] No other new symptoms Review of Systems Review of Systems: all noted and negative except for above Physical Exam Physical Exam: General- oriented x 1-2, not in distress, speaks in sentences with no effort or accessory muscle use Eyes- anicteric Neck- no JVD Lungs- very faint intermittent rhonchi BL no wheezing Heart- normal rate, regular rhythm; no murmurs Abdomen- normal bowel sounds, nondistended, soft, nontender Extremities- no pretibial edema, no calf tenderness Neuro- alert, oriented x 2; no gross focal neurologic deficits Skin- warm & dry Results & Data Results & Data Vital Signs (Past 12 Hours) Vital Signs Temp Pulse Pulse Resp BP Pulse Ox O2 Del Method 04/10/24 12:26 36.4 C L 72 20 128/72 95 Nasal Cannula 04/10/24 11:13 66 17 94 Nasal Cannula 04/10/24 09:54 Nasal Cannula 04/10/24 07:49 36.6 C 70 20 169/79 H 100 Nebulizer 04/10/24 07:32 67 16 94 Nasal Cannula 04/10/24 07:05 66 04/10/24 04:00 36.5 C 72 20 156/75 H 91 Nasal Cannula O2 Flow Rate 04/10/24 12:26 2 04/10/24 11:13 2 04/10/24 09:54 2 04/10/24 07:49 04/10/24 07:32 3 04/10/24 07:05 04/10/24 04:00 2 all noted and reviewed including below
--- NOTE | 2024-04-11 15:16 | Electrocardiogram Report ---
Test Reason : Blood Pressure : */* mmHG Vent. Rate : 68 BPM Atrial Rate : 68 BPM P-R Int : 194 ms QRS Dur : 128 ms QT Int : 494 ms P-R-T Axes : 72 42 56 degrees QTcB Int : 525 ms Normal sinus rhythm Non-specific intra-ventricular conduction block Possible Inferior infarct (cited on or before 02-Mar-1997) Cannot rule out Anterior infarct (cited on or before 09-Mar-1997) Abnormal ECG When compared with ECG of 09-Apr-2024 10:21, Nonspecific T wave abnormality has replaced inverted T waves in Inferior leads Confirmed by Guillaume Julian ([id number]) on 04/11/2024 3:16:30 PM Referred By: REFERRED SELF Confirmed By: Guillaume Julian
--- NOTE | 2024-04-11 17:44 | Hospitalist Progress Note ---
Date of Service April 11, 2024 Assessment & Plan (1) Acute exacerbation of chronic obstructive pulmonary disease: Plan: (1) Acute exacerbation of chronic obstructive pulmonary disease: Plan: per admitting service notes with addendum: 88-year-old male with past medical history significant for type 2 diabetes, CKD stage III, dyslipidemia, hypothyroidism, COPD, paroxysmal atrial fibrillation, iliac artery aneurysm bilateral, hypertension, abdominal aortic aneurysm s/p repair, endovascular stent graft for abdominal aortic aneurysm, asymptomatic bilateral carotid artery stenosis, history of CAD, heart failure with reduced e jection fraction, osteoporosis, beta-blockers contraindicated, who lives at home alone and daughter lives close by was brought in because of frequent falls and found to have COPD exacerbation and coronavirus OC43 positive. Patient was sleeping and was woken up. Can tell his name. Can tell his date of . Knows that he is in the hospital. Knows the month. But could not tell the year. He says he was falling at home and that is the reason was brought to hospital. Says he did not his head. Says he did not lose consciousness. Denies any fevers. Denies chest pain. Denies shortness of breath. Has some cough. No sore throat. No runny nose. No abdominal pain. Somewhat difficult to get history from the patient. Called the daughter. As per daughter patient was falling frequently last couple of days. He seemed very weak. Has been coughing more than usual. And he could not explain properly how he was falling and seemed forgetful and daughter decided to bring him to the hospital. Acute COPD exacerbation -CTA chest okay -Possibly from coronavirus OC 43 infection -DuoNebs [id number] and as needed -switch solumedrol to prednisone x5 days 04/06 on room air still has some BL wheeze continue Duonebs, Prednisone 04/08 Still having some mild bilateral scattered wheezing Chest x-ray: No pneumonia Taper prednisone to 20 mg p.o. daily in light of delirium Add Perforomist, Pulmicort Continue nebs 4 times daily 04/09 Improving Continue prednisone 20 mg p.o. daily Continue nebs next 04/10 Continues to improve DC prednisone Continue nebs 04/11 Continues to improve Weaned off O2 late in the afternoon Continue prednisone times at least 2 more days Continue nebs [place] -CT head and CT cervical spine no acute findings -PT OT recommending SNF, awaiting placement 04/11 awaiting placement Confusion - still has some confusion monitor closely 04/08 Psychiatry service consulted for delirium Discussed with Dr. Mccall EKG obtained, QTc C is less than 500 Will start Seroquel 25 mg p.o. at bedtime 04/09 Much more calm, no agitation noted today EKG today revealing QT corrected 505 Hold off on Seroquel for now Repeat EKG tomorrow 04/10 QT is 525 Patient is more calm and cooperative today Hold off on Seroquel 04/11 EKG pending Hypertension -On Lasix - Amlodipine 5mg BID started add Hydralazine 25 mg p.o. twice daily 04/09 increase Hydralazine to 50 mg p.o. twice daily 04/12 BP improving Paroxysmal atrial fibrillation -On amiodarone and aspirin -monitor QT corrected CKD stage III Acute Kidney Failure -Presents with creatinine 1.9 -at baseline Chronic heart failure with reduced ejection fraction -EF 50% echo 09/09/2023 -Has lower extremity edema -We will continue home Lasix Elevated troponin -demand ischemia, resolved Bilateral lower extremity edema -no DVT Type 2 diabetes -Not on meds -SSI Hyperlipidemia -On statin History of CAD -On statin and aspirin -Not on beta-alexsandra because of slow resting heart rate and pulmonary disease History of abdominal aortic aneurysm s/p repair DVT prophylaxis heparin Monitor closely Admission and Anticipated Discharge Date Admission Date: April 04, 2024 Subjective Seen resting in bed, in good spirits, on 2 L of O2 States he feels much better overall No shortness of breath, cough No pain No other new symptoms Review of Systems Review of Systems: all noted and negative except for above Physical Exam Physical Exam: General- oriented x 1, not in distress, speaks in sentences with no effort or accessory muscle use Eyes- anicteric Neck- no JVD Lungs-Very minimal, intermittent rhonchi bilaterally, good air entry bilaterally Heart- normal rate, regular rhythm; no murmurs Abdomen- normal bowel sounds, nondistended, soft, nontender Extremities- no pretibial edema, no calf tenderness Neuro- alert, oriented x 1; no new gross focal neurologic deficits Skin- warm & dry Results & Data Results & Data Vital Signs (Past 12 Hours) Vital Signs Temp Pulse Pulse Resp BP BP Pulse Ox 04/11/24 15:27 36.7 C 73 18 124/56 L 92 04/11/24 14:29 88 19 92 04/11/24 13:51 78 04/11/24 11:18 36.0 C L 70 20 134/71 98 04/11/24 10:49 72 20 97 04/11/24 08:41 04/11/24 07:26 36.3 C L 65 20 137/67 98 04/11/24 07:13 68 04/11/24 07:08 70 18 94 O2 Del Method O2 Flow Rate FiO2 04/11/24 15:27 Room Air 04/11/24 14:29 Room Air 21 04/11/24 13:51 04/11/24 11:18 Nasal Cannula 3 04/11/24 10:49 Nasal Cannula 3 04/11/24 08:41 Nasal Cannula 2 04/11/24 07:26 Nasal Cannula 3 04/11/24 07:13 04/11/24 07:08 Nasal Cannula 2 all noted and reviewed including below
--- NOTE | 2024-04-12 15:43 | Electrocardiogram Report ---
Test Reason : Blood Pressure : */* mmHG Vent. Rate : 75 BPM Atrial Rate : 75 BPM P-R Int : 184 ms QRS Dur : 130 ms QT Int : 418 ms P-R-T Axes : 61 39 6 degrees QTcB Int : 466 ms Normal sinus rhythm Non-specific intra-ventricular conduction block Inferior infarct (cited on or before 02-Mar-1997) Cannot rule out Anteroseptal infarct (cited on or before 09-Mar-1997) Abnormal ECG When compared with ECG of 10-Apr-2024 08:48, Questionable change in initial forces of Anteroseptal leads T wave inversion now evident in Inferior leads QT has shortened Confirmed by Guillaume Julian ([id number]) on 04/12/2024 3:43:06 PM Referred By: REFERRED SELF Confirmed By: Guillaume Julian
--- NOTE | 2024-04-12 17:09 | Hospitalist Progress Note ---
Date of Service April 12, 2024 Assessment & Plan (1) Acute exacerbation of chronic obstructive pulmonary disease: Plan: (1) Acute exacerbation of chronic obstructive pulmonary disease: Plan: per admitting service notes with addendum: 88-year-old male with past medical history significant for type 2 diabetes, CKD stage III, dyslipidemia, hypothyroidism, COPD, paroxysmal atrial fibrillation, iliac artery aneurysm bilateral, hypertension, abdominal aortic aneurysm s/p repair, endovascular stent graft for abdominal aortic aneurysm, asymptomatic bilateral carotid artery stenosis, history of CAD, heart failure with reduced e jection fraction, osteoporosis, beta-blockers contraindicated, who lives at home alone and daughter lives close by was brought in because of frequent falls and found to have COPD exacerbation and coronavirus OC43 positive. Patient was sleeping and was woken up. Can tell his name. Can tell his date of . Knows that he is in the hospital. Knows the month. But could not tell the year. He says he was falling at home and that is the reason was brought to hospital. Says he did not his head. Says he did not lose consciousness. Denies any fevers. Denies chest pain. Denies shortness of breath. Has some cough. No sore throat. No runny nose. No abdominal pain. Somewhat difficult to get history from the patient. Called the daughter. As per daughter patient was falling frequently last couple of days. He seemed very weak. Has been coughing more than usual. And he could not explain properly how he was falling and seemed forgetful and daughter decided to bring him to the hospital. Acute COPD exacerbation -CTA chest okay -from coronavirus OC 43 infection -DuoNebs [id number] and as needed was having mild bilateral scattered wheezing placed on 2 L O2 Chest x-ray: No pneumonia Added Perforomist, Pulmicort Tapered prednisone to 20 mg p.o. daily in light of delirium nebs 4 times daily 04/12 clinically improved now on room air [place] -CT head and CT cervical spine no acute findings -PT OT recommending SNF, awaiting placement 04/11 awaiting placement Confusion 04/08 Psychiatry service consulted for delirium Discussed with Dr. Mccall EKG obtained, QTc C is less than 500 Will start Seroquel 25 mg p.o. at bedtime 04/09 Much more calm, no agitation noted today EKG today revealing QT corrected 505 Hold off on Seroquel for now Repeat EKG tomorrow 04/10 QT is 525 Patient is more calm and cooperative today Hold off on Seroquel 04/11 QTc < 500 calm, cooperative: Seroquel not needed any longer Hypertension -On Lasix - Amlodipine 5mg BID started added Hydralazine 25 mg p.o. twice daily 04/11 increased Hydralazine to 50 mg p.o. twice daily 04/12 BP improved Paroxysmal atrial fibrillation -On amiodarone and aspirin -monitor QT corrected CKD stage III Acute Kidney Failure -Presents with creatinine 1.9 -at baseline Chronic heart failure with reduced ejection fraction -EF 50% echo 09/09/2023 - appears euvolemic now -continue home Lasix Elevated troponin -demand ischemia, resolved Bilateral lower extremity edema -no DVT Type 2 diabetes -Not on meds -SSI Hyperlipidemia -On statin History of CAD -On statin and aspirin -Not on beta-alexsandra because of slow resting heart rate and pulmonary disease History of abdominal aortic aneurysm s/p repair DVT prophylaxis heparin Monitor closely d/c to SNF when accepted Admission and Anticipated Discharge Date Admission Date: April 04, 2024 Subjective ff up for COPD exacerbation, etc seen resting in bed pleasantly confused, calm and cooperative on room air in good spirits states he feels fine overall no cough, SOB no other symptoms Review of Systems Review of Systems: all noted and negative except for above Physical Exam Physical Exam: General- oriented x 1, not in distress, speaks in sentences with no effort or accessory muscle use Eyes- anicteric Neck- no JVD Lungs- very faint intermittent rhonchi BL Heart- normal rate, regular rhythm; no murmurs Abdomen- normal bowel sounds, nondistended, soft, nontender Extremities- no pretibial edema, no calf tenderness Neuro- alert, oriented x 1; no gross focal neurologic deficits Skin- warm & dry Results & Data Results & Data Vital Signs (Past 12 Hours) Vital Signs Temp Pulse Pulse Resp BP Pulse Ox O2 Del Method 04/12/24 17:05 92 Room Air 04/12/24 15:41 36.6 C 74 18 133/64 96 Room Air 04/12/24 14:56 69 18 93 Room Air 04/12/24 14:51 93 Room Air 04/12/24 13:17 70 04/12/24 13:16 95 Room Air 04/12/24 11:08 36.3 C L 68 20 147/71 H 96 Nasal Cannula 04/12/24 10:00 Nasal Cannula 04/12/24 09:53 67 18 95 Nasal Cannula 04/12/24 07:38 36.6 C 66 18 144/72 H 93 Nasal Cannula 04/12/24 05:14 80 18 85 L Room Air O2 Flow Rate 04/12/24 17:05 04/12/24 15:41 04/12/24 14:56 04/12/24 14:51 04/12/24 13:17 04/12/24 13:16 04/12/24 11:08 1 04/12/24 10:00 1 04/12/24 09:53 2 04/12/24 07:38 1 04/12/24 05:14 all noted and reviewed including below
--- NOTE | 2024-04-13 14:06 | Hospitalist Progress Note ---
Date of Service April 13, 2024 Assessment & Plan (1) Acute exacerbation of chronic obstructive pulmonary disease: Plan: Acute exacerbation of chronic obstructive pulmonary disease: per admitting service notes with addendum: 88 yo M w/ type 2 diabetes, CKD stage III, dyslipidemia, hypothyroidism, COPD, paroxysmal atrial fibrillation, iliac artery aneurysm bilateral, hypertension, abdominal aortic aneurysm s/p repair, endovascular stent graft for abdominal aortic aneurysm, asymptomatic bilateral carotid artery stenosis, history of CAD, heart failure with reduced ejection fraction, osteoporosis, beta-blockers contraindicated, who lives at home alone and daughter lives close by was brought in because of frequent falls and found to have COPD exacerbation and coronavirus OC43 positive. Patient was sleeping and was woken up. Can tell his name. Can tell his date of . Knows that he is in the hospital. Knows the month. But could not tell the year. He says he was falling at home and that is the reason was brought to hospital. Says he did not his head. Says he did not lose consciousness. Denies any fevers. Denies chest pain. Denies shortness of breath. Has some cough. No sore throat. No runny nose. No abdominal pain. Somewhat difficult to get history from the patient. Called the daughter. As per daughter patient was falling frequently last couple of days. He seemed very weak. Has been coughing more than usual. And he could not explain properly how he was falling and seemed forgetful and daughter decided to bring him to the hospital. Acute COPD exacerbation -CTA chest okay -from coronavirus OC 43 infection -DuoNebs [id number] and as needed was having mild bilateral scattered wheezing placed on 2 L O2 Chest x-ray: No pneumonia Added Perforomist, Pulmicort Tapered prednisone to 20 mg p.o. daily in light of delirium nebs 4 times daily 04/12 clinically improved now on room air Falls -CT head and CT cervical spine no acute findings -PT OT recommending SNF, awaiting placement Confusion 04/08 Psychiatry service consulted for delirium Discussed with Dr. Mccall EKG obtained, QTc C is less than 500 start Seroquel 25 mg p.o. at bedtime 04/09 Much more calm, no agitation noted today EKG today revealing QT corrected 505 Hold off on Seroquel for now Repeat EKG tomorrow 04/10 QT is 525 Patient is more calm and cooperative today Hold off on Seroquel 04/11 QTc < 500 calm, cooperative: Seroquel not needed any longer Hypertension -On Lasix - Amlodipine 5mg BID started added Hydralazine 25 mg p.o. twice daily 04/11 increased Hydralazine to 50 mg p.o. twice daily 04/12 BP improved Paroxysmal atrial fibrillation -On amiodarone and aspirin -monitor QT corrected CKD stage III Acute Kidney Failure -Presents with creatinine 1.9 -at baseline Chronic heart failure with reduced ejection fraction -EF 50% echo 09/09/2023 - appears euvolemic now -continue home Lasix Elevated troponin -demand ischemia, resolved Bilateral lower extremity edema -no DVT Type 2 diabetes -Not on meds -SSI Hyperlipidemia -On statin History of CAD -On statin and aspirin -Not on beta-alexsandra because of slow resting heart rate and pulmonary disease History of abdominal aortic aneurysm s/p repair DVT prophylaxis heparin Monitor closely d/c to SNF when accepted Admission and Anticipated Discharge Date Admission Date: April 04, 2024 Subjective Pt seen in follow up for COPD exacerbation, etc seen resting in bed, daughter present at the bedside pt is calm and cooperative, on room air Denies chest pain, shortness of breath, has some cough - difficulty to cough any sputum up Review of Systems Review of Systems: All systems reviewed & are unremarkable except as noted in Subjective Physical Exam Physical Exam: General- WD/WN elderly M in NAD, on RA Eyes- anicteric Neck- no JVD Lungs- very faint intermittent rhonchi BL Heart- normal rate, regular rhythm; no murmurs Abdomen- normal bowel sounds, nondistended, soft, nontender Extremities- no pretibial edema, no calf tenderness Neuro- awake, alert, able to answer simple questions, no gross focal neurologic deficits Skin- warm & dry Results & Data Results & Data Vital Signs (Past 12 Hours) Vital Signs Temp Pulse Resp BP Pulse Ox O2 Del Method 04/13/24 12:12 36.8 C 65 15 138/64 92 Room Air 04/13/24 11:44 68 16 92 Room Air 04/13/24 09:13 36.5 C 68 15 112/68 91 Room Air 04/13/24 07:50 67 20 91 Room Air 04/13/24 03:30 36.5 C 69 18 118/68 93 Room Air Medications Administered Current Inpatient Medications Acetaminophen (Acetaminophen 325 Mg Tab) 650 mg PO Q4H PRN PRN Reason: Pain or Fever Stop: 05/04/24 03:27 Last Admin: 04/11/24 21:36 Dose: 650 mg Albuterol (Albut/Ipratrop 3mg/0.5mg Neb 3 Ml Vial) 3 ml NEB QIDR [facility]; Protocol Stop: 05/04/24 06:59 Last Admin: 04/13/24 11:44 Dose: 3 ml Albuterol (Albut/Ipratrop 3mg/0.5mg Neb 3 Ml Vial) 3 ml NEB Q4H PRN; Protocol PRN Reason: Shortness Of Breath Or Wheezing Stop: 05/04/24 03:27 Last Admin: 04/05/24 02:07 Dose: 3 ml Amiodarone HCl (Amiodarone 200 Mg Tab) 200 mg PO DAILY [facility] Stop: 05/04/24 08:59 Last Admin: 04/13/24 09:29 Dose: 200 mg Amlodipine Besylate (Amlodipine Besylate 5 Mg Tab) 5 mg PO BID [facility] Stop: 05/07/24 11:44 Last Admin: 04/13/24 09:30 Dose: 5 mg Aspirin (Aspirin 81 Mg Ectab) 81 mg PO DAILY [facility] Stop: 05/04/24 08:59 Last Admin: 04/06/24 09:10 Dose: 81 mg Atorvastatin Calcium (Atorvastatin 40 Mg Tab) 80 mg PO DAILY [facility] Stop: 05/04/24 08:59 Last Admin: 04/13/24 10:34 Dose: 80 mg Budesonide (Budesonide 0.25 Mg/2 Ml Vial (Pulmicort)) 0.25 mg NEB BIDR [facility] Stop: 05/08/24 08:09 Last Admin: 04/13/24 07:49 Dose: 0.25 mg Dextrose (Dextrose 50% 50 Ml Syringe) 25 - 50 ml IV UD PRN; Protocol PRN Reason: Hypoglycemia Protocol Stop: 05/04/24 03:27 Fluticasone/Vilanterol (Fluticasone/Vilanterol 200/25mcg 14 Puffs/Inhaler) 1 puffs INH DAILY [facility] Stop: 05/04/24 08:59 Last Admin: 04/13/24 09:33 Dose: 1 puffs Formoterol Fumarate (Formoterol 20 Mcg/2 Ml Vial) 20 mcg NEB BIDR [facility] Stop: 05/08/24 08:14 Last Admin: 04/13/24 07:49 Dose: 20 mcg Furosemide (Furosemide 20 Mg Tab) 20 mg PO DAILY [facility] Stop: 05/08/24 08:59 Last Admin: 04/13/24 09:34 Dose: 20 mg Glucagon (Glucagon For Inj 1 Mg Vial) 1 mg SQ UD PRN; Protocol PRN Reason: Hypoglycemia Protocol Stop: 05/04/24 03:27 Glucose (Glucose 40% Gel 15 Gm Tube) 15 - 30 gm PO UD PRN; Protocol PRN Reason: Hypoglycemia Protocol Stop: 05/04/24 03:27 Glucose (Glucose 10 Tab/Tube) 4 - 8 tab PO UD PRN; Protocol PRN Reason: Hypoglycemia Protocol Stop: 05/04/24 03:27 Heparin Sodium (Porcine) (Heparin Sod 5,000 Unit/0.5 Ml Vial) 5,000 units SQ Q8 [facility] Stop: 05/04/24 05:59 Last Admin: 04/13/24 13:37 Dose: 5,000 units Hydralazine HCl (Hydralazine Hcl 20 Mg/Ml Vial) 5 mg IV Q6H PRN PRN Reason: systolic bp > 160 Stop: 05/06/24 19:16 Last Admin: 04/07/24 21:53 Dose: 5 mg Hydralazine HCl (Hydralazine Tab 50 Mg Tab) 50 mg PO BID [facility] Stop: 05/09/24 20:59 Last Admin: 04/13/24 09:34 Dose: 50 mg Insulin Aspart (Insulin Aspart Per Unit Charge) 0 units SC ACHS [facility] Stop: 05/04/24 07:29 Last Admin: 04/13/24 13:35 Dose: 1 units Levothyroxine Sodium (Levothyroxine Sodium 100 Mcg Tablet) 100 mcg PO DAILYBB [facility] Stop: 05/04/24 06:29 Last Admin: 04/13/24 05:59 Dose: 100 mcg Lorazepam (Lorazepam 0.5 Mg Tab) 0.25 mg PO DAILY PRN PRN Reason: agitation Stop: 05/06/24 19:04 Last Admin: 04/07/24 17:01 Dose: 0.25 mg Lorazepam (Lorazepam 2 Mg/1 Ml Vial) 0.25 mg IV Q12H PRN PRN Reason: agitation Stop: 05/07/24 17:44 Melatonin (Melatonin 3 Mg Tab) 3 mg PO HS PRN PRN Reason: Sleep Stop: 05/07/24 20:50 Last Admin: 04/12/24 20:54 Dose: 3 mg Miconazole Nitrate (Miconazole Nitrate Powder 85 Gm) 1 appln EXT PRN PRN PRN Reason: Affected Skin Folds Stop: 05/05/24 10:45 Miscellaneous (Carbohydrates For Hypoglycemia ) 15 - 30 gm PO UD PRN PRN Reason: Hypoglycemia Protocol Stop: 05/04/24 03:27 Nystatin (Nystatin Cr 15 Gm Tube) 1 appln EXT BID [facility] Stop: 05/04/24 08:59 Last Admin: 04/13/24 09:34 Dose: 1 appln Olanzapine (Olanzapine 10 Mg/2.1 Ml Sdv) 2.5 mg IM Q4H PRN PRN Reason: Agitation Stop: 05/07/24 05:21 Polyethylene Glycol (Polyethylene (Miralax) 17 Gm Pack) 17 gm PO DAILY PRN PRN Reason: Constipation Stop: 05/05/24 13:47
--- NOTE | 2024-04-14 13:18 | Hospitalist Progress Note ---
Date of Service April 14, 2024 Assessment & Plan (1) Acute exacerbation of chronic obstructive pulmonary disease: Plan: Acute exacerbation of chronic obstructive pulmonary disease: per admitting service notes with addendum: 88 yo M w/ type 2 diabetes, CKD stage III, dyslipidemia, hypothyroidism, COPD, paroxysmal atrial fibrillation, iliac artery aneurysm bilateral, hypertension, abdominal aortic aneurysm s/p repair, endovascular stent graft for abdominal aortic aneurysm, asymptomatic bilateral carotid artery stenosis, history of CAD, heart failure with reduced ejection fraction, osteoporosis, beta-blockers contraindicated, who lives at home alone and daughter lives close by was brought in because of frequent falls and found to have COPD exacerbation and coronavirus OC43 positive. Patient was sleeping and was woken up. Can tell his name. Can tell his date of . Knows that he is in the hospital. Knows the month. But could not tell the year. He says he was falling at home and that is the reason was brought to hospital. Says he did not his head. Says he did not lose consciousness. Denies any fevers. Denies chest pain. Denies shortness of breath. Has some cough. No sore throat. No runny nose. No abdominal pain. Somewhat difficult to get history from the patient. Called the daughter. As per daughter patient was falling frequently last couple of days. He seemed very weak. Has been coughing more than usual. And he could not explain properly how he was falling and seemed forgetful and daughter decided to bring him to the hospital. Acute COPD exacerbation -CTA chest okay -from coronavirus OC 43 infection -DuoNebs [id number] and as needed was having mild bilateral scattered wheezing placed on 2 L O2 Chest x-ray: No pneumonia Added Perforomist, Pulmicort Tapered prednisone to 20 mg p.o. daily in light of delirium nebs 4 times daily 04/12 clinically improved now on room air Falls -CT head and CT cervical spine no acute findings -PT OT recommending SNF, awaiting placement Confusion 04/08 Psychiatry service consulted for delirium Discussed with Dr. Mccall EKG obtained, QTc C is less than 500 start Seroquel 25 mg p.o. at bedtime 04/09 Much more calm, no agitation noted today EKG today revealing QT corrected 505 Hold off on Seroquel for now Repeat EKG tomorrow 04/10 QT is 525 Patient is more calm and cooperative today Hold off on Seroquel 04/11 QTc < 500 calm, cooperative: Seroquel not needed any longer Hypertension -On Lasix - Amlodipine 5mg BID started added Hydralazine 25 mg p.o. twice daily 04/11 increased Hydralazine to 50 mg p.o. twice daily 04/12 BP improved Paroxysmal atrial fibrillation -On amiodarone and aspirin -monitor QT corrected CKD stage III Acute Kidney Failure -Presents with creatinine 1.9 -at baseline Chronic heart failure with reduced ejection fraction -EF 50% echo 09/09/2023 - appears euvolemic now -continue home Lasix Elevated troponin -demand ischemia, resolved Bilateral lower extremity edema -no DVT Type 2 diabetes -Not on meds -SSI Hyperlipidemia -On statin History of CAD -On statin and aspirin -Not on beta-alexsandra because of slow resting heart rate and pulmonary disease History of abdominal aortic aneurysm s/p repair DVT prophylaxis heparin Monitor closely d/c to SNF when accepted Admission and Anticipated Discharge Date Admission Date: April 04, 2024 Subjective Pt seen in follow up for COPD exacerbation, etc seen resting in bed, daughter present at the bedside yesterday, currently pt alone in the room pt is calm and cooperative, on room air Denies chest pain, shortness of breath, has some cough - difficulty to cough any sputum up Review of Systems Review of Systems: All systems reviewed & are unremarkable except as noted in Subjective Physical Exam Physical Exam: General- WD/WN elderly M in NAD, on RA Eyes- anicteric Neck- no JVD Lungs- faint intermittent rhonchi BL Heart- normal rate, regular rhythm; no murmurs Abdomen- normal bowel sounds, nondistended, soft, nontender Extremities- no pretibial edema, no calf tenderness Neuro- awake, alert, able to answer simple questions, no gross focal neurologic deficits Skin- warm & dry Results & Data Results & Data Vital Signs (Past 12 Hours) Vital Signs Temp Pulse Pulse Resp BP Pulse Ox O2 Del Method 04/14/24 11:47 36.8 C 78 18 131/77 91 Room Air 04/14/24 11:22 66 04/14/24 11:22 Room Air 04/14/24 10:56 75 18 93 Room Air 04/14/24 08:13 36.3 C L 69 18 148/68 H 90 Room Air 04/14/24 06:55 71 18 91 Room Air 04/14/24 02:28 36.8 C 67 20 152/68 H 91 Room Air Medications Administered Current Inpatient Medications Acetaminophen (Acetaminophen 325 Mg Tab) 650 mg PO Q4H PRN PRN Reason: Pain or Fever Stop: 05/04/24 03:27 Last Admin: 04/11/24 21:36 Dose: 650 mg Albuterol (Albut/Ipratrop 3mg/0.5mg Neb 3 Ml Vial) 3 ml NEB QIDR [facility]; Protocol Stop: 05/04/24 06:59 Last Admin: 04/14/24 10:56 Dose: 3 ml Albuterol (Albut/Ipratrop 3mg/0.5mg Neb 3 Ml Vial) 3 ml NEB Q4H PRN; Protocol PRN Reason: Shortness Of Breath Or Wheezing Stop: 05/04/24 03:27 Last Admin: 04/05/24 02:07 Dose: 3 ml Amiodarone HCl (Amiodarone 200 Mg Tab) 200 mg PO DAILY [facility] Stop: 05/04/24 08:59 Last Admin: 04/14/24 08:41 Dose: 200 mg Amlodipine Besylate (Amlodipine Besylate 5 Mg Tab) 5 mg PO BID [facility] Stop: 05/07/24 11:44 Last Admin: 04/14/24 08:41 Dose: 5 mg Aspirin (Aspirin 81 Mg Ectab) 81 mg PO DAILY [facility] Stop: 05/04/24 08:59 Last Admin: 04/06/24 09:10 Dose: 81 mg Atorvastatin Calcium (Atorvastatin 40 Mg Tab) 80 mg PO DAILY [facility] Stop: 05/04/24 08:59 Last Admin: 04/14/24 08:40 Dose: 80 mg Budesonide (Budesonide 0.25 Mg/2 Ml Vial (Pulmicort)) 0.25 mg NEB BIDR [facility] Stop: 05/08/24 08:09 Last Admin: 04/14/24 06:54 Dose: 0.25 mg Dextrose (Dextrose 50% 50 Ml Syringe) 25 - 50 ml IV UD PRN; Protocol PRN Reason: Hypoglycemia Protocol Stop: 05/04/24 03:27 Fluticasone/Vilanterol (Fluticasone/Vilanterol 200/25mcg 14 Puffs/Inhaler) 1 puffs INH DAILY [facility] Stop: 05/04/24 08:59 Last Admin: 04/14/24 08:42 Dose: 1 puffs Formoterol Fumarate (Formoterol 20 Mcg/2 Ml Vial) 20 mcg NEB BIDR [facility] Stop: 05/08/24 08:14 Last Admin: 04/14/24 06:55 Dose: 20 mcg Furosemide (Furosemide 20 Mg Tab) 20 mg PO DAILY [facility] Stop: 05/08/24 08:59 Last Admin: 04/14/24 08:41 Dose: 20 mg Glucagon (Glucagon For Inj 1 Mg Vial) 1 mg SQ UD PRN; Protocol PRN Reason: Hypoglycemia Protocol Stop: 05/04/24 03:27 Glucose (Glucose 40% Gel 15 Gm Tube) 15 - 30 gm PO UD PRN; Protocol PRN Reason: Hypoglycemia Protocol Stop: 05/04/24 03:27 Glucose (Glucose 10 Tab/Tube) 4 - 8 tab PO UD PRN; Protocol PRN Reason: Hypoglycemia Protocol Stop: 05/04/24 03:27 Heparin Sodium (Porcine) (Heparin Sod 5,000 Unit/0.5 Ml Vial) 5,000 units SQ Q8 [facility] Stop: 05/04/24 05:59 Last Admin: 04/14/24 05:53 Dose: 5,000 units Hydralazine HCl (Hydralazine Hcl 20 Mg/Ml Vial) 5 mg IV Q6H PRN PRN Reason: systolic bp > 160 Stop: 05/06/24 19:16 Last Admin: 04/07/24 21:53 Dose: 5 mg Hydralazine HCl (Hydralazine Tab 50 Mg Tab) 50 mg PO BID [facility] Stop: 05/09/24 20:59 Last Admin: 04/14/24 08:41 Dose: 50 mg Insulin Aspart (Insulin Aspart Per Unit Charge) 0 units SC ACHS [facility] Stop: 05/04/24 07:29 Last Admin: 04/14/24 13:04 Dose: 2 units Levothyroxine Sodium (Levothyroxine Sodium 100 Mcg Tablet) 100 mcg PO DAILYBB [facility] Stop: 05/04/24 06:29 Last Admin: 04/14/24 05:53 Dose: 100 mcg Lorazepam (Lorazepam 0.5 Mg Tab) 0.25 mg PO DAILY PRN PRN Reason: agitation Stop: 05/06/24 19:04 Last Admin: 04/07/24 17:01 Dose: 0.25 mg Lorazepam (Lorazepam 2 Mg/1 Ml Vial) 0.25 mg IV Q12H PRN PRN Reason: agitation Stop: 05/07/24 17:44 Melatonin (Melatonin 3 Mg Tab) 3 mg PO HS PRN PRN Reason: Sleep Stop: 05/07/24 20:50 Last Admin: 04/13/24 21:18 Dose: 3 mg Miconazole Nitrate (Miconazole Nitrate Powder 85 Gm) 1 appln EXT PRN PRN PRN Reason: Affected Skin Folds Stop: 05/05/24 10:45 Miscellaneous (Carbohydrates For Hypoglycemia ) 15 - 30 gm PO UD PRN PRN Reason: Hypoglycemia Protocol Stop: 05/04/24 03:27 Nystatin (Nystatin Cr 15 Gm Tube) 1 appln EXT BID [facility] Stop: 05/04/24 08:59 Last Admin: 04/14/24 08:42 Dose: 1 appln Olanzapine (Olanzapine 10 Mg/2.1 Ml Sdv) 2.5 mg IM Q4H PRN PRN Reason: Agitation Stop: 05/07/24 05:21 Polyethylene Glycol (Polyethylene (Miralax) 17 Gm Pack) 17 gm PO DAILY PRN PRN Reason: Constipation Stop: 05/05/24 13:47
--- NOTE | 2024-04-15 17:34 | Hospitalist Progress Note ---
Date of Service April 15, 2024 Assessment & Plan (1) Acute exacerbation of chronic obstructive pulmonary disease: Plan: Acute exacerbation of chronic obstructive pulmonary disease: per admitting service notes with addendum: 88 yo M w/ type 2 diabetes, CKD stage III, dyslipidemia, hypothyroidism, COPD, paroxysmal atrial fibrillation, iliac artery aneurysm bilateral, hypertension, abdominal aortic aneurysm s/p repair, endovascular stent graft for abdominal aortic aneurysm, asymptomatic bilateral carotid artery stenosis, history of CAD, heart failure with reduced ejection fraction, osteoporosis, beta-blockers contraindicated, who lives at home alone and daughter lives close by was brought in because of frequent falls and found to have COPD exacerbation and coronavirus OC43 positive. Patient was sleeping and was woken up. Can tell his name. Can tell his date of . Knows that he is in the hospital. Knows the month. But could not tell the year. He says he was falling at home and that is the reason was brought to hospital. Says he did not his head. Says he did not lose consciousness. Denies any fevers. Denies chest pain. Denies shortness of breath. Has some cough. No sore throat. No runny nose. No abdominal pain. Somewhat difficult to get history from the patient. Called the daughter. As per daughter patient was falling frequently last couple of days. He seemed very weak. Has been coughing more than usual. And he could not explain properly how he was falling and seemed forgetful and daughter decided to bring him to the hospital. Acute COPD exacerbation -CTA chest okay -from coronavirus OC 43 infection -DuoNebs [id number] and as needed was having mild bilateral scattered wheezing placed on 2 L O2 Chest x-ray: No pneumonia Added Perforomist, Pulmicort Tapered prednisone to 20 mg p.o. daily in light of delirium nebs 4 times daily clinically improved now on room air Falls -CT head and CT cervical spine no acute findings -PT OT recommending SNF, awaiting placement Confusion 04/08 Psychiatry service consulted for delirium Discussed with Dr. Mccall EKG obtained, QTc C is less than 500 start Seroquel 25 mg p.o. at bedtime 04/09 Much more calm, no agitation noted today EKG today revealing QT corrected 505 Hold off on Seroquel for now 04/10 QT is 525 Patient is more calm and cooperative today Hold off on Seroquel 04/11 QTc < 500 calm, cooperative: Seroquel not needed any longer Hypertension -On Lasix - Amlodipine 5mg BID started added Hydralazine 25 mg p.o. twice daily 04/11 increased Hydralazine to 50 mg p.o. twice daily 04/12 BP improved Paroxysmal atrial fibrillation -On amiodarone and aspirin -monitor QT corrected CKD stage III Acute Kidney Failure -Presents with creatinine 1.9 -at baseline Chronic heart failure with reduced ejection fraction -EF 50% echo 09/09/2023 - appears euvolemic now -continue home Lasix Elevated troponin -demand ischemia, resolved Bilateral lower extremity edema -no DVT Type 2 diabetes -Not on meds -SSI Hyperlipidemia -On statin History of CAD -On statin and aspirin -Not on beta-alexsandra because of slow resting heart rate and pulmonary disease History of abdominal aortic aneurysm s/p repair DVT prophylaxis heparin Monitor closely d/c to SNF when accepted Admission and Anticipated Discharge Date Admission Date: April 04, 2024 Subjective Pt seen in follow up for COPD exacerbation, etc seen resting in bed in NAD, PT at the bedside pt is calm and cooperative, on room air Denies chest pain, shortness of breath, has some cough encouraged and worked w/ flutter valve Review of Systems Review of Systems: All systems reviewed & are unremarkable except as noted in Subjective Physical Exam Physical Exam: General- WD/WN elderly M in NAD, on RA Eyes- anicteric Neck- no JVD Lungs- faint intermittent rhonchi BL Heart- normal rate, regular rhythm; no murmurs Abdomen- normal bowel sounds, nondistended, soft, nontender Extremities- no pretibial edema, no calf tenderness Neuro- awake, alert, able to answer simple questions, no gross focal neurologic deficits Skin- warm & dry Results & Data Results & Data Vital Signs (Past 12 Hours) Vital Signs Temp Pulse Resp BP Pulse Ox O2 Del Method O2 Flow Rate 04/15/24 17:00 36.5 C 66 16 134/57 L 94 Room Air 04/15/24 14:08 77 16 94 Nasal Cannula 2 04/15/24 12:13 36.7 C 71 18 116/57 L 92 Nasal Cannula 2 04/15/24 11:27 95 Nasal Cannula 2 04/15/24 10:12 66 18 93 Nasal Cannula 3 04/15/24 08:25 Nasal Cannula 2 04/15/24 08:07 36.7 C 65 18 130/52 L 92 Nasal Cannula 2 04/15/24 07:09 62 18 92 Nasal Cannula 2 Medications Administered Current Inpatient Medications Acetaminophen (Acetaminophen 325 Mg Tab) 650 mg PO Q4H PRN PRN Reason: Pain or Fever Stop: 05/04/24 03:27 Last Admin: 04/11/24 21:36 Dose: 650 mg Albuterol (Albut/Ipratrop 3mg/0.5mg Neb 3 Ml Vial) 3 ml NEB QIDR VINOD; Protocol Stop: 05/04/24 06:59 Last Admin: 04/15/24 14:08 Dose: 3 ml Albuterol (Albut/Ipratrop 3mg/0.5mg Neb 3 Ml Vial) 3 ml NEB Q4H PRN; Protocol PRN Reason: Shortness Of Breath Or Wheezing Stop: 05/04/24 03:27 Last Admin: 04/05/24 02:07 Dose: 3 ml Amiodarone HCl (Amiodarone 200 Mg Tab) 200 mg PO DAILY [facility] Stop: 05/04/24 08:59 Last Admin: 04/15/24 08:41 Dose: 200 mg Amlodipine Besylate (Amlodipine Besylate 5 Mg Tab) 5 mg PO BID [facility] Stop: 05/07/24 11:44 Last Admin: 04/15/24 08:40 Dose: 5 mg Aspirin (Aspirin 81 Mg Ectab) 81 mg PO DAILY [facility] Stop: 05/04/24 08:59 Last Admin: 04/06/24 09:10 Dose: 81 mg Atorvastatin Calcium (Atorvastatin 40 Mg Tab) 80 mg PO DAILY [facility] Stop: 05/04/24 08:59 Last Admin: 04/15/24 08:40 Dose: 80 mg Budesonide (Budesonide 0.25 Mg/2 Ml Vial (Pulmicort)) 0.25 mg NEB BIDR [facility] Stop: 05/08/24 08:09 Last Admin: 04/15/24 07:09 Dose: 0.25 mg Dextrose (Dextrose 50% 50 Ml Syringe) 25 - 50 ml IV UD PRN; Protocol PRN Reason: Hypoglycemia Protocol Stop: 05/04/24 03:27 Fluticasone/Vilanterol (Fluticasone/Vilanterol 200/25mcg 14 Puffs/Inhaler) 1 puffs INH DAILY [facility] Stop: 05/04/24 08:59 Last Admin: 04/15/24 08:41 Dose: 1 puffs Formoterol Fumarate (Formoterol 20 Mcg/2 Ml Vial) 20 mcg NEB BIDR [facility] Stop: 05/08/24 08:14 Last Admin: 04/15/24 07:09 Dose: 20 mcg Furosemide (Furosemide 20 Mg Tab) 20 mg PO DAILY [facility] Stop: 05/08/24 08:59 Last Admin: 04/15/24 08:41 Dose: 20 mg Glucagon (Glucagon For Inj 1 Mg Vial) 1 mg SQ UD PRN; Protocol PRN Reason: Hypoglycemia Protocol Stop: 05/04/24 03:27 Glucose (Glucose 40% Gel 15 Gm Tube) 15 - 30 gm PO UD PRN; Protocol PRN Reason: Hypoglycemia Protocol Stop: 05/04/24 03:27 Glucose (Glucose 10 Tab/Tube) 4 - 8 tab PO UD PRN; Protocol PRN Reason: Hypoglycemia Protocol Stop: 05/04/24 03:27 Heparin Sodium (Porcine) (Heparin Sod 5,000 Unit/0.5 Ml Vial) 5,000 units SQ Q8 [facility]OD Stop: 05/04/24 05:59 Last Admin: 04/15/24 13:07 Dose: 5,000 units Hydralazine HCl (Hydralazine Hcl 20 Mg/Ml Vial) 5 mg IV Q6H PRN PRN Reason: systolic bp > 160 Stop: 05/06/24 19:16 Last Admin: 04/07/24 21:53 Dose: 5 mg Hydralazine HCl (Hydralazine Tab 50 Mg Tab) 50 mg PO BID [facility] Stop: 05/09/24 20:59 Last Admin: 04/15/24 08:41 Dose: 50 mg Insulin Aspart (Insulin Aspart Per Unit Charge) 0 units SC ACHS [facility] Stop: 05/04/24 07:29 Last Admin: 04/15/24 13:07 Dose: 1 units Levothyroxine Sodium (Levothyroxine Sodium 100 Mcg Tablet) 100 mcg PO DAILYBB [facility] Stop: 05/04/24 06:29 Last Admin: 04/15/24 05:52 Dose: 100 mcg Lorazepam (Lorazepam 0.5 Mg Tab) 0.25 mg PO DAILY PRN PRN Reason: agitation Stop: 05/06/24 19:04 Last Admin: 04/07/24 17:01 Dose: 0.25 mg Lorazepam (Lorazepam 2 Mg/1 Ml Vial) 0.25 mg IV Q12H PRN PRN Reason: agitation Stop: 05/07/24 17:44 Melatonin (Melatonin 3 Mg Tab) 3 mg PO HS PRN PRN Reason: Sleep Stop: 05/07/24 20:50 Last Admin: 04/15/24 02:48 Dose: 3 mg Miconazole Nitrate (Miconazole Nitrate Powder 85 Gm) 1 appln EXT PRN PRN PRN Reason: Affected Skin Folds Stop: 05/05/24 10:45 Miscellaneous (Carbohydrates For Hypoglycemia ) 15 - 30 gm PO UD PRN PRN Reason: Hypoglycemia Protocol Stop: 05/04/24 03:27 Nystatin (Nystatin Cr 15 Gm Tube) 1 appln EXT BID [facility] Stop: 05/04/24 08:59 Last Admin: 04/15/24 08:41 Dose: 1 appln Olanzapine (Olanzapine 10 Mg/2.1 Ml Sdv) 2.5 mg IM Q4H PRN PRN Reason: Agitation Stop: 05/07/24 05:21 Polyethylene Glycol (Polyethylene (Miralax) 17 Gm Pack) 17 gm PO DAILY PRN PRN Reason: Constipation Stop: 05/05/24 13:47
--- NOTE | 2024-04-16 18:54 | Hospitalist Progress Note ---
Date of Service April 16, 2024 Assessment & Plan (1) Acute exacerbation of chronic obstructive pulmonary disease: Plan: Acute exacerbation of chronic obstructive pulmonary disease: per admitting service notes with addendum: 88 yo M w/ type 2 diabetes, CKD stage III, dyslipidemia, hypothyroidism, COPD, paroxysmal atrial fibrillation, iliac artery aneurysm bilateral, hypertension, abdominal aortic aneurysm s/p repair, endovascular stent graft for abdominal aortic aneurysm, asymptomatic bilateral carotid artery stenosis, history of CAD, heart failure with reduced ejection fraction, osteoporosis, beta-blockers contraindicated, who lives at home alone and daughter lives close by was brought in because of frequent falls and found to have COPD exacerbation and coronavirus OC43 positive. Patient was sleeping and was woken up. Can tell his name. Can tell his date of . Knows that he is in the hospital. Knows the month. But could not tell the year. He says he was falling at home and that is the reason was brought to hospital. Says he did not his head. Says he did not lose consciousness. Denies any fevers. Denies chest pain. Denies shortness of breath. Has some cough. No sore throat. No runny nose. No abdominal pain. Somewhat difficult to get history from the patient. Called the daughter. As per daughter patient was falling frequently last couple of days. He seemed very weak. Has been coughing more than usual. And he could not explain properly how he was falling and seemed forgetful and daughter decided to bring him to the hospital. Acute COPD exacerbation -CTA chest okay -from coronavirus OC 43 infection -DuoNebs [id number] and as needed was having mild bilateral scattered wheezing placed on 2 L O2 Chest x-ray: No pneumonia Added Perforomist, Pulmicort Tapered prednisone to 20 mg p.o. daily in light of delirium nebs 4 times daily clinically improved now on room air, cont. guaifenesin, IS, and as above Falls -CT head and CT cervical spine no acute findings -PT OT recommending SNF, awaiting placement Confusion 04/08 Psychiatry service consulted for delirium Discussed with Dr. Mccall EKG obtained, QTc C is less than 500 start Seroquel 25 mg p.o. at bedtime 04/09 Much more calm, no agitation noted today EKG today revealing QT corrected 505 Hold off on Seroquel for now 04/10 QT is 525 Patient is more calm and cooperative today Hold off on Seroquel 04/11 QTc < 500 calm, cooperative: Seroquel not needed any longer Hypertension -On Lasix - Amlodipine 5mg BID started added Hydralazine 25 mg p.o. twice daily 04/11 increased Hydralazine to 50 mg p.o. twice daily 04/12 BP improved Paroxysmal atrial fibrillation -On amiodarone and aspirin -monitor QT corrected CKD stage III Acute Kidney Failure -Presents with creatinine 1.9 -at baseline Chronic heart failure with reduced ejection fraction -EF 50% echo 09/09/2023 - appears euvolemic now -continue home Lasix Elevated troponin -demand ischemia, resolved Bilateral lower extremity edema -no DVT Type 2 diabetes -Not on meds -SSI Hyperlipidemia -On statin History of CAD -On statin and aspirin -Not on beta-alexsandra because of slow resting heart rate and pulmonary disease History of abdominal aortic aneurysm s/p repair DVT prophylaxis heparin Monitor closely d/c to SNF when accepted Admission and Anticipated Discharge Date Admission Date: April 04, 2024 Subjective Pt seen in follow up for COPD exacerbation, etc seen resting in bed in NAD pt is calm and cooperative Denies chest pain, shortness of breath, has some cough encouraged and worked w/ incentive spirometer Review of Systems Review of Systems: All systems reviewed & are unremarkable except as noted in Subjective Physical Exam Physical Exam: General- WD/WN elderly M in NAD, on RA Eyes- anicteric Neck- no JVD Lungs- faint intermittent rhonchi BL Heart- normal rate, regular rhythm; no murmurs Abdomen- normal bowel sounds, nondistended, soft, nontender Extremities- no pretibial edema, no calf tenderness Neuro- awake, alert, able to answer simple questions, no gross focal neurologic deficits Skin- warm & dry Results & Data Results & Data Vital Signs (Past 12 Hours) Vital Signs Temp Pulse Pulse Resp BP Pulse Ox O2 Del Method 04/16/24 17:07 62 04/16/24 16:21 36.3 C L 68 17 134/66 90 Room Air 04/16/24 14:23 64 18 95 Room Air 04/16/24 11:51 Nasal Cannula 04/16/24 11:32 36.6 C 59 L 18 118/60 93 Nasal Cannula 04/16/24 10:33 63 04/16/24 10:08 63 18 89 L Room Air 04/16/24 07:43 68 20 93 Nasal Cannula 04/16/24 07:41 36.7 C 82 17 122/69 93 Nasal Cannula O2 Flow Rate 04/16/24 17:07 04/16/24 16:21 04/16/24 14:23 04/16/24 11:51 2 04/16/24 11:32 2 04/16/24 10:33 04/16/24 10:08 04/16/24 07:43 2 04/16/24 07:41 2 Medications Administered Current Inpatient Medications Acetaminophen (Acetaminophen 325 Mg Tab) 650 mg PO Q4H PRN PRN Reason: Pain or Fever Stop: 05/04/24 03:27 Last Admin: 04/11/24 21:36 Dose: 650 mg Albuterol (Albut/Ipratrop 3mg/0.5mg Neb 3 Ml Vial) 3 ml NEB Q4H PRN; Protocol PRN Reason: Shortness Of Breath Or Wheezing Stop: 05/04/24 03:27 Last Admin: 04/05/24 02:07 Dose: 3 ml Amiodarone HCl (Amiodarone 200 Mg Tab) 200 mg PO DAILY [facility] Stop: 05/04/24 08:59 Last Admin: 04/16/24 08:59 Dose: 200 mg Amlodipine Besylate (Amlodipine Besylate 5 Mg Tab) 5 mg PO BID [facility] Stop: 05/07/24 11:44 Last Admin: 04/16/24 08:59 Dose: 5 mg Aspirin (Aspirin 81 Mg Ectab) 81 mg PO DAILY [facility] Stop: 05/04/24 08:59 Last Admin: 04/06/24 09:10 Dose: 81 mg Atorvastatin Calcium (Atorvastatin 40 Mg Tab) 80 mg PO DAILY [facility] Stop: 05/04/24 08:59 Last Admin: 04/16/24 08:58 Dose: 80 mg Dextrose (Dextrose 50% 50 Ml Syringe) 25 - 50 ml IV UD PRN; Protocol PRN Reason: Hypoglycemia Protocol Stop: 05/04/24 03:27 Fluticasone/Vilanterol (Fluticasone/Vilanterol 200/25mcg 14 Puffs/Inhaler) 1 puffs INH DAILY [facility] Stop: 05/04/24 08:59 Last Admin: 04/16/24 08:59 Dose: 1 puffs Furosemide (Furosemide 20 Mg Tab) 20 mg PO DAILY [facility] Stop: 05/08/24 08:59 Last Admin: 04/16/24 08:59 Dose: 20 mg Glucagon (Glucagon For Inj 1 Mg Vial) 1 mg SQ UD PRN; Protocol PRN Reason: Hypoglycemia Protocol Stop: 05/04/24 03:27 Glucose (Glucose 40% Gel 15 Gm Tube) 15 - 30 gm PO UD PRN; Protocol PRN Reason: Hypoglycemia Protocol Stop: 05/04/24 03:27 Glucose (Glucose 10 Tab/Tube) 4 - 8 tab PO UD PRN; Protocol PRN Reason: Hypoglycemia Protocol Stop: 05/04/24 03:27 Heparin Sodium (Porcine) (Heparin Sod 5,000 Unit/0.5 Ml Vial) 5,000 units SQ Q8 [facility]OD Stop: 05/04/24 05:59 Last Admin: 04/16/24 13:35 Dose: 5,000 units Hydralazine HCl (Hydralazine Hcl 20 Mg/Ml Vial) 5 mg IV Q6H PRN PRN Reason: systolic bp > 160 Stop: 05/06/24 19:16 Last Admin: 04/07/24 21:53 Dose: 5 mg Hydralazine HCl (Hydralazine Tab 50 Mg Tab) 50 mg PO BID [facility] Stop: 05/09/24 20:59 Last Admin: 04/16/24 08:59 Dose: 50 mg Insulin Aspart (Insulin Aspart Per Unit Charge) 0 units SC ACHS [facility] Stop: 05/04/24 07:29 Last Admin: 04/16/24 17:35 Dose: 1 units Levothyroxine Sodium (Levothyroxine Sodium 100 Mcg Tablet) 100 mcg PO DAILYBB [facility] Stop: 05/04/24 06:29 Last Admin: 04/16/24 05:35 Dose: 100 mcg Lorazepam (Lorazepam 0.5 Mg Tab) 0.25 mg PO DAILY PRN PRN Reason: agitation Stop: 05/06/24 19:04 Last Admin: 04/07/24 17:01 Dose: 0.25 mg Lorazepam (Lorazepam 2 Mg/1 Ml Vial) 0.25 mg IV Q12H PRN PRN Reason: agitation Stop: 05/07/24 17:44 Melatonin (Melatonin 3 Mg Tab) 3 mg PO HS PRN PRN Reason: Sleep Stop: 05/07/24 20:50 Last Admin: 04/15/24 02:48 Dose: 3 mg Miconazole Nitrate (Miconazole Nitrate Powder 85 Gm) 1 appln EXT PRN PRN PRN Reason: Affected Skin Folds Stop: 05/05/24 10:45 Miscellaneous (Carbohydrates For Hypoglycemia ) 15 - 30 gm PO UD PRN PRN Reason: Hypoglycemia Protocol Stop: 05/04/24 03:27 Nystatin (Nystatin Cr 15 Gm Tube) 1 appln EXT BID [facility] Stop: 05/04/24 08:59 Last Admin: 04/16/24 09:00 Dose: 1 appln Olanzapine (Olanzapine 10 Mg/2.1 Ml Sdv) 2.5 mg IM Q4H PRN PRN Reason: Agitation Stop: 05/07/24 05:21 Polyethylene Glycol (Polyethylene (Miralax) 17 Gm Pack) 17 gm PO DAILY PRN PRN Reason: Constipation Stop: 05/05/24 13:47
[2024-04-16] MEDS: guaiFENesin 600 MG TABCR PO SCH (21:11)
--- NOTE | 2024-04-17 11:29 | Hospitalist Progress Note ---
Date of Service April 17, 2024 Assessment & Plan (1) Acute exacerbation of chronic obstructive pulmonary disease: Plan: Acute exacerbation of chronic obstructive pulmonary disease: per admitting service notes with addendum: 88 yo M w/ type 2 diabetes, CKD stage III, dyslipidemia, hypothyroidism, COPD, paroxysmal atrial fibrillation, iliac artery aneurysm bilateral, hypertension, abdominal aortic aneurysm s/p repair, endovascular stent graft for abdominal aortic aneurysm, asymptomatic bilateral carotid artery stenosis, history of CAD, heart failure with reduced ejection fraction, osteoporosis, beta-blockers contraindicated, who lives at home alone and daughter lives close by was brought in because of frequent falls and found to have COPD exacerbation and coronavirus OC43 positive. Patient was sleeping and was woken up. Can tell his name. Can tell his date of . Knows that he is in the hospital. Knows the month. But could not tell the year. He says he was falling at home and that is the reason was brought to hospital. Says he did not his head. Says he did not lose consciousness. Denies any fevers. Denies chest pain. Denies shortness of breath. Has some cough. No sore throat. No runny nose. No abdominal pain. Somewhat difficult to get history from the patient. Called the daughter. As per daughter patient was falling frequently last couple of days. He seemed very weak. Has been coughing more than usual. And he could not explain properly how he was falling and seemed forgetful and daughter decided to bring him to the hospital. Acute COPD exacerbation -CTA chest okay -from coronavirus OC 43 infection -DuoNebs [id number] and as needed was having mild bilateral scattered wheezing placed on 2 L O2 Chest x-ray: No pneumonia Added Perforomist, Pulmicort Tapered prednisone to 20 mg p.o. daily in light of delirium nebs 4 times daily clinically improved now on room air, cont. guaifenesin, IS, and as above Falls -CT head and CT cervical spine no acute findings -PT OT recommending SNF, awaiting placement Confusion 04/08 Psychiatry service consulted for delirium Discussed with Dr. Mccall EKG obtained, QTc C is less than 500 start Seroquel 25 mg p.o. at bedtime 04/09 Much more calm, no agitation noted today EKG today revealing QT corrected 505 Hold off on Seroquel for now 04/10 QT is 525 Patient is more calm and cooperative today Hold off on Seroquel 04/11 QTc < 500 calm, cooperative: Seroquel not needed any longer Hypertension -On Lasix - Amlodipine 5mg BID started added Hydralazine 25 mg p.o. twice daily 04/11 increased Hydralazine to 50 mg p.o. twice daily 04/12 BP improved Paroxysmal atrial fibrillation -On amiodarone and aspirin -monitor QT corrected CKD stage III Acute Kidney Failure -Presents with creatinine 1.9 -at baseline Chronic heart failure with reduced ejection fraction -EF 50% echo 09/09/2023 - appears euvolemic now -continue home Lasix Elevated troponin -demand ischemia, resolved Bilateral lower extremity edema -no DVT Type 2 diabetes -Not on meds -SSI Hyperlipidemia -On statin History of CAD -On statin and aspirin -Not on beta-alexsandra because of slow resting heart rate and pulmonary disease History of abdominal aortic aneurysm s/p repair DVT prophylaxis heparin Monitor closely d/c to SNF when accepted Admission and Anticipated Discharge Date Admission Date: April 04, 2024 Subjective Pt seen in follow up for COPD exacerbation, etc seen resting in bed in NAD, pt's daughter present at the bedside pt is calm and cooperative Denies chest pain, shortness of breath, + cough encouraged and worked w/ incentive spirometer Review of Systems Review of Systems: All systems reviewed & are unremarkable except as noted in Subjective Physical Exam Physical Exam: General- WD/WN elderly M in NAD, on RA Eyes- anicteric Neck- no JVD Lungs- faint intermittent rhonchi BL Heart- normal rate, regular rhythm; no murmurs Abdomen- normal bowel sounds, nondistended, soft, nontender Extremities- no pretibial edema, no calf tenderness Neuro- awake, alert, able to answer simple questions, no gross focal neurologic deficits Skin- warm & dry Results & Data Results & Data Vital Signs (Past 12 Hours) Vital Signs Temp Pulse Pulse Resp BP Pulse Ox O2 Del Method 04/17/24 11:05 73 04/17/24 08:13 36.5 C 67 17 142/68 H 90 Room Air 04/17/24 07:49 Room Air 04/17/24 04:44 67 91 Room Air 04/17/24 02:56 36.6 C 69 18 144/64 H 91 Room Air Medications Administered Current Inpatient Medications Acetaminophen (Acetaminophen 325 Mg Tab) 650 mg PO Q4H PRN PRN Reason: Pain or Fever Stop: 05/04/24 03:27 Last Admin: 04/11/24 21:36 Dose: 650 mg Albuterol (Albut/Ipratrop 3mg/0.5mg Neb 3 Ml Vial) 3 ml NEB Q4H PRN; Protocol PRN Reason: Shortness Of Breath Or Wheezing Stop: 05/04/24 03:27 Last Admin: 04/17/24 04:44 Dose: 3 ml Amiodarone HCl (Amiodarone 200 Mg Tab) 200 mg PO DAILY VINOD Stop: 05/04/24 08:59 Last Admin: 04/17/24 08:22 Dose: 200 mg Amlodipine Besylate (Amlodipine Besylate 5 Mg Tab) 5 mg PO BID [facility] Stop: 05/07/24 11:44 Last Admin: 04/17/24 08:22 Dose: 5 mg Aspirin (Aspirin 81 Mg Ectab) 81 mg PO DAILY VINOD Stop: 05/04/24 08:59 Last Admin: 04/06/24 09:10 Dose: 81 mg Atorvastatin Calcium (Atorvastatin 40 Mg Tab) 80 mg PO DAILY VINOD Stop: 05/04/24 08:59 Last Admin: 04/17/24 08:21 Dose: 80 mg Dextrose (Dextrose 50% 50 Ml Syringe) 25 - 50 ml IV UD PRN; Protocol PRN Reason: Hypoglycemia Protocol Stop: 05/04/24 03:27 Fluticasone/Vilanterol (Fluticasone/Vilanterol 200/25mcg 14 Puffs/Inhaler) 1 puffs INH DAILY VINOD Stop: 05/04/24 08:59 Last Admin: 04/17/24 08:20 Dose: 1 puffs Furosemide (Furosemide 20 Mg Tab) 20 mg PO DAILY VINOD Stop: 05/08/24 08:59 Last Admin: 04/17/24 08:22 Dose: 20 mg Glucagon (Glucagon For Inj 1 Mg Vial) 1 mg SQ UD PRN; Protocol PRN Reason: Hypoglycemia Protocol Stop: 05/04/24 03:27 Glucose (Glucose 40% Gel 15 Gm Tube) 15 - 30 gm PO UD PRN; Protocol PRN Reason: Hypoglycemia Protocol Stop: 05/04/24 03:27 Glucose (Glucose 10 Tab/Tube) 4 - 8 tab PO UD PRN; Protocol PRN Reason: Hypoglycemia Protocol Stop: 05/04/24 03:27 Guaifenesin (Guaifenesin 600 Mg Tabcr) 600 mg PO Q12 [facility] Stop: 05/16/24 20:59 Last Admin: 04/17/24 08:21 Dose: 600 mg Heparin Sodium (Porcine) (Heparin Sod 5,000 Unit/0.5 Ml Vial) 5,000 units SQ Q8 [facility]INOD Stop: 05/04/24 05:59 Last Admin: 04/17/24 05:56 Dose: 5,000 units Hydralazine HCl (Hydralazine Hcl 20 Mg/Ml Vial) 5 mg IV Q6H PRN PRN Reason: systolic bp > 160 Stop: 05/06/24 19:16 Last Admin: 04/07/24 21:53 Dose: 5 mg Hydralazine HCl (Hydralazine Tab 50 Mg Tab) 50 mg PO BID [facility] Stop: 05/09/24 20:59 Last Admin: 04/17/24 08:22 Dose: 50 mg Insulin Aspart (Insulin Aspart Per Unit Charge) 0 units SC ACHS [facility] Stop: 05/04/24 07:29 Last Admin: 04/17/24 09:09 Dose: 1 units Levothyroxine Sodium (Levothyroxine Sodium 100 Mcg Tablet) 100 mcg PO DAILYBB [facility] Stop: 05/04/24 06:29 Last Admin: 04/17/24 05:56 Dose: 100 mcg Lorazepam (Lorazepam 0.5 Mg Tab) 0.25 mg PO DAILY PRN PRN Reason: agitation Stop: 05/06/24 19:04 Last Admin: 04/07/24 17:01 Dose: 0.25 mg Lorazepam (Lorazepam 2 Mg/1 Ml Vial) 0.25 mg IV Q12H PRN PRN Reason: agitation Stop: 05/07/24 17:44 Melatonin (Melatonin 3 Mg Tab) 3 mg PO HS PRN PRN Reason: Sleep Stop: 05/07/24 20:50 Last Admin: 04/15/24 02:48 Dose: 3 mg Miconazole Nitrate (Miconazole Nitrate Powder 85 Gm) 1 appln EXT PRN PRN PRN Reason: Affected Skin Folds Stop: 05/05/24 10:45 Miscellaneous (Carbohydrates For Hypoglycemia ) 15 - 30 gm PO UD PRN PRN Reason: Hypoglycemia Protocol Stop: 05/04/24 03:27 Nystatin (Nystatin Cr 15 Gm Tube) 1 appln EXT BID [facility] Stop: 05/04/24 08:59 Last Admin: 04/17/24 08:23 Dose: 1 appln Olanzapine (Olanzapine 10 Mg/2.1 Ml Sdv) 2.5 mg IM Q4H PRN PRN Reason: Agitation Stop: 05/07/24 05:21 Polyethylene Glycol (Polyethylene (Miralax) 17 Gm Pack) 17 gm PO DAILY PRN PRN Reason: Constipation Stop: 05/05/24 13:47
[2024-04-17] MEDS: POLYETHYLENE (MIRALAX) 17 GM PACK PO PRN (14:06)
--- NOTE | 2024-04-18 06:36 | CT Scan Report ---
EXAM: CT head/brain wo con CLINICAL HISTORY: unwitnessed fall TECHNIQUE: Axial non-contrast CT scan of the brain was performed from the skull base to the high parietal region. One of the following dose reduction techniques were utilized for this exam: Automated exposure control, adjustment of the mA and/or kV according to patient size, use of iterative reconstruction. COMPARISON: 04/03/2024 CT. FINDINGS: Brain Parenchyma: Evidence of an abnormal area of low attenuation noted at the periventricular white matter area with bilateral hypodense foci at both norris radiate and centrum semiovale.. Normal attenuation of the cerebellum, and brainstem. No evidence of acute infarct, hemorrhage, or mass effect. [id number] Prominent cortical sulci /[id number] both Sylvian fissures. /OBX.5.1.2/OBX.5.1 Ventricular System: Ventricles are dilated in size and normal configuration. Subarachnoid Spaces: Normal sulci and cisterns. No evidence of subarachnoid hemorrhage or extra-axial fluid collections. Cerebellum and Brainstem: Normal size and signal. No masses, lesions, or areas of abnormal signal. Orbits: Normal appearance of the globes, optic nerves, and extraocular muscles. No evidence of orbital masses or abnormal signal. Sinuses: Clear paranasal sinuses. No evidence of sinusitis or mucosal thickening. Mastoid Air Cells: Clear mastoid air cells. No evidence of mastoiditis. Skull: Normal skull morphology. IMPRESSION: 1. No acute cerebral hematoma or skull fractures. 2. Periventricular white matter ischemia and chronic small vessels disease. 3. No time interval changes compared to the last study. Electronically signed by Riddhi Gifford 04-18-2024 06:35 AM
--- NOTE | 2024-04-18 12:59 | Hospitalist Progress Note ---
Date of Service April 18, 2024 Assessment & Plan (1) Acute exacerbation of chronic obstructive pulmonary disease: Plan: Acute exacerbation of chronic obstructive pulmonary disease: per admitting service notes with addendum: 88 yo M w/ type 2 diabetes, CKD stage III, dyslipidemia, hypothyroidism, COPD, paroxysmal atrial fibrillation, iliac artery aneurysm bilateral, hypertension, abdominal aortic aneurysm s/p repair, endovascular stent graft for abdominal aortic aneurysm, asymptomatic bilateral carotid artery stenosis, history of CAD, heart failure with reduced ejection fraction, osteoporosis, beta-blockers contraindicated, who lives at home alone and daughter lives close by was brought in because of frequent falls and found to have COPD exacerbation and coronavirus OC43 positive. Patient was sleeping and was woken up. Can tell his name. Can tell his date of . Knows that he is in the hospital. Knows the month. But could not tell the year. He says he was falling at home and that is the reason was brought to hospital. Says he did not his head. Says he did not lose consciousness. Denies any fevers. Denies chest pain. Denies shortness of breath. Has some cough. No sore throat. No runny nose. No abdominal pain. Somewhat difficult to get history from the patient. Called the daughter. As per daughter patient was falling frequently last couple of days. He seemed very weak. Has been coughing more than usual. And he could not explain properly how he was falling and seemed forgetful and daughter decided to bring him to the hospital. Acute COPD exacerbation -CTA chest okay -from coronavirus OC 43 infection -DuoNebs [id number] and as needed was having mild bilateral scattered wheezing placed on 2 L O2 Chest x-ray: No pneumonia Added Perforomist, Pulmicort Tapered prednisone to 20 mg p.o. daily in light of delirium, prednisone course finished nebs 4 times daily clinically improved now on room air, cont. guaifenesin, IS, and as above Falls -CT head and CT cervical spine no acute findings -PT OT recommending SNF, awaiting placement - had fall overnight here in the hospital, CT head negat. Confusion 04/08 Psychiatry service consulted for delirium Discussed with Dr. Mccall EKG obtained, QTc C is less than 500 start Seroquel 25 mg p.o. at bedtime 04/09 Much more calm, no agitation noted today EKG today revealing QT corrected 505 Hold off on Seroquel for now 04/10 QT is 525 Patient is more calm and cooperative today Hold off on Seroquel 04/11 QTc < 500 calm, cooperative: Seroquel not needed any longer Hypertension -On Lasix - Amlodipine 5mg BID started added Hydralazine 25 mg p.o. twice daily 04/11 increased Hydralazine to 50 mg p.o. twice daily 04/12 BP improved Paroxysmal atrial fibrillation -On amiodarone and aspirin -monitor QT corrected CKD stage III Acute Kidney Failure -Presents with creatinine 1.9 -at baseline Chronic heart failure with reduced ejection fraction -EF 50% echo 09/09/2023 - appears euvolemic now -continue home Lasix Elevated troponin -demand ischemia, resolved Bilateral lower extremity edema -no DVT Type 2 diabetes -Not on meds -SSI Hyperlipidemia -On statin History of CAD -On statin and aspirin -Not on beta-alexsandra because of slow resting heart rate and pulmonary disease History of abdominal aortic aneurysm s/p repair DVT prophylaxis heparin Monitor closely d/c to SNF when accepted Admission and Anticipated Discharge Date Admission Date: April 04, 2024 Subjective Pt seen in follow up for COPD exacerbation, etc seen resting in bed in NAD pt is calm and cooperative Denies chest pain, shortness of breath, + occasional cough Overnight pt had a fall, CT head negat. Pt reports feeling well, RN at the bedside and discussed with Review of Systems Review of Systems: All systems reviewed & are unremarkable except as noted in Subjective Physical Exam Physical Exam: General- WD/WN elderly M in NAD, on RA Eyes- anicteric Neck- no JVD Lungs- faint intermittent rhonchi BL Heart- normal rate, regular rhythm; no murmurs Abdomen- normal bowel sounds, nondistended, soft, nontender Extremities- no pretibial edema, no calf tenderness Neuro- awake, alert, able to answer simple questions, no gross focal neurologic deficits Skin- warm & dry Results & Data Results & Data Vital Signs (Past 12 Hours) Vital Signs Temp Pulse Pulse Resp BP Pulse Ox O2 Del Method 04/18/24 10:56 36.5 C 64 16 105/52 L 93 Room Air 04/18/24 08:55 Room Air 04/18/24 07:31 66 04/18/24 07:28 36.5 C 62 16 128/62 95 Room Air 04/18/24 05:24 36.6 C 68 20 126/70 Room Air 04/18/24 03:03 36.6 C 68 18 125/66 92 Room Air Medications Administered Current Inpatient Medications Acetaminophen (Acetaminophen 325 Mg Tab) 650 mg PO Q4H PRN PRN Reason: Pain or Fever Stop: 05/04/24 03:27 Last Admin: 04/11/24 21:36 Dose: 650 mg Albuterol (Albut/Ipratrop 3mg/0.5mg Neb 3 Ml Vial) 3 ml NEB Q4H PRN; Protocol PRN Reason: Shortness Of Breath Or Wheezing Stop: 05/04/24 03:27 Last Admin: 04/17/24 04:44 Dose: 3 ml Amiodarone HCl (Amiodarone 200 Mg Tab) 200 mg PO DAILY VINOD Stop: 05/04/24 08:59 Last Admin: 04/18/24 08:46 Dose: 200 mg Amlodipine Besylate (Amlodipine Besylate 5 Mg Tab) 5 mg PO BID [facility] Stop: 05/07/24 11:44 Last Admin: 04/18/24 08:46 Dose: 5 mg Aspirin (Aspirin 81 Mg Ectab) 81 mg PO DAILY VINOD Stop: 05/04/24 08:59 Last Admin: 04/06/24 09:10 Dose: 81 mg Atorvastatin Calcium (Atorvastatin 40 Mg Tab) 80 mg PO DAILY VINOD Stop: 05/04/24 08:59 Last Admin: 04/18/24 08:46 Dose: 80 mg Dextrose (Dextrose 50% 50 Ml Syringe) 25 - 50 ml IV UD PRN; Protocol PRN Reason: Hypoglycemia Protocol Stop: 05/04/24 03:27 Fluticasone/Vilanterol (Fluticasone/Vilanterol 200/25mcg 14 Puffs/Inhaler) 1 puffs INH DAILY VINOD Stop: 05/04/24 08:59 Last Admin: 04/18/24 08:45 Dose: 1 puffs Furosemide (Furosemide 20 Mg Tab) 20 mg PO DAILY VINOD Stop: 05/08/24 08:59 Last Admin: 04/18/24 08:46 Dose: 20 mg Glucagon (Glucagon For Inj 1 Mg Vial) 1 mg SQ UD PRN; Protocol PRN Reason: Hypoglycemia Protocol Stop: 05/04/24 03:27 Glucose (Glucose 40% Gel 15 Gm Tube) 15 - 30 gm PO UD PRN; Protocol PRN Reason: Hypoglycemia Protocol Stop: 05/04/24 03:27 Glucose (Glucose 10 Tab/Tube) 4 - 8 tab PO UD PRN; Protocol PRN Reason: Hypoglycemia Protocol Stop: 05/04/24 03:27 Guaifenesin (Guaifenesin 600 Mg Tabcr) 600 mg PO Q12 [facility] Stop: 05/16/24 20:59 Last Admin: 04/18/24 08:46 Dose: 600 mg Heparin Sodium (Porcine) (Heparin Sod 5,000 Unit/0.5 Ml Vial) 5,000 units SQ Q8 [facility] Stop: 05/04/24 05:59 Last Admin: 04/18/24 05:49 Dose: Not Given Hydralazine HCl (Hydralazine Hcl 20 Mg/Ml Vial) 5 mg IV Q6H PRN PRN Reason: systolic bp > 160 Stop: 05/06/24 19:16 Last Admin: 04/07/24 21:53 Dose: 5 mg Hydralazine HCl (Hydralazine Tab 50 Mg Tab) 50 mg PO BID [facility] Stop: 05/09/24 20:59 Last Admin: 04/18/24 08:46 Dose: 50 mg Insulin Aspart (Insulin Aspart Per Unit Charge) 0 units SC ACHS [facility] Stop: 05/04/24 07:29 Last Admin: 04/18/24 12:13 Dose: 1 units Levothyroxine Sodium (Levothyroxine Sodium 100 Mcg Tablet) 100 mcg PO DAILYBB [facility] Stop: 05/04/24 06:29 Last Admin: 04/18/24 05:49 Dose: 100 mcg Lorazepam (Lorazepam 0.5 Mg Tab) 0.25 mg PO DAILY PRN PRN Reason: agitation Stop: 05/06/24 19:04 Last Admin: 04/07/24 17:01 Dose: 0.25 mg Lorazepam (Lorazepam 2 Mg/1 Ml Vial) 0.25 mg IV Q12H PRN PRN Reason: agitation Stop: 05/07/24 17:44 Melatonin (Melatonin 3 Mg Tab) 3 mg PO HS PRN PRN Reason: Sleep Stop: 05/07/24 20:50 Last Admin: 04/17/24 23:25 Dose: 3 mg Miconazole Nitrate (Miconazole Nitrate Powder 85 Gm) 1 appln EXT PRN PRN PRN Reason: Affected Skin Folds Stop: 05/05/24 10:45 Miscellaneous (Carbohydrates For Hypoglycemia ) 15 - 30 gm PO UD PRN PRN Reason: Hypoglycemia Protocol Stop: 05/04/24 03:27 Nystatin (Nystatin Cr 15 Gm Tube) 1 appln EXT BID [facility] Stop: 05/04/24 08:59 Last Admin: 04/18/24 08:49 Dose: 1 appln Olanzapine (Olanzapine 10 Mg/2.1 Ml Sdv) 2.5 mg IM Q4H PRN PRN Reason: Agitation Stop: 05/07/24 05:21 Polyethylene Glycol (Polyethylene (Miralax) 17 Gm Pack) 17 gm PO DAILY PRN PRN Reason: Constipation Stop: 05/05/24 13:47 Last Admin: 04/17/24 14:06 Dose: 17 gm
[2024-04-18] MEDS: hydrALAZINE HCL 25 MG TAB PO SCH (20:31)
--- NOTE | 2024-04-19 16:20 | Hospitalist Progress Note ---
Date of Service April 19, 2024 Assessment & Plan (1) Acute exacerbation of chronic obstructive pulmonary disease: Plan: Acute exacerbation of chronic obstructive pulmonary disease: per admitting service notes with addendum: 88 yo M w/ type 2 diabetes, CKD stage III, dyslipidemia, hypothyroidism, COPD, paroxysmal atrial fibrillation, iliac artery aneurysm bilateral, hypertension, abdominal aortic aneurysm s/p repair, endovascular stent graft for abdominal aortic aneurysm, asymptomatic bilateral carotid artery stenosis, history of CAD, heart failure with reduced ejection fraction, osteoporosis, beta-blockers contraindicated, who lives at home alone and daughter lives close by was brought in because of frequent falls and found to have COPD exacerbation and coronavirus OC43 positive. Patient was sleeping and was woken up. Can tell his name. Can tell his date of . Knows that he is in the hospital. Knows the month. But could not tell the year. He says he was falling at home and that is the reason was brought to hospital. Says he did not his head. Says he did not lose consciousness. Denies any fevers. Denies chest pain. Denies shortness of breath. Has some cough. No sore throat. No runny nose. No abdominal pain. Somewhat difficult to get history from the patient. Called the daughter. As per daughter patient was falling frequently last couple of days. He seemed very weak. Has been coughing more than usual. And he could not explain properly how he was falling and seemed forgetful and daughter decided to bring him to the hospital. Acute COPD exacerbation -CTA chest okay -from coronavirus OC 43 infection -DuoNebs [id number] and as needed was having mild bilateral scattered wheezing placed on 2 L O2 Chest x-ray: No pneumonia Added Perforomist, Pulmicort Tapered prednisone to 20 mg p.o. daily in light of delirium, prednisone course finished nebs 4 times daily clinically improved now on room air, cont. guaifenesin, IS, and as above Falls -CT head and CT cervical spine no acute findings -PT OT recommending SNF, awaiting placement - had fall overnight here in the hospital, CT head negat. Confusion 04/08 Psychiatry service consulted for delirium Discussed with Dr. Mccall EKG obtained, QTc C is less than 500 start Seroquel 25 mg p.o. at bedtime 04/09 Much more calm, no agitation noted today EKG today revealing QT corrected 505 Hold off on Seroquel for now 04/10 QT is 525 Patient is more calm and cooperative today Hold off on Seroquel 04/11 QTc < 500 calm, cooperative: Seroquel not needed any longer Hypertension -On Lasix - Amlodipine 5mg BID started added Hydralazine 25 mg p.o. twice daily BP improved, cont. to monitor Paroxysmal atrial fibrillation -On amiodarone and aspirin -monitor QT corrected CKD stage III Acute Kidney Failure -Presents with creatinine 1.9 -at baseline Chronic heart failure with reduced ejection fraction -EF 50% echo 09/09/2023 - appears euvolemic now -continue home Lasix Elevated troponin -demand ischemia, resolved Bilateral lower extremity edema -no DVT Type 2 diabetes -Not on meds -SSI Hyperlipidemia -On statin History of CAD -On statin and aspirin -Not on beta-alexsandra because of slow resting heart rate and pulmonary disease History of abdominal aortic aneurysm s/p repair DVT prophylaxis heparin Monitor closely d/c to SNF when accepted Admission and Anticipated Discharge Date Admission Date: April 04, 2024 Subjective Pt seen in follow up for COPD exacerbation, etc seen sitting up in chair in NAD, awake and alert pt is calm and cooperative Denies chest pain, shortness of breath, + occasional cough Review of Systems Review of Systems: All systems reviewed & are unremarkable except as noted in Subjective Physical Exam Physical Exam: General- WD/WN elderly M in NAD, on RA Eyes- anicteric Neck- no JVD Lungs- faint intermittent rhonchi BL Heart- normal rate, regular rhythm; no murmurs Abdomen- normal bowel sounds, nondistended, soft, nontender Extremities- no pretibial edema, no calf tenderness Neuro- awake, alert, able to answer simple questions, no gross focal neurologic deficits Skin- warm & dry Results & Data Results & Data Vital Signs (Past 12 Hours) Vital Signs Temp Pulse Pulse Resp BP Pulse Ox O2 Del Method 04/19/24 16:03 36.4 C L 56 L 16 116/59 L 94 Room Air 04/19/24 11:15 36.6 C 59 L 16 133/66 94 Room Air 04/19/24 08:30 Room Air 04/19/24 07:16 36.6 C 56 L 18 119/51 L 93 Room Air 04/19/24 07:00 55 L Medications Administered Current Inpatient Medications Acetaminophen (Acetaminophen 325 Mg Tab) 650 mg PO Q4H PRN PRN Reason: Pain or Fever Stop: 05/04/24 03:27 Last Admin: 04/19/24 03:39 Dose: 650 mg Albuterol (Albut/Ipratrop 3mg/0.5mg Neb 3 Ml Vial) 3 ml NEB Q4H PRN; Protocol PRN Reason: Shortness Of Breath Or Wheezing Stop: 05/04/24 03:27 Last Admin: 04/17/24 04:44 Dose: 3 ml Amiodarone HCl (Amiodarone 200 Mg Tab) 200 mg PO DAILY VINOD Stop: 05/04/24 08:59 Last Admin: 04/19/24 08:35 Dose: 200 mg Amlodipine Besylate (Amlodipine Besylate 5 Mg Tab) 5 mg PO BID [facility] Stop: 05/07/24 11:44 Last Admin: 04/19/24 08:34 Dose: 5 mg Aspirin (Aspirin 81 Mg Ectab) 81 mg PO DAILY VINOD Stop: 05/04/24 08:59 Last Admin: 04/06/24 09:10 Dose: 81 mg Atorvastatin Calcium (Atorvastatin 40 Mg Tab) 80 mg PO DAILY VINOD Stop: 05/04/24 08:59 Last Admin: 04/19/24 08:35 Dose: 80 mg Dextrose (Dextrose 50% 50 Ml Syringe) 25 - 50 ml IV UD PRN; Protocol PRN Reason: Hypoglycemia Protocol Stop: 05/04/24 03:27 Fluticasone/Vilanterol (Fluticasone/Vilanterol 200/25mcg 14 Puffs/Inhaler) 1 puffs INH DAILY VINOD Stop: 05/04/24 08:59 Last Admin: 04/19/24 08:35 Dose: 1 puffs Furosemide (Furosemide 20 Mg Tab) 20 mg PO DAILY VINOD Stop: 05/08/24 08:59 Last Admin: 04/19/24 08:35 Dose: 20 mg Glucagon (Glucagon For Inj 1 Mg Vial) 1 mg SQ UD PRN; Protocol PRN Reason: Hypoglycemia Protocol Stop: 05/04/24 03:27 Glucose (Glucose 40% Gel 15 Gm Tube) 15 - 30 gm PO UD PRN; Protocol PRN Reason: Hypoglycemia Protocol Stop: 05/04/24 03:27 Glucose (Glucose 10 Tab/Tube) 4 - 8 tab PO UD PRN; Protocol PRN Reason: Hypoglycemia Protocol Stop: 05/04/24 03:27 Guaifenesin (Guaifenesin 600 Mg Tabcr) 600 mg PO Q12 [facility] Stop: 05/16/24 20:59 Last Admin: 04/19/24 08:34 Dose: 600 mg Heparin Sodium (Porcine) (Heparin Sod 5,000 Unit/0.5 Ml Vial) 5,000 units SQ Q8 [facility] Stop: 05/04/24 05:59 Last Admin: 04/19/24 12:37 Dose: 5,000 units Hydralazine HCl (Hydralazine Hcl 20 Mg/Ml Vial) 5 mg IV Q6H PRN PRN Reason: systolic bp > 160 Stop: 05/06/24 19:16 Last Admin: 04/07/24 21:53 Dose: 5 mg Hydralazine HCl (Hydralazine Hcl 25 Mg Tab) 25 mg PO BID [facility] Stop: 05/18/24 20:59 Last Admin: 04/19/24 08:36 Dose: 25 mg Insulin Aspart (Insulin Aspart Per Unit Charge) 0 units SC ACHS [facility] Stop: 05/04/24 07:29 Last Admin: 04/19/24 12:37 Dose: 1 units Levothyroxine Sodium (Levothyroxine Sodium 100 Mcg Tablet) 100 mcg PO DAILYBB [facility] Stop: 05/04/24 06:29 Last Admin: 04/19/24 05:38 Dose: 100 mcg Lorazepam (Lorazepam 0.5 Mg Tab) 0.25 mg PO DAILY PRN PRN Reason: agitation Stop: 05/06/24 19:04 Last Admin: 04/07/24 17:01 Dose: 0.25 mg Lorazepam (Lorazepam 2 Mg/1 Ml Vial) 0.25 mg IV Q12H PRN PRN Reason: agitation Stop: 05/07/24 17:44 Melatonin (Melatonin 3 Mg Tab) 3 mg PO HS PRN PRN Reason: Sleep Stop: 05/07/24 20:50 Last Admin: 04/18/24 20:26 Dose: 3 mg Miconazole Nitrate (Miconazole Nitrate Powder 85 Gm) 1 appln EXT PRN PRN PRN Reason: Affected Skin Folds Stop: 05/05/24 10:45 Miscellaneous (Carbohydrates For Hypoglycemia ) 15 - 30 gm PO UD PRN PRN Reason: Hypoglycemia Protocol Stop: 05/04/24 03:27 Nystatin (Nystatin Cr 15 Gm Tube) 1 appln EXT BID VINOD Stop: 05/04/24 08:59 Last Admin: 04/19/24 08:35 Dose: 1 appln Olanzapine (Olanzapine 10 Mg/2.1 Ml Sdv) 2.5 mg IM Q4H PRN PRN Reason: Agitation Stop: 05/07/24 05:21 Polyethylene Glycol (Polyethylene (Miralax) 17 Gm Pack) 17 gm PO DAILY PRN PRN Reason: Constipation Stop: 05/05/24 13:47 Last Admin: 04/17/24 14:06 Dose: 17 gm
--- NOTE | 2024-04-20 14:39 | Hospitalist Progress Note ---
Date of Service April 20, 2024 Assessment & Plan (1) Acute exacerbation of chronic obstructive pulmonary disease: Plan Pt is an 88 yo M w/ type 2 diabetes, CKD stage III, dyslipidemia, hypothyroidism, COPD, paroxysmal atrial fibrillation, iliac artery aneurysm bilateral, hypertension, abdominal aortic aneurysm s/p repair, endovascular stent graft for abdominal aortic aneurysm, asymptomatic bilateral carotid artery stenosis, history of CAD, heart failure with reduced ejection fraction, osteoporosis, beta-blockers contraindicated who was brought in because of frequent falls and found to be coronavirus OC43 positive with a COPD exacerbation. Acute COPD exacerbation Non-covid coronavirus Infection Frequent falls at home Respiratory panel on admission noting coronavirus infection, non covid CTA chest unremarkable for acute changes DuoNebs [id number] and as needed Oxygen supplementation as needed Completed prednisone course Supportive care Resolved at this time Falls CT head and CT cervical spine no acute findings PT OT recommending SNF, awaiting placement had fall overnight here in the hospital, CT head negative Acute metabolic and Toxic Encpehalopathy Psychiatry service consulted for delirium Previous provider discussed with Dr. Mccall EKG obtained, QTc is less than 500 started on Seroquel 25 mg p.o. at bedtime , currently discontinued PRN zyprexa Delirium precautions. Frequent reorientation, avoid sedating medications as able Hypertension On Lasix Amlodipine 5mg BID started added Hydralazine 25 mg p.o. twice daily BP improved, cont. to monitor Paroxysmal atrial fibrillation On amiodarone and aspirin monitor QTC CKD stage III Acute Kidney Failure -Presented with creatinine 1.9 -at baseline Chronic heart failure with reduced ejection fraction Echo with EF 50% echo 09/09/2023 appears euvolemic now continue home Lasix Elevated troponin demand ischemia, resolved Bilateral lower extremity edema no DVT Type 2 diabetes -Not on meds -SSI Hyperlipidemia -On statin History of CAD -On statin and aspirin -Not on beta-alexsandra because of slow resting heart rate and pulmonary disease History of abdominal aortic aneurysm s/p repair Diet: DMII, regular DVT prophylaxis: heparin SQ Dispo: d/c to SNF when accepted Admission and Anticipated Discharge Date Admission Date: April 04, 2024 Subjective Pt was seen laying in bed He denied acute concerns Per CM, peer to peer required Daughter calling in, noting she would like peer to peer completed as soon as possible Review of Systems Review of Systems: All systems reviewed & are unremarkable except as noted in Subjective Physical Exam Physical Exam: General: Alert, orientedx2. No acute distress Psych: Appropriate mood and affect Neuro: No gross deficits while laying in bed HEENT: NC/AT CV: RRR Resp: Breath sounds clear bilaterally, no increased effort of breathing Abdomen: Soft, nontender Extremities:edema in lower extremities bilaterally. Results & Data Results & Data Vital Signs (Past 12 Hours) Vital Signs Temp Pulse Pulse Pulse Resp BP Pulse Ox 04/20/24 13:55 58 L 04/20/24 11:47 36.6 C 54 L 15 108/70 93 04/20/24 09:35 04/20/24 07:30 36.4 C L 58 L 12 136/64 94 04/20/24 07:00 56 L 04/20/24 04:36 36.4 C L 52 L 18 132/65 92 O2 Del Method 04/20/24 13:55 04/20/24 11:47 Room Air 04/20/24 09:35 Room Air 04/20/24 07:30 Room Air 04/20/24 07:00 04/20/24 04:36 Room Air Diagnostic Findings Cervical Spine CT 04/03/24 21:56 Exam(s): CT C SPINE EXAM: CT Cervical Spine Without Intravenous Contrast CLINICAL HISTORY: Reason for exam: fall. TECHNIQUE: Axial computed tomography images of the cervical spine without intravenous contrast. CTDI is 23.72 mGy and DLP is 507.36 mGy-cm. Automated exposure control was utilized for the study. A dose lowering technique was utilized adhering to the principles of ALARA. COMPARISON: No relevant prior studies available. FINDINGS: Vertebrae: Mild narrowing and osteophytosis of the atlantodental joint. The odontoid process is intact. No acute fracture. Soft tissues: Severe calcification of the left carotid bifurcation. Scarring in the right lung apex. . DISCS/SPINAL CANAL/NEURAL FORAMINA: C2-C3: Mild degenerative disc disease. No stenosis. C3-C4: Mild degenerative disc disease. No stenosis. C4-C5: Moderate degenerative disc disease. No stenosis. C5-C6: Moderate degenerative disc disease. No stenosis. C6-C7: Moderate degenerative disc disease. No stenosis. C7-T1: Mild degenerative disc disease. No stenosis. 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 No acute fracture or subluxation is seen. Electronically signed by: Tariq Bryan MD 04/03/24 23:25 PM Chest X-Ray 04/03/24 21:56 Exam(s): XR CXR 1 VIEW EXAM: XR Chest, 1 View CLINICAL HISTORY: Reason for exam: weakness. TECHNIQUE: Frontal view of the chest. COMPARISON: January 17, 2007 FINDINGS: Lungs: Scarring in the right lung apex, similar to previous. There are surgical clips in the right hilar region with volume loss consistent with previous partial right pneumonectomy, similar to previous. No new infiltrate identified. Pleural space: Unremarkable. No pneumothorax. Heart: Mild cardiomegaly. Mediastinum: Unremarkable. Normal mediastinal contour. Bones/joints: Mild degenerative changes in the spine. No acute fracture. Vasculature: The aortic arch is calcified and tortuous, increased since previous. Upper abdomen: Unremarkable as visualized. No pneumoperitoneum is seen under the diaphragm. IMPRESSION: 1. Mild cardiomegaly. 2. The aortic arch is calcified and tortuous, increased since previous. 3. Scarring in the right lung apex, similar to previous. There are surgical clips in the right hilar region with volume loss consistent with previous partial right pneumonectomy, similar to previous. No new infiltrate identified. Electronically signed by: Tariq Bryan MD 04/03/24 23:[address] 04/03/24 21:56 Exam(s): CT HEAD Without Contrast EXAM: CT Head Without Intravenous Contrast CLINICAL HISTORY: Reason for exam: fall. TECHNIQUE: Axial computed tomography images of the head/brain without intravenous contrast. CTDI is 37.61 mGy and DLP is 546.36 mGy-cm. Automated exposure control was utilized for the study. A dose lowering technique was utilized adhering to the principles of ALARA. COMPARISON: December 17, 2022 FINDINGS: Brain: Mild cerebral atrophy and periventricular white matter low density consistent with chronic small vessel disease and/or senescent changes, similar to previous. No acute large vessel infarct or intracranial hemorrhage is seen. Ventricles: Mildly prominent. No mass or hemorrhage. Bones/joints: Unremarkable. No acute fracture. Soft tissues: Unremarkable. Sinuses: Unremarkable as visualized. No acute sinusitis. Mastoid air cells: Unremarkable as visualized. No mastoid effusion. IMPRESSION: Mild cerebral atrophy and periventricular white matter low density consistent with chronic small vessel disease and/or senescent changes, similar to previous. No acute large vessel infarct or intracranial hemorrhage is seen. Electronically signed by: Tariq Bryan MD 04/03/24 23:24 PM Chest CTA 04/03/24 23:17 EXAM: CT angio chest dissec wo/w con CLINICAL HISTORY: Dissection TECHNIQUE: Contiguous 3.[address] angiographic images of the chest were acquired with the administration of intravenous contrast. Coronal and sagittal reconstructions were obtained. One of these 3D techniques was utilized: Maximum Intensity Pixel (MIP), 3D Reconstructed Images, Volume Rendered Images, Surface Shaded Rendering. One of the following dose reduction techniques were utilized for this exam: Automated exposure control, adjustment of the mA and/or kV according to patient size, and use of iterative reconstruction. COMPARISON: 12/17/2022 FINDINGS: Pulmonary Arteries: Pulmonary arteries are normal in size and opacification. No evidence of pulmonary embolism. No stenosis or filling defects. Aorta: The thoracic aorta shows atherosclerotic changes. No evidence of dissection. Ascending aorta measures 36 mm, normal in caliber. Mild aneurysmal dilatation of arch of aorta, measuring 33 mm and descending thoracic aorta, measuring 32 x 28 mm in maximum caliber . Tortuous descending thoracic aorta. Mediastinum: Few sub centimetric calcified mediastinal and right hilar nodes. Heart: Normal size and morphology of the heart. No pericardial effusion. Lungs: Centrilobular emphysematous changes in both lungs Right apical fibrosis noted with multifocal areas of subpleural fibrosis in both lungs with thin parenchymal fibrotic strands. Sequelae to prior infection likely. Minimal subpleural atelectatic changes in basal segments. No pleural effusion or thickening. Bones: Degenerative changes in thoracic spine. Age-indeterminate superior endplate fracture of T12 vertebral body with central depression and lucent line along the posterior superior aspect on right side, the possibility of acute fracture cannot be excluded. Recommended clinical correlation with point tenderness Anterior wedging of T6-T8 vertebral body with superior endplate collapse, likely old osteoporotic changes. Soft Tissues: Normal appearance of the visualized soft tissues. No abnormal masses or fluid collections. Upper Abdomen: Pancreatic fatty replacement with bilateral perinephric fat stranding. IMPRESSION: 1. No evidence of aortic dissection at present. 2. Age-indeterminate superior endplate fracture of T12 vertebral body with central depression and lucent line along the posterior superior aspect on right side, the possibility of acute fracture cannot be excluded. Recommended clinical correlation with point tenderness and MRI if warranted. New interval findings. 3. Mild aneurysmal dilatation of arch of aorta, measuring 33 mm and descending thoracic aorta, measuring 32 x 28 mm in maximum caliber. Interval stable. 4. Anterior wedging of T6-T8 vertebral body with superior endplate collapse, likely old osteoporotic changes. Interval progression. 5. COPD. Interval stable. 6. Sequelae to prior infection in both lungs as described. Near interval stable. Electronically signed by Riddhi Gifford 04-04-2024 01:02 AM Venous Doppler Study 04/04/24 03:28 EXAM: US venous doppler [facility] CLINICAL HISTORY: b/l lower ext edema. dvt TECHNIQUE: Ultrasound examination of bilateral lower extremity veins was performed in real time and duplex. One or more of the following were performed- spectral analysis, resistive index, waveform analysis, and pulsed Doppler. COMPARISON: None. FINDINGS: Normal phasic, non-pulsatile and spontaneous flow is noted in bilateral common femoral, superficial femoral, popliteal, anterior tibial, posterior tibial and peroneal veins. Visualized veins of both lower extremities demonstrate normal compressibility. No sonographic evidence of acute deep vein thrombosis (DVT) is detected in the visualized veins of both lower extremities. Compression and Augmentation: All evaluated veins compress fully with applied transducer pressure. Augmentation of venous flow is noted with distal compression. Additional Findings: No evidence of intraluminal thrombus. A plaque is noted within the right common femoral artery. A cystic area seen in the left groin measuring 3.2 x 3.1 x 3.2 cm. IMPRESSION: 1. No sonographic evidence of acute DVT detected in bilateral lower extremity veins, at the time of examination. 2. A plaque is noted within the right common femoral artery. 3. A cystic area seen in the left groin measuring 3.2 x 3.1 x 3.2 cm, in view of patient history could be postoperative seroma/collection. Disclaimer: DVT could be missed early in the disease when clot burden is minimal. For patients with moderate and high pretest probability of DVT and negative ultrasound, the [employer] clinical guidelines recommend testing with a D-dimer assay or repeat ultrasound in 5-7 days. If symptoms worsen, the Society of radiologists in ultrasound recommends repeating ultrasound even earlier. Electronically signed by Riddhi Giffodr 04-04-2024 05:04 AM Chest X-Ray 04/07/24 03:59 EXAM: XR chest 1V portable CLINICAL HISTORY: wheeze TECHNIQUE: An X-ray image of the chest is obtained in AP projection. COMPARISON: CT angio 04/03/2024. FINDINGS: Pulmonary Parenchyma: Lungs show prominent perihilar bronchovascular markings. No evidence of consolidation, collapse, or focal opacities. No pulmonary nodules are identified. No evidence of pleural effusion or pleural thickening. Heart and Mediastinum: Prominent aortic arch. Heart size and shape are normal. No mediastinal widening or masses. No hilar or mediastinal lymphadenopathy. Bony Thorax: Bony thorax appears intact without fractures or deformities. Soft Tissues: Soft tissues overlying the chest wall are unremarkable. IMPRESSION: 1. Lungs show prominent bronchovascular markings, and a specific finding clinical correlation and further assessment are advised.Prominent aortic arch, suggesting mild dilatation as noted with previous CT. Electronically signed by Riddhi Gifford 04-07-2024 06:20 AM Chest X-Ray 04/08/24 08:09 XR chest 1V portable CLINICAL HISTORY: wheezing, copd exacerbation COMPARISON STUDY: 04/07/2024 FINDINGS: Single view portable chest demonstrates no significant interval change and no acute cardiopulmonary process. There is no airspace opacity or pleural effusion. Chronic prominence of the basilar lung markings is unchanged. Old right rib deformity noted. Fibrotic thickening in the right pulmonary apex is redemonstrated. Postsurgical changes are noted in the right hilum. The heart size is within normal limits with left ventricular prominence. The thoracic aorta is contains calcified plaque and is ectatic. IMPRESSION: No acute process identified. ACT 112: Negative or not required by law. Electronically signed by: Olena Núñez M.D. 04/08/2024 11:[address] 04/18/24 05:27 EXAM: CT head/brain wo con CLINICAL HISTORY: unwitnessed fall TECHNIQUE: Axial non-contrast CT scan of the brain was performed from the skull base to the high parietal region. One of the following dose reduction techniques were utilized for this exam: Automated exposure control, adjustment of the mA and/or kV according to patient size, use of iterative reconstruction. COMPARISON: 04/03/2024 CT. FINDINGS: Brain Parenchyma: Evidence of an abnormal area of low attenuation noted at the periventricular white matter area with bilateral hypodense foci at both norris radiate and centrum semiovale.. Normal attenuation of the cerebellum, and brainstem. No evidence of acute infarct, hemorrhage, or mass effect. [id number] Prominent cortical sulci /[id number] both Sylvian fissures. /OBX.5.1.2/OBX.5.1 Ventricular System: Ventricles are dilated in size and normal configuration. Subarachnoid Spaces: Normal sulci and cisterns. No evidence of subarachnoid hemorrhage or extra-axial fluid collections. Cerebellum and Brainstem: Normal size and signal. No masses, lesions, or areas of abnormal signal. Orbits: Normal appearance of the globes, optic nerves, and extraocular muscles. No evidence of orbital masses or abnormal signal. Sinuses: Clear paranasal sinuses. No evidence of sinusitis or mucosal thickening. Mastoid Air Cells: Clear mastoid air cells. No evidence of mastoiditis. Skull: Normal skull morphology. IMPRESSION: 1. No acute cerebral hematoma or skull fractures. 2. Periventricular white matter ischemia and chronic small vessels disease. 3. No time interval changes compared to the last study. Electronically signed by Riddhi Gifford 04-18-2024 06:35 AM
[2024-04-21 10:40] LABS: Basophils # (auto) 0.01 K/uL (0.00-0.20); Basophils % (auto) 0.2 %; Eosinophils # (auto) 0.06 K/uL (0.00-0.50); Eosinophils % (auto) 1.3 %; Hematocrit (blood only) 30.5 % (42.0-52.0); Hemoglobin 10.3 g/dl (14.0-18.0); Immature Granulocytes # (auto) 0.03 K/uL (0.01-0.20); Immature Granulocytes % (auto) 0.6 %; Lymphocytes # (auto) 0.72 K/uL (1.20-3.40); Lymphocytes % (auto) 15.1 %; Mean Corpuscular Hemoglobin 29.7 pg (25.0-34.0); Mean Corpuscular Hgb Conc 33.8 g/dL (32.0-36.0); Mean Corpuscular Volume 87.9 fL (80.0-100.0); Mean Platelet Volume 10.7 fL (9.4-12.4); Monocytes # (auto) 0.35 K/uL (0.11-0.59); Monocytes % (auto) 7.3 %; Neutrophils % (auto) 75.5 %; Platelet Count 237 K/uL (130-400); RDW Coefficient of Variation 16.6 % (11.5-14.5); RDW Standard Deviation 53.1 fL (36.4-46.3); Red Blood Count 3.47 M/uL (4.70-6.10); White Blood Count 4.77 K/ul (4.8-10.8)
[2024-04-21 10:56] LABS: BUN Creatinine Ratio 21.6 (10-20); Calcium 8.2 mg/dl (8.6-10.3); Creatinine Clr Calc Pharmacy 33.2 ml/min; Potassium 4.1 mmol/L (3.5-5.1)
--- NOTE | 2024-04-21 12:30 | Hospitalist Progress Note ---
Date of Service April 21, 2024 Assessment & Plan (1) Acute exacerbation of chronic obstructive pulmonary disease: Plan Pt is an 88 yo M w/ type 2 diabetes, CKD stage III, dyslipidemia, hypothyroidism, COPD, paroxysmal atrial fibrillation, iliac artery aneurysm bilateral, hypertension, abdominal aortic aneurysm s/p repair, endovascular stent graft for abdominal aortic aneurysm, asymptomatic bilateral carotid artery stenosis, history of CAD, heart failure with reduced ejection fraction, osteoporosis, beta-blockers contraindicated who was brought in because of frequent falls and found to be coronavirus OC43 positive with a COPD exacerbation. Was awaiting placement. Rehab and SNF placement denied by insurance. Family agreeable to taking him home with HH. Currently making arrangements Was treated for the following: Acute COPD exacerbation Non-covid coronavirus Infection Frequent falls at home Respiratory panel on admission noting coronavirus infection, non covid CTA chest unremarkable for acute changes DuoNebs [id number] and as needed Oxygen supplementation as needed Completed prednisone course Supportive care Resolved at this time Falls CT head and CT cervical spine no acute findings PT OT recommending SNF, awaiting placement had fall overnight here in the hospital, CT head negative Acute metabolic and Toxic Encpehalopathy Psychiatry service consulted for delirium Previous provider discussed with Dr. cMcall EKG obtained, QTc is less than 500 started on Seroquel 25 mg p.o. at bedtime , currently discontinued PRN zyprexa Delirium precautions. Frequent reorientation, avoid sedating medications as able Hypertension On Lasix Amlodipine 5mg BID started added Hydralazine 25 mg p.o. twice daily BP improved, cont. to monitor Paroxysmal atrial fibrillation On amiodarone and aspirin monitor QTC CKD stage III Acute Kidney Failure -Presented with creatinine 1.9 -at baseline Chronic heart failure with reduced ejection fraction Echo with EF 50% echo 09/09/2023 appears euvolemic now continue home Lasix Elevated troponin demand ischemia, resolved Bilateral lower extremity edema no DVT Type 2 diabetes -Not on meds -SSI Hyperlipidemia -On statin History of CAD -On statin and aspirin -Not on beta-alexsandra because of slow resting heart rate and pulmonary disease History of abdominal aortic aneurysm s/p repair Diet: DMII, regular DVT prophylaxis: heparin SQ Dispo: d/c to SNF when accepted Admission and Anticipated Discharge Date Admission Date: April 04, 2024 Subjective Was seen resting comfortably in bed Peer to peer denied Daughter informed Insurance recommending home with H/H services, stated that the go by therapy notes. And his notes stated that he can walk 50feet, which they state is their criteria for discharge from SNF....to qualify for SNF he would be ambulating 40m or less. CM aware, coordinating d/c home Review of Systems Review of Systems: All systems reviewed & are unremarkable except as noted in Subjective Physical Exam Physical Exam: General: Alert, orientedx2. No acute distress Psych: Appropriate mood and affect Neuro: No gross deficits while laying in bed HEENT: NC/AT CV: RRR Resp: Breath sounds clear bilaterally, no increased effort of breathing Abdomen: Soft, nontender Extremities:edema in lower extremities bilaterally. Results & Data Results & Data Vital Signs (Past 12 Hours) Vital Signs Temp Pulse Pulse Resp BP BP Pulse Ox 04/21/24 11:49 36.5 C 57 L 18 112/62 93 04/21/24 09:03 04/21/24 08:16 36.8 C 62 18 122/61 91 04/21/24 08:04 59 L 04/21/24 04:59 36.5 C 54 L 18 136/66 95 O2 Del Method 04/21/24 11:49 Room Air 04/21/24 09:03 Room Air 04/21/24 08:16 Room Air 04/21/24 08:04 04/21/24 04:59 Room Air
[2024-04-22 06:20] LABS: Hematocrit (blood only) 31.4 % (42.0-52.0); Hemoglobin 10.2 g/dl (14.0-18.0); Mean Corpuscular Hemoglobin 28.5 pg (25.0-34.0); Mean Corpuscular Hgb Conc 32.5 g/dL (32.0-36.0); Mean Corpuscular Volume 87.7 fL (80.0-100.0); Mean Platelet Volume 10.6 fL (9.4-12.4); Platelet Count 257 K/uL (130-400); RDW Coefficient of Variation 16.5 % (11.5-14.5); RDW Standard Deviation 52.2 fL (36.4-46.3); Red Blood Count 3.58 M/uL (4.70-6.10); White Blood Count 5.26 K/ul (4.8-10.8)
[2024-04-22 06:36] LABS: BUN Creatinine Ratio 19.5 (10-20); Calcium 8.3 mg/dl (8.6-10.3); Creatinine Clr Calc Pharmacy 32.8 ml/min; Potassium 3.9 mmol/L (3.5-5.1)
--- NOTE | 2024-04-22 11:44 | Hospitalist Progress Note ---
Date of Service April 22, 2024 Assessment & Plan (1) Frequent falls: (2) Delirium due to another medical condition: (3) Cognitive and behavioral changes: Plan Pt is an 88 yo M w/ type 2 diabetes, CKD stage III, dyslipidemia, hypothyroidism, COPD, paroxysmal atrial fibrillation, iliac artery aneurysm bilateral, hypertension, abdominal aortic aneurysm s/p repair, endovascular stent graft for abdominal aortic aneurysm, asymptomatic bilateral carotid artery stenosis, history of CAD, heart failure with reduced ejection fraction, osteoporosis, beta-blockers contraindicated who was brought in because of frequent falls and found to be coronavirus OC43 positive with a COPD exac erbation. Was awaiting placement. Rehab and SNF placement denied by insurance. Family agreeable to taking him home with HH. Currently making arrangements Was treated for the following: Acute COPD exacerbation Non-covid coronavirus Infection Frequent falls at home Respiratory panel on admission noting coronavirus infection, non covid CTA chest unremarkable for acute changes DuoNebs [id number] and as needed Oxygen supplementation as needed Completed prednisone course Supportive care Resolved at this time Falls CT head and CT cervical spine no acute findings PT OT recommending SNF, awaiting placement had fall overnight here in the hospital, CT head negative Acute metabolic and Toxic Encpehalopathy Psychiatry service consulted for delirium Previous provider discussed with Dr. Mccall EKG obtained, QTc is less than 500 started on Seroquel 25 mg p.o. at bedtime , currently discontinued PRN zyprexa Delirium precautions. Frequent reorientation, avoid sedating medications as able Hypertension On Lasix Amlodipine 5mg BID started added Hydralazine 25 mg p.o. twice daily BP improved, cont. to monitor Paroxysmal atrial fibrillation On amiodarone and aspirin monitor QTC CKD stage III Acute Kidney Failure -Presented with creatinine 1.9 -at baseline Chronic heart failure with reduced ejection fraction Echo with EF 50% echo 09/09/2023 appears euvolemic now continue home Lasix Elevated troponin demand ischemia, resolved Bilateral lower extremity edema no DVT Type 2 diabetes -Not on meds -SSI Hyperlipidemia -On statin History of CAD -On statin and aspirin -Not on beta-alexsandra because of slow resting heart rate and pulmonary disease History of abdominal aortic aneurysm s/p repair Diet: DMII, regular DVT prophylaxis: heparin SQ Dispo: d/c to SNF when accepted Admission and Anticipated Discharge Date Admission Date: April 04, 2024 Subjective pt seen laying in bed Denied acute concerns Anxious for discharge Spoke to daughter and would like to take him home tomorrow as they make arrangements for him at home. Review of Systems Review of Systems: All systems reviewed & are unremarkable except as noted in Subjective Physical Exam Physical Exam: General: Alert, orientedx2. No acute distress Psych: Appropriate mood and affect Neuro: No gross deficits while laying in bed HEENT: NC/AT CV: RRR Resp: Breath sounds clear bilaterally, no increased effort of breathing Abdomen: Soft, nontender Extremities:edema in lower extremities bilaterally. Results & Data Results & Data Vital Signs (Past 12 Hours) Vital Signs Temp Pulse Pulse Resp BP Pulse Ox O2 Del Method 04/22/24 11:37 36.3 C L 56 L 18 112/60 95 Room Air 04/22/24 07:30 36.8 C 58 L 14 114/62 94 Room Air 04/21/24 23:51 36.9 C 53 L 18 121/59 L 93 Room Air
[2024-04-23 06:30] LABS: Hematocrit (blood only) 31.4 % (42.0-52.0); Hemoglobin 10.5 g/dl (14.0-18.0); Mean Corpuscular Hemoglobin 29.4 pg (25.0-34.0); Mean Corpuscular Hgb Conc 33.4 g/dL (32.0-36.0); Mean Platelet Volume 10.9 fL (9.4-12.4); Platelet Count 245 K/uL (130-400); RDW Coefficient of Variation 16.6 % (11.5-14.5); RDW Standard Deviation 53.5 fL (36.4-46.3); Red Blood Count 3.57 M/uL (4.70-6.10); White Blood Count 4.83 K/ul (4.8-10.8)
[2024-04-23 06:40] LABS: BUN Creatinine Ratio 17.4 (10-20); Calcium 8.4 mg/dl (8.6-10.3); Creatinine Clr Calc Pharmacy 32.2 ml/min; Potassium 3.9 mmol/L (3.5-5.1)
--- NOTE | 2024-04-23 12:06 | Discharge Summary ---
Discharge Summary Date of Service April 23, 2024 Principal Dx & Hospital Course #1 = Principal Diagnosis (1) Frequent falls: (2) Delirium due to another medical condition: (3) Cognitive and behavioral changes: Plan Pt is an 88 yo M w/ type 2 diabetes, CKD stage III, dyslipidemia, hypothyroidism, COPD, paroxysmal atrial fibrillation, iliac artery aneurysm bilateral, hypertension, abdominal aortic aneurysm s/p repair, endovascular stent graft for abdominal aortic aneurysm, asymptomatic bilateral carotid artery stenosis, history of CAD, heart failure with reduced ejection fraction, osteoporosis, beta-blockers contraindicated who was brought in because of frequent falls and found to be coronavirus OC43 positive with a COPD exacerbation. Was awaiting placement. Rehab and SNF placement denied by insurance. Family agreeable to taking him home with HH. Discharged on 04/23/24. He was treated for the following: Acute COPD exacerbation Non-covid coronavirus Infection Frequent falls at home Respiratory panel on admission noting coronavirus infection, non covid CTA chest unremarkable for acute changes DuoNebs [id number] and as needed Oxygen supplementation as needed Completed prednisone course Supportive care Resolved at this time Falls CT head and CT cervical spine no acute findings PT OT recommending rehab/SNF, denied by insurance as per PT notes pt was able to ambulate at least 50ft with his walker had fall overnight in the hospital on 04/17, CT head negative on 04/18 Discharged home with PT/OT services Acute metabolic and Toxic Encephalopathy Psychiatry service consulted for delirium Previous provider discussed with Dr. Mccall EKG obtained, QTc is less than 500 Had unsuccessful Seroquel trial PRN zyprexa Delirium precautions. Frequent reorientation, avoid sedating medications as able At baseline on day of discharge Hypertension On Lasix Amlodipine 5mg BID started added Hydralazine 25 mg p.o. twice daily BP improved, cont. to monitor Paroxysmal atrial fibrillation On amiodarone and aspirin monitor QTC CKD stage III Acute Kidney Failure -Presented with creatinine 1.9 -at baseline Chronic heart failure with reduced ejection fraction Echo with EF 50% echo 09/09/2023 appears euvolemic now continue home Lasix Elevated troponin demand ischemia, resolved Bilateral lower extremity edema no DVT Type 2 diabetes -Not on meds -SSI Hyperlipidemia -On statin History of CAD -On statin and aspirin -Not on beta-alexsandra because of slow resting heart rate and pulmonary disease History of abdominal aortic aneurysm s/p repair Stable Notes For Next Care Provider As above Medication Changes From Visit hydralazine 25mg BID amlodipine 5mg BID Melatonin prn Admission HPI Per Admitting Provider 88-year-old male with past medical history significant for type 2 diabetes, CKD stage III, dyslipidemia, hypothyroidism, COPD, paroxysmal atrial fibrillation, iliac artery aneurysm bilateral, hypertension, abdominal aortic aneurysm s/p repair, endovascular stent graft for abdominal aortic aneurysm, asymptomatic bilateral carotid artery stenosis, history of CAD, heart failure with reduced ejection fraction, osteoporosis, beta-blockers contraindicated, who lives at home alone and daughter lives close by was brought in because of frequent falls and found to have COPD exacerbation and coronavirus OC43 positive. Patient was sleeping and was woken up. Can tell his name. Can tell his date of . Knows that he is in the hospital. Knows the month. But could not tell the year. He says he was falling at home and that is the reason was brought to hospital. Says he did not his head. Says he did not lose consciousness. Denies any fevers. Denies chest pain. Denies shortness of breath. Has some cough. No sore throat. No runny nose. No abdominal pain. Somewhat difficult to get history from the patient. Called the daughter. As per daughter patient was falling frequently last couple of days. He seemed very weak. Has been coughing more than usual. And he could not explain properly how he was falling and seemed forgetful and daughter decided to bring him to the hospital. Past medical history. As mentioned above. Past surgical history. Colonoscopy. Endovascular infrarenal abdominal aortic aneurysm repair. Parathyroidectomy. Right cataract. Right lung single lobectomy for hematoma. Right carotid endarterectomy. Vasectomy Social history. . Quit smoking 1985. Smoked 1 pack a for 28 years. Alcohol rarely. No drug use. Family history. Father had liver cancer. Admission Exam Per Admitting Provider General-Not in distress Head- atraumatic Eyes- PERRL. ENT- oropharynx clear Neck- supple, no JVD. Lungs- clear to auscultation b/l wheezing heard, no crackles Heart- regular rate and rhythm; no murmur, no gallop. Abdomen- normal bowel sounds, soft, nontender, no distension Extremities- b/l lower extremity seen. mild rash seen on feet Neuro- alert, oriented x 2; PERRL, no facial palsy; no dysarthria; moves extremities Discharge Exam General: Alert, orientedx2. No acute distress Psych: Appropriate mood and affect Neuro: No gross deficits while laying in bed HEENT: NC/AT CV: RRR Resp: Breath sounds clear bilaterally, no increased effort of breathing Abdomen: Soft, nontender Extremities:edema in lower extremities bilaterally. Updated Medication List Medication Instructions Recorded Confirmed Type amiodarone 200 mg tablet (Pacerone) 200 mg PO DAILY 12/15/19 04/04/24 History atorvastatin 80 mg tablet (Lipitor) 80 mg PO DAILY 12/15/19 04/04/24 History levothyroxine 100 mcg tablet 100 mcg PO DAILY 12/15/19 04/04/24 History furosemide 20 mg tablet 20 mg PO DAILY 12/17/22 04/04/24 History albuterol sulfate 90 mcg/actuation 90 mcg inhalation Q6H PRN sob 04/04/24 04/04/24 History aerosol inhaler aspirin 81 mg tablet,delayed 81 mg PO DAILY 04/04/24 04/04/24 History release fluticasone 250 mcg-salmeterol 50 1 inh inhalation BID 04/04/24 04/04/24 History mcg/dose blistr powdr for inhalation amlodipine 5 mg tablet (Norvasc) 5 mg PO BID #60 tabs 04/23/24 Rx hydralazine 25 mg tablet 25 mg PO BID #60 tabs 04/23/24 Rx melatonin 3 mg tablet 3 mg PO HS PRN sleep #30 tabs 04/23/24 Rx Hospital Stay Data Consultations 04/03/24 23:17 ED Decision to Admit Stat Diagnostic Imagining Performed 04/03/24 21:56 CT cervical spine wo con Stat CT head/brain wo con Stat 04/03/24 23:17 CTA chest dissec wo/w con [CT angio chest dissec wo/w con] Stat 04/04/24 03:28 US venous doppler LE BI Routine 04/18/24 05:27 CT head/brain wo con Urgent Cervical Spine CT 04/03/24 21:56 Exam(s): CT C SPINE EXAM: CT Cervical Spine Without Intravenous Contrast CLINICAL HISTORY: Reason for exam: fall. TECHNIQUE: Axial computed tomography images of the cervical spine without intravenous contrast. CTDI is 23.72 mGy and DLP is 507.36 mGy-cm. Automated exposure control was utilized for the study. A dose lowering technique was utilized adhering to the principles of ALARA. COMPARISON: No relevant prior studies available. FINDINGS: Vertebrae: Mild narrowing and osteophytosis of the atlantodental joint. The odontoid process is intact. No acute fracture. Soft tissues: Severe calcification of the left carotid bifurcation. Scarring in the right lung apex. . DISCS/SPINAL CANAL/NEURAL FORAMINA: C2-C3: Mild degenerative disc disease. No stenosis. C3-C4: Mild degenerative disc disease. No stenosis. C4-C5: Moderate degenerative disc disease. No stenosis. C5-C6: Moderate degenerative disc disease. No stenosis. C6-C7: Moderate degenerative disc disease. No stenosis. C7-T1: Mild degenerative disc disease. No stenosis. 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 No acute fracture or subluxation is seen. Electronically signed by: Tariq Bryan MD 04/03/24 23:25 PM Chest X-Ray 04/03/24 21:56 Exam(s): XR CXR 1 VIEW EXAM: XR Chest, 1 View CLINICAL HISTORY: Reason for exam: weakness. TECHNIQUE: Frontal view of the chest. COMPARISON: January 17, 2007 FINDINGS: Lungs: Scarring in the right lung apex, similar to previous. There are surgical clips in the right hilar region with volume loss consistent with previous partial right pneumonectomy, similar to previous. No new infiltrate identified. Pleural space: Unremarkable. No pneumothorax. Heart: Mild cardiomegaly. Mediastinum: Unremarkable. Normal mediastinal contour. Bones/joints: Mild degenerative changes in the spine. No acute fracture. Vasculature: The aortic arch is calcified and tortuous, increased since previous. Upper abdomen: Unremarkable as visualized. No pneumoperitoneum is seen under the diaphragm. IMPRESSION: 1. Mild cardiomegaly. 2. The aortic arch is calcified and tortuous, increased since previous. 3. Scarring in the right lung apex, similar to previous. There are surgical clips in the right hilar region with volume loss consistent with previous partial right pneumonectomy, similar to previous. No new infiltrate identified. Electronically signed by: Tariq Bryan MD 04/03/24 23:[address] 04/03/24 21:56 Exam(s): CT HEAD Without Contrast EXAM: CT Head Without Intravenous Contrast CLINICAL HISTORY: Reason for exam: fall. TECHNIQUE: Axial computed tomography images of the head/brain without intravenous contrast. CTDI is 37.61 mGy and DLP is 546.36 mGy-cm. Automated exposure control was utilized for the study. A dose lowering technique was utilized adhering to the principles of ALARA. COMPARISON: December 17, 2022 FINDINGS: Brain: Mild cerebral atrophy and periventricular white matter low density consistent with chronic small vessel disease and/or senescent changes, similar to previous. No acute large vessel infarct or intracranial hemorrhage is seen. Ventricles: Mildly prominent. No mass or hemorrhage. Bones/joints: Unremarkable. No acute fracture. Soft tissues: Unremarkable. Sinuses: Unremarkable as visualized. No acute sinusitis. Mastoid air cells: Unremarkable as visualized. No mastoid effusion. IMPRESSION: Mild cerebral atrophy and periventricular white matter low density consistent with chronic small vessel disease and/or senescent changes, similar to previous. No acute large vessel infarct or intracranial hemorrhage is seen. Electronically signed by: Tariq Bryan MD 04/03/24 23:24 PM Chest CTA 04/03/24 23:17 EXAM: CT angio chest dissec wo/w con CLINICAL HISTORY: Dissection TECHNIQUE: Contiguous 3.[address] angiographic images of the chest were acquired with the administration of intravenous contrast. Coronal and sagittal reconstructions were obtained. One of these 3D techniques was utilized: Maximum Intensity Pixel (MIP), 3D Reconstructed Images, Volume Rendered Images, Surface Shaded Rendering. One of the following dose reduction techniques were utilized for this exam: Automated exposure control, adjustment of the mA and/or kV according to patient size, and use of iterative reconstruction. COMPARISON: 12/17/2022 FINDINGS: Pulmonary Arteries: Pulmonary arteries are normal in size and opacification. No evidence of pulmonary embolism. No stenosis or filling defects. Aorta: The thoracic aorta shows atherosclerotic changes. No evidence of dissection. Ascending aorta measures 36 mm, normal in caliber. Mild aneurysmal dilatation of arch of aorta, measuring 33 mm and descending thoracic aorta, measuring 32 x 28 mm in maximum caliber . Tortuous descending thoracic aorta. Mediastinum: Few sub centimetric calcified mediastinal and right hilar nodes. Heart: Normal size and morphology of the heart. No pericardial effusion. Lungs: Centrilobular emphysematous changes in both lungs Right apical fibrosis noted with multifocal areas of subpleural fibrosis in both lungs with thin parenchymal fibrotic strands. Sequelae to prior infection likely. Minimal subpleural atelectatic changes in basal segments. No pleural effusion or thickening. Bones: Degenerative changes in thoracic spine. Age-indeterminate superior endplate fracture of T12 vertebral body with central depression and lucent line along the posterior superior aspect on right side, the possibility of acute fracture cannot be excluded. Recommended clinical correlation with point tenderness Anterior wedging of T6-T8 vertebral body with superior endplate collapse, likely old osteoporotic changes. Soft Tissues: Normal appearance of the visualized soft tissues. No abnormal masses or fluid collections. Upper Abdomen: Pancreatic fatty replacement with bilateral perinephric fat stranding. IMPRESSION: 1. No evidence of aortic dissection at present. 2. Age-indeterminate superior endplate fracture of T12 vertebral body with central depression and lucent line along the posterior superior aspect on right side, the possibility of acute fracture cannot be excluded. Recommended clinical correlation with point tenderness and MRI if warranted. New interval findings. 3. Mild aneurysmal dilatation of arch of aorta, measuring 33 mm and descending thoracic aorta, measuring 32 x 28 mm in maximum caliber. Interval stable. 4. Anterior wedging of T6-T8 vertebral body with superior endplate collapse, likely old osteoporotic changes. Interval progression. 5. COPD. Interval stable. 6. Sequelae to prior infection in both lungs as described. Near interval stable. Electronically signed by Riddhi Gifford 04-04-2024 01:02 AM Venous Doppler Study 04/04/24 03:28 EXAM: US venous doppler LE CLINICAL HISTORY: b/l lower ext edema. dvt TECHNIQUE: Ultrasound examination of bilateral lower extremity veins was performed in real time and duplex. One or more of the following were performed- spectral analysis, resistive index, waveform analysis, and pulsed Doppler. COMPARISON: None. FINDINGS: Normal phasic, non-pulsatile and spontaneous flow is noted in bilateral common femoral, superficial femoral, popliteal, anterior tibial, posterior tibial and peroneal veins. Visualized veins of both lower extremities demonstrate normal compressibility. No sonographic evidence of acute deep vein thrombosis (DVT) is detected in the visualized veins of both lower extremities. Compression and Augmentation: All evaluated veins compress fully with applied transducer pressure. Augmentation of venous flow is noted with distal compression. Additional Findings: No evidence of intraluminal thrombus. A plaque is noted within the right common femoral artery. A cystic area seen in the left groin measuring 3.2 x 3.1 x 3.2 cm. IMPRESSION: 1. No sonographic evidence of acute DVT detected in bilateral lower extremity veins, at the time of examination. 2. A plaque is noted within the right common femoral artery. 3. A cystic area seen in the left groin measuring 3.2 x 3.1 x 3.2 cm, in view of patient history could be postoperative seroma/collection. Disclaimer: DVT could be missed early in the disease when clot burden is minimal. For patients with moderate and high pretest probability of DVT and negative ultrasound, the [employer] clinical guidelines recommend testing with a D-dimer assay or repeat ultrasound in 5-7 days. If symptoms worsen, the Society of radiologists in ultrasound recommends repeating ultrasound even earlier. Electronically signed by Riddhi Gifford 04-04-2024 05:04 AM Chest X-Ray 04/07/24 03:59 EXAM: XR chest 1V portable CLINICAL HISTORY: wheeze TECHNIQUE: An X-ray image of the chest is obtained in AP projection. COMPARISON: CT angio 04/03/2024. FINDINGS: Pulmonary Parenchyma: Lungs show prominent perihilar bronchovascular markings. No evidence of consolidation, collapse, or focal opacities. No pulmonary nodules are identified. No evidence of pleural effusion or pleural thickening. Heart and Mediastinum: Prominent aortic arch. Heart size and shape are normal. No mediastinal widening or masses. No hilar or mediastinal lymphadenopathy. Bony Thorax: Bony thorax appears intact without fractures or deformities. Soft Tissues: Soft tissues overlying the chest wall are unremarkable. IMPRESSION: 1. Lungs show prominent bronchovascular markings, and a specific finding clinical correlation and further assessment are advised.Prominent aortic arch, suggesting mild dilatation as noted with previous CT. Electronically signed by Riddhi Gifford 04-07-2024 06:20 AM Chest X-Ray 04/08/24 08:09 XR chest 1V portable CLINICAL HISTORY: wheezing, copd exacerbation COMPARISON STUDY: 04/07/2024 FINDINGS: Single view portable chest demonstrates no significant interval change and no acute cardiopulmonary process. There is no airspace opacity or pleural effusion. Chronic prominence of the basilar lung markings is unchanged. Old right rib deformity noted. Fibrotic thickening in the right pulmonary apex is redemonstrated. Postsurgical changes are noted in the right hilum. The heart size is within normal limits with left ventricular prominence. The thoracic aorta is contains calcified plaque and is ectatic. IMPRESSION: No acute process identified. ACT 112: Negative or not required by law. Electronically signed by: Olena Núñez M.D. 04/08/2024 11:[address] 04/18/24 05:27 EXAM: CT head/brain wo con CLINICAL HISTORY: unwitnessed fall TECHNIQUE: Axial non-contrast CT scan of the brain was performed from the skull base to the high parietal region. One of the following dose reduction techniques were utilized for this exam: Automated exposure control, adjustment of the mA and/or kV according to patient size, use of iterative reconstruction. COMPARISON: 04/03/2024 CT. FINDINGS: Brain Parenchyma: Evidence of an abnormal area of low attenuation noted at the periventricular white matter area with bilateral hypodense foci at both norris radiate and centrum semiovale.. Normal attenuation of the cerebellum, and brainstem. No evidence of acute infarct, hemorrhage, or mass effect. [id number] Prominent cortical sulci /[id number] both Sylvian fissures. /OBX.5.1.2/OBX.5.1 Ventricular System: Ventricles are dilated in size and normal configuration. Subarachnoid Spaces: Normal sulci and cisterns. No evidence of subarachnoid hemorrhage or extra-axial fluid collections. Cerebellum and Brainstem: Normal size and signal. No masses, lesions, or areas of abnormal signal. Orbits: Normal appearance of the globes, optic nerves, and extraocular muscles. No evidence of orbital masses or abnormal signal. Sinuses: Clear paranasal sinuses. No evidence of sinusitis or mucosal thickening. Mastoid Air Cells: Clear mastoid air cells. No evidence of mastoiditis. Skull: Normal skull morphology. IMPRESSION: 1. No acute cerebral hematoma or skull fractures. 2. Periventricular white matter ischemia and chronic small vessels disease. 3. No time interval changes compared to the last study. Electronically signed by Riddhi Gifford 04-18-2024 06:35 AM Discharge Instructions Given to Patient (Per Discharging Provider) Mr. Pickett, You are being discharged home with home health services. Please continue with the medications amlodipine 5mg twice a day and hydralazine 25mg twice a day to help with your blood pressure at home. You were also using melatonin here as needed to help with sleep. Can continue that at home as well, as needed. Please keep close follow up with your primary care provider after discharge. Please do not hesitate to come back to the emergency room if your symptoms worsen or return. It was a pleasure taking care of you while you were here. Total Time Total Time Spent Total Time Spent (In Minutes): 45
[2024-04-23 12:07] VITALS: PULSE 59; RESP 18; TEMP 97.7; O2SAT 96
[2024-04-23 13:23] VITALS: BP 149/67
== END 2024-04-23 13:46 | disposition home health service (06) | DRG 190 ==
LOC: ED 21:47 → SUATTDRO 04-04 02:56 → EDINP 04-04 02:56 → 2W 04-04 03:28